=== PATIENT | male | born 1980 | race African-American/Black ===

== ENCOUNTER 2016-12-16 20:22 | Inpatient (IN) | payer OTHER ==
[2016-12-16] MEDS ORDERED: SODIUM CHLORIDE 0.9% 1000 ML INFUS.BAG IV PRN (21:01)
--- NOTE | 2016-12-16 21:48 | PDOC ---
History of Present Illness - General Chief Complaint: Blood Pressure Problem Stated Complaint: ALTERED MENTAL STATUS Time Seen by Provider: 12/16/16 20:27 Past History - Past Medical History Allergies/Adverse Reactions: Allergies Allergy/AdvReac Type Severity Reaction Status Date / Time No Known Allergies Allergy Verified 06/18/13 23:43 Home Medications: Ambulatory Orders Atenolol [Tenormin -] 25 mg PEG DAILY 06/19/13 Baclofen [Lioresal -] 10 mg PEG DAILY 06/19/13 LA/Bif Animalis/lb/S.thermophl [Acidophilus Xtra Caplet] 1 each PEG BID Metoclopramide HCl 10 mg PEG BID 06/19/13 Mometasone Furoate [Nasonex] 1 - 2 inh NS DAILY 06/19/13 Omeprazole Magnesium [Prilosec (OTC)] 20 mg PEG BID 06/19/13 Pnv/Iron,Carb/Om-3/FA/Fat 1 [Multivitamin with Minerals Cap] 1 cap PEG DAILY Potassium Chloride 10 meq PEG DAILY 06/19/13 Tiagabine HCl [Gabitril] 4 mg PEG TID 06/19/13 Tizanidine HCl 4 mg PEG QID 06/19/13 Anemia: No Asthma: No Cancer: No Cardiac Disorders: No CVA: No COPD: No CHF: No Dementia: Yes Diabetes: No GI Disorders: Yes (feeding tube) Disorders: No HTN: No Hypercholesterolemia: No Liver Disease: No Seizures: No Thyroid Disease: No - Surgical History Abdominal Surgery: Yes (feeding tube) - Suicide/Smoking/Psychosocial Hx Smoking History: Never smoked Have you smoked in the past 12 months: No Hx Alcohol Use: No Substance Use Type: None *Physical Exam - Vital Signs Last Vital Signs Temp Pulse Resp BP Pulse Ox 99.6 F 78 18 91/60 97 12/16/16 20:26 12/16/16 20:26 12/16/16 20:26 12/16/16 20:26 12/16/16 20:26
--- NOTE | 2016-12-16 21:48 | PDOC ---
History of Present Illness - General Chief Complaint: Blood Pressure Problem Stated Complaint: ALTERED MENTAL STATUS Time Seen by Provider: 12/16/16 20:27 History Source: Half-Way Records Exam Limitations: Clinical Condition - History of Present Illness Initial Comments: 12/16/16 21:42 Patient is a 36M with history of congenital quadriplegia, general convulsive epilepsy, profound mental retardation and monocular exotropia here today complaining of hypotensino. longterm records state that his blood pressure was 84/34 and was satting 80% on room air. There's no mention of fever. The only other history available is that he has a new GT and JT tube. The start time of these symptoms is unclear. Past History - Past Medical History Allergies/Adverse Reactions: Allergies Allergy/AdvReac Type Severity Reaction Status Date / Time No Known Allergies Allergy Verified 06/18/13 23:43 Home Medications: Ambulatory Orders Atenolol [Tenormin -] 25 mg PEG DAILY 06/19/13 Baclofen [Lioresal -] 10 mg PEG DAILY 06/19/13 LA/Bif Animalis/lb/S.thermophl [Acidophilus Xtra Caplet] 1 each PEG BID Metoclopramide HCl 10 mg PEG BID 06/19/13 Mometasone Furoate [Nasonex] 1 - 2 inh NS DAILY 06/19/13 Omeprazole Magnesium [Prilosec (OTC)] 20 mg PEG BID 06/19/13 Pnv/Iron,Carb/Om-3/FA/Fat 1 [Multivitamin with Minerals Cap] 1 cap PEG DAILY Potassium Chloride 10 meq PEG DAILY 06/19/13 Tiagabine HCl [Gabitril] 4 mg PEG TID 06/19/13 Tizanidine HCl 4 mg PEG QID 06/19/13 Anemia: No Asthma: No Cancer: No Cardiac Disorders: No CVA: No COPD: No CHF: No Dementia: Yes Diabetes: No GI Disorders: Yes (feeding tube) Disorders: No HTN: No Hypercholesterolemia: No Liver Disease: No Seizures: No Thyroid Disease: No - Surgical History Abdominal Surgery: Yes (feeding tube) - Suicide/Smoking/Psychosocial Hx Smoking History: Never smoked Have you smoked in the past 12 months: No Hx Alcohol Use: No Substance Use Type: None Review of Systems - Review of Systems Able to Perform ROS?: No *Physical Exam - Vital Signs Last Vital Signs Temp Pulse Resp BP Pulse Ox 99.6 F 78 18 91/60 97 12/16/16 20:26 12/16/16 20:26 12/16/16 20:26 12/16/16 20:26 12/16/16 20:26 - Physical Exam Comments: 12/16/16 21:55 GENERAL: Awake, non-communicative, large amount of excretions around mouth HEAD: Atraumatic EYES: PERRLA, EOMI, sclera anicteric, conjunctiva clear ENT: Auricles normal inspection, hearing grossly normal, nares patent, oropharynx clear without exudates. Moist mucosa LUNGS: Tachypneic, coarse breath sounds bilaterally. HEART: Regular rate and rhythm, normal S1 and S2, no murmurs, rubs or gallops, peripheral pulses normal and equal bilaterally. ABDOMEN: Soft, nontender, normoactive bowel sounds. G tube and J tube present. No guarding, no rebound. NEUROLOGICAL: Cranial nerves II through XII grossly intact. No focal sensorimotor deficits, moves all extremities SKIN: Warm, Dry, normal turgor, no rashes or lesions noted. ED Treatment Course - RADIOLOGY Radiology Studies Ordered: Category Date Time Status CHEST X-RAY PORTABLE* [RAD] Stat Radiology 12/16/16 21:01 Ordered Medical Decision Making - Medical Decision Making 12/16/16 21:56 Patient is a 36M with history of profound mental retardation, congenital quadriplegia, exopthalmos here today complaining of hypotension. Initial blood pressure here 91/60. Septic workup initiated. Will sign out to Dr Roach. Concern is for aspiration pneumonia. *DC/Admit/Observation/Transfer Diagnosis at time of Disposition: Pneumonia
--- NOTE | 2016-12-16 21:50 | PDOC ---
Attending Attestation - Medical Decision Making 12/17/16 04:31 THIS IS A PRELIMINARY REPORT FROM [facility] EXAM: CT ABDOMEN AND PELVIS without contrast IMAGES: [id number] EXAM DATE AND TIME: 2016-12-17 01:06:36 REASON FOR EXAM: Abdominal pain COMPARISON: None. FINDINGS: Lung bases are clear. The visualized cardiac chambers are normal size and configuration. Normal unenhanced liver, gallbladder, pancreas, spleen, adrenal glands and kidneys. Jejunostomy tube appears to be appropriately positioned without obvious bowel obstruction or inflammation there is a moderate amount of pelvic free fluid with layering density, possibly indicating bowel perforation and intraperitoneal contrast.. There is no aortic aneurysm. There is no significant retroperitoneal lymphadenopathy. Appendix not identified. The urinary bladder and prostate gland are normal. There is no significant pelvic lymphadenopathy. Severe scoliosis is noted. There is a right ischial decubitus ulcer with possible chronic right ischial tuberosity osteomyelitis. There is no discrete abscess. Both hips are dislocated, presumably chronic. IMPRESSION Moderate amount of free fluid within the layering dense material, possibly intraperitoneal oral contrast without perforation although there is no definite free air or abscess. Posterior right pelvic effusion is also suspected chronic osteomyelitis of the right ischial tuberosity. Addendum: There aren't acute dissected droplets of free air within the fluid which would also suggest a bowel perforation. There is a left abdominal ostomy as well. This finding was verbally communicated to Doctor Zachary on ThuDecember 17 2016 03:51:59 EDT. THIS DOCUMENT HAS BEEN ELECTRONICALLY SIGNED Gokul Michele MD <Andra Sifuentes - Last Filed: 12/17/16 04:31> - Resident Resident Name: Doc Enamorado - ED Attending Attestation I have performed the following: I have examined & evaluated the patient, The case was reviewed & discussed with the resident, I agree w/resident's findings & plan, Exceptions are as noted - HPI HPI: 12/16/16 21:49 36 yo male BIBA from [facility] for hypotension and hypoxia PMH MR,quadraplegia with congental deformities PSH j tube,g tube 12/16/16 22:00 - Physicial Exam PE: 12/16/16 22:02 36 yo male brouight in with unstable vital signs hypotensive and hypoxia eyes exohthalmous lungs coaurse breath sounds,rhonchi abd has g tube neuro nonverbal.nonambulatory - Medical Decision Making 12/16/16 22:03 Concern for sepsis and sepsis w/u initiated 12/17/16 05:00 PT GIVEN OC ACOSTA thru g tube/wbc 20,000 admitted to hospitalist <Yoselin Roach - Last Filed: 12/17/16 05:01>
[2016-12-16 23:05] LABS: INR 1.15 (0.82-1.09); PROTHROMBIN TIME (PATIENT) 12.7 SEC (9.98-11.88)
[2016-12-16 23:08] LABS: ACTIVATED PTT 20.6 SECONDS (26.9-34.4)
[2016-12-16 23:14] LABS: MCH 23.9 pg (25.7-33.7); MCHC 32.8 g/dl (32.0-35.9); MEAN CELL VOLUME 72.9 fl (80-96); MEAN PLT VOLUME 7.7 fl (7.5-11.1); PLATELET COUNT 334 K/MM3 (134-434); RDW 15.8 % (11.9-15.9); WHITE BLOOD COUNT 20.1 K/mm3 (4.0-10.0)
[2016-12-16 23:18] LABS: ALBUMIN 3.9 g/dl (3.4-5.0); ANION GAP 10 (8-16); BILIRUBIN,TOTAL 0.7 mg/dL (0.2-1.0); CALCIUM 9.5 mg/dL (8.5-10.1); CO2 35 mmol/L (21-32); CREATININE 0.4 mg/dL (0.7-1.3); GLUCOSE,RANDOM 93 mg/dL (74-106); SGOT/AST 11 U/L (15-37); SGPT/ALT 18 U/L (12-78); TOT PROT 8.1 g/dl (6.4-8.2)
[2016-12-16 23:20] LABS: ALK PHOS 61 U/L (45-117); CPK 78 IU/L (39-308); TROPONIN I < 0.02 ng/ml (0.00-0.05)
[2016-12-17 00:04] LABS: PLATELET ESTIMATE ADEQUATE (NORMAL)
[2016-12-17 00:05] LABS: REACTIVE LYMPHOCYTES 1 % (0-80); TOTAL CELLS COUNTED 100
[2016-12-17 00:53] LABS: VENOUS PH 7.41 (7.32-7.42)
[2016-12-17 00:55] LABS: VENOUS BLOOD GAS HCO3 35.2 meq/L (19-25)
[2016-12-17] MEDS ORDERED: LEVOFLOXACIN 250 MG TABLET (FP) PO ONE (04:24)
[2016-12-17] MEDS ORDERED: LEVOFLOXACIN 500 MG TABLET (FP) ONE ×2 (04:30→04:44)
[2016-12-17] MEDS ORDERED: LEVOFLOXACIN 250 MG TABLET (FP) ONE ×2 (04:30→04:44)
[2016-12-17] MEDS ORDERED: metroNIDAZOLE 500 MG TABLET PO ONE (04:32)
[2016-12-17] MEDS ORDERED: metroNIDAZOLE 250 MG TABLET ONE ×2 (04:34→04:44)
--- NOTE | 2016-12-17 04:49 | PN ---
Teaching Attending Note Name of Resident: Papi Randhawa ATTENDING PHYSICIAN STATEMENT I saw and evaluated the patient. I reviewed the resident's note and discussed the case with the resident. I agree with the resident's findings and plan as documented. SUBJECTIVE: 36 yo M with pmhx of congenital quadriplegia, general convulsive epilepsy, profound mental retardation, and monocular extropia who was BIBA from [facility] for hypotension and increased RR (26). Upon arrival to ED pt.s BP was in 90-100 systolic and RR 20, with 02 97%. History cannot be obtained from pt. due to diminished capacity due to MR. History obtained from chart. OBJECTIVE: Physical: VS: Vital Signs Period Temp Pulse Resp BP Sys/Bruce Pulse Ox Last 24 Hr 99.6 F 78 18 91/60 97-98 GEN: NAD, resting in bed, AA0X0 HEENT: NCAT, PERRL, extropia CARD: RRR S1, S2 RESP: CTAB ABD: Open stoma mid epigastric area with area surrounding J tube with serosanginous drainage and pus. LLQ stoma draining yellow fluid. Pt. contracted unable to exam low back buttocks. EXT: Contracted extremities, No C/C/E CBCD WBC 20.1 K/mm3 (4.0-10.0) H D 12/16/16 22:44 RBC 4.41 M/mm3 (4.00-5.60) 12/16/16 22:44 Hgb 10.5 GM/dL (11.7-16.9) L 12/16/16 22:44 Hct 32.1 % (35.4-49) L 12/16/16 22:44 MCV 72.9 fl (80-96) L 12/16/16 22:44 MCHC 32.8 g/dl (32.0-35.9) 12/16/16 22:44 RDW 15.8 % (11.9-15.9) 12/16/16 22:44 Plt Count 334 K/MM3 (134-434) 12/16/16 22:44 MPV 7.7 fl (7.5-11.1) 12/16/16 22:44 CMP Sodium 132 mmol/L (136-145) L 12/16/16 22:44 Potassium 3.6 mmol/L (3.5-5.1) 12/16/16 22:44 Chloride 87 mmol/L (98-107) L 12/16/16 22:44 Carbon Dioxide 35 mmol/L (21-32) H D 12/16/16 22:44 Anion Gap 10 (8-16) 12/16/16 22:44 BUN 24 mg/dL (7-18) H 12/16/16 22:44 Creatinine 0.4 mg/dL (0.7-1.3) L 12/16/16 22:44 Creat Clearance w eGFR > 60 (>60) 12/16/16 22:44 Random Glucose 93 mg/dL (74-106) D 12/16/16 22:44 Calcium 9.5 mg/dL (8.5-10.1) 12/16/16 22:44 Total Bilirubin 0.7 mg/dL (0.2-1.0) D 12/16/16 22:44 AST 11 U/L (15-37) L 12/16/16 22:44 ALT 18 U/L (12-78) 12/16/16 22:44 Alkaline Phosphatase 61 U/L (45-117) 12/16/16 22:44 Total Protein 8.1 g/dl (6.4-8.2) 12/16/16 22:44 Albumin 3.9 g/dl (3.4-5.0) D 12/16/16 22:44 CARDIAC ENZYMES Creatine Kinase 78 IU/L (39-308) 12/16/16 22:44 Troponin I < 0.02 ng/ml (0.00-0.05) 12/16/16 22:44 CXR: NO acute Process CT ABD/PELVIS:Moderate Free fluid within layering dense material, possibly intraperitoneal oral contrast without perforation, although there is no definate free air or abscess. Posterior R. Pelvic Effusion, suspected Chronic Osteo of R. Iscial tuberosity. There are not acute dissected droplets of free air within the fluid. L. Abdominal ostomy. Ambulatory Orders Atenolol [Tenormin -] 25 mg PEG DAILY 06/19/13 Baclofen [Lioresal -] 10 mg PEG DAILY 06/19/13 LA/Bif Animalis/lb/S.thermophl [Acidophilus Xtra Caplet] 1 each PEG BID Metoclopramide HCl 10 mg PEG BID 06/19/13 Mometasone Furoate [Nasonex] 1 - 2 inh NS DAILY 06/19/13 Omeprazole Magnesium [Prilosec (OTC)] 20 mg PEG BID 06/19/13 Pnv/Iron,Carb/Om-3/FA/Fat 1 [Multivitamin with Minerals Cap] 1 cap PEG DAILY Potassium Chloride 10 meq PEG DAILY 06/19/13 Tiagabine HCl [Gabitril] 4 mg PEG TID 06/19/13 Tizanidine HCl 4 mg PEG QID 06/19/13 ASSESSMENT AND PLAN: 36 yo M with pmhx of MR, Quadriplegia, epilepsy, who was BIBA for Inc RR, and hypotension was found to have a leukocytosis in ED. Being admitted for sepsis 1.) Sepsis (inc. RR/Leukocytosis) - Most likley source gtube stoma, - manzano cx - Wound care/sx to eval. Stoma - UA stat - IVF - Repeat LA - Unable to obtain IV acess on patient- Levaquin/Flagyl for now - Wound cx - ESR/CRP 2.) Chronic OSteo of R. Iscial tuberosity -ESR/CRP - ID 3.) HTN - Hold all meds 4.) Dvt Ppx - Mod Risk - Scds for now Place in Med- Sx
--- NOTE | 2016-12-17 05:07 | HP ---
CHIEF COMPLAINT: Hypotension PCP: Anand HISTORY OF PRESENT ILLNESS: History taken from records and staff as patient is noncommunicative. Pt is 36M with extensive PMH including Congenital Quadriplegia, General convulsive epilepsy, Profound MR, Monocular extropia, nonverbal, severe mental deficit sent to ED because of hypotension (84/34) and hypoxia (80% on RA). Pt had a new J tube placed recently (exact date unknown). ER course was notable for: (1) Leukocytosis of 20, CT showing no acute free air in abdomen (2) (3) Recent Travel: none PAST MEDICAL HISTORY: as above PAST SURGICAL HISTORY: Social History: Smoking: no Alcohol: no Drugs: no Family History: none Allergies No Known Allergies Allergy (Verified 06/18/13 23:43) HOME MEDICATIONS: Home Medications Medication Instructions Recorded Atenolol [Tenormin -] 25 mg PEG DAILY 06/19/13 Baclofen [Lioresal -] 10 mg PEG DAILY 06/19/13 LA/Bif Animalis/lb/S.thermophl 1 each PEG BID 06/19/13 [Acidophilus Xtra Caplet] Metoclopramide HCl 10 mg PEG BID 06/19/13 Mometasone Furoate [Nasonex] 1 - 2 inh NS DAILY 06/19/13 Omeprazole Magnesium [Prilosec 20 mg PEG BID 06/19/13 (OTC)] Pnv/Iron,Carb/Om-3/FA/Fat 1 1 cap PEG DAILY 06/19/13 [Multivitamin with Minerals Cap] Potassium Chloride 10 meq PEG DAILY 06/19/13 Tiagabine HCl [Gabitril] 4 mg PEG TID 06/19/13 Tizanidine HCl 4 mg PEG QID 06/19/13 REVIEW OF SYSTEMS Limited. Pt is noncommunicative. CONSTITUTIONAL: Absent: fever, chills, diaphoresis, generalized weakness, malaise, loss of appetite, weight change HEENT: Absent: rhinorrhea, nasal congestion, throat pain, throat swelling, difficulty swallowing, mouth swelling, ear pain, eye pain, visual changes CARDIOVASCULAR: Absent: chest pain, syncope, palpitations, irregular heart rate, lightheadedness , peripheral edema RESPIRATORY: Absent: cough, shortness of breath, dyspnea with exertion, orthopnea, wheezing, stridor, hemoptysis GASTROINTESTINAL: Absent: abdominal pain, abdominal distension, nausea, vomiting, diarrhea, constipation, melena, hematochezia GENITOURINARY: Absent: dysuria, frequency, urgency, hesitancy, hematuria, flank pain, genital pain MUSCULOSKELETAL: Absent: myalgia, arthralgia, joint swelling, back pain, neck pain SKIN: Absent: rash, itching, pallor HEMATOLOGIC/IMMUNOLOGIC: Absent: easy bleeding, easy bruising, lymphadenopathy, frequent infections ENDOCRINE: Absent: unexplained weight gain, unexplained weight loss, heat intolerance, cold intolerance NEUROLOGIC: Absent: headache, focal weakness or paresthesias, dizziness, unsteady gait, seizure, mental status changes, bladder or bowel incontinence PSYCHIATRIC: Absent: anxiety, depression, suicidal or homicidal ideation, hallucinations. PHYSICAL EXAMINATION Vital Signs - 24 hr 12/16/16 12/16/16 20:26 22:45 Temperature 99.6 F Pulse Rate 78 Respiratory 18 Rate Blood Pressure 91/60 O2 Sat by Pulse 97 98 Oximetry (%) Limited exam. Pt noncommunicative GENERAL: Noncommunicative. Contracted HEAD: Normal with no signs of trauma. EYES:sclera anicteric, conjunctiva clear. EARS, NOSE, THROAT: nares patent, Moist mucous membranes. NECK: without lymphadenopathy, JVD, or masses. LUNGS: Breath sounds equal, clear to auscultation bilaterally. Pt makes noise, therefore difficult to auscultate HEART: Regular rate and rhythm, normal S1 and S2 without murmur, rub or gallop. ABDOMEN: Soft, not distended, normoactive bowel sounds, no guarding, no rebound , no masses. No hepatomegaly or splenomegaly. Colostomy intact and funtioning with pink healthy borders. J tube site looks infected/excoriated and funk. Possibly with exposed jejunum protruding. Borders of wound are funk and appear in poor condition. No active bleeding. Inferior Right buttock has small healing incision from prior procedure with dressing. No oozing. No sacral/hip decubitous ulcers MUSCULOSKELETAL: contracted. atrophy UPPER EXTREMITIES: 2+ pulses,contracted LOWER EXTREMITIES: 2+ pulses, No peripheral edema. SKIN: Warm, dry, normal turgor, no rashes or lesions noted, normal capillary refill. Laboratory Results - last 24 hr 12/16/16 12/16/16 12/16/16 22:44 22:44 22:44 WBC 20.1 H D RBC 4.41 Hgb 10.5 L Hct 32.1 L MCV 72.9 L MCH 23.9 L MCHC 32.8 RDW 15.8 Plt Count 334 MPV 7.7 Total Counted 100 Neutrophils % No Result Required. Neutrophils % (Manual) 78 Band Neuts % (Manual) 2 Lymphocytes % No Result Required. Lymphocytes % (Manual) 10 Monocytes % (Manual) 8 Eosinophils % (Manual) 1 Other Cell Type Platelet Estimate Adequate Platelet Comment Rare giant plts PT with INR 12.70 H INR 1.15 H PTT (Actin FS) 20.6 L VBG pH POC VBG pCO2 POC VBG pO2 Mixed VBG HCO3 Sodium 132 L Potassium 3.6 Chloride 87 L Carbon Dioxide 35 H D Anion Gap 10 BUN 24 H Creatinine 0.4 L Creat Clearance w eGFR > 60 Random Glucose 93 D Lactic Acid Calcium 9.5 Total Bilirubin 0.7 D AST 11 L ALT 18 Alkaline Phosphatase 61 Creatine Kinase 78 Troponin I < 0.02 Total Protein 8.1 Albumin 3.9 D Blood Type Antibody Screen 12/16/16 12/16/16 12/17/16 22:44 22:44 00:35 WBC RBC Hgb Hct MCV MCH MCHC RDW Plt Count MPV Total Counted Neutrophils % Neutrophils % (Manual) Band Neuts % (Manual) Lymphocytes % Lymphocytes % (Manual) Monocytes % (Manual) Eosinophils % (Manual) Other Cell Type Platelet Estimate Platelet Comment PT with INR INR PTT (Actin FS) VBG pH 7.41 POC VBG pCO2 56.9 H POC VBG pO2 105.0 H Mixed VBG HCO3 35.2 H Sodium Potassium Chloride Carbon Dioxide Anion Gap BUN Creatinine Creat Clearance w eGFR Random Glucose Lactic Acid 1.2 Calcium Total Bilirubin AST ALT Alkaline Phosphatase Creatine Kinase Troponin I Total Protein Albumin Blood Type A POSITIVE Antibody Screen Negative ASSESSMENT/PLAN: 36M w/ PMH Congenital Quadriplegia, General convulsive epilepsy, Profound MR, Monocular extropia, nonverbal, severe mental deficit sent to ED because of hypotension and hypoxia. Pt is being admitted for sepsis workup & possible wound infection. #Sepsis -tachypnea -leukocytosis -likely site, J-tube -U culture -blood culture -wound site culture -IV with IVF if possible to get a line -Levaquin & flagyl until line obtained -ESR, CRP #J-tube site -Appears in poor state. Edges of wound are discolored and inflamed. possibly with protruding bowel through excoriated skin with erythema and drainage -wound culture -levaqfederico, flagyl -Surg consult -ID consult #Hypotension -resolved. BP systolic now 130's -monitor #leukocytosis -WBC 20 -Levaquin -Flagyl #Chronic osteo of Ischial tuberosity -ESR/CRP #HTN -Hold meds at this time #DVT PPX -SCDs -HSQ #FEN -No fluids because of no IV -Na low - will replete -NPO for now #Dispo: admit to same day surgery center Papi Randhawa MD PGY-1 Discussed with senior Visit type - Emergency Visit Emergency Visit: Yes ED Registration Date: 12/17/16 Care time: The patient presented to the Emergency Department on the above date and was hospitalized for further evaluation of their emergent condition. - New Patient This patient is new to me today: Yes Date on this admission: 12/18/16 - Critical Care Critical Care patient: No
--- NOTE | 2016-12-17 05:52 | HP ---
Admitting History and Physical - Admission Chief Complaint: desaturation History of Present Illness: 36 yo M with pmhx of congenital quadriplegia, general convulsive epilepsy, profound mental retardation, and monocular extropia who was BIBA from [facility] for hypotension desaturation and tachypnea. History taken from chart and ED as patient is non verbal. Patient noted to be septic in ED with leurkocytosis and tachypnea. No IV placed as he is a difficult stick. ABx given levaquin and flagyl through J tube. COncern that J tube is not in place. Limitations to Obtaining History: Physical Impairment, Other (non verbal) - Smoking History Smoking history: Never smoked Have you smoked in the past 12 months: No - Alcohol/Substance Use Hx Alcohol Use: No Home Medications - Allergies Allergies/Adverse Reactions: Allergies Allergy/AdvReac Type Severity Reaction Status Date / Time No Known Allergies Allergy Verified 06/18/13 23:43 - Home Medications Home Medications: Ambulatory Orders Atenolol [Tenormin -] 25 mg PEG DAILY 06/19/13 Baclofen [Lioresal -] 10 mg PEG DAILY 06/19/13 LA/Bif Animalis/lb/S.thermophl [Acidophilus Xtra Caplet] 1 each PEG BID Metoclopramide HCl 10 mg PEG BID 06/19/13 Mometasone Furoate [Nasonex] 1 - 2 inh NS DAILY 06/19/13 Omeprazole Magnesium [Prilosec (OTC)] 20 mg PEG BID 06/19/13 Pnv/Iron,Carb/Om-3/FA/Fat 1 [Multivitamin with Minerals Cap] 1 cap PEG DAILY Potassium Chloride 10 meq PEG DAILY 06/19/13 Tiagabine HCl [Gabitril] 4 mg PEG TID 06/19/13 Tizanidine HCl 4 mg PEG QID 06/19/13 Physical Examination Vital Signs: Vital Signs Temperature 99.6 F 12/16/16 20:26 Pulse Rate 78 12/16/16 20:26 Respiratory Rate 18 12/16/16 20:26 Blood Pressure 91/60 12/16/16 20:26 O2 Sat by Pulse Oximetry (%) 98 12/16/16 22:45 Constitutional: Yes: No Distress, Calm, Other (contracted extremities) Neck: Yes: Supple Cardiovascular: Yes: Regular Rate and Rhythm Respiratory: Yes: Other (coarse breath sounds bilaterally) Gastrointestinal: Yes: Soft (J tube in place. Dressing removed purulent drainage with excoriated necrotic skin and exposed bowel protruding from abdomen ), Other (LLL ostomy functioning) Edema: No Integumentary: Yes: Other (no decubi. Look like old I&D open healing wound without evidence of infection over right buttok) Labs: CBC, BMP 12/16/16 22:44 12/16/16 22:44 Imaging - Results Chest X-ray: Report Reviewed, Image Reviewed Cat Scan: Report Reviewed, Image Reviewed Assessment/Plan 36 yo M with pmhx of congenital quadriplegia, general convulsive epilepsy, profound mental retardation, and monocular extropia who was BIBA from [facility] for sepsis found to have excoriated skin and protruding bowel from the J tube site Problem List: Sepsis secondary to aspiration PNA vs UTI VS J tube site Hypotension Hypertenison profound MR Functional quadriplegia epilepsy monocular extropia plan: admit to med surg surgery consult ID consult Needs IV access may need IR Hold antihypertensives DVT PPx UA UCx BCx Can send wound culture but abdominal wound is superficial and may only yield skin debra organisms however there is some secretions that may yield intraabdominal organisms Visit type - Emergency Visit Emergency Visit: Yes Care time: The patient presented to the Emergency Department on the above date and was hospitalized for further evaluation of their emergent condition. - New Patient This patient is new to me today: Yes Date on this admission: 12/17/16 - Critical Care Critical Care patient: No
[2016-12-17 05:54] LABS: URINE APPEARANCE SLCLOUDY; URINE BILIRUBIN NEGATIVE (NEGATIVE); URINE BLOOD NEGATIVE (NEGATIVE); URINE COLOR YELLOW; URINE GLUCOSE (UA) NEGATIVE (NEGATIVE); URINE KETONE NEGATIVE (NEGATIVE); URINE NITRITE NEGATIVE (NEGATIVE); URINE PROTEIN NEGATIVE (NEGATIVE); URINE UROBILINOGEN NEGATIVE mg/dL (0.2-1.0)
[2016-12-17 05:56] LABS: URINE LEUK ESTERASE 2+ (NEGATIVE)
[2016-12-17 05:59] LABS: URINE BACTERIA RARE /hpf (NONE SEEN); URINE MUCUS RARE; URINE RBC 3 /hpf (0-3); URINE WBC 49 /hpf (3-5)
[2016-12-17] MEDS: HEPARIN NA (PORCINE) 5,000 UNITS/ML 1ML VIAL SQ SCH ×3 (06:22→22:26)
[2016-12-17 09:22] LABS: BASOPHIL 0.5 % (0-2.0); EOSINOPHIL 1.2 % (0-4.5); MCH 23.4 pg (25.7-33.7); MCHC 31.8 g/dl (32.0-35.9); MEAN CELL VOLUME 73.4 fl (80-96); MEAN PLT VOLUME 7.2 fl (7.5-11.1); NEUTROPHILS 82.4 % (42.8-82.8); PLATELET COUNT 340 K/MM3 (134-434); RDW 15.7 % (11.9-15.9); WHITE BLOOD COUNT 12.3 K/mm3 (4.0-10.0)
--- NOTE | 2016-12-17 10:50 | PN ---
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 I called the hospitalist and informed her of this finding he needs surgical evaluation and iv access she will speak with surgery could switch to zosyn/flagyl once access is placed he received levaquin and flagyl this am Problem List - Problems (1) Sepsis Code(s): A41.9 - SEPSIS, UNSPECIFIED ORGANISM (2) Perforated small intestine Code(s): K63.1 - PERFORATION OF INTESTINE (NONTRAUMATIC)
[2016-12-17 11:31] LABS: ALBUMIN 4.1 g/dl (3.4-5.0); ALK PHOS 67 U/L (45-117); ANION GAP 15 (8-16); BILIRUBIN,TOTAL 0.7 mg/dL (0.2-1.0); CALCIUM 9.9 mg/dL (8.5-10.1); CO2 33 mmol/L (21-32); CREATININE 0.6 mg/dL (0.7-1.3); GLUCOSE,RANDOM 110 mg/dL (74-106); MAGNESIUM 2.6 mg/dL (1.8-2.4); PHOSPHOROUS 3.9 mg/dL (2.5-4.9); SGOT/AST 10 U/L (15-37); SGPT/ALT 22 U/L (12-78); TOT PROT 8.7 g/dl (6.4-8.2)
--- NOTE | 2016-12-17 11:43 | CONS ---
DATE OF CONSULTATION: 12/17/2016 HISTORY OF PRESENT ILLNESS: This is a 36-year-old man with multiple developmental delays including congenital quadriplegia and profound mental retardation. He was sent to the emergency room for hypoxia and hypotension. He apparently had a new J tube placed recently the date of which is unknown. I am not sure where it was done, as well. He was evaluated overnight. He was noted to have an elevated white count of 20,000. He did not have any IV access and was given Levaquin and Flagyl. When I was asked to see him this morning, his blood pressure had improved, and he was smiling and responsive. He is nonverbal. As stated before, he received Levaquin and Flagyl through the tube. PAST MEDICAL HISTORY: Notable for history of congenital quadriplegia, general convulsive epilepsy, profound mental retardation. He has a J tube. He has a urostomy, as well. ALLERGIES: He has no known drug allergies. MEDICATIONS: At the [facility] include atenolol, baclofen, metoclopramide, Nasonex, omeprazole, multivitamins, potassium, Gabitril, and tizanidine. REVIEW OF SYSTEMS: Is not available. PHYSICAL EXAMINATION General: He is smiling. He does not appear to be in any distress. He does not follow any commands. Heart: Regular rate and rhythm. Lungs: Have diminished breath sounds at the bases. Abdomen: Is distended. He has a J tube with some surrounding brown drainage. The area is excoriated, and he has a urostomy with urine in it. Extremities: Without edema. Skin: He has a right buttock ulcer that is quite shallow without any erythema or drainage. DIAGNOSTIC DATA: White count on admission last night was 20,000, this morning it is 12, hemoglobin 11, platelets are 340. INR is 1.15. BUN 24, creatinine 0.4. LFTs are normal. Urinalysis has 49 white cells. Chest x-ray is negative for infiltrates. CT scan report of the abdomen and pelvis is notable for PEG tube within the body of the stomach, which has been advanced through the duodenum into a proximal jejunal loop. There is apparent perforation of the jejunal loop by the tube with pooling of tube feeds in the pelvis. SUMMARY: This is a 36-year-old man with intraabdominal sepsis with apparently a jejunal perforation secondary to J tube. I called the hospitalist and informed her of this finding. I tried to contact the surgeon, but was unsuccessful. She will contact the surgeon. As well, he needs IV access placed. We could switch him to Zosyn once he has his access. Awaiting surgical evaluation, as well. Further recommendations to follow based on his clinical course. BERTO MONTENEGRO M.D. [id number]
[2016-12-17 12:39] LABS: C-REACTIVE PROTEIN 11.4 MG/DL (0.00-0.3)
--- NOTE | 2016-12-17 12:46 | PN ---
Physical Exam: SUBJECTIVE: Patient seen and examined in the ER. He is non verbal at baseline but was awake and alert on exam. OBJECTIVE: CT/Abdomen & Pelvis shows apparent performation of a jejunal loop by the tube with pooling of tube feeds within anterior pelvis. Maintain NPO, Antibiotics Needs central line placement and ICU monitoring Physical exam: GENERAL: The patient is awake, alert, non verbal at baseline HEAD: Normal with no signs of trauma. EYES: PERRL, extraocular movements intact, sclera anicteric, conjunctiva clear. No ptosis. LUNGS: Scattered rhonchi HEART: Regular rate and rhythm, episodes of tachycardia ABDOMEN: Distended abdomen, bowel sounds not present, drainage of feces? and tube feeds through peg tube, excoriated skin surrounding the peg tube which is protruding thru abdomen EXTREMITIES: contracted NEUROLOGICAL: profound MR Active Medications Generic Name Dose Route Start Last Admin Trade Name Freq PRN Reason Stop Dose Admin Heparin Sodium (Porcine) 5,000 unit 12/17/16 06:00 12/17/16 06:22 Heparin - SQ 5,000 unit TID TOSIN Administration Sodium Chloride 1,000 mls @ 100 mls/hr 12/17/16 11:00 Normal Saline - IV ASDIR TOSIN Piperacillin Sod/Tazobactam Sod 3.375 gm 12/17/16 12:00 Zosyn 3.375gm Ivpb (Pre-Docked) IVPB Q8H-IV TOSIN Protocol Sodium Chloride 1,000 ml 12/16/16 21:01 Normal Saline - IV Q20M PRN MAP<65mm Hg OR SBP <90 ASSESSMENT/PLAN: Patient is a 36 year old male with a significant past medical history of congenital quadriplegia, general convulsive epilepsy, profound MR, monocular extropia, nonverbal, severe mental deficit. He was sent to the ED because of hypotension and hypoxia. Patient reportedly had a new J tube placed. CT 12/17/2016: PEG tube within the body of the stomach which has been advanced through the duodenem into the proximal jejunal loop. Apparent performation of the jejunal loop by the tube with pooling of tube feeding within the anterior pelvis. ID: Severe Sepsis secondary to small bowel perforation Hypotensive, hypoxic in ER with elevated WBC WBC 20K on presentation, now 12K On Zosyn q8 per ID Flagyl q8 NS @ 100cc/hr Blood and urine cultures pending Monitor in the ICU ID following Neuro: General Convulsive epilepsy A/P: On Tizanidine anticonvulsant which is not formulary here Also on Baclophen Has bowel perf and GT unable to be used Will dose on Keppra 500mg BID IV and consult neuro Will give Ativan IV for seizures Cardiology: Hypertension A/P: On Atenolol via peg, continue to hold in setting of sepsis Monitor BP F.E.N. Fluids: On NS @ 100cc/hr Electrolytes: monitor Nutrition: NPO Prophylaxis: DVT: heparin GI: Protonix Disposition; Full code, ICU monitoring
--- NOTE | 2016-12-17 12:53 | EKG ---
Test Reason : Blood Pressure : / mmHG Vent. Rate : 077 BPM Atrial Rate : 077 BPM P-R Int : 144 ms QRS Dur : 074 ms QT Int : 392 ms P-R-T Axes : 055 035 057 degrees QTc Int : 443 ms NORMAL SINUS RHYTHM POSSIBLE LEFT ATRIAL ENLARGEMENT NONSPECIFIC T WAVE ABNORMALITY ABNORMAL ECG WHEN COMPARED WITH ECG OF 18-JUN-2013 21:37, ST NO LONGER ELEVATED IN ANTERIOR LEADS T WAVE AMPLITUDE HAS DECREASED IN INFERIOR LEADS Confirmed by PHANI SELLERS MD ([id number]) on 12/17/2016 12:53:30 PM Referred By: Confirmed By:PHANI SELLERS MD
--- NOTE | 2016-12-17 13:18 | CONSULT ---
- Consultation REQUESTING PROVIDER: CARSON Bhagat CONSULT REQUEST: We have been asked to surgically evaluate this patient for management of a possible perforated viscus. PCP:Lance Bhagat NP HISTORY OF PRESENT ILLNESS:36 y/o male from [facility] was xferred here and found to have evidence of pneumoperitoneum due to a jejunal perforation form a recently replaced GJ tube. PMHx: reveiwed PSHx: laparotomy for placement of GJ tube and other unknown procedures Home Medications Medication Instructions Recorded Atenolol [Tenormin -] 25 mg PEG DAILY 06/19/13 Baclofen [Lioresal -] 10 mg PEG DAILY 06/19/13 LA/Bif Animalis/lb/S.thermophl 1 each PEG BID 06/19/13 [Acidophilus Xtra Caplet] Metoclopramide HCl 10 mg PEG BID 06/19/13 Mometasone Furoate [Nasonex] 1 - 2 inh NS DAILY 06/19/13 Omeprazole Magnesium [Prilosec 20 mg PEG BID 06/19/13 (OTC)] Pnv/Iron,Carb/Om-3/FA/Fat 1 1 cap PEG DAILY 06/19/13 [Multivitamin with Minerals Cap] Potassium Chloride 10 meq PEG DAILY 06/19/13 Tiagabine HCl [Gabitril] 4 mg PEG TID 06/19/13 Tizanidine HCl 4 mg PEG QID 06/19/13 Allergies Allergy/AdvReac Type Severity Reaction Status Date / Time No Known Allergies Allergy Verified 06/18/13 23:43 REVIEW OF SYSTEMS: unobtainable PHYSICAL EXAM: GENERAL: Awake, alert, and not oriented, in no acute distress ? HEAD: Normal with no signs of trauma. ABDOMEN: Soft, ?nontender ?, not distended, ? no guarding, ?no rebound, no masses. No organomegaly. 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 MUSCULOSKELETAL: Contractures UPPER EXTREMITIES: 2+ pulses, warm, well-perfused. No cyanosis. Cap refill <2 seconds. No peripheral edema. LOWER EXTREMITIES: 2+ pulses, warm, well-perfused. No calf tenderness. No peripheral edema. NEUROLOGICAL: No speech, gait not observed. PSYCH: Poor eye contact. SKIN: Warm, dry, normal turgor, no rashes or lesions noted. Vital Signs Temperature 99.6 F 12/16/16 20:26 Pulse Rate 86 12/17/16 07:04 Respiratory Rate 18 12/16/16 20:26 Blood Pressure 127/85 12/17/16 07:04 O2 Sat by Pulse Oximetry (%) 97 12/17/16 07:04 Lab Results WBC 12.3 K/mm3 (4.0-10.0) H D 12/17/16 09:10 RBC 4.77 M/mm3 (4.00-5.60) 12/17/16 09:10 Hgb 11.1 GM/dL (11.7-16.9) L 12/17/16 09:10 Hct 35.0 % (35.4-49) L 12/17/16 09:10 MCV 73.4 fl (80-96) L 12/17/16 09:10 MCHC 31.8 g/dl (32.0-35.9) L 12/17/16 09:10 RDW 15.7 % (11.9-15.9) 12/17/16 09:10 Plt Count 340 K/MM3 (134-434) 12/17/16 09:10 Sodium 136 mmol/L (136-145) 12/17/16 09:10 Potassium 3.7 mmol/L (3.5-5.1) 12/17/16 09:10 Chloride 88 mmol/L (98-107) L 12/17/16 09:10 Carbon Dioxide 33 mmol/L (21-32) H 12/17/16 09:10 Anion Gap 15 (8-16) 12/17/16 09:10 BUN 28 mg/dL (7-18) H 12/17/16 09:10 Creatinine 0.6 mg/dL (0.7-1.3) L D 12/17/16 09:10 Random Glucose 110 mg/dL (74-106) H 12/17/16 09:10 Calcium 9.9 mg/dL (8.5-10.1) 12/17/16 09:10 Blood Type A POSITIVE 12/16/16 22:44 Antibody Screen Negative 12/16/16 22:44 INR 1.15 (0.82-1.09) H 12/16/16 22:44 Imaging to date reviewed IMP: jejunal perforation PLAN: Long d/w mother re need for surgery; she is not able to decide at this time if she will give consent for surgery; I advised her that w or w/o surgery the prognosis may be the same due to his underlying condition and that I may not be able to get in to his abdomen and/or that I may not be able to find the perforation and that he may have a prolonged hospital stay and that he may never return to the facility where he has been living; d/w Jovana Benites RN from the facility as well; they will contact me with there decision once a team meeting w/ the mother is conveened and over; in the ineterim he should be NPO and get IVF and IVAB's. Abdulkadir Ralph MD FACS Visit type - Case Type Case Type: ED Admission - Emergency Emergency Visit: Yes ED Registration Date: 12/17/16 Care time: The patient presented to the Emergency Department on the above date and was hospitalized for further evaluation of their emergent condition. - New patient This patient is new to me today: Yes Date on this admission: 12/17/16 - Critical Care Critical Care patient: No
[2016-12-17] MEDS: SODIUM CHLORIDE 1,000 ML IV SCH ×2 (14:09→18:30)
[2016-12-17] MEDS: PIPERACILLIN/TAZOB 3.375 GM/50 ML PRE-DOCKED IVPB SCH ×2 (14:09→18:31)
--- NOTE | 2016-12-17 14:41 | CON.GI ---
Consult Consult Specialty:: GI Referred by:: Olayinka BYRD Reason for Consultation:: intra-abdominal sepsis - History of Present Illness History of Present Illness: The patient is non-verbal, non-communicative, 36 yo male who was transferred to ED with hypotenssion, desaturation an tachypnea. In ED found to have WBC 20K. A CT AP w/o revealed a pneumoteritoneum with G-tube tip protruding through the jejunal wall into the abdominal cavity with pooling of the feeding material within the pelvis. The G-tube was apparently repositioned recently elsewhere. The details of that are not immediately available. A caregiver at the patient bedside is not familiar with the details, or patient's medical history. No medical records from patient's residency available for review - History Source History Provided By: Medical Record, Transfer Record Limitations to Obtaining History: Other (severe mental retardation) 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) - Past Surgical History Additional Surgical History: As above - Alcohol/Substance Use Hx Alcohol Use: No - Smoking History Smoking history: Never smoked Have you smoked in the past 12 months: No - Social History Usual Living Arrangement: [facility] Home Medications - Allergies Allergies/Adverse Reactions: Allergies Allergy/AdvReac Type Severity Reaction Status Date / Time No Known Allergies Allergy Verified 06/18/13 23:43 - Home Medications Home Medications: Ambulatory Orders Atenolol [Tenormin -] 25 mg PEG DAILY 06/19/13 Baclofen [Lioresal -] 10 mg PEG DAILY 06/19/13 LA/Bif Animalis/lb/S.thermophl [Acidophilus Xtra Caplet] 1 each PEG BID Metoclopramide HCl 10 mg PEG BID 06/19/13 Mometasone Furoate [Nasonex] 1 - 2 inh NS DAILY 06/19/13 Omeprazole Magnesium [Prilosec (OTC)] 20 mg PEG BID 06/19/13 Pnv/Iron,Carb/Om-3/FA/Fat 1 [Multivitamin with Minerals Cap] 1 cap PEG DAILY Potassium Chloride 10 meq PEG DAILY 06/19/13 Tiagabine HCl [Gabitril] 4 mg PEG TID 06/19/13 Tizanidine HCl 4 mg PEG QID 06/19/13 Family Disease History - Family Disease History Family History: Unremarkable Review of Systems Unable to obtain ROS, reason: non-comunicative Physical Exam-GI Vital Signs: Vital Signs Temperature 98.6 F 12/17/16 13:30 Pulse Rate 105 H 12/17/16 13:30 Respiratory Rate 18 12/17/16 13:30 Blood Pressure 116/104 12/17/16 13:30 O2 Sat by Pulse Oximetry (%) 97 12/17/16 07:04 Constitutional: Yes: Other (the patient appears confortable, and not in any disctress). No: No Distress, Diaphoresis, Pallor Eyes: No: Sclera Icterus HENT: Yes: Drooling Cardiovascular: Yes: Regular Rate and Rhythm Respiratory: Yes: Regular. No: Accessory Muscle Use, Cough, Rales Gastrointestinal Inspection: Yes: Other (Small amounts of dark, bloody discharge from gastocutaneous track, LLQ colostomy bag over entero-cutaneous fistula. Non-distended abdomen with palpable bowel loops. Appears to be non- tender, no guarding elicited, however, these findings may not be reliable as the patients is non-communicative and non-verbal.) ...Auscultate: Yes: Normoactive Bowel Sounds ...Palpate: No: Guarding, Pulsatile Mass, Tenderness, Tenderness, Epigastium, Tenderness, Rebound ...Percussion: Yes: Dullness. No: Tympanitic Musculoskeletal: Yes: Other (contracted) Extremities: Yes: Other (deformed) Integumentary: No: Jaundice Wound/Incision: Yes: Draining, Reddened, Excoriated Labs: INR, PTT INR 1.15 (0.82-1.09) H 12/16/16 22:44 Current Medications Generic Name Dose Route Start Last Admin Trade Name Freq PRN Reason Stop Dose Admin Heparin Sodium (Porcine) 5,000 unit 12/17/16 06:00 12/17/16 14:08 Heparin - SQ Not Given TID TOSIN Sodium Chloride 1,000 mls @ 100 mls/hr 12/17/16 11:00 12/17/16 14:09 Normal Saline - IV Not Given ASDIR TOSIN Piperacillin Sod/Tazobactam Sod 3.375 gm 12/17/16 12:00 12/17/16 14:09 Zosyn 3.375gm Ivpb (Pre-Docked) IVPB Not Given Q8H-IV TOSIN Protocol Sodium Chloride 1,000 ml 12/16/16 21:01 Normal Saline - IV Q20M PRN MAP<65mm Hg OR SBP <90 Intake & Output 12/14/16 12/15/16 12/16/16 12/17/16 23:59 23:59 23:59 23:59 Weight 110 lb 3.698 oz Laboratory Results - last 24 hr 12/16/16 12/16/16 12/16/16 22:44 22:44 22:44 WBC 20.1 H D RBC 4.41 Hgb 10.5 L Hct 32.1 L MCV 72.9 L MCH 23.9 L MCHC 32.8 RDW 15.8 Plt Count 334 MPV 7.7 Total Counted 100 Neutrophils % No Result Required. Neutrophils % (Manual) 78 Band Neuts % (Manual) 2 Lymphocytes % No Result Required. Lymphocytes % (Manual) 10 Monocytes % Monocytes % (Manual) 8 Eosinophils % Eosinophils % (Manual) 1 Basophils % Other Cell Type Platelet Estimate Adequate Platelet Comment Rare giant plts PT with INR 12.70 H INR 1.15 H PTT (Actin FS) 20.6 L VBG pH POC VBG pCO2 POC VBG pO2 Mixed VBG HCO3 Sodium 132 L Potassium 3.6 Chloride 87 L Carbon Dioxide 35 H D Anion Gap 10 BUN 24 H Creatinine 0.4 L Creat Clearance w eGFR > 60 Random Glucose 93 D Lactic Acid Calcium 9.5 Phosphorus Magnesium Total Bilirubin 0.7 D AST 11 L ALT 18 Alkaline Phosphatase 61 Creatine Kinase 78 Troponin I < 0.02 C-Reactive Protein Total Protein 8.1 Albumin 3.9 D Urine Color Urine Appearance Urine pH Ur Specific [place] Urine Protein Urine Glucose (UA) Urine Ketones Urine Blood Urine Nitrite Urine Bilirubin Urine Urobilinogen Urine RBC Urine WBC Ur Epithelial Cells Urine Bacteria Urine Mucus Blood Type Antibody Screen 12/16/16 12/16/16 12/17/16 22:44 22:44 00:35 WBC RBC Hgb Hct MCV MCH MCHC RDW Plt Count MPV Total Counted Neutrophils % Neutrophils % (Manual) Band Neuts % (Manual) Lymphocytes % Lymphocytes % (Manual) Monocytes % Monocytes % (Manual) Eosinophils % Eosinophils % (Manual) Basophils % Other Cell Type Platelet Estimate Platelet Comment PT with INR INR PTT (Actin FS) VBG pH 7.41 POC VBG pCO2 56.9 H POC VBG pO2 105.0 H Mixed VBG HCO3 35.2 H Sodium Potassium Chloride Carbon Dioxide Anion Gap BUN Creatinine Creat Clearance w eGFR Random Glucose Lactic Acid 1.2 Calcium Phosphorus Magnesium Total Bilirubin AST ALT Alkaline Phosphatase Creatine Kinase Troponin I C-Reactive Protein Total Protein Albumin Urine Color Urine Appearance Urine pH Ur Specific [place] Urine Protein Urine Glucose (UA) Urine Ketones Urine Blood Urine Nitrite Urine Bilirubin Urine Urobilinogen Urine RBC Urine WBC Ur Epithelial Cells Urine Bacteria Urine Mucus Blood Type A POSITIVE Antibody Screen Negative 12/17/16 12/17/16 12/17/16 05:45 09:10 09:10 WBC 12.3 H D RBC 4.77 Hgb 11.1 L Hct 35.0 L MCV 73.4 L MCH 23.4 L MCHC 31.8 L RDW 15.7 Plt Count 340 MPV 7.2 L Total Counted Neutrophils % 82.4 D Neutrophils % (Manual) Band Neuts % (Manual) Lymphocytes % 11.8 D Lymphocytes % (Manual) Monocytes % 4.1 Monocytes % (Manual) Eosinophils % 1.2 Eosinophils % (Manual) Basophils % 0.5 Other Cell Type Platelet Estimate Platelet Comment PT with INR INR PTT (Actin FS) VBG pH POC VBG pCO2 POC VBG pO2 Mixed VBG HCO3 Sodium 136 Potassium 3.7 Chloride 88 L Carbon Dioxide 33 H Anion Gap 15 BUN 28 H Creatinine 0.6 L D Creat Clearance w eGFR > 60 Random Glucose 110 H Lactic Acid Calcium 9.9 Phosphorus 3.9 Magnesium 2.6 H Total Bilirubin 0.7 AST 10 L ALT 22 D Alkaline Phosphatase 67 Creatine Kinase Troponin I C-Reactive Protein 11.4 H Total Protein 8.7 H Albumin 4.1 Urine Color Yellow Urine Appearance Slcloudy Urine pH 7.0 Ur Specific [place] 1.015 Urine Protein Negative Urine Glucose (UA) Negative Urine Ketones Negative Urine Blood Negative Urine Nitrite Negative Urine Bilirubin Negative Urine Urobilinogen Negative Urine RBC 3 Urine WBC 49 Ur Epithelial Cells Rare Urine Bacteria Rare Urine Mucus Rare Blood Type Antibody Screen Imaging - Results Cat Scan: Report Reviewed Assessment/Plan Perforated small bowel intraabdominal sepsis Doesn't appear critical at the time of exam Limited history No advance directive Surgical eval and plan noted ICU monitoring Agree with Zosyn Nothing per G-tube. IVF Close monitoring and correction of electrolytes Drainage and repair as per surgical team
--- NOTE | 2016-12-17 15:46 | CONSULT ---
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) - Past Surgical History Additional Surgical History: As above - Alcohol/Substance Use Hx Alcohol Use: No - Smoking History Smoking history: Never smoked Have you smoked in the past 12 months: No - Social History Usual Living Arrangement: [facility] Home Medications - Allergies Allergies/Adverse Reactions: Allergies Allergy/AdvReac Type Severity Reaction Status Date / Time No Known Allergies Allergy Verified 06/18/13 23:43 - Home Medications Home Medications: Ambulatory Orders Atenolol [Tenormin -] 25 mg PEG DAILY 06/19/13 Baclofen [Lioresal -] 10 mg PEG DAILY 06/19/13 LA/Bif Animalis/lb/S.thermophl [Acidophilus Xtra Caplet] 1 each PEG BID Metoclopramide HCl 10 mg PEG BID 06/19/13 Mometasone Furoate [Nasonex] 1 - 2 inh NS DAILY 06/19/13 Omeprazole Magnesium [Prilosec (OTC)] 20 mg PEG BID 06/19/13 Pnv/Iron,Carb/Om-3/FA/Fat 1 [Multivitamin with Minerals Cap] 1 cap PEG DAILY Potassium Chloride 10 meq PEG DAILY 06/19/13 Tiagabine HCl [Gabitril] 4 mg PEG TID 06/19/13 Tizanidine HCl 4 mg PEG QID 06/19/13 Physical Exam Vital Signs: Vital Signs Temperature 98.6 F 12/17/16 13:30 Pulse Rate 105 H 12/17/16 13:30 Respiratory Rate 18 12/17/16 13:30 Blood Pressure 116/104 12/17/16 13:30 O2 Sat by Pulse Oximetry (%) 97 12/17/16 07:04 Visit type - Emergency Visit Emergency Visit: No - New Patient This patient is new to me today: No - Critical Care Critical Care patient: No
--- NOTE | 2016-12-17 16:57 | PN ---
Progress Note (short form) - Note Progress Note: Attending Surgeon Seen in f/u VSS AF abdomen-as before; no evidence of an acute surgical abdomen IMP: presumed jejunal perforation from feeding tube. PLAN: [facility] NPO/IVF/IVABS; patient is decompressed distally by entero- cutaneous fistula; suggest NGT/GT to LCWS to decompress proximally; as of this time 4:54 PM have not had a return call from the patients mother/facility; will continue as above; ? contrast study through GJ tube and ?? evaluation for IR drainage of pelvic collection; prognosis with or without surgical intervention remains poor. Abdulkadir Ralph MD FACS
[2016-12-17 17:15] VITALS: BMI 18.2
[2016-12-17] MEDS ORDERED: PNEUMOC 13-VAL CONJ-DIP CRM/PF 0.5 ML DISP.SYRIN IM ONE (17:15)
--- NOTE | 2016-12-17 17:58 | PN ---
Progress Note (short form) - Note Progress Note: vascular surgery Pt seen and examined. Right femoral vein TLC placed guidewire removed. All ports flushed. can use TLC for treatment. Zander powell DO
[2016-12-17] MEDS ORDERED: PIPERACILLIN/TAZOB 3.375 GM 50 ML IVPB ONE (18:15)
[2016-12-17] MEDS ORDERED: PANTOPRAZOLE SODIUM 100 ML IVPB ONE (19:22)
[2016-12-17] MEDS ORDERED: METRONIDAZOLE 500 MG PREMIXED 100 ML IVPB ONE (19:22)
[2016-12-17] MEDS ORDERED: levETIRAcetam 500 MG/5 ML INJECTION VIAL IVPB ONE (19:22)
[2016-12-17] MEDS: METRONIDAZOLE 500 MG PREMIXED 100 ML IVPB SCH (19:26)
[2016-12-17] MEDS ORDERED: SODIUM CHLORIDE 1,000 ML IV SCH (20:33)
[2016-12-17] MEDS ORDERED: SODIUM CHLORIDE 0.9% 1000 ML INFUS.BAG IV PRN (20:33)
[2016-12-17] MEDS: PANTOPRAZOLE SODIUM 40 MG in SODIUM CHLORIDE 100 ML IVPB SCH (22:21)
[2016-12-17] MEDS: levETIRAcetam 500 MG/5 ML INJECTION VIAL IVPB SCH (22:21)
--- NOTE | 2016-12-17 23:24 | CONSULT ---
Consult Consult Specialty:: PULM / CCM Referred by:: Dr. Bhagat Reason for Consultation:: Perf Bowel - History of Present Illness Chief Complaint: Abd Pain History of Present Illness: Mr. Causey is a 36 y/o man, [facility] resident, non-verbal, non-communicative, transferred to ED w/ hypotenssion, desaturation an tachypnea. In ED found to have WBC 20K. A CT AP w/o revealed a pneumoteritoneum with G-tube tip protruding through the jejunal wall into the abdominal cavity with pooling of the feeding material within the pelvis. The G-tube was apparently repositioned recently elsewhere. The details of that are not immediately available. Pt admitted to the ICU for Perf Bowel. 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) - Past Surgical History Additional Surgical History: As above - Alcohol/Substance Use Hx Alcohol Use: No - Smoking History Smoking history: Never smoked Have you smoked in the past 12 months: No - Social History Usual Living Arrangement: Intermediate Place of : [facility] History of Recent Travel: No Home Medications - Allergies Allergies/Adverse Reactions: Allergies Allergy/AdvReac Type Severity Reaction Status Date / Time No Known Allergies Allergy Verified 06/18/13 23:43 - Home Medications Home Medications: Ambulatory Orders Atenolol [Tenormin -] 25 mg PEG DAILY 06/19/13 Baclofen [Lioresal -] 10 mg PEG TID 06/19/13 LA/Bif Animalis/lb/S.thermophl [Acidophilus Xtra Caplet] 1 each PEG BID Mometasone Furoate [Nasonex] 1 - 2 inh NS DAILY 06/19/13 Pnv/Iron,Carb/Om-3/FA/Fat 1 [Multivitamin with Minerals Cap] 1 cap PEG DAILY Tiagabine HCl [Gabitril] 4 mg PEG TID 06/19/13 Tizanidine HCl 4 mg PEG QID 06/19/13 Albuterol 0.083% Nebulizer Lupe [Ventolin 0.083%] 1 neb NEB Q4H PRN 12/17/16 Bisacodyl Suppository [Dulcolax Suppository -] 10 mg RC ASDIR PRN 12/17/16 Calcium Carbonate/Vitamin D3 [Calcium 500 + Vit D 200 Caplet] 1 each PEG TID Enema Bag, Disposable [Enema Bag] 1 each RC ASDIR PRN 12/17/16 Ferrous Sulfate *Liquid* [Feosol] 5 ml PEG DAILY 12/17/16 Fluticasone Prop 0.05% Nasal [Flonase -] 1 spray NS DAILY 12/17/16 Mag Hydrox/Al Hydrox/Simeth [Antacid-Antigas Liquid] 5 ml PEG ASDIR PRN Metoclopramide HCl 5 mg PEG BID 12/17/16 Nut.tx.impaired Digest Fxn [Peptamen 1.5] 850 ml GT 199912/17/16 Potassium Chloride 7.5 ml PEG DAILY 12/17/16 Protein Supplement [Promod] 30 ml PEG DAILY 12/17/16 Simethicone Liquid [Mylicon] 40 mg GT Q6H 12/17/16 Sucralfate [Carafate] 1 gm PEG BID 12/17/16 Zinc Gluconate [Zinc] 10 mg DAILY 12/17/16 Zinc Oxide 0 gm TP PRN 12/17/16 Family Disease History - Family Disease History Family History: Unable to Obtain (non-verbal, non-communicative) Review of Systems Unable to obtain ROS, reason: Pt is Non-Verbal Physical Exam Vital Signs: Vital Signs Temperature 98.1 F 12/17/16 23:17 Pulse Rate 100 H 12/17/16 23:17 Respiratory Rate 20 12/17/16 23:17 Blood Pressure 112/57 12/17/16 23:17 O2 Sat by Pulse Oximetry (%) 98 12/17/16 20:26 Constitutional: Yes: Well Nourished, No Distress, Calm Eyes: Yes: WNL, Conjunctiva Clear, EOM Intact HENT: Yes: WNL, Atraumatic, Normocephalic Neck: Yes: WNL, Supple, Trachea Midline Cardiovascular: Yes: WNL, Regular Rate and Rhythm Respiratory: Yes: WNL, Regular, CTA Bilaterally Gastrointestinal: Yes: Distention, Hyperactive Bowel Sounds ...Rectal Exam: Yes: Deferred Renal/: Yes: WNL Breast(s): Yes: WNL Musculoskeletal: Yes: WNL Extremities: Yes: WNL, Other (R Femoral Vein w/ TLC.) Edema: No Peripheral Pulses WNL: Yes Neurological: Yes: WNL ...Motor Strength: WNL Psychiatric: Yes: WNL Labs: CBC, BMP 12/17/16 09:10 12/17/16 09:10 Imaging - Results Cat Scan: Report Reviewed (12/17 CTAP: reveals pneumoteritoneum with G-tube tip protruding through the jejunal wall into the abd cavity w/ pooling of the feeding material within the pelvis.) Problem List - Problems (1) Perforated small intestine Code(s): K63.1 - PERFORATION OF INTESTINE (NONTRAUMATIC) Assessment/Plan ASSESS: This is a 36 y/o man [facility] resident, non-verbal, non-communicative, w / bowel perf 2/2 feeding tube PLAN: -NPO -Supp FiO2 for an SpO2 > 92% -Nebs -IVFs -IV Abx -D/c all anti-HTN meds -Trend UOP -Trend BUN/Cr -Replete e-lytes prn -No evidence of an acute surgical abd @ this time -Mother is NOT giving consent for any non-emergent surgery -Consider IR for drainage of pelvic collection -Transfer to floor Thank you for this interesting consult [facility] ICU 44 PULM / CCM
[2016-12-18] MEDS: METRONIDAZOLE 500 MG PREMIXED 100 ML IVPB SCH ×3 (01:20→17:40)
[2016-12-18] MEDS: PIPERACILLIN/TAZOB 3.375 GM/50 ML PRE-DOCKED IVPB SCH ×3 (01:22→18:04)
[2016-12-18] MEDS: levETIRAcetam 500 MG/5 ML INJECTION VIAL IVPB SCH ×2 (05:58→18:20)
[2016-12-18] MEDS: HEPARIN NA (PORCINE) 5,000 UNITS/ML 1ML VIAL SQ SCH ×3 (05:59→21:24)
[2016-12-18 06:18] LABS: BASOPHIL 0.3 % (0-2.0); EOSINOPHIL 0.6 % (0-4.5); MCHC 32.2 g/dl (32.0-35.9); MEAN CELL VOLUME 74.3 fl (80-96); MEAN PLT VOLUME 7.4 fl (7.5-11.1); NEUTROPHILS 80.9 % (42.8-82.8); PLATELET COUNT 359 K/MM3 (134-434); RDW 15.9 % (11.9-15.9); WHITE BLOOD COUNT 11.8 K/mm3 (4.0-10.0)
[2016-12-18 06:57] LABS: ALBUMIN 3.7 g/dl (3.4-5.0); ANION GAP 13 (8-16); CO2 37 mmol/L (21-32); CREATININE 0.6 mg/dL (0.7-1.3); GLUCOSE,RANDOM 104 mg/dL (74-106); MAGNESIUM 2.4 mg/dL (1.8-2.4); PHOSPHOROUS 5.6 mg/dL (2.5-4.9); SGOT/AST 7 U/L (15-37); SGPT/ALT 19 U/L (12-78)
[2016-12-18 06:58] LABS: ALK PHOS 57 U/L (45-117); BILIRUBIN,TOTAL 0.9 mg/dL (0.2-1.0); TOT PROT 7.9 g/dl (6.4-8.2)
--- NOTE | 2016-12-18 07:24 | PN ---
Progress Note, Physician Chief Complaint: ID Zosyn & Metronidazole Appears in no acute distress - Current Medication List Current Medications: Active Medications Heparin Sodium (Porcine) (Heparin -) 5,000 unit SQ TID [facility] Last Admin: 12/18/16 05:59 Dose: 5,000 unit Metronidazole (Flagyl 500mg Premixed Ivpb -) 100 mls @ 100 mls/hr IVPB Q8H-IV TOSIN Last Admin: 12/18/16 01:20 Dose: 100 mls/hr Pantoprazole Sodium 40 mg/ (Sodium Chloride) 100 mls @ 200 mls/hr IVPB DAILY [facility] Last Admin: 12/17/16 22:21 Dose: 200 mls/hr Sodium Chloride (Normal Saline -) 1,000 mls @ 100 mls/hr IV ASDIR TOSIN Last Admin: 12/17/16 22:22 Dose: 100 mls/hr Levetiracetam (Keppra Injection -) 500 mg IVPB Q12H TOSIN Last Admin: 12/18/16 05:58 Dose: 500 mg Lorazepam (Ativan Injection -) 1 mg IVPUSH Q6H PRN PRN Reason: seizures Piperacillin Sod/Tazobactam Sod (Zosyn 3.375gm Ivpb (Pre-Docked)) 3.375 gm IVPB Q8H-IV TOSIN PRN Reason: Protocol Last Admin: 12/18/16 01:22 Dose: 3.375 gm Pneumococcal 13-Valent Conj Vacc (Prevnar 13 Syringe -) 0.5 ml IM .ONCE ONE Stop: 12/17/16 17:16 Sodium Chloride (Normal Saline -) 1,000 ml IV Q20M PRN PRN Reason: MAP<65mm Hg OR SBP <90 - Objective Vital Signs: Vital Signs Temperature 98.2 F 12/18/16 06:00 Pulse Rate 82 12/18/16 06:00 Respiratory Rate 17 12/18/16 06:00 Blood Pressure 99/73 12/18/16 06:00 O2 Sat by Pulse Oximetry (%) 97 12/17/16 22:00 Constitutional: Yes: No Distress, Other (Contracted) Cardiovascular: Yes: S1, S2 Respiratory: Yes: WNL, Regular, CTA Bilaterally Gastrointestinal: Yes: Soft, Other (Drains) Labs: CBC, BMP 12/18/16 05:20 12/18/16 05:20 INR, PTT INR 1.15 (0.82-1.09) H 12/16/16 22:44 Assessment/Plan Microbiology 12/17/16 05:49 Blood - Peripheral Venous Blood Culture - Preliminary NO GROWTH OBTAINED AFTER 24 HOURS, INCUBATION TO CONTINUE FOR 4 DAYS. 12/17/16 05:49 Blood - Peripheral Venous Blood Culture - Preliminary NO GROWTH OBTAINED AFTER 24 HOURS, INCUBATION TO CONTINUE FOR 4 DAYS. Laboratory Tests 12/18/16 12/18/16 05:20 05:20 WBC 11.8 H Hgb 10.3 L Hct 31.9 L Plt Count 359 BUN 33 H Creatinine 0.6 L Total Bilirubin 0.9 D ALT 19 Alkaline Phosphatase 57 Assessment Perforated viscus Clinically stable Fluid collection Pelvis Plan Supportive care and empiric intrabdominal coverage Discussed with LOUIS Redman MD
[2016-12-18] MEDS ORDERED: POTASSIUM CHLORIDE 10 MEQ in SODIUM CHLORIDE 1,000 ML IVPB SCH (07:30)
--- NOTE | 2016-12-18 08:07 | PN ---
Progress Note, Physician History of Present Illness: No events overnight. Appears comfortable. Smiling. - Current Medication List Current Medications: Active Medications Heparin Sodium (Porcine) (Heparin -) 5,000 unit SQ TID [facility]OS[facility] Last Admin: 12/18/16 05:59 Dose: 5,000 unit Metronidazole (Flagyl 500mg Premixed Ivpb -) 100 mls @ 100 mls/hr IVPB Q8H-IV TOSIN Last Admin: 12/18/16 01:20 Dose: 100 mls/hr Pantoprazole Sodium 40 mg/ (Sodium Chloride) 100 mls @ 200 mls/hr IVPB DAILY [facility]OSIN Last Admin: 12/17/16 22:21 Dose: 200 mls/hr Potassium Chloride (Potassium Chloride 10 Meq Premix Ivpb -) 100 mls @ 100 mls/ hr IVPB Q60M TOSIN Stop: 12/18/16 10:29 Potassium Chloride 10 meq/ (Sodium Chloride) 1,005 mls @ 100 mls/hr IVPB ASDIR TOSIN Levetiracetam (Keppra Injection -) 500 mg IVPB Q12H TOSIN Last Admin: 12/18/16 05:58 Dose: 500 mg Lorazepam (Ativan Injection -) 1 mg IVPUSH Q6H PRN PRN Reason: seizures Piperacillin Sod/Tazobactam Sod (Zosyn 3.375gm Ivpb (Pre-Docked)) 3.375 gm IVPB Q8H-IV TOSIN PRN Reason: Protocol Last Admin: 12/18/16 01:22 Dose: 3.375 gm Pneumococcal 13-Valent Conj Vacc (Prevnar 13 Syringe -) 0.5 ml IM .ONCE ONE Stop: 12/17/16 17:16 Sodium Chloride (Normal Saline -) 1,000 ml IV Q20M PRN PRN Reason: MAP<65mm Hg OR SBP <90 - Objective Vital Signs: Vital Signs Temperature 98.2 F 12/18/16 06:00 Pulse Rate 82 12/18/16 06:00 Respiratory Rate 17 12/18/16 06:00 Blood Pressure 99/73 12/18/16 06:00 O2 Sat by Pulse Oximetry (%) 97 12/17/16 22:00 Constitutional: Yes: No Distress, Calm Cardiovascular: Yes: Regular Rate and Rhythm Respiratory: Yes: Regular, CTA Bilaterally Gastrointestinal: Yes: Hypoactive Bowel Sounds, Palpable Mass, Other (G-tube, high output fistula). No: Distention, Melena, Pulsatile Mass, Rectal Bleeding, Tenderness, Tenderness, Epigastrium, Tenderness, Rebound, Vomiting Labs: CBC, BMP 12/18/16 05:20 12/18/16 05:20 INR, PTT INR 1.15 (0.82-1.09) H 12/16/16 22:44 Problem List - Problems (1) Perforated small intestine Assessment/Plan: Clinically stable. No evidence of acute/surgical abdomen. Family's decision noted Broad spectrum ABx as per ID IVF Monitor electrolytes Assess for need for drainage Code(s): K63.1 - PERFORATION OF INTESTINE (NONTRAUMATIC) Visit type - Emergency Visit Emergency Visit: No - New Patient This patient is new to me today: No - Critical Care Critical Care patient: No
--- NOTE | 2016-12-18 08:44 | CON.NEURO ---
Consult - History of Present Illness History of Present Illness: Pt is 36M with extensive PMH including Congenital Quadriplegia, General convulsive epilepsy, Profound MR, Monocular extropia, nonverbal, severe mental deficit sent to ED because of hypotension (84/34) and hypoxia (80% on RA). being treated for per bowel; CT AP w/o revealed a pneumoteritoneum with G-tube tip protruding through the jejunal wall into the abdominal cavity; no seizures noted by team -on keppra 500Q12 IV. 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) - Past Surgical History Additional Surgical History: As above - Alcohol/Substance Use Hx Alcohol Use: No - Smoking History Smoking history: Never smoked Have you smoked in the past 12 months: No - Social History Usual Living Arrangement: Shelter History of Recent Travel: No Home Medications - Allergies Allergies/Adverse Reactions: Allergies Allergy/AdvReac Type Severity Reaction Status Date / Time No Known Allergies Allergy Verified 06/18/13 23:43 - Home Medications Home Medications: Ambulatory Orders Atenolol [Tenormin -] 25 mg PEG DAILY 06/19/13 Baclofen [Lioresal -] 10 mg PEG TID 06/19/13 LA/Bif Animalis/lb/S.thermophl [Acidophilus Xtra Caplet] 1 each PEG BID Mometasone Furoate [Nasonex] 1 - 2 inh NS DAILY 06/19/13 Pnv/Iron,Carb/Om-3/FA/Fat 1 [Multivitamin with Minerals Cap] 1 cap PEG DAILY Tiagabine HCl [Gabitril] 4 mg PEG TID 06/19/13 Tizanidine HCl 4 mg PEG QID 06/19/13 Albuterol 0.083% Nebulizer Lupe [Ventolin 0.083%] 1 neb NEB Q4H PRN 12/17/16 Bisacodyl Suppository [Dulcolax Suppository -] 10 mg RC ASDIR PRN 12/17/16 Calcium Carbonate/Vitamin D3 [Calcium 500 + Vit D 200 Caplet] 1 each PEG TID Enema Bag, Disposable [Enema Bag] 1 each RC ASDIR PRN 12/17/16 Ferrous Sulfate *Liquid* [Feosol] 5 ml PEG DAILY 12/17/16 Fluticasone Prop 0.05% Nasal [Flonase -] 1 spray NS DAILY 12/17/16 Mag Hydrox/Al Hydrox/Simeth [Antacid-Antigas Liquid] 5 ml PEG ASDIR PRN Metoclopramide HCl 5 mg PEG BID 12/17/16 Nut.tx.impaired Digest Fxn [Peptamen 1.5] 850 ml GT 199912/17/16 Potassium Chloride 7.5 ml PEG DAILY 12/17/16 Protein Supplement [Promod] 30 ml PEG DAILY 12/17/16 Simethicone Liquid [Mylicon] 40 mg GT Q6H 12/17/16 Sucralfate [Carafate] 1 gm PEG BID 12/17/16 Zinc Gluconate [Zinc] 10 mg DAILY 12/17/16 Zinc Oxide 0 gm TP PRN 12/17/16 Physical Exam-Neuro Vital Signs: Vital Signs Temperature 98.2 F 12/18/16 06:00 Pulse Rate 82 12/18/16 06:00 Respiratory Rate 12/18/16 06:00 Blood Pressure 99/73 12/18/16 06:00 O2 Sat by Pulse Oximetry (%) 97 12/17/16 22:00 Labs: CBC, BMP 12/18/16 05:20 12/18/16 05:20 INR, PTT INR 1.15 (0.82-1.09) H 12/16/16 22:44
[2016-12-18] MEDS: SODIUM CHLORIDE 0.9%/KCL 1,000 ML IV SCH (08:55)
[2016-12-18] MEDS: KCL 10 MEQ IVPB 100 ML IVPB SCH ×7 (08:55→23:38)
[2016-12-18] MEDS: PANTOPRAZOLE SODIUM 40 MG in SODIUM CHLORIDE 100 ML IVPB SCH (10:37)
--- NOTE | 2016-12-18 11:53 | PN ---
Physical Exam: SUBJECTIVE: 36 M with h/o Congenital Quadriplegia, General convulsive epilepsy, Mental deficit, Monocular extropia, nonverbal, non commmunicative at baseline who presented to ED with SEPSIS elevated wbc 20,000, hypoxic, and hypotensive. CT scan (12/17) revealed pneumoperitoneum 2/2 G tube perforation through jejunal wall and transferred to ICU for management of bowel perforation, LLQ enterocutaneous fistula, and pelvic fluid collection. Pt. with no acute overnight events. OBJECTIVE: Vital Signs Period Temp Pulse Resp BP Sys/Bruce Pulse Ox Last 24 Hr 98.1 F-98.6 F 69-108 12-20 99-139/57-104 97-100 GENERAL: The patient is awake, and alert. He is smiling on presentation and NAD. HEAD: Normal with no signs of trauma. EYES: PERRL, extraocular movements intact, sclera anicteric, conjunctiva clear. No ptosis. ENT: Ears normal, nares patent, oropharynx clear without exudates, moist mucous membranes. NECK: Trachea midline, full range of motion, supple. LUNGS: Breath sounds equal, clear to auscultation bilaterally, no wheezes, no crackles, no accessory muscle use. HEART: Regular rate and rhythm, S1, S2 without murmur, rub or gallop. ABDOMEN:Left quadrant GJ tube in place. Soft, nontender, nondistended, normoactive bowel sounds, no guarding, no rebound, no hepatosplenomegaly, no masses. + enteorcutaneous fistula. EXTREMITIES: 2+ pulses, warm, well-perfused, no edema. NEUROLOGICAL: Cranial nerves II through XII grossly intact. gait not observed. PSYCH: Normal mood, normal affect. SKIN: Warm, dry, normal turgor, no rashes or lesions noted Laboratory Results - last 24 hr 12/18/16 12/18/16 05:20 05:20 WBC 11.8 H RBC 4.29 Hgb 10.3 L Hct 31.9 L MCV 74.3 L MCH 24.0 L MCHC 32.2 RDW 15.9 Plt Count 359 MPV 7.4 L Neutrophils % 80.9 Lymphocytes % 9.3 D Monocytes % 8.9 D Eosinophils % 0.6 Basophils % 0.3 Sodium 143 Potassium 2.5 L* D Chloride 93 L Carbon Dioxide 37 H Anion Gap 13 BUN 33 H Creatinine 0.6 L Creat Clearance w eGFR > 60 Random Glucose 104 Calcium 9.0 Phosphorus 5.6 H D Magnesium 2.4 Total Bilirubin 0.9 D AST 7 L D ALT 19 Alkaline Phosphatase 57 Total Protein 7.9 Albumin 3.7 Active Medications Generic Name Dose Route Start Last Admin Trade Name Freq PRN Reason Stop Dose Admin Heparin Sodium (Porcine) 5,000 unit 12/17/16 22:00 12/18/16 05:59 Heparin - SQ 5,000 unit TID TOSIN Administration Metronidazole 100 mls @ 100 mls/hr 12/17/16 18:00 12/18/16 09:10 Flagyl 500mg Premixed Ivpb - IVPB 100 mls/hr Q8H-IV TOSIN Administration Pantoprazole Sodium 40 mg/ 100 mls @ 200 mls/hr 12/17/16 18:30 12/18/16 10:37 Sodium Chloride IVPB 200 mls/hr DAILY TOSIN Administration Potassium Chloride/Sodium Chloride 1,000 mls @ 100 mls/hr 12/18/16 08:09 08:55 Ns+20 Meq Kcl - IV 100 mls/hr ASDIR TOSIN Administration Levetiracetam 500 mg 12/17/16 18:30 12/18/16 05:58 Keppra Injection - IVPB 500 mg Q12H TOSIN Administration Lorazepam 1 mg 12/17/16 18:28 Ativan Injection - IVPUSH Q6H PRN seizures Piperacillin Sod/Tazobactam Sod 3.375 gm 12/18/16 02:00 12/18/16 10:37 Zosyn 3.375gm Ivpb (Pre-Docked) IVPB 3.375 gm Q8H-IV TOSIN Administration Protocol Pneumococcal 13-Valent Conj Vacc 0.5 ml 12/17/16 17:15 Prevnar 13 Syringe - IM 12/17/16 17:16 .ONCE ONE Sodium Chloride 1,000 ml 12/17/16 20:33 Normal Saline - IV Q20M PRN MAP<65mm Hg OR SBP <90 ASSESSMENT/PLAN: 36 M with h/o Congenital Quadriplegia, General convulsive epilepsy, Mental deficit, Monocular extropia, nonverbal, non commmunicative at baseline who presented to ED with SEPSIS elevated wbc 20,000, hypoxic, and hypotensive. CT scan (12/17) revealed pneumoperitoneum 2/2 G tube perforation through jejunal wall and transferred to ICU for management of bowel perforation, LLQ enterocutaneous fistula, and pelvic fluid collection. GI: Bowel Perforation -Absent evidence of an acute surgical abdomen - Possible IR drianage of pelvic fluid collection. Awaiting consent for procedure from health care proxy. Mother refuses consent for non emergent procedures. Patient is resident at [facility]. Resp: -Supp FiO2 for an SpO2 > 92% -duonebs - IV Zosyn, Metronidazole Renal: -Trend UOP -Trend BUN/Cr FEN: IVF's, Lytes PRN, G tube PPx: SCD's, Heparin 5000 U TID, PPI Dispo: Remain on ICU floor Visit type - Emergency Visit Emergency Visit: Yes ED Registration Date: 12/17/16 Care time: The patient presented to the Emergency Department on the above date and was hospitalized for further evaluation of their emergent condition. - New Patient This patient is new to me today: Yes Date on this admission: 12/18/16 - Critical Care Critical Care patient: Yes Total Critical Care Time (in minutes): 35 Critical Care Statement: The care of this patient involved high complexity decision making to prevent further life threatening deterioration of the patient 's condition and/or to evaluate & treat vital organ system(s) failure or risk of failure.
--- NOTE | 2016-12-18 12:13 | PN ---
Teaching Attending Note Name of Resident: Cole Araiza ATTENDING PHYSICIAN STATEMENT I saw and evaluated the patient. I reviewed the resident's note and discussed the case with the resident. I agree with the resident's findings and plan as documented. SUBJECTIVE: Pt seen and examined in the ICU. No fevers recorded, hemodynamically stable. Pt nonverbal. OBJECTIVE: Last Vital Signs Temp Pulse Resp BP Pulse Ox 98.2 F 90 17 128/76 100 12/18/16 06:00 12/18/16 10:32 12/18/16 10:00 12/18/16 10:00 12/18/16 10:32 Intake & Output 12/15/16 12/16/16 12/17/16 12/18/16 23:59 23:59 23:59 23:59 Intake Total 50 1150 Output Total 160 300 Balance -110 850 Weight 110 lb 3.698 oz 106 lb 3.2 oz 82 lb 3.719 oz Gen: NAD at rest, awake Heart: RRR Lung: decreased breath sounds at the bases Abd: soft, +enterocutaneous fistula Ext: no edema, contracted CBC, BMP 12/18/16 05:20 12/18/16 10:00 Active Medications Heparin Sodium (Porcine) (Heparin -) 5,000 unit SQ TID [facility] Last Admin: 12/18/16 05:59 Dose: 5,000 unit Metronidazole (Flagyl 500mg Premixed Ivpb -) 100 mls @ 100 mls/hr IVPB Q8H-IV TOSIN Last Admin: 12/18/16 09:10 Dose: 100 mls/hr Pantoprazole Sodium 40 mg/ (Sodium Chloride) 100 mls @ 200 mls/hr IVPB DAILY [facility] Last Admin: 12/18/16 10:37 Dose: 200 mls/hr Potassium Chloride/Sodium Chloride (Ns+20 Meq Kcl -) 1,000 mls @ 100 mls/hr IV ASDIR [facility] Last Admin: 12/18/16 08:55 Dose: 100 mls/hr Levetiracetam (Keppra Injection -) 500 mg IVPB Q12H [facility] Last Admin: 12/18/16 05:58 Dose: 500 mg Lorazepam (Ativan Injection -) 1 mg IVPUSH Q6H PRN PRN Reason: seizures Piperacillin Sod/Tazobactam Sod (Zosyn 3.375gm Ivpb (Pre-Docked)) 3.375 gm IVPB Q8H-IV TOSIN PRN Reason: Protocol Last Admin: 12/18/16 10:37 Dose: 3.375 gm Pneumococcal 13-Valent Conj Vacc (Prevnar 13 Syringe -) 0.5 ml IM .ONCE ONE Stop: 12/17/16 17:16 Sodium Chloride (Normal Saline -) 1,000 ml IV Q20M PRN PRN Reason: MAP<65mm Hg OR SBP <90 ASSESSMENT AND PLAN: Bowel Perforation Intra-Abdominal Collection/Abscess Mental Retardation Functional Quadriplegia - continue antibiotics - f/u cultures - IVF - replete lytes - surgery f/u - aspiration precautions - IR eval for drainage of collection - DVT prophylaxis - continue ICU monitoring for now critical care time spent in reviewing chart, evaluating patient and formulating plan 35 min
--- NOTE | 2016-12-18 12:52 | PN ---
Progress Note (short form) - Note Progress Note: Attending Surgeon Seen in f/u; does not appear to be iany distress VSS AF abdomen-soft; ECF draining;GJT draining bilious material; o/w no change labs reviewed IMP: ? perforation of GI tract by GJT ? PLAN: Continue present tx.; get contrast study through GJT and IR evaluation for ? drainage of collection ?. Abdulkadir Ralph MD FACS
--- NOTE | 2016-12-18 12:56 | PN ---
Progress Note (short form) - Note Progress Note: Attending Surgeon Spoke w/ patients mother who declines any operative intervention if needed for her son at this time. Abdulkadir Ralph MD FACS
--- NOTE | 2016-12-18 18:18 | PN ---
Physical Exam: SUBJECTIVE: Patient seen and examined in the ICU He is non verbal at baseline but was awake and alert on exam. His mother is at the bedside. OBJECTIVE: CT/Abdomen & Pelvis shows apparent perforation of a jejunal loop by the tube with pooling of tube feeds within anterior pelvis. Maintain NPO, Antibiotics Physical exam: GENERAL: The patient is awake, alert, non verbal at baseline HEAD: Normal with no signs of trauma. EYES: PERRL, extraocular movements intact, sclera anicteric, conjunctiva clear. No ptosis. LUNGS: Scattered rhonchi HEART: Regular rate and rhythm, episodes of tachycardia ABDOMEN: Distended abdomen, bowel sounds not present, drainage of feces? and tube feeds through peg tube, excoriated skin surrounding the peg tube which is protruding thru abdomen EXTREMITIES: contracted NEUROLOGICAL: profound MR Vital Signs Period Temp Pulse Resp BP Sys/Bruce Pulse Ox Last 24 Hr 98.0 F-98.6 F 69-102 12-20 99-131/57-84 97-100 Laboratory Results - last 24 hr 12/18/16 12/18/16 12/18/16 05:20 05:20 10:00 WBC 11.8 H RBC 4.29 Hgb 10.3 L Hct 31.9 L MCV 74.3 L MCH 24.0 L MCHC 32.2 RDW 15.9 Plt Count 359 MPV 7.4 L Neutrophils % 80.9 Lymphocytes % 9.3 D Monocytes % 8.9 D Eosinophils % 0.6 Basophils % 0.3 Sodium 143 Potassium 2.5 L* D 2.6 L* Chloride 93 L Carbon Dioxide 37 H Anion Gap 13 BUN 33 H Creatinine 0.6 L Creat Clearance w eGFR > 60 Random Glucose 104 Calcium 9.0 Phosphorus 5.6 H D Magnesium 2.4 Total Bilirubin 0.9 D AST 7 L D ALT 19 Alkaline Phosphatase 57 Total Protein 7.9 Albumin 3.7 Active Medications Generic Name Dose Route Start Last Admin Trade Name Freq PRN Reason Stop Dose Admin Heparin Sodium (Porcine) 5,000 unit 12/17/16 22:00 12/18/16 17:40 Heparin - SQ 5,000 unit TID TOSIN Administration Metronidazole 100 mls @ 100 mls/hr 12/17/16 18:00 12/18/16 17:40 Flagyl 500mg Premixed Ivpb - IVPB 100 mls/hr Q8H-IV TOSIN Administration Pantoprazole Sodium 40 mg/ 100 mls @ 200 mls/hr 12/17/16 18:30 12/18/16 10:37 Sodium Chloride IVPB 200 mls/hr DAILY TOSIN Administration Potassium Chloride/Sodium Chloride 1,000 mls @ 100 mls/hr 12/18/16 08:09 08:55 Ns+20 Meq Kcl - IV 100 mls/hr ASDIR TOSIN Administration Levetiracetam 500 mg 12/17/16 18:30 12/18/16 05:58 Keppra Injection - IVPB 500 mg Q12H TOSIN Administration Lorazepam 1 mg 12/17/16 18:28 Ativan Injection - IVPUSH Q6H PRN seizures Piperacillin Sod/Tazobactam Sod 3.375 gm 12/18/16 02:00 12/18/16 18:04 Zosyn 3.375gm Ivpb (Pre-Docked) IVPB 3.375 gm Q8H-IV TOSIN Administration Protocol Sodium Chloride 1,000 ml 12/17/16 20:33 Normal Saline - IV Q20M PRN MAP<65mm Hg OR SBP <90 ASSESSMENT/PLAN: Patient is a 36 year old male (from [place])with a significant past medical history of congenital quadriplegia, general convulsive epilepsy, profound MR, monocular extropia, nonverbal, severe mental deficit. He was sent to the ED because of hypotension and hypoxia. Patient reportedly had a new J tube placed. He was transferred to ICU for management of bowel perforation, LLQ enterocutaneous fistula, and pelvic fluid collection. Imaging: CT 12/17/2016: PEG tube within the body of the stomach which has been advanced through the duodenem into the proximal jejunal loop. Apparent perforation of the jejunal loop by the tube with pooling of tube feeding within the anterior pelvis. Additional fluid in the perirectal space. GI/ID: Severe Sepsis secondary to small bowel perforation, pelvic fluid collection and LLQ fistula A/P: In ER he was hypotensive, hypoxic in ER with elevated WBC He appears to be improving clinically although the CT shows concern for a perforation and perirectal fluid WBC 20K on presentation, now 11.8K No fevers, vitals stable On Zosyn q8 per ID Flagyl q8 IVF Blood and urine cultures pending Monitor in the ICU IR tomorrow for pelvic fluid collection drainage ID following Neuro: General Convulsive epilepsy A/P: On Tizanidine anticonvulsant which is not formulary here Also on Baclophen Has bowel perf and GT unable to be used Will dose on Keppra 500mg BID IV and consult neuro Will give Ativan IV prn for breakthrough seizures Cardiology: Hypertension/Tachycardia: A/P: On Atenolol via peg, continue to hold in setting of sepsis Monitor BP F.E.N. Fluids: On NS with 20MEQ @ 100cc/hr Electrolytes: Critical K 2.6 today, on IVF NS with 20meq, 3 K riders today, trend K+ Nutrition: NPO, do not use PEG tube Prophylaxis: DVT: heparin GI: Protonix Disposition; Full code, ICU monitoring Visit type - Emergency Visit Emergency Visit: Yes ED Registration Date: 12/17/16 Care time: The patient presented to the Emergency Department on the above date and was hospitalized for further evaluation of their emergent condition. - New Patient This patient is new to me today: No - Critical Care Critical Care patient: No - Discharge Referral Referred to [facility] Med [facility] No
[2016-12-19] MEDS: KCL 10 MEQ IVPB 100 ML IVPB SCH ×2 (00:53→01:43)
[2016-12-19] MEDS: METRONIDAZOLE 500 MG PREMIXED 100 ML IVPB SCH (01:08)
[2016-12-19] MEDS: PIPERACILLIN/TAZOB 3.375 GM/50 ML PRE-DOCKED IVPB SCH ×3 (01:09→18:17)
[2016-12-19] MEDS: levETIRAcetam 500 MG/5 ML INJECTION VIAL IVPB SCH ×2 (06:03→18:17)
[2016-12-19] MEDS: HEPARIN NA (PORCINE) 5,000 UNITS/ML 1ML VIAL SQ SCH ×3 (06:03→22:35)
[2016-12-19 06:57] LABS: BASOPHIL 1.3 % (0-2.0); EOSINOPHIL 5.3 % (0-4.5); MCH 24.1 pg (25.7-33.7); MEAN CELL VOLUME 75.3 fl (80-96); MEAN PLT VOLUME 7.1 fl (7.5-11.1); NEUTROPHILS 62.4 % (42.8-82.8); PLATELET COUNT 232 K/MM3 (134-434); RDW 15.9 % (11.9-15.9); WHITE BLOOD COUNT 6.7 K/mm3 (4.0-10.0)
--- NOTE | 2016-12-19 07:27 | PN ---
Progress Note, Physician Chief Complaint: ID Surgical note reviewed Intrabd coverage Zosyn and metronidazole Afebrile - Current Medication List Current Medications: Active Medications Heparin Sodium (Porcine) (Heparin -) 5,000 unit SQ TID TOSIN Last Admin: 12/19/16 06:03 Dose: 5,000 unit Metronidazole (Flagyl 500mg Premixed Ivpb -) 100 mls @ 100 mls/hr IVPB Q8H-IV TOSIN Last Admin: 12/19/16 01:08 Dose: 100 mls/hr Pantoprazole Sodium 40 mg/ (Sodium Chloride) 100 mls @ 200 mls/hr IVPB DAILY TOSIN Last Admin: 12/18/16 10:37 Dose: 200 mls/hr Potassium Chloride/Sodium Chloride (Ns+20 Meq Kcl -) 1,000 mls @ 100 mls/hr IV ASDIR TOSIN Last Admin: 12/18/16 08:55 Dose: 100 mls/hr Levetiracetam (Keppra Injection -) 500 mg IVPB Q12H TOSIN Last Admin: 12/19/16 06:03 Dose: 500 mg Lorazepam (Ativan Injection -) 1 mg IVPUSH Q6H PRN PRN Reason: seizures Piperacillin Sod/Tazobactam Sod (Zosyn 3.375gm Ivpb (Pre-Docked)) 3.375 gm IVPB Q8H-IV TOSIN PRN Reason: Protocol Last Admin: 12/19/16 01:09 Dose: 3.375 gm Sodium Chloride (Normal Saline -) 1,000 ml IV Q20M PRN PRN Reason: MAP<65mm Hg OR SBP <90 - Objective Vital Signs: Vital Signs Temperature 98.6 F 12/19/16 06:00 Pulse Rate 94 H 12/19/16 06:00 Respiratory Rate 23 12/19/16 06:00 Blood Pressure 137/91 12/19/16 06:00 O2 Sat by Pulse Oximetry (%) 98 12/18/16 21:00 Cardiovascular: Yes: Regular Rate and Rhythm, S1, S2 Respiratory: Yes: WNL, Regular, CTA Bilaterally Gastrointestinal: Yes: Soft, Other (Tubes x 2) Labs: CBC, BMP 12/19/16 05:45 INR, PTT INR 1.15 (0.82-1.09) H 12/16/16 22:44 Assessment/Plan Microbiology 12/17/16 05:20 Abdomen Gram Stain - Final 12/16/16 23:00 Urine - Urine - Catheterized Urine Culture - Final NO GROWTH OBTAINED 12/17/16 05:49 Blood - Peripheral Venous Blood Culture - Preliminary NO GROWTH OBTAINED AFTER 48 HOURS, INCUBATION TO CONTINUE FOR 3 DAYS. 12/17/16 05:49 Blood - Peripheral Venous Blood Culture - Preliminary NO GROWTH OBTAINED AFTER 48 HOURS, INCUBATION TO CONTINUE FOR 3 DAYS. 12/17/16 05:20 Abdomen Wound Culture - Preliminary NO GROWTH OBTAINED AFTER 24 HOURS INCUBATION, REINCUBATED. Laboratory Tests 12/18/16 12/18/16 12/18/16 05:20 10:00 20:00 WBC Hgb Hct Plt Count Potassium 2.5 L* D 2.6 L* 3.0 L 12/19/16 05:45 WBC 6.7 D Hgb 8.3 L D Hct 26.0 L D Plt Count 232 D Potassium Assessment Perforated Jejunum ?? Plan Empiric Zosyn IR drainage per Dr Lee Redman MD
[2016-12-19 07:39] LABS: ALBUMIN 3.1 g/dl (3.4-5.0); ANION GAP 5 (8-16); CALCIUM 8.6 mg/dL (8.5-10.1); CO2 33 mmol/L (21-32); GLUCOSE,RANDOM 89 mg/dL (74-106); MAGNESIUM 2.3 mg/dL (1.8-2.4)
[2016-12-19 07:43] LABS: ALK PHOS 46 U/L (45-117); BILIRUBIN,TOTAL 0.6 mg/dL (0.2-1.0); CREATININE 0.5 mg/dL (0.7-1.3); PHOSPHOROUS 2.2 mg/dL (2.5-4.9); SGOT/AST 8 U/L (15-37); SGPT/ALT 14 U/L (12-78); TOT PROT 6.7 g/dl (6.4-8.2)
--- NOTE | 2016-12-19 07:48 | PN ---
Progress Note, Physician History of Present Illness: s/p pelvic collection drainage. - Current Medication List Current Medications: Active Medications Heparin Sodium (Porcine) (Heparin -) 5,000 unit SQ TID [facility] Last Admin: 12/19/16 06:03 Dose: 5,000 unit Pantoprazole Sodium 40 mg/ (Sodium Chloride) 100 mls @ 200 mls/hr IVPB DAILY [facility] Last Admin: 12/18/16 10:37 Dose: 200 mls/hr Potassium Chloride/Sodium Chloride (Ns+20 Meq Kcl -) 1,000 mls @ 100 mls/hr IV ASDIR [facility] Last Admin: 12/18/16 08:55 Dose: 100 mls/hr Levetiracetam (Keppra Injection -) 500 mg IVPB Q12H [facility] Last Admin: 12/19/16 06:03 Dose: 500 mg Lorazepam (Ativan Injection -) 1 mg IVPUSH Q6H PRN PRN Reason: seizures Piperacillin Sod/Tazobactam Sod (Zosyn 3.375gm Ivpb (Pre-Docked)) 3.375 gm IVPB Q8H-IV TOSIN PRN Reason: Protocol Last Admin: 12/19/16 01:09 Dose: 3.375 gm Sodium Chloride (Normal Saline -) 1,000 ml IV Q20M PRN PRN Reason: MAP<65mm Hg OR SBP <90 - Objective Vital Signs: Vital Signs Temperature 98.6 F 12/19/16 06:00 Pulse Rate 94 H 12/19/16 06:00 Respiratory Rate 23 12/19/16 06:00 Blood Pressure 137/91 12/19/16 06:00 O2 Sat by Pulse Oximetry (%) 98 12/18/16 21:00 Constitutional: Yes: No Distress, Calm Eyes: Yes: Conjunctiva Clear Cardiovascular: Yes: Regular Rate and Rhythm Respiratory: Yes: Regular Gastrointestinal: Yes: Soft, Palpable Mass. No: Distention, Hematemesis, Melena , Pulsatile Mass, Rectal Bleeding, Tenderness, Epigastrium, Tenderness, Rebound , Vomiting Labs: CBC, BMP 12/19/16 05:45 INR, PTT INR 1.15 (0.82-1.09) H 12/16/16 22:44 Abnormal Lab Results 12/18/16 12/18/16 12/19/16 10:00 20:00 05:45 RBC 3.46 L Hgb 8.3 L D Hct 26.0 L D MCV 75.3 L MCH 24.1 L MPV 7.1 L Eosinophils % 5.3 H D Potassium 2.6 L* 3.0 L Laboratory Results - last 24 hr 12/18/16 12/18/16 12/19/16 10:00 20:00 05:45 WBC 6.7 D RBC 3.46 L Hgb 8.3 L D Hct 26.0 L D MCV 75.3 L MCH 24.1 L MCHC 32.0 RDW 15.9 Plt Count 232 D MPV 7.1 L Neutrophils % 62.4 D Lymphocytes % 22.4 D Monocytes % 8.6 Eosinophils % 5.3 H D Basophils % 1.3 D Potassium 2.6 L* 3.0 L CBCD WBC 6.7 K/mm3 (4.0-10.0) D 12/19/16 05:45 RBC 3.46 M/mm3 (4.00-5.60) L 12/19/16 05:45 Hgb 8.3 GM/dL (11.7-16.9) L D 12/19/16 05:45 Hct 26.0 % (35.4-49) L D 12/19/16 05:45 MCV 75.3 fl (80-96) L 12/19/16 05:45 MCHC 32.0 g/dl (32.0-35.9) 12/19/16 05:45 RDW 15.9 % (11.9-15.9) 12/19/16 05:45 Plt Count 232 K/MM3 (134-434) D 12/19/16 05:45 MPV 7.1 fl (7.5-11.1) L 12/19/16 05:45 CMP Sodium 143 mmol/L (136-145) 12/18/16 05:20 Potassium 3.0 mmol/L (3.5-5.1) L 12/18/16 20:00 Chloride 93 mmol/L (98-107) L 12/18/16 05:20 Carbon Dioxide 37 mmol/L (21-32) H 12/18/16 05:20 Anion Gap 13 (8-16) 12/18/16 05:20 BUN 33 mg/dL (7-18) H 12/18/16 05:20 Creatinine 0.6 mg/dL (0.7-1.3) L 12/18/16 05:20 Creat Clearance w eGFR > 60 (>60) 12/18/16 05:20 Calcium 9.0 mg/dL (8.5-10.1) 12/18/16 05:20 Total Bilirubin 0.9 mg/dL (0.2-1.0) D 12/18/16 05:20 AST 7 U/L (15-37) L D 12/18/16 05:20 ALT 19 U/L (12-78) 12/18/16 05:20 Alkaline Phosphatase 57 U/L (45-117) 12/18/16 05:20 Total Protein 7.9 g/dl (6.4-8.2) 12/18/16 05:20 Albumin 3.7 g/dl (3.4-5.0) 12/18/16 05:20 Active Orders - 24 Hr 12/18/16 08:09 Sodium Chloride 0.9%/KCl [Ns+20 Meq KCl -] 1,000 ml IV ASDIR 12/18/16 08:41 ABSCESS DRAIN PELVIS [RADS] Routine 12/18/16 10:20 VREF SCREEN Stat 12/18/16 12:14 Reminder: new phy cons See Order 12/19/16 05:45 CMP [COMP METABOLIC PANEL] Routine LACTIC ACID Routine MAGNESIUM Routine PHOSPHOROUS Routine 12/19/16 10:00 POTASSIUM SERIES 12/19/16 12:00 BMP [BASIC METABOLIC PANEL] Stat 12/20/16 10:00 POTASSIUM SERIES 12/21/16 10:00 POTASSIUM SERIES Problem List - Problems (1) Perforated small intestine Assessment/Plan: Clinically stable. No evidence of acute/surgical abdomen. Broad spectrum ABx as per ID IVF Monitor electrolytes Code(s): K63.1 - PERFORATION OF INTESTINE (NONTRAUMATIC) Visit type - Emergency Visit Emergency Visit: No - New Patient This patient is new to me today: No - Critical Care Critical Care patient: No
[2016-12-19] MEDS ORDERED: NAPH,MB-DB/K PH,MBDB POWDER PACKET PO SCH (10:00)
--- NOTE | 2016-12-19 10:29 | PN ---
Progress Note (short form) - Note Progress Note: Attending Surgeon Remains in ICU; had IR procedure yesterday; report pending VSS AF abdomen-no change from previous WBC wnl IMP: ?? jejunal perforation w/? collection ? s/p IR drainage?? PLAN: Contrast study through jejunal lumen of GJ tube; check report for procedure done yesterday; will f/u; continue present tx. Abdulkadir Ralph MD FACS
[2016-12-19] MEDS: PANTOPRAZOLE SODIUM 40 MG in SODIUM CHLORIDE 100 ML IVPB SCH (10:42)
[2016-12-19] MEDS ORDERED: POTASSIUM PHOSPHATE 15 MM in DEXTROSE 5%-WATER - 250 ML IVPB ONE (11:30)
--- NOTE | 2016-12-19 11:39 | PN ---
Physical Exam: SUBJECTIVE: Patient seen and examined. He is stable after IR procedure, no signs of bleeding, no acute distress at this time. Events: - Scheduled IR bowel abscess drainage 12/18, however procedure aborted, awaiting call back from IR OBJECTIVE: Vital Signs Period Temp Pulse Resp BP Sys/Bruce Pulse Ox Last 24 Hr 98.0 F-98.9 F 88-112 12-54 108-145/66-97 98-100 PE Neuro: awake, alert, non verbal Pulm: + wet cough, b/l rhonchi +NC CV: s1 s2 rrr tachycardia no mrg Abd: J tube with brown/yellow output, entero-cutaneous fistula drainage LLQ, Skin: R groin central line CDI, gluteal stage 3 wound, Ext: upper ext contractures, no le edema Laboratory Results - last 24 hr 12/18/16 12/18/16 12/19/16 10:00 20:00 05:45 WBC 6.7 D RBC 3.46 L Hgb 8.3 L D Hct 26.0 L D MCV 75.3 L MCH 24.1 L MCHC 32.0 RDW 15.9 Plt Count 232 D MPV 7.1 L Neutrophils % 62.4 D Lymphocytes % 22.4 D Monocytes % 8.6 Eosinophils % 5.3 H D Basophils % 1.3 D Sodium Potassium 2.6 L* 3.0 L Chloride Carbon Dioxide Anion Gap BUN Creatinine Creat Clearance w eGFR Random Glucose Lactic Acid Calcium Phosphorus Magnesium Total Bilirubin AST ALT Alkaline Phosphatase Total Protein Albumin 12/19/16 12/19/16 05:45 05:45 WBC RBC Hgb Hct MCV MCH MCHC RDW Plt Count MPV Neutrophils % Lymphocytes % Monocytes % Eosinophils % Basophils % Sodium 145 Potassium 4.0 D Chloride 107 D Carbon Dioxide 33 H Anion Gap 5 L BUN 22 H D Creatinine 0.5 L Creat Clearance w eGFR > 60 Random Glucose 89 Lactic Acid 0.5 Calcium 8.6 Phosphorus 2.2 L D Magnesium 2.3 Total Bilirubin 0.6 D AST 8 L ALT 14 D Alkaline Phosphatase 46 Total Protein 6.7 Albumin 3.1 L Active Medications Generic Name Dose Route Start Last Admin Trade Name Freq PRN Reason Stop Dose Admin Heparin Sodium (Porcine) 5,000 unit 12/17/16 22:00 12/19/16 06:03 Heparin - SQ 5,000 unit TID TOSIN Administration Pantoprazole Sodium 40 mg/ 100 mls @ 200 mls/hr 12/17/16 18:30 12/19/16 10:42 Sodium Chloride IVPB 200 mls/hr DAILY TOSIN Administration Potassium Chloride/Sodium Chloride 1,000 mls @ 100 mls/hr 12/18/16 08:09 08:55 Ns+20 Meq Kcl - IV 100 mls/hr ASDIR TOSIN Administration Levetiracetam 500 mg 12/17/16 18:30 12/19/16 06:03 Keppra Injection - IVPB 500 mg Q12H TOSIN Administration Lorazepam 1 mg 12/17/16 18:28 Ativan Injection - IVPUSH Q6H PRN seizures Piperacillin Sod/Tazobactam Sod 3.375 gm 12/18/16 02:00 12/19/16 10:42 Zosyn 3.375gm Ivpb (Pre-Docked) IVPB 3.375 gm Q8H-IV TOSIN Administration Protocol Potassium Phos/Sodium Phos 1 packet 12/19/16 10:00 Phos-Nak Packet - PO DAILY TOSIN Sodium Chloride 1,000 ml 12/17/16 20:33 Normal Saline - IV Q20M PRN MAP<65mm Hg OR SBP <90 Microbiology 12/17/16 05:20 Gram Stain - Final Abdomen Wound Culture - Preliminary NO GROWTH OBTAINED AFTER 24 HOURS INCUBATION, REINCUBATED. 12/17/16 05:49 Blood Culture - Preliminary Blood - Peripheral Venous NO GROWTH OBTAINED AFTER 48 HOURS, INCUBATION TO CONTINUE FOR 3 DAYS. 12/17/16 05:49 Blood Culture - Preliminary Blood - Peripheral Venous NO GROWTH OBTAINED AFTER 48 HOURS, INCUBATION TO CONTINUE FOR 3 DAYS. 12/16/16 23:00 Urine Culture - Final Urine - Urine - Catheterized NO GROWTH OBTAINED Imaging: CT 12/17/2016: PEG tube within the body of the stomach which has been advanced through the duodenem into the proximal jejunal loop. Apparent perforation of the jejunal loop by the tube with pooling of tube feeding within the anterior pelvis. Additional fluid in the perirectal space. Assessment: 36 year old male [facility] resident, with congenital quadriplegia , general convulsive epilepsy, profound MR, monocular extropia, nonverbal, severe mental deficit admitted with sepsis due to bowel perforation 2/2 J tube placement. Plan: 1. Sepsis d/t bowel perforation - WBC today - Stop flagyl - Continue Zosyn - ID following 2. Small bowel perforation - ? bowel abscess drainage 12/18 - Prelim abdomen cx ngtd - AM abd xray report pending 3. General Convulsive epilepsy - Home Tizanidine anticonvulsant NF - Baclophen TID on hold for npo - Started Keppra 500mg BID IV - Ativan PRN 4. HTN - BP stable/HR controlled - Dose PRN labteolol as needed - Hold PO Atenolol 5. Nutrition - NPO - Start d5 03/24 NS @ 42cc x24 hr - Will re eval tomorrow for possible clinimix initiation tomorrow 6. Hypophosphatemia - Replete phos 15mm iv x1 Visit type - Emergency Visit Emergency Visit: Yes ED Registration Date: 12/17/16 Care time: The patient presented to the Emergency Department on the above date and was hospitalized for further evaluation of their emergent condition. - New Patient This patient is new to me today: Yes Date on this admission: 12/19/16 - Critical Care Critical Care patient: No
[2016-12-19] MEDS ORDERED: DEXTROSE 5%-0.45% SALINE 1,000 ML IV SCH (12:15)
--- NOTE | 2016-12-19 12:37 | PN ---
Teaching Attending Note Name of Resident: Yanna Roca ATTENDING PHYSICIAN STATEMENT I saw and evaluated the patient. I reviewed the resident's note and discussed the case with the resident. I agree with the resident's findings and plan as documented. SUBJECTIVE: Patient seen and examined in the ICU. No fevers recorded. Not enough fluid noted to have drainage performed. Hemodynamically stable. Nonverbal. OBJECTIVE: Intake & Output 12/16/16 12/17/16 12/18/16 12/19/16 23:59 23:59 23:59 23:59 Intake Total 50 1650 1950 Output Total 160 425 150 Balance -110 1225 1800 Weight 110 lb 3.698 oz 106 lb 3.2 oz 82 lb 3.719 oz 88 lb 13.541 oz Last Vital Signs Temp Pulse Resp BP Pulse Ox 98.8 F 91 H 22 120/89 98 12/19/16 10:00 12/19/16 10:00 12/19/16 10:00 12/19/16 10:00 12/18/16 21:00 Active Medications Heparin Sodium (Porcine) (Heparin -) 5,000 unit SQ TID TOSIN Last Admin: 12/19/16 06:03 Dose: 5,000 unit Potassium Phosphate 15 mm/ (Dextrose) 255 mls @ 62.5 mls/hr IVPB ONCE ONE Stop: 12/19/16 15:34 Dextrose/Sodium Chloride (D5-1/2ns -) 1,000 mls @ 42 mls/hr IV ASDIR TOSIN Levetiracetam (Keppra Injection -) 500 mg IVPB Q12H TOSIN Last Admin: 12/19/16 06:03 Dose: 500 mg Lorazepam (Ativan Injection -) 1 mg IVPUSH Q6H PRN PRN Reason: seizures Piperacillin Sod/Tazobactam Sod (Zosyn 3.375gm Ivpb (Pre-Docked)) 3.375 gm IVPB Q8H-IV TOSIN PRN Reason: Protocol Last Admin: 12/19/16 10:42 Dose: 3.375 gm Sodium Chloride (Normal Saline -) 1,000 ml IV Q20M PRN PRN Reason: MAP<65mm Hg OR SBP <90 Gen: NAD at rest, awake Heart: RRR Lung: decreased breath sounds at the bases Abd: soft, +enterocutaneous fistula Ext: no edema, contracted Laboratory Results - last 24 hr 12/18/16 12/19/16 12/19/16 20:00 05:45 05:45 WBC 6.7 D RBC 3.46 L Hgb 8.3 L D Hct 26.0 L D MCV 75.3 L MCH 24.1 L MCHC 32.0 RDW 15.9 Plt Count 232 D MPV 7.1 L Neutrophils % 62.4 D Lymphocytes % 22.4 D Monocytes % 8.6 Eosinophils % 5.3 H D Basophils % 1.3 D Sodium 145 Potassium 3.0 L 4.0 D Chloride 107 D Carbon Dioxide 33 H Anion Gap 5 L BUN 22 H D Creatinine 0.5 L Creat Clearance w eGFR > 60 Random Glucose 89 Lactic Acid Calcium 8.6 Phosphorus 2.2 L D Magnesium 2.3 Total Bilirubin 0.6 D AST 8 L ALT 14 D Alkaline Phosphatase 46 Total Protein 6.7 Albumin 3.1 L 12/19/16 05:45 WBC RBC Hgb Hct MCV MCH MCHC RDW Plt Count MPV Neutrophils % Lymphocytes % Monocytes % Eosinophils % Basophils % Sodium Potassium Chloride Carbon Dioxide Anion Gap BUN Creatinine Creat Clearance w eGFR Random Glucose Lactic Acid 0.5 Calcium Phosphorus Magnesium Total Bilirubin AST ALT Alkaline Phosphatase Total Protein Albumin ASSESSMENT AND PLAN: Bowel Perforation Intra-Abdominal Collection/Abscess Mental Retardation Functional Quadriplegia - ABX coverage - f/u cultures - IVF - replete lytes - surgery f/u - aspiration precautions - DVT prophylaxis - Aspiration precautions Dr Irwin critical care time spent in reviewing chart, evaluating patient and formulating plan 35 min
[2016-12-19 15:54] LABS: ANION GAP 9 (8-16); CALCIUM 8.7 mg/dL (8.5-10.1); CO2 31 mmol/L (21-32); CREATININE 0.3 mg/dL (0.7-1.3); GLUCOSE,RANDOM 87 mg/dL (74-106)
--- NOTE | 2016-12-19 16:25 | PN ---
Physical Exam: SUBJECTIVE: Patient seen and examined by me at bedside. Overnight events noted. Patient was sent for IR drainage of bowel abscess. No complications and patient remains stable with no complaints. OBJECTIVE: Vital Signs Period Temp Pulse Resp BP Sys/Bruce Pulse Ox Last 24 Hr 97.8 F-98.9 F 88-112 12-54 108-145/66-97 98-100 GENERAL: The patient is awake, alert and nonverbal (baseline) LUNGS: Bilateral Rhonchi's throughout lung bases. No accessory muscle use. HEART: Tachycardia and regular rhythm, normal S1 and S2 ABDOMEN: Jtube with serous drainage and extero-cutaneous fistula in the LLQ draining seous fluid. Soft, nontender, nondistended, normoactive bowel sounds, no guarding, no rebound tenderness EXTREMITIES: Right groin central line C/D/I, Contracted upper and lower extremities of bilateral hands and feet. No edema. NEUROLOGICAL: Severe MR. Unable to walk or speak. Laboratory Results - last 24 hr 12/18/16 12/19/16 12/19/16 20:00 05:45 05:45 WBC 6.7 D RBC 3.46 L Hgb 8.3 L D Hct 26.0 L D MCV 75.3 L MCH 24.1 L MCHC 32.0 RDW 15.9 Plt Count 232 D MPV 7.1 L Neutrophils % 62.4 D Lymphocytes % 22.4 D Monocytes % 8.6 Eosinophils % 5.3 H D Basophils % 1.3 D Sodium 145 Potassium 3.0 L 4.0 D Chloride 107 D Carbon Dioxide 33 H Anion Gap 5 L BUN 22 H D Creatinine 0.5 L Creat Clearance w eGFR > 60 Random Glucose 89 Lactic Acid Calcium 8.6 Phosphorus 2.2 L D Magnesium 2.3 Total Bilirubin 0.6 D AST 8 L ALT 14 D Alkaline Phosphatase 46 Total Protein 6.7 Albumin 3.1 L 12/19/16 12/19/16 12/19/16 05:45 15:00 15:00 WBC RBC Hgb Hct MCV MCH MCHC RDW Plt Count MPV Neutrophils % Lymphocytes % Monocytes % Eosinophils % Basophils % Sodium 147 H Potassium Cancelled 3.9 Chloride 107 Carbon Dioxide 31 Anion Gap 9 BUN 20 H Creatinine 0.3 L D Creat Clearance w eGFR Random Glucose 87 Lactic Acid 0.5 Calcium 8.7 Phosphorus Magnesium Total Bilirubin AST ALT Alkaline Phosphatase Total Protein Albumin Active Medications Generic Name Dose Route Start Last Admin Trade Name Freq PRN Reason Stop Dose Admin Heparin Sodium (Porcine) 5,000 unit 12/17/16 22:00 12/19/16 06:03 Heparin - SQ 5,000 unit TID TOSIN Administration Dextrose/Sodium Chloride 1,000 mls @ 42 mls/hr 12/19/16 12:15 D5-1/2ns - IV ASDIR TOSIN Levetiracetam 500 mg 12/17/16 18:30 12/19/16 06:03 Keppra Injection - IVPB 500 mg Q12H TOSIN Administration Lorazepam 1 mg 12/17/16 18:28 Ativan Injection - IVPUSH Q6H PRN seizures Piperacillin Sod/Tazobactam Sod 3.375 gm 12/18/16 02:00 12/19/16 10:42 Zosyn 3.375gm Ivpb (Pre-Docked) IVPB 3.375 gm Q8H-IV TOSIN Administration Protocol Sodium Chloride 1,000 ml 12/17/16 20:33 Normal Saline - IV Q20M PRN MAP<65mm Hg OR SBP <90 ASSESSMENT/PLAN: Patient is a 36 year old male from [facility] with a PMHx of congenital quadriplegia, general convulsive epilepsy, MR and nonverbal at baseline, who presented with sepsis secondayr to bowel perforation. GI #Sepsis secondary to Bowel Perforation -Continue Zosyn 3.375mg Q8H, Flagyl discontinued today -Leukocytosis resolved -IR procedure attempted last night for drainage of bowel abscess. Will attempt again this afternoon -Cultures NGTD -Continue to monitor Vitals -Continue D5-1/2NS @42mls/hr Neurology #Generalized Convulside Epilepsy -Continue Keppra 500mg IV BID -Continue Ativan 1mg IV Q6H PRN Cardiology #HTN -BP controlled and stable -Continue Labetolol PRN -Will hold Atenolol for now as BP is borderline F/E/N -D5-1/2NS@42cc/hr for 24 hours -Hypophosphatemia replete with phos 15mm IV -NPO Prophylaxis -Heparin 5000 units SQ for DVT -No GI needed Disposition -Deconditioning : PT -Full code -Transfer to med/surg Visit type - Emergency Visit Emergency Visit: Yes ED Registration Date: 12/17/16 Care time: The patient presented to the Emergency Department on the above date and was hospitalized for further evaluation of their emergent condition. - New Patient This patient is new to me today: Yes Date on this admission: 12/19/16 - Critical Care Critical Care patient: Yes Total Critical Care Time (in minutes): 45 Critical Care Statement: The care of this patient involved high complexity decision making to prevent further life threatening deterioration of the patient 's condition and/or to evaluate & treat vital organ system(s) failure or risk of failure.
[2016-12-19] MEDS ORDERED: LORazepam 2 MG/ML SDV VIAL ONE (19:13)
[2016-12-19] MEDS: SODIUM CHLORIDE 0.9%/KCL 1,000 ML IV SCH (19:43)
[2016-12-19] MEDS: ACETAMINOPHEN 1000 MG/100 ML VIAL (NON FORMULARY) IVPB PRN (20:20)
[2016-12-20] MEDS: PIPERACILLIN/TAZOB 3.375 GM/50 ML PRE-DOCKED IVPB SCH ×3 (01:22→18:23)
[2016-12-20] MEDS: ACETAMINOPHEN 1000 MG/100 ML VIAL (NON FORMULARY) IVPB PRN (02:20)
[2016-12-20] MEDS: HEPARIN NA (PORCINE) 5,000 UNITS/ML 1ML VIAL SQ SCH ×3 (05:13→22:38)
[2016-12-20] MEDS: levETIRAcetam 500 MG/5 ML INJECTION VIAL IVPB SCH ×2 (05:35→18:23)
[2016-12-20 05:56] LABS: BASOPHIL 0.9 % (0-2.0); EOSINOPHIL 6.2 % (0-4.5); MCH 24.7 pg (25.7-33.7); MCHC 33.1 g/dl (32.0-35.9); MEAN CELL VOLUME 74.6 fl (80-96); MEAN PLT VOLUME 6.9 fl (7.5-11.1); NEUTROPHILS 59.4 % (42.8-82.8); PLATELET COUNT 258 K/MM3 (134-434); RDW 15.8 % (11.9-15.9)
[2016-12-20 06:16] LABS: ALBUMIN 3.2 g/dl (3.4-5.0); ANION GAP 8 (8-16); CALCIUM 8.7 mg/dL (8.5-10.1); CO2 31 mmol/L (21-32); GLUCOSE,RANDOM 90 mg/dL (74-106)
[2016-12-20 06:21] LABS: ALK PHOS 45 U/L (45-117); BILIRUBIN,TOTAL 0.5 mg/dL (0.2-1.0); CREATININE 0.2 mg/dL (0.7-1.3); PHOSPHOROUS 2.3 mg/dL (2.5-4.9); SGOT/AST 6 U/L (15-37); SGPT/ALT 13 U/L (12-78); TOT PROT 6.5 g/dl (6.4-8.2)
--- NOTE | 2016-12-20 07:18 | PN ---
Progress Note, Physician Chief Complaint: ID Zosyn continues day 4 intrabdominal coverage Remains afebrile NAD WBC normal - Current Medication List Current Medications: Active Medications Acetaminophen (Ofirmev Injection -) 600 mg IVPB Q6H PRN PRN Reason: FEVER OR PAIN Stop: 12/20/16 13:15 Last Admin: 12/20/16 02:20 Dose: 600 mg Heparin Sodium (Porcine) (Heparin -) 5,000 unit SQ TID TOSIN Last Admin: 12/20/16 05:13 Dose: 5,000 unit Dextrose/Sodium Chloride (D5-1/2ns -) 1,000 mls @ 42 mls/hr IV ASDIR TOISN Last Admin: 12/19/16 13:00 Dose: 42 mls/hr Levetiracetam (Keppra Injection -) 500 mg IVPB Q12H TOSIN Last Admin: 12/20/16 05:35 Dose: 500 mg Lorazepam (Ativan Injection -) 1 mg IVPUSH Q6H PRN PRN Reason: seizures Last Admin: 12/19/16 20:20 Dose: 1 mg Piperacillin Sod/Tazobactam Sod (Zosyn 3.375gm Ivpb (Pre-Docked)) 3.375 gm IVPB Q8H-IV TOSIN PRN Reason: Protocol Last Admin: 12/20/16 01:22 Dose: 3.375 gm Sodium Chloride (Normal Saline -) 1,000 ml IV Q20M PRN PRN Reason: MAP<65mm Hg OR SBP <90 - Objective Vital Signs: Vital Signs Temperature 98.6 F 12/20/16 06:00 Pulse Rate 98 H 12/20/16 06:00 Respiratory Rate 25 H 12/20/16 06:00 Blood Pressure 138/92 12/20/16 06:00 O2 Sat by Pulse Oximetry (%) 98 12/19/16 21:00 Constitutional: Yes: No Distress Cardiovascular: Yes: S1, S2 Respiratory: Yes: WNL, Regular, CTA Bilaterally Gastrointestinal: Yes: Soft, Other (G and J tube) Edema: No Labs: CBC, BMP 12/20/16 05:10 12/20/16 05:10 INR, PTT INR 1.15 (0.82-1.09) H 12/16/16 22:44 Assessment/Plan Microbiology 12/17/16 05:20 Abdomen Gram Stain - Final 12/17/16 05:20 Abdomen Wound Culture - Final NO GROWTH AFTER 48 HOURS INCUBATION 12/16/16 23:00 Urine - Urine - Catheterized Urine Culture - Final NO GROWTH OBTAINED 06/18/13 22:00 Blood - Peripheral Venous Blood Culture - Final NO GROWTH AFTER 5 DAYS INCUBATION 06/18/13 21:45 Blood - Peripheral Venous Blood Culture - Final NO GROWTH AFTER 5 DAYS INCUBATION 12/17/16 05:49 Blood - Peripheral Venous Blood Culture - Preliminary NO GROWTH OBTAINED AFTER 72 HOURS, INCUBATION TO CONTINUE FOR 2 DAYS. 12/17/16 05:49 Blood - Peripheral Venous Blood Culture - Preliminary NO GROWTH OBTAINED AFTER 72 HOURS, INCUBATION TO CONTINUE FOR 2 DAYS. Laboratory Tests 12/20/16 12/20/16 05:10 05:10 WBC 7.0 RBC 3.34 L Hct 24.9 L Plt Count 258 BUN 13 D Creatinine 0.2 L D Creat Clearance w eGFR > 60 Assessment The issue being ? of perforation apparently not yet clarified by multiple imaging CTs Plan Continue antibiotic few more days Advance feeding per surgery IV Clinimix Юлия JENKINS
--- NOTE | 2016-12-20 09:03 | PN ---
Progress Note (short form) - Note Progress Note: PULM/CCM SUBJECTIVE: Patient seen and examined in the ICU. -stable overnight -repeat imaging still unclear for perf/extravasation of contrast, Surg pursing further image Active Medications Acetaminophen (Ofirmev Injection -) 600 mg IVPB Q6H PRN PRN Reason: FEVER OR PAIN Stop: 12/20/16 13:15 Last Admin: 12/20/16 02:20 Dose: 600 mg Heparin Sodium (Porcine) (Heparin -) 5,000 unit SQ TID TOSIN Last Admin: 12/20/16 05:13 Dose: 5,000 unit Dextrose/Sodium Chloride (D5-1/2ns -) 1,000 mls @ 42 mls/hr IV ASDIR TOSIN Last Admin: 12/19/16 13:00 Dose: 42 mls/hr Levetiracetam (Keppra Injection -) 500 mg IVPB Q12H TOSIN Last Admin: 12/20/16 05:35 Dose: 500 mg Lorazepam (Ativan Injection -) 1 mg IVPUSH Q6H PRN PRN Reason: seizures Last Admin: 12/19/16 20:20 Dose: 1 mg Piperacillin Sod/Tazobactam Sod (Zosyn 3.375gm Ivpb (Pre-Docked)) 3.375 gm IVPB Q8H-IV TOSIN PRN Reason: Protocol Last Admin: 12/20/16 01:22 Dose: 3.375 gm Sodium Chloride (Normal Saline -) 1,000 ml IV Q20M PRN PRN Reason: MAP<65mm Hg OR SBP <90 Vital Signs Temp 98.6 F 12/20/16 06:00 Pulse 98 H 12/20/16 06:00 Resp 25 H 12/20/16 06:00 BP 138/92 12/20/16 06:00 Pulse Ox 98 12/19/16 21:00 Intake & Output 12/19/16 12/19/16 12/20/16 11:59 23:59 11:59 Intake Total 1950 954 Output Total 150 100 Balance 1800 854 Weight 40.3 kg 40.3 kg Intake: IV 1200 504 D5-1/2Ns - 1,000 ml @ 42 504 mls/hr IV ASDIR TOSIN Rx#: [id number] NS + 20meq kcl @100cc/hr 1200 IVPB 750 450 Output: Gastric Drainage 150 100 Other: Voiding Method Incontinent Incontinent # Unmeasured Voids Void 3 Weight Measurement Method Built in [facility] Built in [facility] Gen: NAD at rest, awake to baseline Heart: RRR Lung: decreased breath sounds at the bases Abd: soft, +enterocutaneous fistula with minimal output, PEG site with some leakage around tube,draining bile and ? old tube feed Ext: no edema, contracted CBCD WBC 7.0 K/mm3 (4.0-10.0) 12/20/16 05:10 RBC 3.34 M/mm3 (4.00-5.60) L 12/20/16 05:10 Hgb 8.2 GM/dL (11.7-16.9) L 12/20/16 05:10 Hct 24.9 % (35.4-49) L 12/20/16 05:10 MCV 74.6 fl (80-96) L 12/20/16 05:10 MCHC 33.1 g/dl (32.0-35.9) 12/20/16 05:10 RDW 15.8 % (11.9-15.9) 12/20/16 05:10 Plt Count 258 K/MM3 (134-434) 12/20/16 05:10 MPV 6.9 fl (7.5-11.1) L 12/20/16 05:10 CMP Sodium 142 mmol/L (136-145) 12/20/16 05:10 Potassium 3.7 mmol/L (3.5-5.1) 12/20/16 05:10 Chloride 103 mmol/L (98-107) 12/20/16 05:10 Carbon Dioxide 31 mmol/L (21-32) 12/20/16 05:10 Anion Gap 8 (8-16) 12/20/16 05:10 BUN 13 mg/dL (7-18) D 12/20/16 05:10 Creatinine 0.2 mg/dL (0.7-1.3) L D 12/20/16 05:10 Creat Clearance w eGFR > 60 (>60) 12/20/16 05:10 Calcium 8.7 mg/dL (8.5-10.1) 12/20/16 05:10 Total Bilirubin 0.5 mg/dL (0.2-1.0) 12/20/16 05:10 AST 6 U/L (15-37) L D 12/20/16 05:10 ALT 13 U/L (12-78) 12/20/16 05:10 Alkaline Phosphatase 45 U/L (45-117) 12/20/16 05:10 Total Protein 6.5 g/dl (6.4-8.2) 12/20/16 05:10 Albumin 3.2 g/dl (3.4-5.0) L 12/20/16 05:10 ASSESSMENT AND PLAN: ??? Bowel Perforation Intra-Abdominal Collection/Abscess Mental Retardation Functional Quadriplegia - ABX coverage, completes P/T on Thursday - f/u cultures - IVF - replete lytes as needed - surgery f/u, awaiting definitive imaging - will have to start some form of nutrition soon - DVT prophylaxis - Aspiration precautions - OK for floor if no planned OR Ganesh SHAIKH
--- NOTE | 2016-12-20 12:32 | PN ---
Physical Exam: SUBJECTIVE: Patient seen and examined. No acute issues, he is awake, no fevers, seizure activity. Event: - Taken to IR 12/19 for G/J eval under fluero, needs repeat CT - JG site with foam like output this AM OBJECTIVE: Vital Signs Period Temp Pulse Resp BP Sys/Bruce Pulse Ox Last 24 Hr 97.8 F-100.3 F 84-113 22-46 111-139/75-99 98 PE Neuro: awake, alert, non verbal Pulm: b/l rhonchi +NC CV: s1 s2 rrr no mrg Abd: J/G tube drainage thick, green/brown sludge, entero-cutaneous fistula drainage LLQ, surrounding JG site red with outer white coating Skin: R groin central line CDI, gluteal stage 3 wound Ext: upper ext contractures, no le edema Laboratory Results - last 24 hr 12/19/16 12/19/16 12/20/16 15:00 15:00 05:10 WBC 7.0 RBC 3.34 L Hgb 8.2 L Hct 24.9 L MCV 74.6 L MCH 24.7 L MCHC 33.1 RDW 15.8 Plt Count 258 MPV 6.9 L Neutrophils % 59.4 Lymphocytes % 26.4 Monocytes % 7.1 Eosinophils % 6.2 H Basophils % 0.9 Sodium 147 H Potassium Cancelled 3.9 Chloride 107 Carbon Dioxide 31 Anion Gap 9 BUN 20 H Creatinine 0.3 L D Creat Clearance w eGFR Random Glucose 87 Calcium 8.7 Phosphorus Magnesium Total Bilirubin AST ALT Alkaline Phosphatase Total Protein Albumin 12/20/16 12/20/16 05:10 10:32 WBC RBC Hgb Hct MCV MCH MCHC RDW Plt Count MPV Neutrophils % Lymphocytes % Monocytes % Eosinophils % Basophils % Sodium 142 Potassium 3.7 3.3 L Chloride 103 Carbon Dioxide 31 Anion Gap 8 BUN 13 D Creatinine 0.2 L D Creat Clearance w eGFR > 60 Random Glucose 90 Calcium 8.7 Phosphorus 2.3 L Magnesium 2.0 Total Bilirubin 0.5 AST 6 L D ALT 13 Alkaline Phosphatase 45 Total Protein 6.5 Albumin 3.2 L Active Medications Generic Name Dose Route Start Last Admin Trade Name Freq PRN Reason Stop Dose Admin Acetaminophen 600 mg 12/19/16 19:14 12/20/16 02:20 Ofirmev Injection - IVPB 12/20/16 13:15 600 mg Q6H PRN Administration FEVER OR PAIN Heparin Sodium (Porcine) 5,000 unit 12/17/16 22:00 12/20/16 05:13 Heparin - SQ 5,000 unit TID TOSIN Administration Potassium Chloride 100 mls @ 100 mls/hr 12/20/16 12:30 Potassium Chloride 10 Meq Premix Ivpb - IVPB 12/20/16 13:29 Q60M TOSIN Potassium Chloride/Dextrose/Sod Cl 1,000 mls @ 42 mls/hr 12/20/16 12:30 D5-1/2ns+20 Meq Kcl - IV ASDIR TOSIN Levetiracetam 500 mg 12/17/16 18:30 12/20/16 05:35 Keppra Injection - IVPB 500 mg Q12H TOSIN Administration Lorazepam 1 mg 12/17/16 18:28 12/19/16 20:20 Ativan Injection - IVPUSH 1 mg Q6H PRN Administration seizures Piperacillin Sod/Tazobactam Sod 3.375 gm 12/18/16 02:00 12/20/16 09:28 Zosyn 3.375gm Ivpb (Pre-Docked) IVPB 3.375 gm Q8H-IV TOSIN Administration Protocol Sodium Chloride 1,000 ml 12/17/16 20:33 Normal Saline - IV Q20M PRN MAP<65mm Hg OR SBP <90 Assessment: 36 year old male [facility] resident, with congenital quadriplegia , general convulsive epilepsy, profound MR, monocular extropia, nonverbal, severe mental deficit admitted with sepsis due to bowel perforation 2/2 J tube placement. Plan: 1. Sepsis d/t bowel perforation - Continue Zosyn (day 4) - ID following 2. Small bowel perforation vs intraluminal leak vs extravasation of contrast - Imaging unable to discern perf vs extravasation of contrast - Repeat CTAP today, eval leak, with fresh ostomy bag placement 3. Nutrition - Change d5 1/2 NS w/ 20meq kcl - Following CT today, will start tube feeds or IV clinimix 4. General Convulsive epilepsy - Home Tizanidine anticonvulsant NF - Baclophen TID on hold for npo - Started Keppra 500mg BID IV - Ativan PRN 5. HTN - BP stable/HR controlled - Dose PRN labteolol as needed - Hold PO Atenolol 6. Hypophosphatemia - Replete phos 15mm iv x1 7. Hypokalemia - Replete with IVF + x1 10meq rider Visit type - Emergency Visit Emergency Visit: Yes ED Registration Date: 12/17/16 Care time: The patient presented to the Emergency Department on the above date and was hospitalized for further evaluation of their emergent condition. - New Patient This patient is new to me today: No - Critical Care Critical Care patient: No
[2016-12-20] MEDS: D5-1/2NS+20 MEQ KCL - 1,000 ML IV SCH (13:00)
[2016-12-20] MEDS ORDERED: POTASSIUM PHOSPHATE 15 MM in SODIUM CHLORIDE 250 ML IVPB ONE (13:00)
[2016-12-20] MEDS ORDERED: KCL 10 MEQ IVPB 100 ML IVPB SCH (13:00)
[2016-12-20] MEDS ORDERED: PT OWN MED DRAWER 7, Y5N ONE ×2 (16:41→20:23)
[2016-12-20] MEDS: AMINO ACIDS 4.25%/D5W 1,000 ML IV SCH (18:25)
[2016-12-21] MEDS: PIPERACILLIN/TAZOB 3.375 GM/50 ML PRE-DOCKED IVPB SCH ×3 (01:02→18:16)
[2016-12-21] MEDS: levETIRAcetam 500 MG/5 ML INJECTION VIAL IVPB SCH ×2 (06:14→18:21)
[2016-12-21] MEDS: HEPARIN NA (PORCINE) 5,000 UNITS/ML 1ML VIAL SQ SCH ×3 (06:15→22:04)
[2016-12-21 06:16] LABS: MCH 24.3 pg (25.7-33.7); MCHC 32.8 g/dl (32.0-35.9); PLATELET COUNT 244 K/MM3 (134-434); RDW 15.9 % (11.9-15.9); WHITE BLOOD COUNT 5.4 K/mm3 (4.0-10.0)
[2016-12-21 06:57] LABS: ANION GAP 4 (8-16); CALCIUM 8.8 mg/dL (8.5-10.1); CO2 33 mmol/L (21-32); GLUCOSE,RANDOM 119 mg/dL (74-106); MAGNESIUM 1.7 mg/dL (1.8-2.4)
[2016-12-21 06:58] LABS: CREATININE 0.3 mg/dL (0.7-1.3); PHOSPHOROUS 2.7 mg/dL (2.5-4.9)
--- NOTE | 2016-12-21 08:13 | PN ---
Progress Note, Physician Chief Complaint: ID Zosyn day [address] shows no definate collection/ perforation - Current Medication List Current Medications: Active Medications Heparin Sodium (Porcine) (Heparin -) 5,000 unit SQ TID [facility] Last Admin: 12/21/16 06:15 Dose: 5,000 unit Potassium Chloride/Dextrose/Sod Cl (D5-1/2ns+20 Meq Kcl -) 1,000 mls @ 42 mls/ hr IV ASDIR [facility] Last Admin: 12/20/16 13:00 Dose: 42 mls/hr Amino Acids (Clinimix -) 1,000 mls @ 42 mls/hr IV Q24H [facility] Last Admin: 12/20/16 18:25 Dose: 42 mls/hr Levetiracetam (Keppra Injection -) 500 mg IVPB Q12H [facility] Last Admin: 12/21/16 06:14 Dose: 500 mg Piperacillin Sod/Tazobactam Sod (Zosyn 3.375gm Ivpb (Pre-Docked)) 3.375 gm IVPB Q8H-IV TOSIN PRN Reason: Protocol Last Admin: 12/21/16 01:02 Dose: 3.375 gm Sodium Chloride (Normal Saline -) 1,000 ml IV Q20M PRN PRN Reason: MAP<65mm Hg OR SBP <90 - Objective Vital Signs: Vital Signs Temperature 98 F 12/21/16 06:00 Pulse Rate 98 H 12/21/16 06:00 Respiratory Rate 30 H 12/21/16 06:00 Blood Pressure 153/97 12/21/16 06:00 O2 Sat by Pulse Oximetry (%) 100 12/21/16 06:00 Constitutional: Yes: No Distress Neck: Yes: WNL, Supple Cardiovascular: Yes: Regular Rate and Rhythm, S1, S2 Respiratory: Yes: WNL, Regular, CTA Bilaterally Gastrointestinal: Yes: Soft, Other (Drainage around tube) Labs: CBC, BMP 12/21/16 05:15 12/21/16 05:15 INR, PTT INR 1.15 (0.82-1.09) H 12/16/16 22:44 Assessment/Plan Microbiology 12/17/16 05:20 Abdomen Gram Stain - Final 12/17/16 05:20 Abdomen Wound Culture - Final NO GROWTH AFTER 48 HOURS INCUBATION 12/16/16 23:00 Urine - Urine - Catheterized Urine Culture - Final NO GROWTH OBTAINED 12/17/16 05:49 Blood - Peripheral Venous Blood Culture - Preliminary NO GROWTH OBTAINED AFTER 96 HOURS, INCUBATION TO CONTINUE FOR 1 DAYS. 12/17/16 05:49 Blood - Peripheral Venous Blood Culture - Preliminary NO GROWTH OBTAINED AFTER 96 HOURS, INCUBATION TO CONTINUE FOR 1 DAYS. Laboratory Tests 12/21/16 12/21/16 05:15 05:15 WBC 5.4 Hgb 8.3 L Hct 25.4 L Plt Count 244 BUN 13 Creatinine 0.3 L D Assessment At this point no clear evidence for abscess infection Plan Stable for floor transfer Can stop antibiotic tomorrow VREF screen Surgery follow up re feeding him Юлия JENKINS
--- NOTE | 2016-12-21 11:01 | PN ---
Physical Exam: SUBJECTIVE: Patient seen and examined. No acute issues overnight. Events: - b/l EJ placed R: 18guage L: 20guage OBJECTIVE: Vital Signs Period Temp Pulse Resp BP Sys/Bruce Pulse Ox Last 24 Hr 98 F-99.1 F 75-103 26-46 124-157/81-109 100-100 PE Neuro: awake, alert, non verbal HEENT: b/l EJ' s Pulm: b/l rhonchi + wet cough +NC CV: s1 s2 rrr no mrg Abd: J/G tube: green output, entero-cutaneous fistula drainage LLQ, surrounding JG site red stoma Ext: upper ext contractures, no le edema Laboratory Results - last 24 hr 12/20/16 12/21/16 12/21/16 10:32 05:15 05:15 WBC 5.4 RBC 3.43 L Hgb 8.3 L Hct 25.4 L MCV 74.0 L MCH 24.3 L MCHC 32.8 RDW 15.9 Plt Count 244 MPV 7.0 L Sodium 141 Potassium 3.3 L 3.6 Chloride 104 Carbon Dioxide 33 H Anion Gap 4 L BUN 13 Creatinine 0.3 L D Random Glucose 119 H D Calcium 8.8 Phosphorus 2.7 Magnesium 1.7 L Active Medications Generic Name Dose Route Start Last Admin Trade Name Mikeq PRN Reason Stop Dose Admin Heparin Sodium (Porcine) 5,000 unit 12/17/16 22:00 12/21/16 06:15 Heparin - SQ 5,000 unit TID TOSIN Administration Potassium Chloride/Dextrose/Sod Cl 1,000 mls @ 42 mls/hr 12/20/16 12:30 13:00 D5-1/2ns+20 Meq Kcl - IV 42 mls/hr ASDIR TOSIN Administration Amino Acids 1,000 mls @ 42 mls/hr 12/20/16 17:45 12/20/16 18:25 Clinimix - IV 42 mls/hr Q24H TOSIN Administration Levetiracetam 500 mg 12/17/16 18:30 12/21/16 06:14 Keppra Injection - IVPB 500 mg Q12H TOSIN Administration Piperacillin Sod/Tazobactam Sod 3.375 gm 12/18/16 02:00 12/21/16 01:02 Zosyn 3.375gm Ivpb (Pre-Docked) IVPB 3.375 gm Q8H-IV TOSIN Administration Protocol Sodium Chloride 1,000 ml 12/17/16 20:33 Normal Saline - IV Q20M PRN MAP<65mm Hg OR SBP <90 Assessment: 36 [facility] old male [facility] resident, with congenital quadriplegia , general convulsive epilepsy, profound MR, monocular extropia, nonverbal, severe mental deficit admitted with sepsis due to bowel perforation 2/2 J tube placement. Plan: 1. Sepsis d/t bowel perforation - Continue Zosyn, final dose tomorrow (day 5) 2. Small bowel perforation vs intraluminal leak vs extravasation of contrast - Repeat CT shows no extravasation, retained contrast, no air - Awating surgery and GI clearance to advance feeding 3. Nutrition - D5 1/2 NS w/ 20meq kcl - Clinimix 42cc/hr 4. General Convulsive epilepsy - Home Tizanidine anticonvulsant NF - Baclophen TID on hold for npo - Started Keppra 500mg BID IV - Ativan PRN 5. HTN - BP labile, however stable - Dose PRN labteolol as needed - Hold PO Atenolol 6. Hypomagnesemia - Replete Mg 1gm x1 8. Hypophosphatemia - Resolved 9. Hypokalemia - Resolved Visit type - Emergency Visit Emergency Visit: Yes ED Registration Date: 12/17/16 Care time: The patient presented to the Emergency Department on the above date and was hospitalized for further evaluation of their emergent condition. - New Patient This patient is new to me today: No - Critical Care Critical Care patient: No
--- NOTE | 2016-12-21 11:36 | HOSP ---
Physical Examination Vital Signs: Vital Signs Temperature 98 F 12/21/16 06:00 Pulse Rate 103 H 12/21/16 08:00 Respiratory Rate 26 H 12/21/16 08:00 Blood Pressure 153/97 12/21/16 06:00 O2 Sat by Pulse Oximetry (%) 100 12/21/16 06:00 Labs: CBC, BMP 12/21/16 05:15 12/21/16 05:15 Hospitalist Encounter Assessment: R femoral central line removed, pressure applied for 5 mins, no bleeding noted, pressure dressing placed PT remains in stable condition
[2016-12-21] MEDS ORDERED: MAGNESIUM SULF 50% (8.12 MEQ/2 ML-1 GM VIAL) IVPB ONE (12:00)
--- NOTE | 2016-12-21 12:17 | PN ---
Progress Note (short form) - Note Progress Note: PULM / CCM Pt seen & examined in the ICU. NAD. PEG tube to gravity w/ green bilious foamy drainage. MED REVIEW Generic Name Dose Route Start Last Admin Trade Name Jeferson PRN Reason Stop Dose Admin Heparin Sodium (Porcine) 5,000 unit 12/17/16 22:00 12/21/16 06:15 Heparin - SQ 5,000 unit TID TOSIN Administration Potassium Chloride/Dextrose/Sod Cl 1,000 mls @ 42 mls/hr 12/20/16 12:30 13:00 D5-1/2ns+20 Meq Kcl - IV 42 mls/hr ASDIR TOSIN Administration Amino Acids 1,000 mls @ 42 mls/hr 12/20/16 17:45 12/20/16 18:25 Clinimix - IV 42 mls/hr Q24H TOSIN Administration Levetiracetam 500 mg 12/17/16 18:30 12/21/16 06:14 Keppra Injection - IVPB 500 mg Q12H TOSIN Administration Piperacillin Sod/Tazobactam Sod 3.375 gm 12/18/16 02:00 12/21/16 01:02 Zosyn 3.375gm Ivpb (Pre-Docked) IVPB 3.375 gm Q8H-IV TOSIN Administration Protocol Sodium Chloride 1,000 ml 12/17/16 20:33 Normal Saline - IV Q20M PRN MAP<65mm Hg OR SBP <90 EXAM: V/S Temp 98 F 12/21/16 06:00 Pulse 88 12/21/16 12:00 Resp 32 H 12/21/16 12:00 BP 140/85 12/21/16 12:00 Pulse Ox 100 12/21/16 06:00 I's & O's 12/20/16 12/21/16 12/21/16 23:59 11:59 23:59 Intake Total 1164 801 Output Total 200 200 Balance 964 601 Weight 39.7 kg Intake: IV 714 651 D5-1/2Ns+20 Meq KCl - 1, 588 315 000 ml @ 42 mls/hr IV ASDIR TOSIN Rx#:[id number] clinimix 126 336 IVPB 450 150 Output: Gastric Drainage 200 200 Other: Voiding Method Diaper Incontinent # Unmeasured Voids Void 1 3 Bowel Movement Yes: large, liquid, dark brown # Bowel Movements 1 Weight Measurement Method [facility]: 36 y/o man, C & A, contracted, in bed, NAD HEENT: PERRL, an-icteric, NC, O-P Clear PULM: coarse w/ wet cough CV: nml S1, S2, RR, unable to appreciate any G/M/R ABD: J/G tube w/ green output, LLQ EC fistula drainage, surrounding JG site red stoma EXT: gross UE contractures, + pulses, WWP X4, (-) edema SKIN: No obvious rashes, lesions or ulcers BACK: C/D/I NEURO: Non-verbal MR but C & A, functional quadriplegia DATA: CBC, BMP 12/21/16 05:15 12/21/16 05:15 Microbiology 12/20/16 10:35 Rectal Swab VRE Culture - Preliminary Pending Organism 12/17/16 05:49 Blood - Peripheral Venous Blood Culture - Preliminary NO GROWTH OBTAINED AFTER 96 HOURS, INCUBATION TO CONTINUE FOR 1 DAYS. 12/17/16 05:49 Blood - Peripheral Venous Blood Culture - Preliminary NO GROWTH OBTAINED AFTER 96 HOURS, INCUBATION TO CONTINUE FOR 1 DAYS. 12/17/16 05:20 Abdomen Gram Stain - Final 12/17/16 05:20 Abdomen Wound Culture - Final NO GROWTH AFTER 48 HOURS INCUBATION 12/16/16 23:00 Urine - Urine - Catheterized Urine Culture - Final NO GROWTH OBTAINED RECENT STUDIES TO NOTE: CXR 12/18: Clear (My Read) CTAP 12/17/2016: PEG tube within the body of the stomach which has been advanced through the duodenem into the proximal jejunal loop. Apparent perforation of the jejunal loop by the tube with pooling of tube feeding within the anterior pelvis. Additional fluid in the perirectal space. ASSESS: ??? Bowel Perf w/ nebulous imaging Possible Intra-Abd Collection/Abscess MR Functional Quadriplegia PLAN: - Supp Fio2 prn for an SpO2 > 92% - Aspiration precautions - ABX coverage, completes P/T tomorrow (Thursday) - f/u cultures - IVF - replete e-lytes as needed - D/c groin TLC - Start IV Nutrient - DVT prophylaxis - No imminent surgery planned - OK for floor [facility] ICU 4436 PULM / CCM Problem List - Problems (1) Perforated small intestine Code(s): K63.1 - PERFORATION OF INTESTINE (NONTRAUMATIC)
[2016-12-21] MEDS ORDERED: MAGNESIUM SULF 50% (8.12 MEQ/2 ML-1 GM VIAL) ONE (14:31)
[2016-12-21] MEDS: D5-1/2NS+20 MEQ KCL - 1,000 ML IV SCH (14:38)
[2016-12-21] MEDS ORDERED: PT OWN MED DRAWER 7, Y5N ONE (18:07)
[2016-12-21] MEDS: AMINO ACIDS 4.25%/D5W 1,000 ML IV SCH (18:16)
--- NOTE | 2016-12-21 21:38 | PN ---
Progress Note (short form) - Note Progress Note: Attending Surgeon Noncommunicative VSS AF abdomen-soft; no evidence of an acute surgical abdomen; no output from fidtula site; GG tube draining bile; o/w negative. WBC-wnl IMP: stable PLAN: Imaging studies to date reviewed; trial of feeding tomorrow. Abdulkadir Ralph MD FACS
[2016-12-22] MEDS ORDERED: PIPERACILLIN/TAZOBACTAM 3.375 GM VIAL IVPB ONE ×2 (02:01→10:25)
[2016-12-22] MEDS ORDERED: DEXTROSE 5%-WATER - 50 ML IVPB ONE ×2 (02:02→10:25)
[2016-12-22] MEDS: PIPERACILLIN/TAZOB 3.375 GM 3.375 GM in DEXTROSE 5%-WATER - 50 ML IVPB SCH ×2 (02:10→10:32)
[2016-12-22] MEDS: HEPARIN NA (PORCINE) 5,000 UNITS/ML 1ML VIAL SQ SCH ×3 (06:04→22:02)
[2016-12-22] MEDS: levETIRAcetam 500 MG/5 ML INJECTION VIAL IVPB SCH ×2 (06:04→17:33)
[2016-12-22] MEDS ORDERED: SODIUM CHLORIDE 0.9% 1000 ML INFUS.BAG IV PRN (07:19)
[2016-12-22 08:07] LABS: MCH 23.8 pg (25.7-33.7); MCHC 32.4 g/dl (32.0-35.9); MEAN CELL VOLUME 73.4 fl (80-96); MEAN PLT VOLUME 6.6 fl (7.5-11.1); NEUTROPHILS 55.8 % (42.8-82.8); PLATELET COUNT 207 K/MM3 (134-434); RDW 15.6 % (11.9-15.9); WHITE BLOOD COUNT 4.4 K/mm3 (4.0-10.0)
[2016-12-22 08:33] LABS: ALBUMIN 2.9 g/dl (3.4-5.0); ALK PHOS 42 U/L (45-117); ANION GAP 3 (8-16); BILIRUBIN,TOTAL 0.4 mg/dL (0.2-1.0); CALCIUM 8.3 mg/dL (8.5-10.1); CO2 31 mmol/L (21-32); CREATININE 0.2 mg/dL (0.7-1.3); GLUCOSE,RANDOM 105 mg/dL (74-106); MAGNESIUM 1.5 mg/dL (1.8-2.4); SGOT/AST 7 U/L (15-37); SGPT/ALT 12 U/L (12-78); TOT PROT 6.7 g/dl (6.4-8.2)
[2016-12-22] MEDS: D5-1/2NS+20 MEQ KCL - 1,000 ML IV SCH ×2 (10:33→13:20)
--- NOTE | 2016-12-22 13:17 | PN ---
Progress Note, Physician History of Present Illness: Awake. No acute distress Afebrile WBC WNL - Current Medication List Current Medications: Active Medications Heparin Sodium (Porcine) (Heparin -) 5,000 unit SQ TID TOSIN Potassium Chloride/Dextrose/Sod Cl (D5-1/2ns+20 Meq Kcl -) 1,000 mls @ 42 mls/ hr IV ASDIR TOSIN Last Admin: 12/22/16 10:33 Dose: 42 mls/hr Amino Acids (Clinimix -) 1,000 mls @ 42 mls/hr IV Q24H TOSIN Last Admin: 12/21/16 18:16 Dose: Not Given Piperacillin Sod/Tazobactam (Sod 3.375 gm/ Dextrose) 50 mls @ 100 mls/hr IVPB Q8H-IV TOSIN Last Admin: 12/22/16 10:32 Dose: 100 mls/hr Levetiracetam (Keppra Injection -) 500 mg IVPB BID@0600,1800 TOSIN Sodium Chloride (Normal Saline -) 1,000 ml IV Q20M PRN PRN Reason: MAP<65mm Hg OR SBP <90 - Objective Vital Signs: Vital Signs Temperature 97.5 F L 12/22/16 06:00 Pulse Rate 83 12/22/16 10:21 Respiratory Rate 24 12/22/16 06:00 Blood Pressure 141/95 12/22/16 06:00 O2 Sat by Pulse Oximetry (%) 97 12/22/16 10:21 Constitutional: Yes: No Distress Eyes: Yes: Conjunctiva Clear Cardiovascular: Yes: Regular Rate and Rhythm, S1, S2 Respiratory: Yes: Diminished Gastrointestinal: Yes: Normal Bowel Sounds, Soft. No: Tenderness Labs: CBC, BMP 12/22/16 07:45 12/22/16 07:45 INR, PTT INR 1.15 (0.82-1.09) H 12/16/16 22:44 Assessment/Plan Fever/ leukocytosis resolved Developmental delay Off antibiotics Observe
[2016-12-22] MEDS: AMINO ACIDS 4.25%/D5W 1,000 ML IV SCH ×2 (14:01→17:55)
--- NOTE | 2016-12-22 14:13 | PN ---
Physical Exam: SUBJECTIVE: Patient seen and examined. He appears calm, smiling, no issues reported OBJECTIVE: Vital Signs Period Temp Pulse Resp BP Sys/Bruce Pulse Ox Last 24 Hr 97.2 F-98.1 F 80-93 22-28 138-155/92-99 97-99 PE Neuro: awake, alert, non verbal HEENT: b/l EJ' s cdi Pulm: b/l rhonchi, +NC CV: s1 s2 rrr no mrg Abd: J/G tube: green output, entero-cutaneous fistula drainage LLQ, surrounding JG site red stoma Ext: upper ext contractures, no le edema Laboratory Results - last 24 hr 12/22/16 12/22/16 07:45 07:45 WBC 4.4 RBC 3.58 L Hgb 8.5 L Hct 26.3 L MCV 73.4 L MCH 23.8 L MCHC 32.4 RDW 15.6 Plt Count 207 MPV 6.6 L Neutrophils % 55.8 Lymphocytes % 27.8 Monocytes % 7.4 Eosinophils % 8.0 H Basophils % 1.0 Sodium 135 L Potassium 3.4 L Chloride 101 Carbon Dioxide 31 Anion Gap 3 L BUN 12 Creatinine 0.2 L D Creat Clearance w eGFR > 60 Random Glucose 105 Calcium 8.3 L Magnesium 1.5 L Total Bilirubin 0.4 AST 7 L ALT 12 Alkaline Phosphatase 42 L Total Protein 6.7 Albumin 2.9 L Active Medications Generic Name Dose Route Start Last Admin Trade Name Freq PRN Reason Stop Dose Admin Heparin Sodium (Porcine) 5,000 unit 12/22/16 14:00 12/22/16 13:20 Heparin - SQ 5,000 unit TID TOSIN Administration Potassium Chloride/Dextrose/Sod Cl 1,000 mls @ 42 mls/hr 12/20/16 12:30 13:20 D5-1/2ns+20 Meq Kcl - IV Not Given ASDIR TOSIN Amino Acids 1,000 mls @ 42 mls/hr 12/20/16 17:45 12/22/16 14:01 Clinimix - IV 42 mls/hr Q24H TOSIN Administration Piperacillin Sod/Tazobactam 50 mls @ 100 mls/hr 12/22/16 02:00 12/22/16 10:32 Sod 3.375 gm/ Dextrose IVPB 100 mls/hr Q8H-IV TOSIN Administration Levetiracetam 500 mg 12/22/16 18:00 Keppra Injection - IVPB BID@0600,1800 TOSIN Sodium Chloride 1,000 ml 12/22/16 07:19 Normal Saline - IV Q20M PRN MAP<65mm Hg OR SBP <90 Assessment: 36 year old male [facility] resident, with congenital quadriplegia , general convulsive epilepsy, profound MR, monocular extropia, nonverbal, severe mental deficit admitted with sepsis due to bowel perforation 2/2 J tube placement. Plan: 1. Sepsis d/t bowel perforation - Completes Zosyn today day 6 2. Small bowel perforation vs intraluminal leak vs extravasation of contrast - No obstruction or perf seen - Can resume feeds per surgery 3. Nutrition - Resume feeds, Vital 1.2, start slow 10cc 4. General Convulsive epilepsy - Home Tizanidine anticonvulsant NF - Baclophen TID on hold for npo - Started Keppra 500mg BID IV - Ativan PRN 5. HTN - Resumed atenolol 25mg daily 6. Hypomagnesemia - Replete Mg 2gm x1 7. Hypokalemia - Stop IVF w/ kcl - Will give po k+ 20meq Dispo: - Will need peer to peer at [place] when ready for discharge Visit type - Emergency Visit Emergency Visit: Yes ED Registration Date: 12/17/16 Care time: The patient presented to the Emergency Department on the above date and was hospitalized for further evaluation of their emergent condition. - New Patient This patient is new to me today: No - Critical Care Critical Care patient: No
[2016-12-22] MEDS ORDERED: MAGNESIUM SULF 50% (8.12 MEQ/2 ML-1 GM VIAL) IVPB ONE (14:17)
--- NOTE | 2016-12-22 14:19 | PN ---
Progress Note (short form) - Note Progress Note: NAD. Febrile. No documented acute events overnight. Intake & Output 12/19/16 12/20/16 12/21/16 12/22/16 23:59 23:59 23:59 23:59 Intake Total 2904 1164 1296 995 Output Total 250 200 750 Balance 2654 964 546 995 Weight 88 lb 13.541 oz 88 lb 13.541 oz 87 lb 8.376 oz 97 lb 11.2 oz Last Vital Signs Temp Pulse Resp BP Pulse Ox 97.2 F L 83 22 155/99 97 12/22/16 10:00 12/22/16 10:21 12/22/16 10:00 12/22/16 10:00 12/22/16 10:21 Active Medications Atenolol (Tenormin -) 25 mg PO DAILY [facility] Heparin Sodium (Porcine) (Heparin -) 5,000 unit SQ TID [facility] Last Admin: 12/22/16 13:20 Dose: 5,000 unit Potassium Chloride/Dextrose/Sod Cl (D5-1/2ns+20 Meq Kcl -) 1,000 mls @ 42 mls/ hr IV ASDIR [facility] Last Admin: 12/22/16 13:20 Dose: Not Given Amino Acids (Clinimix -) 1,000 mls @ 42 mls/hr IV Q24H [facility] Last Admin: 12/22/16 14:01 Dose: 42 mls/hr Piperacillin Sod/Tazobactam (Sod 3.375 gm/ Dextrose) 50 mls @ 100 mls/hr IVPB Q8H-IV [facility] Last Admin: 12/22/16 10:32 Dose: 100 mls/hr Levetiracetam (Keppra Injection -) 500 mg IVPB BID@0600,1800 [facility] Magnesium Sulfate (Magnesium Sulfate) 2 gm IVPB ONCE ONE Stop: 12/22/16 14:18 Sodium Chloride (Normal Saline -) 1,000 ml IV Q20M PRN PRN Reason: MAP<65mm Hg OR SBP <90 Gen: NAD at rest, awake Heart: RRR Lung: decreased breath sounds at the bases Abd: soft, +enterocutaneous fistula Ext: no edema, contracted Laboratory Results - last 24 hr 12/22/16 12/22/16 07:45 07:45 WBC 4.4 RBC 3.58 L Hgb 8.5 L Hct 26.3 L MCV 73.4 L MCH 23.8 L MCHC 32.4 RDW 15.6 Plt Count 207 MPV 6.6 L Neutrophils % 55.8 Lymphocytes % 27.8 Monocytes % 7.4 Eosinophils % 8.0 H Basophils % 1.0 Sodium 135 L Potassium 3.4 L Chloride 101 Carbon Dioxide 31 Anion Gap 3 L BUN 12 Creatinine 0.2 L D Creat Clearance w eGFR > 60 Random Glucose 105 Calcium 8.3 L Magnesium 1.5 L Total Bilirubin 0.4 AST 7 L ALT 12 Alkaline Phosphatase 42 L Total Protein 6.7 Albumin 2.9 L ASSESSMENT AND PLAN: Bowel Perforation Intra-Abdominal Collection/Abscess Mental Retardation Functional Quadriplegia - Off ABX coverage per ID - IVF - replete lytes - aspiration precautions - DVT prophylaxis - Aspiration precautions - Nutritional support Dr Irwin
[2016-12-22] MEDS ORDERED: POTASSIUM CHLORIDE ORAL LIQUID 20 MEQ/15 ML PO ONE (14:20)
[2016-12-22] MEDS ORDERED: ATENOLOL 25 MG TABLET (FP) PO SCH (14:30)
[2016-12-22] MEDS: ATENOLOL 25 MG TABLET (FP) GT SCH (15:54)
[2016-12-23] MEDS: levETIRAcetam 500 MG/5 ML INJECTION VIAL IVPB SCH (06:38)
[2016-12-23] MEDS: HEPARIN NA (PORCINE) 5,000 UNITS/ML 1ML VIAL SQ SCH ×3 (06:44→22:06)
[2016-12-23 07:57] LABS: ANION GAP 7 (8-16); CALCIUM 8.3 mg/dL (8.5-10.1); CO2 28 mmol/L (21-32); GLUCOSE,RANDOM 88 mg/dL (74-106)
[2016-12-23 07:59] LABS: CREATININE 0.2 mg/dL (0.7-1.3); PHOSPHOROUS 2.6 mg/dL (2.5-4.9)
[2016-12-23] MEDS ORDERED: ATENOLOL 25 MG TABLET (FP) GT SCH (10:00)
--- NOTE | 2016-12-23 10:46 | PN ---
Physical Exam: SUBJECTIVE: Patient seen and examined at bedside. OBJECTIVE: Vital Signs Period Temp Pulse Resp BP Sys/Bruce Pulse Ox Last 24 Hr 97.4 F-97.9 F 82-84 18-20 119-144/82-96 97 GENERAL/NEURO: The patient is awake. Vocalizes to physical stimuli. Nonverbal, baseline functioning. HEAD: Normal with no signs of trauma. EYES: PERRL, sclera anicteric, conjunctiva clear. No ptosis. LUNGS: Coarse breath sounds. No wheezes, no crackles, no accessory muscle use. HEART: Regular rate and rhythm, S1, S2 without murmur, rub or gallop. ABDOMEN: J-G tube; tube feeds running; J tube draining clear light green fluid EXTREMITIES: contracted; 2+ pulses, warm, well-perfused, no edema. Laboratory Results - last 24 hr 12/23/16 06:30 Sodium 134 L Potassium 3.7 Chloride 99 Carbon Dioxide 28 Anion Gap 7 L BUN 11 Creatinine 0.2 L Random Glucose 88 Calcium 8.3 L Phosphorus 2.6 Magnesium 2.0 D Active Medications Generic Name Dose Route Start Last Admin Trade Name Freq PRN Reason Stop Dose Admin Atenolol 25 mg 12/22/16 15:30 12/22/16 15:54 Tenormin - GT 25 mg DAILY TOSIN Administration Heparin Sodium (Porcine) 5,000 unit 12/22/16 14:00 12/23/16 06:44 Heparin - SQ 5,000 unit TID TOSIN Administration Amino Acids 1,000 mls @ 42 mls/hr 12/20/16 17:45 12/22/16 17:55 Clinimix - IV Not Given Q24H TOSIN Levetiracetam 500 mg 12/22/16 18:00 12/23/16 06:38 Keppra Injection - IVPB 500 mg BID@0600,1800 TOSIN Administration Sodium Chloride 1,000 ml 12/22/16 07:19 Normal Saline - IV Q20M PRN MAP<65mm Hg OR SBP <90 Assessment & Plan 36 year-old male [place] resident, with congenital quadriplegia, general convulsive epilepsy, profound MR, monocular extropia, nonverbal, and severe mental deficits. Admitted with sepsis due to bowel perforation secondary to J tube placement. 1. Sepsis d/t bowel perforation, resolved --completed 6 day course of Zosyn --afebrile, no leukocytosis --continue to observe off antibiotics 2. Small bowel perforation from J tube --IR drainage performed 12/18; cultures negative --J/G tube in place, tube feeds started 12/22, tolerating so far --continue climinix one more day Seizure disorder --continue Keppra IV Hypertension --continue atenolol Hypomagnesemia --resolved Functional quadriplegia --congenital quadriplegia, profound mental retardation --dependent for all ADLs: feeding, toileting, positioning FEN Fluids/Nutrition: Vital 1.2 @ 10-20cc/hr, increase slowly as tolerated to goal: 45cc/hr; 25ml/hr pump flush Electrolytes: replete as indicated DVT prophylaxis: subq heparin Dispo: continues to require inpatient care. Visit type - Emergency Visit Emergency Visit: Yes ED Registration Date: 12/17/16 Care time: The patient presented to the Emergency Department on the above date and was hospitalized for further evaluation of their emergent condition. - New Patient This patient is new to me today: Yes Date on this admission: 12/23/16 - Critical Care Critical Care patient: No
[2016-12-23] MEDS ORDERED: MAG HYDROX/AL HYDROX/SIMETH 30 ML UNIT-DOSE CUP PEG PRN (11:09)
[2016-12-23] MEDS ORDERED: BISACODYL 10 MG SUPP.RECT RC PRN (11:09)
[2016-12-23] MEDS ORDERED: ALBUTEROL SO4 0.083% IH SOL 2.5 MG/3 ML VIAL.NEB. NEB PRN (11:09)
[2016-12-23] MEDS: ATENOLOL 25 MG TABLET (FP) GT SCH (11:12)
[2016-12-23] MEDS ORDERED: PNV PEG SCH (11:15)
[2016-12-23] MEDS ORDERED: [UNRECOGNIZED DRUG - MIXTURE] PEG SCH (11:15)
[2016-12-23] MEDS ORDERED: MOMETASONE FUROATE NS SCH (11:15)
[2016-12-23] MEDS ORDERED: IRON CARB PEG SCH (11:15)
[2016-12-23] MEDS ORDERED: [UNRECOGNIZED DRUG - OTHER] PEG SCH (11:15)
[2016-12-23] MEDS: METOCLOPRAMIDE HCL 5 MG/5 ML UNIT DOSE CUP PEG SCH ×2 (15:14→22:00)
[2016-12-23] MEDS: SIMETHICONE 40 MG/0.6 ML BOTTLE GT SCH ×2 (15:16→18:58)
[2016-12-23] MEDS: FLUTICASONE PROP 0.05% 16 GM NASAL SPRAY NS SCH (15:18)
[2016-12-23] MEDS: FERROUS SO4 300 MG/5 ML ORAL SOLN UNIT DOSE CUPS PEG SCH (16:11)
[2016-12-23] MEDS: POTASSIUM CHLORIDE ORAL LIQUID 20 MEQ/15 ML PEG SCH (16:12)
[2016-12-23] MEDS: TIAGABINE HCL 4 MG PEG SCH ×2 (16:13→21:21)
[2016-12-23] MEDS: BACLOFEN 10 MG TABLET (FP) PEG SCH ×2 (16:13→21:18)
[2016-12-23] MEDS: PATIENT'S OWN MEDICATION (NON-FORMULARY) (Tizanidine Hcl [Tizanidine Hcl] 4 MG) PEG SCH ×3 (16:13→21:21)
[2016-12-23] MEDS: CALCIUM 500MG/VIT-D 200 UNITS COMBO TABLET (FP) PEG SCH ×2 (16:13→21:19)
[2016-12-23] MEDS: SUCRALFATE 1 GM/10 ML UNIT DOSE CUPS PEG SCH ×2 (16:26→21:18)
[2016-12-23] MEDS: AMINO ACIDS 4.25%/D5W 1,000 ML IV SCH ×2 (16:26→17:11)
[2016-12-23] MEDS ORDERED: SODIUM CHLORIDE 250 ML IV STA (17:43)
[2016-12-23] MEDS ORDERED: PT OWN MED DRAWER 7, Y5N ONE ×2 (18:55→21:22)
[2016-12-23] MEDS: LACTOBACILLUS ACIDOPHILUS 1 EACH TAB (FP) PEG SCH (21:18)
[2016-12-23] MEDS: levETIRAcetam 500 MG/5 ML ORAL SOLUTION (UNIT-DOSE CUPS) GT SCH (21:18)
[2016-12-24] MEDS: SIMETHICONE 40 MG/0.6 ML BOTTLE GT SCH ×4 (06:45→18:49)
[2016-12-24] MEDS: HEPARIN NA (PORCINE) 5,000 UNITS/ML 1ML VIAL SQ SCH ×3 (06:45→21:49)
[2016-12-24] MEDS: TIAGABINE HCL 4 MG PEG SCH ×3 (06:46→21:48)
[2016-12-24] MEDS: BACLOFEN 10 MG TABLET (FP) PEG SCH ×3 (06:46→21:46)
[2016-12-24] MEDS: CALCIUM 500MG/VIT-D 200 UNITS COMBO TABLET (FP) PEG SCH ×3 (06:46→21:47)
[2016-12-24] MEDS ORDERED: PT OWN MED DRAWER 7, Y5N ONE ×2 (07:24→08:48)
--- NOTE | 2016-12-24 09:48 | DS ---
Physical Exam: SUBJECTIVE: Patient seen and examined at bedside. OBJECTIVE: Vital Signs Period Temp Pulse Resp BP Sys/Bruce Pulse Ox Last 24 Hr 97.2 F-98.3 F 67-94 18-20 88-144/53-89 PHYSICAL EXAM GENERAL/NEURO: The patient is awake. Vocalizes to physical stimuli. Nonverbal, baseline functioning. HEAD: Normal with no signs of trauma. EYES: PERRL, sclera anicteric, conjunctiva clear. No ptosis. LUNGS: Coarse breath sounds. No wheezes, no crackles, no accessory muscle use. HEART: Regular rate and rhythm, S1, S2 without murmur, rub or gallop. ABDOMEN: J-G tube; tube feeds running; J tube draining clear light green fluid; no drainage from LLQ fistula EXTREMITIES: contracted; 2+ pulses, warm, well-perfused, no edema. LABS CBCD WBC 4.4 K/mm3 (4.0-10.0) 12/22/16 07:45 RBC 3.58 M/mm3 (4.00-5.60) L 12/22/16 07:45 Hgb 8.5 GM/dL (11.7-16.9) L 12/22/16 07:45 Hct 26.3 % (35.4-49) L 12/22/16 07:45 MCV 73.4 fl (80-96) L 12/22/16 07:45 MCHC 32.4 g/dl (32.0-35.9) 12/22/16 07:45 RDW 15.6 % (11.9-15.9) 12/22/16 07:45 Plt Count 207 K/MM3 (134-434) 12/22/16 07:45 MPV 6.6 fl (7.5-11.1) L 12/22/16 07:45 CMP Sodium 134 mmol/L (136-145) L 12/23/16 06:30 Potassium 3.7 mmol/L (3.5-5.1) 12/23/16 06:30 Chloride 99 mmol/L (98-107) 12/23/16 06:30 Carbon Dioxide 28 mmol/L (21-32) 12/23/16 06:30 Anion Gap 7 (8-16) L 12/23/16 06:30 BUN 11 mg/dL (7-18) 12/23/16 06:30 Creatinine 0.2 mg/dL (0.7-1.3) L 12/23/16 06:30 Creat Clearance w eGFR > 60 (>60) 12/22/16 07:45 Calcium 8.3 mg/dL (8.5-10.1) L 12/23/16 06:30 Total Bilirubin 0.4 mg/dL (0.2-1.0) 12/22/16 07:45 AST 7 U/L (15-37) L 12/22/16 07:45 ALT 12 U/L (12-78) 12/22/16 07:45 Alkaline Phosphatase 42 U/L (45-117) L 12/22/16 07:45 Total Protein 6.7 g/dl (6.4-8.2) 12/22/16 07:45 Albumin 2.9 g/dl (3.4-5.0) L 12/22/16 07:45 HOSPITAL COURSE: Date of Admission:12/17/16 Date of Discharge: 12/25/16 36 year-old male [place] resident, with congenital quadriplegia, general convulsive epilepsy, profound MR, monocular extropia, nonverbal, and severe mental deficits. He was sent to the ED because of hypotension and hypoxia. On exam patient was observed to have pus surrounding his J tube and yellow fluid from is LLQ fistula. WBC 20k. Blood and urine cultures were negative. Culture of abdominal fluid was also negative. Initial CT noncontrast imaging was done on 12/17. The study was severely limited due in part to patient's inability to cooperate, a severe dextroscoliosis of the lumbar spine, and deformity of the pelvis. A PEG tube was identified within the body of the stomach which had been advanced through the duodenum into a proximal jejeunal loop. There was an apparent perforation of a jejunal loop by the tube with pooling of the tube feeding within the anterior pelvis. Patient was started on antibiotics and he completed a 6 day-course of Zosyn. He was afebrile throughout his hospital stay. His WBC has been within normal limits since 12/19/16. On 12/18/16 patient was brought to the IR suite and seen and examined by an interventional radiologist. Under fluoroscopy, there was no sign of a bowel perforation. Nor was there fluid/pooling within the anterior pelvis. The G/J tube was functioning and left in situ. Repeat CT imaging on 12/20/16 No gross contrast extravasation or pneumoperitoneum was identified. The PEG tube was again seen with the tip extending into the small bowel within the right abdomen. There was no free intraperitoneal fluid. Tube feeding was resumed on 12/23/16. Patient has been tolerating well. Although there was initial suspicion that the patient might have a perforated bowel, the initial CT study was severely limited. No perforation was seen under fluoroscopy or on repeat CT imaging. The G/J tube has remained in situ and is functioning well. Sepsis secondary to abdominal infection Seizure disorder Hypertension Hypomagnesemia Functional quadriplegia Minutes to complete discharge: 35 Discharge Summary Reason For Visit: SEPSIS Current Active Problems Perforated small intestine (Acute) Pneumonia (Acute) Sepsis (Acute) Condition: Improved - Instructions Referrals: Dae Gusman Jr [Primary Care Provider] - Disposition: TRANSFER ACUTE CARE/OTHER HOSP - Home Medications Comprehensive Discharge Medication List: Ambulatory Orders Atenolol [Tenormin -] 25 mg PEG DAILY 06/19/13 Baclofen [Lioresal -] 10 mg PEG TID 06/19/13 Mometasone Furoate [Nasonex] 1 - 2 inh NS DAILY 06/19/13 Pnv/Iron,Carb/Om-3/FA/Fat 1 [Multivitamin with Minerals Cap] 1 cap PEG DAILY Tiagabine HCl [Gabitril] 4 mg PEG TID 06/19/13 Tizanidine HCl 4 mg PEG QID 06/19/13 Albuterol 0.083% Nebulizer Lupe [Ventolin 0.083% Nebulizer Soln -] 1 neb NEB Q4H PRN 12/17/16 Bisacodyl Suppository [Dulcolax Suppository -] 10 mg RC ASDIR PRN 12/17/16 Calcium Carbonate/Vitamin D3 [Calcium 500-Vit D3 200 Caplet] 1 each PEG TID Enema Bag, Disposable [Enema Bag] 1 each RC ASDIR PRN 12/17/16 Ferrous Sulfate *Liquid* [Feosol *Liquid*] 5 ml PEG DAILY 12/17/16 Fluticasone Prop 0.05% Nasal [Flonase -] 1 spray NS DAILY 12/17/16 Mag Hydrox/Al Hydrox/Simeth [Antacid-Antigas Liquid] 5 ml PEG Q8H PRN 12/17/16 Metoclopramide HCl 5 mg PEG BID 12/17/16 Nut.tx.impaired Digest Fxn [Peptamen 1.5] 850 ml GT 199912/17/16 Potassium Chloride 7.5 ml PEG DAILY 12/17/16 Protein Supplement [Promod] 30 ml PEG DAILY 12/17/16 Simethicone Liquid [Mylicon Liquid -] 40 mg GT Q6H 12/17/16 Sucralfate [Carafate] 1 gm PEG BID 12/17/16 Zinc Gluconate [Zinc] 10 mg DAILY 12/17/16 Zinc Oxide 0 gm TP PRN 12/17/16 Lactobacillus Acidophilus [Acidophilus] 1 each PEG BID 12/23/16 Levetiracetam [Keppra Oral Solution -] 500 mg GT BID #5 ml 12/24/16 This patient is new to me today: No Emergency Visit: Yes ED Registration Date: 12/17/16 Care time: The patient presented to the Emergency Department on the above date and was hospitalized for further evaluation of their emergent condition. Critical Care patient: No - Discharge Referral Referred to [facility] No
[2016-12-24] MEDS ORDERED: ATENOLOL 25 MG TABLET (FP) PEG SCH (10:00)
[2016-12-24] MEDS: LACTOBACILLUS ACIDOPHILUS 1 EACH TAB (FP) PEG SCH ×2 (10:34→21:45)
[2016-12-24] MEDS: SUCRALFATE 1 GM/10 ML UNIT DOSE CUPS PEG SCH ×2 (10:34→21:46)
[2016-12-24] MEDS: levETIRAcetam 500 MG/5 ML ORAL SOLUTION (UNIT-DOSE CUPS) GT SCH ×2 (10:38→21:44)
[2016-12-24] MEDS: POTASSIUM CHLORIDE ORAL LIQUID 20 MEQ/15 ML PEG SCH (10:39)
[2016-12-24] MEDS: MULTIVITAMINS THER W-MINERALS COMBO TABLET (FP) PO SCH (10:40)
[2016-12-24] MEDS: METOCLOPRAMIDE HCL 5 MG/5 ML UNIT DOSE CUP PEG SCH ×2 (10:40→21:47)
[2016-12-24] MEDS: FERROUS SO4 300 MG/5 ML ORAL SOLN UNIT DOSE CUPS GT SCH (11:14)
[2016-12-24] MEDS: FLUTICASONE PROP 0.05% 16 GM NASAL SPRAY NS SCH (11:32)
[2016-12-24] MEDS: PATIENT'S OWN MEDICATION (NON-FORMULARY) (Tizanidine Hcl [Tizanidine Hcl] 4 MG) PEG SCH ×3 (16:15→22:00)
[2016-12-24] MEDS: FERROUS SO4 300 MG/5 ML ORAL SOLN UNIT DOSE CUPS PEG SCH (16:33)
[2016-12-24] MEDS: AMINO ACIDS 4.25%/D5W 1,000 ML IV SCH (18:48)
[2016-12-25] MEDS: SIMETHICONE 40 MG/0.6 ML BOTTLE GT SCH ×3 (05:54→15:07)
[2016-12-25] MEDS: CALCIUM 500MG/VIT-D 200 UNITS COMBO TABLET (FP) PEG SCH ×3 (05:55→23:06)
[2016-12-25] MEDS: BACLOFEN 10 MG TABLET (FP) PEG SCH ×3 (05:55→22:00)
[2016-12-25] MEDS: TIAGABINE HCL 4 MG PEG SCH ×3 (05:56→23:08)
[2016-12-25] MEDS: HEPARIN NA (PORCINE) 5,000 UNITS/ML 1ML VIAL SQ SCH ×3 (05:57→23:04)
[2016-12-25] MEDS ORDERED: PT OWN MED DRAWER 7, Y5N ONE ×3 (09:35→23:21)
[2016-12-25] MEDS ORDERED: INSULIN (NOVOLOG) ASPART 100 UNITS/ML 10ML VIAL ONE (09:39)
[2016-12-25] MEDS: FERROUS SO4 300 MG/5 ML ORAL SOLN UNIT DOSE CUPS GT SCH (09:41)
[2016-12-25] MEDS: POTASSIUM CHLORIDE ORAL LIQUID 20 MEQ/15 ML PEG SCH (09:41)
[2016-12-25] MEDS: SUCRALFATE 1 GM/10 ML UNIT DOSE CUPS PEG SCH ×2 (09:41→22:00)
[2016-12-25] MEDS: MULTIVITAMINS THER W-MINERALS COMBO TABLET (FP) PO SCH (09:42)
[2016-12-25] MEDS: LACTOBACILLUS ACIDOPHILUS 1 EACH TAB (FP) PEG SCH ×2 (09:42→23:01)
[2016-12-25] MEDS: levETIRAcetam 500 MG/5 ML ORAL SOLUTION (UNIT-DOSE CUPS) GT SCH ×2 (09:42→23:02)
[2016-12-25] MEDS: FLUTICASONE PROP 0.05% 16 GM NASAL SPRAY NS SCH (09:43)
[2016-12-25] MEDS: PATIENT'S OWN MEDICATION (NON-FORMULARY) (Tizanidine Hcl [Tizanidine Hcl] 4 MG) PEG SCH ×3 (09:44→23:00)
[2016-12-25] MEDS: METOCLOPRAMIDE HCL 5 MG/5 ML UNIT DOSE CUP PEG SCH ×2 (09:44→23:06)
--- NOTE | 2016-12-25 14:20 | EKG ---
Test Reason : Blood Pressure : / mmHG Vent. Rate : 099 BPM Atrial Rate : 099 BPM P-R Int : 136 ms QRS Dur : 066 ms QT Int : 342 ms P-R-T Axes : 080 018 012 degrees QTc Int : 438 ms POOR DATA QUALITY, INTERPRETATION MAY BE ADVERSELY AFFECTED NORMAL SINUS RHYTHM ABNORMAL ECG WHEN COMPARED WITH ECG OF 16-DEC-2016 23:24, ST NOW DEPRESSED IN INFERIOR LEADS T WAVE INVERSION NOW EVIDENT IN INFERIOR LEADS Confirmed by SHWETHA URIBE MD ([id number]) on 12/25/2016 2:19:52 PM Referred By: Confirmed By:SHWETHA URIBE MD
[2016-12-25 16:38] LABS: ARTERIAL BLD GAS O2 SATURATION 99.2 % (90-98.9); ARTERIAL BLOOD GAS BASE EXCESS 4.2 meq/l (-2-2); ARTERIAL BLOOD GAS pH 7.39 (7.35-7.45)
[2016-12-25 16:40] LABS: ALLENS TEST POSITIVE; ART PUNCT SITE LEFT RADIAL; PT. ON O2? YES; TYPE OF O2 NASAL
--- NOTE | 2016-12-25 16:57 | RAPID ---
<Samantha Toro - Last Filed: 12/25/16 17:17> Physical Examination Vital Signs: Vital Signs Temperature 98.5 F 12/25/16 15:24 Pulse Rate 94 H 12/25/16 15:24 Respiratory Rate 18 12/25/16 15:24 Blood Pressure 119/74 12/25/16 15:24 O2 Sat by Pulse Oximetry (%) 99 12/25/16 10:00 Constitutional: Yes: Diaphoresis Eyes: Yes: Other (pinpoint pupils) HENT: Yes: Atraumatic. No: Drooling Neck: Yes: Supple Cardiovascular: Yes: Regular Rate and Rhythm, Bradycardia. No: S1, S2 Respiratory: Yes: WNL, Regular Gastrointestinal: Yes: Soft, Other (no bowel sounds appreciated) Edema: No Neurological: Yes: Lethargy Labs: CBC, BMP 12/22/16 07:45 12/23/16 06:30 Rapid Response - Rapid Response Assessment: 36 year-old male [place] resident, with congenital quadriplegia, general convulsive epilepsy, profound MR, monocular extropia, nonverbal, and severe mental deficits. He was sent to the ED because of hypotension and hypoxia. he was admitted for sepsis secondary to abdominal infection. Recommendations/Interventions: We were called to assess the pt. He was hypotensive and bradycardic. 70/40 HR 50s. The pt was also found to be lethargic and diaphoretic. Upon physical examination he was lethargic, not following commands and not at his usual mental state. His abdomen was distended, soft and we couldn't appreciate BS. He was given NS bolus to increase BP. We ordered EKG that showed sinus bradycardia, ST depression that was present in the past. We ordered CXR, blood cultures, PT/PTT, type and screen, CBC, troponins, LA and abdominal/pelvis CT to r/o infection/abscess/bleeding. The pt's BP improved to 90s/50 and we transferred him to ICU for further monitoring. Primary Physician Notified: Cathie Portillo Plan: Follow up CT abdomen pelvis, blood cultures, troponins, LA, CXR, CBC and monitor in ICU. Critical Care Total Critical Care Time (in minutes): 30 Critical Care Statement: The care of this patient involved high complexity decision making to prevent further life threatening deterioration of the patient 's condition and/or to evaluate & treat vital organ system(s) failure or risk of failure. <Viral Galvez - Last Filed: 12/28/16 14:39> Physical Examination Vital Signs: Labs: CBC, BMP 12/28/16 07:50 12/28/16 07:30 Critical Care Total Critical Care Time (in minutes): 30 Critical Care Statement: The care of this patient involved high complexity decision making to prevent further life threatening deterioration of the patient 's condition and/or to evaluate & treat vital organ system(s) failure or risk of failure.
[2016-12-25 17:01] LABS: BASOPHIL 0.9 % (0-2.0); EOSINOPHIL 1.9 % (0-4.5); MCH 23.4 pg (25.7-33.7); MCHC 32.3 g/dl (32.0-35.9); MEAN CELL VOLUME 72.6 fl (80-96); MEAN PLT VOLUME 6.8 fl (7.5-11.1); NEUTROPHILS 57.6 % (42.8-82.8); PLATELET COUNT 210 K/MM3 (134-434); RDW 16.2 % (11.9-15.9); WHITE BLOOD COUNT 4.3 K/mm3 (4.0-10.0)
[2016-12-25 17:14] LABS: INR 1.37 (0.82-1.09); PROTHROMBIN TIME (PATIENT) 15.2 SEC (9.98-11.88)
[2016-12-25] MEDS ORDERED: ATROPINE SO4 0.4 MG/1 ML VIAL IVPUSH ONE ×2 (17:21→17:32)
[2016-12-25 17:32] LABS: ALBUMIN 2.5 g/dl (3.4-5.0); ANION GAP 6 (8-16); CALCIUM 8.4 mg/dL (8.5-10.1); CO2 29 mmol/L (21-32); GLUCOSE,RANDOM 135 mg/dL (74-106); MAGNESIUM 1.9 mg/dL (1.8-2.4)
[2016-12-25 17:37] LABS: ALK PHOS 38 U/L (45-117); BILIRUBIN,TOTAL 0.3 mg/dL (0.2-1.0); CREATININE 0.2 mg/dL (0.7-1.3); SGOT/AST 8 U/L (15-37); SGPT/ALT 14 U/L (12-78)
[2016-12-25] MEDS ORDERED: MAGNESIUM SULF 50% (8.12 MEQ/2 ML-1 GM VIAL) IVPB ONE (18:10)
--- NOTE | 2016-12-25 21:54 | CONSULT ---
Consult Consult Specialty:: Pulmonary Critical Care Reason for Consultation:: Hypotension - History of Present Illness Chief Complaint: Hypotension History of Present Illness: Pt is a 36 yo male [place] resident who congenital quadraplegia, general convulsive epilipsy, profound MR who is at baseline nonverbal and bedbound initially admitted to ICU on 12/17 with septic shock and a suspicion of perforated bowel post J tube placement. Pt initially brought in with hypotension and hypoxia. Admission CT A/P was c/f perforated of a jejunal loop, presumably in the setting of J tube placement. Pt was admitted to ICU for further management. On 12/18 pt went to IR and under fluoroscopy there was no signs of perforated bowel. The G/J tube was functioning and was left in situ. Ultimately he was started on tube feedings and tolerated that well. While in ICU he completed 6 day course of Zosyn with resolution of fevers and stabilization of WBC. On 12/22 he was transferred out of the ICU and today was supposed to be transferred back to the [facility]. Earlier today FIRE TECHNICIAN called for hypotension and bradycardia, reported BP 70/40 with HR of 50s. He was given 2.5 L of NS with improvement in BP to 90/50. He was then transferred back to ICU for further management. Of note pt's Hgb today 7.3 (admission Hgb 10.3 with a gradual decline over the week). No overt signs of bleeding, however as per report pt had guiac positive stool. CT A/P negative for any acute processes. Current Medications Al Hydroxide/Mg Hydroxide (Mylanta Oral Suspension -) 5 ml PEG ASDIR PRN PRN Reason: DYSPEPSIA Albuterol Sulfate (Ventolin 0.083% Nebulizer Soln -) 1 amp NEB Q4H PRN PRN Reason: SHORT OF BREATH/WHEEZING Atenolol (Tenormin -) 25 mg GT DAILY [facility] Last Admin: 12/23/16 11:12 Dose: 25 mg Baclofen (Lioresal -) 10 mg PEG TID [facility] Last Admin: 12/25/16 15:06 Dose: 10 mg Bisacodyl (Dulcolax Suppository -) 10 mg RC DAILY PRN PRN Reason: CONSTIPATION Calcium Carbonate/Cholecalciferol (Os-Gerald 500+D -) 1 tab PEG TID [facility] Last Admin: 12/25/16 15:05 Dose: 1 tab Ferrous Sulfate (Feosol) 300 mg GT DAILY [facility] Last Admin: 12/25/16 09:41 Dose: 300 mg Fluticasone Propionate (Flonase -) 1 spray NS DAILY [facility] Last Admin: 12/25/16 09:43 Dose: 1 spray Heparin Sodium (Porcine) (Heparin -) 5,000 unit SQ TID [facility] Last Admin: 12/25/16 15:06 Dose: 5,000 unit Amino Acids (Clinimix -) 1,000 mls @ 42 mls/hr IV Q24H [facility] Last Admin: 12/24/16 18:48 Dose: Not Given Dextrose/Sodium Chloride (D5-Ns -) 1,000 mls @ 83 mls/hr IV ASDIR [facility] Lactobacillus Acidophilus (Bacid -) 1 tab PEG BID [facility] Last Admin: 12/25/16 09:42 Dose: 1 tab Levetiracetam (Keppra Oral Solution -) 500 mg GT BID [facility] Last Admin: 12/25/16 09:42 Dose: 500 mg Metoclopramide HCl (Reglan Oral Solution -) 5 mg PEG BID [facility] Last Admin: 12/25/16 09:44 Dose: 5 mg Multivitamins/Minerals (Theragran-M) 1 each PO DAILY [facility] Last Admin: 12/25/16 09:42 Dose: 1 each Non-Formulary Medication (Tiagabine Hcl [Gabitril]) 4 mg PEG TID [facility] Last Admin: 12/25/16 15:07 Dose: 4 mg Non-Formulary Medication (Tizanidine Hcl [Tizanidine Hcl]) 4 mg PEG QID [facility] Last Admin: 12/25/16 15:06 Dose: 4 mg Potassium Chloride (Potassium Chloride Oral Liquid) 10 meq PEG DAILY [facility] Last Admin: 12/25/16 09:41 Dose: 10 meq Simethicone (Mylicon Liquid -) 40 mg GT Q6HPO [facility] Last Admin: 12/25/16 15:07 Dose: 40 mg Sucralfate (Carafate Oral Suspension -) 1 gm PEG BID [facility] Last Admin: 12/25/16 09:41 Dose: 1 gm 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) - Past Surgical History Additional Surgical History: As above - Alcohol/Substance Use Hx Alcohol Use: No - Smoking History Smoking history: Never smoked Have you smoked in the past 12 months: No - Social History Usual Living Arrangement: [facility] History of Recent Travel: No Home Medications - Allergies Allergies/Adverse Reactions: Allergies Allergy/AdvReac Type Severity Reaction Status Date / Time No Known Allergies Allergy Verified 06/18/13 23:43 - Home Medications Home Medications: Ambulatory Orders Atenolol [Tenormin -] 25 mg PEG DAILY 06/19/13 Baclofen [Lioresal -] 10 mg PEG TID 06/19/13 Mometasone Furoate [Nasonex] 1 - 2 inh NS DAILY 06/19/13 Pnv/Iron,Carb/Om-3/FA/Fat 1 [Multivitamin with Minerals Cap] 1 cap PEG DAILY Tiagabine HCl [Gabitril] 4 mg PEG TID 06/19/13 Tizanidine HCl 4 mg PEG QID 06/19/13 Albuterol 0.083% Nebulizer Lupe [Ventolin 0.083% Nebulizer Soln -] 1 neb NEB Q4H PRN 12/17/16 Bisacodyl Suppository [Dulcolax Suppository -] 10 mg RC ASDIR PRN 12/17/16 Calcium Carbonate/Vitamin D3 [Calcium 500-Vit D3 200 Caplet] 1 each PEG TID Enema Bag, Disposable [Enema Bag] 1 each RC ASDIR PRN 12/17/16 Ferrous Sulfate *Liquid* [Feosol *Liquid*] 5 ml PEG DAILY 12/17/16 Fluticasone Prop 0.05% Nasal [Flonase -] 1 spray NS DAILY 12/17/16 Mag Hydrox/Al Hydrox/Simeth [Antacid-Antigas Liquid] 5 ml PEG Q8H PRN 12/17/16 Metoclopramide HCl 5 mg PEG BID 12/17/16 Nut.tx.impaired Digest Fxn [Peptamen 1.5] 850 ml GT 199912/17/16 Potassium Chloride 7.5 ml PEG DAILY 12/17/16 Protein Supplement [Promod] 30 ml PEG DAILY 12/17/16 Simethicone Liquid [Mylicon Liquid -] 40 mg GT Q6H 12/17/16 Sucralfate [Carafate] 1 gm PEG BID 12/17/16 Zinc Gluconate [Zinc] 10 mg DAILY 12/17/16 Zinc Oxide 0 gm TP PRN 12/17/16 Lactobacillus Acidophilus [Acidophilus] 1 each PEG BID 12/23/16 Levetiracetam [Keppra Oral Solution -] 500 mg GT BID #5 ml 12/24/16 Physical Exam Vital Signs: Vital Signs Temperature 97.4 F L 12/25/16 19:15 Pulse Rate 72 12/25/16 19:15 Respiratory Rate 12 12/25/16 19:15 Blood Pressure 125/74 12/25/16 19:15 O2 Sat by Pulse Oximetry (%) 100 12/25/16 20:59 Cardiovascular: Yes: Regular Rate and Rhythm Respiratory: Yes: Other (coarse BS bilaterally, ++ secretions) Gastrointestinal: Yes: Other (softly distended, PEG tube s) Extremities: Yes: Other (contracted) Edema: No Neurological: Yes: Other (awake, nonverbal) Labs: CBC, BMP 12/25/16 16:45 12/25/16 16:45 Imaging - Results Chest X-ray: Report Reviewed Cat Scan: Report Reviewed Assessment/Plan ASSESSMENT: Hypotension likely in the setting of hypovolemia given improvement with fluids/ PRBC. Less likely infectious given no fevers and stable WBC Anemia, no overt signs of bleeding. No melena, no bloody NGT output, occult blood negative making GIB less likely Seizures Dislodged PEG (attempted to place yarbrough into stoma to keep track open however unable to secure sufficiently enough) PLAN: -2units PRBC transfused -recheck CBC post transfusion -hold atenolol -manzano cultures -low threshold for ABX -Abd X-ray -GI consult for PEG placement -NPO at this time -cont keppra IV -can be transferred back to the floor and subsequently [facility] if remains hemodynamically stable overnight [facility] Critical Care Time: 35 min
[2016-12-25 21:58] LABS: URINE APPEARANCE CLOUDY; URINE BILIRUBIN NEGATIVE (NEGATIVE); URINE BLOOD NEGATIVE (NEGATIVE); URINE COLOR AMBER; URINE GLUCOSE (UA) NEGATIVE (NEGATIVE); URINE KETONE NEGATIVE (NEGATIVE); URINE NITRITE NEGATIVE (NEGATIVE); URINE PROTEIN NEGATIVE (NEGATIVE); URINE UROBILINOGEN NEGATIVE mg/dL (0.2-1.0)
[2016-12-25] MEDS: DEXTROSE 5%-NORMAL SALINE 1,000 ML IV SCH (22:30)
[2016-12-25] MEDS ORDERED: MULTIVIT-MINERALS 236 ML ML PO SCH (23:15)
[2016-12-25] MEDS ORDERED: MULTIVIT-MINERALS 236 ML ML GT SCH (23:21)
[2016-12-25 23:24] LABS: URINE LEUK ESTERASE Negative (NEGATIVE)
[2016-12-25] MEDS ORDERED: levETIRAcetam 500 MG/5 ML INJECTION VIAL IVPB ONE (23:45)
[2016-12-26] MEDS: SIMETHICONE 40 MG/0.6 ML BOTTLE GT SCH ×4 (00:27→17:31)
[2016-12-26 02:19] LABS: MCH 25.2 pg (25.7-33.7); MCHC 32.6 g/dl (32.0-35.9); MEAN CELL VOLUME 77.5 fl (80-96); MEAN PLT VOLUME 7.4 fl (7.5-11.1); PLATELET COUNT 238 K/MM3 (134-434); RDW 18.2 % (11.9-15.9); WHITE BLOOD COUNT 6.6 K/mm3 (4.0-10.0)
[2016-12-26 05:55] LABS: MCH 25.6 pg (25.7-33.7); MCHC 33.8 g/dl (32.0-35.9); MEAN CELL VOLUME 75.8 fl (80-96); MEAN PLT VOLUME 7.2 fl (7.5-11.1); PLATELET COUNT 242 K/MM3 (134-434); RDW 17.8 % (11.9-15.9); WHITE BLOOD COUNT 6.8 K/mm3 (4.0-10.0)
[2016-12-26 06:40] LABS: ALBUMIN 2.8 g/dl (3.4-5.0); ANION GAP 7 (8-16); CALCIUM 8.7 mg/dL (8.5-10.1); CO2 27 mmol/L (21-32); GLUCOSE,RANDOM 107 mg/dL (74-106); MAGNESIUM 1.9 mg/dL (1.8-2.4); PHOSPHOROUS 3.2 mg/dL (2.5-4.9)
[2016-12-26 06:43] LABS: ALK PHOS 43 U/L (45-117); BILIRUBIN,TOTAL 1.8 mg/dL (0.2-1.0); CREATININE < 0.2 mg/dL (0.7-1.3); SGOT/AST 13 U/L (15-37); SGPT/ALT 17 U/L (12-78); TOT PROT 6.5 g/dl (6.4-8.2)
[2016-12-26] MEDS: BACLOFEN 10 MG TABLET (FP) PEG SCH ×3 (06:43→22:52)
[2016-12-26] MEDS: CALCIUM 500MG/VIT-D 200 UNITS COMBO TABLET (FP) PEG SCH ×3 (06:44→22:47)
[2016-12-26] MEDS: TIAGABINE HCL 4 MG PEG SCH ×2 (06:44→14:48)
[2016-12-26] MEDS: HEPARIN NA (PORCINE) 5,000 UNITS/ML 1ML VIAL SQ SCH ×3 (06:51→22:46)
[2016-12-26 08:21] LABS: BILIRUBIN,DIRECT 0.3 mg/dL (0.0-0.2)
[2016-12-26 08:22] LABS: LDH 138 U/L (87-241)
[2016-12-26] MEDS ORDERED: FUROSEMIDE 40 MG/4 ML INJECTABLE VIAL IVPUSH STA (09:11)
[2016-12-26] MEDS: TIZANIDINE HCL 3 MG PEG SCH ×2 (10:00→14:00)
--- NOTE | 2016-12-26 10:05 | PN ---
Physical Exam: SUBJECTIVE: Responded to rapid response. Found patient supine in bed, unresponsive, breathing, with a pulse. BP 70/30s, HR 40s. Additional peripheral access obtained. Bolus fluids started with improvement in BP to 110's systolic. Patient maintained excellent oxygen saturation throughout on 2L NC and ABG showed good oxygenation. ECG showed sinus domo with twave inversions in V1, V2 also seen on ECG from 12/17. No arrythmias noted on telemetry and ECG strips. CXR , CT chest, abdomen, pelvis orderd. Stat cbc, cmp, lactic acid, troponins ordered. Stool guiaic done. Hurtado-cultured. Sam placed. NGT placed. In course of response, while transferring patient in CT G/J tube dislodged. Occlusive dressing placed over stoma. Accompanied patient to CT scanning due to hemodynamic instability, and stayed with patient upon transfer to ICU. Ordered 2 units PRBC. Total critical care time: 180 minutes. (4pm to 7pm). OBJECTIVE: Vital Signs Temperature 98.5 F 12/25/16 15:24 Pulse Rate 94 H 12/25/16 15:24 Respiratory Rate 18 12/25/16 15:24 Blood Pressure 119/74 12/25/16 15:24 O2 Sat by Pulse Oximetry (%) 99 12/25/16 10:00 At the time of the rapid response: GENERAL: The patient somnolent. Not opening eyes. Not following commands. Withdrew to physical stimuli (peripheral IV insertion). LUNGS: Rhonchorous throughout, baseline. HEART: Regular rate and rhythm, S1, S2 without murmur, rub or gallop. ABDOMEN: Distended, absent bowel sounds. EXTREMITIES: 2+ pulses, warm, well-perfused, no edema. Contracted NEUROLOGICAL: Cranial nerves II through XII grossly intact. Normal speech, gait not observed. PSYCH: Normal mood, normal affect. SKIN: Warm, dry, normal turgor, no rashes or lesions noted Laboratory Results - last 24 hr 12/25/16 12/25/16 12/25/16 15:58 16:15 16:45 WBC 4.3 RBC 3.13 L Hgb 7.3 L D Hct 22.7 L MCV 72.6 L MCH 23.4 L MCHC 32.3 RDW 16.2 H Plt Count 210 MPV 6.8 L Neutrophils % 57.6 Lymphocytes % 29.0 Monocytes % 10.6 H Eosinophils % 1.9 Basophils % 0.9 PT with INR INR Puncture Site Left radial ABG pH 7.39 ABG pCO2 at Pt Temp 48.8 H ABG pO2 at Pt Temp 149.0 H ABG HCO3 29.0 H ABG O2 Sat (Measured) 99.2 H ABG O2 Content 10.1 L ABG Base Excess 4.2 H Timmy Test Positive O2 Delivery Device Nasal Oxygen Flow Rate Yes PEEP 0.0 Sodium Potassium Chloride Carbon Dioxide Anion Gap BUN Creatinine Creat Clearance w eGFR POC Glucometer 147 Random Glucose Lactic Acid Calcium Phosphorus Magnesium Total Bilirubin Direct Bilirubin AST ALT Alkaline Phosphatase LD Total Troponin I Total Protein Albumin Urine Color Urine Appearance Urine pH Ur Specific Ethel Urine Protein Urine Glucose (UA) Urine Ketones Urine Blood Urine Nitrite Urine Bilirubin Urine Urobilinogen Ur Leukocyte Esterase Stool Occult Blood Blood Type Antibody Screen Crossmatch 12/25/16 12/25/16 12/25/16 16:45 16:45 16:45 WBC RBC Hgb Hct MCV MCH MCHC RDW Plt Count MPV Neutrophils % Lymphocytes % Monocytes % Eosinophils % Basophils % PT with INR 15.20 H INR 1.37 H Puncture Site ABG pH ABG pCO2 at Pt Temp ABG pO2 at Pt Temp ABG HCO3 ABG O2 Sat (Measured) ABG O2 Content ABG Base Excess Timmy Test O2 Delivery Device Oxygen Flow Rate PEEP Sodium 140 Potassium 3.7 Chloride 105 Carbon Dioxide 29 Anion Gap 6 L BUN 13 Creatinine 0.2 L Creat Clearance w eGFR > 60 POC Glucometer Random Glucose 135 H D Lactic Acid 0.4 Calcium 8.4 L Phosphorus 3.0 Magnesium 1.9 Total Bilirubin 0.3 D Direct Bilirubin AST 8 L ALT 14 Alkaline Phosphatase 38 L LD Total Troponin I Total Protein 6.0 L Albumin 2.5 L Urine Color Urine Appearance Urine pH Ur Specific Ethel Urine Protein Urine Glucose (UA) Urine Ketones Urine Blood Urine Nitrite Urine Bilirubin Urine Urobilinogen Ur Leukocyte Esterase Stool Occult Blood Blood Type Antibody Screen Crossmatch 12/25/16 12/25/16 12/25/16 16:45 16:45 19:30 WBC RBC Hgb Hct MCV MCH MCHC RDW Plt Count MPV Neutrophils % Lymphocytes % Monocytes % Eosinophils % Basophils % PT with INR INR Puncture Site ABG pH ABG pCO2 at Pt Temp ABG pO2 at Pt Temp ABG HCO3 ABG O2 Sat (Measured) ABG O2 Content ABG Base Excess Timmy Test O2 Delivery Device Oxygen Flow Rate PEEP Sodium Potassium Chloride Carbon Dioxide Anion Gap BUN Creatinine Creat Clearance w eGFR POC Glucometer Random Glucose Lactic Acid Calcium Phosphorus Magnesium Total Bilirubin Direct Bilirubin AST ALT Alkaline Phosphatase LD Total Troponin I < 0.02 Total Protein Albumin Urine Color Urine Appearance Urine pH Ur Specific Ethel Urine Protein Urine Glucose (UA) Urine Ketones Urine Blood Urine Nitrite Urine Bilirubin Urine Urobilinogen Ur Leukocyte Esterase Stool Occult Blood Negative Blood Type A POSITIVE Antibody Screen Negative Crossmatch See Detail 12/25/16 12/26/16 12/26/16 21:20 01:45 05:00 WBC 6.6 D 6.8 RBC 4.84 D 4.07 Hgb 12.2 D 10.4 L D Hct 37.5 D 30.9 L D MCV 77.5 L 75.8 L MCH 25.2 L 25.6 L MCHC 32.6 33.8 RDW 18.2 H D 17.8 H Plt Count 238 242 MPV 7.4 L 7.2 L Neutrophils % Lymphocytes % Monocytes % Eosinophils % Basophils % PT with INR INR Puncture Site ABG pH ABG pCO2 at Pt Temp ABG pO2 at Pt Temp ABG HCO3 ABG O2 Sat (Measured) ABG O2 Content ABG Base Excess Timym Test O2 Delivery Device Oxygen Flow Rate PEEP Sodium Potassium Chloride Carbon Dioxide Anion Gap BUN Creatinine Creat Clearance w eGFR POC Glucometer Random Glucose Lactic Acid Calcium Phosphorus Magnesium Total Bilirubin Direct Bilirubin AST ALT Alkaline Phosphatase LD Total Troponin I Total Protein Albumin Urine Color [place] Urine Appearance Cloudy Urine pH 7.0 Ur Specific Ethel 1.015 Urine Protein Negative Urine Glucose (UA) Negative Urine Ketones Negative Urine Blood Negative Urine Nitrite Negative Urine Bilirubin Negative Urine Urobilinogen Negative Ur Leukocyte Esterase Negative Stool Occult Blood Blood Type Antibody Screen Crossmatch 12/26/16 12/26/16 12/26/16 05:00 05:00 05:00 WBC RBC Hgb Hct MCV MCH MCHC RDW Plt Count MPV Neutrophils % Lymphocytes % Monocytes % Eosinophils % Basophils % PT with INR INR Puncture Site ABG pH ABG pCO2 at Pt Temp ABG pO2 at Pt Temp ABG HCO3 ABG O2 Sat (Measured) ABG O2 Content ABG Base Excess Timmy Test O2 Delivery Device Oxygen Flow Rate PEEP Sodium 142 Potassium 3.7 Chloride 108 H Carbon Dioxide 27 Anion Gap 7 L BUN 13 Creatinine < 0.2 L Creat Clearance w eGFR > 60 POC Glucometer Random Glucose 107 H D Lactic Acid Calcium 8.7 Phosphorus 3.2 Magnesium 1.9 Total Bilirubin 1.8 H D Cancelled Direct Bilirubin 0.3 H Cancelled AST 13 L D Cancelled ALT 17 D Cancelled Alkaline Phosphatase 43 L Cancelled LD Total 138 Troponin I Cancelled Total Protein 6.5 Cancelled Albumin 2.8 L Cancelled Urine Color Urine Appearance Urine pH Ur Specific Ethel Urine Protein Urine Glucose (UA) Urine Ketones Urine Blood Urine Nitrite Urine Bilirubin Urine Urobilinogen Ur Leukocyte Esterase Stool Occult Blood Blood Type Antibody Screen Crossmatch Active Medications Generic Name Dose Route Start Last Admin Trade Name Freq PRN Reason Stop Dose Admin Al Hydroxide/Mg Hydroxide 5 ml 12/23/16 11:09 Mylanta Oral Suspension - PEG ASDIR PRN DYSPEPSIA Albuterol Sulfate 1 amp 12/23/16 11:09 Ventolin 0.083% Nebulizer Soln - NEB Q4H PRN SHORT OF BREATH/WHEEZING Atenolol 25 mg 12/22/16 15:30 12/23/16 11:12 Tenormin - GT 25 mg DAILY [facility] Administration Baclofen 10 mg 12/23/16 14:00 12/26/16 06:43 Lioresal - PEG Not Given TID [facility] Bisacodyl 10 mg 12/23/16 11:09 Dulcolax Suppository - RC DAILY PRN CONSTIPATION Calcium Carbonate/Cholecalciferol 1 tab 12/23/16 14:00 12/26/16 06:44 Os-Gerald 500+D - PEG Not Given TID [facility] Ferrous Sulfate 300 mg 12/24/16 10:45 12/25/16 09:41 Feosol GT 300 mg DAILY [facility] Administration Fluticasone Propionate 1 spray 12/23/16 11:15 12/25/16 09:43 Flonase - NS 1 spray DAILY [facility] Administration Heparin Sodium (Porcine) 5,000 unit 12/22/16 14:00 12/26/16 06:51 Heparin - SQ 5,000 unit TID [facility] Administration Amino Acids 1,000 mls @ 42 mls/hr 12/20/16 17:45 12/24/16 18:48 Clinimix - IV Not Given Q24H [facility] Dextrose/Sodium Chloride 1,000 mls @ 83 mls/hr 12/25/16 19:30 12/25/16 22:30 D5-Ns - IV 83 mls/hr ASDIR [facility] Administration Lactobacillus Acidophilus 1 tab 12/23/16 16:28 12/25/16 23:01 Bacid - PEG 1 tab BID [facility] Administration Levetiracetam 500 mg 12/23/16 22:00 12/25/16 23:02 Keppra Oral Solution - GT 500 mg BID [facility] Administration Metoclopramide HCl 5 mg 12/23/16 11:15 12/25/16 23:06 Reglan Oral Solution - PEG 5 mg BID [facility] Administration Non-Formulary Medication 4 mg 12/23/16 14:00 12/26/16 06:44 Tiagabine Hcl [Gabitril] PEG Not Given TID [facility] Non-Formulary Medication 3 mg 12/26/16 08:24 Tizanidine Hcl [Tizanidine Hcl] PEG QID [facility] Potassium Chloride 10 meq 12/23/16 12:45 12/25/16 09:41 Potassium Chloride Oral Liquid PEG 10 meq DAILY [facility] Administration Simethicone 40 mg 12/23/16 12:00 12/26/16 06:42 Mylicon Liquid - GT Not Given Q6HPO [facility] Sucralfate 1 gm 12/23/16 11:15 12/25/16 22:00 Carafate Oral Suspension - PEG Not Given BID [facility] ASSESSMENT/PLAN: 36 year-old male [place] resident, with congenital quadriplegia, general convulsive epilepsy, profound MR, monocular extropia, nonverbal, and severe mental deficits. Admitted for suspected abdominal infection and possible bowel perforation from G/J tube. Abdominal infection, resolved --on admission initial WBC 20k, WBC normalized 12/19 --afebrile throughout hospital stay to date --initial imaging suggested a possible bowel perforation but this was subsequently ruled out by Dr. Rausch in two flouroscopic exams and susequent CT imaging --completed course of Zosyn Seizure disorder --no seizure activity observed --continue meds Hypertension --became markedly hypotensive today, BP improved with 2.5L of fluid resuscitation --administer anti-hypertensives via NGT Bradycardia --transfer to ICU, telemetry monitoring Functional quadriplegia --dependent for all ADLs Visit type - Emergency Visit Emergency Visit: Yes ED Registration Date: 12/17/16 Care time: The patient presented to the Emergency Department on the above date and was hospitalized for further evaluation of their emergent condition. - New Patient This patient is new to me today: No - Critical Care Critical Care patient: Yes Total Critical Care Time (in minutes): 180 Critical Care Statement: The care of this patient involved high complexity decision making to prevent further life threatening deterioration of the patient 's condition and/or to evaluate & treat vital organ system(s) failure or risk of failure.
[2016-12-26] MEDS ORDERED: PT OWN MED DRAWER 7, Y5N ONE ×5 (10:35→23:11)
[2016-12-26] MEDS: SUCRALFATE 1 GM/10 ML UNIT DOSE CUPS PEG SCH ×2 (10:44→22:49)
[2016-12-26] MEDS: LACTOBACILLUS ACIDOPHILUS 1 EACH TAB (FP) PEG SCH ×2 (10:44→22:47)
[2016-12-26] MEDS: POTASSIUM CHLORIDE ORAL LIQUID 20 MEQ/15 ML PEG SCH (10:48)
[2016-12-26] MEDS: FERROUS SO4 300 MG/5 ML ORAL SOLN UNIT DOSE CUPS GT SCH (10:48)
[2016-12-26] MEDS: levETIRAcetam 500 MG/5 ML ORAL SOLUTION (UNIT-DOSE CUPS) GT SCH ×2 (10:48→22:52)
[2016-12-26] MEDS: METOCLOPRAMIDE HCL 5 MG/5 ML UNIT DOSE CUP PEG SCH ×2 (10:49→22:52)
[2016-12-26] MEDS ORDERED: METOPROLOL TARTRATE 5 MG/5 ML VIAL IVPUSH ONE (11:07)
--- NOTE | 2016-12-26 11:24 | RAPID ---
Physical Examination Vital Signs: Vital Signs Temperature 98.2 F 12/26/16 10:00 Pulse Rate 95 H 12/26/16 10:43 Respiratory Rate 23 12/26/16 10:00 Blood Pressure 179/89 12/26/16 10:00 O2 Sat by Pulse Oximetry (%) 99 12/26/16 10:43 Labs: CBC, BMP 12/26/16 05:00 12/26/16 05:00
[2016-12-26] MEDS: METOPROLOL TARTRATE 5 MG/5 ML VIAL IVPUSH SCH ×2 (11:35→11:44)
--- NOTE | 2016-12-26 11:53 | PN ---
Teaching Attending Note Name of Resident: Cole Araiza ATTENDING PHYSICIAN STATEMENT I saw and evaluated the patient. I reviewed the resident's note and discussed the case with the resident. I agree with the resident's findings and plan as documented. SUBJECTIVE: Patient seen and examined in the ICU. 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 Hemodynamics stable overnight. For J tube replacement by IR. Intake & Output 12/23/16 12/24/16 12/25/16 12/26/16 23:59 23:59 23:59 23:59 Intake Total 1440 716 842 8335.5 Output Total 100 300 0 350 Balance 1340 390 075 4779.5 Weight 88 lb 5 oz 86 lb 87 lb 6 oz Last Vital Signs Temp Pulse Resp BP Pulse Ox 98.2 F 90 23 183/97 99 12/26/16 10:00 12/26/16 11:26 12/26/16 10:00 12/26/16 11:26 12/26/16 10:43 Active Medications Al Hydroxide/Mg Hydroxide (Mylanta Oral Suspension -) 5 ml PEG ASDIR PRN PRN Reason: DYSPEPSIA Albuterol Sulfate (Ventolin 0.083% Nebulizer Soln -) 1 amp NEB Q4H PRN PRN Reason: SHORT OF BREATH/WHEEZING Atenolol (Tenormin -) 25 mg GT DAILY [facility] Last Admin: 12/23/16 11:12 Dose: 25 mg Baclofen (Lioresal -) 10 mg PEG TID [facility] Last Admin: 12/26/16 06:43 Dose: Not Given Bisacodyl (Dulcolax Suppository -) 10 mg RC DAILY PRN PRN Reason: CONSTIPATION Calcium Carbonate/Cholecalciferol (Os-Gerald 500+D -) 1 tab PEG TID [facility] Last Admin: 12/26/16 06:44 Dose: Not Given Ferrous Sulfate (Feosol) 300 mg GT DAILY [facility] Last Admin: 12/26/16 10:48 Dose: 300 mg Fluticasone Propionate (Flonase -) 1 spray NS DAILY [facility] Last Admin: 12/25/16 09:43 Dose: 1 spray Heparin Sodium (Porcine) (Heparin -) 5,000 unit SQ TID [facility] Last Admin: 12/26/16 06:51 Dose: 5,000 unit Amino Acids (Clinimix -) 1,000 mls @ 42 mls/hr IV Q24H [facility] Last Admin: 12/24/16 18:48 Dose: Not Given Dextrose/Sodium Chloride (D5-Ns -) 1,000 mls @ 83 mls/hr IV ASDIR [facility] Last Admin: 12/25/16 22:30 Dose: 83 mls/hr Lactobacillus Acidophilus (Bacid -) 1 tab PEG BID [facility] Last Admin: 12/26/16 10:44 Dose: 1 tab Levetiracetam (Keppra Oral Solution -) 500 mg GT BID [facility] Last Admin: 12/26/16 10:48 Dose: 500 mg Metoclopramide HCl (Reglan Oral Solution -) 5 mg PEG BID [facility] Last Admin: 12/26/16 10:49 Dose: 5 mg Non-Formulary Medication (Tiagabine Hcl [Gabitril]) 4 mg PEG TID [facility] Last Admin: 12/26/16 06:44 Dose: Not Given Non-Formulary Medication (Tizanidine Hcl [Tizanidine Hcl]) 3 mg PEG QID [facility] Potassium Chloride (Potassium Chloride Oral Liquid) 10 meq PEG DAILY [facility] Last Admin: 12/26/16 10:48 Dose: 10 meq Simethicone (Mylicon Liquid -) 40 mg GT Q6HPO [facility] Last Admin: 12/26/16 06:42 Dose: Not Given Sucralfate (Carafate Oral Suspension -) 1 gm PEG BID [facility] Last Admin: 12/26/16 10:44 Dose: 1 gm Gen: NAD at rest, awake Heart: RRR Lung: decreased breath sounds at the bases Abd: soft, +enterocutaneous fistula Ext: no edema, contracted ASSESSMENT AND PLAN: Resolved Hypotension Dislodged J tube Bowel Perforation Intra-Abdominal Collection/Abscess Mental Retardation Functional Quadriplegia - For J tube placement by IR - Off ABX coverage per ID - IVF - Replete lytes - Aspiration precautions - DVT prophylaxis - Aspiration precautions - Nutritional support Dr Irwin Critical care time spent in reviewing chart, evaluating patient and formulating plan - 36 minutes.
--- NOTE | 2016-12-26 12:03 | EKG ---
Test Reason : Blood Pressure : / mmHG Vent. Rate : 098 BPM Atrial Rate : 098 BPM P-R Int : 126 ms QRS Dur : 080 ms QT Int : 344 ms P-R-T Axes : 063 042 064 degrees QTc Int : 439 ms POOR DATA QUALITY, INTERPRETATION MAY BE ADVERSELY AFFECTED NORMAL SINUS RHYTHM POSSIBLE LEFT ATRIAL ENLARGEMENT NONSPECIFIC T WAVE ABNORMALITY ABNORMAL ECG Confirmed by MADELINE PADGETT MD ([id number]) on 12/26/2016 12:02:50 PM Referred By: LIZZETTE PATINO DR Confirmed By:MADELINE PADGETT MD
--- NOTE | 2016-12-26 12:04 | EKG ---
Test Reason : Blood Pressure : / mmHG Vent. Rate : 048 BPM Atrial Rate : 048 BPM P-R Int : 134 ms QRS Dur : 068 ms QT Int : 472 ms P-R-T Axes : 051 062 064 degrees QTc Int : 421 ms SINUS BRADYCARDIA NONSPECIFIC T WAVE ABNORMALITY Confirmed by MADELINE PADGETT MD ([id number]) on 12/26/2016 12:04:22 PM Referred By: VADIM Confirmed By:MADELINE PADGETT MD
--- NOTE | 2016-12-26 12:55 | PN ---
Progress Note, Physician History of Present Illness: The patient is back in ICU. RR for hypotension and bradycardia while on regular floor ready to be d/s 12/25/16. Noted to have drop in Hgb with negative NG lavage , no melena, hematochezia, hematemesis. 2 units of PBRBC given with current Hgb 10. No bleeding per stoma, or fistula. LDH normal, Direct biliruin is slightly elevated, haptoglobin pending. J-tube got dislodged while getting imaging done. To be replaced by IR this afternoon. CT a/p/c negative for acute, significant pathology. Currently and at the time of transfer to the ICU, hypertensive, afebrial. The patient appears comfortable, smiling. Mother at bedside. No bms since last night. - Current Medication List Current Medications: Active Medications Al Hydroxide/Mg Hydroxide (Mylanta Oral Suspension -) 5 ml PEG ASDIR PRN PRN Reason: DYSPEPSIA Albuterol Sulfate (Ventolin 0.083% Nebulizer Soln -) 1 amp NEB Q4H PRN PRN Reason: SHORT OF BREATH/WHEEZING Atenolol (Tenormin -) 25 mg GT DAILY [facility] Last Admin: 12/23/16 11:12 Dose: 25 mg Baclofen (Lioresal -) 10 mg PEG TID [facility] Last Admin: 12/26/16 06:43 Dose: Not Given Bisacodyl (Dulcolax Suppository -) 10 mg RC DAILY PRN PRN Reason: CONSTIPATION Calcium Carbonate/Cholecalciferol (Os-Gerald 500+D -) 1 tab PEG TID [facility] Last Admin: 12/26/16 06:44 Dose: Not Given Ferrous Sulfate (Feosol) 300 mg GT DAILY [facility] Last Admin: 12/26/16 10:48 Dose: 300 mg Fluticasone Propionate (Flonase -) 1 spray NS DAILY [facility] Last Admin: 12/25/16 09:43 Dose: 1 spray Heparin Sodium (Porcine) (Heparin -) 5,000 unit SQ TID [facility] Last Admin: 12/26/16 06:51 Dose: 5,000 unit Amino Acids (Clinimix -) 1,000 mls @ 42 mls/hr IV Q24H [facility] Last Admin: 12/24/16 18:48 Dose: Not Given Dextrose/Sodium Chloride (D5-Ns -) 1,000 mls @ 83 mls/hr IV ASDIR [facility] Last Admin: 12/25/16 22:30 Dose: 83 mls/hr Lactobacillus Acidophilus (Bacid -) 1 tab PEG BID [facility] Last Admin: 12/26/16 10:44 Dose: 1 tab Levetiracetam (Keppra Oral Solution -) 500 mg GT BID [facility] Last Admin: 12/26/16 10:48 Dose: 500 mg Metoclopramide HCl (Reglan Oral Solution -) 5 mg PEG BID [facility] Last Admin: 12/26/16 10:49 Dose: 5 mg Non-Formulary Medication (Tiagabine Hcl [Gabitril]) 4 mg PEG TID [facility] Last Admin: 12/26/16 06:44 Dose: Not Given Non-Formulary Medication (Tizanidine Hcl [Tizanidine Hcl]) 3 mg PEG QID [facility] Potassium Chloride (Potassium Chloride Oral Liquid) 10 meq PEG DAILY [facility] Last Admin: 12/26/16 10:48 Dose: 10 meq Simethicone (Mylicon Liquid -) 40 mg GT Q6HPO [facility] Last Admin: 12/26/16 12:37 Dose: Not Given Sucralfate (Carafate Oral Suspension -) 1 gm PEG BID [facility] Last Admin: 12/26/16 10:44 Dose: 1 gm - Objective Vital Signs: Vital Signs Temperature 98.2 F 12/26/16 10:00 Pulse Rate 88 12/26/16 11:44 Respiratory Rate 23 12/26/16 10:00 Blood Pressure 165/110 12/26/16 11:44 O2 Sat by Pulse Oximetry (%) 99 12/26/16 10:43 Constitutional: Yes: No Distress Eyes: Yes: Conjunctiva Clear Cardiovascular: Yes: Regular Rate and Rhythm. No: Bradycardia, Tachycardia Respiratory: Yes: Regular Gastrointestinal: Yes: Soft, Other (Normal color stoma with excoriated, discolored skin around it. Minimal clear fluid from fistula). No: Distention, Melena, Palpable Mass, Pulsatile Mass, Rectal Bleeding, Tenderness, Tenderness, Epigastrium, Tenderness, Rebound Integumentary: No: Jaundice Wound/Incision: Yes: Excoriated. No: Bleeding Labs: CBC, BMP 12/26/16 05:00 12/26/16 05:00 INR, PTT INR 1.37 (0.82-1.09) H 10/05/17 16:45 Current Medications Generic Name Dose Route Start Last Admin Trade Name Freq PRN Reason Stop Dose Admin Al Hydroxide/Mg Hydroxide 5 ml 12/23/16 11:09 Mylanta Oral Suspension - PEG ASDIR PRN DYSPEPSIA Albuterol Sulfate 1 amp 12/23/16 11:09 Ventolin 0.083% Nebulizer Soln - NEB Q4H PRN SHORT OF BREATH/WHEEZING Atenolol 25 mg 12/22/16 15:30 12/23/16 11:12 Tenormin - GT 25 mg DAILY [facility] Administration Baclofen 10 mg 12/23/16 14:00 12/26/16 06:43 Lioresal - PEG Not Given TID [facility] Bisacodyl 10 mg 12/23/16 11:09 Dulcolax Suppository - RC DAILY PRN CONSTIPATION Calcium Carbonate/Cholecalciferol 1 tab 12/23/16 14:00 12/26/16 06:44 Os-Gerald 500+D - PEG Not Given TID [facility] Ferrous Sulfate 300 mg 12/24/16 10:45 12/26/16 10:48 Feosol GT 300 mg DAILY [facility] Administration Fluticasone Propionate 1 spray 12/23/16 11:15 12/25/16 09:43 Flonase - NS 1 spray DAILY [facility] Administration Heparin Sodium (Porcine) 5,000 unit 12/22/16 14:00 12/26/16 06:51 Heparin - SQ 5,000 unit TID [facility] Administration Amino Acids 1,000 mls @ 42 mls/hr 12/20/16 17:45 12/24/16 18:48 Clinimix - IV Not Given Q24H [facility] Dextrose/Sodium Chloride 1,000 mls @ 83 mls/hr 12/25/16 19:30 12/25/16 22:30 D5-Ns - IV 83 mls/hr ASDIR [facility] Administration Lactobacillus Acidophilus 1 tab 12/23/16 16:28 12/26/16 10:44 Bacid - PEG 1 tab BID [facility] Administration Levetiracetam 500 mg 12/23/16 22:00 12/26/16 10:48 Keppra Oral Solution - GT 500 mg BID [facility] Administration Metoclopramide HCl 5 mg 12/23/16 11:15 12/26/16 10:49 Reglan Oral Solution - PEG 5 mg BID [facility] Administration Non-Formulary Medication 4 mg 12/23/16 14:00 12/26/16 06:44 Tiagabine Hcl [Gabitril] PEG Not Given TID [facility] Non-Formulary Medication 3 mg 12/26/16 08:24 Tizanidine Hcl [Tizanidine Hcl] PEG QID [facility] Potassium Chloride 10 meq 12/23/16 12:45 12/26/16 10:48 Potassium Chloride Oral Liquid PEG 10 meq DAILY [facility] Administration Simethicone 40 mg 12/23/16 12:00 12/26/16 12:37 Mylicon Liquid - GT Not Given Q6HPO [facility] Sucralfate 1 gm 12/23/16 11:15 12/26/16 10:44 Carafate Oral Suspension - PEG 1 gm BID [facility] Administration Laboratory Results - last 24 hr 12/25/16 12/25/16 12/25/16 15:58 16:15 16:45 WBC 4.3 RBC 3.13 L Hgb 7.3 L D Hct 22.7 L MCV 72.6 L MCH 23.4 L MCHC 32.3 RDW 16.2 H Plt Count 210 MPV 6.8 L Neutrophils % 57.6 Lymphocytes % 29.0 Monocytes % 10.6 H Eosinophils % 1.9 Basophils % 0.9 PT with INR INR Puncture Site Left radial ABG pH 7.39 ABG pCO2 at Pt Temp 48.8 H ABG pO2 at Pt Temp 149.0 H ABG HCO3 29.0 H ABG O2 Sat (Measured) 99.2 H ABG O2 Content 10.1 L ABG Base Excess 4.2 H Timmy Test Positive O2 Delivery Device Nasal Oxygen Flow Rate Yes PEEP 0.0 Sodium Potassium Chloride Carbon Dioxide Anion Gap BUN Creatinine Creat Clearance w eGFR POC Glucometer 147 Random Glucose Lactic Acid Calcium Phosphorus Magnesium Total Bilirubin Direct Bilirubin AST ALT Alkaline Phosphatase LD Total Troponin I Total Protein Albumin Urine Color Urine Appearance Urine pH Ur Specific [place] Urine Protein Urine Glucose (UA) Urine Ketones Urine Blood Urine Nitrite Urine Bilirubin Urine Urobilinogen Ur Leukocyte Esterase Stool Occult Blood Blood Type Antibody Screen Crossmatch 12/25/16 12/25/16 12/25/16 16:45 16:45 16:45 WBC RBC Hgb Hct MCV MCH MCHC RDW Plt Count MPV Neutrophils % Lymphocytes % Monocytes % Eosinophils % Basophils % PT with INR 15.20 H INR 1.37 H Puncture Site ABG pH ABG pCO2 at Pt Temp ABG pO2 at Pt Temp ABG HCO3 ABG O2 Sat (Measured) ABG O2 Content ABG Base Excess Timmy Test O2 Delivery Device Oxygen Flow Rate PEEP Sodium 140 Potassium 3.7 Chloride 105 Carbon Dioxide 29 Anion Gap 6 L BUN 13 Creatinine 0.2 L Creat Clearance w eGFR > 60 POC Glucometer Random Glucose 135 H D Lactic Acid 0.4 Calcium 8.4 L Phosphorus 3.0 Magnesium 1.9 Total Bilirubin 0.3 D Direct Bilirubin AST 8 L ALT 14 Alkaline Phosphatase 38 L LD Total Troponin I Total Protein 6.0 L Albumin 2.5 L Urine Color Urine Appearance Urine pH Ur Specific [place] Urine Protein Urine Glucose (UA) Urine Ketones Urine Blood Urine Nitrite Urine Bilirubin Urine Urobilinogen Ur Leukocyte Esterase Stool Occult Blood Blood Type Antibody Screen Crossmatch 12/25/16 12/25/16 12/25/16 16:45 16:45 19:30 WBC RBC Hgb Hct MCV MCH MCHC RDW Plt Count MPV Neutrophils % Lymphocytes % Monocytes % Eosinophils % Basophils % PT with INR INR Puncture Site ABG pH ABG pCO2 at Pt Temp ABG pO2 at Pt Temp ABG HCO3 ABG O2 Sat (Measured) ABG O2 Content ABG Base Excess Timmy Test O2 Delivery Device Oxygen Flow Rate PEEP Sodium Potassium Chloride Carbon Dioxide Anion Gap BUN Creatinine Creat Clearance w eGFR POC Glucometer Random Glucose Lactic Acid Calcium Phosphorus Magnesium Total Bilirubin Direct Bilirubin AST ALT Alkaline Phosphatase LD Total Troponin I < 0.02 Total Protein Albumin Urine Color Urine Appearance Urine pH Ur Specific [place] Urine Protein Urine Glucose (UA) Urine Ketones Urine Blood Urine Nitrite Urine Bilirubin Urine Urobilinogen Ur Leukocyte Esterase Stool Occult Blood Negative Blood Type A POSITIVE Antibody Screen Negative Crossmatch See Detail 12/25/16 12/26/16 12/26/16 21:20 01:45 05:00 WBC 6.6 D 6.8 RBC 4.84 D 4.07 Hgb 12.2 D 10.4 L D Hct 37.5 D 30.9 L D MCV 77.5 L 75.8 L MCH 25.2 L 25.6 L MCHC 32.6 33.8 RDW 18.2 H D 17.8 H Plt Count 238 242 MPV 7.4 L 7.2 L Neutrophils % Lymphocytes % Monocytes % Eosinophils % Basophils % PT with INR INR Puncture Site ABG pH ABG pCO2 at Pt Temp ABG pO2 at Pt Temp ABG HCO3 ABG O2 Sat (Measured) ABG O2 Content ABG Base Excess Timmy Test O2 Delivery Device Oxygen Flow Rate PEEP Sodium Potassium Chloride Carbon Dioxide Anion Gap BUN Creatinine Creat Clearance w eGFR POC Glucometer Random Glucose Lactic Acid Calcium Phosphorus Magnesium Total Bilirubin Direct Bilirubin AST ALT Alkaline Phosphatase LD Total Troponin I Total Protein Albumin Urine Color [place] Urine Appearance Cloudy Urine pH 7.0 Ur Specific [place] 1.015 Urine Protein Negative Urine Glucose (UA) Negative Urine Ketones Negative Urine Blood Negative Urine Nitrite Negative Urine Bilirubin Negative Urine Urobilinogen Negative Ur Leukocyte Esterase Negative Stool Occult Blood Blood Type Antibody Screen Crossmatch 12/26/16 12/26/16 12/26/16 05:00 05:00 05:00 WBC RBC Hgb Hct MCV MCH MCHC RDW Plt Count MPV Neutrophils % Lymphocytes % Monocytes % Eosinophils % Basophils % PT with INR INR Puncture Site ABG pH ABG pCO2 at Pt Temp ABG pO2 at Pt Temp ABG HCO3 ABG O2 Sat (Measured) ABG O2 Content ABG Base Excess Timmy Test O2 Delivery Device Oxygen Flow Rate PEEP Sodium 142 Potassium 3.7 Chloride 108 H Carbon Dioxide 27 Anion Gap 7 L BUN 13 Creatinine < 0.2 L Creat Clearance w eGFR > 60 POC Glucometer Random Glucose 107 H D Lactic Acid Calcium 8.7 Phosphorus 3.2 Magnesium 1.9 Total Bilirubin 1.8 H D Cancelled Direct Bilirubin 0.3 H Cancelled AST 13 L D Cancelled ALT 17 D Cancelled Alkaline Phosphatase 43 L Cancelled LD Total 138 Cancelled Troponin I Total Protein 6.5 Cancelled Albumin 2.8 L Cancelled Urine Color Urine Appearance Urine pH Ur Specific [place] Urine Protein Urine Glucose (UA) Urine Ketones Urine Blood Urine Nitrite Urine Bilirubin Urine Urobilinogen Ur Leukocyte Esterase Stool Occult Blood Blood Type Antibody Screen Crossmatch 12/26/16 05:00 WBC RBC Hgb Hct MCV MCH MCHC RDW Plt Count MPV Neutrophils % Lymphocytes % Monocytes % Eosinophils % Basophils % PT with INR INR Puncture Site ABG pH ABG pCO2 at Pt Temp ABG pO2 at Pt Temp ABG HCO3 ABG O2 Sat (Measured) ABG O2 Content ABG Base Excess Timmy Test O2 Delivery Device Oxygen Flow Rate PEEP Sodium Potassium Chloride Carbon Dioxide Anion Gap BUN Creatinine Creat Clearance w eGFR POC Glucometer Random Glucose Lactic Acid Calcium Phosphorus Magnesium Total Bilirubin Direct Bilirubin AST ALT Alkaline Phosphatase LD Total Troponin I Cancelled Total Protein Albumin Urine Color Urine Appearance Urine pH Ur Specific [place] Urine Protein Urine Glucose (UA) Urine Ketones Urine Blood Urine Nitrite Urine Bilirubin Urine Urobilinogen Ur Leukocyte Esterase Stool Occult Blood Blood Type Antibody Screen Crossmatch Microbiology 12/20/16 10:35 Rectal Swab VRE Culture - Final Vanco Resistant Enterococcus 12/17/16 05:49 Blood - Peripheral Venous Blood Culture - Final NO GROWTH AFTER 5 DAYS INCUBATION 12/17/16 05:49 Blood - Peripheral Venous Blood Culture - Final NO GROWTH AFTER 5 DAYS INCUBATION 12/17/16 05:20 Abdomen Gram Stain - Final 12/17/16 05:20 Abdomen Wound Culture - Final NO GROWTH AFTER 48 HOURS INCUBATION 12/16/16 23:00 Urine - Urine - Catheterized Urine Culture - Final NO GROWTH OBTAINED Active Orders - 24 Hr 12/25/16 16:11 Rectal Temp NOW 12/25/16 16:13 Sam Catheter, Daily Care DAILY 12/25/16 16:30 DNR [Resuscitation Status] Q7D 12/25/16 16:45 PRBC [PACKED CELLS] Stat TYPE AND SCREEN Stat BLOOD CULTURE Stat 12/25/16 18:13 NG/OG Insert/Management NOW 12/25/16 19:30 Dextrose 5%-Normal Saline [D5-Ns -] 1,000 ml IV ASDIR 12/25/16 21:20 Urine Culture [URINE CULTURE] Stat 12/25/16 23:00 SPUTUM CULTURE Stat 12/25/16 23:21 Multivit-Minerals [Certavite-Antioxidant Liquid] 15 ml GT DAILY 12/26/16 Transfer Order Routine 12/26/16 05:00 HAPTOGLOBIN Stat 12/26/16 08:24 Tizanidine HCl [Tizanidine HCl] 3 mg PEG QID 12/26/16 11:08 PEG/GT Instruction DAILY 12/26/16 11:09 Missing Dose Routine 12/26/16 11:13 Physician Consultation Physician 1 12/26/16 11:14 Reminder: new phy cons See Order 12/26/16 11:50 G-J TUBE REPLACE [RADS] Urgent 12/27/16 10:00 EKG [ELECTROCARDIOGRAM] [CARD] DAILY 12/28/16 10:00 EKG [ELECTROCARDIOGRAM] [CARD] DAILY Vital Signs (72 hours) 12/23/16 12/23/16 12/23/16 15:34 16:59 18:15 Temperature 98.3 F 97.7 F Pulse Rate 73 67 67 Respiratory 20 18 20 Rate Blood Pressure 128/81 88/57 88/53 O2 Sat by Pulse Oximetry (%) 12/23/16 12/23/16 12/23/16 19:03 20:00 21:00 Temperature 97.9 F Pulse Rate 75 70 Respiratory 20 20 20 Rate Blood Pressure 104/65 88/58 O2 Sat by Pulse Oximetry (%) 12/24/16 12/24/16 12/24/16 08:02 09:00 10:00 Temperature 97.9 F 97.6 F Pulse Rate 94 H 90 Respiratory 20 18 18 Rate Blood Pressure 100/80 150/83 O2 Sat by Pulse Oximetry (%) 12/24/16 12/24/16 12/24/16 12:09 15:13 17:20 Temperature 98.5 F 98.5 F 99.5 F Pulse Rate 88 99 H 110 H Respiratory 24 20 22 Rate Blood Pressure 106/60 120/86 141/90 O2 Sat by Pulse Oximetry (%) 12/24/16 12/24/16 12/24/16 20:52 20:53 21:00 Temperature 98.9 F Pulse Rate 108 H Respiratory 24 24 Rate Blood Pressure 144/83 O2 Sat by Pulse 99 99 Oximetry (%) 12/25/16 12/25/16 12/25/16 06:58 09:00 10:00 Temperature 98.1 F 98.4 F Pulse Rate 103 H 104 H Respiratory 20 20 20 Rate Blood Pressure 117/74 130/80 O2 Sat by Pulse 99 99 Oximetry (%) 12/25/16 12/25/16 12/25/16 15:24 18:20 19:15 Temperature 98.5 F 97.2 F L 97.4 F L Pulse Rate 94 H 46 L 72 Respiratory 18 12 12 Rate Blood Pressure 119/74 116/58 125/74 O2 Sat by Pulse Oximetry (%) 12/25/16 12/25/16 12/26/16 20:59 22:00 00:00 Temperature Pulse Rate 95 H 10 L Respiratory 16 25 H Rate Blood Pressure 157/95 134/90 O2 Sat by Pulse 100 Oximetry (%) 12/26/16 12/26/16 12/26/16 02:00 08:00 10:00 Temperature 98.7 F 98.6 F 98.2 F Pulse Rate 94 H 93 H 93 H Respiratory 19 23 23 Rate Blood Pressure 160/97 175/89 179/89 O2 Sat by Pulse 100 Oximetry (%) 12/26/16 12/26/16 12/26/16 10:43 11:26 11:44 Temperature Pulse Rate 95 H 90 88 Respiratory Rate Blood Pressure 183/97 165/110 O2 Sat by Pulse 99 Oximetry (%) - ....Imaging Cat Scan: Report Reviewed Problem List - Problems (1) Anemia Assessment/Plan: Comformable and not in distress. Hypochromic, macrocytic with normal PLT, LDH, BUN. Acutely elevated indirect bili. No signs of recent, or ongoing acute GI blood loss. Hemodynamics stable Intravacular hemolysis is a possibility (acutely elevated direct bili., haptoglobin pending) Septic work up in progress Observe for signs of bleeding Will follow septic work up results, haptoglobin level, and monitor Hgb, chemistry No GI intervention needed at this time. Discussed with pt's mother and nurse. Code(s): D64.9 - ANEMIA, UNSPECIFIED Qualifiers: Anemia type: acquired or hereditary hemolytic anemia Hemolytic anemia type: acquired, nonautoimmune, other Qualified Code(s): D59.4 - Other nonautoimmune hemolytic anemias; D59.4 - Other nonautoimmune hemolytic anemias; D59.4 - Other nonautoimmune hemolytic anemias; D59.4 - Other nonautoimmune hemolytic anemias (2) Perforated small intestine Code(s): K63.1 - PERFORATION OF INTESTINE (NONTRAUMATIC)
--- NOTE | 2016-12-26 13:18 | PN ---
Physical Exam: SUBJECTIVE: 36 yo M [place] resident with congenital quadraplegia, general convulsive epilipsy, Monocular extropia, and MR who is NV, and non commmunicative at baseline with recent ICU admission ( 12/17 ) with septic shock and suspicion of bowel perforation post J tube placement through jejunal wall and LLQ enterocutaneous fistula, and pelvic fluid collection. He was treated in ICU with 6 day course of Zosyn with resolution of fevers and leukocytosis with discharge on 12/22. Pt. arrived to ICU (12/25) following hypotension and bradycardia on the regular floors awaiting D/C; BP 70/40 with HR of 50s. He was rapid repsonded and given 2.5 L of NS with improvement in BP to 90/50. also given atropine with improvement in bradycardia. He was then transferred back to ICU for further management. Of note pt's Hgb today 12.2 (admission Hgb 10.3 with a gradual decline over the week). Patient with no obvious signs of bleeding following h/o guiac positive stool. Given [address] in ED[address] CT A/P negative for any acute pathology. While undergoing CT A/P Peg tube was displaced and stoma is exposed with no active bleeding. Mother is at bedside. GI /IR has been consulted for PEG tube replacement. Patient smiling, and resting comfortably in bed and able to track across room. Per nursing staff patient has been stable this AM,in NAD. Patient AF and HS. OBJECTIVE: Vital Signs Period Temp Pulse Resp BP Sys/Bruce Pulse Ox Last 24 Hr 97.2 F-98.7 F 10-95 12-25 116-183/58-110 99-100 GENERAL: The patient is awake, alert, and fully oriented, in no acute distress. HEAD: Normal with no signs of trauma. EYES: PERRL, extraocular movements intact, sclera anicteric, conjunctiva clear. No ptosis. NECK: Trachea midline, full range of motion, supple. LUNGS: Breath sounds equal, clear to auscultation bilaterally, no wheezes, no crackles, no accessory muscle use. HEART: Regular rate and rhythm, S1, S2 without murmur, rub or gallop. ABDOMEN: Soft, NDS, and NBS. Left sided stoma: Vance moist, normal color stoma with excoriated, discolored skin around it. There is minimal fluid around stoma. Absent Melena, Palpable Mass, Pulsatile Mass, Rectal Bleeding, tenderness. rebound, no hepatosplenomegaly, no masses. EXTREMITIES: 2+ pulses, warm, well-perfused, no edema. PSYCH: Normal mood, normal affect. SKIN: Warm, dry, normal turgor, no rashes or lesions noted Laboratory Results - last 24 hr 12/25/16 12/25/16 12/25/16 15:58 16:15 16:45 WBC 4.3 RBC 3.13 L Hgb 7.3 L D Hct 22.7 L MCV 72.6 L MCH 23.4 L MCHC 32.3 RDW 16.2 H Plt Count 210 MPV 6.8 L Neutrophils % 57.6 Lymphocytes % 29.0 Monocytes % 10.6 H Eosinophils % 1.9 Basophils % 0.9 PT with INR INR Puncture Site Left radial ABG pH 7.39 ABG pCO2 at Pt Temp 48.8 H ABG pO2 at Pt Temp 149.0 H ABG HCO3 29.0 H ABG O2 Sat (Measured) 99.2 H ABG O2 Content 10.1 L ABG Base Excess 4.2 H Timmy Test Positive O2 Delivery Device Nasal Oxygen Flow Rate Yes PEEP 0.0 Sodium Potassium Chloride Carbon Dioxide Anion Gap BUN Creatinine Creat Clearance w eGFR POC Glucometer 147 Random Glucose Lactic Acid Calcium Phosphorus Magnesium Total Bilirubin Direct Bilirubin AST ALT Alkaline Phosphatase LD Total Troponin I Total Protein Albumin Urine Color Urine Appearance Urine pH Ur Specific [place] Urine Protein Urine Glucose (UA) Urine Ketones Urine Blood Urine Nitrite Urine Bilirubin Urine Urobilinogen Ur Leukocyte Esterase Stool Occult Blood Blood Type Antibody Screen Crossmatch 12/25/16 12/25/16 12/25/16 16:45 16:45 16:45 WBC RBC Hgb Hct MCV MCH MCHC RDW Plt Count MPV Neutrophils % Lymphocytes % Monocytes % Eosinophils % Basophils % PT with INR 15.20 H INR 1.37 H Puncture Site ABG pH ABG pCO2 at Pt Temp ABG pO2 at Pt Temp ABG HCO3 ABG O2 Sat (Measured) ABG O2 Content ABG Base Excess Timmy Test O2 Delivery Device Oxygen Flow Rate PEEP Sodium 140 Potassium 3.7 Chloride 105 Carbon Dioxide 29 Anion Gap 6 L BUN 13 Creatinine 0.2 L Creat Clearance w eGFR > 60 POC Glucometer Random Glucose 135 H D Lactic Acid 0.4 Calcium 8.4 L Phosphorus 3.0 Magnesium 1.9 Total Bilirubin 0.3 D Direct Bilirubin AST 8 L ALT 14 Alkaline Phosphatase 38 L LD Total Troponin I Total Protein 6.0 L Albumin 2.5 L Urine Color Urine Appearance Urine pH Ur Specific [place] Urine Protein Urine Glucose (UA) Urine Ketones Urine Blood Urine Nitrite Urine Bilirubin Urine Urobilinogen Ur Leukocyte Esterase Stool Occult Blood Blood Type Antibody Screen Crossmatch 12/25/16 12/25/16 12/25/16 16:45 16:45 19:30 WBC RBC Hgb Hct MCV MCH MCHC RDW Plt Count MPV Neutrophils % Lymphocytes % Monocytes % Eosinophils % Basophils % PT with INR INR Puncture Site ABG pH ABG pCO2 at Pt Temp ABG pO2 at Pt Temp ABG HCO3 ABG O2 Sat (Measured) ABG O2 Content ABG Base Excess Timmy Test O2 Delivery Device Oxygen Flow Rate PEEP Sodium Potassium Chloride Carbon Dioxide Anion Gap BUN Creatinine Creat Clearance w eGFR POC Glucometer Random Glucose Lactic Acid Calcium Phosphorus Magnesium Total Bilirubin Direct Bilirubin AST ALT Alkaline Phosphatase LD Total Troponin I < 0.02 Total Protein Albumin Urine Color Urine Appearance Urine pH Ur Specific [place] Urine Protein Urine Glucose (UA) Urine Ketones Urine Blood Urine Nitrite Urine Bilirubin Urine Urobilinogen Ur Leukocyte Esterase Stool Occult Blood Negative Blood Type A POSITIVE Antibody Screen Negative Crossmatch See Detail 12/25/16 12/26/16 12/26/16 21:20 01:45 05:00 WBC 6.6 D 6.8 RBC 4.84 D 4.07 Hgb 12.2 D 10.4 L D Hct 37.5 D 30.9 L D MCV 77.5 L 75.8 L MCH 25.2 L 25.6 L MCHC 32.6 33.8 RDW 18.2 H D 17.8 H Plt Count 238 242 MPV 7.4 L 7.2 L Neutrophils % Lymphocytes % Monocytes % Eosinophils % Basophils % PT with INR INR Puncture Site ABG pH ABG pCO2 at Pt Temp ABG pO2 at Pt Temp ABG HCO3 ABG O2 Sat (Measured) ABG O2 Content ABG Base Excess Timmy Test O2 Delivery Device Oxygen Flow Rate PEEP Sodium Potassium Chloride Carbon Dioxide Anion Gap BUN Creatinine Creat Clearance w eGFR POC Glucometer Random Glucose Lactic Acid Calcium Phosphorus Magnesium Total Bilirubin Direct Bilirubin AST ALT Alkaline Phosphatase LD Total Troponin I Total Protein Albumin Urine Color [place] Urine Appearance Cloudy Urine pH 7.0 Ur Specific [place] 1.015 Urine Protein Negative Urine Glucose (UA) Negative Urine Ketones Negative Urine Blood Negative Urine Nitrite Negative Urine Bilirubin Negative Urine Urobilinogen Negative Ur Leukocyte Esterase Negative Stool Occult Blood Blood Type Antibody Screen Crossmatch 12/26/16 12/26/16 12/26/16 05:00 05:00 05:00 WBC RBC Hgb Hct MCV MCH MCHC RDW Plt Count MPV Neutrophils % Lymphocytes % Monocytes % Eosinophils % Basophils % PT with INR INR Puncture Site ABG pH ABG pCO2 at Pt Temp ABG pO2 at Pt Temp ABG HCO3 ABG O2 Sat (Measured) ABG O2 Content ABG Base Excess Timmy Test O2 Delivery Device Oxygen Flow Rate PEEP Sodium 142 Potassium 3.7 Chloride 108 H Carbon Dioxide 27 Anion Gap 7 L BUN 13 Creatinine < 0.2 L Creat Clearance w eGFR > 60 POC Glucometer Random Glucose 107 H D Lactic Acid Calcium 8.7 Phosphorus 3.2 Magnesium 1.9 Total Bilirubin 1.8 H D Cancelled Direct Bilirubin 0.3 H Cancelled AST 13 L D Cancelled ALT 17 D Cancelled Alkaline Phosphatase 43 L Cancelled LD Total 138 Cancelled Troponin I Total Protein 6.5 Cancelled Albumin 2.8 L Cancelled Urine Color Urine Appearance Urine pH Ur Specific [place] Urine Protein Urine Glucose (UA) Urine Ketones Urine Blood Urine Nitrite Urine Bilirubin Urine Urobilinogen Ur Leukocyte Esterase Stool Occult Blood Blood Type Antibody Screen Crossmatch 12/26/16 05:00 WBC RBC Hgb Hct MCV MCH MCHC RDW Plt Count MPV Neutrophils % Lymphocytes % Monocytes % Eosinophils % Basophils % PT with INR INR Puncture Site ABG pH ABG pCO2 at Pt Temp ABG pO2 at Pt Temp ABG HCO3 ABG O2 Sat (Measured) ABG O2 Content ABG Base Excess Timmy Test O2 Delivery Device Oxygen Flow Rate PEEP Sodium Potassium Chloride Carbon Dioxide Anion Gap BUN Creatinine Creat Clearance w eGFR POC Glucometer Random Glucose Lactic Acid Calcium Phosphorus Magnesium Total Bilirubin Direct Bilirubin AST ALT Alkaline Phosphatase LD Total Troponin I Cancelled Total Protein Albumin Urine Color Urine Appearance Urine pH Ur Specific [place] Urine Protein Urine Glucose (UA) Urine Ketones Urine Blood Urine Nitrite Urine Bilirubin Urine Urobilinogen Ur Leukocyte Esterase Stool Occult Blood Blood Type Antibody Screen Crossmatch Active Medications Generic Name Dose Route Start Last Admin Trade Name Freq PRN Reason Stop Dose Admin Al Hydroxide/Mg Hydroxide 5 ml 12/23/16 11:09 Mylanta Oral Suspension - PEG ASDIR PRN DYSPEPSIA Albuterol Sulfate 1 amp 12/23/16 11:09 Ventolin 0.083% Nebulizer Soln - NEB Q4H PRN SHORT OF BREATH/WHEEZING Atenolol 25 mg 12/22/16 15:30 12/23/16 11:12 Tenormin - GT 25 mg DAILY TOSIN Administration Baclofen 10 mg 12/23/16 14:00 12/26/16 06:43 Lioresal - PEG Not Given TID TOSIN Bisacodyl 10 mg 12/23/16 11:09 Dulcolax Suppository - RC DAILY PRN CONSTIPATION Calcium Carbonate/Cholecalciferol 1 tab 12/23/16 14:00 12/26/16 06:44 Os-Gerald 500+D - PEG Not Given TID TOSIN Ferrous Sulfate 300 mg 12/24/16 10:45 12/26/16 10:48 Feosol GT 300 mg DAILY TOSIN Administration Fluticasone Propionate 1 spray 12/23/16 11:15 12/25/16 09:43 Flonase - NS 1 spray DAILY TOSIN Administration Heparin Sodium (Porcine) 5,000 unit 12/22/16 14:00 12/26/16 06:51 Heparin - SQ 5,000 unit TID TOSIN Administration Amino Acids 1,000 mls @ 42 mls/hr 12/20/16 17:45 12/24/16 18:48 Clinimix - IV Not Given Q24H TOSIN Dextrose/Sodium Chloride 1,000 mls @ 83 mls/hr 12/25/16 19:30 12/25/16 22:30 D5-Ns - IV 83 mls/hr ASDIR TOSIN Administration Lactobacillus Acidophilus 1 tab 12/23/16 16:28 12/26/16 10:44 Bacid - PEG 1 tab BID TOSIN Administration Levetiracetam 500 mg 12/23/16 22:00 12/26/16 10:48 Keppra Oral Solution - GT 500 mg BID [facility]OSIN Administration Metoclopramide HCl 5 mg 12/23/16 11:15 12/26/16 10:49 Reglan Oral Solution - PEG 5 mg BID TOSIN Administration Non-Formulary Medication 4 mg 12/23/16 14:00 12/26/16 06:44 Tiagabine Hcl [Gabitril] PEG Not Given TID [facility]OSIN Non-Formulary Medication 3 mg 12/26/16 08:24 Tizanidine Hcl [Tizanidine Hcl] PEG QID [facility] Potassium Chloride 10 meq 12/23/16 12:45 12/26/16 10:48 Potassium Chloride Oral Liquid PEG 10 meq DAILY TOSIN Administration Simethicone 40 mg 12/23/16 12:00 12/26/16 12:37 Mylicon Liquid - GT Not Given Q6HPO [facility] Sucralfate 1 gm 12/23/16 11:15 12/26/16 10:44 Carafate Oral Suspension - PEG 1 gm BID TOSIN Administration ASSESSMENT/PLAN: 36 yo M [place] resident with congenital quadraplegia, general convulsive epilipsy, Monocular extropia, and MR who is NV, and non commmunicative at baseline with recent ICU admission ( 12/17 ) with septic shock and suspicion of bowel perforation post J tube placement through jejunal wall and LLQ enterocutaneous fistula, and pelvic fluid collection who is back in ICU following rapid response for hypotension and bradycardia and drop in Hgb with negative NG lavage. Neuro: General Convulsive Epilipsy - H/o congenital quadraplegia, , and monocular extropia. - Mental disability and nonverbal, non communicative at baseline. - Patient alert and tracking room appropriately Plan: -Keppra 500 mg GT BID Pulm: - Aspiration precautions Cardiac: - EKG reveals normal sinus rhythm, with left atrial enlargement, and nonspecific t wave abnormalities (12/25). - Echo Pending HTN: - Holding Atenolol d/t hypotension. Gastroenterology : Anemia:Hypochromic, macrocytic with normal PLT, LDH, BUN. Acutely elevated indirect bili. - No evidence of ongoing acute GI blood loss. Absent melena, hematochezia, hematemesis. - S/p 2 units of PBRBC. - Absent bleeding per stoma, or fistula. - HS and afebrile. Recently - LDH Nml. - Direct biliruin is slightly elevated, - Haptoglobin pending. - J-tube dislodged while obtainingt CT AP . - NG tube in place. - CT a/p/c negative for acute, significant pathology. Plan: - Interventional radiology PEG tube placement - Obtain consent prior to procedure from Mother. - Abdominal X ray - Observe for occult bleeding Sepsis: WBC 4.3-->6.8 Lactic acid 0.4 SBP 60s-80s ( 12/25 ) SBP curently 140s'-160s. Plan: - Monitor Hemoglobin - Trend lactate FEN: D5 NS, Lytes PRN, tube feeds PPx: Heparin 5000 U Dispo: transfer to Med/Surg Visit type - Emergency Visit Emergency Visit: Yes ED Registration Date: 12/17/16 Care time: The patient presented to the Emergency Department on the above date and was hospitalized for further evaluation of their emergent condition. - New Patient This patient is new to me today: Yes Date on this admission: 12/26/16 - Critical Care Critical Care patient: Yes Total Critical Care Time (in minutes): 35 Critical Care Statement: The care of this patient involved high complexity decision making to prevent further life threatening deterioration of the patient 's condition and/or to evaluate & treat vital organ system(s) failure or risk of failure.
--- NOTE | 2016-12-26 14:11 | PN ---
Physical Exam: SUBJECTIVE: Patient seen and examined at bedside. OBJECTIVE: Vital Signs Period Temp Pulse Resp BP Sys/Bruce Pulse Ox Last 24 Hr 97.2 F-98.7 F 10- 12-25 116-183/58-110 99-100 GENERAL/NEURO: The patient is awake, eyes open, back to baseline; smiles and vocalizes to verbal and tactile stimuli HEAD: Normal with no signs of trauma. EYES: PERRL, sclera anicteric, conjunctiva clear. No ptosis. LUNGS: Breath sounds equal, clear to auscultation bilaterally, no wheezes, no crackles, no accessory muscle use. HEART: Regular rate and rhythm, S1, S2 without murmur, rub or gallop. ABDOMEN: Soft, less distended; J/G tube out, stoma pink, fluid actively leaking from stoma; reapplied occlusive dressing, abdominal pads, abdominal binder EXTREMITIES: 2+ pulses, warm, well-perfused, no edema. Contracted. Laboratory Results - last 24 hr 12/25/16 12/25/16 12/25/16 15:58 16:15 16:45 WBC 4.3 RBC 3.13 L Hgb 7.3 L D Hct 22.7 L MCV 72.6 L MCH 23.4 L MCHC 32.3 RDW 16.2 H Plt Count 210 MPV 6.8 L Neutrophils % 57.6 Lymphocytes % 29.0 Monocytes % 10.6 H Eosinophils % 1.9 Basophils % 0.9 PT with INR INR Puncture Site Left radial ABG pH 7.39 ABG pCO2 at Pt Temp 48.8 H ABG pO2 at Pt Temp 149.0 H ABG HCO3 29.0 H ABG O2 Sat (Measured) 99.2 H ABG O2 Content 10.1 L ABG Base Excess 4.2 H Timmy Test Positive O2 Delivery Device Nasal Oxygen Flow Rate Yes PEEP 0.0 Sodium Potassium Chloride Carbon Dioxide Anion Gap BUN Creatinine Creat Clearance w eGFR POC Glucometer 147 Random Glucose Lactic Acid Calcium Phosphorus Magnesium Total Bilirubin Direct Bilirubin AST ALT Alkaline Phosphatase LD Total Troponin I Total Protein Albumin Urine Color Urine Appearance Urine pH Ur Specific [place] Urine Protein Urine Glucose (UA) Urine Ketones Urine Blood Urine Nitrite Urine Bilirubin Urine Urobilinogen Ur Leukocyte Esterase Stool Occult Blood Blood Type Antibody Screen Crossmatch 12/25/16 12/25/16 12/25/16 16:45 16:45 16:45 WBC RBC Hgb Hct MCV MCH MCHC RDW Plt Count MPV Neutrophils % Lymphocytes % Monocytes % Eosinophils % Basophils % PT with INR 15.20 H INR 1.37 H Puncture Site ABG pH ABG pCO2 at Pt Temp ABG pO2 at Pt Temp ABG HCO3 ABG O2 Sat (Measured) ABG O2 Content ABG Base Excess Timmy Test O2 Delivery Device Oxygen Flow Rate PEEP Sodium 140 Potassium 3.7 Chloride 105 Carbon Dioxide 29 Anion Gap 6 L BUN 13 Creatinine 0.2 L Creat Clearance w eGFR > 60 POC Glucometer Random Glucose 135 H D Lactic Acid 0.4 Calcium 8.4 L Phosphorus 3.0 Magnesium 1.9 Total Bilirubin 0.3 D Direct Bilirubin AST 8 L ALT 14 Alkaline Phosphatase 38 L LD Total Troponin I Total Protein 6.0 L Albumin 2.5 L Urine Color Urine Appearance Urine pH Ur Specific [place] Urine Protein Urine Glucose (UA) Urine Ketones Urine Blood Urine Nitrite Urine Bilirubin Urine Urobilinogen Ur Leukocyte Esterase Stool Occult Blood Blood Type Antibody Screen Crossmatch 12/25/16 12/25/16 12/25/16 16:45 16:45 19:30 WBC RBC Hgb Hct MCV MCH MCHC RDW Plt Count MPV Neutrophils % Lymphocytes % Monocytes % Eosinophils % Basophils % PT with INR INR Puncture Site ABG pH ABG pCO2 at Pt Temp ABG pO2 at Pt Temp ABG HCO3 ABG O2 Sat (Measured) ABG O2 Content ABG Base Excess Timmy Test O2 Delivery Device Oxygen Flow Rate PEEP Sodium Potassium Chloride Carbon Dioxide Anion Gap BUN Creatinine Creat Clearance w eGFR POC Glucometer Random Glucose Lactic Acid Calcium Phosphorus Magnesium Total Bilirubin Direct Bilirubin AST ALT Alkaline Phosphatase LD Total Troponin I < 0.02 Total Protein Albumin Urine Color Urine Appearance Urine pH Ur Specific [place] Urine Protein Urine Glucose (UA) Urine Ketones Urine Blood Urine Nitrite Urine Bilirubin Urine Urobilinogen Ur Leukocyte Esterase Stool Occult Blood Negative Blood Type A POSITIVE Antibody Screen Negative Crossmatch See Detail 12/25/16 12/26/16 12/26/16 21:20 01:45 05:00 WBC 6.6 D 6.8 RBC 4.84 D 4.07 Hgb 12.2 D 10.4 L D Hct 37.5 D 30.9 L D MCV 77.5 L 75.8 L MCH 25.2 L 25.6 L MCHC 32.6 33.8 RDW 18.2 H D 17.8 H Plt Count 238 242 MPV 7.4 L 7.2 L Neutrophils % Lymphocytes % Monocytes % Eosinophils % Basophils % PT with INR INR Puncture Site ABG pH ABG pCO2 at Pt Temp ABG pO2 at Pt Temp ABG HCO3 ABG O2 Sat (Measured) ABG O2 Content ABG Base Excess Timmy Test O2 Delivery Device Oxygen Flow Rate PEEP Sodium Potassium Chloride Carbon Dioxide Anion Gap BUN Creatinine Creat Clearance w eGFR POC Glucometer Random Glucose Lactic Acid Calcium Phosphorus Magnesium Total Bilirubin Direct Bilirubin AST ALT Alkaline Phosphatase LD Total Troponin I Total Protein Albumin Urine Color [place] Urine Appearance Cloudy Urine pH 7.0 Ur Specific [place] 1.015 Urine Protein Negative Urine Glucose (UA) Negative Urine Ketones Negative Urine Blood Negative Urine Nitrite Negative Urine Bilirubin Negative Urine Urobilinogen Negative Ur Leukocyte Esterase Negative Stool Occult Blood Blood Type Antibody Screen Crossmatch 12/26/16 12/26/16 12/26/16 05:00 05:00 05:00 WBC RBC Hgb Hct MCV MCH MCHC RDW Plt Count MPV Neutrophils % Lymphocytes % Monocytes % Eosinophils % Basophils % PT with INR INR Puncture Site ABG pH ABG pCO2 at Pt Temp ABG pO2 at Pt Temp ABG HCO3 ABG O2 Sat (Measured) ABG O2 Content ABG Base Excess Timmy Test O2 Delivery Device Oxygen Flow Rate PEEP Sodium 142 Potassium 3.7 Chloride 108 H Carbon Dioxide 27 Anion Gap 7 L BUN 13 Creatinine < 0.2 L Creat Clearance w eGFR > 60 POC Glucometer Random Glucose 107 H D Lactic Acid Calcium 8.7 Phosphorus 3.2 Magnesium 1.9 Total Bilirubin 1.8 H D Cancelled Direct Bilirubin 0.3 H Cancelled AST 13 L D Cancelled ALT 17 D Cancelled Alkaline Phosphatase 43 L Cancelled LD Total 138 Cancelled Troponin I Total Protein 6.5 Cancelled Albumin 2.8 L Cancelled Urine Color Urine Appearance Urine pH Ur Specific [place] Urine Protein Urine Glucose (UA) Urine Ketones Urine Blood Urine Nitrite Urine Bilirubin Urine Urobilinogen Ur Leukocyte Esterase Stool Occult Blood Blood Type Antibody Screen Crossmatch Active Medications Generic Name Dose Route Start Last Admin Trade Name Freq PRN Reason Stop Dose Admin Al Hydroxide/Mg Hydroxide 5 ml 12/23/16 11:09 Mylanta Oral Suspension - PEG ASDIR PRN DYSPEPSIA Albuterol Sulfate 1 amp 12/23/16 11:09 Ventolin 0.083% Nebulizer Soln - NEB Q4H PRN SHORT OF BREATH/WHEEZING Atenolol 25 mg 12/22/16 15:30 12/23/16 11:12 Tenormin - GT 25 mg DAILY TOSIN Administration Baclofen 10 mg 12/23/16 14:00 12/26/16 06:43 Lioresal - PEG Not Given TID TOSIN Bisacodyl 10 mg 12/23/16 11:09 Dulcolax Suppository - RC DAILY PRN CONSTIPATION Calcium Carbonate/Cholecalciferol 1 tab 12/23/16 14:00 12/26/16 06:44 Os-Gerald 500+D - PEG Not Given TID [facility] Ferrous Sulfate 300 mg 12/24/16 10:45 12/26/16 10:48 Feosol GT 300 mg DAILY TOSIN Administration Fluticasone Propionate 1 spray 12/23/16 11:15 12/25/16 09:43 Flonase - NS 1 spray DAILY TOSIN Administration Heparin Sodium (Porcine) 5,000 unit 12/22/16 14:00 12/26/16 06:51 Heparin - SQ 5,000 unit TID [facility] Administration Amino Acids 1,000 mls @ 42 mls/hr 12/20/16 17:45 12/24/16 18:48 Clinimix - IV Not Given Q24H [facility]OS[facility] Dextrose/Sodium Chloride 1,000 mls @ 83 mls/hr 12/25/16 19:30 12/25/16 22:30 D5-Ns - IV 83 mls/hr ASDIR TOSIN Administration Lactobacillus Acidophilus 1 tab 12/23/16 16:28 12/26/16 10:44 Bacid - PEG 1 tab BID TOSIN Administration Levetiracetam 500 mg 12/23/16 22:00 12/26/16 10:48 Keppra Oral Solution - GT 500 mg BID TOSIN Administration Metoclopramide HCl 5 mg 12/23/16 11:15 12/26/16 10:49 Reglan Oral Solution - PEG 5 mg BID TOSIN Administration Non-Formulary Medication 4 mg 12/23/16 14:00 12/26/16 06:44 Tiagabine Hcl [Gabitril] PEG Not Given TID TOSIN Non-Formulary Medication 3 mg 12/26/16 08:24 Tizanidine Hcl [Tizanidine Hcl] PEG QID [facility] Potassium Chloride 10 meq 12/23/16 12:45 12/26/16 10:48 Potassium Chloride Oral Liquid PEG 10 meq DAILY TOSIN Administration Simethicone 40 mg 12/23/16 12:00 12/26/16 12:37 Mylicon Liquid - GT Not Given Q6HPO [facility] Sucralfate 1 gm 12/23/16 11:15 12/26/16 10:44 Carafate Oral Suspension - PEG 1 gm BID TOSIN Administration ASSESSMENT/PLAN 36 year-old male [place] resident, with congenital quadriplegia, general convulsive epilepsy, profound MR, monocular extropia, nonverbal, and severe mental deficits. Admitted for suspected abdominal infection. Hospital course complicated on 12/26 by episode of severe hypotension and bradycardia. Abdominal infection, resolved --on admission initial WBC 20k, WBC normalized 12/19; afebrile --initial imaging suggested a possible bowel perforation but this was subsequently ruled out by Dr. Rausch in two flouroscopic exams and susequent CT imaging --completed course of Zosyn for an abdominal infection not otherwise specified J/G Tube replacement --done today; functioning well Seizure disorder --no seizure activity observed --continue meds Hypotension, bradycardia, resolved --became markedly hypotensive and bradycardic on 12/26; responded to fluids --suspect multifactorial: combination of atenolol and high dose tizanidine ( alpha 2 agonist) and anemia --had started slow titration of tizanidine prior to this episode, will resume lower dose this evening Hypertension --resume atenolol, tizanidine TID (from QID) Microcytic Anemia --Hgb 11.1 on admission, has trended slowly down; transfused 2U PRBC yesterday with good response 09/22-->12.2; repeat this morning down again 10.4 --repeat cbc pending --no signs of active bleeding --may be hemolysis, haptoglobin pending --GI following Functional quadriplegia --dependent for all ADLs Resume tube feeds Visit type - Emergency Visit Emergency Visit: Yes ED Registration Date: 12/17/16 Care time: The patient presented to the Emergency Department on the above date and was hospitalized for further evaluation of their emergent condition. - New Patient This patient is new to me today: No - Critical Care Critical Care patient: Yes Total Critical Care Time (in minutes): 45 Critical Care Statement: The care of this patient involved high complexity decision making to prevent further life threatening deterioration of the patient 's condition and/or to evaluate & treat vital organ system(s) failure or risk of failure.
[2016-12-26] MEDS: FLUTICASONE PROP 0.05% 16 GM NASAL SPRAY NS SCH (15:00)
[2016-12-26] MEDS: DEXTROSE 5%-NORMAL SALINE 1,000 ML IV SCH (15:00)
[2016-12-26] MEDS ORDERED: PATIENT'S OWN MEDICATION (NON-FORMULARY) (Tizanidine Hcl [Tizanidine Hcl] 4 MG) PEG STA (17:44)
[2016-12-26] MEDS ORDERED: ALBUTEROL SO4 0.083% IH SOL 2.5 MG/3 ML VIAL.NEB. NEB PRN (18:49)
[2016-12-26] MEDS ORDERED: MAGNESIUM SULF 50% (8.12 MEQ/2 ML-1 GM VIAL) IVPB ONE (18:49)
[2016-12-26] MEDS ORDERED: BISACODYL 10 MG SUPP.RECT RC PRN (18:49)
[2016-12-26] MEDS ORDERED: MAG HYDROX/AL HYDROX/SIMETH 30 ML UNIT-DOSE CUP PEG PRN (18:49)
[2016-12-26 19:11] LABS: MCH 25.2 pg (25.7-33.7); MCHC 33.4 g/dl (32.0-35.9); MEAN CELL VOLUME 75.6 fl (80-96); MEAN PLT VOLUME 7.2 fl (7.5-11.1); PLATELET COUNT 246 K/MM3 (134-434); RDW 18.3 % (11.9-15.9); WHITE BLOOD COUNT 10.7 K/mm3 (4.0-10.0)
[2016-12-26] MEDS ORDERED: MAGNESIUM SULF 50% (8.12 MEQ/2 ML-1 GM VIAL) ONE (21:41)
[2016-12-26] MEDS: GABITRIL 4 MG PEG SCH (22:48)
[2016-12-26] MEDS: TIZANIDINE 4 MG PEG SCH (22:48)
[2016-12-27] MEDS: GABITRIL 4 MG PEG SCH ×4 (05:58→23:38)
[2016-12-27] MEDS: BACLOFEN 10 MG TABLET (FP) PEG SCH ×4 (05:59→23:36)
[2016-12-27] MEDS: CALCIUM 500MG/VIT-D 200 UNITS COMBO TABLET (FP) PEG SCH ×4 (05:59→23:36)
[2016-12-27] MEDS: TIZANIDINE 4 MG PEG SCH ×4 (05:59→23:37)
[2016-12-27] MEDS: HEPARIN NA (PORCINE) 5,000 UNITS/ML 1ML VIAL SQ SCH ×3 (06:00→23:54)
[2016-12-27] MEDS: SIMETHICONE 40 MG/0.6 ML BOTTLE GT SCH ×2 (06:00→12:17)
[2016-12-27] MEDS ORDERED: PT OWN MED DRAWER 7, Y5N ONE ×4 (09:13→14:01)
[2016-12-27] MEDS: LACTOBACILLUS ACIDOPHILUS 1 EACH TAB (FP) PEG SCH ×3 (10:07→23:25)
[2016-12-27] MEDS: POTASSIUM CHLORIDE ORAL LIQUID 20 MEQ/15 ML PEG SCH (10:15)
[2016-12-27] MEDS: MULTIVIT-MINERALS 236 ML ML GT SCH (10:15)
[2016-12-27] MEDS: FERROUS SO4 300 MG/5 ML ORAL SOLN UNIT DOSE CUPS GT SCH (10:16)
[2016-12-27] MEDS: METOCLOPRAMIDE HCL 5 MG/5 ML UNIT DOSE CUP PEG SCH ×2 (10:16→23:37)
[2016-12-27] MEDS: SUCRALFATE 1 GM/10 ML UNIT DOSE CUPS PEG SCH ×2 (10:16→23:35)
[2016-12-27] MEDS: levETIRAcetam 500 MG/5 ML ORAL SOLUTION (UNIT-DOSE CUPS) GT SCH (10:17)
[2016-12-27] MEDS: ATENOLOL 25 MG TABLET (FP) GT SCH (10:17)
[2016-12-27] MEDS: FLUTICASONE PROP 0.05% 16 GM NASAL SPRAY NS SCH (10:18)
[2016-12-27 10:32] LABS: BASOPHIL 0.6 % (0-2.0); EOSINOPHIL 2.3 % (0-4.5); MCH 24.8 pg (25.7-33.7); MCHC 32.8 g/dl (32.0-35.9); MEAN CELL VOLUME 75.4 fl (80-96); MEAN PLT VOLUME 7.4 fl (7.5-11.1); PLATELET COUNT 261 K/MM3 (134-434); RDW 18.4 % (11.9-15.9); WHITE BLOOD COUNT 11.8 K/mm3 (4.0-10.0)
[2016-12-27 11:09] LABS: ALBUMIN 3.3 g/dl (3.4-5.0); ALK PHOS 52 U/L (45-117); ANION GAP 8 (8-16); BILIRUBIN,TOTAL 0.9 mg/dL (0.2-1.0); CALCIUM 9.6 mg/dL (8.5-10.1); CO2 32 mmol/L (21-32); CREATININE 0.3 mg/dL (0.7-1.3); GLUCOSE,RANDOM 97 mg/dL (74-106); MAGNESIUM 2.3 mg/dL (1.8-2.4); PHOSPHOROUS 3.2 mg/dL (2.5-4.9); SGOT/AST 10 U/L (15-37); SGPT/ALT 16 U/L (12-78); TOT PROT 7.5 g/dl (6.4-8.2)
--- NOTE | 2016-12-27 13:08 | PN ---
Progress Note (short form) - Note Progress Note: resting comfortably smiling afebrile Vital Signs Period Temp Pulse Resp BP Sys/Bruce Pulse Ox Last 24 Hr 97.9 F-99.4 F 70-110 12-26 106-170/67-100 96-100 cor-rrr lungs bilateral rhonchi abd soft, GT intact with some clear drainage ext no edema [place] CBC, BMP 12/27/16 09:45 12/27/16 09:45 ct scan of chest 12/[address] abd/pelvis- no acute pathology a/p leukocytosis would observe for now no clear source of infection will repeat cxray as pulmonary exam is difficult Problem List - Problems (1) Sepsis Code(s): A41.9 - SEPSIS, UNSPECIFIED ORGANISM (2) Perforated small intestine Code(s): K63.1 - PERFORATION OF INTESTINE (NONTRAUMATIC)
--- NOTE | 2016-12-27 14:17 | PN ---
Physical Exam: SUBJECTIVE: Patient seen and examined at bedside. Mother present. OBJECTIVE: Vital Signs Period Temp Pulse Resp BP Sys/Bruce Pulse Ox Last 24 Hr 97.9 F-99.4 F 70-110 18-24 106-170/67-100 96-97 GENERAL/NEURO: The patient is awake, eyes open, back to baseline; smiles and vocalizes to verbal and tactile stimuli HEAD: Normal with no signs of trauma. EYES: PERRL, sclera anicteric, conjunctiva clear. No ptosis. LUNGS: Rhonchorous breath sounds HEART: Regular rate and rhythm, S1, S2 without murmur, rub or gallop. ABDOMEN: Soft, less distended; new J/G tube leaking EXTREMITIES: 2+ pulses, warm, well-perfused, no edema. Contracted. Laboratory Results - last 24 hr 12/26/16 12/26/16 12/26/16 05:00 18:45 18:45 WBC 10.7 H D RBC 4.20 Hgb 10.6 L Hct 31.7 L MCV 75.6 L MCH 25.2 L MCHC 33.4 RDW 18.3 H Plt Count 246 MPV 7.2 L Neutrophils % Lymphocytes % Monocytes % Eosinophils % Basophils % Retic Count 0.92 Haptoglobin 197 Sodium Potassium Chloride Carbon Dioxide Anion Gap BUN Creatinine Creat Clearance w eGFR Random Glucose Calcium Phosphorus Magnesium Total Bilirubin AST ALT Alkaline Phosphatase Total Protein Albumin 12/27/16 12/27/16 09:45 09:45 WBC 11.8 H RBC 4.74 Hgb 11.8 D Hct 35.8 MCV 75.4 L MCH 24.8 L MCHC 32.8 RDW 18.4 H Plt Count 261 MPV 7.4 L Neutrophils % 75.0 D Lymphocytes % 16.3 D Monocytes % 5.8 Eosinophils % 2.3 Basophils % 0.6 Retic Count Haptoglobin Sodium 142 Potassium 3.5 Chloride 102 Carbon Dioxide 32 Anion Gap 8 BUN 14 Creatinine 0.3 L D Creat Clearance w eGFR > 60 Random Glucose 97 Calcium 9.6 Phosphorus 3.2 Magnesium 2.3 D Total Bilirubin 0.9 D AST 10 L D ALT 16 Alkaline Phosphatase 52 D Total Protein 7.5 Albumin 3.3 L Active Medications Generic Name Dose Route Start Last Admin Trade Name Freq PRN Reason Stop Dose Admin Al Hydroxide/Mg Hydroxide 5 ml 12/26/16 18:49 Mylanta Oral Suspension - PEG ASDIR PRN DYSPEPSIA Albuterol Sulfate 1 amp 12/26/16 18:49 Ventolin 0.083% Nebulizer Soln - NEB Q4H PRN SHORT OF BREATH/WHEEZING Atenolol 25 mg 12/27/16 10:00 12/27/16 10:17 Tenormin - GT 25 mg DAILY [facility] Administration Baclofen 10 mg 12/26/16 22:00 12/27/16 14:03 Lioresal - PEG 10 mg TID [facility] Administration Bisacodyl 10 mg 12/26/16 18:49 Dulcolax Suppository - RC DAILY PRN CONSTIPATION Calcium Carbonate/Cholecalciferol 1 tab 12/26/16 22:00 12/27/16 14:05 Os-Gerald 500+D - PEG 1 tab TID [facility] Administration Ferrous Sulfate 300 mg 12/27/16 10:00 12/27/16 10:16 Feosol GT 300 mg DAILY [facility] Administration Fluticasone Propionate 1 spray 12/27/16 10:00 12/27/16 10:18 Flonase - NS 1 spray DAILY [facility] Administration Heparin Sodium (Porcine) 5,000 unit 12/26/16 22:00 12/27/16 13:51 Heparin - SQ 5,000 unit TID [facility] Administration Lactobacillus Acidophilus 1 tab 12/26/16 22:00 12/27/16 10:17 Bacid - PEG 1 tab BID [facility] Administration Levetiracetam 500 mg 12/26/16 22:00 12/27/16 10:17 Keppra Oral Solution - GT 500 mg BID [facility] Administration Metoclopramide HCl 5 mg 12/26/16 22:00 12/27/16 10:16 Reglan Oral Solution - PEG 5 mg BID [facility] Administration Tizanidine 4 Mg Tab 1 each 12/26/16 22:00 12/27/16 14:04 - Patient Own Med PEG 1 each TID [facility] Administration Gabitril 4 Mg Tab - 4 mg 12/26/16 22:00 12/27/16 14:04 Patient Own Med PEG 4 mg TID [facility] Administration Potassium Chloride 10 meq 12/27/16 10:00 12/27/16 10:15 Potassium Chloride Oral Liquid PEG 10 meq DAILY [facility] Administration Simethicone 40 mg 12/27/16 00:00 12/27/16 12:17 Mylicon Liquid - GT 40 mg Q6HPO [facility] Administration Sucralfate 1 gm 12/26/16 22:00 12/27/16 10:16 Carafate Oral Suspension - PEG 1 gm BID [facility] Administration ASSESSMENT/PLAN 36 year-old male [place] resident, with congenital quadriplegia, general convulsive epilepsy, profound MR, monocular extropia, nonverbal, and severe mental deficits. Admitted for suspected abdominal infection. Hospital course complicated on 12/26 by episode of severe hypotension and bradycardia. Abdominal infection, resolved --on admission initial WBC 20k, WBC normalized 12/19; afebrile --initial imaging suggested a possible bowel perforation but this was subsequently ruled out by Dr. Rausch in two flouroscopic exams and susequent CT imaging --completed course of Zosyn for an abdominal infection not otherwise specified Mild leukocytosis --WBC 11.8k, afebrile --sputum culture growing GNB --CT chest two days ago was clear; discussed with Dr. Hernandez; repeat CXR today; if no infiltrate, no abx J/G Tube replacement 12/26 --leaking; PEG study ordered --stopped tube feeds --start IV fluids Seizure disorder --no seizure activity observed --continue meds Hypotension, bradycardia, resolved --became markedly hypotensive and bradycardic on 12/25; responded to fluids --suspect multifactorial: combination of atenolol and high dose tizanidine ( alpha 2 agonist) and anemia --now hemodynamically stable, OK to d/c yarbrough Hypertension --resume atenolol, tizanidine TID (from QID) Microcytic Anemia --Hgb 11.1 on admission, has trended slowly down; transfused 2U PRBC 12/25 yesterday with good response 09/22-->12.2; --Hgb today 11.8, stable --GI following Functional quadriplegia --dependent for all ADLs F/E/N Fluids: back on IV fluids until PEG study complete; D5NS @ 100mL/hr; yarbrough in place Electrolytes: replete as indicated Nutrition: hold tube feeds DVT prophylaxis: subq heparin Dispo: continues to require inpatient care Visit type - Emergency Visit Emergency Visit: Yes ED Registration Date: 12/17/16 Care time: The patient presented to the Emergency Department on the above date and was hospitalized for further evaluation of their emergent condition. - New Patient This patient is new to me today: No - Critical Care Critical Care patient: No
[2016-12-27] MEDS: DEXTROSE 5%-NORMAL SALINE 1,000 ML IV SCH (15:14)
[2016-12-27] MEDS ORDERED: METOPROLOL TARTRATE 5 MG/5 ML VIAL IVPUSH STA (15:58)
--- NOTE | 2016-12-27 18:36 | EKG ---
Test Reason : Blood Pressure : / mmHG Vent. Rate : 101 BPM Atrial Rate : 101 BPM P-R Int : 130 ms QRS Dur : 072 ms QT Int : 336 ms P-R-T Axes : 060 027 057 degrees QTc Int : 435 ms POOR DATA QUALITY, INTERPRETATION MAY BE ADVERSELY AFFECTED SINUS TACHYCARDIA POSSIBLE LEFT ATRIAL ENLARGEMENT BORDERLINE ECG WHEN COMPARED WITH ECG OF 26-DEC-2016 09:10, NO SIGNIFICANT CHANGE WAS FOUND PATIENT MOVING DURING EKG REPEAT EKG IF CLINICALLY INDICATED Confirmed by WADE MAY MD ([id number] on 12/27/2016 6:36:36 PM Referred By: Terrance KELLY Confirmed By:WADE MAY MD
[2016-12-27] MEDS: levETIRAcetam 500 MG/5 ML INJECTION VIAL IVPB SCH (23:54)
[2016-12-28] MEDS: DEXTROSE 5%-NORMAL SALINE 1,000 ML IV SCH (05:24)
[2016-12-28] MEDS: HEPARIN NA (PORCINE) 5,000 UNITS/ML 1ML VIAL SQ SCH ×3 (06:19→21:50)
[2016-12-28] MEDS: SIMETHICONE 40 MG/0.6 ML BOTTLE GT SCH ×4 (06:20→17:37)
[2016-12-28] MEDS: GABITRIL 4 MG PEG SCH ×3 (06:21→21:49)
[2016-12-28] MEDS: TIZANIDINE 4 MG PEG SCH ×3 (06:21→21:49)
[2016-12-28] MEDS: CALCIUM 500MG/VIT-D 200 UNITS COMBO TABLET (FP) PEG SCH (06:21)
[2016-12-28] MEDS: BACLOFEN 10 MG TABLET (FP) PEG SCH ×3 (06:21→21:49)
[2016-12-28 08:39] LABS: ALBUMIN 3.2 g/dl (3.4-5.0); ALK PHOS 50 U/L (45-117); ANION GAP 6 (8-16); BILIRUBIN,TOTAL 0.9 mg/dL (0.2-1.0); CALCIUM 9.6 mg/dL (8.5-10.1); CO2 30 mmol/L (21-32); CREATININE 0.3 mg/dL (0.7-1.3); GLUCOSE,RANDOM 117 mg/dL (74-106); PHOSPHOROUS 3.4 mg/dL (2.5-4.9); SGPT/ALT 16 U/L (12-78); TOT PROT 7.4 g/dl (6.4-8.2)
[2016-12-28 08:40] LABS: MAGNESIUM 2.1 mg/dL (1.8-2.4); SGOT/AST 17 U/L (15-37)
[2016-12-28 08:45] LABS: BASOPHIL 0.7 % (0-2.0); EOSINOPHIL 3.3 % (0-4.5); MCH 24.7 pg (25.7-33.7); MCHC 32.2 g/dl (32.0-35.9); MEAN CELL VOLUME 76.8 fl (80-96); MEAN PLT VOLUME 7.9 fl (7.5-11.1); NEUTROPHILS 66.7 % (42.8-82.8); PLATELET COUNT 236 K/MM3 (134-434); RDW 19.5 % (11.9-15.9); WHITE BLOOD COUNT 8.3 K/mm3 (4.0-10.0)
[2016-12-28] MEDS: FLUTICASONE PROP 0.05% 16 GM NASAL SPRAY NS SCH (10:00)
--- NOTE | 2016-12-28 11:20 | PN ---
Progress Note (short form) - Note Progress Note: resting comfortably smiling afebrile Vital Signs Period Temp Pulse Resp BP Sys/Bruce Pulse Ox Last 24 Hr 98.2 F-99.0 F 90-96 20-22 151-165/94-115 97-97 cor-rrr lungs scattered drhonchi abd firm +G/Jt ext no edema CBC, BMP 12/28/16 07:50 12/28/16 07:30 Microbiology 12/25/16 23:00 Sputum - Expectorated Gram Stain - Final 12/25/16 23:00 Sputum - Expectorated Sputum Culture - Preliminary Klebsiella Pneumoniae Pseudomonas Aeruginosa 12/25/16 16:45 Blood - Peripheral Venous Blood Culture - Preliminary NO GROWTH OBTAINED AFTER 48 HOURS, INCUBATION TO CONTINUE FOR 3 DAYS. 12/25/16 16:45 Blood - Peripheral Venous Blood Culture - Preliminary NO GROWTH OBTAINED AFTER 48 HOURS, INCUBATION TO CONTINUE FOR 3 DAYS. 12/25/16 21:20 Urine - Urine Sam Urine Culture - Final NO GROWTH OBTAINED ct chest no acute pathology ct abd/pelvis- no acute pathology cxray no infiltrate a/p leukocytosis resolved sputum culture represents colonization no need to treat please call back if needed Problem List - Problems (1) Sepsis Code(s): A41.9 - SEPSIS, UNSPECIFIED ORGANISM (2) Perforated small intestine Code(s): K63.1 - PERFORATION OF INTESTINE (NONTRAUMATIC)
[2016-12-28] MEDS: levETIRAcetam 500 MG/5 ML INJECTION VIAL IVPB SCH ×2 (11:48→21:50)
[2016-12-28] MEDS: POTASSIUM CHLORIDE ORAL LIQUID 20 MEQ/15 ML PEG SCH (11:49)
--- NOTE | 2016-12-28 11:49 | PN ---
Physical Exam: SUBJECTIVE: Patient seen and examined OBJECTIVE: Vital Signs Period Temp Pulse Resp BP Sys/Bruce Pulse Ox Last 24 Hr 98.2 F-99.0 F 90-96 20-22 151-165/94-115 97 GENERAL/NEURO: The patient is awake, eyes open, back to baseline; smiles and vocalizes to verbal and tactile stimuli HEAD: Normal with no signs of trauma. EYES: PERRL, sclera anicteric, conjunctiva clear. No ptosis. LUNGS: Breath sounds equal, clear to auscultation bilaterally, no wheezes, no crackles, no accessory muscle use. HEART: Regular rate and rhythm, S1, S2 without murmur, rub or gallop. ABDOMEN: Soft, less distended; J/G tube in place; deflated and reinflated balloon and connected to LWS, no further leaking EXTREMITIES: 2+ pulses, warm, well-perfused, no edema. Contracted. Laboratory Results - last 24 hr 12/28/16 12/28/16 07:30 07:50 WBC 8.3 RBC 4.48 Hgb 11.1 L Hct 34.4 L MCV 76.8 L MCH 24.7 L MCHC 32.2 RDW 19.5 H Plt Count 236 MPV 7.9 Neutrophils % 66.7 Lymphocytes % 20.1 D Monocytes % 9.2 Eosinophils % 3.3 Basophils % 0.7 Sodium 146 H Potassium 3.7 Chloride 110 H Carbon Dioxide 30 Anion Gap 6 L BUN 15 Creatinine 0.3 L Creat Clearance w eGFR > 60 Random Glucose 117 H D Calcium 9.6 Phosphorus 3.4 Magnesium 2.1 Total Bilirubin 0.9 AST 17 D ALT 16 Alkaline Phosphatase 50 Total Protein 7.4 Albumin 3.2 L Active Medications Generic Name Dose Route Start Last Admin Trade Name Freq PRN Reason Stop Dose Admin Al Hydroxide/Mg Hydroxide 5 ml 12/26/16 18:49 Mylanta Oral Suspension - PEG ASDIR PRN DYSPEPSIA Albuterol Sulfate 1 amp 12/26/16 18:49 Ventolin 0.083% Nebulizer Soln - NEB Q4H PRN SHORT OF BREATH/WHEEZING Atenolol 25 mg 12/27/16 10:00 12/27/16 10:17 Tenormin - GT 25 mg DAILY [facility] Administration Baclofen 10 mg 12/26/16 22:00 12/28/16 06:21 Lioresal - PEG Not Given TID [facility] Bisacodyl 10 mg 12/26/16 18:49 Dulcolax Suppository - RC DAILY PRN CONSTIPATION Calcium Carbonate/Cholecalciferol 1 tab 12/26/16 22:00 12/28/16 06:21 Os-Gerald 500+D - PEG Not Given TID [facility] Ferrous Sulfate 300 mg 12/27/16 10:00 12/27/16 10:16 Feosol GT 300 mg DAILY [facility] Administration Fluticasone Propionate 1 spray 12/27/16 10:00 12/27/16 10:18 Flonase - NS 1 spray DAILY [facility] Administration Heparin Sodium (Porcine) 5,000 unit 12/26/16 22:00 12/28/16 06:19 Heparin - SQ 5,000 unit TID [facility] Administration Lactobacillus Acidophilus 1 tab 12/26/16 22:00 12/27/16 23:25 Bacid - PEG Not Given BID [facility] Levetiracetam 500 mg 12/27/16 23:30 12/27/16 23:54 Keppra Injection - IVPB 500 mg BID [facility] Administration Metoclopramide HCl 5 mg 12/26/16 22:00 12/27/16 23:37 Reglan Oral Solution - PEG Not Given BID [facility] Tizanidine 4 Mg Tab 1 each 12/26/16 22:00 12/28/16 06:21 - Patient Own Med PEG Not Given TID [facility] Gabitril 4 Mg Tab - 4 mg 12/26/16 22:00 12/28/16 06:21 Patient Own Med PEG Not Given TID [facility] Potassium Chloride 10 meq 12/27/16 10:00 12/27/16 10:15 Potassium Chloride Oral Liquid PEG 10 meq DAILY [facility] Administration Simethicone 40 mg 12/27/16 00:00 12/28/16 06:20 Mylicon Liquid - GT Not Given Q6HPO [facility] Sucralfate 1 gm 12/26/16 22:00 12/27/16 23:35 Carafate Oral Suspension - PEG Not Given BID [facility] ASSESSMENT/PLAN 36 year-old male [place] resident, with congenital quadriplegia, general convulsive epilepsy, profound MR, monocular extropia, nonverbal, and severe mental deficits. Admitted for suspected abdominal infection. Hospital course complicated on 12/26 by episode of severe hypotension and bradycardia. Abdominal infection, resolved --on admission initial WBC 20k, afebrile throughout hospital stay --initial imaging suggested a possible bowel perforation but this was subsequently ruled out by Dr. Rausch in two flouroscopic exams and susequent CT imaging --completed course of Zosyn 12/22 Pulmonary bacterial colonization --sputum cultures grew Klebsiella and Pseudomonas --afebrile, no leukocytosis --serial CXRs and CT imaging were negative for infiltrates --seen and evaluated by ID, this is considered colonization, no treatment J/G Tube replacement 12/26 --previous tube dislodged Seizure disorder --no seizure activity observed --continued home meds Hypotension, bradycardia, resolved --became markedly hypotensive and bradycardic on 12/25; responded to fluids --suspect multifactorial: combination of atenolol and high dose tizanidine ( alpha 2 agonist) and anemia Hypertension --resume atenolol, tizanidine TID (from QID) Microcytic Anemia --Hgb 11.1 on admission, trended slowly down; transfused 2U PRBC 12/25 yesterday with good response 09/22-->12.2; --Hgb back to baseline, stable Functional quadriplegia --dependent for all ADLs F/E/N Fluids/Nutrition: tube feeds with free water resumed Electrolytes: replete as indicated DVT prophylaxis: subq heparin Dispo: continues to require inpatient care. Hopefully can be transferred back to [place] tomorrow. Full Code. Visit type - Emergency Visit Emergency Visit: Yes ED Registration Date: 12/17/16 Care time: The patient presented to the Emergency Department on the above date and was hospitalized for further evaluation of their emergent condition. - New Patient This patient is new to me today: No - Critical Care Critical Care patient: No
[2016-12-28] MEDS: ATENOLOL 25 MG TABLET (FP) GT SCH (11:50)
[2016-12-28] MEDS: METOCLOPRAMIDE HCL 5 MG/5 ML UNIT DOSE CUP PEG SCH ×2 (11:51→21:49)
--- NOTE | 2016-12-28 15:18 | EKG ---
Test Reason : Blood Pressure : / mmHG Vent. Rate : 087 BPM Atrial Rate : 087 BPM P-R Int : 132 ms QRS Dur : 066 ms QT Int : 356 ms P-R-T Axes : 060 039 062 degrees QTc Int : 428 ms POOR DATA QUALITY, INTERPRETATION MAY BE ADVERSELY AFFECTED NORMAL SINUS RHYTHM WITH SINUS ARRHYTHMIA POSSIBLE LEFT ATRIAL ENLARGEMENT EARLT TRANSITION IN V2 BORDERLINE ECG WHEN COMPARED WITH ECG OF 28-DEC-2016 10:47, NO SIGNIFICANT CHANGE WAS FOUND PATIENT CONTRACTED CLINICAL CORRELATION IS RECOMMENDED Confirmed by WADE MAY MD ([id number]) on 12/28/2016 3:18:01 PM Referred By: Terrance KELLY Confirmed By:WADE MAY MD
--- NOTE | 2016-12-28 15:21 | EKG ---
Test Reason : Blood Pressure : / mmHG Vent. Rate : 086 BPM Atrial Rate : 086 BPM P-R Int : 134 ms QRS Dur : 068 ms QT Int : 356 ms P-R-T Axes : 060 036 057 degrees QTc Int : 426 ms POOR DATA QUALITY, INTERPRETATION MAY BE ADVERSELY AFFECTED Baseline wander Baseline wander NORMAL SINUS RHYTHM POSSIBLE LEFT ATRIAL ENLARGEMENT BORDERLINE ECG WHEN COMPARED WITH ECG OF 27-DEC-2016 11:00, NO SIGNIFICANT CHANGE WAS FOUND PATIENT CONTRACTED Confirmed by WADE MAY MD ([id number]) on 12/28/2016 3:21:10 PM Referred By: Terrance KELLY Confirmed By:WADE MAY MD
[2016-12-28] MEDS ORDERED: PT OWN MED DRAWER 7, Y5N ONE (17:15)
[2016-12-29] MEDS ORDERED: ACETAMINOPHEN 325 MG TABLET (FP) PO PRN (00:06)
[2016-12-29] MEDS ORDERED: oxyCODONE HCL 5 MG TABLET PO PRN (00:06)
[2016-12-29] MEDS: SIMETHICONE 40 MG/0.6 ML BOTTLE GT SCH ×3 (01:00→12:03)
[2016-12-29] MEDS: TIZANIDINE 4 MG PEG SCH ×3 (04:59→22:11)
[2016-12-29] MEDS: GABITRIL 4 MG PEG SCH ×3 (05:00→22:10)
[2016-12-29] MEDS: BACLOFEN 10 MG TABLET (FP) PEG SCH ×3 (05:01→22:14)
[2016-12-29] MEDS: HEPARIN NA (PORCINE) 5,000 UNITS/ML 1ML VIAL SQ SCH ×3 (05:01→22:14)
--- NOTE | 2016-12-29 07:42 | PN ---
Progress Note, Physician History of Present Illness: chart reviewed, events noted. Appears comfortable. No events overnight. Tolerating tube feeding - Current Medication List Current Medications: Active Medications Al Hydroxide/Mg Hydroxide (Mylanta Oral Suspension -) 5 ml PEG ASDIR PRN PRN Reason: DYSPEPSIA Albuterol Sulfate (Ventolin 0.083% Nebulizer Soln -) 1 amp NEB Q4H PRN PRN Reason: SHORT OF BREATH/WHEEZING Atenolol (Tenormin -) 25 mg GT DAILY [facility] Last Admin: 12/28/16 11:50 Dose: 25 mg Baclofen (Lioresal -) 10 mg PEG TID [facility] Last Admin: 12/29/16 05:01 Dose: 10 mg Bisacodyl (Dulcolax Suppository -) 10 mg RC DAILY PRN PRN Reason: CONSTIPATION Calcium Carbonate/Cholecalciferol (Os-Egrald 500+D -) 1 tab PEG TID [facility] Last Admin: 12/28/16 06:21 Dose: Not Given Ferrous Sulfate (Feosol) 300 mg GT DAILY [facility] Last Admin: 12/27/16 10:16 Dose: 300 mg Fluticasone Propionate (Flonase -) 1 spray NS DAILY [facility] Last Admin: 12/28/16 10:00 Dose: 1 spray Heparin Sodium (Porcine) (Heparin -) 5,000 unit SQ TID [facility] Last Admin: 12/29/16 05:01 Dose: 5,000 unit Lactobacillus Acidophilus (Bacid -) 1 tab PEG BID [facility] Last Admin: 12/27/16 23:25 Dose: Not Given Levetiracetam (Keppra Injection -) 500 mg IVPB BID [facility] Last Admin: 12/28/16 21:50 Dose: 500 mg Metoclopramide HCl (Reglan Oral Solution -) 5 mg PEG BID [facility] Last Admin: 12/28/16 21:49 Dose: 5 mg Tizanidine 4 Mg Tab (- Patient Own Med) 1 each PEG TID [facility] Last Admin: 12/29/16 04:59 Dose: 1 each Gabitril 4 Mg Tab - (Patient Own Med) 4 mg PEG TID [facility] Last Admin: 12/29/16 05:00 Dose: 4 mg Potassium Chloride (Potassium Chloride Oral Liquid) 10 meq PEG DAILY [facility] Last Admin: 12/28/16 11:49 Dose: 10 meq Simethicone (Mylicon Liquid -) 40 mg GT Q6HPO [facility] Last Admin: 12/29/16 05:04 Dose: 40 mg Sucralfate (Carafate Oral Suspension -) 1 gm PEG BID [facility] Last Admin: 12/27/16 23:35 Dose: Not Given - Objective Vital Signs: Vital Signs Temperature 97.6 F 12/29/16 06:00 Pulse Rate 59 L 12/29/16 06:00 Respiratory Rate 24 12/29/16 06:00 Blood Pressure 122/76 12/29/16 06:00 O2 Sat by Pulse Oximetry (%) 96 12/28/16 20:51 Constitutional: Yes: No Distress, Calm Cardiovascular: Yes: Regular Rate and Rhythm Respiratory: Yes: Regular Gastrointestinal: Yes: Normal Bowel Sounds, Soft, Distention Labs: CBC, BMP 12/28/16 07:50 12/28/16 07:30 INR, PTT INR 1.37 (0.82-1.09) H 12/25/16 16:45 Laboratory Results - last 24 hr 12/25/16 12/28/16 12/28/16 16:45 07:30 07:50 WBC 8.3 RBC 4.48 Hgb 11.1 L Hct 34.4 L MCV 76.8 L MCH 24.7 L MCHC 32.2 RDW 19.5 H Plt Count 236 MPV 7.9 Neutrophils % 66.7 Lymphocytes % 20.1 D Monocytes % 9.2 Eosinophils % 3.3 Basophils % 0.7 Sodium 146 H Potassium 3.7 Chloride 110 H Carbon Dioxide 30 Anion Gap 6 L BUN 15 Creatinine 0.3 L Creat Clearance w eGFR > 60 Random Glucose 117 H D Calcium 9.6 Phosphorus 3.4 Magnesium 2.1 Total Bilirubin 0.9 AST 17 D ALT 16 Alkaline Phosphatase 50 Total Protein 7.4 Albumin 3.2 L Blood Type A POSITIVE Antibody Screen Negative Crossmatch See Detail Problem List - Problems (1) Perforated small intestine Assessment/Plan: Tolerating GJ-tube feeding. D/c plan as per primary team Code(s): K63.1 - PERFORATION OF INTESTINE (NONTRAUMATIC) (2) Anemia Code(s): D64.9 - ANEMIA, UNSPECIFIED Qualifiers: Anemia type: acquired or hereditary hemolytic anemia Hemolytic anemia type: acquired, nonautoimmune, other Qualified Code(s): D59.4 - Other nonautoimmune hemolytic anemias; D59.4 - Other nonautoimmune hemolytic anemias; D59.4 - Other nonautoimmune hemolytic anemias; D59.4 - Other nonautoimmune hemolytic anemias
[2016-12-29 09:12] LABS: ALBUMIN 2.9 g/dl (3.4-5.0); ALK PHOS 50 U/L (45-117); ANION GAP 9 (8-16); BILIRUBIN,TOTAL 0.7 mg/dL (0.2-1.0); CO2 24 mmol/L (21-32); CREATININE 0.2 mg/dL (0.7-1.3); GLUCOSE,RANDOM 97 mg/dL (74-106); SGPT/ALT 15 U/L (12-78); TOT PROT 6.8 g/dl (6.4-8.2)
[2016-12-29 09:16] LABS: SGOT/AST 14 U/L (15-37)
[2016-12-29 09:25] LABS: MCH 24.8 pg (25.7-33.7); MCHC 32.3 g/dl (32.0-35.9); MEAN CELL VOLUME 76.9 fl (80-96); MEAN PLT VOLUME 7.1 fl (7.5-11.1); PLATELET COUNT 232 K/MM3 (134-434); RDW 19.5 % (11.9-15.9); WHITE BLOOD COUNT 15.3 K/mm3 (4.0-10.0)
[2016-12-29 11:17] LABS: TOTAL CELLS COUNTED 100
[2016-12-29 11:18] LABS: PLATELET ESTIMATE ADEQUATE (NORMAL)
[2016-12-29] MEDS ORDERED: PT OWN MED DRAWER 7, Y5N ONE ×3 (11:47→22:04)
[2016-12-29] MEDS: METOCLOPRAMIDE HCL 5 MG/5 ML UNIT DOSE CUP PEG SCH ×2 (11:54→22:13)
[2016-12-29] MEDS: ATENOLOL 25 MG TABLET (FP) GT SCH (11:54)
[2016-12-29] MEDS: POTASSIUM CHLORIDE ORAL LIQUID 20 MEQ/15 ML PEG SCH (11:55)
[2016-12-29] MEDS: levETIRAcetam 500 MG/5 ML INJECTION VIAL IVPB SCH ×2 (11:56→22:14)
[2016-12-29] MEDS: FLUTICASONE PROP 0.05% 16 GM NASAL SPRAY NS SCH (12:03)
--- NOTE | 2016-12-29 12:53 | PN ---
Progress Note (short form) - Note Progress Note: NAD on NC O2. Febrile. Apparently tolerating TF. No documented acute events overnight. Intake & Output 12/26/16 12/27/16 12/28/16 12/29/16 23:59 23:59 23:59 23:59 Intake Total 2352.5 135 1360 1840 Output Total 2100 300 Balance 252.5 -165 1360 1840 Weight 95 lb 2 oz 97 lb 6 oz 95 lb 12.8 oz Last Vital Signs Temp Pulse Resp BP Pulse Ox 98.4 F 75 20 137/89 95 12/29/16 09:00 12/29/16 09:05 12/29/16 09:00 12/29/16 09:00 12/29/16 09:05 Active Medications Al Hydroxide/Mg Hydroxide (Mylanta Oral Suspension -) 5 ml PEG ASDIR PRN PRN Reason: DYSPEPSIA Albuterol Sulfate (Ventolin 0.083% Nebulizer Soln -) 1 amp NEB Q4H PRN PRN Reason: SHORT OF BREATH/WHEEZING Atenolol (Tenormin -) 25 mg GT DAILY [facility] Last Admin: 12/29/16 11:54 Dose: 25 mg Baclofen (Lioresal -) 10 mg PEG TID [facility] Last Admin: 12/29/16 05:01 Dose: 10 mg Bisacodyl (Dulcolax Suppository -) 10 mg RC DAILY PRN PRN Reason: CONSTIPATION Calcium Carbonate/Cholecalciferol (Os-Gerald 500+D -) 1 tab PEG TID [facility] Last Admin: 12/28/16 06:21 Dose: Not Given Ferrous Sulfate (Feosol) 300 mg GT DAILY [facility] Last Admin: 12/27/16 10:16 Dose: 300 mg Fluticasone Propionate (Flonase -) 1 spray NS DAILY [facility] Last Admin: 12/29/16 12:03 Dose: 1 spray Heparin Sodium (Porcine) (Heparin -) 5,000 unit SQ TID [facility] Last Admin: 12/29/16 05:01 Dose: 5,000 unit Lactobacillus Acidophilus (Bacid -) 1 tab PEG BID [facility] Last Admin: 12/27/16 23:25 Dose: Not Given Levetiracetam (Keppra Injection -) 500 mg IVPB BID [facility] Last Admin: 12/29/16 11:56 Dose: 500 mg Metoclopramide HCl (Reglan Oral Solution -) 5 mg PEG BID [facility] Last Admin: 12/29/16 11:54 Dose: 5 mg Tizanidine 4 Mg Tab (- Patient Own Med) 1 each PEG TID [facility] Last Admin: 12/29/16 04:59 Dose: 1 each Gabitril 4 Mg Tab - (Patient Own Med) 4 mg PEG TID [facility] Last Admin: 12/29/16 05:00 Dose: 4 mg Potassium Chloride (Potassium Chloride Oral Liquid) 10 meq PEG DAILY [facility] Last Admin: 12/29/16 11:55 Dose: 10 meq Simethicone (Mylicon Liquid -) 40 mg GT Q6HPO [facility] Last Admin: 12/29/16 12:03 Dose: 40 mg Sucralfate (Carafate Oral Suspension -) 1 gm PEG BID [facility] Last Admin: 12/27/16 23:35 Dose: Not Given Gen: NAD at rest, awake Heart: RRR Lung: decreased breath sounds at the bases Abd: soft, +enterocutaneous fistula Ext: no edema, contracted Laboratory Results - last 24 hr 12/25/16 12/29/16 12/29/16 16:45 07:40 08:42 WBC 15.3 H D RBC 4.40 Hgb 10.9 L Hct 33.9 L MCV 76.9 L MCH 24.8 L MCHC 32.3 RDW 19.5 H Plt Count 232 MPV 7.1 L D Total Counted 100 Neutrophils % No Result Required. Neutrophils % (Manual) 88 H Lymphocytes % No Result Required. Lymphocytes % (Manual) 8 Monocytes % (Manual) 4 Platelet Estimate Adequate Sodium 144 Potassium 4.0 Chloride 111 H Carbon Dioxide 24 Anion Gap 9 BUN 14 Creatinine 0.2 L D Creat Clearance w eGFR > 60 Random Glucose 97 Calcium 9.0 Total Bilirubin 0.7 D AST 14 L ALT 15 Alkaline Phosphatase 50 Total Protein 6.8 Albumin 2.9 L Blood Type A POSITIVE Antibody Screen Negative Crossmatch See Detail ASSESSMENT AND PLAN: Bowel Perforation Intra-Abdominal Collection/Abscess Mental Retardation Functional Quadriplegia - Remains off ABX coverage - Enteral feeds as tolerated - Aspiration precautions - DVT prophylaxis - D/C planning Dr Irwin
--- NOTE | 2016-12-29 14:43 | PN ---
Physical Exam: SUBJECTIVE: Patient seen and examined at the bedside. Appears to be at his baseline. OBJECTIVE: Would ideally discharge patient today back to [place], he is tolerating his feeds and appears to be doing well, however, His WBC today is 15.3, but he remains afebrile Will need ID clearance prior to discharge Notes and events reviewed Vital Signs Period Temp Pulse Resp BP Sys/Bruce Pulse Ox Last 24 Hr 97.6 F-99.6 F 59-77 20-24 122-151/76-106 95-96 GENERAL: The patient is awake, eyes open, back to baseline smiles and vocalizes to verbal and tactile stimuli HEAD: Normal with no signs of trauma. EYES: PERRL, sclera anicteric, conjunctiva clear. No ptosis. LUNGS: Breath sounds equal, clear to auscultation bilaterally, no wheezes, no crackles, no accessory muscle use. HEART: Regular rate and rhythm, S1, S2 without murmur, rub or gallop. ABDOMEN: Soft, less distended; J/G tube in place; deflated and reinflated balloon and connected to LWS, no further leaking EXTREMITIES: 2+ pulses, warm, well-perfused, no edema. Contracted. Laboratory Results - last 24 hr 12/25/16 12/29/16 12/29/16 16:45 07:40 08:42 WBC 15.3 H D RBC 4.40 Hgb 10.9 L Hct 33.9 L MCV 76.9 L MCH 24.8 L MCHC 32.3 RDW 19.5 H Plt Count 232 MPV 7.1 L D Total Counted 100 Neutrophils % No Result Required. Neutrophils % (Manual) 88 H Lymphocytes % No Result Required. Lymphocytes % (Manual) 8 Monocytes % (Manual) 4 Platelet Estimate Adequate Sodium 144 Potassium 4.0 Chloride 111 H Carbon Dioxide 24 Anion Gap 9 BUN 14 Creatinine 0.2 L D Creat Clearance w eGFR > 60 Random Glucose 97 Calcium 9.0 Total Bilirubin 0.7 D AST 14 L ALT 15 Alkaline Phosphatase 50 Total Protein 6.8 Albumin 2.9 L Blood Type A POSITIVE Antibody Screen Negative Crossmatch See Detail Active Medications Generic Name Dose Route Start Last Admin Trade Name Freq PRN Reason Stop Dose Admin Al Hydroxide/Mg Hydroxide 5 ml 12/26/16 18:49 Mylanta Oral Suspension - PEG ASDIR PRN DYSPEPSIA Albuterol Sulfate 1 amp 10/06/17 18:49 Ventolin 0.083% Nebulizer Soln - NEB Q4H PRN SHORT OF BREATH/WHEEZING Atenolol 25 mg 12/27/16 10:00 12/29/16 11:54 Tenormin - GT 25 mg DAILY TOSIN Administration Baclofen 10 mg 12/26/16 22:00 12/29/16 14:27 Lioresal - PEG 10 mg TID TOSIN Administration Bisacodyl 10 mg 12/26/16 18:49 Dulcolax Suppository - RC DAILY PRN CONSTIPATION Calcium Carbonate/Cholecalciferol 1 tab 12/26/16 22:00 12/28/16 06:21 Os-Gerald 500+D - PEG Not Given TID TOSIN Ferrous Sulfate 300 mg 12/27/16 10:00 12/27/16 10:16 Feosol GT 300 mg DAILY TOSIN Administration Fluticasone Propionate 1 spray 12/27/16 10:00 12/29/16 12:03 Flonase - NS 1 spray DAILY TOSIN Administration Heparin Sodium (Porcine) 5,000 unit 12/26/16 22:00 12/29/16 14:27 Heparin - SQ 5,000 unit TID TOSIN Administration Lactobacillus Acidophilus 1 tab 12/26/16 22:00 12/27/16 23:25 Bacid - PEG Not Given BID TOSIN Levetiracetam 500 mg 12/27/16 23:30 12/29/16 11:56 Keppra Injection - IVPB 500 mg BID TOSIN Administration Metoclopramide HCl 5 mg 12/26/16 22:00 12/29/16 11:54 Reglan Oral Solution - PEG 5 mg BID TOSIN Administration Tizanidine 4 Mg Tab 1 each 12/26/16 22:00 12/29/16 14:27 - Patient Own Med PEG 1 each TID TOSIN Administration Gabitril 4 Mg Tab - 4 mg 12/26/16 22:00 12/29/16 14:27 Patient Own Med PEG 4 mg TID TOSIN Administration Potassium Chloride 10 meq 12/27/16 10:00 12/29/16 11:55 Potassium Chloride Oral Liquid PEG 10 meq DAILY TOSIN Administration Simethicone 40 mg 12/27/16 00:00 12/29/16 12:03 Mylicon Liquid - GT 40 mg Q6HPO TOSIN Administration Sucralfate 1 gm 12/26/16 22:00 12/27/16 23:35 Carafate Oral Suspension - PEG Not Given BID TOSIN ASSESSMENT/PLAN: Patient is a 36 year old male (from [place])with a significant past medical history of congenital quadriplegia, general convulsive epilepsy, profound MR, monocular extropia, nonverbal, severe mental deficit. He was sent to the ED on 12/17/2016 because of hypotension and hypoxia. GI: Abdominal distention/suspected abdominal perforation, resolved/ruled out A/P: A suspected bowel performation seen on initial imaging was subsequently ruled out WBC on admission 20 but he remained afebrile during hospization WBC today 15.3, was 8.3 yesterday. He remains afebrile He has completed IV Zosyn therapy on 12/22/2016 ID consulted for the elevation in his WBC on 12/26/2016 he had a new J/G Tube replaced and is now tolerating feeds Neurology: Seizure disorder A/P: no seizure activity during hospitalization On his home medications via Gtube Cardiology: Eposide of hypotension and bradycardia on 12/25, now resolved A/P: It was suspected that this may have been caused by the combination of atenolol and high dose tizanidine and anemia No further episodes, vitals stable Note that the Tizanidine is now TID, previously QID Hematology: Microcytic Anemia A/P: S/p 2 units of prbc on 12/25/2016 Now back to baseline Functional quadriplegia, chronic A/P: dependent for all ADLs F.E.N. Fluids/Nutrition: tube feeds with free water resumed/Jevity Electrolytes: replete as indicated Prophylaxis: DVT: Heparin GI: mylanta, reglan, carafate Disposition: Discharge to [place] pending repeat a.m. labs. Full Code. Visit type - Emergency Visit Emergency Visit: Yes ED Registration Date: 12/17/16 Care time: The patient presented to the Emergency Department on the above date and was hospitalized for further evaluation of their emergent condition. - New Patient This patient is new to me today: No - Critical Care Critical Care patient: No - Discharge Referral Referred to [facility] No
[2016-12-30] MEDS: SIMETHICONE 40 MG/0.6 ML BOTTLE GT SCH ×4 (00:05→18:14)
[2016-12-30] MEDS ORDERED: PT OWN MED DRAWER 7, Y5N ONE ×4 (02:36→18:05)
[2016-12-30] MEDS: GABITRIL 4 MG PEG SCH ×3 (05:53→23:08)
[2016-12-30] MEDS: CALCIUM 500MG/VIT-D 200 UNITS COMBO TABLET (FP) PEG SCH ×3 (05:53→23:06)
[2016-12-30] MEDS: HEPARIN NA (PORCINE) 5,000 UNITS/ML 1ML VIAL SQ SCH ×3 (05:53→23:06)
[2016-12-30] MEDS: TIZANIDINE 4 MG PEG SCH ×3 (05:53→23:10)
[2016-12-30] MEDS: BACLOFEN 10 MG TABLET (FP) PEG SCH ×3 (05:53→23:06)
[2016-12-30 07:05] LABS: BASOPHIL 0.1 % (0-2.0); EOSINOPHIL 0.8 % (0-4.5); MCH 24.9 pg (25.7-33.7); MCHC 32.7 g/dl (32.0-35.9); MEAN PLT VOLUME 6.9 fl (7.5-11.1); NEUTROPHILS 84.1 % (42.8-82.8); PLATELET COUNT 227 K/MM3 (134-434); RDW 19.6 % (11.9-15.9); WHITE BLOOD COUNT 18.1 K/mm3 (4.0-10.0)
[2016-12-30 07:29] LABS: ALBUMIN 2.7 g/dl (3.4-5.0); ALK PHOS 51 U/L (45-117); ANION GAP 9 (8-16); BILIRUBIN,TOTAL 0.7 mg/dL (0.2-1.0); CALCIUM 8.2 mg/dL (8.5-10.1); CO2 27 mmol/L (21-32); CREATININE 0.2 mg/dL (0.7-1.3); GLUCOSE,RANDOM 122 mg/dL (74-106); SGPT/ALT 11 U/L (12-78); TOT PROT 6.4 g/dl (6.4-8.2)
[2016-12-30 07:34] LABS: SGOT/AST 4 U/L (15-37)
--- NOTE | 2016-12-30 10:30 | PN ---
Physical Exam: SUBJECTIVE: Patient seen and examined at the bedside. He is non verbal at baseline. OBJECTIVE: WBC keeps rising @ 18, temp of 100.7 F reported Fever source? cdiff vs. abd source vs other Blood and urine cultures ordered Unknown source of rising WBC Abdomen soft, +distended CT scan of abd. ordered Vital Signs Period Temp Pulse Resp BP Sys/Bruce Pulse Ox Last 24 Hr 99.3 F-99.9 F 78-91 20-20 123-146/76-102 95 GENERAL: The patient is awake, eyes open, vocalizes to verbal and tactile stimuli, smiles, non verbal at baseline HEAD: Normal with no signs of trauma. EYES: PERRL, sclera anicteric, conjunctiva clear. No ptosis. LUNGS: Breath sounds equal, clear to auscultation bilaterally, no wheezes, no crackles, no accessory muscle use. HEART: Regular rate and rhythm, S1, S2 without murmur, rub or gallop. ABDOMEN: Soft, distended; J/G tube in place, appears patent, feeds stopped for CT scan of abdomen EXTREMITIES: 2+ pulses, warm, well-perfused, no edema. upper and lower extremities contracted at baseline. NEURO: at baseline Laboratory Results - last 24 hr 12/29/16 12/30/16 12/30/16 08:42 06:35 06:35 WBC 15.3 H D 18.1 H RBC 4.40 3.85 L Hgb 10.9 L 9.6 L D Hct 33.9 L 29.2 L MCV 76.9 L 76.0 L MCH 24.8 L 24.9 L MCHC 32.3 32.7 RDW 19.5 H 19.6 H Plt Count 232 227 MPV 7.1 L D 6.9 L Total Counted 100 Neutrophils % 84.1 H D Neutrophils % (Manual) 88 H Lymphocytes % 5.2 L D Lymphocytes % (Manual) 8 Monocytes % 9.8 Monocytes % (Manual) 4 Eosinophils % 0.8 Basophils % 0.1 Platelet Estimate Adequate Sodium 138 Potassium 3.8 Chloride 102 Carbon Dioxide 27 Anion Gap 9 BUN 17 D Creatinine 0.2 L Creat Clearance w eGFR > 60 Random Glucose 122 H D Calcium 8.2 L Total Bilirubin 0.7 AST 4 L D ALT 11 L D Alkaline Phosphatase 51 Total Protein 6.4 Albumin 2.7 L Active Medications Generic Name Dose Route Start Last Admin Trade Name Freq PRN Reason Stop Dose Admin Al Hydroxide/Mg Hydroxide 5 ml 12/26/16 18:49 Mylanta Oral Suspension - PEG ASDIR PRN DYSPEPSIA Albuterol Sulfate 1 amp 12/26/16 18:49 Ventolin 0.083% Nebulizer Soln - NEB Q4H PRN SHORT OF BREATH/WHEEZING Atenolol 25 mg 12/27/16 10:00 12/29/16 11:54 Tenormin - GT 25 mg DAILY TOSIN Administration Baclofen 10 mg 12/26/16 22:00 12/30/16 05:53 Lioresal - PEG 10 mg TID TOSIN Administration Bisacodyl 10 mg 12/26/16 18:49 Dulcolax Suppository - RC DAILY PRN CONSTIPATION Calcium Carbonate/Cholecalciferol 1 tab 12/26/16 22:00 12/30/16 05:53 Os-Gerald 500+D - PEG 1 tab TID TOSIN Administration Ferrous Sulfate 300 mg 12/27/16 10:00 12/27/16 10:16 Feosol GT 300 mg DAILY TOSIN Administration Fluticasone Propionate 1 spray 12/27/16 10:00 12/29/16 12:03 Flonase - NS 1 spray DAILY TOSIN Administration Heparin Sodium (Porcine) 5,000 unit 12/26/16 22:00 12/30/16 05:53 Heparin - SQ 5,000 unit TID TOSIN Administration Lactobacillus Acidophilus 1 tab 12/26/16 22:00 12/27/16 23:25 Bacid - PEG Not Given BID TOSIN Levetiracetam 500 mg 12/27/16 23:30 12/29/16 22:14 Keppra Injection - IVPB 500 mg BID TOSIN Administration Metoclopramide HCl 5 mg 12/26/16 22:00 12/29/16 22:13 Reglan Oral Solution - PEG 5 mg BID TOSIN Administration Tizanidine 4 Mg Tab 1 each 12/26/16 22:00 12/30/16 05:53 - Patient Own Med PEG 1 each TID TOSIN Administration Gabitril 4 Mg Tab - 4 mg 12/26/16 22:00 12/30/16 05:53 Patient Own Med PEG 4 mg TID TOSIN Administration Potassium Chloride 10 meq 12/27/16 10:00 12/29/16 11:55 Potassium Chloride Oral Liquid PEG 10 meq DAILY TOSIN Administration Simethicone 40 mg 12/27/16 00:00 12/30/16 05:54 Mylicon Liquid - GT 40 mg Q6HPO TOSIN Administration Sucralfate 1 gm 12/26/16 22:00 12/27/16 23:35 Carafate Oral Suspension - PEG Not Given BID TOSIN ASSESSMENT/PLAN: Patient is a 36 year old male (from [place])with a significant past medical history of congenital quadriplegia, general convulsive epilepsy, profound MR, monocular extropia, nonverbal, severe mental deficit. He was sent to the ED on 12/17/2016 because of hypotension and hypoxia. ID/GI: Abdominal distention/suspected abdominal perforation, resolved/ruled out A/P: A suspected bowel perforation seen on initial imaging was subsequently ruled out WBC on admission 20, then began to trend down, WBC now 18.1 with low grade fevers of 100.7F Fever source? cdiff vs, abdominal source, vs other Blood and urine cultures sent, cdiff sent He has completed IV Zosyn therapy on 12/22/2016 ID consulted for the elevation in his WBC, spoke to Dr. Chandler and made him aware of leukocytosis on 12/26/2016 he had a new J/G Tube replaced and is now tolerating feeds Neurology: Seizure disorder, chronic A/P: no seizure activity during hospitalization On his home medications via Gtube, also on Keppra which was started during hospitalization Cardiology: Episode of hypotension and bradycardia on 12/25, now resolved A/P: It was suspected that this may have been caused by the combination of atenolol and high dose tizanidine and anemia No further episodes, vitals stable Note that the Tizanidine is now TID, previously QID Hematology: Microcytic Anemia A/P: S/p 2 units of prbc on 12/25/2016 Monitor CBC Functional quadriplegia, chronic A/P: dependent for all ADLs F.E.N. Fluids/Nutrition: tube feeds with free water resumed/Vital Electrolytes: replete as indicated Prophylaxis: DVT: Heparin GI: mylanta, reglan, carafate Disposition: Discharge to [place] once medically cleared. Full Code. Visit type - Emergency Visit Emergency Visit: Yes ED Registration Date: 12/17/16 Care time: The patient presented to the Emergency Department on the above date and was hospitalized for further evaluation of their emergent condition. - New Patient This patient is new to me today: No - Critical Care Critical Care patient: No - Discharge Referral Referred to [facility] No
[2016-12-30] MEDS: METOCLOPRAMIDE HCL 5 MG/5 ML UNIT DOSE CUP PEG SCH ×2 (10:43→22:55)
[2016-12-30] MEDS: FERROUS SO4 300 MG/5 ML ORAL SOLN UNIT DOSE CUPS GT SCH (10:44)
[2016-12-30] MEDS: levETIRAcetam 500 MG/5 ML INJECTION VIAL IVPB SCH ×2 (10:44→23:06)
[2016-12-30] MEDS: POTASSIUM CHLORIDE ORAL LIQUID 20 MEQ/15 ML PEG SCH (10:44)
[2016-12-30] MEDS: LACTOBACILLUS ACIDOPHILUS 1 EACH TAB (FP) PEG SCH ×2 (10:45→23:06)
[2016-12-30] MEDS: ATENOLOL 25 MG TABLET (FP) GT SCH (10:45)
[2016-12-30] MEDS: MULTIVIT-MINERALS 236 ML ML GT SCH (10:45)
[2016-12-30] MEDS: SUCRALFATE 1 GM/10 ML UNIT DOSE CUPS PEG SCH ×2 (10:48→23:07)
[2016-12-30] MEDS: FLUTICASONE PROP 0.05% 16 GM NASAL SPRAY NS SCH (10:48)
[2016-12-30 13:45] LABS: URINE APPEARANCE SLCLOUDY; URINE BILIRUBIN NEGATIVE (NEGATIVE); URINE BLOOD NEGATIVE (NEGATIVE); URINE COLOR AMBER; URINE GLUCOSE (UA) 1+ (NEGATIVE); URINE KETONE TRACE (NEGATIVE); URINE NITRITE NEGATIVE (NEGATIVE); URINE UROBILINOGEN NEGATIVE mg/dL (0.2-1.0)
[2016-12-30 13:49] LABS: URINE PROTEIN 1+ (NEGATIVE)
[2016-12-30 13:50] LABS: URINE BACTERIA MODERATE /hpf (NONE SEEN); URINE MUCUS FEW; URINE RBC 8 /hpf (0-3); URINE WBC 15 /hpf (3-5)
--- NOTE | 2016-12-30 14:39 | PN ---
Progress Note (short form) - Note Progress Note: NAD on NC O2. Clinically appears unchanged, but increasing WBC and low grade temps persist. CT evaluation. Intake & Output 12/27/16 12/28/16 12/29/16 12/30/16 23:59 23:59 23:59 23:59 Intake Total 135 1360 1840 Output Total 300 Balance -165 1360 1840 Weight 95 lb 2 oz 97 lb 6 oz 95 lb 12.8 oz 95 lb 3.2 oz Last Vital Signs Temp Pulse Resp BP Pulse Ox 99.6 F 92 H 20 136/76 97 12/30/16 05:51 12/30/16 10:35 12/30/16 05:51 12/30/16 05:51 12/30/16 10:35 Gen: NAD at rest, awake Heart: RRR Lung: decreased breath sounds at the bases Abd: soft, +enterocutaneous fistula Ext: no edema, contracted Laboratory Results - last 24 hr 12/30/16 12/30/16 12/30/16 06:35 06:35 13:35 WBC 18.1 H RBC 3.85 L Hgb 9.6 L D Hct 29.2 L MCV 76.0 L MCH 24.9 L MCHC 32.7 RDW 19.6 H Plt Count 227 MPV 6.9 L Neutrophils % 84.1 H D Lymphocytes % 5.2 L D Monocytes % 9.8 Eosinophils % 0.8 Basophils % 0.1 Sodium 138 Potassium 3.8 Chloride 102 Carbon Dioxide 27 Anion Gap 9 BUN 17 D Creatinine 0.2 L Creat Clearance w eGFR > 60 Random Glucose 122 H D Calcium 8.2 L Total Bilirubin 0.7 AST 4 L D ALT 11 L D Alkaline Phosphatase 51 Total Protein 6.4 Albumin 2.7 L Urine Color [place] Urine Appearance Slcloudy Urine pH 5.0 D Urine Protein 1+ H Urine Glucose (UA) 1+ H Urine Ketones Trace H Urine Blood Negative Urine Nitrite Negative Urine Bilirubin Negative Urine Urobilinogen Negative Urine RBC 8 Urine WBC 15 Ur Epithelial Cells Rare Urine Bacteria Moderate Urine Mucus Few ASSESSMENT AND PLAN: Bowel Perforation Intra-Abdominal Collection/Abscess Mental Retardation Functional Quadriplegia - Remains off ABX coverage per ID - Aspiration precautions - DVT prophylaxis - CT imaging pending Dr Irwin
[2016-12-30] MEDS ORDERED: VANCOMYCIN 1,000 MG in DEXTROSE 5%-WATER - 250 ML IVPB ONE (16:21)
--- NOTE | 2016-12-30 16:23 | PN ---
Progress Note, Physician History of Present Illness: Temp elevation, increased WBC noted Repeat c/s, CT ordered - Current Medication List Current Medications: Active Medications Al Hydroxide/Mg Hydroxide (Mylanta Oral Suspension -) 5 ml PEG ASDIR PRN PRN Reason: DYSPEPSIA Albuterol Sulfate (Ventolin 0.083% Nebulizer Soln -) 1 amp NEB Q4H PRN PRN Reason: SHORT OF BREATH/WHEEZING Atenolol (Tenormin -) 25 mg GT DAILY [facility] Last Admin: 12/30/16 10:45 Dose: 25 mg Baclofen (Lioresal -) 10 mg PEG TID [facility] Last Admin: 12/30/16 14:19 Dose: 10 mg Bisacodyl (Dulcolax Suppository -) 10 mg RC DAILY PRN PRN Reason: CONSTIPATION Calcium Carbonate/Cholecalciferol (Os-Gerald 500+D -) 1 tab PEG TID [facility] Last Admin: 12/30/16 14:19 Dose: 1 tab Ferrous Sulfate (Feosol) 300 mg GT DAILY [facility] Last Admin: 12/30/16 10:44 Dose: 300 mg Fluticasone Propionate (Flonase -) 1 spray NS DAILY [facility] Last Admin: 12/30/16 10:48 Dose: 1 spray Heparin Sodium (Porcine) (Heparin -) 5,000 unit SQ TID [facility] Last Admin: 12/30/16 14:19 Dose: 5,000 unit Vancomycin HCl 1,000 mg/ (Dextrose) 250 mls @ 200 mls/hr IVPB ONCE ONE Stop: 12/30/16 17:35 Aztreonam 0.5 gm/ Dextrose 50 mls @ 100 mls/hr IVPB BID [facility] PRN Reason: Protocol Lactobacillus Acidophilus (Bacid -) 1 tab PEG BID [facility] Last Admin: 12/30/16 10:45 Dose: 1 tab Levetiracetam (Keppra Injection -) 500 mg IVPB BID [facility] Last Admin: 12/30/16 10:44 Dose: 500 mg Metoclopramide HCl (Reglan Oral Solution -) 5 mg PEG BID [facility] Last Admin: 12/30/16 10:43 Dose: 5 mg Tizanidine 4 Mg Tab (- Patient Own Med) 1 each PEG TID [facility] Last Admin: 12/30/16 14:19 Dose: 1 each Gabitril 4 Mg Tab - (Patient Own Med) 4 mg PEG TID [facility] Last Admin: 12/30/16 14:19 Dose: 4 mg Potassium Chloride (Potassium Chloride Oral Liquid) 10 meq PEG DAILY [facility] Last Admin: 12/30/16 10:44 Dose: 10 meq Simethicone (Mylicon Liquid -) 40 mg GT Q6HPO [facility] Last Admin: 12/30/16 12:13 Dose: Not Given Sucralfate (Carafate Oral Suspension -) 1 gm PEG BID [facility] Last Admin: 12/30/16 10:48 Dose: 1 gm - Objective Vital Signs: Vital Signs Temperature 100.4 F H 12/30/16 15:00 Pulse Rate 92 H 12/30/16 15:00 Respiratory Rate 22 12/30/16 15:00 Blood Pressure 124/72 12/30/16 15:00 O2 Sat by Pulse Oximetry (%) 97 12/30/16 10:35 Constitutional: Yes: No Distress Cardiovascular: Yes: Regular Rate and Rhythm, S1, S2 Respiratory: Yes: Diminished Gastrointestinal: Yes: Other (distended, no tenderness elicited) Labs: CBC, BMP 12/30/16 06:35 12/30/16 06:35 INR, PTT INR 1.37 (0.82-1.09) H 12/25/16 16:45 Assessment/Plan Fever/ leukocytosis possible sepsis GI// lung Developmental delay Repeat c/s, CT ordered Empiric aztreonam/ vancomycin
[2016-12-30] MEDS ORDERED: AZTREONAM 0.5 GM in DEXTROSE 5%-WATER - 50 ML IVPB SCH ×2 (16:30→22:00)
[2016-12-30 19:55] LABS: URINE LEUK ESTERASE TRACE (NEGATIVE)
[2016-12-30] MEDS: AZTREONAM 0.5 GM in DEXTROSE 5%-WATER - 50 ML IVPB SCH (23:12)
[2016-12-31] MEDS: SIMETHICONE 40 MG/0.6 ML BOTTLE GT SCH ×7 (00:30→18:10)
[2016-12-31] MEDS ORDERED: PT OWN MED DRAWER 7, Y5N ONE ×11 (00:43→23:21)
[2016-12-31] MEDS: CALCIUM 500MG/VIT-D 200 UNITS COMBO TABLET (FP) PEG SCH ×3 (05:38→22:29)
[2016-12-31] MEDS: HEPARIN NA (PORCINE) 5,000 UNITS/ML 1ML VIAL SQ SCH ×3 (05:38→22:29)
[2016-12-31] MEDS: BACLOFEN 10 MG TABLET (FP) PEG SCH ×3 (05:39→22:29)
[2016-12-31] MEDS: GABITRIL 4 MG PEG SCH ×3 (05:40→22:30)
[2016-12-31] MEDS: TIZANIDINE 4 MG PEG SCH ×3 (05:41→22:32)
[2016-12-31] MEDS ORDERED: INSULIN (NOVOLOG) ASPART 100 UNITS/ML 10ML VIAL ONE (06:44)
[2016-12-31 07:11] LABS: BASOPHIL 0.2 % (0-2.0); EOSINOPHIL 1.4 % (0-4.5); MCH 24.5 pg (25.7-33.7); MCHC 32.2 g/dl (32.0-35.9); MEAN CELL VOLUME 76.1 fl (80-96); MEAN PLT VOLUME 8.1 fl (7.5-11.1); NEUTROPHILS 81.2 % (42.8-82.8); PLATELET COUNT 245 K/MM3 (134-434); WHITE BLOOD COUNT 14.5 K/mm3 (4.0-10.0)
[2016-12-31 07:33] LABS: ALBUMIN 2.9 g/dl (3.4-5.0); ANION GAP 8 (8-16); CO2 29 mmol/L (21-32); GLUCOSE,RANDOM 103 mg/dL (74-106)
[2016-12-31 07:38] LABS: ALK PHOS 61 U/L (45-117); BILIRUBIN,TOTAL 0.6 mg/dL (0.2-1.0); CREATININE 0.2 mg/dL (0.7-1.3); SGOT/AST 6 U/L (15-37); SGPT/ALT 12 U/L (12-78); TOT PROT 7.1 g/dl (6.4-8.2)
[2016-12-31] MEDS ORDERED: ZINC OXIDE/PANTHENOL/VITAMIN E 56 GM TUBE TP PRN (08:25)
--- NOTE | 2016-12-31 08:27 | PN ---
Physical Exam: SUBJECTIVE: Patient seen and examined. He is non verbal at baseline. He is awake, alert at baseline. OBJECTIVE: Patient has increased drainage around tube site with excoriated skin, zinc ointment ordered CT scan of abdomen reviewed WBC 18>14.5: Now back on IV antibiotics as per ID Hyponatremia: NS @ 50cc/hr x 1 bag Zinc ointment and Nystatin for increased drainage around tube Important phone #s Anand PEOPLE MANAGER to call for updates Lulu: [phone] (office), cell Patient's mother and HCP, PLEASE CALL WITH DAILY UPDATES: Nan Causey Vital Signs Period Temp Pulse Resp BP Sys/Bruce Pulse Ox Last 24 Hr 97.5 F-100.7 F 84-100 18-22 108-128/68-87 96-97 GENERAL: The patient is awake, eyes open, vocalizes to verbal and tactile stimuli, smiles, non verbal at baseline HEAD: Normal with no signs of trauma. EYES: PERRL, sclera anicteric, conjunctiva clear. No ptosis. LUNGS: Breath sounds equal, clear to auscultation bilaterally, no wheezes, no crackles, no accessory muscle use. HEART: Regular rate and rhythm, S1, S2 without murmur, rub or gallop. ABDOMEN: Soft, distended; J/G tube in place, appears patent, tolerating feeds, excoriated skin around peg site and now with increased drainage. Seen by GI, peg tube manipulated *If patient's abdomen becomes distended, can put Gtube to low intermittent wall sx as needed* All feeds through J tube, all meds through G tube EXTREMITIES: warm, well-perfused, no edema. upper and lower extremities contracted at baseline. NEURO: at baseline, smiles - non verbal Laboratory Results - last 24 hr 12/30/16 12/31/16 12/31/16 13:35 05:50 05:50 WBC 14.5 H RBC 4.34 Hgb 10.7 L D Hct 33.1 L MCV 76.1 L MCH 24.5 L MCHC 32.2 RDW 20.0 H Plt Count 245 MPV 8.1 D Neutrophils % 81.2 Lymphocytes % 8.2 D Monocytes % 9.0 Eosinophils % 1.4 Basophils % 0.2 Sodium 132 L Potassium 3.7 Chloride 95 L Carbon Dioxide 29 Anion Gap 8 BUN 16 Creatinine 0.2 L Creat Clearance w eGFR > 60 Random Glucose 103 Calcium 9.0 Total Bilirubin 0.6 AST 6 L D ALT 12 Alkaline Phosphatase 61 Total Protein 7.1 Albumin 2.9 L Urine Color [place] Urine Appearance Slcloudy Urine pH 5.0 D Ur Specific [place] >= 1.030 H Urine Protein 1+ H Urine Glucose (UA) 1+ H Urine Ketones Trace H Urine Blood Negative Urine Nitrite Negative Urine Bilirubin Negative Urine Urobilinogen Negative Ur Leukocyte Esterase Trace H Urine RBC 8 Urine WBC 15 Ur Epithelial Cells Rare Urine Bacteria Moderate Urine Mucus Few Active Medications Generic Name Dose Route Start Last Admin Trade Name Freq PRN Reason Stop Dose Admin Al Hydroxide/Mg Hydroxide 5 ml 12/26/16 18:49 Mylanta Oral Suspension - PEG ASDIR PRN DYSPEPSIA Albuterol Sulfate 1 amp 12/26/16 18:49 Ventolin 0.083% Nebulizer Soln - NEB Q4H PRN SHORT OF BREATH/WHEEZING Atenolol 25 mg 12/27/16 10:00 12/30/16 10:45 Tenormin - GT 25 mg DAILY TOSIN Administration Baclofen 10 mg 12/26/16 22:00 12/31/16 05:39 Lioresal - PEG 10 mg TID TOSIN Administration Bisacodyl 10 mg 12/26/16 18:49 Dulcolax Suppository - RC DAILY PRN CONSTIPATION Calcium Carbonate/Cholecalciferol 1 tab 12/26/16 22:00 12/31/16 05:38 Os-Gerald 500+D - PEG 1 tab TID TOSIN Administration Ferrous Sulfate 300 mg 12/27/16 10:00 12/30/16 10:44 Feosol GT 300 mg DAILY TOSIN Administration Fluticasone Propionate 1 spray 12/27/16 10:00 12/30/16 10:48 Flonase - NS 1 spray DAILY TOSIN Administration Heparin Sodium (Porcine) 5,000 unit 12/26/16 22:00 12/31/16 05:38 Heparin - SQ 5,000 unit TID TOSIN Administration Aztreonam 0.5 gm/ Dextrose 50 mls @ 100 mls/hr 12/30/16 16:32 12/30/16 23:12 IVPB 100 mls/hr BID TOSIN Administration Sodium Chloride 1,000 mls @ 50 mls/hr 12/31/16 08:00 Normal Saline - IV 01/01/17 07:54 ASDIR TOSIN Lactobacillus Acidophilus 1 tab 12/26/16 22:00 12/30/16 23:06 Bacid - PEG 1 tab BID TOSIN Administration Levetiracetam 500 mg 12/27/16 23:30 12/30/16 23:06 Keppra Injection - IVPB 500 mg BID TOSIN Administration Metoclopramide HCl 5 mg 12/26/16 22:00 12/30/16 22:55 Reglan Oral Solution - PEG 5 mg BID TOSIN Administration Tizanidine 4 Mg Tab 1 each 12/26/16 22:00 12/31/16 05:41 - Patient Own Med PEG 1 each TID TOSIN Administration Gabitril 4 Mg Tab - 4 mg 12/26/16 22:00 12/31/16 05:40 Patient Own Med PEG 4 mg TID TOSIN Administration Potassium Chloride 10 meq 12/27/16 10:00 12/30/16 10:44 Potassium Chloride Oral Liquid PEG 10 meq DAILY TOSIN Administration Simethicone 40 mg 12/27/16 00:00 12/31/16 05:39 Mylicon Liquid - GT 40 mg Q6HPO TOSIN Administration Sucralfate 1 gm 12/26/16 22:00 12/30/16 23:07 Carafate Oral Suspension - PEG 1 gm BID TOSIN Administration Zinc Oxide/Panthenol/Vitamin E 1 applic 12/31/16 08:25 Balmex Cream - TP ASDIR PRN HYGEINE ASSESSMENT/PLAN: Patient is a 36 year old male (from [place]) with a significant past medical history of congenital quadriplegia, general convulsive epilepsy, profound MR, monocular extropia, nonverbal, severe mental deficit. He was sent to the ED on 12/17/2016 because of hypotension and hypoxia. CT/Abdomen&Pelvis 12/30/2016: (1) circumferential thickening of the urinary bladder wall with perivesical fat stranding compatible with cystitis. No hydro. (2) Percutaneous gastrojejunostomy in place, no SBO, no free air or large drainable collection. (3) Dependent opacities in the left lung base, slightly increased since 12/25/2016, may be atelectasis, pna unable to be excluded. ID/GI: Abdominal distention/suspected abdominal perforation, resolved/ruled out A/P: A suspected bowel perforation seen on initial imaging was subsequently ruled out WBC on admission 20, then began to trend down, however on 12/29, is WBC began to trend up and now with low grade temps Fever source? cdiff vs, abdominal source, vs other CT of abd/pelvis noted above, shoes possible cystitis vs. pneumonia On Azactam and given one dose of Vanco on 12/30/2016 as per ID Blood and urine cultures sent, cdiff ordered on 12/26/2016 he had a new J/G Tube replaced and is now tolerating feeds *If patient's abdomen becomes distended, can put Gtube to low intermittent wall sx as needed* All feeds through J tube, all meds through G tube GI/ID following Neurology: Seizure disorder, chronic A/P: no seizure activity during hospitalization On his home medications via Gtube, also on Keppra which was started during hospitalization Cardiology: Episode of hypotension and bradycardia on 12/25, now resolved A/P: It was suspected that this may have been caused by the combination of atenolol and high dose tizanidine and anemia No further episodes, vitals stable Note that the Tizanidine is now TID, previously QID Hematology: Microcytic Anemia A/P: S/p 2 units of prbc on 12/25/2016 Monitor CBC Functional quadriplegia, chronic A/P: dependent for all ADLs F.E.N. Fluids/Nutrition: tube feeds with free water resumed/Vital 1.2 Electrolytes: replete as indicated Prophylaxis: DVT: Heparin GI: mylanta, reglan, carafate Disposition: Discharge to [place] once medically cleared. Full Code. Visit type - Emergency Visit Emergency Visit: Yes ED Registration Date: 12/17/16 Care time: The patient presented to the Emergency Department on the above date and was hospitalized for further evaluation of their emergent condition. - New Patient This patient is new to me today: No - Critical Care Critical Care patient: No - Discharge Referral Referred to [facility] No
--- NOTE | 2016-12-31 09:00 | PN ---
Progress Note (short form) - Note Progress Note: Celled to evaluate leaking GJ tube track. [place], normal looking stoma, however the skin around the track is excoriated and erythematous. Clear mucous with specs of old blood noted around the track. The bumper was adjusted however not too tight to avoid necrosis. Keep the area dry, Apply topical antifungal. Problem List - Problems (1) Perforated small intestine Code(s): K63.1 - PERFORATION OF INTESTINE (NONTRAUMATIC) (2) Anemia Code(s): D64.9 - ANEMIA, UNSPECIFIED Qualifiers: Anemia type: acquired or hereditary hemolytic anemia Hemolytic anemia type: acquired, nonautoimmune, other Qualified Code(s): D59.4 - Other nonautoimmune hemolytic anemias; D59.4 - Other nonautoimmune hemolytic anemias; D59.4 - Other nonautoimmune hemolytic anemias; D59.4 - Other nonautoimmune hemolytic anemias
[2016-12-31] MEDS: SODIUM CHLORIDE 1,000 ML IV SCH (09:07)
--- NOTE | 2016-12-31 10:19 | PN ---
Progress Note, Physician History of Present Illness: Appears more comfortable today Low grade fever WBC improved Cultures pending CT shows possible cystitis - Current Medication List Current Medications: Active Medications Al Hydroxide/Mg Hydroxide (Mylanta Oral Suspension -) 5 ml PEG ASDIR PRN PRN Reason: DYSPEPSIA Albuterol Sulfate (Ventolin 0.083% Nebulizer Soln -) 1 amp NEB Q4H PRN PRN Reason: SHORT OF BREATH/WHEEZING Atenolol (Tenormin -) 25 mg GT DAILY [facility] Last Admin: 12/30/16 10:45 Dose: 25 mg Baclofen (Lioresal -) 10 mg PEG TID [facility] Last Admin: 12/31/16 05:39 Dose: 10 mg Bisacodyl (Dulcolax Suppository -) 10 mg RC DAILY PRN PRN Reason: CONSTIPATION Calcium Carbonate/Cholecalciferol (Os-Gerald 500+D -) 1 tab PEG TID [facility] Last Admin: 12/31/16 05:38 Dose: 1 tab Ferrous Sulfate (Feosol) 300 mg GT DAILY [facility] Last Admin: 12/30/16 10:44 Dose: 300 mg Fluticasone Propionate (Flonase -) 1 spray NS DAILY [facility] Last Admin: 12/30/16 10:48 Dose: 1 spray Heparin Sodium (Porcine) (Heparin -) 5,000 unit SQ TID [facility] Last Admin: 12/31/16 05:38 Dose: 5,000 unit Aztreonam 0.5 gm/ Dextrose 50 mls @ 100 mls/hr IVPB BID [facility] Last Admin: 12/30/16 23:12 Dose: 100 mls/hr Sodium Chloride (Normal Saline -) 1,000 mls @ 50 mls/hr IV ASDIR [facility] Stop: 01/01/17 07:54 Last Admin: 12/31/16 09:07 Dose: 50 mls/hr Lactobacillus Acidophilus (Bacid -) 1 tab PEG BID [facility] Last Admin: 12/30/16 23:06 Dose: 1 tab Levetiracetam (Keppra Injection -) 500 mg IVPB BID [facility] Last Admin: 12/30/16 23:06 Dose: 500 mg Metoclopramide HCl (Reglan Oral Solution -) 5 mg PEG BID [facility] Last Admin: 12/30/16 22:55 Dose: 5 mg Tizanidine 4 Mg Tab (- Patient Own Med) 1 each PEG TID [facility] Last Admin: 12/31/16 05:41 Dose: 1 each Gabitril 4 Mg Tab - (Patient Own Med) 4 mg PEG TID [facility] Last Admin: 12/31/16 05:40 Dose: 4 mg Potassium Chloride (Potassium Chloride Oral Liquid) 10 meq PEG DAILY [facility] Last Admin: 12/30/16 10:44 Dose: 10 meq Simethicone (Mylicon Liquid -) 40 mg GT Q6HPO [facility] Last Admin: 12/31/16 05:39 Dose: 40 mg Sucralfate (Carafate Oral Suspension -) 1 gm PEG BID [facility] Last Admin: 12/30/16 23:07 Dose: 1 gm Zinc Oxide/Panthenol/Vitamin E (Balmex Cream -) 1 applic TP ASDIR PRN PRN Reason: HYGEINE - Objective Vital Signs: Vital Signs Temperature 98.2 F 12/31/16 09:53 Pulse Rate 88 12/31/16 09:53 Respiratory Rate 20 12/31/16 09:53 Blood Pressure 126/89 12/31/16 09:53 O2 Sat by Pulse Oximetry (%) 97 12/30/16 21:00 Constitutional: Yes: No Distress Cardiovascular: Yes: Regular Rate and Rhythm, S1, S2 Respiratory: Yes: Diminished Gastrointestinal: Yes: Normal Bowel Sounds, Soft, Other (distended + feeding tube drainage) Labs: CBC, BMP 12/31/16 05:50 12/31/16 05:50 INR, PTT INR 1.37 (0.82-1.09) H 12/25/16 16:45 Assessment/Plan Fever/ leukocytosis possible sepsis GI// lung Developmental delay Await c/s Empiric aztreonam/ vancomycin
[2016-12-31] MEDS ORDERED: NYSTATIN POWDER 100,000 UNITS/GM - 15 GM TOPICAL POWDER TP SCH (10:30)
[2016-12-31] MEDS: AZTREONAM 0.5 GM in DEXTROSE 5%-WATER - 50 ML IVPB SCH ×2 (10:36→22:29)
[2016-12-31] MEDS: SUCRALFATE 1 GM/10 ML UNIT DOSE CUPS PEG SCH ×2 (10:36→22:29)
[2016-12-31] MEDS: LACTOBACILLUS ACIDOPHILUS 1 EACH TAB (FP) PEG SCH ×2 (10:37→22:29)
[2016-12-31] MEDS: METOCLOPRAMIDE HCL 5 MG/5 ML UNIT DOSE CUP PEG SCH ×2 (10:37→23:27)
[2016-12-31] MEDS: ATENOLOL 25 MG TABLET (FP) GT SCH (10:37)
[2016-12-31] MEDS: FERROUS SO4 300 MG/5 ML ORAL SOLN UNIT DOSE CUPS GT SCH (10:37)
[2016-12-31] MEDS: FLUTICASONE PROP 0.05% 16 GM NASAL SPRAY NS SCH (10:39)
[2016-12-31] MEDS: levETIRAcetam 500 MG/5 ML INJECTION VIAL IVPB SCH ×2 (10:47→22:29)
[2016-12-31] MEDS ORDERED: VANCOMYCIN 1,000 MG in DEXTROSE 5%-WATER - 250 ML IVPB ONE (12:00)
[2016-12-31] MEDS: POTASSIUM CHLORIDE ORAL LIQUID 20 MEQ/15 ML PEG SCH (13:14)
[2016-12-31] MEDS: MULTIVIT-MINERALS 236 ML ML GT SCH (13:14)
[2016-12-31] MEDS: NYSTATIN POWDER 100,000 UNITS/GM - 15 GM TOPICAL POWDER TP SCH (13:43)
[2017-01-01] MEDS: SIMETHICONE 40 MG/0.6 ML BOTTLE GT SCH ×4 (00:10→18:07)
[2017-01-01] MEDS: BACLOFEN 10 MG TABLET (FP) PEG SCH ×3 (06:14→22:06)
[2017-01-01] MEDS: HEPARIN NA (PORCINE) 5,000 UNITS/ML 1ML VIAL SQ SCH ×3 (06:14→22:07)
[2017-01-01] MEDS: CALCIUM 500MG/VIT-D 200 UNITS COMBO TABLET (FP) PEG SCH ×3 (06:14→22:06)
[2017-01-01] MEDS: GABITRIL 4 MG PEG SCH ×3 (06:15→22:08)
[2017-01-01] MEDS: TIZANIDINE 4 MG PEG SCH ×3 (06:15→22:07)
[2017-01-01] MEDS: SODIUM CHLORIDE 1,000 ML IV SCH (07:01)
[2017-01-01 08:34] LABS: BASOPHIL 0.8 % (0-2.0); EOSINOPHIL 1.3 % (0-4.5); MCHC 33.1 g/dl (32.0-35.9); MEAN CELL VOLUME 75.4 fl (80-96); MEAN PLT VOLUME 7.3 fl (7.5-11.1); NEUTROPHILS 79.6 % (42.8-82.8); PLATELET COUNT 268 K/MM3 (134-434); RDW 19.7 % (11.9-15.9); WHITE BLOOD COUNT 6.8 K/mm3 (4.0-10.0)
--- NOTE | 2017-01-01 08:48 | PN ---
Progress Note (short form) - Note Progress Note: NAD on NC O2. Remained afebrile overnight. No acute events overnight. Intake & Output 12/29/16 12/30/16 12/31/16 01/01/17 23:59 23:59 23:59 23:59 Intake Total 1840 1560 2535 Output Total 0 Balance 1840 1560 2535 Weight 95 lb 12.8 oz 95 lb 3.2 oz Last Vital Signs Temp Pulse Resp BP Pulse Ox 98.5 F 88 18 148/89 100 01/01/17 06:00 01/01/17 06:00 01/01/17 06:00 01/01/17 06:00 12/31/16 21:00 Active Medications Al Hydroxide/Mg Hydroxide (Mylanta Oral Suspension -) 5 ml PEG ASDIR PRN PRN Reason: DYSPEPSIA Atenolol (Tenormin -) 25 mg GT DAILY [facility] Last Admin: 12/31/16 10:37 Dose: 25 mg Baclofen (Lioresal -) 10 mg PEG TID [facility] Last Admin: 01/01/17 06:14 Dose: 10 mg Bisacodyl (Dulcolax Suppository -) 10 mg RC DAILY PRN PRN Reason: CONSTIPATION Calcium Carbonate/Cholecalciferol (Os-Gerald 500+D -) 1 tab PEG TID [facility] Last Admin: 01/01/17 06:14 Dose: 1 tab Ferrous Sulfate (Feosol) 300 mg GT DAILY [facility] Last Admin: 12/31/16 10:37 Dose: 300 mg Fluticasone Propionate (Flonase -) 1 spray NS DAILY [facility] Last Admin: 12/31/16 10:39 Dose: 1 spray Heparin Sodium (Porcine) (Heparin -) 5,000 unit SQ TID [facility] Last Admin: 01/01/17 06:14 Dose: 5,000 unit Aztreonam 0.5 gm/ Dextrose 50 mls @ 100 mls/hr IVPB BID [facility] Last Admin: 12/31/16 22:29 Dose: 100 mls/hr Lactobacillus Acidophilus (Bacid -) 1 tab PEG BID [facility] Last Admin: 12/31/16 22:29 Dose: 1 tab Levetiracetam (Keppra Injection -) 500 mg IVPB BID [facility] Last Admin: 12/31/16 22:29 Dose: 500 mg Metoclopramide HCl (Reglan Oral Solution -) 5 mg PEG BID [facility] Last Admin: 12/31/16 23:27 Dose: 5 mg Tizanidine 4 Mg Tab (- Patient Own Med) 1 each PEG TID [facility] Last Admin: 01/01/17 06:15 Dose: 1 each Gabitril 4 Mg Tab - (Patient Own Med) 4 mg PEG TID [facility] Last Admin: 01/01/17 06:15 Dose: 4 mg Nystatin (Nystop Powder -) 1 applic TP DAILY [facility] Last Admin: 12/31/16 13:43 Dose: 1 applic Potassium Chloride (Potassium Chloride Oral Liquid) 10 meq PEG DAILY [facility] Last Admin: 12/31/16 13:14 Dose: 10 meq Simethicone (Mylicon Liquid -) 40 mg GT Q6HPO [facility] Last Admin: 01/01/17 06:14 Dose: 40 mg Sucralfate (Carafate Oral Suspension -) 1 gm PEG BID [facility] Last Admin: 12/31/16 22:29 Dose: 1 gm Zinc Oxide/Panthenol/Vitamin E (Balmex Cream -) 1 applic TP ASDIR PRN PRN Reason: HYGEINE Gen: NAD at rest, awake Heart: RRR Lung: decreased breath sounds at the bases Abd: soft, +enterocutaneous fistula Ext: no edema, contracted ASSESSMENT AND PLAN: Bowel Perforation Intra-Abdominal Collection/Abscess Mental Retardation Functional Quadriplegia - ABX coverage per ID - Aspiration precautions - DVT prophylaxis - AEDs Dr Irwin
[2017-01-01 09:09] LABS: ALBUMIN 2.8 g/dl (3.4-5.0); ALK PHOS 52 U/L (45-117); ANION GAP 10 (8-16); BILIRUBIN,TOTAL 0.4 mg/dL (0.2-1.0); CALCIUM 8.6 mg/dL (8.5-10.1); CO2 27 mmol/L (21-32); CREATININE < 0.2 mg/dL (0.7-1.3); GLUCOSE,RANDOM 108 mg/dL (74-106); MAGNESIUM 1.7 mg/dL (1.8-2.4); SGOT/AST 5 U/L (15-37); SGPT/ALT 11 U/L (12-78)
--- NOTE | 2017-01-01 09:13 | PN ---
Progress Note (short form) - Note Progress Note: Subjective: Patient seen and examined at the bedside, he is non-verbal at baseline. He is awake and smiling. Current Medications Generic Name Dose Route Start Last Admin Trade Name Freq PRN Reason Stop Dose Admin Al Hydroxide/Mg Hydroxide 5 ml 12/26/16 18:49 Mylanta Oral Suspension - PEG ASDIR PRN DYSPEPSIA Atenolol 25 mg 12/27/16 10:00 12/31/16 10:37 Tenormin - GT 25 mg DAILY [facility] Administration Baclofen 10 mg 12/26/16 22:00 01/01/17 06:14 Lioresal - PEG 10 mg TID [facility] Administration Bisacodyl 10 mg 12/26/16 18:49 Dulcolax Suppository - RC DAILY PRN CONSTIPATION Calcium Carbonate/Cholecalciferol 1 tab 12/26/16 22:00 01/01/17 06:14 Os-Gerald 500+D - PEG 1 tab TID [facility] Administration Ferrous Sulfate 300 mg 12/27/16 10:00 12/31/16 10:37 Feosol GT 300 mg DAILY [facility] Administration Fluticasone Propionate 1 spray 12/27/16 10:00 12/31/16 10:39 Flonase - NS 1 spray DAILY [facility] Administration Heparin Sodium (Porcine) 5,000 unit 12/26/16 22:00 01/01/17 06:14 Heparin - SQ 5,000 unit TID [facility] Administration Aztreonam 0.5 gm/ Dextrose 50 mls @ 100 mls/hr 12/30/16 16:32 12/31/16 22:29 IVPB 100 mls/hr BID [facility] Administration Lactobacillus Acidophilus 1 tab 12/26/16 22:00 12/31/16 22:29 Bacid - PEG 1 tab BID [facility] Administration Levetiracetam 500 mg 12/27/16 23:30 12/31/16 22:29 Keppra Injection - IVPB 500 mg BID [facility] Administration Metoclopramide HCl 5 mg 12/26/16 22:00 12/31/16 23:27 Reglan Oral Solution - PEG 5 mg BID [facility] Administration Tizanidine 4 Mg Tab 1 each 12/26/16 22:00 01/01/17 06:15 - Patient Own Med PEG 1 each TID [facility] Administration Gabitril 4 Mg Tab - 4 mg 12/26/16 22:00 10/12/17 06:15 Patient Own Med PEG 4 mg TID [facility] Administration Nystatin 1 applic 12/31/16 10:30 12/31/16 13:43 Nystop Powder - TP 1 applic DAILY [facility] Administration Potassium Chloride 10 meq 12/27/16 10:00 12/31/16 13:14 Potassium Chloride Oral Liquid PEG 10 meq DAILY [facility] Administration Simethicone 40 mg 12/27/16 00:00 01/01/17 06:14 Mylicon Liquid - GT 40 mg Q6HPO [facility] Administration Sucralfate 1 gm 12/26/16 22:00 12/31/16 22:29 Carafate Oral Suspension - PEG 1 gm BID [facility] Administration Zinc Oxide/Panthenol/Vitamin E 1 applic 12/31/16 08:25 Balmex Cream - TP ASDIR PRN HYGEINE Objective: Vital Signs Period Temp Pulse Resp BP Sys/Bruce Pulse Ox Last 24 Hr 98 F-975 F 72-88 18-20 91-148/51-89 100-100 Physical Exam: General: NAD, opens eyes and smiles Lungs: CTA bilaterally Heart: RRR, S1S2 Abd: J/G tube in place, excoriated skin surrounding. Soft, non-tender, non- distended Ext: Contracted Neuro: Unable to assess CN CBCD WBC 6.8 K/mm3 (4.0-10.0) D 01/01/17 08:05 RBC 4.26 M/mm3 (4.00-5.60) 01/01/17 08:05 Hgb 10.6 GM/dL (11.7-16.9) L 01/01/17 08:05 Hct 32.1 % (35.4-49) L 01/01/17 08:05 MCV 75.4 fl (80-96) L 01/01/17 08:05 MCHC 33.1 g/dl (32.0-35.9) 01/01/17 08:05 RDW 19.7 % (11.9-15.9) H 01/01/17 08:05 Plt Count 268 K/MM3 (134-434) 01/01/17 08:05 MPV 7.3 fl (7.5-11.1) L 01/01/17 08:05 CMP Sodium 132 mmol/L (136-145) L 12/31/16 05:50 Potassium 3.7 mmol/L (3.5-5.1) 12/31/16 05:50 Chloride 95 mmol/L (98-107) L 12/31/16 05:50 Carbon Dioxide 29 mmol/L (21-32) 12/31/16 05:50 Anion Gap 8 (8-16) 12/31/16 05:50 BUN 16 mg/dL (7-18) 12/31/16 05:50 Creatinine 0.2 mg/dL (0.7-1.3) L 12/31/16 05:50 Creat Clearance w eGFR > 60 (>60) 12/31/16 05:50 Random Glucose 103 mg/dL (74-106) 12/31/16 05:50 Calcium 9.0 mg/dL (8.5-10.1) 12/31/16 05:50 Total Bilirubin 0.6 mg/dL (0.2-1.0) 12/31/16 05:50 AST 6 U/L (15-37) L D 12/31/16 05:50 ALT 12 U/L (12-78) 12/31/16 05:50 Alkaline Phosphatase 61 U/L (45-117) 12/31/16 05:50 Total Protein 7.1 g/dl (6.4-8.2) 12/31/16 05:50 Albumin 2.9 g/dl (3.4-5.0) L 12/31/16 05:50 CARDIAC ENZYMES Creatine Kinase 78 IU/L (39-308) 12/16/16 22:44 Troponin I < 0.02 ng/ml (0.00-0.05) 12/25/16 16:45 Microbiology 12/30/16 09:25 Blood - Peripheral Venous Blood Culture - Preliminary NO GROWTH OBTAINED AFTER 24 HOURS, INCUBATION TO CONTINUE FOR 4 DAYS. 12/30/16 09:25 Blood - Peripheral Venous Blood Culture - Preliminary NO GROWTH OBTAINED AFTER 24 HOURS, INCUBATION TO CONTINUE FOR 4 DAYS. 12/30/16 13:35 Urine - Urine - Catheterized Urine Culture - Final Contaminated: Please Repeat 12/25/16 16:45 Blood - Peripheral Venous Blood Culture - Final NO GROWTH AFTER 5 DAYS INCUBATION 12/25/16 16:45 Blood - Peripheral Venous Blood Culture - Final NO GROWTH AFTER 5 DAYS INCUBATION 12/25/16 23:00 Sputum - Expectorated Gram Stain - Final 12/25/16 23:00 Sputum - Expectorated Sputum Culture - Final Klebsiella Pneumoniae Pseudomonas Aeruginosa 12/25/16 21:20 Urine - Urine Sam Urine Culture - Final NO GROWTH OBTAINED 12/20/16 10:35 Rectal Swab VRE Culture - Final Vanco Resistant Enterococcus 12/17/16 05:49 Blood - Peripheral Venous Blood Culture - Final NO GROWTH AFTER 5 DAYS INCUBATION 12/17/16 05:49 Blood - Peripheral Venous Blood Culture - Final NO GROWTH AFTER 5 DAYS INCUBATION 12/17/16 05:20 Abdomen Gram Stain - Final 12/17/16 05:20 Abdomen Wound Culture - Final NO GROWTH AFTER 48 HOURS INCUBATION 12/16/16 23:00 Urine - Urine - Catheterized Urine Culture - Final NO GROWTH OBTAINED Assessment: This is a 36 year old male from [facility] with PMHx of congenital quadriplegia, general convulsive epilepsy, profound MR, monocular extropia, nonverbal, and severe mental deficits. Admitted for suspected abdominal infection. Hospital course complicated on 12/26 by episode of severe hypotension and bradycardia and an increase in WBC Plan: 1) ID: Leukocytosis, fever - CT shows possible cystitis - Started on empiric aztreonam and vancomycin (12/30- ) - WBC wnl today, afebrile - Continue to monitor Abdominal infection, resolved - Initial imaging suggested a possible bowel perforation but this was subsequently ruled out by Dr. Rausch in two flouroscopic exams and susequent CT imaging - Completed course of Zosyn 12/22 Pulmonary bacterial colonization - Sputum cultures grew Klebsiella and Pseudomonas - Seen and evaluated by ID, this is considered colonization, no treatment 2) GI: J/G tube replacement 12/26 - Working well - Excoriated skin surrounding, will place barrier cream on skin to prevent further excoriation 3) Neurology: Seizure disorder - No seizure activity - Continue home medication 4) Cardiology: HTN - Continue antihypertensives with hold parameters 5) Heme: Iron deficiency anemia - Continue ferrous sulfate 6) F/E/N: - Monitor electrolytes - Continue tube feeds - Hypomagnesemia: replete - Hyponatremia: d/c IV fluids 7) Prophylaxis: - Functional quadriplegia: dependent for all ADLs - Heparin 5,000u sq tid 8) Dispo: - Requires continued inpatient care - Still on IV abx CODE STATUS: FULL CODE Visit type - Emergency Visit Emergency Visit: Yes ED Registration Date: 12/17/16 Care time: The patient presented to the Emergency Department on the above date and was hospitalized for further evaluation of their emergent condition. - New Patient This patient is new to me today: Yes Date on this admission: 01/01/17 - Critical Care Critical Care patient: No
[2017-01-01] MEDS ORDERED: PT OWN MED DRAWER 7, Y5N ONE ×3 (09:18→17:11)
[2017-01-01] MEDS: METOCLOPRAMIDE HCL 5 MG/5 ML UNIT DOSE CUP PEG SCH ×2 (09:30→22:06)
[2017-01-01] MEDS: SUCRALFATE 1 GM/10 ML UNIT DOSE CUPS PEG SCH ×2 (09:30→22:07)
[2017-01-01] MEDS: FERROUS SO4 300 MG/5 ML ORAL SOLN UNIT DOSE CUPS GT SCH (09:31)
[2017-01-01] MEDS: levETIRAcetam 500 MG/5 ML INJECTION VIAL IVPB SCH ×2 (09:31→22:07)
[2017-01-01] MEDS: LACTOBACILLUS ACIDOPHILUS 1 EACH TAB (FP) PEG SCH ×2 (09:31→22:06)
[2017-01-01] MEDS: AZTREONAM 0.5 GM in DEXTROSE 5%-WATER - 50 ML IVPB SCH ×2 (09:32→22:06)
[2017-01-01] MEDS: NYSTATIN POWDER 100,000 UNITS/GM - 15 GM TOPICAL POWDER TP SCH (09:33)
[2017-01-01] MEDS: FLUTICASONE PROP 0.05% 16 GM NASAL SPRAY NS SCH (09:34)
[2017-01-01] MEDS: POTASSIUM CHLORIDE ORAL LIQUID 20 MEQ/15 ML PEG SCH (09:38)
[2017-01-01] MEDS: MULTIVIT-MINERALS 236 ML ML GT SCH (11:33)
[2017-01-01] MEDS: ATENOLOL 25 MG TABLET (FP) GT SCH (11:34)
[2017-01-01] MEDS ORDERED: MAGNESIUM OXIDE 400 MG TABLET (FP) GT ONE (12:00)
[2017-01-01] MEDS ORDERED: ACETAMINOPHEN 650 MG/20.3 ML ORAL SOLUTION (CUPS) GT ONE (12:15)
[2017-01-02] MEDS: SIMETHICONE 40 MG/0.6 ML BOTTLE GT SCH ×5 (00:18→23:15)
[2017-01-02] MEDS: TIZANIDINE 4 MG PEG SCH ×3 (05:40→21:06)
[2017-01-02] MEDS: CALCIUM 500MG/VIT-D 200 UNITS COMBO TABLET (FP) PEG SCH ×3 (05:40→21:01)
[2017-01-02] MEDS: BACLOFEN 10 MG TABLET (FP) PEG SCH ×3 (05:40→21:01)
[2017-01-02] MEDS: GABITRIL 4 MG PEG SCH ×3 (05:40→21:06)
[2017-01-02] MEDS: HEPARIN NA (PORCINE) 5,000 UNITS/ML 1ML VIAL SQ SCH ×3 (05:41→21:02)
[2017-01-02 08:37] LABS: MCHC 33.2 g/dl (32.0-35.9); MEAN CELL VOLUME 75.5 fl (80-96); MEAN PLT VOLUME 6.7 fl (7.5-11.1); PLATELET COUNT 271 K/MM3 (134-434); RDW 19.3 % (11.9-15.9); WHITE BLOOD COUNT 4.4 K/mm3 (4.0-10.0)
[2017-01-02 09:06] LABS: ALBUMIN 2.6 g/dl (3.4-5.0); ALK PHOS 49 U/L (45-117); ANION GAP 8 (8-16); BILIRUBIN,TOTAL 0.3 mg/dL (0.2-1.0); CALCIUM 8.9 mg/dL (8.5-10.1); CO2 30 mmol/L (21-32); CREATININE 0.2 mg/dL (0.7-1.3); GLUCOSE,RANDOM 127 mg/dL (74-106); MAGNESIUM 1.9 mg/dL (1.8-2.4); SGOT/AST 7 U/L (15-37); SGPT/ALT 12 U/L (12-78); TOT PROT 6.7 g/dl (6.4-8.2)
[2017-01-02] MEDS ORDERED: PT OWN MED DRAWER 7, Y5N ONE ×4 (09:41→18:00)
--- NOTE | 2017-01-02 09:49 | PN ---
Progress Note (short form) - Note Progress Note: Subjective: Patient seen and examined at the bedside, he is non-verbal at baseline. He is awake and smiling. Current Medications Generic Name Dose Route Start Last Admin Trade Name Freq PRN Reason Stop Dose Admin Al Hydroxide/Mg Hydroxide 5 ml 12/26/16 18:49 Mylanta Oral Suspension - PEG ASDIR PRN DYSPEPSIA Atenolol 25 mg 12/27/16 10:00 12/31/16 10:37 Tenormin - GT 25 mg DAILY [facility] Administration Baclofen 10 mg 12/26/16 22:00 01/01/17 06:14 Lioresal - PEG 10 mg TID [facility] Administration Bisacodyl 10 mg 12/26/16 18:49 Dulcolax Suppository - RC DAILY PRN CONSTIPATION Calcium Carbonate/Cholecalciferol 1 tab 12/26/16 22:00 01/01/17 06:14 Os-Gerald 500+D - PEG 1 tab TID [facility] Administration Ferrous Sulfate 300 mg 12/27/16 10:00 12/31/16 10:37 Feosol GT 300 mg DAILY [facility] Administration Fluticasone Propionate 1 spray 12/27/16 10:00 12/31/16 10:39 Flonase - NS 1 spray DAILY [facility] Administration Heparin Sodium (Porcine) 5,000 unit 12/26/16 22:00 01/01/17 06:14 Heparin - SQ 5,000 unit TID [facility] Administration Aztreonam 0.5 gm/ Dextrose 50 mls @ 100 mls/hr 12/30/16 16:32 12/31/16 22:29 IVPB 100 mls/hr BID [facility] Administration Lactobacillus Acidophilus 1 tab 12/26/16 22:00 12/31/16 22:29 Bacid - PEG 1 tab BID [facility] Administration Levetiracetam 500 mg 12/27/16 23:30 12/31/16 22:29 Keppra Injection - IVPB 500 mg BID [facility] Administration Metoclopramide HCl 5 mg 12/26/16 22:00 12/31/16 23:27 Reglan Oral Solution - PEG 5 mg BID [facility] Administration Tizanidine 4 Mg Tab 1 each 12/26/16 22:00 01/01/17 06:15 - Patient Own Med PEG 1 each TID [facility] Administration Gabitril 4 Mg Tab - 4 mg 12/26/16 22:00 10/12/17 06:15 Patient Own Med PEG 4 mg TID [facility] Administration Nystatin 1 applic 12/31/16 10:30 12/31/16 13:43 Nystop Powder - TP 1 applic DAILY [facility] Administration Potassium Chloride 10 meq 12/27/16 10:00 12/31/16 13:14 Potassium Chloride Oral Liquid PEG 10 meq DAILY [facility] Administration Simethicone 40 mg 12/27/16 00:00 01/01/17 06:14 Mylicon Liquid - GT 40 mg Q6HPO [facility] Administration Sucralfate 1 gm 12/26/16 22:00 12/31/16 22:29 Carafate Oral Suspension - PEG 1 gm BID [facility] Administration Zinc Oxide/Panthenol/Vitamin E 1 applic 12/31/16 08:25 Balmex Cream - TP ASDIR PRN HYGEINE Objective: Vital Signs Period Temp Pulse Resp BP Sys/Bruce Pulse Ox Last 24 Hr 98 F-975 F 72-88 18-20 91-148/51-89 100-100 Physical Exam: General: NAD, opens eyes and smiles Lungs: CTA bilaterally Heart: RRR, S1S2 Abd: J/G tube in place, excoriated skin surrounding. Soft, non-tender, non- distended Ext: Contracted Neuro: Unable to assess CN CBCD WBC 6.8 K/mm3 (4.0-10.0) D 01/01/17 08:05 RBC 4.26 M/mm3 (4.00-5.60) 01/01/17 08:05 Hgb 10.6 GM/dL (11.7-16.9) L 01/01/17 08:05 Hct 32.1 % (35.4-49) L 01/01/17 08:05 MCV 75.4 fl (80-96) L 01/01/17 08:05 MCHC 33.1 g/dl (32.0-35.9) 01/01/17 08:05 RDW 19.7 % (11.9-15.9) H 01/01/17 08:05 Plt Count 268 K/MM3 (134-434) 01/01/17 08:05 MPV 7.3 fl (7.5-11.1) L 01/01/17 08:05 CMP Sodium 132 mmol/L (136-145) L 12/31/16 05:50 Potassium 3.7 mmol/L (3.5-5.1) 12/31/16 05:50 Chloride 95 mmol/L (98-107) L 12/31/16 05:50 Carbon Dioxide 29 mmol/L (21-32) 12/31/16 05:50 Anion Gap 8 (8-16) 12/31/16 05:50 BUN 16 mg/dL (7-18) 12/31/16 05:50 Creatinine 0.2 mg/dL (0.7-1.3) L 12/31/16 05:50 Creat Clearance w eGFR > 60 (>60) 12/31/16 05:50 Random Glucose 103 mg/dL (74-106) 12/31/16 05:50 Calcium 9.0 mg/dL (8.5-10.1) 12/31/16 05:50 Total Bilirubin 0.6 mg/dL (0.2-1.0) 12/31/16 05:50 AST 6 U/L (15-37) L D 12/31/16 05:50 ALT 12 U/L (12-78) 12/31/16 05:50 Alkaline Phosphatase 61 U/L (45-117) 12/31/16 05:50 Total Protein 7.1 g/dl (6.4-8.2) 12/31/16 05:50 Albumin 2.9 g/dl (3.4-5.0) L 12/31/16 05:50 CARDIAC ENZYMES Creatine Kinase 78 IU/L (39-308) 12/16/16 22:44 Troponin I < 0.02 ng/ml (0.00-0.05) 12/25/16 16:45 Microbiology 12/30/16 09:25 Blood - Peripheral Venous Blood Culture - Preliminary NO GROWTH OBTAINED AFTER 24 HOURS, INCUBATION TO CONTINUE FOR 4 DAYS. 12/30/16 09:25 Blood - Peripheral Venous Blood Culture - Preliminary NO GROWTH OBTAINED AFTER 24 HOURS, INCUBATION TO CONTINUE FOR 4 DAYS. 12/30/16 13:35 Urine - Urine - Catheterized Urine Culture - Final Contaminated: Please Repeat 12/25/16 16:45 Blood - Peripheral Venous Blood Culture - Final NO GROWTH AFTER 5 DAYS INCUBATION 12/25/16 16:45 Blood - Peripheral Venous Blood Culture - Final NO GROWTH AFTER 5 DAYS INCUBATION 12/25/16 23:00 Sputum - Expectorated Gram Stain - Final 12/25/16 23:00 Sputum - Expectorated Sputum Culture - Final Klebsiella Pneumoniae Pseudomonas Aeruginosa 12/25/16 21:20 Urine - Urine Sam Urine Culture - Final NO GROWTH OBTAINED 12/20/16 10:35 Rectal Swab VRE Culture - Final Vanco Resistant Enterococcus 12/17/16 05:49 Blood - Peripheral Venous Blood Culture - Final NO GROWTH AFTER 5 DAYS INCUBATION 12/17/16 05:49 Blood - Peripheral Venous Blood Culture - Final NO GROWTH AFTER 5 DAYS INCUBATION 12/17/16 05:20 Abdomen Gram Stain - Final 12/17/16 05:20 Abdomen Wound Culture - Final NO GROWTH AFTER 48 HOURS INCUBATION 12/16/16 23:00 Urine - Urine - Catheterized Urine Culture - Final NO GROWTH OBTAINED Assessment: This is a 36 year old male from [facility] with PMHx of congenital quadriplegia, general convulsive epilepsy, profound MR, monocular extropia, nonverbal, and severe mental deficits. Admitted for suspected abdominal infection. Hospital course complicated on 12/26 by episode of severe hypotension and bradycardia and an increase in WBC Plan: 1) ID: Leukocytosis, fever - Tmax 101.2 yesterday - CT shows possible cystitis - Aztreonam bid - Vancomycin 12/30, 12/31 - WBC wnl today - Continue to monitor Abdominal infection, resolved - Initial imaging suggested a possible bowel perforation but this was subsequently ruled out by Dr. Rausch in two flouroscopic exams and susequent CT imaging - Completed course of Zosyn 12/22 Pulmonary bacterial colonization - Sputum cultures grew Klebsiella and Pseudomonas - Seen and evaluated by ID, this is considered colonization, no treatment 2) GI: J/G tube replacement 12/26 - Working well - Excoriated skin surrounding, will place barrier cream on skin to prevent further excoriation 3) Neurology: Seizure disorder - No seizure activity - Continue home medication 4) Cardiology: HTN - Continue antihypertensives with hold parameters 5) Heme: Iron deficiency anemia - Continue ferrous sulfate 6) F/E/N: - Monitor electrolytes - Continue tube feeds - Hypomagnesemia: resolved - Hyponatremia: improving 7) Prophylaxis: - Functional quadriplegia: dependent for all ADLs - Heparin 5,000u sq tid 8) Dispo: - Requires continued inpatient care - Still on IV abx CODE STATUS: FULL CODE Visit type - Emergency Visit Emergency Visit: Yes ED Registration Date: 12/17/16 Care time: The patient presented to the Emergency Department on the above date and was hospitalized for further evaluation of their emergent condition. - New Patient This patient is new to me today: No - Critical Care Critical Care patient: No
[2017-01-02] MEDS: POTASSIUM CHLORIDE ORAL LIQUID 20 MEQ/15 ML PEG SCH (09:58)
[2017-01-02] MEDS: METOCLOPRAMIDE HCL 5 MG/5 ML UNIT DOSE CUP PEG SCH ×2 (09:58→21:01)
[2017-01-02] MEDS: MULTIVIT-MINERALS 236 ML ML GT SCH (09:58)
[2017-01-02] MEDS: FERROUS SO4 300 MG/5 ML ORAL SOLN UNIT DOSE CUPS GT SCH (09:58)
[2017-01-02] MEDS: ATENOLOL 25 MG TABLET (FP) GT SCH (09:59)
[2017-01-02] MEDS: SUCRALFATE 1 GM/10 ML UNIT DOSE CUPS PEG SCH ×2 (09:59→21:01)
[2017-01-02] MEDS: LACTOBACILLUS ACIDOPHILUS 1 EACH TAB (FP) PEG SCH ×2 (09:59→21:01)
[2017-01-02] MEDS: levETIRAcetam 500 MG/5 ML INJECTION VIAL IVPB SCH ×2 (09:59→21:01)
[2017-01-02] MEDS: NYSTATIN POWDER 100,000 UNITS/GM - 15 GM TOPICAL POWDER TP SCH (10:00)
[2017-01-02] MEDS: FLUTICASONE PROP 0.05% 16 GM NASAL SPRAY NS SCH (10:00)
[2017-01-02] MEDS: AZTREONAM 0.5 GM in DEXTROSE 5%-WATER - 50 ML IVPB SCH ×2 (11:03→21:12)
--- NOTE | 2017-01-02 14:33 | PN ---
Progress Note, Physician History of Present Illness: Awake, smiling No acute distress Temp elevation noted WBC WNL Repeat c/s pending - Current Medication List Current Medications: Active Medications Al Hydroxide/Mg Hydroxide (Mylanta Oral Suspension -) 5 ml PEG ASDIR PRN PRN Reason: DYSPEPSIA Atenolol (Tenormin -) 25 mg GT DAILY [facility] Last Admin: 01/02/17 09:59 Dose: 25 mg Baclofen (Lioresal -) 10 mg PEG TID [facility] Last Admin: 01/02/17 05:40 Dose: 10 mg Bisacodyl (Dulcolax Suppository -) 10 mg RC DAILY PRN PRN Reason: CONSTIPATION Calcium Carbonate/Cholecalciferol (Os-Gerald 500+D -) 1 tab PEG TID [facility] Last Admin: 01/02/17 05:40 Dose: 1 tab Ferrous Sulfate (Feosol) 300 mg GT DAILY [facility] Last Admin: 01/02/17 09:58 Dose: 300 mg Fluticasone Propionate (Flonase -) 1 spray NS DAILY [facility] Last Admin: 01/02/17 10:00 Dose: 1 spray Heparin Sodium (Porcine) (Heparin -) 5,000 unit SQ TID [facility] Last Admin: 01/02/17 05:41 Dose: 5,000 unit Aztreonam 0.5 gm/ Dextrose 50 mls @ 100 mls/hr IVPB BID [facility] Last Admin: 01/02/17 11:03 Dose: 100 mls/hr Lactobacillus Acidophilus (Bacid -) 1 tab PEG BID [facility] Last Admin: 01/02/17 09:59 Dose: 1 tab Levetiracetam (Keppra Injection -) 500 mg IVPB BID [facility] Last Admin: 01/02/17 09:59 Dose: 500 mg Metoclopramide HCl (Reglan Oral Solution -) 5 mg PEG BID [facility] Last Admin: 01/02/17 09:58 Dose: 5 mg Tizanidine 4 Mg Tab (- Patient Own Med) 1 each PEG TID [facility] Last Admin: 01/02/17 05:40 Dose: 1 each Gabitril 4 Mg Tab - (Patient Own Med) 4 mg PEG TID [facility] Last Admin: 01/02/17 05:40 Dose: 4 mg Nystatin (Nystop Powder -) 1 applic TP DAILY [facility] Last Admin: 01/02/17 10:00 Dose: 1 applic Potassium Chloride (Potassium Chloride Oral Liquid) 10 meq PEG DAILY [facility] Last Admin: 01/02/17 09:58 Dose: 10 meq Simethicone (Mylicon Liquid -) 40 mg GT Q6HPO [facility] Last Admin: 01/02/17 05:40 Dose: 40 mg Sucralfate (Carafate Oral Suspension -) 1 gm PEG BID [facility] Last Admin: 01/02/17 09:59 Dose: 1 gm Zinc Oxide/Panthenol/Vitamin E (Balmex Cream -) 1 applic TP ASDIR PRN PRN Reason: HYGEINE - Objective Vital Signs: Vital Signs Temperature 97.8 F 01/02/17 10:00 Pulse Rate 76 01/02/17 10:00 Respiratory Rate 18 01/02/17 10:00 Blood Pressure 111/72 01/02/17 10:00 O2 Sat by Pulse Oximetry (%) 100 01/01/17 21:00 Constitutional: Yes: No Distress Eyes: Yes: Conjunctiva Clear Cardiovascular: Yes: Regular Rate and Rhythm, S1, S2 Respiratory: Yes: Rhonchi Gastrointestinal: Yes: Normal Bowel Sounds, Soft, Other (distended, no tenderness + feeding tube drainage, skin excoriation) Edema: No Labs: CBC, BMP 01/02/17 08:20 01/02/17 08:20 INR, PTT INR 1.37 (0.82-1.09) H 12/25/16 16:45 Assessment/Plan Fever/ leukocytosis possible sepsis GI// lung Developmental delay Await repeat c/s Empiric aztreonam/ vancomycin
[2017-01-02] MEDS: VANCOMYCIN 500 MG in DEXTROSE 5%-WATER - 100 ML IVPB SCH (18:24)
[2017-01-02] MEDS: metroNIDAZOLE 250 MG TABLET PEG SCH (21:01)
[2017-01-03] MEDS: CALCIUM 500MG/VIT-D 200 UNITS COMBO TABLET (FP) PEG SCH ×3 (05:31→22:20)
[2017-01-03] MEDS: BACLOFEN 10 MG TABLET (FP) PEG SCH ×3 (05:31→22:20)
[2017-01-03] MEDS: metroNIDAZOLE 250 MG TABLET PEG SCH ×3 (05:32→22:20)
[2017-01-03] MEDS: GABITRIL 4 MG PEG SCH ×3 (05:32→22:22)
[2017-01-03] MEDS: SIMETHICONE 40 MG/0.6 ML BOTTLE GT SCH ×3 (05:32→18:53)
[2017-01-03] MEDS: TIZANIDINE 4 MG PEG SCH ×3 (05:32→22:22)
[2017-01-03 09:53] LABS: MCH 24.9 pg (25.7-33.7); MEAN CELL VOLUME 75.4 fl (80-96); MEAN PLT VOLUME 7.6 fl (7.5-11.1); PLATELET COUNT 324 K/MM3 (134-434); RDW 19.6 % (11.9-15.9); WHITE BLOOD COUNT 6.4 K/mm3 (4.0-10.0)
--- NOTE | 2017-01-03 10:06 | PN ---
Progress Note (short form) - Note Progress Note: NAD on NC O2. Remained afebrile overnight. No acute events overnight. Intake & Output 12/31/16 01/01/17 01/02/17 01/03/17 23:59 23:59 23:59 23:59 Intake Total 2535 1180 200 Output Total 0 Balance 2535 1180 200 Last Vital Signs Temp Pulse Resp BP Pulse Ox 97.5 F L 110 H 20 152/98 97 01/03/17 07:03 01/03/17 07:03 01/03/17 07:03 01/03/17 07:03 01/02/17 21:00 Active Medications Al Hydroxide/Mg Hydroxide (Mylanta Oral Suspension -) 5 ml PEG ASDIR PRN PRN Reason: DYSPEPSIA Atenolol (Tenormin -) 25 mg GT DAILY [facility] Last Admin: 01/02/17 09:59 Dose: 25 mg Baclofen (Lioresal -) 10 mg PEG TID [facility] Last Admin: 01/03/17 05:31 Dose: 10 mg Bisacodyl (Dulcolax Suppository -) 10 mg RC DAILY PRN PRN Reason: CONSTIPATION Calcium Carbonate/Cholecalciferol (Os-Gerald 500+D -) 1 tab PEG TID [facility] Last Admin: 01/03/17 05:31 Dose: 1 tab Ferrous Sulfate (Feosol) 300 mg GT DAILY [facility] Last Admin: 01/02/17 09:58 Dose: 300 mg Fluticasone Propionate (Flonase -) 1 spray NS DAILY [facility] Last Admin: 01/02/17 10:00 Dose: 1 spray Aztreonam 0.5 gm/ Dextrose 50 mls @ 100 mls/hr IVPB BID [facility] Last Admin: 01/02/17 21:12 Dose: 100 mls/hr Vancomycin HCl 500 mg/ (Dextrose) 100 mls @ 100 mls/hr IVPB Q24H [facility] Last Admin: 01/02/17 18:24 Dose: 100 mls/hr Lactobacillus Acidophilus (Bacid -) 1 tab PEG BID [facility] Last Admin: 01/02/17 21:01 Dose: 1 tab Levetiracetam (Keppra Injection -) 500 mg IVPB BID [facility] Last Admin: 01/02/17 21:01 Dose: 500 mg Metoclopramide HCl (Reglan Oral Solution -) 5 mg PEG BID [facility] Last Admin: 01/02/17 21:01 Dose: 5 mg Metronidazole (Flagyl -) 500 mg PEG TID [facility] Last Admin: 01/03/17 05:32 Dose: 500 mg Tizanidine 4 Mg Tab (- Patient Own Med) 1 each PEG TID [facility] Last Admin: 01/03/17 05:32 Dose: 1 each Gabitril 4 Mg Tab - (Patient Own Med) 4 mg PEG TID [facility] Last Admin: 01/03/17 05:32 Dose: 4 mg Nystatin (Nystop Powder -) 1 applic TP DAILY [facility] Last Admin: 01/02/17 10:00 Dose: 1 applic Potassium Chloride (Potassium Chloride Oral Liquid) 10 meq PEG DAILY [facility] Last Admin: 01/02/17 09:58 Dose: 10 meq Simethicone (Mylicon Liquid -) 40 mg GT Q6HPO [facility] Last Admin: 01/03/17 05:32 Dose: 40 mg Sucralfate (Carafate Oral Suspension -) 1 gm PEG BID [facility] Last Admin: 01/02/17 21:01 Dose: 1 gm Zinc Oxide/Panthenol/Vitamin E (Balmex Cream -) 1 applic TP ASDIR PRN PRN Reason: HYGEINE Gen: NAD at rest, awake Heart: RRR Lung: decreased breath sounds at the bases Abd: soft, +enterocutaneous fistula Ext: no edema, contracted Laboratory Results - last 24 hr 01/03/17 09:00 WBC 6.4 D RBC 4.62 Hgb 11.5 L D Hct 34.9 L MCV 75.4 L MCH 24.9 L MCHC 33.0 RDW 19.6 H Plt Count 324 MPV 7.6 D ASSESSMENT AND PLAN: Bowel Perforation Intra-Abdominal Collection/Abscess Mental Retardation Functional Quadriplegia - ABX coverage per ID - Aspiration precautions - DVT prophylaxis - AEDs Dr Irwin
--- NOTE | 2017-01-03 10:13 | PN ---
Progress Note (short form) - Note Progress Note: Subjective: Patient seen and examined at the bedside, he is non-verbal at baseline. He is awake and smiling. C.diff Ag and toxin positive Blood cultures from 01/01 with staph coag negative Current Medications Generic Name Dose Route Start Last Admin Trade Name Freq PRN Reason Stop Dose Admin Al Hydroxide/Mg Hydroxide 5 ml 12/26/16 18:49 Mylanta Oral Suspension - PEG ASDIR PRN DYSPEPSIA Atenolol 25 mg 01/01/17 10:00 01/02/17 09:59 Tenormin - GT 25 mg DAILY [facility] Administration Baclofen 10 mg 12/26/16 22:00 01/03/17 05:31 Lioresal - PEG 10 mg TID [facility] Administration Bisacodyl 10 mg 12/26/16 18:49 Dulcolax Suppository - RC DAILY PRN CONSTIPATION Calcium Carbonate/Cholecalciferol 1 tab 12/26/16 22:00 01/03/17 05:31 Os-Gerald 500+D - PEG 1 tab TID [facility] Administration Ferrous Sulfate 300 mg 12/27/16 10:00 01/02/17 09:58 Feosol GT 300 mg DAILY [facility] Administration Fluticasone Propionate 1 spray 12/27/16 10:00 01/02/17 10:00 Flonase - NS 1 spray DAILY [facility] Administration Aztreonam 0.5 gm/ Dextrose 50 mls @ 100 mls/hr 12/30/16 16:32 01/02/17 21:12 IVPB 100 mls/hr BID [facility] Administration Vancomycin HCl 500 mg/ 100 mls @ 100 mls/hr 01/02/17 14:45 01/02/17 18:24 Dextrose IVPB 100 mls/hr Q24H [facility] Administration Lactobacillus Acidophilus 1 tab 12/26/16 22:00 01/02/17 21:01 Bacid - PEG 1 tab BID [facility] Administration Levetiracetam 500 mg 12/27/16 23:30 01/02/17 21:01 Keppra Injection - IVPB 500 mg BID [facility] Administration Metoclopramide HCl 5 mg 12/26/16 22:00 01/02/17 21:01 Reglan Oral Solution - PEG 5 mg BID [facility] Administration Metronidazole 500 mg 01/02/17 22:00 01/03/17 05:32 Flagyl - PEG 500 mg TID [facility] Administration Tizanidine 4 Mg Tab 1 each 12/26/16 22:00 01/03/17 05:32 - Patient Own Med PEG 1 each TID [facility] Administration Gabitril 4 Mg Tab - 4 mg 12/26/16 22:00 01/03/17 05:32 Patient Own Med PEG 4 mg TID [facility] Administration Nystatin 1 applic 12/31/16 10:30 01/02/17 10:00 Nystop Powder - TP 1 applic DAILY [facility] Administration Potassium Chloride 10 meq 12/27/16 10:00 01/02/17 09:58 Potassium Chloride Oral Liquid PEG 10 meq DAILY [facility] Administration Simethicone 40 mg 12/27/16 00:00 01/03/17 05:32 Mylicon Liquid - GT 40 mg Q6HPO [facility] Administration Sucralfate 1 gm 12/26/16 22:00 01/02/17 21:01 Carafate Oral Suspension - PEG 1 gm BID [facility] Administration Zinc Oxide/Panthenol/Vitamin E 1 applic 12/31/16 08:25 Balmex Cream - TP ASDIR PRN HYGEINE Objective: Vital Signs Period Temp Pulse Resp BP Sys/Bruce Pulse Ox Last 24 Hr 97.5 F-98.9 F 77-110 18-20 108-152/67-98 97-97 Physical Exam: General: NAD, opens eyes and smiles Lungs: CTA bilaterally Heart: RRR, S1S2 Abd: J/G tube in place, excoriated skin surrounding. Soft, non-tender, non- distended Ext: Contracted Neuro: Unable to assess CN CBCD WBC 6.4 K/mm3 (4.0-10.0) D 01/03/17 09:00 RBC 4.62 M/mm3 (4.00-5.60) 01/03/17 09:00 Hgb 11.5 GM/dL (11.7-16.9) L D 01/03/17 09:00 Hct 34.9 % (35.4-49) L 01/03/17 09:00 MCV 75.4 fl (80-96) L 01/03/17 09:00 MCHC 33.0 g/dl (32.0-35.9) 01/03/17 09:00 RDW 19.6 % (11.9-15.9) H 01/03/17 09:00 Plt Count 324 K/MM3 (134-434) 01/03/17 09:00 MPV 7.6 fl (7.5-11.1) D 01/03/17 09:00 CMP Sodium 134 mmol/L (136-145) L 01/02/17 08:20 Potassium 3.7 mmol/L (3.5-5.1) 01/02/17 08:20 Chloride 96 mmol/L (98-107) L 01/02/17 08:20 Carbon Dioxide 30 mmol/L (21-32) 01/02/17 08:20 Anion Gap 8 (8-16) 01/02/17 08:20 BUN 12 mg/dL (7-18) 01/02/17 08:20 Creatinine 0.2 mg/dL (0.7-1.3) L 01/02/17 08:20 Creat Clearance w eGFR > 60 (>60) 01/02/17 08:20 Random Glucose 127 mg/dL (74-106) H 01/02/17 08:20 Calcium 8.9 mg/dL (8.5-10.1) 01/02/17 08:20 Total Bilirubin 0.3 mg/dL (0.2-1.0) D 01/02/17 08:20 AST 7 U/L (15-37) L D 01/02/17 08:20 ALT 12 U/L (12-78) 01/02/17 08:20 Alkaline Phosphatase 49 U/L (45-117) 01/02/17 08:20 Total Protein 6.7 g/dl (6.4-8.2) 01/02/17 08:20 Albumin 2.6 g/dl (3.4-5.0) L 01/02/17 08:20 CARDIAC ENZYMES Creatine Kinase 78 IU/L (39-308) 12/16/16 22:44 Troponin I < 0.02 ng/ml (0.00-0.05) 12/25/16 16:45 Microbiology 01/01/17 13:20 Blood - Peripheral Venous Blood Culture - Preliminary Staphylococcus Coagulase Neg 01/01/17 13:20 Blood - Peripheral Venous Blood Culture - Preliminary Staphylococcus Coagulase Neg 01/01/17 16:00 Stool Clostridium difficile Antigen (JUANJOSE) - Final 01/01/17 16:00 Stool Clostridium difficile Toxin Assay - Final 12/25/16 23:00 Sputum - Expectorated Sputum Culture - Final Klebsiella Pneumoniae Pseudomonas Aeruginosa 12/20/16 10:35 Rectal Swab VRE Culture - Final Vanco Resistant Enterococcus Assessment: This is a 36 year old male from [facility] with PMHx of congenital quadriplegia, general convulsive epilepsy, profound MR, monocular extropia, nonverbal, and severe mental deficits. Admitted for suspected abdominal infection. Hospital course complicated on 12/26 by episode of severe hypotension and bradycardia and an increase in WBC Plan: 1) ID: Staph coag neg bacteremia - Afebrile - Aztreonam bid - Vancomycin daily - WBC wnl today - Continue to monitor C.diff - Ag and toxin positive - Flagyl 500mg gt tid Abdominal infection, resolved - Initial imaging suggested a possible bowel perforation but this was subsequently ruled out by Dr. Rausch in two flouroscopic exams and susequent CT imaging - Completed course of Zosyn 12/22 Pulmonary bacterial colonization - Sputum cultures grew Klebsiella and Pseudomonas - Seen and evaluated by ID, this is considered colonization, no treatment 2) GI: J/G tube replacement 12/26 - Working well - Excoriated skin surrounding, will place barrier cream on skin to prevent further excoriation 3) Neurology: Seizure disorder - No seizure activity - Continue home medication 4) Cardiology: HTN - Continue antihypertensives with hold parameters 5) Heme: Iron deficiency anemia - Continue ferrous sulfate 6) F/E/N: - Monitor electrolytes - Continue tube feeds - Hyponatremia: improving 7) Prophylaxis: - Functional quadriplegia: dependent for all ADLs - Heparin 5,000u sq tid 8) Dispo: - Requires continued inpatient care - Still on IV abx CODE STATUS: FULL CODE Visit type - Emergency Visit Emergency Visit: Yes ED Registration Date: 12/17/16 Care time: The patient presented to the Emergency Department on the above date and was hospitalized for further evaluation of their emergent condition. - New Patient This patient is new to me today: No - Critical Care Critical Care patient: No
[2017-01-03 10:15] LABS: ALBUMIN 3.4 g/dl (3.4-5.0); ALK PHOS 59 U/L (45-117); ANION GAP 11 (8-16); BILIRUBIN,TOTAL 0.4 mg/dL (0.2-1.0); CO2 29 mmol/L (21-32); CREATININE 0.3 mg/dL (0.7-1.3); GLUCOSE,RANDOM 97 mg/dL (74-106); SGOT/AST 13 U/L (15-37); SGPT/ALT 20 U/L (12-78); TOT PROT 8.4 g/dl (6.4-8.2)
[2017-01-03] MEDS: METOCLOPRAMIDE HCL 5 MG/5 ML UNIT DOSE CUP PEG SCH ×2 (10:22→22:23)
[2017-01-03] MEDS: ATENOLOL 25 MG TABLET (FP) GT SCH (10:22)
[2017-01-03] MEDS: LACTOBACILLUS ACIDOPHILUS 1 EACH TAB (FP) PEG SCH ×2 (10:22→22:20)
[2017-01-03] MEDS: AZTREONAM 0.5 GM in DEXTROSE 5%-WATER - 50 ML IVPB SCH ×2 (10:22→22:20)
[2017-01-03] MEDS: POTASSIUM CHLORIDE ORAL LIQUID 20 MEQ/15 ML PEG SCH (10:22)
[2017-01-03] MEDS: FERROUS SO4 300 MG/5 ML ORAL SOLN UNIT DOSE CUPS GT SCH (10:23)
[2017-01-03] MEDS: levETIRAcetam 500 MG/5 ML INJECTION VIAL IVPB SCH ×2 (10:23→22:20)
[2017-01-03] MEDS: NYSTATIN POWDER 100,000 UNITS/GM - 15 GM TOPICAL POWDER TP SCH (10:23)
[2017-01-03] MEDS: SUCRALFATE 1 GM/10 ML UNIT DOSE CUPS PEG SCH ×2 (10:23→22:20)
[2017-01-03] MEDS: MULTIVIT-MINERALS 236 ML ML GT SCH (10:23)
[2017-01-03] MEDS: FLUTICASONE PROP 0.05% 16 GM NASAL SPRAY NS SCH (10:24)
--- NOTE | 2017-01-03 11:46 | PN ---
Progress Note, Physician History of Present Illness: Non-verbal No acute distress Temps down Afebrile WBC WNL BC SCN - Current Medication List Current Medications: Active Medications Al Hydroxide/Mg Hydroxide (Mylanta Oral Suspension -) 5 ml PEG ASDIR PRN PRN Reason: DYSPEPSIA Atenolol (Tenormin -) 25 mg GT DAILY [facility] Last Admin: 01/03/17 10:22 Dose: 25 mg Baclofen (Lioresal -) 10 mg PEG TID [facility] Last Admin: 01/03/17 05:31 Dose: 10 mg Bisacodyl (Dulcolax Suppository -) 10 mg RC DAILY PRN PRN Reason: CONSTIPATION Calcium Carbonate/Cholecalciferol (Os-Gerald 500+D -) 1 tab PEG TID [facility] Last Admin: 01/03/17 05:31 Dose: 1 tab Ferrous Sulfate (Feosol) 300 mg GT DAILY [facility] Last Admin: 01/03/17 10:23 Dose: 300 mg Fluticasone Propionate (Flonase -) 1 spray NS DAILY [facility] Last Admin: 01/03/17 10:24 Dose: 1 spray Aztreonam 0.5 gm/ Dextrose 50 mls @ 100 mls/hr IVPB BID [facility] Last Admin: 01/03/17 10:22 Dose: 100 mls/hr Vancomycin HCl 500 mg/ (Dextrose) 100 mls @ 100 mls/hr IVPB Q24H [facility] Last Admin: 01/02/17 18:24 Dose: 100 mls/hr Lactobacillus Acidophilus (Bacid -) 1 tab PEG BID [facility] Last Admin: 01/03/17 10:22 Dose: 1 tab Levetiracetam (Keppra Injection -) 500 mg IVPB BID [facility] Last Admin: 01/03/17 10:23 Dose: 500 mg Metoclopramide HCl (Reglan Oral Solution -) 5 mg PEG BID [facility] Last Admin: 01/03/17 10:22 Dose: 5 mg Metronidazole (Flagyl -) 500 mg PEG TID [facility] Last Admin: 01/03/17 05:32 Dose: 500 mg Tizanidine 4 Mg Tab (- Patient Own Med) 1 each PEG TID [facility] Last Admin: 01/03/17 05:32 Dose: 1 each Gabitril 4 Mg Tab - (Patient Own Med) 4 mg PEG TID [facility] Last Admin: 01/03/17 05:32 Dose: 4 mg Nystatin (Nystop Powder -) 1 applic TP DAILY [facility] Last Admin: 01/03/17 10:23 Dose: 1 applic Potassium Chloride (Potassium Chloride Oral Liquid) 10 meq PEG DAILY [facility] Last Admin: 01/03/17 10:22 Dose: 10 meq Simethicone (Mylicon Liquid -) 40 mg GT Q6HPO [facility] Last Admin: 01/03/17 05:32 Dose: 40 mg Sucralfate (Carafate Oral Suspension -) 1 gm PEG BID [facility] Last Admin: 01/03/17 10:23 Dose: 1 gm Zinc Oxide/Panthenol/Vitamin E (Balmex Cream -) 1 applic TP ASDIR PRN PRN Reason: HYGEINE - Objective Vital Signs: Vital Signs Temperature 97.5 F L 01/03/17 07:03 Pulse Rate 110 H 01/03/17 07:03 Respiratory Rate 20 01/03/17 07:03 Blood Pressure 152/98 01/03/17 07:03 O2 Sat by Pulse Oximetry (%) 97 01/02/17 21:00 Constitutional: Yes: No Distress Cardiovascular: Yes: Regular Rate and Rhythm, S1, S2 Respiratory: Yes: Diminished Gastrointestinal: Yes: Normal Bowel Sounds, Other (Distended, non tender) Labs: CBC, BMP 01/03/17 09:00 01/03/17 09:00 INR, PTT INR 1.37 (0.82-1.09) H 12/25/16 16:45 Assessment/Plan Fever/ leukocytosis possible sepsis GI// lung + BC SCN Developmental delay Continue vancomycin/ aztreonam
[2017-01-03] MEDS ORDERED: PT OWN MED DRAWER 7, Y5N ONE ×3 (15:04→22:26)
[2017-01-03] MEDS: VANCOMYCIN 500 MG in DEXTROSE 5%-WATER - 100 ML IVPB SCH (15:18)
[2017-01-04] MEDS: SIMETHICONE 40 MG/0.6 ML BOTTLE GT SCH ×4 (00:10→17:45)
[2017-01-04] MEDS: BACLOFEN 10 MG TABLET (FP) PEG SCH ×3 (05:27→22:57)
[2017-01-04] MEDS: CALCIUM 500MG/VIT-D 200 UNITS COMBO TABLET (FP) PEG SCH ×3 (05:27→22:57)
[2017-01-04] MEDS: metroNIDAZOLE 250 MG TABLET PEG SCH ×3 (05:27→22:57)
[2017-01-04] MEDS: TIZANIDINE 4 MG PEG SCH ×3 (05:28→22:58)
[2017-01-04] MEDS: GABITRIL 4 MG PEG SCH ×3 (05:28→22:58)
[2017-01-04] MEDS ORDERED: INSULIN DETEMIR 100 UNITS/ML MDV SQ ONE (07:10)
[2017-01-04] MEDS ORDERED: INSULIN (NOVOLOG) ASPART 100 UNITS/ML 10ML VIAL ONE (07:10)
[2017-01-04] MEDS ORDERED: PT OWN MED DRAWER 7, Y5N ONE ×5 (08:08→18:23)
--- NOTE | 2017-01-04 10:25 | PN ---
Progress Note (short form) - Note Progress Note: Subjective: Patient seen and examined at the bedside, he is non-verbal at baseline. He is awake and smiling. Current Medications Generic Name Dose Route Start Last Admin Trade Name Freq PRN Reason Stop Dose Admin Al Hydroxide/Mg Hydroxide 5 ml 12/26/16 18:49 Mylanta Oral Suspension - PEG ASDIR PRN DYSPEPSIA Atenolol 25 mg 01/01/17 10:00 01/03/17 10:22 Tenormin - GT 25 mg DAILY [facility] Administration Baclofen 10 mg 12/26/16 22:00 01/04/17 05:27 Lioresal - PEG 10 mg TID [facility] Administration Bisacodyl 10 mg 12/26/16 18:49 Dulcolax Suppository - RC DAILY PRN CONSTIPATION Calcium Carbonate/Cholecalciferol 1 tab 12/26/16 22:00 01/04/17 05:27 Os-Gerald 500+D - PEG 1 tab TID [facility] Administration Ferrous Sulfate 300 mg 12/27/16 10:00 01/03/17 10:23 Feosol GT 300 mg DAILY [facility] Administration Fluticasone Propionate 1 spray 12/27/16 10:00 01/03/17 10:24 Flonase - NS 1 spray DAILY [facility] Administration Aztreonam 0.5 gm/ Dextrose 50 mls @ 100 mls/hr 12/30/16 16:32 01/03/17 22:20 IVPB 100 mls/hr BID [facility] Administration Vancomycin HCl 500 mg/ 100 mls @ 100 mls/hr 01/02/17 14:45 01/03/17 15:18 Dextrose IVPB 100 mls/hr Q24H [facility] Administration Lactobacillus Acidophilus 1 tab 12/26/16 22:00 01/03/17 22:20 Bacid - PEG 1 tab BID [facility] Administration Levetiracetam 500 mg 12/27/16 23:30 01/03/17 22:20 Keppra Injection - IVPB 500 mg BID [facility] Administration Metoclopramide HCl 5 mg 12/26/16 22:00 01/03/17 22:23 Reglan Oral Solution - PEG 5 mg BID [facility] Administration Metronidazole 500 mg 01/02/17 22:00 01/04/17 05:27 Flagyl - PEG 500 mg TID [facility] Administration Tizanidine 4 Mg Tab 1 each 12/26/16 22:00 01/04/17 05:28 - Patient Own Med PEG 1 each TID [facility] Administration Gabitril 4 Mg Tab - 4 mg 12/26/16 22:00 01/04/17 05:28 Patient Own Med PEG 4 mg TID [facility] Administration Nystatin 1 applic 12/31/16 10:30 01/03/17 10:23 Nystop Powder - TP 1 applic DAILY [facility] Administration Potassium Chloride 10 meq 12/27/16 10:00 01/03/17 10:22 Potassium Chloride Oral Liquid PEG 10 meq DAILY [facility] Administration Simethicone 40 mg 12/27/16 00:00 01/04/17 05:27 Mylicon Liquid - GT 40 mg Q6HPO [facility] Administration Sucralfate 1 gm 12/26/16 22:00 01/03/17 22:20 Carafate Oral Suspension - PEG 1 gm BID [facility] Administration Zinc Oxide/Panthenol/Vitamin E 1 applic 12/31/16 08:25 Balmex Cream - TP ASDIR PRN HYGEINE Objective: Vital Signs Period Temp Pulse Resp BP Sys/Bruce Pulse Ox Last 24 Hr 97.6 F-98.9 F 84-104 18-20 108-134/68-92 98 Physical Exam: General: NAD, opens eyes and smiles, non-verbal at baseline HEENT: Thick secretions Lungs: CTA bilaterally Heart: RRR, S1S2 Abd: J/G tube in place, excoriated skin surrounding. Soft, non-tender, non- distended Ext: Contracted CBCD WBC 6.4 K/mm3 (4.0-10.0) D 01/03/17 09:00 RBC 4.62 M/mm3 (4.00-5.60) 01/03/17 09:00 Hgb 11.5 GM/dL (11.7-16.9) L D 01/03/17 09:00 Hct 34.9 % (35.4-49) L 01/03/17 09:00 MCV 75.4 fl (80-96) L 01/03/17 09:00 MCHC 33.0 g/dl (32.0-35.9) 01/03/17 09:00 RDW 19.6 % (11.9-15.9) H 01/03/17 09:00 Plt Count 324 K/MM3 (134-434) 01/03/17 09:00 MPV 7.6 fl (7.5-11.1) D 01/03/17 09:00 CMP Sodium 135 mmol/L (136-145) L 01/03/17 09:00 Potassium 4.5 mmol/L (3.5-5.1) D 01/03/17 09:00 Chloride 95 mmol/L (98-107) L 01/03/17 09:00 Carbon Dioxide 29 mmol/L (21-32) 01/03/17 09:00 Anion Gap 11 (8-16) 01/03/17 09:00 BUN 16 mg/dL (7-18) D 01/03/17 09:00 Creatinine 0.3 mg/dL (0.7-1.3) L D 01/03/17 09:00 Creat Clearance w eGFR > 60 (>60) 01/03/17 09:00 Random Glucose 97 mg/dL (74-106) D 01/03/17 09:00 Calcium 10.0 mg/dL (8.5-10.1) 01/03/17 09:00 Total Bilirubin 0.4 mg/dL (0.2-1.0) D 01/03/17 09:00 AST 13 U/L (15-37) L D 01/03/17 09:00 ALT 20 U/L (12-78) D 01/03/17 09:00 Alkaline Phosphatase 59 U/L (45-117) D 01/03/17 09:00 Total Protein 8.4 g/dl (6.4-8.2) H D 01/03/17 09:00 Albumin 3.4 g/dl (3.4-5.0) D 01/03/17 09:00 CARDIAC ENZYMES Creatine Kinase 78 IU/L (39-308) 12/16/16 22:44 Troponin I < 0.02 ng/ml (0.00-0.05) 12/25/16 16:45 Microbiology 01/01/17 13:20 Blood - Peripheral Venous Blood Culture - Final Staphylococcus Epidermidis 01/01/17 13:20 Blood - Peripheral Venous Blood Culture - Preliminary Staphylococcus Epidermidis 01/01/17 16:00 Stool Clostridium difficile Antigen (JUANJOSE) - Final 12/25/16 23:00 Sputum - Expectorated Sputum Culture - Final Klebsiella Pneumoniae Pseudomonas Aeruginosa Assessment: This is a 36 year old male from [facility] with PMHx of congenital quadriplegia, general convulsive epilepsy, profound MR, monocular extropia, nonverbal, and severe mental deficits. Admitted for suspected abdominal infection. Hospital course complicated on 12/26 by episode of severe hypotension and bradycardia and an increase in WBC Plan: 1) ID: Staph epidermidis bacteremia - Afebrile - Aztreonam bid - Vancomycin daily - Continue to monitor C.diff - Ag and toxin positive - Flagyl 500mg gt tid Abdominal infection, resolved - Initial imaging suggested a possible bowel perforation but this was subsequently ruled out by Dr. Rausch in two flouroscopic exams and susequent CT imaging - Completed course of Zosyn 12/22 Pulmonary bacterial colonization - Sputum cultures grew Klebsiella and Pseudomonas - Seen and evaluated by ID, this is considered colonization, no treatment 2) GI: J/G tube replacement 12/26 - Working well - Excoriated skin surrounding, will place barrier cream on skin to prevent further excoriation 3) Neurology: Seizure disorder - No seizure activity - Continue home medication 4) Cardiology: HTN - Continue antihypertensives with hold parameters 5) Heme: Iron deficiency anemia - Continue ferrous sulfate 6) F/E/N: - Monitor electrolytes - Continue tube feeds - Hyponatremia: improving 7) Prophylaxis: - Functional quadriplegia: dependent for all ADLs - Heparin 5,000u sq tid 8) Dispo: - Requires continued inpatient care - Still on IV abx CODE STATUS: FULL CODE Visit type - Emergency Visit Emergency Visit: Yes ED Registration Date: 12/17/16 Care time: The patient presented to the Emergency Department on the above date and was hospitalized for further evaluation of their emergent condition. - New Patient This patient is new to me today: No - Critical Care Critical Care patient: No
[2017-01-04] MEDS: SUCRALFATE 1 GM/10 ML UNIT DOSE CUPS PEG SCH ×2 (10:38→22:57)
[2017-01-04] MEDS: levETIRAcetam 500 MG/5 ML INJECTION VIAL IVPB SCH ×2 (10:38→22:57)
[2017-01-04] MEDS: AZTREONAM 0.5 GM in DEXTROSE 5%-WATER - 50 ML IVPB SCH ×3 (10:38→23:56)
[2017-01-04] MEDS: POTASSIUM CHLORIDE ORAL LIQUID 20 MEQ/15 ML PEG SCH (10:38)
[2017-01-04] MEDS: FERROUS SO4 300 MG/5 ML ORAL SOLN UNIT DOSE CUPS GT SCH (10:38)
[2017-01-04] MEDS: LACTOBACILLUS ACIDOPHILUS 1 EACH TAB (FP) PEG SCH ×2 (10:38→22:57)
[2017-01-04] MEDS: MULTIVIT-MINERALS 236 ML ML GT SCH (10:39)
[2017-01-04] MEDS: ATENOLOL 25 MG TABLET (FP) GT SCH (10:39)
[2017-01-04] MEDS: METOCLOPRAMIDE HCL 5 MG/5 ML UNIT DOSE CUP PEG SCH ×2 (10:39→22:57)
[2017-01-04] MEDS: NYSTATIN POWDER 100,000 UNITS/GM - 15 GM TOPICAL POWDER TP SCH (10:40)
[2017-01-04] MEDS: FLUTICASONE PROP 0.05% 16 GM NASAL SPRAY NS SCH (10:40)
--- NOTE | 2017-01-04 10:52 | PN ---
Progress Note (short form) - Note Progress Note: NAD on NC O2. Remained afebrile overnight. No acute events overnight. Intake & Output 01/01/17 01/02/17 01/03/17 01/04/17 23:59 23:59 23:59 23:59 Intake Total 9854 935 9070 Balance 2001 251 9870 Last Vital Signs Temp Pulse Resp BP Pulse Ox 97.6 F 95 H 20 108/77 98 01/04/17 08:05 01/04/17 08:05 01/04/17 08:05 01/04/17 08:05 01/03/17 20:24 Active Medications Al Hydroxide/Mg Hydroxide (Mylanta Oral Suspension -) 5 ml PEG ASDIR PRN PRN Reason: DYSPEPSIA Atenolol (Tenormin -) 25 mg GT DAILY [facility] Last Admin: 01/04/17 10:39 Dose: 25 mg Baclofen (Lioresal -) 10 mg PEG TID [facility] Last Admin: 01/04/17 05:27 Dose: 10 mg Bisacodyl (Dulcolax Suppository -) 10 mg RC DAILY PRN PRN Reason: CONSTIPATION Calcium Carbonate/Cholecalciferol (Os-Gerald 500+D -) 1 tab PEG TID [facility] Last Admin: 01/04/17 05:27 Dose: 1 tab Ferrous Sulfate (Feosol) 300 mg GT DAILY [facility] Last Admin: 01/04/17 10:38 Dose: 300 mg Fluticasone Propionate (Flonase -) 1 spray NS DAILY [facility] Last Admin: 01/04/17 10:40 Dose: 1 spray Aztreonam 0.5 gm/ Dextrose 50 mls @ 100 mls/hr IVPB BID [facility] Last Admin: 01/04/17 10:38 Dose: 100 mls/hr Vancomycin HCl 500 mg/ (Dextrose) 100 mls @ 100 mls/hr IVPB Q24H [facility] Last Admin: 01/03/17 15:18 Dose: 100 mls/hr Lactobacillus Acidophilus (Bacid -) 1 tab PEG BID [facility] Last Admin: 01/04/17 10:38 Dose: 1 tab Levetiracetam (Keppra Injection -) 500 mg IVPB BID [facility] Last Admin: 01/04/17 10:38 Dose: 500 mg Metoclopramide HCl (Reglan Oral Solution -) 5 mg PEG BID [facility] Last Admin: 10/15/17 10:39 Dose: 5 mg Metronidazole (Flagyl -) 500 mg PEG TID [facility] Last Admin: 01/04/17 05:27 Dose: 500 mg Tizanidine 4 Mg Tab (- Patient Own Med) 1 each PEG TID [facility] Last Admin: 01/04/17 05:28 Dose: 1 each Gabitril 4 Mg Tab - (Patient Own Med) 4 mg PEG TID [facility] Last Admin: 01/04/17 05:28 Dose: 4 mg Nystatin (Nystop Powder -) 1 applic TP DAILY [facility] Last Admin: 01/04/17 10:40 Dose: 1 applic Potassium Chloride (Potassium Chloride Oral Liquid) 10 meq PEG DAILY [facility] Last Admin: 01/04/17 10:38 Dose: 10 meq Simethicone (Mylicon Liquid -) 40 mg GT Q6HPO [facility] Last Admin: 01/04/17 05:27 Dose: 40 mg Sucralfate (Carafate Oral Suspension -) 1 gm PEG BID [facility] Last Admin: 01/04/17 10:38 Dose: 1 gm Zinc Oxide/Panthenol/Vitamin E (Balmex Cream -) 1 applic TP ASDIR PRN PRN Reason: HYGEINE Gen: NAD at rest, awake Heart: RRR Lung: decreased breath sounds at the bases Abd: soft, +enterocutaneous fistula Ext: no edema, contracted ASSESSMENT AND PLAN: Bowel Perforation Intra-Abdominal Collection/Abscess Mental Retardation Functional Quadriplegia - ABX coverage per ID - Aspiration precautions - DVT prophylaxis - AEDs Dr Irwin
[2017-01-04] MEDS: VANCOMYCIN 500 MG in DEXTROSE 5%-WATER - 100 ML IVPB SCH (15:05)
[2017-01-04] MEDS ORDERED: AZTREONAM 0.5 GM in DEXTROSE 5%-WATER - 50 ML IVPB SCH (23:00)
[2017-01-05] MEDS: SIMETHICONE 40 MG/0.6 ML BOTTLE GT SCH ×4 (00:13→17:48)
[2017-01-05] MEDS: BACLOFEN 10 MG TABLET (FP) PEG SCH ×3 (05:34→21:36)
[2017-01-05] MEDS: CALCIUM 500MG/VIT-D 200 UNITS COMBO TABLET (FP) PEG SCH ×3 (05:34→21:36)
[2017-01-05] MEDS: GABITRIL 4 MG PEG SCH ×3 (05:35→21:37)
[2017-01-05] MEDS: TIZANIDINE 4 MG PEG SCH ×3 (05:35→21:37)
[2017-01-05] MEDS: metroNIDAZOLE 250 MG TABLET PEG SCH ×3 (05:36→21:37)
[2017-01-05] MEDS ORDERED: PT OWN MED DRAWER 7, Y5N ONE ×3 (10:03→20:56)
[2017-01-05 10:08] LABS: MCH 24.6 pg (25.7-33.7); MCHC 32.3 g/dl (32.0-35.9); MEAN CELL VOLUME 76.2 fl (80-96); MEAN PLT VOLUME 7.7 fl (7.5-11.1); RDW 19.4 % (11.9-15.9)
[2017-01-05 10:17] LABS: WHITE BLOOD COUNT 15.3 K/mm3 (4.0-10.0)
[2017-01-05] MEDS: levETIRAcetam 500 MG/5 ML INJECTION VIAL IVPB SCH ×2 (10:28→21:37)
[2017-01-05] MEDS: LACTOBACILLUS ACIDOPHILUS 1 EACH TAB (FP) PEG SCH ×2 (10:28→21:36)
[2017-01-05] MEDS: FERROUS SO4 300 MG/5 ML ORAL SOLN UNIT DOSE CUPS GT SCH (10:29)
[2017-01-05] MEDS: MULTIVIT-MINERALS 236 ML ML GT SCH (10:29)
[2017-01-05] MEDS: SUCRALFATE 1 GM/10 ML UNIT DOSE CUPS PEG SCH ×2 (10:29→21:36)
[2017-01-05] MEDS: POTASSIUM CHLORIDE ORAL LIQUID 20 MEQ/15 ML PEG SCH (10:30)
[2017-01-05] MEDS: METOCLOPRAMIDE HCL 5 MG/5 ML UNIT DOSE CUP PEG SCH ×2 (10:31→21:36)
[2017-01-05] MEDS: AZTREONAM 0.5 GM in DEXTROSE 5%-WATER - 50 ML IVPB SCH ×2 (10:32→21:37)
[2017-01-05] MEDS: NYSTATIN POWDER 100,000 UNITS/GM - 15 GM TOPICAL POWDER TP SCH (10:32)
[2017-01-05] MEDS: FLUTICASONE PROP 0.05% 16 GM NASAL SPRAY NS SCH (10:33)
[2017-01-05 10:40] LABS: ANION GAP 8 (8-16); CALCIUM 9.6 mg/dL (8.5-10.1); CO2 29 mmol/L (21-32); CREATININE 0.3 mg/dL (0.7-1.3); GLUCOSE,RANDOM 104 mg/dL (74-106)
[2017-01-05] MEDS: ATENOLOL 25 MG TABLET (FP) GT SCH (10:40)
--- NOTE | 2017-01-05 11:03 | PN ---
Progress Note, Physician History of Present Illness: Awake, non-verbal No acute distress Afebrile WBC WNL BC (01/01) SCN; BC (01/03) no growth - Current Medication List Current Medications: Active Medications Al Hydroxide/Mg Hydroxide (Mylanta Oral Suspension -) 5 ml PEG ASDIR PRN PRN Reason: DYSPEPSIA Atenolol (Tenormin -) 25 mg GT DAILY [facility] Last Admin: 01/05/17 10:40 Dose: 25 mg Baclofen (Lioresal -) 10 mg PEG TID [facility] Last Admin: 01/05/17 05:34 Dose: 10 mg Bisacodyl (Dulcolax Suppository -) 10 mg RC DAILY PRN PRN Reason: CONSTIPATION Calcium Carbonate/Cholecalciferol (Os-Gerald 500+D -) 1 tab PEG TID [facility] Last Admin: 01/05/17 05:34 Dose: 1 tab Ferrous Sulfate (Feosol) 300 mg GT DAILY [facility] Last Admin: 01/05/17 10:29 Dose: 300 mg Fluticasone Propionate (Flonase -) 1 spray NS DAILY [facility] Last Admin: 01/05/17 10:33 Dose: 1 spray Vancomycin HCl 500 mg/ (Dextrose) 100 mls @ 100 mls/hr IVPB Q24H [facility] Last Admin: 01/04/17 15:05 Dose: 100 mls/hr Aztreonam 0.5 gm/ Dextrose 50 mls @ 100 mls/hr IVPB BID [facility] Last Admin: 01/05/17 10:32 Dose: Not Given Lactobacillus Acidophilus (Bacid -) 1 tab PEG BID [facility] Last Admin: 01/05/17 10:28 Dose: 1 tab Levetiracetam (Keppra Injection -) 500 mg IVPB BID [facility] Last Admin: 01/05/17 10:28 Dose: 500 mg Metoclopramide HCl (Reglan Oral Solution -) 5 mg PEG BID [facility] Last Admin: 01/05/17 10:31 Dose: 5 mg Metronidazole (Flagyl -) 500 mg PEG TID [facility] Last Admin: 01/05/17 05:36 Dose: 500 mg Tizanidine 4 Mg Tab (- Patient Own Med) 1 each PEG TID [facility] Last Admin: 01/05/17 05:35 Dose: 1 each Gabitril 4 Mg Tab - (Patient Own Med) 4 mg PEG TID [facility] Last Admin: 01/05/17 05:35 Dose: 4 mg Nystatin (Nystop Powder -) 1 applic TP DAILY [facility] Last Admin: 01/05/17 10:32 Dose: 1 applic Potassium Chloride (Potassium Chloride Oral Liquid) 10 meq PEG DAILY [facility] Last Admin: 01/05/17 10:30 Dose: 10 meq Simethicone (Mylicon Liquid -) 40 mg GT Q6HPO [facility] Last Admin: 01/05/17 05:37 Dose: 40 mg Sucralfate (Carafate Oral Suspension -) 1 gm PEG BID [facility] Last Admin: 01/05/17 10:29 Dose: 1 gm Zinc Oxide/Panthenol/Vitamin E (Balmex Cream -) 1 applic TP ASDIR PRN PRN Reason: HYGEINE - Objective Vital Signs: Vital Signs Temperature 98.0 F 01/05/17 06:30 Pulse Rate 83 01/05/17 06:30 Respiratory Rate 18 01/05/17 06:30 Blood Pressure 129/62 01/05/17 06:30 O2 Sat by Pulse Oximetry (%) 98 01/04/17 09:00 Constitutional: Yes: No Distress Eyes: Yes: Conjunctiva Clear Cardiovascular: Yes: Regular Rate and Rhythm, S1, S2 Respiratory: Yes: Diminished Gastrointestinal: Yes: Normal Bowel Sounds, Soft, Other (less distended + leakage from feeding tube site) Labs: CBC, BMP 01/05/17 09:45 01/05/17 09:45 INR, PTT INR 1.37 (0.82-1.09) H 12/25/16 16:45 Assessment/Plan Fever/ leukocytosis possible sepsis GI// lung + BC SCN- transient bacteremia, likely skin source Developmental delay D/C aztreonam Complete 7d course vancomycin ( additional 24h)
[2017-01-05 11:39] LABS: HYPOCHROMIA FEW; PLATELET COUNT 400 K/MM3 (134-434); PLATELET ESTIMATE ADEQUATE (NORMAL); TEAR DROP CELLS 1+; TOTAL CELLS COUNTED 100
--- NOTE | 2017-01-05 14:08 | PN ---
Physical Exam: SUBJECTIVE: Patient seen and examined. Appears well, no acute distress, smiling in bed, awake. OBJECTIVE: Vital Signs Period Temp Pulse Resp BP Sys/Bruce Pulse Ox Last 24 Hr 98.0 F-98.4 F 72-95 16-18 103-129/62-80 PE Neuro: awake, alert, non verbal Pulm: b/l rhonchi, +NC CV: s1 s2 rrr no mrg Abd: J/G tube surrounding skin reddened, no pus noted Ext: upper ext contractures, no le edema Skin: R upper thigh PIV Laboratory Results - last 24 hr 01/05/17 01/05/17 09:45 09:45 WBC 15.3 H D RBC 4.92 Hgb 12.1 Hct 37.5 MCV 76.2 L MCH 24.6 L MCHC 32.3 RDW 19.4 H Plt Count 400 D MPV 7.7 Total Counted 100 Neutrophils % No Result Required. Neutrophils % (Manual) 60 D Lymphocytes % No Result Required. Lymphocytes % (Manual) 28 D Monocytes % (Manual) 5 Eosinophils % (Manual) 7 H D Hypochromia Few Platelet Estimate Adequate Platelet Comment No clumping noted Tear Drop Cells 1+ Fragmented RBCs 2+ Sodium 132 L Potassium 4.6 Chloride 95 L Carbon Dioxide 29 Anion Gap 8 BUN 23 H D Creatinine 0.3 L Random Glucose 104 Calcium 9.6 Active Medications Generic Name Dose Route Start Last Admin Trade Name Freq PRN Reason Stop Dose Admin Al Hydroxide/Mg Hydroxide 5 ml 12/26/16 18:49 Mylanta Oral Suspension - PEG ASDIR PRN DYSPEPSIA Atenolol 25 mg 01/01/17 10:00 01/05/17 10:40 Tenormin - GT 25 mg DAILY [facility] Administration Baclofen 10 mg 12/26/16 22:00 01/05/17 05:34 Lioresal - PEG 10 mg TID [facility] Administration Bisacodyl 10 mg 12/26/16 18:49 Dulcolax Suppository - RC DAILY PRN CONSTIPATION Calcium Carbonate/Cholecalciferol 1 tab 12/26/16 22:00 01/05/17 05:34 Os-Gerald 500+D - PEG 1 tab TID [facility] Administration Ferrous Sulfate 300 mg 12/27/16 10:00 01/05/17 10:29 Feosol GT 300 mg DAILY [facility] Administration Fluticasone Propionate 1 spray 12/27/16 10:00 01/05/17 10:33 Flonase - NS 1 spray DAILY [facility] Administration Vancomycin HCl 500 mg/ 100 mls @ 100 mls/hr 01/02/17 14:45 01/04/17 15:05 Dextrose IVPB 100 mls/hr Q24H [facility] Administration Aztreonam 0.5 gm/ Dextrose 50 mls @ 100 mls/hr 01/04/17 23:45 01/05/17 10:32 IVPB Not Given BID [facility] Lactobacillus Acidophilus 1 tab 12/26/16 22:00 01/05/17 10:28 Bacid - PEG 1 tab BID [facility] Administration Levetiracetam 500 mg 12/27/16 23:30 01/05/17 10:28 Keppra Injection - IVPB 500 mg BID [facility] Administration Metoclopramide HCl 5 mg 12/26/16 22:00 01/05/17 10:31 Reglan Oral Solution - PEG 5 mg BID [facility] Administration Metronidazole 500 mg 01/02/17 22:00 01/05/17 05:36 Flagyl - PEG 500 mg TID [facility] Administration Tizanidine 4 Mg Tab 1 each 12/26/16 22:00 01/05/17 05:35 - Patient Own Med PEG 1 each TID [facility] Administration Gabitril 4 Mg Tab - 4 mg 12/26/16 22:00 01/05/17 05:35 Patient Own Med PEG 4 mg TID [facility] Administration Nystatin 1 applic 12/31/16 10:30 01/05/17 10:32 Nystop Powder - TP 1 applic DAILY [facility] Administration Potassium Chloride 10 meq 12/27/16 10:00 01/05/17 10:30 Potassium Chloride Oral Liquid PEG 10 meq DAILY [facility] Administration Simethicone 40 mg 12/27/16 00:00 01/05/17 05:37 Mylicon Liquid - GT 40 mg Q6HPO [facility] Administration Sucralfate 1 gm 12/26/16 22:00 01/05/17 10:29 Carafate Oral Suspension - PEG 1 gm BID [facility] Administration Zinc Oxide/Panthenol/Vitamin E 1 applic 12/31/16 08:25 Balmex Cream - TP ASDIR PRN HYGEINE Microbiology 01/03/17 09:10 Blood Culture - Preliminary Blood - Peripheral Venous NO GROWTH OBTAINED AFTER 48 HOURS, INCUBATION TO CONTINUE FOR 3 DAYS. 01/03/17 09:10 Blood Culture - Preliminary Blood - Peripheral Venous NO GROWTH OBTAINED AFTER 48 HOURS, INCUBATION TO CONTINUE FOR 3 DAYS. 12/30/16 09:25 Blood Culture - Final Blood - Peripheral Venous NO GROWTH AFTER 5 DAYS INCUBATION 12/30/16 09:25 Blood Culture - Final Blood - Peripheral Venous NO GROWTH AFTER 5 DAYS INCUBATION 01/01/17 13:20 Blood Culture - Final Blood - Peripheral Venous Staphylococcus Epidermidis 01/01/17 13:20 Blood Culture - Final Blood - Peripheral Venous Staphylococcus Epidermidis Assessment: 36 year old male from [facility] with PMHx of congenital quadriplegia, general convulsive epilepsy, profound MR, monocular extropia, nonverbal, and severe mental deficits. Admitted for suspected abdominal infection. Hospital course complicated on 12/26 by episode of severe hypotension and bradycardia and an increase in WBC, now with negative blood cultures. Plan: 1. Staph epidermidis bacteremia - Repeat blood cx negative - Stop aztreonam - Continue vanco x24 hrs, will have competed 7 days - Abx per ID 2. C.diff - Ag and toxin positive - Flagyl 500mg gt tid 3. Abdominal infection, resolved - Initial imaging suggested a possible bowel perforation, however ruled out by Dr. Rausch in two flouroscopic exams and subsequent CT imaging - Completed course of Zosyn 12/22 4. Pulmonary bacterial colonization - Sputum cultures grew Klebsiella and Pseudomonas - Seen and evaluated by ID, this is considered colonization, no treatment 5. J/G tube replacement 12/26 - Working well - Barrier cream for excoriated skin - Continue Tube feeds 6. Seizure disorder - No seizure activity - Continue home medication 7. HTN - Continue antihypertensives with hold parameters 8. Iron deficiency anemia - Continue ferrous sulfate 9. Hyponatremia - Labile trend, however around baseline 10. PPx - Functional quadriplegia: dependent for all ADLs - Heparin 5,000u sq tid 11. Dispo - Requires continued inpatient care x24 hrs - Still on IV abx Visit type - Emergency Visit Emergency Visit: Yes ED Registration Date: 12/17/16 Care time: The patient presented to the Emergency Department on the above date and was hospitalized for further evaluation of their emergent condition. - New Patient This patient is new to me today: No - Critical Care Critical Care patient: No
[2017-01-05] MEDS: VANCOMYCIN 500 MG in DEXTROSE 5%-WATER - 100 ML IVPB SCH (17:47)
[2017-01-06] MEDS: SIMETHICONE 40 MG/0.6 ML BOTTLE GT SCH ×3 (00:30→11:39)
[2017-01-06] MEDS: CALCIUM 500MG/VIT-D 200 UNITS COMBO TABLET (FP) PEG SCH ×2 (06:21→14:56)
[2017-01-06] MEDS: metroNIDAZOLE 250 MG TABLET PEG SCH ×2 (06:21→14:56)
[2017-01-06] MEDS: BACLOFEN 10 MG TABLET (FP) PEG SCH ×2 (06:21→14:56)
[2017-01-06] MEDS: TIZANIDINE 4 MG PEG SCH ×2 (06:22→14:57)
[2017-01-06] MEDS: GABITRIL 4 MG PEG SCH ×2 (06:22→14:57)
[2017-01-06] MEDS ORDERED: INSULIN (NOVOLOG) ASPART 100 UNITS/ML 10ML VIAL ONE (06:57)
[2017-01-06 09:27] LABS: ANION GAP 9 (8-16); CALCIUM 9.3 mg/dL (8.5-10.1); CO2 30 mmol/L (21-32); CREATININE 0.3 mg/dL (0.7-1.3); GLUCOSE,RANDOM 95 mg/dL (74-106); MAGNESIUM 2.2 mg/dL (1.8-2.4); PHOSPHOROUS 4.7 mg/dL (2.5-4.9)
[2017-01-06 10:09] LABS: MCH 24.6 pg (25.7-33.7); MEAN CELL VOLUME 74.7 fl (80-96); MEAN PLT VOLUME 6.6 fl (7.5-11.1); PLATELET COUNT 453 K/MM3 (134-434); WHITE BLOOD COUNT 7.7 K/mm3 (4.0-10.0)
[2017-01-06] MEDS: SUCRALFATE 1 GM/10 ML UNIT DOSE CUPS PEG SCH (11:37)
[2017-01-06] MEDS: LACTOBACILLUS ACIDOPHILUS 1 EACH TAB (FP) PEG SCH (11:37)
[2017-01-06] MEDS: ATENOLOL 25 MG TABLET (FP) GT SCH (11:37)
[2017-01-06] MEDS: levETIRAcetam 500 MG/5 ML INJECTION VIAL IVPB SCH (11:38)
[2017-01-06] MEDS: MULTIVIT-MINERALS 236 ML ML GT SCH (11:38)
[2017-01-06] MEDS: POTASSIUM CHLORIDE ORAL LIQUID 20 MEQ/15 ML PEG SCH (11:38)
[2017-01-06] MEDS: FERROUS SO4 300 MG/5 ML ORAL SOLN UNIT DOSE CUPS GT SCH (11:38)
[2017-01-06] MEDS: FLUTICASONE PROP 0.05% 16 GM NASAL SPRAY NS SCH (11:39)
[2017-01-06] MEDS: METOCLOPRAMIDE HCL 5 MG/5 ML UNIT DOSE CUP PEG SCH (11:42)
[2017-01-06] MEDS ORDERED: PT OWN MED DRAWER 7, Y5N ONE (14:11)
--- NOTE | 2017-01-06 14:41 | DS ---
Physical Exam: SUBJECTIVE: Patient seen and examined. No issues overnight, no fever. OBJECTIVE: Vital Signs Period Temp Pulse Resp BP Sys/Bruce Pulse Ox Last 24 Hr 97.2 F-98.1 F 80-90 18-20 104-117/71-84 99 PE Neuro: awake, alert, non verbal Pulm: clear anteriorly scattered rhonchi CV: s1 s2 rrr no mrg Abd: J/G tube surrounding skin reddened, draining - chronic, no pus noted Ext: upper ext contractures, no le edema Laboratory Results - last 24 hr 01/06/17 01/06/17 01/06/17 08:35 08:35 09:50 WBC Cancelled 7.7 D Corrected WBC (auto) Cancelled RBC Cancelled 4.62 Hgb Cancelled 11.4 L Hct Cancelled 34.6 L MCV Cancelled 74.7 L MCH Cancelled 24.6 L MCHC Cancelled 33.0 RDW Cancelled 19.0 H Plt Count Cancelled 453 H MPV Cancelled 6.6 L D Differential Comment Cancelled Platelet Estimate Cancelled Platelet Comment Cancelled RBC Morphology Cancelled Sodium 132 L Potassium 4.5 Chloride 93 L Carbon Dioxide 30 Anion Gap 9 BUN 27 H Creatinine 0.3 L Random Glucose 95 Calcium 9.3 Phosphorus 4.7 D Magnesium 2.2 HOSPITAL COURSE: Date of Admission:12/17/16 Date of Discharge: 01/06/17 Minutes to complete discharge: 37 Discharge Summary Reason For Visit: SEPSIS Current Active Problems Anemia (Acute) Perforated small intestine (Acute) Pneumonia (Acute) Sepsis (Acute) Hospital Course: 36 year-old male [place] resident, with congenital quadriplegia, general convulsive epilepsy, profound MR, monocular extropia, nonverbal, and severe mental deficits. He was sent to the ED because of hypotension and hypoxia. On exam patient was observed to have pus surrounding his J tube and yellow fluid from is LLQ fistula. WBC 20k. Blood and urine cultures were negative. Culture of abdominal fluid was also negative. Initial CT noncontrast imaging was done on 12/17. The study was severely limited due in part to patient's inability to cooperate, a severe dextroscoliosis of the lumbar spine, and deformity of the pelvis. A PEG tube was identified within the body of the stomach which had been advanced through the duodenum into a proximal jejeunal loop. There was an apparent perforation of a jejunal loop by the tube with pooling of the tube feeding within the anterior pelvis. Patient was started on antibiotics and he completed a 6 day-course of Zosyn. He was afebrile throughout his hospital stay. His WBC has been within normal limits since 12/19/16. On 12/18/16 patient was brought to the IR suite and seen and examined by an interventional radiologist. Under fluoroscopy, there was no sign of a bowel perforation. Nor was there fluid/pooling within the anterior pelvis. The G/J tube was functioning and left in situ. Repeat CT imaging on 12/20/16 No gross contrast extravasation or pneumoperitoneum was identified. The PEG tube was again seen with the tip extending into the small bowel within the right abdomen. There was no free intraperitoneal fluid. Tube feeding was resumed on 12/23/16. Patient has been tolerating well. Although there was initial suspicion that the patient might have a perforated bowel, the initial CT study was severely limited. No perforation was seen under fluoroscopy or on repeat CT imaging. The G/J tube has remained in situ and is functioning well. On 12/25 found to be hypotensive and bradycardic transferred to [facility]. thought to be due to medication from tizanidine and anemia. Medication decreased and transfused 2 units prbc. Hospital Couse complicated by rising white count and fever. Blood cx drawn showed staph epidermidis bacteremia. Treated with aztreonam and vanco for 7 days. blood cx cleared and remained negative. C diff started and continue flagyl 500mg po TID x14 days total To return to [place], discussed with mother Ms. Causey and [employer] Doc. Condition: Stable - Instructions Diet, Activity, Other Instructions: Please return to the ED for any new, persistent, or worsening symptoms. Follow up with your PCP in 1week Take home medications as directed Complete 11 more days of flagyl 500mg TID for c diff Daily wound care to G/J tube site Referrals: Dae Gusman Jr [Primary Care Provider] - Disposition: ASSISTED FACILITY - Home Medications Comprehensive Discharge Medication List: Ambulatory Orders Atenolol [Tenormin -] 25 mg PEG DAILY 06/19/13 Baclofen [Lioresal -] 10 mg PEG TID 06/19/13 Mometasone Furoate [Nasonex] 1 - 2 inh NS DAILY 06/19/13 Pnv/Iron,Carb/Om-3/FA/Fat 1 [Multivitamin with Minerals Cap] 1 cap PEG DAILY Tiagabine HCl [Gabitril] 4 mg PEG TID 06/19/13 Tizanidine HCl 4 mg PEG QID 06/19/13 Albuterol 0.083% Nebulizer Lupe [Ventolin 0.083% Nebulizer Soln -] 1 neb NEB Q4H PRN 12/17/16 Bisacodyl Suppository [Dulcolax Suppository -] 10 mg RC ASDIR PRN 12/17/16 Calcium Carbonate/Vitamin D3 [Calcium 500-Vit D3 200 Caplet] 1 each PEG TID Enema Bag, Disposable [Enema Bag] 1 each RC ASDIR PRN 12/17/16 Ferrous Sulfate *Liquid* [Feosol *Liquid*] 5 ml PEG DAILY 12/17/16 Fluticasone Prop 0.05% Nasal [Flonase -] 1 spray NS DAILY 12/17/16 Mag Hydrox/Al Hydrox/Simeth [Antacid-Antigas Liquid] 5 ml PEG Q8H PRN 12/17/16 Metoclopramide HCl 5 mg PEG BID 12/17/16 Nut.tx.impaired Digest Fxn [Peptamen 1.5] 850 ml GT 2000 12/17/16 Potassium Chloride 7.5 ml PEG DAILY 12/17/16 Protein Supplement [Promod] 30 ml PEG DAILY 12/17/16 Simethicone Liquid [Mylicon Liquid -] 40 mg GT Q6H 12/17/16 Sucralfate [Carafate] 1 gm PEG BID 12/17/16 Zinc Gluconate [Zinc] 10 mg DAILY 12/17/16 Zinc Oxide 0 gm TP PRN 12/17/16 Lactobacillus Acidophilus [Acidophilus] 1 each PEG BID 12/23/16 Levetiracetam [Keppra Oral Solution -] 500 mg GT BID #5 ml 12/24/16 Metronidazole [Flagyl -] 500 mg PEG TID #33 tablet 01/06/17 This patient is new to me today: No Emergency Visit: Yes ED Registration Date: 12/17/16 Care time: The patient presented to the Emergency Department on the above date and was hospitalized for further evaluation of their emergent condition. Critical Care patient: No - Discharge Referral Referred to [facility] No
[2017-01-06] MEDS: VANCOMYCIN 500 MG in DEXTROSE 5%-WATER - 100 ML IVPB SCH (14:56)
[2017-01-06] MEDS: NYSTATIN POWDER 100,000 UNITS/GM - 15 GM TOPICAL POWDER TP SCH (14:57)
[2017-01-06 17:18] VITALS: BP 110/65; PULSE 97; TEMP 98.1
== END 2017-01-06 17:34 | disposition home or self-care (01) | DRG 720 ==
LOC: JER 20:22 → JERBED 12-17 10:38 → JICU 12-17 20:37 → J8W 12-21 13:17 → JICU 12-25 18:32 → J2W 12-26 22:56 → J6S 12-27 03:33 → J8W 12-30 15:12
PROVIDERS: ADMIT Internal Medicine; ATTEND Nurse Practitioner Acute Care
PROC: 30233N1 Transfusion of Nonautologous Red Blood Cells into Peripheral Vein, Percutaneous Approach (ICD-10-PCS; 2016-12-25)
PROC: 0D2DXUZ Change Feeding Device in Lower Intestinal Tract, External Approach (ICD-10-PCS; principal; 2016-12-26)
DX: A41.9 Sepsis, unspecified organism (principal); F73 Profound intellectual disabilities; Z68.1 Body mass index [BMI] 19.9 or less, adult; G80.8 Other cerebral palsy; J18.9 Pneumonia, unspecified organism; K63.1 Perforation of intestine (nontraumatic); I95.9 Hypotension, unspecified; A04.72 Enterocolitis due to Clostridium difficile, not specified as recurrent; G40.909 Epilepsy, unspecified, not intractable, without status epilepticus; D50.9 Iron deficiency anemia, unspecified; E87.1 Hypo-osmolality and hyponatremia; R53.2 Functional quadriplegia; D72.829 Elevated white blood cell count, unspecified; E83.42 Hypomagnesemia; R00.1 Bradycardia, unspecified; Z43.1 Encounter for attention to gastrostomy; I10 Essential (primary) hypertension; E87.6 Hypokalemia; E83.39 Other disorders of phosphorus metabolism; L89.213 Pressure ulcer of right hip, stage 3; E43 Unspecified severe protein-calorie malnutrition
CPT/HCPCS: 36415; 36430; 36600; 49452; 49465; 71010-TC; 71250-TC; 72192-TC; 74000-TC; 74020-TC; 74176-TC; 76000-TC; 80048; 80053; 80076; 81003; 81015; 82272; 82803; 83010; 83605; 83615; 83735; 84100; 84132; 84484; 85025; 85027; 85044; 85610; 85651; 85730; 86140; 86850; 86900; 86901; 86922; 87040; 87070; 87081; 87086; 87186; 87205; 87324; 87449; 93005; 93010; 93306-TC; 99285-25; C1769; J0475; J1644; P9038; P9058; Q9967

== ENCOUNTER 2017-02-05 20:20 | Observation (INO) | payer OTHER ==
--- NOTE | 2017-02-05 21:35 | PDOC ---
Rapid Medical Evaluation Chief Complaint: G Tube Problem Time Seen by Provider: 02/05/17 21:34 Medical Evaluation: Allergies Allergy/AdvReac Type Severity Reaction Status Date / Time No Known Allergies Allergy Verified 01/24/17 01:24 02/05/17 21:36 I Have performed a brief in-person evaluation of this patient. c/o GT extension is cracked. patient is a resident of [facility]. pertinent physical exam findings: Patient alert, smiling. I have ordered the following: n/a The patient will proceed to the ED for further evaluation.
[2017-02-05 21:38] VITALS: TEMP 97.4; BMI 20.2
--- NOTE | 2017-02-05 23:24 | PDOC ---
History of Present Illness - History of Present Illness Initial Comments: 02/05/17 23:42 The patient is a 36-year-old male, [place] resident, with a significant past medical history of congenital quadriplegia, general convulsive epilepsy, profound MR, nonverbal severe mental deficits, who presents to the emergency department with a broken G J-tube. G-tube is in place but leaking and broken at the tip. <Aidee Salazar - Last Filed: 02/05/17 23:42> <Citlaly Dougherty - Last Filed: 02/06/17 00:16> - General Chief Complaint: G Tube Problem Stated Complaint: FEEDING TUBE PLACEMENT Time Seen by Provider: 02/05/17 21:34 Past History <Aidee Salazar - Last Filed: 02/05/17 23:42> - Past Medical History Anemia: No DVT: No Dementia: Yes GI Disorders: Yes (GERD) Seizures: Yes Thyroid Disease: Yes - Surgical History Abdominal Surgery: Yes (feeding tube) - Immunization History Immunization Up to Date: Yes - Suicide/Smoking/Psychosocial Hx Smoking History: Never smoked Have you smoked in the past 12 months: No Information on smoking cessation initiated: No Hx Alcohol Use: No Drug/Substance Use Hx: No Substance Use Type: None <Citlaly Dougherty - Last Filed: 02/06/17 00:16> - Past Medical History Allergies/Adverse Reactions: Allergies Allergy/AdvReac Type Severity Reaction Status Date / Time No Known Allergies Allergy Verified 02/05/17 21:35 Home Medications: Ambulatory Orders Atenolol [Tenormin -] 25 mg PEG DAILY 06/19/13 Baclofen [Lioresal -] 10 mg PEG TID 06/19/13 Mometasone Furoate [Nasonex] 1 - 2 inh NS DAILY 06/19/13 Pnv/Iron,Carb/Om-3/FA/Fat 1 [Multivitamin with Minerals Cap] 1 cap PEG DAILY Tiagabine HCl [Gabitril] 4 mg PEG TID 06/19/13 Tizanidine HCl 4 mg PEG QID 06/19/13 Albuterol 0.083% Nebulizer Lupe [Ventolin 0.083% Nebulizer Soln -] 1 neb NEB Q4H PRN 12/17/16 Bisacodyl Suppository [Dulcolax Suppository -] 10 mg RC ASDIR PRN 12/17/16 Calcium Carbonate/Vitamin D3 [Calcium 500-Vit D3 200 Caplet] 1 each PEG TID Enema Bag, Disposable [Enema Bag] 1 each RC ASDIR PRN 12/17/16 Ferrous Sulfate *Liquid* [Feosol *Liquid*] 5 ml PEG DAILY 12/17/16 Fluticasone Prop 0.05% Nasal [Flonase -] 1 spray NS DAILY 12/17/16 Mag Hydrox/Al Hydrox/Simeth [Antacid-Antigas Liquid] 5 ml PEG Q8H PRN 12/17/16 Metoclopramide HCl 5 mg PEG BID 12/17/16 Nut.tx.impaired Digest Fxn [Peptamen 1.5] 850 ml GT 2000 12/17/16 Potassium Chloride 7.5 ml PEG DAILY 12/17/16 Protein Supplement [Promod] 30 ml PEG DAILY 12/17/16 Simethicone Liquid [Mylicon Liquid -] 40 mg GT Q6H 12/17/16 Sucralfate [Carafate] 1 gm PEG BID 12/17/16 Zinc Gluconate [Zinc] 10 mg DAILY 12/17/16 Zinc Oxide 0 gm TP PRN 12/17/16 Lactobacillus Acidophilus [Acidophilus] 1 each PEG BID 12/23/16 Levetiracetam [Keppra Oral Solution -] 500 mg GT BID #5 ml 12/24/16 Zinc Oxide/Panthenol/Vitamin E [Balmex Cream -] 1 applic TP ASDIR PRN #0 tube Review of Systems - Review of Systems Able to Perform ROS?: No (MR, nonverbal) <Aidee Salazar - Last Filed: 02/05/17 23:42> *Physical Exam - Vital Signs Last Vital Signs Temp Pulse Resp BP Pulse Ox 97.4 F L 100 H 16 132/89 97 02/05/17 21:35 02/05/17 21:35 02/05/17 21:35 02/05/17 21:35 02/05/17 21:35 - Physical Exam Comments: 02/05/17 23:43 Constitutional: Awake, alert, nonverbal. severe MR. No acute distress. Head: Normocephalic. Atraumatic Eyes: PERRL. EOMI. Conjunctivae are not pale. ENT: Mucous membranes are moist and intact. Posterior pharynx without exudates or erythema. Uvula midline. Neck: Supple. Full ROM. No lymphadenopathy. Cardiovascular: Regular rate. Regular rhythm. S1, S2 regular. Distal pulses are 2+ and symmetric. Pulmonary/Chest: No evidence of respiratory distress. Clear to auscultation bilaterally No wheezing, rales or rhonchi. Abdominal: (+) GJ Tube is cracked, Soft and non-distended. There is no tenderness. No rebound, guarding or rigidity. No organomegaly. No palpable masses. Good bowel sounds. Back: No CVA tenderness. Musculoskeletal: No edema. No cyanosis. No clubbing. Full range of motion in all extremities. Nocalf tenderness. Radial/pedal pulses are intact and 2+ bilaterally Skin: Skin is warm and dry. No petechiae. No purpura. Neurological: (+) Mental retardation, Cranial nerves II-XII are grossly intact. Normal speech. Strength is grossly symmetric. No sensory deficits. <Aidee Salazar - Last Filed: 02/05/17 23:42> - Vital Signs Last Vital Signs Temp Pulse Resp BP Pulse Ox 97.4 F L 100 H 16 132/89 97 02/05/17 21:35 02/05/17 21:35 02/05/17 21:35 02/05/17 21:35 02/05/17 21:35 <Citlaly Dougherty - Last Filed: 02/06/17 00:16> Medical Decision Making - Medical Decision Making 02/05/17 23:37 a/p: 36yo male with congenital quadriplegia and MR with broken GJ tube -not amenable to bedside replacement. requires replacement by IR or surgery -will check labs and place on hospitalist service for IR to replace tomorrow. 02/05/17 23:56 case discussed with IM resident, accept pt to service under Dr. Carrasquillo pending IR placement of GJ tube tomorrow 02/06/17 00:15 case discussed with the hospitalist SUBCONTRACT ADMINISTRATOR who accepts pt to service <Citlaly Dougherty - Last Filed: 02/06/17 00:16> *DC/Admit/Observation/Transfer - Attestations Scribe Attestion: 02/05/17 23:44 Documentation prepared by Aidee Salazar, acting as director of medical services for Citlaly Dougherty DO, <Aidee Salazar - Last Filed: 02/05/17 23:42> - Discharge Dispostion Admit: Yes - Attestations Physician Attestion: 02/05/17 23:57 I, Dr. Citlaly Dougherty DO, attest that this document has been prepared under my direction and personally reviewed by me in its entirety. I further attest, that it accurately reflects all work, treatment, procedures and medical decision -making performed by me. <Citlaly Dougherty - Last Filed: 02/06/17 00:16> Diagnosis at time of Disposition: Feeding tube dysfunction - Discharge Dispostion Condition at time of disposition: Stable - Referrals Referrals: Dae Gusman Jr [Primary Care Provider] - - Patient Instructions - Post Discharge Activity
[2017-02-05] MEDS ORDERED: SODIUM CHLORIDE 0.9% 1000 ML INFUS.BAG IV ONE (23:36)
[2017-02-06 01:33] LABS: BASOPHIL 0.8 % (0-2.0); EOSINOPHIL 3.2 % (0-4.5); MCH 24.7 pg (25.7-33.7); MCHC 33.5 g/dl (32.0-35.9); MEAN CELL VOLUME 73.7 fl (80-96); MEAN PLT VOLUME 7.1 fl (7.5-11.1); NEUTROPHILS 62.2 % (42.8-82.8); PLATELET COUNT 353 K/MM3 (134-434); RDW 18.4 % (11.9-15.9); WHITE BLOOD COUNT 9.1 K/mm3 (4.0-10.0)
[2017-02-06 01:51] LABS: INR 1.06 (0.82-1.09)
[2017-02-06 01:54] LABS: ACTIVATED PTT 33.9 SECONDS (26.9-34.4)
[2017-02-06 02:12] LABS: ALBUMIN 3.9 g/dl (3.4-5.0); ANION GAP 11 (8-16); BILIRUBIN,TOTAL 0.6 mg/dL (0.2-1.0); CALCIUM 9.7 mg/dL (8.5-10.1); CO2 28 mmol/L (21-32); CREATININE 0.4 mg/dL (0.7-1.3); GLUCOSE,RANDOM 94 mg/dL (74-106); SGOT/AST 9 U/L (15-37); SGPT/ALT 21 U/L (12-78); TOT PROT 8.8 g/dl (6.4-8.2)
[2017-02-06 02:13] LABS: ALK PHOS 67 U/L (45-117)
--- NOTE | 2017-02-06 06:45 | HP ---
CHIEF COMPLAINT: Feeding Tube Dysfunction PCP: Dr. Dae Gusman Jr HISTORY OF PRESENT ILLNESS: This is a 36 y/o male with a past medical history of profound MR, CP Quadriplegic, Generalized Convulsive Epilepsy, Hyperthyroidism, Aspiration Pneumonia, GERD, Scoliosis. Who presents from the [facility] for dysfunctional feeding tube. Patient's catalytic case operator reports the tube was noted to be split overnight. The G-tube is in place but leaking and broken at the tip. ER course was notable for: (1) Hgb 11.6. Hct 34.7 (2) (3) Recent Travel: None PAST MEDICAL HISTORY: See HPI PAST SURGICAL HISTORY: JT placement Social History: Smoking: Alcohol: Drugs: Family History: Allergies No Known Allergies Allergy (Verified 02/05/17 21:35) HOME MEDICATIONS: Home Medications Medication Instructions Recorded Atenolol [Tenormin -] 25 mg PEG DAILY 06/19/13 Baclofen [Lioresal -] 10 mg PEG TID 06/19/13 Mometasone Furoate [Nasonex] 1 - 2 inh NS DAILY 06/19/13 Pnv/Iron,Carb/Om-3/FA/Fat 1 1 cap PEG DAILY 06/19/13 [Multivitamin with Minerals Cap] Tiagabine HCl [Gabitril] 4 mg PEG TID 06/19/13 Tizanidine HCl 4 mg PEG QID 06/19/13 Albuterol 0.083% Nebulizer Lupe 1 neb NEB Q4H PRN 12/17/16 [Ventolin 0.083% Nebulizer Soln -] Bisacodyl Suppository [Dulcolax 10 mg RC ASDIR PRN 12/17/16 Suppository -] Calcium Carbonate/Vitamin D3 1 each PEG TID 12/17/16 [Calcium 500-Vit D3 200 Caplet] Enema Bag, Disposable [Enema Bag] 1 each RC ASDIR PRN 12/17/16 Ferrous Sulfate *Liquid* [Feosol 5 ml PEG DAILY 12/17/16 *Liquid*] Fluticasone Prop 0.05% Nasal 1 spray NS DAILY 12/17/16 [Flonase -] Mag Hydrox/Al Hydrox/Simeth 5 ml PEG Q8H PRN 12/17/16 [Antacid-Antigas Liquid] Metoclopramide HCl 5 mg PEG BID 12/17/16 Nut.tx.impaired Digest Fxn 850 ml GT 199912/17/16 [Peptamen 1.5] Potassium Chloride 7.5 ml PEG DAILY 12/17/16 Protein Supplement [Promod] 30 ml PEG DAILY 12/17/16 Simethicone Liquid [Mylicon Liquid 40 mg GT Q6H 12/17/16 -] Sucralfate [Carafate] 1 gm PEG BID 12/17/16 Zinc Gluconate [Zinc] 10 mg DAILY 12/17/16 Zinc Oxide 0 gm TP PRN 12/17/16 Lactobacillus Acidophilus 1 each PEG BID 12/23/16 [Acidophilus] Levetiracetam [Keppra Oral 500 mg GT BID #5 ml 12/24/16 Solution -] Zinc Oxide/Panthenol/Vitamin E 1 applic TP ASDIR PRN #0 tube 01/06/17 [Balmex Cream -] REVIEW OF SYSTEMS Unable to obtain- Profound MR CONSTITUTIONAL: Absent: fever, chills, diaphoresis, generalized weakness, malaise, loss of appetite, weight change HEENT: Absent: rhinorrhea, nasal congestion, throat pain, throat swelling, difficulty swallowing, mouth swelling, ear pain, eye pain, visual changes CARDIOVASCULAR: Absent: chest pain, syncope, palpitations, irregular heart rate, lightheadedness , peripheral edema RESPIRATORY: Absent: cough, shortness of breath, dyspnea with exertion, orthopnea, wheezing, stridor, hemoptysis GASTROINTESTINAL: Absent: abdominal pain, abdominal distension, nausea, vomiting, diarrhea, constipation, melena, hematochezia GENITOURINARY: Absent: dysuria, frequency, urgency, hesitancy, hematuria, flank pain, genital pain MUSCULOSKELETAL: Absent: myalgia, arthralgia, joint swelling, back pain, neck pain SKIN: Absent: rash, itching, pallor HEMATOLOGIC/IMMUNOLOGIC: Absent: easy bleeding, easy bruising, lymphadenopathy, frequent infections ENDOCRINE: Absent: unexplained weight gain, unexplained weight loss, heat intolerance, cold intolerance NEUROLOGIC: Absent: headache, focal weakness or paresthesias, dizziness, unsteady gait, seizure, mental status changes, bladder or bowel incontinence PSYCHIATRIC: Absent: anxiety, depression, suicidal or homicidal ideation, hallucinations. PHYSICAL EXAMINATION Vital Signs - 24 hr 02/05/17 21:35 Temperature 97.4 F L Pulse Rate 100 H Respiratory 16 Rate Blood Pressure 132/89 O2 Sat by Pulse 97 Oximetry (%) GENERAL: Awake, alert, oriented to baseline, in no acute distress. HEAD: Normal with no signs of trauma. EYES: Pupils equal, round and reactive to light, extraocular movements intact, sclera anicteric, conjunctiva clear. No lid lag. EARS, NOSE, THROAT: Ears normal, nares patent, oropharynx clear without exudates. Moist mucous membranes. NECK: Normal range of motion, supple without lymphadenopathy, JVD, or masses. LUNGS: Breath sounds equal, clear to auscultation bilaterally. No wheezes, and no crackles. No accessory muscle use. HEART: Regular rate and rhythm, normal S1 and S2 without murmur, rub or gallop. ABDOMEN: Soft, nontender, not distended, normoactive bowel sounds, no guarding, no rebound, no masses. No hepatomegaly or splenomegaly. MUSCULOSKELETAL: Pasive range of motion at all joints. No tenderness. No CVA tenderness. UPPER EXTREMITIES: 2+ pulses, warm, well perfused, severely contractured, flaccid. No peripheral edema LOWER EXTREMITIES: 2+ pulses, warm, well-perfused. No calf tenderness. flaccid. No peripheral edema. NEUROLOGICAL: at baseline for MR/CP PSYCHIATRIC: Cooperative. Good eye contact at baseline SKIN: Warm, dry, normal turgor, no rashes or lesions noted, normal capillary refill. Laboratory Results - last 24 hr 02/06/17 02/06/17 02/06/17 01:15 01:15 01:15 WBC 9.1 RBC 4.71 Hgb 11.6 L Hct 34.7 L MCV 73.7 L MCH 24.7 L MCHC 33.5 RDW 18.4 H Plt Count 353 MPV 7.1 L Neutrophils % 62.2 Lymphocytes % 24.5 D Monocytes % 9.3 Eosinophils % 3.2 Basophils % 0.8 PT with INR 12.00 H INR 1.06 PTT (Actin FS) 33.9 D Sodium 137 Potassium 4.4 D Chloride 98 Carbon Dioxide 28 Anion Gap 11 BUN 22 H D Creatinine 0.4 L D Creat Clearance w eGFR > 60 Random Glucose 94 D Calcium 9.7 Total Bilirubin 0.6 D AST 9 L D ALT 21 Alkaline Phosphatase 67 Total Protein 8.8 H Albumin 3.9 ASSESSMENT/PLAN: This is a 36 y/o man with profound MR, CP with quadriplegia. Placed in Observation for Dysfunctional Feeding Tube for further evaluation of their emergent condition. FEN -NS@42ml/hr -Replete lytes prn -NPO Code Status: Full Code Dispo: Observation Problem List - Problem (1) Feeding tube dysfunction Assessment/Plan: - Appreciate IR consult for J- tube replacement Code(s): T85.598A - [facility] COMPL OF GASTROINTESTINAL PROSTH DEV/GRFT, INIT (2) Profound mental retardation Assessment/Plan: -Continue to monitor -Fall Precautions Code(s): F73 - PROFOUND INTELLECTUAL DISABILITIES (3) Quadriplegic infantile cerebral palsy Assessment/Plan: - Continue total care as needed Code(s): G80.8 - OTHER CEREBRAL PALSY (4) Generalized convulsive epilepsy Assessment/Plan: - Continue Keppra via IV secondary to non functional J tube - Seizure Precautions Code(s): G40.309 - GEN IDIOPATHIC EPILEPSY, NOT INTRACTABLE, W/O STAT EPI (5) Hyperthyroidism Assessment/Plan: - Continue to monitor and trait with interventions accordingly Code(s): E05.90 - THYROTOXICOSIS, UNSP WITHOUT THYROTOXIC CRISIS OR STORM (6) GERD (gastroesophageal reflux disease) Assessment/Plan: -Continue PPI Code(s): K21.9 - GASTRO-ESOPHAGEAL REFLUX DISEASE WITHOUT ESOPHAGITIS (7) Anemia Assessment/Plan: - Hgb 11.6 at baseline - Will transfuse if Hgb < 7.0 Code(s): D64.9 - ANEMIA, UNSPECIFIED Qualifiers: Anemia type: acquired or hereditary hemolytic anemia Hemolytic anemia type : acquired, nonautoimmune, other Qualified Code(s): D59.4 - Other nonautoimmune hemolytic anemias (8) DVT prophylaxis Assessment/Plan: -TEDS - SCDs - Code(s): JWL8259 - Visit type - Emergency Visit Emergency Visit: Yes ED Registration Date: 02/05/17 Care time: The patient presented to the Emergency Department on the above date and was hospitalized for further evaluation of their emergent condition. - New Patient This patient is new to me today: Yes Date on this admission: 02/06/17 - Critical Care Critical Care patient: No
[2017-02-06] MEDS ORDERED: ZINC OXIDE/PANTHENOL/VITAMIN E 56 GM TUBE TP PRN (06:55)
[2017-02-06] MEDS ORDERED: SODIUM CHLORIDE 1,000 ML IV SCH (08:45)
[2017-02-06] MEDS ORDERED: levETIRAcetam 500 MG/5 ML INJECTION VIAL IVPB SCH (10:00)
--- NOTE | 2017-02-06 12:59 | PN ---
Progress Note (short form) - Note Progress Note: The patient has gastrojeunal tube. It replaced on last admission by IR. Please contact IR. I am available should you need me.
--- NOTE | 2017-02-06 15:42 | DS ---
Physical Examination Vital Signs: Vital Signs Temperature 97.4 F L 02/05/17 21:35 Pulse Rate 99 H 02/06/17 14:34 Respiratory Rate 16 02/06/17 14:34 Blood Pressure 153/94 02/06/17 14:34 O2 Sat by Pulse Oximetry (%) 98 02/06/17 14:34 Labs: CBC, BMP 02/06/17 01:15 02/06/17 01:15 Discharge Summary Reason For Visit: FEEDING TUBE DYSFUNCTION Current Active Problems DVT prophylaxis (Acute) Feeding tube dysfunction (Acute) GERD (gastroesophageal reflux disease) (Acute) Generalized convulsive epilepsy (Acute) Hyperthyroidism (Acute) Profound mental retardation (Acute) Quadriplegic infantile cerebral palsy (Acute) Hospital Course: G-J tube replaced Condition: Stable - Instructions Diet, Activity, Other Instructions: You are being transferred back to [facility] with a new G-J tube. Please follow-up with Dr. Rose (GI) to discuss further options for feeding as the G-J tube continues to break/fall out. Referrals: Dae Gusman Jr [Primary Care Provider] - Juan Pablo Rose MD [Staff Physician] - 1 Week Disposition: TRANSFER ACUTE CARE/OTHER HOSP - Home Medications Comprehensive Discharge Medication List: Ambulatory Orders Atenolol [Tenormin -] 25 mg PEG DAILY 06/19/13 Baclofen [Lioresal -] 10 mg PEG TID 06/19/13 Mometasone Furoate [Nasonex] 1 - 2 inh NS DAILY 06/19/13 Pnv/Iron,Carb/Om-3/FA/Fat 1 [Multivitamin with Minerals Cap] 1 cap PEG DAILY Tiagabine HCl [Gabitril] 4 mg PEG TID 06/19/13 Tizanidine HCl 4 mg PEG QID 06/19/13 Albuterol 0.083% Nebulizer Lupe [Ventolin 0.083% Nebulizer Soln -] 1 neb NEB Q4H PRN 12/17/16 Bisacodyl Suppository [Dulcolax Suppository -] 10 mg RC ASDIR PRN 12/17/16 Calcium Carbonate/Vitamin D3 [Calcium 500-Vit D3 200 Caplet] 1 each PEG TID Enema Bag, Disposable [Enema Bag] 1 each RC ASDIR PRN 12/17/16 Ferrous Sulfate *Liquid* [Feosol *Liquid*] 5 ml PEG DAILY 12/17/16 Fluticasone Prop 0.05% Nasal [Flonase -] 1 spray NS DAILY 12/17/16 Mag Hydrox/Al Hydrox/Simeth [Antacid-Antigas Liquid] 5 ml PEG Q8H PRN 12/17/16 Metoclopramide HCl 5 mg PEG BID 12/17/16 Nut.tx.impaired Digest Fxn [Peptamen 1.5] 850 ml GT 199912/17/16 Potassium Chloride 7.5 ml PEG DAILY 12/17/16 Protein Supplement [Promod] 30 ml PEG DAILY 12/17/16 Simethicone Liquid [Mylicon Liquid -] 40 mg GT Q6H 12/17/16 Sucralfate [Carafate] 1 gm PEG BID 12/17/16 Zinc Oxide 0 gm TP PRN 12/17/16 Lactobacillus Acidophilus [Acidophilus] 1 each PEG BID 12/23/16 Levetiracetam [Keppra Oral Solution -] 500 mg GT BID #5 ml 12/24/16 Zinc Oxide/Panthenol/Vitamin E [Balmex Cream -] 1 applic TP ASDIR PRN #0 tube
[2017-02-06 17:21] VITALS: BP 149/85; PULSE 91
== END 2017-02-06 17:25 ==
LOC: JER 20:20 → JERBED 23:57
PROVIDERS: ADMIT Internal Medicine; ATTEND Registered Nurse
PROC: 0D2DXUZ Change Feeding Device in Lower Intestinal Tract, External Approach (ICD-10-PCS; principal; 2017-02-05)
DX: K94.23 Gastrostomy malfunction (principal); Y83.3 Surgical operation with formation of external stoma as the cause of abnormal reaction of the patient, or of later complication, without mention of misadventure at the time of the procedure; Y92.129 Unspecified place in nursing home as the place of occurrence of the external cause; G80.8 Other cerebral palsy; F73 Profound intellectual disabilities; F81.9 Developmental disorder of scholastic skills, unspecified; E05.90 Thyrotoxicosis, unspecified without thyrotoxic crisis or storm; K21.9 Gastro-esophageal reflux disease without esophagitis; G40.309 Generalized idiopathic epilepsy and epileptic syndromes, not intractable, without status epilepticus
CPT/HCPCS: 36415; 49452; 76000-TC; 80053; 85025; 85610; 85730; 99284-25; C1769; C1887; G0378

== ENCOUNTER 2017-02-23 06:10 | Emergency (ER) | payer OTHER ==
[2017-02-23 06:43] VITALS: TEMP 98.5; BMI 17.6
--- NOTE | 2017-02-23 07:28 | PDOC ---
History of Present Illness - History of Present Illness Initial Comments: 02/23/17 07:44 The patient is a 36 year old male, with a significant past medical history of cp quadriplegia, hyperthyroidism, aspiration pneumonia, GERD, mental retardation , and epilepsy who was BIBA from [facility] and presents to the emergency department for G-J tube displacement. As per brush loader and handle attacher, patients g-tube came out overnight. Patient is unable to provide adequate history to due his mental status. Patient has been seen here recently for similar issue. <Jihan Arteaga - Last Filed: 02/23/17 07:44> <Brody Montiel - Last Filed: 02/23/17 14:25> - General Chief Complaint: G Tube Problem Stated Complaint: G TUBE PROBLEM Time Seen by Provider: 02/23/17 07:16 Past History <Jihan Arteaga - Last Filed: 02/23/17 07:44> - Past Medical History Anemia: No COPD: No DVT: No Dementia: Yes GI Disorders: Yes (GERD) Seizures: Yes Thyroid Disease: Yes - Surgical History Abdominal Surgery: Yes (feeding tube) - Immunization History Immunization Up to Date: Yes - Suicide/Smoking/Psychosocial Hx Smoking History: Never smoked Have you smoked in the past 12 months: No Information on smoking cessation initiated: No Hx Alcohol Use: No Drug/Substance Use Hx: No Substance Use Type: None <Brody Montiel - Last Filed: 02/23/17 14:25> - Past Medical History Allergies/Adverse Reactions: Allergies Allergy/AdvReac Type Severity Reaction Status Date / Time No Known Allergies Allergy Verified 02/23/17 06:41 Home Medications: Ambulatory Orders Atenolol [Tenormin -] 25 mg PEG DAILY 06/19/13 Baclofen [Lioresal -] 10 mg PEG TID 06/19/13 Mometasone Furoate [Nasonex] 1 - 2 inh NS DAILY 06/19/13 Pnv/Iron,Carb/Om-3/FA/Fat 1 [Multivitamin with Minerals Cap] 1 cap PEG DAILY Tiagabine HCl [Gabitril] 4 mg PEG TID 06/19/13 Tizanidine HCl 4 mg PEG QID 06/19/13 Albuterol 0.083% Nebulizer Lupe [Ventolin 0.083% Nebulizer Soln -] 1 neb NEB Q4H PRN 12/17/16 Bisacodyl Suppository [Dulcolax Suppository -] 10 mg RC ASDIR PRN 12/17/16 Calcium Carbonate/Vitamin D3 [Calcium 500-Vit D3 200 Caplet] 1 each PEG TID Enema Bag, Disposable [Enema Bag] 1 each RC ASDIR PRN 12/17/16 Ferrous Sulfate *Liquid* [Feosol *Liquid*] 5 ml PEG DAILY 12/17/16 Fluticasone Prop 0.05% Nasal [Flonase -] 1 spray NS DAILY 12/17/16 Mag Hydrox/Al Hydrox/Simeth [Antacid-Antigas Liquid] 5 ml PEG Q8H PRN 12/17/16 Metoclopramide HCl 5 mg PEG BID 12/17/16 Potassium Chloride 7.5 ml PEG DAILY 12/17/16 Simethicone Liquid [Mylicon Liquid -] 40 mg GT Q6H 12/17/16 Sucralfate [Carafate] 1 gm PEG BID 12/17/16 Zinc Oxide 1 gm TP BID 12/17/16 Lactobacillus Acidophilus [Acidophilus] 1 each PEG BID 12/23/16 Zinc Oxide/Panthenol/Vitamin E [Balmex Cream -] 1 applic TP ASDIR PRN #0 tube Ascorbic Acid [Vitamin C Oral Solution -] 500 mg GT DAILY 02/23/17 Bacitracin - [Bacitracin Topical Ointment -] 1 applic TP TID 02/23/17 Clindamycin 1% Gel [Cleocin 1% Gel -] 1 applic TP DAILY 02/23/17 Clotrimazole/Betamet Diprop [Lotrisone -] 1 applic TP TID 02/23/17 Tropicamide 0.5% Ophth Soln [Mydriacyl 0.5% Eye Drops -] 15 ml OP DAILY Review of Systems - Review of Systems Able to Perform ROS?: No (nonverbal, profound MR) <Brody Montiel - Last Filed: 02/23/17 14:25> *Physical Exam - Vital Signs Last Vital Signs Temp Pulse Resp BP Pulse Ox 98.5 F 97 H 14 150/109 97 02/23/17 06:42 02/23/17 06:42 02/23/17 06:42 02/23/17 06:42 02/23/17 06:42 - Physical Exam Comments: 02/23/17 07:44 GENERAL: Alert, seated in wheelchairs,nonverbal at baseline, smiling, no acute distress HEAD: Normal with no signs of trauma. EYES: Pupils equal, round and reactive to light, extraocular movements intact, sclera anicteric, conjunctiva clear with no pallor. ENT: Ears normal, nares patent, oropharynx clear without exudates. Moist mucous membranes. NECK: Normal range of motion, supple without lymphadenopathy, JVD, or masses. LUNGS: Breath sounds equal, clear to auscultation bilaterally. No wheeze/ crackles. Airway patent HEART: Regular rate and rhythm, normal S1 and S2 without murmur or rub. ABDOMEN: Soft, non-distended, no guarding. Displace g-j tube with intact an inflated balloon. The g-j site was draining some mucous fluid. No bleeding, no erythema, no swelling. No palpable masses. No hepatosplenomegaly. EXTREMITIES: Contracture x4. no edema. No clubbing or cyanosis. No cords, erythema, or tenderness. NEUROLOGICAL: Unable to assess. PSYCH: Unable to access. SKIN: Warm, Dry, normal turgor, no rashes or lesions noted. <Jihan Arteaga - Last Filed: 02/23/17 07:44> - Vital Signs Last Vital Signs Temp Pulse Resp BP Pulse Ox 98.5 F 97 H 14 150/109 97 02/23/17 06:42 02/23/17 06:42 02/23/17 06:42 02/23/17 06:42 02/23/17 06:42 <Brody Montiel - Last Filed: 02/23/17 14:25> Medical Decision Making - Medical Decision Making 02/23/17 07:36 36y/o M quadriplegia, profound MR, dependent on GJ tube p/w displaced tube overnight. Occurred during sleep, no bleeding/vomiting. Pt otherwise at his baseline. Has been seen here twice in the last month and replaced successfully by IR. afebrile alert in wheelchair, smiling, nonverbal at baseline abd soft/nd/nt. displaced GJ tube with intact and inflated balloon. mucous discharge from site, no bleeding/swelling/erythema 36y/o M with displaced GJ tube, no other concerning findings. - will need replacement by IR. Order entered - dispo back home once completed 02/23/17 14:22 GJ tube successfully replaced by IR. Abd benign, feels and looks at baseline. Ambulance to return to [place]. Aide at bedside. <Brody Montiel - Last Filed: 02/23/17 14:25> *DC/Admit/Observation/Transfer - Attestations Scribe Attestion: 02/23/17 07:47 Documentation prepared by Jihan Arteaga, acting as medical records library professor for Brody Montiel MD. <Jihan Arteaga - Last Filed: 02/23/17 07:44> <Brody Montiel - Last Filed: 02/23/17 14:25> Diagnosis at time of Disposition: Feeding tube dysfunction Qualifiers: Encounter type: initial encounter Qualified Code(s): T85.598A - Other mechanical complication of other gastrointestinal prosthetic devices, implants and grafts, initial encounter - Discharge Dispostion Disposition: HOME Condition at time of disposition: Improved - Patient Instructions Printed Discharge Instructions: How to Use Your Feeding Tube, How to Care for Your Child's Feeding Tube Additional Instructions: The feeding tube was replaced again today. Continue to use as previously instructed, keep out of reach and protected as much as possible. Return to the emergency department for any new or concerning symptoms, including dysfunction or displacement of the tube, abdominal pain, fevers or chills, vomiting.
[2017-02-23 15:15] VITALS: BP 146/89; PULSE 81
== END 2017-02-23 15:13 | disposition home or self-care (01) ==
LOC: JER 06:10
PROC: 0D20XUZ Change Feeding Device in Upper Intestinal Tract, External Approach (ICD-10-PCS; principal; 2017-02-23)
DX: T85.598A Other mechanical complication of other gastrointestinal prosthetic devices, implants and grafts, initial encounter (principal); G82.50 Quadriplegia, unspecified; G80.8 Other cerebral palsy; K21.9 Gastro-esophageal reflux disease without esophagitis; E05.80 Other thyrotoxicosis without thyrotoxic crisis or storm
CPT/HCPCS: 43760; 49452; 99282-25; C1769; C1887

== ENCOUNTER → 2017-03-03 | Emergency (ER) | payer OTHER ==
[2017-03-03 04:14] VITALS: BMI 20.2
--- NOTE | 2017-03-03 04:21 | PDOC ---
History of Present Illness - General Chief Complaint: G Tube Problem Stated Complaint: G-TUBE DISPLACEMENT Time Seen by Provider: 03/03/17 04:10 - History of Present Illness Initial Comments: 03/03/17 04:21 36 year old male with profound mental retardation, infantile cerebral palsy, Seizure , hyperthyroidism, scoliosis, b/l hip dislocation, severe GERD sent in for evaluation of G/JT. As per Nurse tube noted to be out and was pushed back in at the facility. patient was send for tube placement confirmation. as per nurse patient is in usual state of health denies fever, NVD, abdominal pain Past History - Past Medical History Allergies/Adverse Reactions: Allergies Allergy/AdvReac Type Severity Reaction Status Date / Time No Known Allergies Allergy Verified 03/03/17 04:13 Home Medications: Ambulatory Orders Acetaminophen [Tylenol -] 325 mg PO Q4H 03/03/17 Albuterol 0.083% Nebulizer Lupe [Ventolin 0.083%] 1 neb NEB Q4H 03/03/17 Ascorbate Calcium [Vitamin C] 500 mg PO BID 03/03/17 Atenolol [Tenormin] 25 mg PO DAILY 03/03/17 Baclofen 10 mg PO TID 03/03/17 Bisacodyl 10 mg RC TID 03/03/17 Calcium 250Mg/Vit-D 125 Units [Oscal 250 mg+D -] 500 tab PO TID 03/03/17 Clindamycin 1% Gel [Cleocin *Gel*] 1 applic TP DAILY 03/03/17 Esomeprazole Magnesium [Nexium] 40 mg PO DAILY 03/03/17 Ferrous Sulfate *Pediatric* [Willy-in-Lupe Drops *Pediatric* -] 15 mg PO DAILY 03/08 Gel Dressing [Solosite] 1 each TP PRN 03/03/17 Lactase [Lactaid] 3,000 unit PO TID 03/03/17 Lactobacillus Acidophilus [Acidophilus] 1 each PO BID 03/03/17 Multivit-Min/FA/Lycopen/Lutein [Vitrum 50+ Senior Tablet] 1 each PO DAILY Polyethylene Glycol 3350 [Miralax (For Daily Use) -] 17 gm PO DAILY 03/03/17 Potassium Chloride Oral Soln [KCl Oral Solution] 10 meq PO DAILY 03/03/17 Saliva Substitute Combo No.9 [Biotene] 1,000 ml MM BID 03/03/17 Simethicone 40 mg PO QID 03/03/17 Sodium Phosphate,Ransom-Dibasic [Enema Ready To Use] 133 ml RC PRN 03/03/17 Sulfacetamide Sodium/Sulfur [Sulfacetamide-Sulfur 10-2% Crm] 57 gm TP HS Talc/Cellulos/Chloroxy/Aldioxa [Zeasorb Powder] 71 gm TP DAILY 03/03/17 Tiagabine HCl [Gabitril] 4 mg PO TID 03/03/17 Tizanidine HCl 4 mg PO QID 03/03/17 Triamcinolone Acetonide [Nasacort] 10.8 mg IN DAILY 03/03/17 Anemia: No COPD: No DVT: No Dementia: Yes GI Disorders: Yes (GERD) Seizures: Yes Thyroid Disease: Yes - Surgical History Abdominal Surgery: Yes (feeding tube) - Immunization History Immunization Up to Date: Yes - Suicide/Smoking/Psychosocial Hx Smoking History: Never smoked Have you smoked in the past 12 months: No Hx Alcohol Use: No Drug/Substance Use Hx: No Substance Use Type: None Review of Systems - Review of Systems Able to Perform ROS?: Yes Is the patient limited Yemeni proficient: No ABD/GI: Yes: Other (GT evaluation) *Physical Exam - Vital Signs 03/03/17 04:24 Vital Signs Temp Pulse Resp BP Pulse Ox 98.7 F 88 14 141/85 97 03/03/17 04:13 03/03/17 04:13 03/03/17 04:13 03/03/17 04:13 03/03/17 04:13 - Physical Exam General Appearance: Yes: Appropriately Dressed, Other (+ EYE) Respiratory/Chest: positive: Lungs Clear, Normal Breath Sounds Gastrointestinal/Abdominal: positive: Normal Bowel Sounds, Distended, Other ( + erythema and irritation at the GT site. + granuloma at the site. ) Integumentary: positive: Normal Color, Dry, Warm Neurologic: positive: Alert Progress Note - Progress Note Progress Note: A: G/J tube replacement P: will place in ED obs. patient needs to have tube guided in with IR, Physician consult for Dr. Cueva pending. patient signed out to Maria L BYRD. *DC/Admit/Observation/Transfer Diagnosis at time of Disposition: Profound mental retardation Feeding tube dysfunction Qualifiers: Encounter type: initial encounter Qualified Code(s): T85.598A - Other mechanical complication of other gastrointestinal prosthetic devices, implants and grafts, initial encounter - Discharge Dispostion Condition at time of disposition: Good Admit: Yes - Referrals Referrals: Dae Gusman Jr [Primary Care Provider] - - Patient Instructions Printed Discharge Instructions: How to Care for Your PEG Tube Additional Instructions: Patient's x-rays show proper placement of the JG tube. At this time the G-tube portion of the tube should only be used as recommendations from Dr. Howard. I spoken to Dr. Ralph, surgeon in regards to the J-tube who recommends the patient have consultation with the surgeon at [facility]. I've also spoken to Dr. Howard interventional radiologist who feels patient would benefit from a J-tube. - Post Discharge Activity
--- NOTE | 2017-03-03 07:27 | PDOC ---
*Physical Exam - Vital Signs Last Vital Signs Temp Pulse Resp BP Pulse Ox 98.7 F 88 14 141/85 97 03/03/17 04:13 03/03/17 04:13 03/03/17 04:13 03/03/17 04:13 03/03/17 04:13 Medical Decision Making - Medical Decision Making 03/03/17 07:26 Pt here for G-JT replacement. Pt sent over from snf last night. Pt comfortable with staff at bedside. Pt awaiting Dr. Connolly, IR, for consultation. Pt placed in ED obs 03/03/17 08:40 Patient ordered for x-rays to visualize placement and rule out perforation. Gastrografin was administered via 60 mL syringe diluted with sterile water via JG tube 03/03/17 10:[address] Howard interventional radiologist who state JG tube has good placement within the stomach but is concerned with the left upper quadrant air and is recommending a KUB with patient lying on right side. He also states patient has had a JG tube placed 4 and at this time is recommending either a J-tube placement or use the present to as a G-tube only until physician has spoken with the mother. I put a consultation the computer for Dr. Ralph surgeon and presently trying to contact the medical provider at [facility]. 03/03/17 11:54 Message left for CARSON Roach at [facility] with full summary and recommendations. I will spoken to Dr. Ralph who states patient should return to [facility] and have one of the original surgeon stat was involved in his case discussed the J-tube placement. 03/03/17 13:21 X-rays repeated the patient side-lying on the left and then on the right to evaluate for free air. X-ray showed no gross free air. Patient be sent back to [facility] 03/03/17 13:39 Case discussed with medical imaging director Dr. Gusman was notified that patient is not a candidate for interventional radiology J G-tube placement and was recommended that patient would benefit from a J-tube which may be performed as an outpatient surgical procedure. Patient did tolerate 60 mL of sterile water mixed with Gastrografin via G-tube without difficulty prior to receiving the KUB. At this time Dr. Gusman was made aware that G-tube portion may be utilized and needs to follow proper precautions in regards to aspiration. *DC/Admit/Observation/Transfer Diagnosis at time of Disposition: Profound mental retardation Feeding tube dysfunction Qualifiers: Encounter type: initial encounter Qualified Code(s): T85.598A - Other mechanical complication of other gastrointestinal prosthetic devices, implants and grafts, initial encounter - Discharge Dispostion Disposition: HOME Condition at time of disposition: Good - Referrals Referrals: Dae Gusman Jr [Primary Care Provider] - - Patient Instructions Printed Discharge Instructions: How to Care for Your PEG Tube Additional Instructions: Patient's x-rays show proper placement of the JG tube. At this time the G-tube portion of the tube should only be used as recommendations from Dr. Howard. I spoken to Dr. Ralph, surgeon in regards to the J-tube who recommends the patient have consultation with the surgeon at [facility]. I've also spoken to Dr. Howard interventional radiologist who feels patient would benefit from a J-tube. - Post Discharge Activity
[2017-03-03 14:49] VITALS: BP 154/97; PULSE 100; TEMP 98
== END ==
LOC: JER 03:23
DX: T85.598A Other mechanical complication of other gastrointestinal prosthetic devices, implants and grafts, initial encounter (principal); F79 Unspecified intellectual disabilities; E05.90 Thyrotoxicosis, unspecified without thyrotoxic crisis or storm; K21.9 Gastro-esophageal reflux disease without esophagitis; M41.9 Scoliosis, unspecified
CPT/HCPCS: 74000-TC; 99283-25

== ENCOUNTER 2017-08-26 01:41 | Emergency (ER) | payer OTHER ==
--- NOTE | 2017-08-26 01:46 | PDOC ---
History of Present Illness - General Stated Complaint: LOW BLOOD PRESSURE Time Seen by Provider: 08/26/17 01:45 History Source: [facility] Past History - Past Medical History Allergies/Adverse Reactions: Allergies Allergy/AdvReac Type Severity Reaction Status Date / Time No Known Allergies Allergy Verified 08/26/17 04:46 Home Medications: Ambulatory Orders Acetaminophen [Tylenol -] 325 mg PO Q4H 03/03/17 Albuterol 0.083% Nebulizer Lupe [Ventolin 0.083%] 1 neb NEB Q4H 03/03/17 Ascorbate Calcium [Vitamin C] 500 mg PO BID 03/03/17 Atenolol [Tenormin] 25 mg PO DAILY 03/03/17 Baclofen 10 mg PO TID 03/03/17 Bisacodyl 10 mg RC TID 03/03/17 Calcium 250Mg/Vit-D 125 Units [Oscal 250 mg+D -] 500 tab PO TID 03/03/17 Clindamycin 1% Gel [Cleocin *Gel*] 1 applic TP DAILY 03/03/17 Esomeprazole Magnesium [Nexium] 40 mg PO DAILY 03/03/17 Ferrous Sulfate *Pediatric* [Willy-in-Lupe Drops *Pediatric* -] 15 mg PO DAILY 03/08 Gel Dressing [Solosite] 1 each TP PRN 03/03/17 Lactase [Lactaid] 3,000 unit PO TID 03/03/17 Lactobacillus Acidophilus [Acidophilus] 1 each PO BID 03/03/17 Multivit-Min/FA/Lycopen/Lutein [Vitrum 50+ Senior Tablet] 1 each PO DAILY Polyethylene Glycol 3350 [Miralax (For Daily Use) -] 17 gm PO DAILY 03/03/17 Potassium Chloride Oral Soln [KCl Oral Solution] 10 meq PO DAILY 03/03/17 Saliva Substitute Combo No.9 [Biotene] 1,000 ml MM BID 03/03/17 Simethicone 40 mg PO QID 03/03/17 Sodium Phosphate,Imperial-Dibasic [Enema Ready To Use] 133 ml RC PRN 03/03/17 Sulfacetamide Sodium/Sulfur [Sulfacetamide-Sulfur 10-2% Crm] 57 gm TP HS Talc/Cellulos/Chloroxy/Aldioxa [Zeasorb Powder] 71 gm TP DAILY 03/03/17 Tiagabine HCl [Gabitril] 4 mg PO TID 03/03/17 Tizanidine HCl 4 mg PO QID 03/03/17 Triamcinolone Acetonide [Nasacort] 10.8 mg IN DAILY 03/03/17 Anemia: No COPD: No DVT: No Dementia: Yes GI Disorders: Yes (GERD) Seizures: Yes Thyroid Disease: Yes - Surgical History Abdominal Surgery: Yes (feeding tube) - Immunization History Immunization Up to Date: Yes - Suicide/Smoking/Psychosocial Hx Smoking History: Never smoked Have you smoked in the past 12 months: No Hx Alcohol Use: No Drug/Substance Use Hx: No Substance Use Type: None Review of Systems - Review of Systems Able to Perform ROS?: No *Physical Exam - Physical Exam Comments: 08/26/17 01:59 Alert, contracted young male who appears mildly agitated in ER General Appearance: Yes: Appropriately Dressed Respiratory/Chest: positive: Lungs Clear, Normal Breath Sounds. negative: Respiratory Distress, Accessory Muscle Use Cardiovascular: positive: Regular Rate, S1, S2 Gastrointestinal/Abdominal: positive: Normal Bowel Sounds, Soft, Other (Gtube in place w/ green colored fluid in bag) Integumentary: positive: Dry, Warm Neurologic: positive: Alert ED Treatment Course - LABORATORY CBC & Chemistry Diagram: 08/26/17 03:28 08/26/17 02:35 Medical Decision Making - Medical Decision Making 08/26/17 01:45 37 yo M, h/o profound mental retardation, infantile cerebral palsy, seizure , hyperthyroidism, scoliosis, b/l hip dislocation, severe GERD, G-tube, sent in from [place] for evaluation after found to be hypoxic in the high 80s tonight. Per EMS, at scene, pt was sating 94% on room air on their assessment, but found to have cold extremities with difficulty obtaining a blood pressure in the field. No vomiting or fever reported at [facility] See exam Transient hypoxia at [facility] tonight Pt unable to give hx 2/2 severe MR but alert and appears somewhat agitated in ER Pt sating 97% here on RA w/ rest of Vss -cxr -labs -manzano-cx -IVF -dispo pending 08/26/17 03:13 Pt very difficult stick w/ multiple attempts by several ED staff including multiple nurses. US guided EJ attempted by myself and Dr Oh w/ no success. Will continue to attempt to obtain blood and m/l place IO for IVF 08/26/17 05:27 Labs, ua and CXR unremarkable. Rpt BP 90/58. IVF in progress via RLE IO. Will reassess 08/26/17 06:37 On 2nd 500cc IVF, BP 110/89. Will arrange transport back to [facility] at this time *DC/Admit/Observation/Transfer Diagnosis at time of Disposition: Hypoxemia, Dehydration Hypotension Qualifiers: Hypotension type: unspecified hypotension type Qualified Code(s): I95.9 - Hypotension, unspecified - Discharge Dispostion Disposition: HOME Condition at time of disposition: Improved - Referrals - Patient Instructions Additional Instructions: [facility]. Patient's sats have been 97% on room air in ED BP initially found to be 90s over 70s that improved to 110/89 with IV fluids. Labs, UA and chest x-ray were all unremarkable. Patient's hypotension could possibly be secondary to dehydration. Continue to maintain adequate hydration and have patient return for worsening of symptoms, otherwise follow-up with his project technician - Post Discharge Activity
[2017-08-26] MEDS ORDERED: SODIUM CHLORIDE 500 ML IV STA ×2 (01:55→05:31)
[2017-08-26 02:38] VITALS: BMI 17.8
[2017-08-26 03:07] LABS: ALBUMIN 3.2 g/dl (3.4-5.0); ANION GAP 7 (8-16); BILIRUBIN,TOTAL 0.3 mg/dL (0.2-1.0); BLOOD UREA NITROGEN 40 mg/dL (7-18); CALCIUM 9.4 mg/dL (8.5-10.1); CHLORIDE 93 mmol/L (98-107); CO2 37 mmol/L (21-32); CREATININE 1.3 mg/dL (0.7-1.3); GLUCOSE,RANDOM 101 mg/dL (74-106); LIPASE 144 U/L (73-393); POTASSIUM 4.6 mmol/L (3.5-5.1); SGOT/AST 48 U/L (15-37); SGPT/ALT 101 U/L (12-78); SODIUM 137 mmol/L (136-145); TOT PROT 8.8 g/dl (6.4-8.2)
[2017-08-26 03:08] LABS: ALK PHOS 96 U/L (45-117)
[2017-08-26 03:37] LABS: BASO % 1.3 % (0-2.0); EOS % 2.5 % (0-4.5); HEMATOCRIT 33.4 % (35.4-49); HEMOGLOBIN 11.1 GM/dL (11.7-16.9); LYMPH % 14.8 % (8-40); MCH 23.6 pg (25.7-33.7); MCHC 33.1 g/dl (32.0-35.9); MEAN CELL VOLUME 71.3 fl (80-96); MONO % 6.4 % (3.8-10.2); RBC 4.69 M/mm3 (4.00-5.60); RDW 16.2 % (11.9-15.9)
[2017-08-26 04:09] LABS: PLATELET ESTIMATE ADEQUATE
[2017-08-26 04:15] LABS: URINE APPEARANCE CLOUDY; URINE BILIRUBIN NEGATIVE (<2.0 mg/dL); URINE BLOOD NEGATIVE (NEGATIVE); URINE COLOR YELLOW; URINE GLUCOSE (UA) NEGATIVE (NEGATIVE); URINE KETONE NEGATIVE (NEGATIVE); URINE NITRITE NEGATIVE (NEGATIVE); URINE UROBILINOGEN NEGATIVE mg/dL (0.2-1.0)
[2017-08-26 04:16] LABS: URINE LEUK ESTERASE 2+ (NEGATIVE); URINE PROTEIN 1+ (NEGATIVE)
[2017-08-26 04:18] LABS: EPI CELLS MODERATE /HPF (FEW); URINE BACTERIA RARE /hpf (NONE SEEN); URINE HYALINE CAST 4 /lpf; URINE MUCUS RARE
[2017-08-26 04:44] VITALS: PULSE 89
[2017-08-26 06:36] VITALS: TEMP 97.9
[2017-08-26 06:42] VITALS: BP 107/80
== END 2017-08-26 07:00 | disposition home or self-care (01) ==
LOC: JER 01:41
PROC: 3E0337Z Introduction of Electrolytic and Water Balance Substance into Peripheral Vein, Percutaneous Approach (ICD-10-PCS; principal; 2017-08-26)
DX: R09.02 Hypoxemia (principal); E86.0 Dehydration; I95.9 Hypotension, unspecified; F03.90 Unspecified dementia, unspecified severity, without behavioral disturbance, psychotic disturbance, mood disturbance, and anxiety; K21.9 Gastro-esophageal reflux disease without esophagitis; E07.9 Disorder of thyroid, unspecified
CPT/HCPCS: 36415; 71045-TC-FY; 80053; 81003; 81015; 83690; 85025; 96360; 96361; 99282-25

== ENCOUNTER 2017-10-15 16:35 | Inpatient (IN) | payer OTHER ==
--- NOTE | 2017-10-15 16:51 | PDOC ---
History of Present Illness - General Chief Complaint: Shortness of Breath Stated Complaint: Respiratory Time Seen by Provider: 10/15/17 16:43 - History of Present Illness Initial Comments: 10/15/17 16:50 The patient is a 37-year-old male, [facility] resident, with a significant past medical history of congenital quadriplegia, general convulsive epilepsy, profound MR, nonverbal severe mental deficits, who presents to the emergency department with upper respiratory difficulties, SOB, and difficulty breathing. This is reported by the aid from the custodial accompanying him. 10/15/17 17:19 Past History - Past Medical History Allergies/Adverse Reactions: Allergies Allergy/AdvReac Type Severity Reaction Status Date / Time piperacillin [From Zosyn] Allergy Verified 10/15/17 21:56 tazobactam [From Zosyn] Allergy Verified 10/15/17 21:56 Home Medications: Ambulatory Orders Atenolol [Tenormin] 25 mg PO DAILY 03/03/17 Baclofen 10 mg PO TID 03/03/17 Bisacodyl 10 mg RC TID 03/03/17 Clindamycin 1% Gel [Cleocin *Gel*] 1 applic TP DAILY 03/03/17 Lactobacillus Acidophilus [Acidophilus] 1 each PO BID 03/03/17 Potassium Chloride Oral Soln [KCl Oral Solution] 10 meq PO DAILY 03/03/17 Simethicone 40 mg PO QID 03/03/17 Tiagabine HCl [Gabitril] 4 mg PO TID 03/03/17 Tizanidine HCl 4 mg PO QID 03/03/17 Bacitracin - [Bacitracin Topical Ointment -] 1 applic TP BID 10/16/17 Calcium Carbonate/Vitamin D3 [Oyster Shell 500-Vit D3 200 Tb] 1 each PO TID Clindamycin Topical Solution [Cleocin 1% Topical Solution -] 1 applic TP DAILY 10/16/17 Clotrimazole 1 applic TP TID 10/16/17 Ferrous Sulfate 220 mg PO DAILY 10/16/17 Fluticasone Prop 0.05% Nasal [Flonase -] 1 - 2 spray NS DAILY 10/16/17 Metoclopramide Oral Soln [Reglan *Liquid*] 10 mg PO BID 10/16/17 Multivit-Minerals/Ferrous Fum [Multivitamin Liquid] 30 ml PO DAILY 10/16/17 Nystatin Powder [Nystop Powder -] 1 applic TP TID 10/16/17 Zinc Gluconate [Zinc] 100 mg PO DAILY 10/16/17 Zinc Oxide 20% Topical Oint 1 applic TP BID 10/16/17 Anemia: No COPD: No DVT: No Dementia: Yes GI Disorders: Yes (GERD) Seizures: Yes Thyroid Disease: Yes Other medical history: mental retardation - Surgical History Abdominal Surgery: Yes (feeding tube) - Immunization History Immunization Up to Date: Yes - Suicide/Smoking/Psychosocial Hx Smoking History: Never smoked Have you smoked in the past 12 months: No Hx Alcohol Use: No Drug/Substance Use Hx: No Substance Use Type: None Review of Systems - Review of Systems Able to Perform ROS?: No (Patient is non-verbal) *Physical Exam - Vital Signs Last Vital Signs Temp Pulse Resp BP Pulse Ox 120 H 32 H 137/92 100 10/15/17 16:46 10/15/17 16:46 10/15/17 16:46 10/15/17 16:46 - Physical Exam Comments: 10/15/17 17:20 GENERAL: Patient is not well developed. He is Awake and alert and periodically smiles. He is drooling and breathing very quickly. HEENT: Normocephalic, atraumatic. No conjunctival pallor. Sclera are non-icteric. Patient is drooling significantly. Moist mucous membranes. Oropharynx is clear. NECK: No JVD. Carotid pulses 2+ and symmetric, without bruits. No thyromegaly. No lymphadenopathy. CARDIOVASCULAR: Patient is tachycardic. Regular rhythm. Distal pulses are 2+ and symmetric. PULMONARY: Clear evidence of respiratory distress. Patient is tachypnic There are crackles on the left and diffuse wheezing. No rales or rhonchi. ABDOMINAL: Patient has a leaking colostomy bag. Abdomen is Soft. No rebound or guarding. No organomegaly. Normoactive bowel sounds. MUSCULOSKELETAL Patient is quadriplegic with multiple bony deformities. EXTREMITIES: No cyanosis. No clubbing. No edema. SKIN: Hot and dry. Normal capillary refill. No rashes. No jaundice. PSYCHIATRIC: Cooperative. Good eye contact. Appropriate mood and affect. ED Treatment Course - LABORATORY CBC & Chemistry Diagram: 10/17/17 07:20 10/17/17 07:20 Medical Decision Making - Medical Decision Making 10/15/17 17:27 The patient is a 37-year-old male, [place] resident, with a significant past medical history of congenital quadriplegia, general convulsive epilepsy, profound MR, nonverbal severe mental deficits, who presents to the emergency department with upper respiratory difficulties, SOB, and difficulty breathing. Patients vitals are worrisome for sepsis. Plan: full septic workup, fluids, antipyretic, bloodwork, urine, ekg, imaging, re-assess. Having significant difficulty obtaining blood. There is a small 24 gauge line in and giving Abx. Signing out patient. 10/15/17 20:37 *DC/Admit/Observation/Transfer Diagnosis at time of Disposition: Sepsis, Shortness of breath Pneumonia Qualifiers: Aspiration pneumonia type: unspecified Laterality: unspecified laterality Lung location: unspecified part of lung - Discharge Dispostion Decision to Admit order: Yes - Referrals - Patient Instructions - Post Discharge Activity
[2017-10-15] MEDS ORDERED: ACETAMINOPHEN 1000 MG/100 ML VIAL (NON FORMULARY) IVPB ONE (17:17)
[2017-10-15] MEDS ORDERED: SODIUM CHLORIDE 0.9% 500 ML INFUS.BAG IV ONE (17:17)
[2017-10-15] MEDS ORDERED: ALBUTEROL SO4 2.5/IPRATROPIUM 0.5 INH SOL 3 ML VIAL.NEB. NEB ONE (17:26)
--- NOTE | 2017-10-15 19:29 | PDOC ---
Attending Attestation - Resident Resident Name: Av Luo - ED Attending Attestation I have performed the following: I have examined & evaluated the patient, The case was reviewed & discussed with the resident, I agree w/resident's findings & plan, Exceptions are as noted - HPI HPI: 10/15/17 19:19 "The patient is a 37 year old male from [facility], accompanied by aid, with a significant PMH of profound mental retardation, infantile cerebral palsy, seizure, hyperthyroidism, scoliosis, b/l hip dislocation, severe GERD, G- tube, who presents to the emergency department with increased secretions, fevers , and shortness of breath. The patients history is limited secondary to mental status. Allergies: NKA " - Physicial Exam PE: 10/15/17 19:20 "GENERAL: Awake, alert, and appropriately interactive EYES: PERRLA, clear conjunctiva NOSE: Nose is clear without discharge EARS: EACs and TMs are normal THROAT: Moist mucosa, oropharynx is clear without erythema or exudates, NECK: Supple, no adenopathy, no meningismus CHEST: + Diffuse coarse breath sounds, no wheezing HEART: Regular rhythm, normal S1 and S2, no murmurs ABDOMEN: Soft and nontender with normal bowel sounds, no organomegaly, no mass, no rebound, no guarding EXTREMITIES: Normal NEURO: normal cranial nerves, bilateral upper and lower extremity contractures SKIN: Unremarkable, no rash, no swelling, no bruising, no signs of injury " - Medical Decision Making 10/15/17 19:20 37 M presenting with fever, tachycardia, and increased secretions and SOB. Concerning for PNA. - Labs, cultures - CXR, UA - IVF, tylenol - Abx - Admit
[2017-10-15] MEDS ORDERED: VANCOMYCIN 1,000 MG in DEXTROSE 5%-WATER - 250 ML IVPB ONE (19:30)
[2017-10-15] MEDS ORDERED: PIPERACILLIN/TAZOB 3.375 GM 3.375 GM in DEXTROSE 5%-WATER - 50 ML IVPB ONE (19:32)
[2017-10-15] MEDS ORDERED: ACETAMINOPHEN INJECTION 100 ML IVPB ONE (19:38)
[2017-10-15] MEDS ORDERED: PIPERACILLIN/TAZOB 3.375 GM 3.375 GM/50 ML BAG IVPB ONE (20:48)
[2017-10-15] MEDS ORDERED: LORazepam 2 MG/ML SDV VIAL ONE (21:18)
--- NOTE | 2017-10-15 21:18 | PDOC ---
*Physical Exam - Vital Signs Last Vital Signs Temp Pulse Resp BP Pulse Ox 100.3 F H 130 H 32 H 137/92 98 10/15/17 17:00 10/15/17 19:25 10/15/17 16:46 10/15/17 16:46 10/15/17 19:25 - Physical Exam Comments: 10/15/17 21:23 GENERAL: Awake, alert, non verbal, non communicative, but tracking across midline. HEAD: No signs of trauma, normocephalic, atraumatic EYES: PERRLA, EOMI, sclera anicteric, conjunctiva clear ENT: Auricles normal inspection, hearing grossly normal, nares patent, oropharynx clear without exudates. Moist mucosa NECK: Normal ROM, supple, no lymphadenopathy, JVD, or masses LUNGS: Coarse diffuse lung sounds. HEART: Regular rate and rhythm, normal S1 and S2, no murmurs, rubs or gallops, peripheral pulses normal and equal bilaterally. ABDOMEN: Soft, nontender, normoactive bowel sounds. EXTREMITIES : Normal inspection, Normal range of motion, no edema. No clubbing or cyanosis. SKIN: Warm, Dry, normal turgor, no rashes or lesions noted ED Treatment Course - LABORATORY CBC & Chemistry Diagram: 10/15/17 22:42 10/15/17 22:42 - Medications Given in the ED: ED Medications Discontinued Medications Generic Name Dose Route Start Last Admin Trade Name Jeferson PRN Reason Stop Dose Admin Acetaminophen 1,000 mg 10/15/17 17:17 10/15/17 19:39 Ofirmev Injection - IVPB 10/15/17 17:18 1,000 mg ONCE ONE Administration Albuterol/Ipratropium 1 amp 10/15/17 17:26 10/15/17 19:39 Duoneb - NEB 10/15/17 17:27 1 amp ONCE ONE Administration Diphenhydramine HCl 25 mg 10/15/17 21:06 10/15/17 21:11 Benadryl Injection - IVPB 10/15/17 21:07 25 mg ONCE ONE Administration Piperacillin Sod/Tazobactam 50 mls @ 100 mls/hr 10/15/17 19:32 10/15/17 20:55 Sod 3.375 gm/ Dextrose IVPB 10/15/17 20:01 100 mls/hr ONCE ONE Administration Protocol Sodium Chloride 1,000 ml 10/15/17 17:17 10/15/17 19:38 Normal Saline - IV 10/15/17 17:18 1,000 ml ONCE ONE Administration Medical Decision Making - Medical Decision Making 10/15/17 21:13 37 yo M BIBA from [facility] with h/o profound MR, non verbal, non communicative at baseline, infantile cerebral palsy, seizure, hyperthyroidism, scoliosis, b/l hip dislocation, GERD, G-tube placement, accompanied by aid, BIBA with increased oral secretions, shortness of breath, and fever. 3/4 SIRS criteria HR 130, RR 32, Temp 100.3. suspect respiratory source, possible PNA vs. reactive airway disease. Will assess for electrolyte abnml, metabolic and toxic derangements, acid base disturbances, and infections. ED Course: 10/15/17 21:25 NS 10/15/17 23:58 Vanc, zosyn Patient with acute allergic reaction following zosyn. Given Diphenhydramine Patient with tonic convulsions. Given Ativan 1 mg. WBC: 14.3 BUN/Cr: 45/0.9 Patient admited to med surg [facility] *DC/Admit/Observation/Transfer Diagnosis at time of Disposition: Sepsis, Shortness of breath Pneumonia Qualifiers: Aspiration pneumonia type: unspecified Laterality: unspecified laterality Lung location: unspecified part of lung - Referrals - Patient Instructions - Post Discharge Activity
[2017-10-15 22:56] LABS: BASO % 0.3 % (0-2.0); EOS % 0.4 % (0-4.5); HEMATOCRIT 36.7 % (35.4-49); HEMOGLOBIN 11.8 GM/dL (11.7-16.9); LYMPH % 8.4 % (8-40); MCH 23.6 pg (25.7-33.7); MCHC 32.2 g/dl (32.0-35.9); MEAN CELL VOLUME 73.2 fl (80-96); MEAN PLT VOLUME 7.7 fl (7.5-11.1); MONO % 5.2 % (3.8-10.2); NEUT % 85.7 % (42.8-82.8); PLATELET COUNT 400 K/MM3 (134-434); RBC 5.02 M/mm3 (4.00-5.60); RDW 17.2 % (11.9-15.9); WHITE BLOOD COUNT 14.3 K/mm3 (4.0-10.0)
[2017-10-15 23:27] LABS: ALBUMIN 3.9 g/dl (3.4-5.0); ALK PHOS 82 U/L (45-117); ANION GAP 7 (8-16); BILIRUBIN,TOTAL 0.6 mg/dL (0.2-1.0); BLOOD UREA NITROGEN 45 mg/dL (7-18); CALCIUM 9.9 mg/dL (8.5-10.1); CHLORIDE 98 mmol/L (98-107); CO2 36 mmol/L (21-32); CREATININE 0.9 mg/dL (0.7-1.3); GLUCOSE,RANDOM 114 mg/dL (74-106); POTASSIUM 3.7 mmol/L (3.5-5.1); SGOT/AST 21 U/L (15-37); SGPT/ALT 27 U/L (12-78); SODIUM 141 mmol/L (136-145); TOT PROT 8.8 g/dl (6.4-8.2)
[2017-10-16] MEDS ORDERED: VANCOMYCIN 1 GRAM (PRE-DOCKED) 1,000 MG/250 ML BAG IVPB ONE (00:02)
[2017-10-16] MEDS ORDERED: SODIUM CHLORIDE 1,000 ML IV SCH ×2 (02:00→03:02)
[2017-10-16] MEDS ORDERED: ACETAMINOPHEN 650 MG/20.3 ML ORAL SOLUTION (CUPS) PO PRN (02:07)
[2017-10-16] MEDS ORDERED: [UNRECOGNIZED DRUG - OTHER] TP SCH (02:15)
[2017-10-16] MEDS ORDERED: SODIUM PHOSPHATE/NA BIPHOS 133 ML ENEMA RC SCH (02:15)
--- NOTE | 2017-10-16 02:57 | HP ---
CHIEF COMPLAINT: PCP: HISTORY OF PRESENT ILLNESS: Pt is non verbal w/ MR from [place]. Hx obtained from EMR 37 yo M BIBA from [facility] with h/o profound MR, non verbal, non communicative at baseline, congenital quadriplegia, infantile cerebral palsy, seizure, hyperthyroidism, scoliosis, b/l hip dislocation, GERD, G/j-tube placement, and multpile admissions for pneumonia accompanied by aid, BIBA with increased oral secretions, SOB, and found to be hypoxic in 80s w/ fever of 101F and tachy. ER course was notable for: (1) 3/4 SIRS criteria HR 130, RR 32, Temp 100.3. suspect respiratory source, possible PNA vs. reactive airway disease. The patients history is limited secondary to mental status. (2)Hypoxia was corrected to 98%w/ NRB 15L O2, tylenol, duonebs and sepsis w/u initiated. (3)Was given vanc zosyn. After giving zosyn was noted to have allergic rexn, broke out in hives and rashes. ctl w/ benadryl. Also noted to have a seizure which was ct w/ Ativan 1mg Difficulty obtaining labs, pt is a hard stick. resorted to femoral line Recent Travel: PAST MEDICAL HISTORY: see above PAST SURGICAL HISTORY: g/j-tube Social History: Smoking: na Alcohol:na Drugs: na Family History: Allergies piperacillin [From Zosyn] Allergy (Verified 10/15/17 21:56) tazobactam [From Zosyn] Allergy (Verified 10/15/17 21:56) HOME MEDICATIONS: Home Medications Medication Instructions Recorded Acetaminophen [Tylenol -] 325 mg PO Q4H 03/03/17 Albuterol 0.083% Nebulizer Lupe 1 neb NEB Q4H 03/03/17 [Ventolin 0.083%] Ascorbate Calcium [Vitamin C] 500 mg PO BID 03/03/17 Atenolol [Tenormin] 25 mg PO DAILY 03/03/17 Baclofen 10 mg PO TID 03/03/17 Bisacodyl 10 mg RC TID 03/03/17 Calcium 250Mg/Vit-D 125 Units 500 tab PO TID 03/03/17 [Oscal 250 mg+D -] Clindamycin 1% Gel [Cleocin *Gel*] 1 applic TP DAILY 03/03/17 Esomeprazole Magnesium [Nexium] 40 mg PO DAILY 03/03/17 Ferrous Sulfate *Pediatric* 15 mg PO DAILY 03/03/17 [Willy-in-Lupe Drops *Pediatric* -] Gel Dressing [Solosite] 1 each TP PRN 03/03/17 Lactase [Lactaid] 3,000 unit PO TID 03/03/17 Lactobacillus Acidophilus 1 each PO BID 03/03/17 [Acidophilus] Multivit-Min/FA/Lycopen/Lutein 1 each PO DAILY 03/03/17 [Vitrum 50+ Senior Tablet] Polyethylene Glycol 3350 [Miralax 17 gm PO DAILY 03/03/17 (For Daily Use) -] Potassium Chloride Oral Soln [KCl 10 meq PO DAILY 03/03/17 Oral Solution] Saliva Substitute Combo No.9 1,000 ml MM BID 03/03/17 [Biotene] Simethicone 40 mg PO QID 03/03/17 Sodium Phosphate,Harney-Dibasic 133 ml RC PRN 03/03/17 [Enema Ready To Use] Sulfacetamide Sodium/Sulfur 57 gm TP HS 03/03/17 [Sulfacetamide-Sulfur 10-2% Crm] Talc/Cellulos/Chloroxy/Aldioxa 71 gm TP DAILY 03/03/17 [Zeasorb Powder] Tiagabine HCl [Gabitril] 4 mg PO TID 03/03/17 Tizanidine HCl 4 mg PO QID 03/03/17 Triamcinolone Acetonide [Nasacort] 10.8 mg IN DAILY 03/03/17 REVIEW OF SYSTEMS unable to obtain PHYSICAL EXAMINATION Vital Signs - 24 hr 10/15/17 10/15/17 10/15/17 16:46 17:00 19:25 Temperature 100.3 F H Pulse Rate 120 H 130 H Respiratory 32 H Rate Blood Pressure 137/92 O2 Sat by Pulse 100 98 Oximetry (%) 10/15/17 10/15/17 20:00 22:00 Temperature Pulse Rate 130 H Respiratory 32 H 18 Rate Blood Pressure O2 Sat by Pulse 98 98 Oximetry (%) GENERAL: Awake, alert, in no acute distress. nonverbal, contracted, tracks w/ eyes. on NRB 15LO2 HEAD: Normal with no signs of trauma. EYES: PERRLA, sclera anicteric, conjunctiva clear. No lid lag. EARS, NOSE, THROAT: nares patent LUNGS: difficult exam, CTAB HEART: RRR, normal S1 and S2 without murmur, rub or gallop. ABDOMEN: Soft, ND NT +BS G-tube and colostomy bag intact, no guarding, no rebound, no masses. No hepatomegaly or splenomegaly. MUSCULOSKELETAL: contracted b/l. UPPER EXTREMITIES: 2+ pulses, warm, well-perfused. No cyanosis. No clubbing. No peripheral edema. LOWER EXTREMITIES: 2+ pulses, warm, well-perfused. No calf tenderness. No peripheral edema. NEUROLOGICAL: responds to stimulus SKIN: Warm, dry, normal turgor, no rashes or lesions noted, normal capillary refill. Laboratory Results - last 24 hr 10/15/17 10/15/17 22:42 22:42 WBC 14.3 H RBC 5.02 Hgb 11.8 Hct 36.7 MCV 73.2 L MCH 23.6 L MCHC 32.2 RDW 17.2 H Plt Count 400 MPV 7.7 Absolute Neuts (auto) 12.2 Neutrophils % 85.7 H Lymphocytes % 8.4 D Monocytes % 5.2 Eosinophils % 0.4 D Basophils % 0.3 Nucleated RBC % 0 Sodium 141 Potassium 3.7 Chloride 98 Carbon Dioxide 36 H Anion Gap 7 L BUN 45 H Creatinine 0.9 Creat Clearance w eGFR > 60 Random Glucose 114 H Calcium 9.9 Total Bilirubin 0.6 AST 21 D ALT 27 D Alkaline Phosphatase 82 Total Protein 8.8 H Albumin 3.9 ASSESSMENT/PLAN: 37 yo M BIBA from [facility] with h/o profound MR, non verbal, non communicative at baseline, congenital quadriplegia, infantile cerebral palsy, seizure, hyperthyroidism, scoliosis, b/l hip dislocation, GERD, G/j-tube placement, and multpile admissions for pneumonia accompanied by aid, BIBA with increased oral secretions, SOB, and found to be hypoxic in 80s w/ fever of 101F and tachy. acute hypoxic RF 2/2 sepsis 2/2 HCAP - at risk for aspiration PNA. + leukocytosis. CXR showed no gross infiltrates. BPs have been stable 137/92. Hypoxia corrected w/ NRB 15L O2. In ED received vanc zosyn. Although noted to have allergic rexn w/ zosyn. -tx w / vanc and meropenem 1g q8h to cover for MRSA, pseudo, and anaerobes. -monitor for any adverse rexn w/ meropenem -consult ID. -c/w IV NS 75cc/hr. -f/u bcx, ucx -NRB 15L O2, monitor sats and wean off YOVANI - likely prerenal -c/w IV NS 75cc/hr. -monitor bmp j/g tube, colostomy bag -maintain care -peg feeds HCM -c/w home dose meds for seizure, hyperthyroidism, gerd, HTN #FEN -IV NS 75cc/hr -replete lytes as needed -Peg feeds #DVTppx SQH 5000u tid #Dispo -admit to medsurg -Full code case discussed with attending, Dr. Ki Vargas MD PGY1 Visit type - Emergency Visit Emergency Visit: Yes ED Registration Date: 10/15/17 Care time: The patient presented to the Emergency Department on the above date and was hospitalized for further evaluation of their emergent condition. - New Patient This patient is new to me today: Yes Date on this admission: 10/16/17 - Critical Care Critical Care patient: No Hospitalist Screening - Colonoscopy Questionnaire Colonoscopy Questionnaire: Colonoscopy Questionnaire - Patient: 50 - 75 years old and never had a screening colonoscopy: Unknown History of colon or rectal polyps, or CA: Unknown History of IBD, Crohn's disease or UC: Unknown History of abdominal radiation therapy as a child: Unknown - Relative: 1 with colon or rectal CA, or polyps at age 60 or younger: Unknown Colon or rectal CA diagnosed at age 45 or younger: Unknown Multiple relatives with colon or rectal CA: Unknown - Outcome: Screening Result: Negative Screen
[2017-10-16] MEDS: ALBUTEROL SO4 0.083% IH SOL 2.5 MG/3 ML VIAL.NEB. NEB SCH ×6 (03:27→21:36)
[2017-10-16] MEDS ORDERED: MEROPENEM 1 GM in DEXTROSE 5%-WATER 100 ML IVPB SCH (04:00)
--- NOTE | 2017-10-16 05:31 | PN ---
Teaching Attending Note Name of Resident: Papi Vargas ATTENDING PHYSICIAN STATEMENT I saw and evaluated the patient. I reviewed the resident's note and discussed the case with the resident. I agree with the resident's findings and plan as documented. SUBJECTIVE: 37 y/o Michel resident brought for SOB and evaluation of possible pneumonia. No fevers reported. OBJECTIVE: GEN: Nonverbal, quadraplegic HEENT: NC, PERRLA, MMM CVS: tachycadia Abd: left peg tube, RLQ colostomy bag, Ext: poor tone, atrophy, 2+pulse no edema. Neuro: severe MR CBCD WBC 14.3 K/mm3 (4.0-10.0) H 10/15/17 22:42 RBC 5.02 M/mm3 (4.00-5.60) 10/15/17 22:42 Hgb 11.8 GM/dL (11.7-16.9) 10/15/17 22:42 Hct 36.7 % (35.4-49) 10/15/17 22:42 MCV 73.2 fl (80-96) L 10/15/17 22:42 MCHC 32.2 g/dl (32.0-35.9) 10/15/17 22:42 RDW 17.2 % (11.9-15.9) H 10/15/17 22:42 Plt Count 400 K/MM3 (134-434) 10/15/17 22:42 MPV 7.7 fl (7.5-11.1) 10/15/17 22:42 CMP Sodium 141 mmol/L (136-145) 10/15/17 22:42 Potassium 3.7 mmol/L (3.5-5.1) 10/15/17 22:42 Chloride 98 mmol/L (98-107) 10/15/17 22:42 Carbon Dioxide 36 mmol/L (21-32) H 10/15/17 22:42 Anion Gap 7 (8-16) L 10/15/17 22:42 BUN 45 mg/dL (7-18) H 10/15/17 22:42 Creatinine 0.9 mg/dL (0.7-1.3) 10/15/17 22:42 Creat Clearance w eGFR > 60 (>60) 10/15/17 22:42 Random Glucose 114 mg/dL (74-106) H 10/15/17 22:42 Calcium 9.9 mg/dL (8.5-10.1) 10/15/17 22:42 Total Bilirubin 0.6 mg/dL (0.2-1.0) 10/15/17 22:42 AST 21 U/L (15-37) D 10/15/17 22:42 ALT 27 U/L (12-78) D 10/15/17 22:42 Alkaline Phosphatase 82 U/L (45-117) 10/15/17 22:42 Total Protein 8.8 g/dl (6.4-8.2) H 10/15/17 22:42 Albumin 3.9 g/dl (3.4-5.0) 10/15/17 22:42 CARDIAC ENZYMES Troponin I < 0.02 ng/ml (0.00-0.05) 10/15/17 22:42 ASSESSMENT AND PLAN: Sepsis secondary to pneumonia IVF Meropenem and Vancomycin tylenol prn Follow cultures Continue home medications.
[2017-10-16] MEDS ORDERED: TIAGABINE HCL 4 MG PO SCH (06:00)
[2017-10-16] MEDS ORDERED: LACTASE 3000 UNIT PO SCH (06:00)
[2017-10-16] MEDS ORDERED: CALCIUM 250MG/VIT-D 125 UNITS 1 COMBO TABLET PO SCH ×2 (06:00→14:00)
[2017-10-16 06:54] LABS: URINE APPEARANCE CLEAR; URINE BILIRUBIN NEGATIVE (<2.0 mg/dL); URINE COLOR DKYELLOW; URINE GLUCOSE (UA) NEGATIVE (NEGATIVE); URINE KETONE NEGATIVE (NEGATIVE); URINE LEUK ESTERASE NEGATIVE (NEGATIVE); URINE NITRITE NEGATIVE (NEGATIVE); URINE UROBILINOGEN NEGATIVE mg/dL (0.2-1.0)
[2017-10-16 06:57] LABS: URINE PROTEIN 1+ (NEGATIVE)
[2017-10-16 07:03] LABS: URINE MUCUS RARE
[2017-10-16 07:11] LABS: ALBUMIN 3.6 g/dl (3.4-5.0); ANION GAP 8 (8-16); BLOOD UREA NITROGEN 45 mg/dL (7-18); CALCIUM 9.4 mg/dL (8.5-10.1); CHLORIDE 99 mmol/L (98-107); CO2 32 mmol/L (21-32); GLUCOSE,RANDOM 111 mg/dL (74-106); PHOSPHOROUS 3.5 mg/dL (2.5-4.9); SODIUM 139 mmol/L (136-145)
[2017-10-16 07:14] LABS: ALK PHOS 77 U/L (45-117); BILIRUBIN,TOTAL 0.7 mg/dL (0.2-1.0); CREATININE 0.6 mg/dL (0.7-1.3); SGPT/ALT 27 U/L (12-78); TOT PROT 8.4 g/dl (6.4-8.2)
[2017-10-16 07:21] LABS: MAGNESIUM 2.5 mg/dL (1.8-2.4); POTASSIUM 3.9 mmol/L (3.5-5.1); SGOT/AST 28 U/L (15-37)
[2017-10-16] MEDS: BACLOFEN 10 MG TABLET (FP) PO SCH ×3 (08:11→21:19)
[2017-10-16] MEDS: BISACODYL 10 MG SUPP.RECT RC SCH ×3 (08:11→21:21)
[2017-10-16] MEDS: HEPARIN NA (PORCINE) 5,000 UNITS/ML 1ML VIAL SQ SCH ×3 (08:11→21:29)
[2017-10-16] MEDS ORDERED: ALBUTEROL SO4 0.083% IH SOL 2.5 MG/3 ML VIAL.NEB. NEB ONE (08:13)
[2017-10-16 08:25] LABS: BASO % 0.6 % (0-2.0); EOS % 1.8 % (0-4.5); HEMATOCRIT 33.8 % (35.4-49); HEMOGLOBIN 11.2 GM/dL (11.7-16.9); MCHC 33.1 g/dl (32.0-35.9); MEAN CELL VOLUME 72.7 fl (80-96); MEAN PLT VOLUME 8.3 fl (7.5-11.1); MONO % 7.1 % (3.8-10.2); NEUT % 73.5 % (42.8-82.8); PLATELET COUNT 336 K/MM3 (134-434); RBC 4.65 M/mm3 (4.00-5.60); RDW 17.1 % (11.9-15.9); WHITE BLOOD COUNT 10.3 K/mm3 (4.0-10.0)
--- NOTE | 2017-10-16 08:45 | PN ---
Physical Exam: SUBJECTIVE: Patient is a 37 y/o male from [place] with a history of MR, congenital quadriplegia, infantile cerebral palsy, seizure, hyperthyroidism, scoliosis, GERD, and multiple pneumonias who presented for sepsis 2/2 to possible pneumonia vs UTI. Per aid at bedside patient seems to be at his baseline. Patient is stable. OBJECTIVE: Vital Signs Period Temp Pulse Resp BP Sys/Bruce Pulse Ox Last 24 Hr 98.5 F-100.3 F 120-130 18-32 137/92 98-100 GENERAL: The patient is awake, severly contracted HEAD: Normal with no signs of trauma. EYES: PERRL, extraocular movements intact, LUNGS: Breath sounds equal, clear to auscultation bilaterally HEART: Regular rate and rhythm, ABDOMEN: Soft, nontender, nondistended, normoactive bowel sounds, colonostomy bag at R UQ, suprapubic yarbrough catheter EXTREMITIES: 2+ pulses, warm, well-perfused, no edema. SKIN: ulcer in left inner groin 1 x3 cm, erythematous, clean borders Laboratory Results - last 24 hr 10/15/17 10/15/17 10/15/17 18:37 22:42 22:42 WBC 14.3 H RBC 5.02 Hgb 11.8 Hct 36.7 MCV 73.2 L MCH 23.6 L MCHC 32.2 RDW 17.2 H Plt Count 400 MPV 7.7 Absolute Neuts (auto) 12.2 Neutrophils % 85.7 H Lymphocytes % 8.4 D Monocytes % 5.2 Eosinophils % 0.4 D Basophils % 0.3 Nucleated RBC % 0 Sodium 141 Potassium 3.7 Chloride 98 Carbon Dioxide 36 H Anion Gap 7 L BUN 45 H Creatinine 0.9 Creat Clearance w eGFR > 60 Random Glucose 114 H Calcium 9.9 Phosphorus Magnesium Total Bilirubin 0.6 AST 21 D ALT 27 D Alkaline Phosphatase 82 Troponin I < 0.02 Total Protein 8.8 H Albumin 3.9 Urine Color Dkyellow Urine Appearance Clear Urine pH 6.0 Ur Specific [place] 1.036 H Urine Protein 1+ H Urine Glucose (UA) Negative Urine Ketones Negative Urine Blood Negative Urine Nitrite Negative Urine Bilirubin Negative Urine Urobilinogen Negative Ur Leukocyte Esterase Negative 10/16/17 06:15 WBC RBC Hgb Hct MCV MCH MCHC RDW Plt Count MPV Absolute Neuts (auto) Neutrophils % Lymphocytes % Monocytes % Eosinophils % Basophils % Nucleated RBC % Sodium 139 Potassium 3.9 Chloride 99 Carbon Dioxide 32 Anion Gap 8 BUN 45 H Creatinine 0.6 L Creat Clearance w eGFR > 60 Random Glucose 111 H Calcium 9.4 Phosphorus 3.5 Magnesium 2.5 H Total Bilirubin 0.7 AST 28 D ALT 27 Alkaline Phosphatase 77 Troponin I Total Protein 8.4 H Albumin 3.6 Urine Color Urine Appearance Urine pH Ur Specific [place] Urine Protein Urine Glucose (UA) Urine Ketones Urine Blood Urine Nitrite Urine Bilirubin Urine Urobilinogen Ur Leukocyte Esterase Active Medications Generic Name Dose Route Start Last Admin Trade Name Freq PRN Reason Stop Dose Admin Acetaminophen 650 mg 10/16/17 02:07 Tylenol Oral Solution - PO Q4H PRN FEVER Albuterol Sulfate 1 amp 10/16/17 02:15 10/16/17 08:13 Ventolin 0.083% Nebulizer Soln - NEB 1 amp Q4HPO TOSIN Administration Aldioxa/Cellulose/Chloroxylenol applic 10/16/17 10:00 Zeasorb - TP DAILY [facility] Ascorbic Acid 500 mg 10/16/17 10:00 Vitamin C - PO BID TOSIN Atenolol 25 mg 10/16/17 10:00 Tenormin - PO DAILY TOSIN Baclofen 10 mg 10/16/17 06:00 10/16/17 08:11 Lioresal - PO 10 mg TID TOSIN Administration Bisacodyl 10 mg 10/16/17 06:00 10/16/17 08:11 Dulcolax Suppository - RC 10 mg TID TOSIN Administration Calcium/Vitamin D 500 tab 10/16/17 14:00 Oscal 250 Mg+D - PO TID TOSIN Ferrous Sulfate 15 mg 10/16/17 10:00 Willy-In-Lupe Drops *Pediatric* - PO DAILY TOSIN Heparin Sodium (Porcine) 5,000 unit 10/16/17 06:00 10/16/17 08:11 Heparin - SQ 5,000 unit TID TOSIN Administration Meropenem 1 gm/ Dextrose 100 mls @ 200 mls/hr 10/16/17 04:00 IVPB Q8H-IV TOSIN Sodium Chloride 1,000 mls @ 75 mls/hr 10/16/17 03:02 10/16/17 03:27 Normal Saline - IV 10/17/17 02:03 75 mls/hr ASDIR TOSIN Administration Meropenem 1 gm/ Dextrose 100 mls @ 200 mls/hr 10/16/17 04:00 IVPB 10/16/17 12:29 Q8H TOSIN Lactobacillus Acidophilus 1 tab 10/16/17 10:00 Bacid - PO BID TOSIN Non-Formulary Medication 3,000 unit 10/16/17 06:00 10/16/17 08:12 Lactase [Lactaid] PO Not Given TID TOSIN Non-Formulary Medication 1 each 10/16/17 10:00 Multivit-Min/Fa/Lycopen/Lutein [Vitrum 50+ Senior Tablet] PO DAILY TOSIN Non-Formulary Medication 1,000 ml 10/16/17 10:00 Saliva Substitute Combo No.9 [Biotene] MM BID TOSIN Non-Formulary Medication 57 gm 10/16/17 22:00 Sulfacetamide Sodium/Sulfur [Sulfacetamide-Sulfur 10-2% Crm] TP HS [facility] Non-Formulary Medication 4 mg 10/16/17 06:00 10/16/17 08:12 Tiagabine Hcl [Gabitril] PO Not Given TID [facility] Non-Formulary Medication 10.8 mg 10/16/17 10:00 Triamcinolone Acetonide [Nasacort] IN DAILY [facility] Pantoprazole Sodium 40 mg 10/16/17 10:00 Protonix - PO DAILY [facility] Polyethylene Glycol 17 gm 10/16/17 10:00 Miralax (For Daily Use) - PO DAILY [facility] Potassium Chloride 10 meq 10/16/17 10:00 Potassium Chloride Oral Liquid PO DAILY [facility] Simethicone 40 mg 10/16/17 10:00 Mylicon - PO QID [facility] Sodium Phosphate 133 ml 10/16/17 02:15 Fleet Adult Rectal Enema - RC PRN [facility] Tizanidine HCl 4 mg 10/16/17 10:00 Tizanidine Hcl PO QID [facility] ASSESSMENT/PLAN: Patient is a 37 y/o male from [place] with a history of MR, congenital quadriplegia, infantile cerebral palsy, seizure, hyperthyroidism, scoliosis, GERD, and multiple pneumonias who presented for sepsis 2/2 to possible aspiration pneumonia. #Sepsis 2/2 to pneumonia likely aspiration - WBC: 14.3 - tmax: 100.3, pulse: 120 - ED: Vanc and Zosyn- pt had allergic rxn to zosyn and given benadryl - Aztreonam 1 gm daily ( day 1) - Clindamycin 300 mg TID ( day 1) - D/C meropenem as it lowers seizure threshold, continue above to cover for anaerobes - Vacomycin (day 2) - CXR: no gross infiltrate - lactobaccilus probiotic - f/u bcx - f/u ucx - f/u legionella culture - continue albuterol nebulizer treatments #seizure - have Michel bring in Tiagabine and have patient continue TID #dehydration - continue fluids @ 75 #HTN - continue atenolol #cerebral palsy - continue Tizanidine - continue baclofen #constipation - ducolax suppository TID - fleet enema prn - miralax # DVT ppx - heparin TID Visit type - Emergency Visit Emergency Visit: Yes ED Registration Date: 10/15/17 Care time: The patient presented to the Emergency Department on the above date and was hospitalized for further evaluation of their emergent condition. - New Patient This patient is new to me today: No - Critical Care Critical Care patient: No
[2017-10-16] MEDS: SIMETHICONE 80 MG TAB.CHEW (FP) PO SCH ×4 (09:45→21:18)
[2017-10-16] MEDS: TIZANIDINE HCL 4 MG TABLET PO SCH ×4 (09:45→21:19)
[2017-10-16] MEDS: LACTOBACILLUS ACIDOPHILUS 1 TABLET PO SCH ×2 (09:45→21:18)
[2017-10-16] MEDS: POTASSIUM CHLORIDE ORAL LIQUID 20 MEQ/15 ML PO SCH (09:45)
[2017-10-16] MEDS: ASCORBIC ACID 500 MG TABLET (FP) PO SCH ×2 (09:45→21:19)
[2017-10-16] MEDS: PANTOPRAZOLE 40 MG TABLET (FP) PO SCH (09:46)
[2017-10-16] MEDS: ATENOLOL 25 MG TABLET (FP) PO SCH (09:46)
[2017-10-16] MEDS ORDERED: SALIVA SUBSTITUTE COMBO NO 9 MM SCH (10:00)
[2017-10-16] MEDS ORDERED: [UNRECOGNIZED DRUG - OTHER] MM SCH (10:00)
[2017-10-16] MEDS ORDERED: FERROUS SO4 15 MG/ML *PEDIATRIC* ORAL SOLN- 50ML BTL PO SCH (10:00)
[2017-10-16] MEDS ORDERED: TALC 70.9 GM BTL TP SCH (10:00)
[2017-10-16] MEDS ORDERED: [UNRECOGNIZED DRUG - OTHER] PO SCH (10:00)
--- NOTE | 2017-10-16 11:26 | EKG ---
Test Reason : Blood Pressure : / mmHG Vent. Rate : 136 BPM Atrial Rate : 136 BPM P-R Int : 000 ms QRS Dur : 068 ms QT Int : 374 ms P-R-T Axes : 076 -14 075 degrees QTc Int : 562 ms POOR DATA QUALITY, INTERPRETATION MAY BE ADVERSELY AFFECTED SINUS TACHYCARDIA POSSIBLE INFERIOR INFARCT , AGE UNDETERMINED ABNORMAL ECG WHEN COMPARED WITH ECG OF 28-DEC-2016 10:48, VENT. RATE HAS INCREASED BY 49 BPM BORDERLINE CRITERIA FOR INFERIOR INFARCT ARE NOW PRESENT Confirmed by MARLO JENKINS, PHANI ([id number]) on 10/16/2017 11:25:41 AM Referred By: Confirmed By:PHANI SELLERS MD
[2017-10-16] MEDS ORDERED: AZTREONAM 1 GM in DEXTROSE 5%-WATER - 50 ML IVPB SCH ×3 (12:00→21:30)
[2017-10-16] MEDS ORDERED: SODIUM PHOSPHATE/NA BIPHOS 133 ML ENEMA RC PRN (12:26)
--- NOTE | 2017-10-16 13:11 | PN ---
Progress Note (short form) - Note Progress Note: ID consult imp/reccd 37 year old man with severe developmental difficulties admitted from [facility] with sob, difficulty breathing, hypoxia temp to 100.3 in ED no clear infliltrate on cxray given vanco/zosyn-developed erythema, hives to the zosyn given benadryl also had a seizure in the ED now on clindamycin and azactam suspected respiratory source of infection difficult exam zosyn allergy ?aspiration agree with clindamycin and azactam add probiotics f/u cultures send urinary antigens Problem List - Problems (1) Pneumonia Code(s): J18.9 - PNEUMONIA, UNSPECIFIED ORGANISM Qualifiers: Aspiration pneumonia type: unspecified Laterality: unspecified laterality Lung location: unspecified part of lung (2) Drug allergy, antibiotic Code(s): Z88.1 - ALLERGY STATUS TO OTHER ANTIBIOTIC AGENTS STATUS
--- NOTE | 2017-10-16 13:16 | PN ---
Teaching Attending Note Name of Resident: Jessica Shaw ATTENDING PHYSICIAN STATEMENT I saw and evaluated the patient. I reviewed the resident's note and discussed the case with the resident. I agree with the resident's findings and plan as documented. SUBJECTIVE: No hx form patient. aid in room did not know much about him . OBJECTIVE: NAD , Awake , comfortable CV: RRR Lungs : CTAB , decreased breath sounds at bases Ext: No edema ABd : soft, deformity , PEG in with green material on dressing . RLQ colostomy bag with brown liquid in bag ASSESSMENT AND PLAN: Unfortunate 37 y/o man with h/o MR, congenital quadriplegia , cerebral palsy, seizure disorder, Hip dislocation, GERD, thyroid disease , scoliosis and other medical problems who presented [place] with hypoxia , fever and increased secretions. He was diagnosed with PNA 1- PNA : likely aspiration . No infiltrate on Cxray but can' t r/o especially with his history. severe transient hypoxia could be due to mucus plugging, now on RA . - No need for CT scan of chest unless, condition changes or worsens - dc meropenem , as he had seizures in ER . - start clinda and aztreonam to cover Aspiration and G- organisms. No MRSA on previous cx - follow blood cx - send sputum cx - add , Mucomyst Nebs 2- seizures, in ER. has h/p Seizure . - avoid meds that can lower seizure threshold - asked aid to bring his Tiagabine form Anand 3- possible volume depletion : gentle hydration IVF 4- H/o Thyroid disease. Not clear hypo or hyper. will confirm with Anand. 5- distended bowel on Cxray. Nl abd exam. present on previous imaging. No further w/u 6- DVT PX
[2017-10-16] MEDS ORDERED: PT OWN MED DRAWER 7, Y5N ONE ×4 (13:27→20:30)
[2017-10-16] MEDS: POLYETHYLENE GLYCOL 3350 119 GM BTL PO SCH (13:33)
[2017-10-16] MEDS ORDERED: CALCIUM 500MG/VIT-D 200 UNITS COMBO TABLET (FP) PO SCH (14:00)
[2017-10-16] MEDS: FLUTICASONE PROP 0.05% 16 GM NASAL SPRAY NS SCH (15:50)
[2017-10-16] MEDS: CLINDAMYCIN PALMITATE HCL ORAL SOLUTION 75 MG/5 ML BOTTLE GT SCH ×2 (15:52→21:32)
[2017-10-16] MEDS: SODIUM CHLORIDE 1,000 ML IV SCH (15:54)
[2017-10-16] MEDS: CALCIUM 500MG/VIT-D 200 UNITS COMBO TABLET (FP) PO SCH ×2 (17:21→21:19)
[2017-10-16] MEDS: AZTREONAM 1 GM in DEXTROSE 5%-WATER - 50 ML IVPB SCH (21:17)
[2017-10-16] MEDS: TIAGABINE 4 MG GT SCH (21:20)
[2017-10-16] MEDS ORDERED: [UNRECOGNIZED DRUG - OTHER] TP SCH (22:00)
[2017-10-16] MEDS ORDERED: SULFACETAMIDE SODIUM TP SCH (22:00)
[2017-10-16] MEDS ORDERED: SULFUR TP SCH (22:00)
[2017-10-17] MEDS: AZTREONAM 1 GM in DEXTROSE 5%-WATER - 50 ML IVPB SCH ×3 (01:21→17:25)
[2017-10-17] MEDS: ALBUTEROL SO4 0.083% IH SOL 2.5 MG/3 ML VIAL.NEB. NEB SCH ×6 (03:00→21:36)
[2017-10-17] MEDS: CLINDAMYCIN PALMITATE HCL ORAL SOLUTION 75 MG/5 ML BOTTLE GT SCH ×2 (05:50→14:46)
[2017-10-17] MEDS: BACLOFEN 10 MG TABLET (FP) PO SCH ×3 (05:50→22:40)
[2017-10-17] MEDS: HEPARIN NA (PORCINE) 5,000 UNITS/ML 1ML VIAL SQ SCH ×3 (05:50→22:41)
[2017-10-17] MEDS: CALCIUM 500MG/VIT-D 200 UNITS COMBO TABLET (FP) PO SCH ×3 (05:50→22:40)
[2017-10-17] MEDS: BISACODYL 10 MG SUPP.RECT RC SCH ×3 (05:50→22:40)
[2017-10-17] MEDS: TIAGABINE 4 MG GT SCH ×3 (05:51→22:46)
[2017-10-17 07:43] LABS: HEMATOCRIT 28.5 % (35.4-49); HEMOGLOBIN 9.4 GM/dL (11.7-16.9); MCH 24.1 pg (25.7-33.7); MEAN CELL VOLUME 73.1 fl (80-96); MEAN PLT VOLUME 8.3 fl (7.5-11.1); PLATELET COUNT 248 K/MM3 (134-434); WHITE BLOOD COUNT 5.3 K/mm3 (4.0-10.0)
[2017-10-17 08:07] LABS: ANION GAP 7 (8-16); BLOOD UREA NITROGEN 28 mg/dL (7-18); CALCIUM 8.6 mg/dL (8.5-10.1); CHLORIDE 100 mmol/L (98-107); CO2 29 mmol/L (21-32); GLUCOSE,RANDOM 110 mg/dL (74-106); SODIUM 136 mmol/L (136-145)
[2017-10-17 08:08] LABS: CREATININE 0.4 mg/dL (0.7-1.3)
[2017-10-17] MEDS: SODIUM CHLORIDE 1,000 ML IV SCH (08:10)
[2017-10-17 08:18] LABS: POTASSIUM 4.1 mmol/L (3.5-5.1)
[2017-10-17] MEDS ORDERED: PT OWN MED DRAWER 7, Y5N ONE ×5 (08:56→22:49)
[2017-10-17] MEDS: ASCORBIC ACID 500 MG TABLET (FP) PO SCH ×2 (09:35→22:45)
[2017-10-17] MEDS: TIZANIDINE HCL 4 MG TABLET PO SCH ×4 (09:35→22:47)
[2017-10-17] MEDS: ATENOLOL 25 MG TABLET (FP) PO SCH (09:35)
[2017-10-17] MEDS: POLYETHYLENE GLYCOL 3350 119 GM BTL PO SCH (09:35)
[2017-10-17] MEDS: SIMETHICONE 80 MG TAB.CHEW (FP) PO SCH ×4 (09:35→22:40)
[2017-10-17] MEDS: LACTOBACILLUS ACIDOPHILUS 1 TABLET PO SCH ×2 (09:35→22:40)
[2017-10-17] MEDS: PANTOPRAZOLE 40 MG TABLET (FP) PO SCH (09:35)
[2017-10-17] MEDS: FLUTICASONE PROP 0.05% 16 GM NASAL SPRAY NS SCH (09:36)
[2017-10-17] MEDS: POTASSIUM CHLORIDE ORAL LIQUID 20 MEQ/15 ML PO SCH (09:37)
--- NOTE | 2017-10-17 10:05 | PN ---
Progress Note (short form) - Note Progress Note: nad no fevers resting comfortably Vital Signs Period Temp Pulse Resp BP Sys/Bruce Pulse Ox Last 24 Hr 97.5 F-98.3 F 89-91 18-20 96-141/54-75 95-97 cor-rrr lungs decreased bs at bases abd firm +gt ext no edema CBC, BMP 10/17/17 07:20 10/17/17 07:20 Microbiology 10/15/17 20:41 Blood - Peripheral Venous Blood Culture - Preliminary NO GROWTH OBTAINED AFTER 24 HOURS, INCUBATION TO CONTINUE FOR 4 DAYS. 10/15/17 20:41 Blood - Peripheral Venous Blood Culture - Preliminary NO GROWTH OBTAINED AFTER 24 HOURS, INCUBATION TO CONTINUE FOR 4 DAYS. a/p suspected respiratory source of infection difficult exam zosyn allergy ?aspiration continue clindamycin and azactam day #2 clinically improved Problem List - Problems (1) Pneumonia Code(s): J18.9 - PNEUMONIA, UNSPECIFIED ORGANISM Qualifiers: Aspiration pneumonia type: unspecified Laterality: unspecified laterality Lung location: unspecified part of lung (2) Drug allergy, antibiotic Code(s): Z88.1 - ALLERGY STATUS TO OTHER ANTIBIOTIC AGENTS STATUS
--- NOTE | 2017-10-17 10:28 | CONS ---
DATE OF CONSULTATION: DATE OF DISCHARGE: 10/17/2017 HISTORY: This is a 37-year-old man with multiple developmental delays. He resides at the [facility]. He was sent to the emergency room on the with shortness of breath, hypoxia, difficulty breathing. He had a temperature of 100.3 in the emergency room. There is no clear infiltrate on chest x-ray. He was given vancomycin and Zosyn for possible pneumonia. He developed erythema and hives to the Zosyn and was given Benadryl. He also had a seizure in the emergency room. He is not on clindamycin and Azactam and resting comfortably. I am asked to see him for possible pneumonia. PAST MEDICAL HISTORY: The patient is nonverbal and unable to give any history. Notable for profound retardation, congenital quadriplegia, infantile cerebral palsy, seizure disorder, hypothyroidism, scoliosis, GERD. He has had a G-tube placed. He has had multiple admissions for pneumonia. He had a prior prolonged admission as well in 2017 during which he was treated for aspiration pneumonia during which he had a G-tube replaced. MEDICATIONS: At the [place] [facility] include zinc, tizanidine, Gabitril, simethicone, potassium, nystatin, multivitamins, Reglan, Acidophilus, ferrous sulfate, calcium carbonate, vitamin D, baclofen, and atenolol. SOCIAL HISTORY: He resides at the [facility] where he requires total care. REVIEW OF SYSTEMS: Apparently notable for his respiratory symptoms only. PHYSICAL EXAMINATION: Vital Signs: His T-max is 100.3 in the emergency room. Otherwise, he has been afebrile. Temperature 97.5, pulse 191, blood pressure 96/60, respiratory rate 20. General: He is resting comfortably on room air. He is not cooperative with exam as he cannot follow commands. HEENT: She is normocephalic. Lungs: Diminished breath sounds at the bases. Heart: Regular rate and rhythm. Abdomen: Firm, distended. He has a G-tube in place. Extremities: Without edema. LABORATORIES: On admission, white count 14 on the and on the was 10.3, hemoglobin 11.2, platelets 336. BUN 45, creatinine 0.6. Urinalysis negative. Cultures pending. Chest x-ray showed no clear infiltrate. In summary, a 37-year-old man with multiple developmental delays. Clinical picture most consistent with a respiratory source of infection. It is a difficult exam and difficult x-ray given his habitus. He has a ZOSYN allergy and may very well have aspirated. I would agree with clindamycin and Azactam as ordered with probiotics. Follow up cultures and urinary antigens. Further recommendations to follow based on his clinical course. The case was discussed with the hospitalist. BERTO MONTENEGRO M.D. [id number]
--- NOTE | 2017-10-17 10:50 | PN ---
Physical Exam: SUBJECTIVE: Patient is a 37 y/o male from [place] with a history of MR, congenital quadriplegia, infantile cerebral palsy, seizure, hyperthyroidism, scoliosis, GERD, and multiple pneumonias who presented for sepsis 2/2 to possible pneumonia. Patient afebrile over night. Cultures negative. Patient at baseline OBJECTIVE: Vital Signs Period Temp Pulse Resp BP Sys/Bruce Pulse Ox Last 24 Hr 97.5 F-97.8 F 89-91 18-20 96-141/54-75 97-97 GENERAL: The patient is awake, severly contracted HEAD: Normal with no signs of trauma. EYES: PERRL, extraocular movements intact, LUNGS: Breath sounds equal, clear to auscultation bilaterally HEART: Regular rate and rhythm, ABDOMEN: Soft, nontender, nondistended, normoactive bowel sounds, colonostomy bag at R UQ, suprapubic G tube EXTREMITIES: 2+ pulses, warm, well-perfused, no edema. SKIN: ulcer at back upper left thigh 1 x3 cm, erythematous, clean borders Laboratory Results - last 24 hr 10/17/17 10/17/17 07:20 07:20 WBC 5.3 RBC 3.90 L Hgb 9.4 L Hct 28.5 L D MCV 73.1 L MCH 24.1 L MCHC 33.0 RDW 17.0 H Plt Count 248 D MPV 8.3 Sodium 136 Potassium 4.1 Chloride 100 Carbon Dioxide 29 Anion Gap 7 L BUN 28 H Creatinine 0.4 L Creat Clearance w eGFR > 60 Random Glucose 110 H Calcium 8.6 Active Medications Generic Name Dose Route Start Last Admin Trade Name Mikeq PRN Reason Stop Dose Admin Acetaminophen 650 mg 10/16/17 02:07 10/17/17 09:38 Tylenol Oral Solution - PO 650 mg Q4H PRN Administration FEVER Albuterol Sulfate 1 amp 10/16/17 02:15 10/17/17 10:42 Ventolin 0.083% Nebulizer Soln - NEB 1 amp Q4HPO TOSIN Administration Ascorbic Acid 500 mg 10/16/17 10:00 10/17/17 09:35 Vitamin C - PO 500 mg BID TOSIN Administration Atenolol 25 mg 10/16/17 10:00 10/17/17 09:35 Tenormin - PO 25 mg DAILY TOSIN Administration Baclofen 10 mg 10/16/17 06:00 10/17/17 05:50 Lioresal - PO 10 mg TID TOSIN Administration Bisacodyl 10 mg 10/16/17 06:00 10/17/17 05:50 Dulcolax Suppository - RC 10 mg TID TOSIN Administration Calcium Carbonate/Cholecalciferol 1 tab 10/16/17 16:00 10/17/17 05:50 Os-Gerald 500+D - PO 1 tab TID TOSIN Administration Clindamycin Palmitate HCl 300 mg 10/16/17 14:00 10/17/17 05:50 Cleocin Oral Solution - GT 300 mg TID TOSIN Administration Fluticasone Propionate 1 spray 10/16/17 13:00 10/17/17 09:36 Flonase - NS 1 spray DAILY TOSIN Administration Heparin Sodium (Porcine) 5,000 unit 10/16/17 06:00 10/17/17 05:50 Heparin - SQ 5,000 unit TID TOSIN Administration Aztreonam 1 gm/ Dextrose 50 mls @ 100 mls/hr 10/16/17 21:30 10/17/17 09:34 IVPB 100 mls/hr Q8H-IV TOSIN Administration Protocol Sodium Chloride 1,000 mls @ 50 mls/hr 10/16/17 13:30 10/17/17 08:10 Normal Saline - IV 10/17/17 13:20 50 mls/hr ASDIR TOSIN Administration Lactobacillus Acidophilus 1 tab 10/16/17 10:00 10/17/17 09:35 Bacid - PO 1 tab BID TOSIN Administration Tiagabine 4 Mg 1 each 10/16/17 22:00 10/17/17 05:51 Tablet Patient's Own GT 1 each Medication (Non- TID TOSIN Administration Formulary) Pantoprazole Sodium 40 mg 10/16/17 10:00 10/17/17 09:35 Protonix - PO 40 mg DAILY TOSIN Administration Polyethylene Glycol 17 gm 10/16/17 10:00 10/17/17 09:35 Miralax (For Daily Use) - PO 17 gm DAILY TOSIN Administration Potassium Chloride 10 meq 10/16/17 10:00 10/17/17 09:37 Potassium Chloride Oral Liquid PO 10 meq DAILY TOSIN Administration Simethicone 40 mg 10/16/17 10:00 10/17/17 09:35 Mylicon - PO 40 mg QID TOSIN Administration Sodium Phosphate 133 ml 10/16/17 12:26 Fleet Adult Rectal Enema - RC DAILY PRN CONSTIPATION Tizanidine HCl 4 mg 10/16/17 10:00 10/17/17 09:35 Tizanidine Hcl PO 4 mg QID TOSIN Administration ASSESSMENT/PLAN: Patient is a 37 y/o male from [place] with a history of MR, congenital quadriplegia, infantile cerebral palsy, seizure, hyperthyroidism, scoliosis, GERD, and multiple pneumonias who presented for sepsis 2/2 to possible aspiration pneumonia. #Sepsis 2/2 to pneumonia likely aspiration - WBC: 14.3 - tmax: 100.3, pulse: 120 - ED: Vanc and Zosyn- pt had allergic rxn to zosyn and given benadryl - Aztreonam 1 gm daily ( day 2) - Clindamycin 300 mg TID ( day 2) - D/C meropenem as it lowers seizure threshold, continue above to cover for anaerobes - CXR: no gross infiltrate - lactobaccilus probiotic - f/u bcx - f/u ucx - f/u legionella culture - continue albuterol nebulizer treatments #seizure - have [place] bring in Tiagabine and have patient continue TID #dehydration - continue fluids @ 75 #HTN - continue atenolol #cerebral palsy - continue Tizanidine - continue baclofen #constipation - ducolax suppository TID - fleet enema prn - miralax # DVT ppx - heparin TID #Dispo: switch to oral antibiotics and dispo to [place] thursday. Visit type - Emergency Visit Emergency Visit: No - New Patient This patient is new to me today: No - Critical Care Critical Care patient: No
--- NOTE | 2017-10-17 13:09 | PN ---
Teaching Attending Note Name of Resident: Herminia Causey ATTENDING PHYSICIAN STATEMENT I saw and evaluated the patient. I reviewed the resident's note and discussed the case with the resident. I agree with the resident's findings and plan as documented. SUBJECTIVE: No events over night . OBJECTIVE: NAD , Awake , comfortable CV: RRR Lungs : CTAB , decreased breath sounds at bases Ext: No edema ABd : soft, deformity , PEG in with clean dresing today . RLQ colostomy bag with brown liquid in bag ASSESSMENT AND PLAN: Unfortunate 37 y/o man with h/o MR, congenital quadriplegia , cerebral palsy, seizure disorder, Hip dislocation, GERD, thyroid disease , scoliosis and other medical problems who presented form [place] with hypoxia , fever and increased secretions. He was diagnosed with PNA 1- PNA : likely aspiration . - cont clinda and aztreonam - follow blood cx and sputum cx - cont mucomyst 2- Seizures, - cont Tiagabine 3- Volume depletion : gentle hydration IVF cont free water with TF 4- DVT PX dispo : HLOC
[2017-10-17 13:26] VITALS: BMI 17.4
[2017-10-17] MEDS ORDERED: ACETYLCYSTEINE 20% 200MG/ML 30 ML VIAL *FOR ORAL / INH USE ONLY NEB SCH (22:00)
[2017-10-17] MEDS ORDERED: CLINDAMYCIN HCL 150 MG CAPSULE (FP) GT SCH (23:30)
[2017-10-17] MEDS: CLINDAMYCIN HCL 150 MG CAPSULE (FP) GT SCH (23:34)
[2017-10-18] MEDS: CLINDAMYCIN PALMITATE HCL ORAL SOLUTION 75 MG/5 ML BOTTLE GT SCH (00:56)
[2017-10-18] MEDS: AZTREONAM 1 GM in DEXTROSE 5%-WATER - 50 ML IVPB SCH ×3 (01:33→17:13)
[2017-10-18] MEDS: ALBUTEROL SO4 0.083% IH SOL 2.5 MG/3 ML VIAL.NEB. NEB SCH ×5 (02:15→17:42)
[2017-10-18] MEDS: CLINDAMYCIN HCL 150 MG CAPSULE (FP) GT SCH ×3 (05:26→22:32)
[2017-10-18] MEDS: BACLOFEN 10 MG TABLET (FP) PO SCH ×3 (05:26→22:31)
[2017-10-18] MEDS: HEPARIN NA (PORCINE) 5,000 UNITS/ML 1ML VIAL SQ SCH ×3 (05:26→22:34)
[2017-10-18] MEDS: BISACODYL 10 MG SUPP.RECT RC SCH ×3 (05:26→22:31)
[2017-10-18] MEDS: CALCIUM 500MG/VIT-D 200 UNITS COMBO TABLET (FP) PO SCH ×3 (05:26→22:31)
[2017-10-18] MEDS: TIAGABINE 4 MG GT SCH ×3 (05:27→22:33)
[2017-10-18] MEDS ORDERED: PT OWN MED DRAWER 7, Y5N ONE ×7 (05:46→17:08)
[2017-10-18 08:04] LABS: HEMOGLOBIN 8.5 GM/dL (11.7-16.9); MCH 24.2 pg (25.7-33.7); MCHC 32.8 g/dl (32.0-35.9); MEAN CELL VOLUME 73.6 fl (80-96); MEAN PLT VOLUME 8.5 fl (7.5-11.1); PLATELET COUNT 151 K/MM3 (134-434); RBC 3.53 M/mm3 (4.00-5.60); RDW 16.8 % (11.9-15.9); WHITE BLOOD COUNT 6.4 K/mm3 (4.0-10.0)
[2017-10-18 08:26] LABS: ANION GAP 6 (8-16); BLOOD UREA NITROGEN 22 mg/dL (7-18); CALCIUM 8.7 mg/dL (8.5-10.1); CHLORIDE 103 mmol/L (98-107); CO2 30 mmol/L (21-32); CREATININE 0.3 mg/dL (0.7-1.3); GLUCOSE,RANDOM 110 mg/dL (74-106); POTASSIUM 3.8 mmol/L (3.5-5.1); SODIUM 139 mmol/L (136-145)
[2017-10-18] MEDS: POTASSIUM CHLORIDE ORAL LIQUID 20 MEQ/15 ML PO SCH (10:39)
[2017-10-18] MEDS: ATENOLOL 25 MG TABLET (FP) PO SCH (10:39)
[2017-10-18] MEDS: PANTOPRAZOLE 40 MG TABLET (FP) PO SCH (10:40)
[2017-10-18] MEDS: LACTOBACILLUS ACIDOPHILUS 1 TABLET PO SCH ×2 (10:40→22:31)
[2017-10-18] MEDS: ASCORBIC ACID 500 MG TABLET (FP) PO SCH ×2 (10:40→22:31)
[2017-10-18] MEDS: TIZANIDINE HCL 4 MG TABLET PO SCH ×4 (10:40→22:32)
[2017-10-18] MEDS: SIMETHICONE 80 MG TAB.CHEW (FP) PO SCH ×4 (10:40→22:31)
[2017-10-18] MEDS: POLYETHYLENE GLYCOL 3350 119 GM BTL PO SCH (10:45)
[2017-10-18] MEDS: FLUTICASONE PROP 0.05% 16 GM NASAL SPRAY NS SCH (10:45)
--- NOTE | 2017-10-18 14:26 | PN ---
Progress Note (short form) - Note Progress Note: Subjective: No evens per RN Objective: Vital Signs: Last Vital Signs Temp Pulse Resp BP Pulse Ox 98.2 F 105 H 20 134/84 97 10/18/17 09:57 10/18/17 09:57 10/18/17 09:57 10/18/17 09:57 10/17/17 21:00 Laboratory Results - last 24 hr 10/18/17 10/18/17 06:15 06:15 WBC 6.4 RBC 3.53 L Hgb 8.5 L Hct 26.0 L MCV 73.6 L MCH 24.2 L MCHC 32.8 RDW 16.8 H Plt Count 151 D MPV 8.5 Sodium 139 Potassium 3.8 Chloride 103 Carbon Dioxide 30 Anion Gap 6 L BUN 22 H Creatinine 0.3 L Creat Clearance w eGFR > 60 Random Glucose 110 H Calcium 8.7 Physical Exam: NAD, Awake , comfortable CV: RRR Lungs: CTAB , decreased breath sounds at bases Ext: No edema ABd : soft, deformity , PEG in with clean dressing today.empty RLQ colostomy bag ASSESSMENT AND PLAN: Unfortunate 37 y/o man with h/o MR, congenital quadriplegia , cerebral palsy, seizure disorder, Hip dislocation, GERD, thyroid disease , scoliosis and other medical problems who presented form [place] with hypoxia , fever and increased secretions. He was diagnosed with PNA 1- PNA : likely aspiration . - cont clinda and aztreonam day 3. likely switch to po tomorrow to finish 5 days - follow blood cx. debra on sputum cx 2- Seizures, - cont Tiagabine 3- Volume depletion : stop IVF free water through PEG 4- DVT PX dispo : HLOC possible dc tomorrow Visit type - Emergency Visit Emergency Visit: Yes ED Registration Date: 10/15/17 Care time: The patient presented to the Emergency Department on the above date and was hospitalized for further evaluation of their emergent condition. - New Patient This patient is new to me today: No - Critical Care Critical Care patient: No
[2017-10-19] MEDS ORDERED: PT OWN MED DRAWER 7, Y5N ONE ×3 (01:16→14:31)
[2017-10-19] MEDS: AZTREONAM 1 GM in DEXTROSE 5%-WATER - 50 ML IVPB SCH ×2 (01:23→10:07)
[2017-10-19] MEDS: CLINDAMYCIN HCL 150 MG CAPSULE (FP) GT SCH ×2 (06:18→15:04)
[2017-10-19] MEDS: CALCIUM 500MG/VIT-D 200 UNITS COMBO TABLET (FP) PO SCH ×2 (06:18→15:05)
[2017-10-19] MEDS: TIAGABINE 4 MG GT SCH ×2 (06:19→15:06)
[2017-10-19] MEDS: HEPARIN NA (PORCINE) 5,000 UNITS/ML 1ML VIAL SQ SCH ×2 (06:19→15:05)
[2017-10-19] MEDS: BISACODYL 10 MG SUPP.RECT RC SCH ×2 (06:19→15:05)
[2017-10-19] MEDS: BACLOFEN 10 MG TABLET (FP) PO SCH ×2 (06:26→15:05)
--- NOTE | 2017-10-19 08:56 | PN ---
Teaching Attending Note Name of Resident: Herminia Causey ATTENDING PHYSICIAN STATEMENT I saw and evaluated the patient. I reviewed the resident's note and discussed the case with the resident. I agree with the resident's findings and plan as documented. SUBJECTIVE: No events over night OBJECTIVE: NAD, Awake , comfortable CV: RRR Lungs: CTAB anteriorly , decreased breath sounds at bases Ext: No edema ABd : soft, deformity , PEG in with clean dressing today.empty RLQ colostomy bag ASSESSMENT AND PLAN: Unfortunate 37 y/o man with h/o MR, congenital quadriplegia , cerebral palsy, seizure disorder, Hip dislocation, GERD, thyroid disease , scoliosis and other medical problems who presented form [place] with hypoxia , fever and increased secretions. He was diagnosed with PNA 1- PNA : likely aspiration . - day 4 of clinda and azreonam, cont clinda x 1 more day only - blood cx neg x 72 hrs. debra on sputum cx 2- Seizures, - cont Tiagabine 3- TF with free water dc to [place] today . will call Dr. Gusman
[2017-10-19] MEDS: ASCORBIC ACID 500 MG TABLET (FP) PO SCH (10:08)
[2017-10-19] MEDS: SIMETHICONE 80 MG TAB.CHEW (FP) PO SCH ×2 (10:08→15:20)
[2017-10-19] MEDS: POTASSIUM CHLORIDE ORAL LIQUID 20 MEQ/15 ML PO SCH (10:09)
[2017-10-19] MEDS: FLUTICASONE PROP 0.05% 16 GM NASAL SPRAY NS SCH (10:09)
[2017-10-19] MEDS: LACTOBACILLUS ACIDOPHILUS 1 TABLET PO SCH (10:10)
[2017-10-19] MEDS: PANTOPRAZOLE 40 MG TABLET (FP) PO SCH (10:10)
[2017-10-19] MEDS: ATENOLOL 25 MG TABLET (FP) PO SCH (10:11)
[2017-10-19] MEDS: TIZANIDINE HCL 4 MG TABLET PO SCH ×2 (10:12→15:07)
[2017-10-19] MEDS: ALBUTEROL SO4 0.083% IH SOL 2.5 MG/3 ML VIAL.NEB. NEB SCH (10:15)
[2017-10-19] MEDS: POLYETHYLENE GLYCOL 3350 119 GM BTL PO SCH (10:23)
--- NOTE | 2017-10-19 11:09 | CON.GI ---
Consult Consult Specialty:: GI Reason for Consultation:: Coffee-ground emesis in SNF. - History of Present Illness History of Present Illness: Chart reviewed. Events noted. The pt is known to GI service form prior admissions. The pt is hospitalized and treated for respiratory track infections/ PNA. Per SNF staff, he had few episodes of coffee-ground emesis and dark material in the collecting bag over the g-tube track. No stigmata of recent , or ongoing GI bleeding was noted during this hospitalization however the HGB was noted to decrease by 3 gm. No documented history of PUD, or upper GI inflammatory states. 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) - Alcohol/Substance Use Hx Alcohol Use: No - Smoking History Smoking history: Never smoked Have you smoked in the past 12 months: No - Social History Usual Living Arrangement: Senior Living History of Recent Travel: No Home Medications - Allergies Allergies/Adverse Reactions: Allergies Allergy/AdvReac Type Severity Reaction Status Date / Time piperacillin [From Zosyn] Allergy Verified 10/15/17 21:56 tazobactam [From Zosyn] Allergy Verified 10/15/17 21:56 - Home Medications Home Medications: Ambulatory Orders Atenolol [Tenormin] 25 mg PO DAILY 03/03/17 Baclofen 10 mg PO TID 03/03/17 Bisacodyl 10 mg RC TID 03/03/17 Lactobacillus Acidophilus [Acidophilus] 1 each PO BID 03/03/17 Potassium Chloride Oral Soln [KCl Oral Solution] 10 meq PO DAILY 03/03/17 Simethicone 40 mg PO QID 03/03/17 Tiagabine HCl [Gabitril] 4 mg PO TID 03/03/17 Tizanidine HCl 4 mg PO QID 03/03/17 Bacitracin - [Bacitracin Topical Ointment -] 1 applic TP BID 10/16/17 Calcium Carbonate/Vitamin D3 [Oyster Shell 500-Vit D3 200 Tb] 1 each PO TID Clindamycin Topical Solution [Cleocin 1% Topical Solution -] 1 applic TP DAILY 10/16/17 Clotrimazole 1 applic TP TID 10/16/17 Ferrous Sulfate 220 mg PO DAILY 10/16/17 Fluticasone Prop 0.05% Nasal [Flonase -] 1 - 2 spray NS DAILY 10/16/17 Multivit-Minerals/Ferrous Fum [Multivitamin Liquid] 30 ml PO DAILY 10/16/17 Nystatin Powder [Nystop Powder -] 1 applic TP TID 10/16/17 Zinc Gluconate [Zinc] 100 mg PO DAILY 10/16/17 Zinc Oxide 20% Topical Oint 1 applic TP BID 10/16/17 Clindamycin Oral Solution [Cleocin Oral Solution -] 300 mg GT Q8H #80 ml Family Disease History - Family Disease History Family History: Unremarkable Review of Systems Findings/Remarks: as per SNF records, ED, H&P, and HPI Physical Exam-GI Vital Signs: Vital Signs Temperature 97.5 F L 10/19/17 07:15 Pulse Rate 109 H 10/19/17 07:15 Respiratory Rate 20 10/19/17 07:15 Blood Pressure 140/96 10/19/17 07:15 O2 Sat by Pulse Oximetry (%) 97 10/17/17 21:00 Constitutional: Yes: No Distress, Calm Eyes: Yes: Conjunctiva Clear HENT: Yes: Atraumatic Neck: Yes: Supple Cardiovascular: Yes: Regular Rate and Rhythm Respiratory: Yes: Regular Gastrointestinal Inspection: No: Ascites, Distention ...Auscultate: Yes: Normoactive Bowel Sounds ...Palpate: Yes: Soft, Other (J-tube in plac and appears to be intact.). No: Firm/Rigid, Guarding, Mass Labs: CBC, BMP 10/18/17 06:15 10/18/17 06:15 Laboratory Last Values WBC 6.4 K/mm3 (4.0-10.0) 10/18/17 06:15 RBC 3.53 M/mm3 (4.00-5.60) L 10/18/17 06:15 Hgb 8.5 GM/dL (11.7-16.9) L 10/18/17 06:15 Hct 26.0 % (35.4-49) L 10/18/17 06:15 MCV 73.6 fl (80-96) L 10/18/17 06:15 MCH 24.2 pg (25.7-33.7) L 10/18/17 06:15 MCHC 32.8 g/dl (32.0-35.9) 10/18/17 06:15 RDW 16.8 % (11.9-15.9) H 10/18/17 06:15 Plt Count 151 K/MM3 (134-434) D 10/18/17 06:15 MPV 8.5 fl (7.5-11.1) 10/18/17 06:15 Absolute Neuts (auto) 7.6 # 10/16/17 08:00 Neutrophils % 73.5 % (42.8-82.8) 10/16/17 08:00 Lymphocytes % 17.0 % (8-40) D 10/16/17 08:00 Monocytes % 7.1 % (3.8-10.2) 10/16/17 08:00 Eosinophils % 1.8 % (0-4.5) D 10/16/17 08:00 Basophils % 0.6 % (0-2.0) 10/16/17 08:00 Nucleated RBC % 0 % (0-0) 10/16/17 08:00 Sodium 139 mmol/L (136-145) 10/18/17 06:15 Potassium 3.8 mmol/L (3.5-5.1) 10/18/17 06:15 Chloride 103 mmol/L (98-107) 10/18/17 06:15 Carbon Dioxide 30 mmol/L (21-32) 10/18/17 06:15 Anion Gap 6 (8-16) L 10/18/17 06:15 BUN 22 mg/dL (7-18) H 10/18/17 06:15 Creatinine 0.3 mg/dL (0.7-1.3) L 10/18/17 06:15 Creat Clearance w eGFR > 60 (>60) 10/18/17 06:15 Random Glucose 110 mg/dL (74-106) H 10/18/17 06:15 Calcium 8.7 mg/dL (8.5-10.1) 10/18/17 06:15 Phosphorus 3.5 mg/dL (2.5-4.9) 10/16/17 06:15 Magnesium 2.5 mg/dL (1.8-2.4) H 10/16/17 06:15 Total Bilirubin 0.7 mg/dL (0.2-1.0) 10/16/17 06:15 AST 28 U/L (15-37) D 10/16/17 06:15 ALT 27 U/L (12-78) 10/16/17 06:15 Alkaline Phosphatase 77 U/L (45-117) 10/16/17 06:15 Troponin I < 0.02 ng/ml (0.00-0.05) 10/15/17 22:42 Total Protein 8.4 g/dl (6.4-8.2) H 10/16/17 06:15 Albumin 3.6 g/dl (3.4-5.0) 10/16/17 06:15 Urine Color Dkyellow 10/15/17 18:37 Urine Appearance Clear 10/15/17 18:37 Urine pH 6.0 (5.0-8.0) 10/15/17 18:37 Ur Specific [employer] 1.036 (1.001-1.035) H 10/15/17 18:37 Urine Protein 1+ (NEGATIVE) H 10/15/17 18:37 Urine Glucose (UA) Negative (NEGATIVE) 10/15/17 18:37 Urine Ketones Negative (NEGATIVE) 10/15/17 18:37 Urine Blood Negative (NEGATIVE) 10/15/17 18:37 Urine Nitrite Negative (NEGATIVE) 10/15/17 18:37 Urine Bilirubin Negative (<2.0 mg/dL) 10/15/17 18:37 Urine Urobilinogen Negative mg/dL (0.2-1.0) 10/15/17 18:37 Ur Leukocyte Esterase Negative (NEGATIVE) 10/15/17 18:37 Urine WBC (Auto) 2 /hpf (3-5) 10/15/17 18:37 Urine RBC (Auto) 6 /hpf (0-3) 10/15/17 18:37 Urine Mucus Rare 10/15/17 18:37 Problem List - Problems (1) Anemia Code(s): D64.9 - ANEMIA, UNSPECIFIED (2) Coffee ground emesis Code(s): K92.0 - HEMATEMESIS Assessment/Plan A 37M with acute respiratory tract infection/PNA and anemia w/o stigmata of ongoing, significant GI bleeding. The anemia is mosts likely mulifatorial. Scoliosis and respiratory system infection pose increased risk of complications , thus the endoscopic work up, at this time, will be reserved for suspected active GI bleeding. Agree with PPI, avoiding NSAIDs. Stool heme, iron profile.
[2017-10-19 11:13] LABS: HEMATOCRIT 29.5 % (35.4-49); HEMOGLOBIN 9.6 GM/dL (11.7-16.9); MCH 23.8 pg (25.7-33.7); MCHC 32.7 g/dl (32.0-35.9); MEAN CELL VOLUME 72.8 fl (80-96); MEAN PLT VOLUME 8.1 fl (7.5-11.1); PLATELET COUNT 269 K/MM3 (134-434); RBC 4.05 M/mm3 (4.00-5.60); RDW 17.2 % (11.9-15.9)
[2017-10-19 14:00] VITALS: BP 156/90; PULSE 110; TEMP 98.2
--- NOTE | 2017-10-19 14:10 | DS ---
Physical Exam: SUBJECTIVE: Patient is a 37 y/o male from [place] with a history of MR, congenital quadriplegia, infantile cerebral palsy, seizure, hyperthyroidism, scoliosis, GERD, and multiple pneumonias who presented for sepsis 2/2 to possible pneumonia. Patient afebrile over night. Patient at baseline. Spoke with PCP who wanted a GI consultation for leaky J tube OBJECTIVE: Vital Signs Period Temp Pulse Resp BP Sys/Bruce Pulse Ox Last 24 Hr 97.2 F-97.9 F 80-109 18-20 132-140/73-96 PHYSICAL EXAM GENERAL: The patient is awake, severly contracted HEAD: Normal with no signs of trauma. EYES: PERRL, extraocular movements intact, LUNGS: Breath sounds equal, clear to auscultation bilaterally HEART: Regular rate and rhythm, ABDOMEN: Soft, nontender, nondistended, normoactive bowel sounds, colonostomy bag at R UQ, suprapubic G tube EXTREMITIES: 2+ pulses, warm, well-perfused, no edema. SKIN: ulcer at back upper left thigh 1 x3 cm, erythematous, clean borders LABS Laboratory Results - last 24 hr 10/19/17 10:46 WBC 5.0 RBC 4.05 Hgb 9.6 L Hct 29.5 L MCV 72.8 L MCH 23.8 L MCHC 32.7 RDW 17.2 H Plt Count 269 D MPV 8.1 HOSPITAL COURSE: Date of Admission:10/15/17 Patient is a 37 y/o male from [place] with a history of MR, congenital quadriplegia, infantile cerebral palsy, seizure, hyperthyroidism, scoliosis, GERD, and multiple pneumonias who presented with shortness of breath, fever, and hematemesis. Fever was 100.3, WBC : 14.3. Patient started on Vanc and Zosyn. Patient had an allergic reaction to the Zosyn and was given benadryl. Patient's antibiotics switched to Aztreonam and Clindamycin. Patient had one episode of seizures in the ED. Patients home seizure medications were brought in from [place] and given to him. Patient's blood cultures and urine cultures were all negative. White count trended down. Patient remained afebrile. Patient finished 4 day course of antibiotic Aztreonam. Patient to finish 5 day course of Clindamycin at [place]. Vitals stable. After speaking with PCP, some concern for patient after episode of hematemesis. GI, Dr. Rose consulted. Hemoglobin remained stable throughout his stay. Due to his scoliosis and low suspicion of active bleeding, scope not recommended at this time. Patient will follow up with his outpatient GI, Dr. Castro. Patient will have a repeat CBC in one week. Patients home feeds of Vital 1.5, 60cc hour, 25 cc/hour free flushes will be resumed. Aspiration precautions. Dietary consult will be followed up as an outpatient per PCP. CXR: no gross infiltrate Date of Discharge: 10/19/17 Minutes to complete discharge: 38 Discharge Summary Reason For Visit: SEPSIS, PNEUMONIA, SHORTNESS OF BREATH Current Active Problems Anemia (Acute) Coffee ground emesis (Acute) Prolonged Q-T interval on ECG (Acute) Seizure (Acute) Drug allergy, antibiotic (Chronic) Condition: Improved - Instructions Diet, Activity, Other Instructions: You presented to the Emergency Department because you were short of breath and feverish. This was believed to be due to a pneumonia from aspirating. we treated your pneumonia with antibiotics. You have not had any more fevers and your shortness of breath improved. You will continue to take Clindamycin for 1 more day to complete a 5 day treatment of your pneumonia. Please take 300 mg of Clindamycin tonight and three doses of 300mg tomorrow to complete treatment. Please follow up with Dr. Gusman. Please follow up with your GI doctor, Dr. Castro, as needed for continued treatment. Repeat CBC in one week, most recent Hgb/Hct 9.6/29.5. Please continue your home medications as prescribed. Please return to the ED if you have any worsening of symptoms, chest pain, shortness of breath, fevers, or vomiting. continue Vital feeds 1.5 at 60 cc/hr for 17 hours with free water infusion of 25cc/hr. Please administer additional 300 cc free water flushes three times per day. Aspiration precautions Please discontinue Reglan BID as the patient's QTc is 562. Disposition: HOME - Home Medications Comprehensive Discharge Medication List: Ambulatory Orders Atenolol [Tenormin] 25 mg PO DAILY 03/03/17 Baclofen 10 mg PO TID 03/03/17 Bisacodyl 10 mg RC TID 03/03/17 Lactobacillus Acidophilus [Acidophilus] 1 each PO BID 03/03/17 Potassium Chloride Oral Soln [KCl Oral Solution] 10 meq PO DAILY 03/03/17 Simethicone 40 mg PO QID 03/03/17 Tiagabine HCl [Gabitril] 4 mg PO TID 03/03/17 Tizanidine HCl 4 mg PO QID 03/03/17 Bacitracin - [Bacitracin Topical Ointment -] 1 applic TP BID 10/16/17 Calcium Carbonate/Vitamin D3 [Oyster Shell 500-Vit D3 200 Tb] 1 each PO TID Clindamycin Topical Solution [Cleocin 1% Topical Solution -] 1 applic TP DAILY 10/16/17 Clotrimazole 1 applic TP TID 10/16/17 Ferrous Sulfate 220 mg PO DAILY 10/16/17 Fluticasone Prop 0.05% Nasal [Flonase -] 1 - 2 spray NS DAILY 10/16/17 Multivit-Minerals/Ferrous Fum [Multivitamin Liquid] 30 ml PO DAILY 10/16/17 Nystatin Powder [Nystop Powder -] 1 applic TP TID 10/16/17 Zinc Gluconate [Zinc] 100 mg PO DAILY 10/16/17 Zinc Oxide 20% Topical Oint 1 applic TP BID 10/16/17 Clindamycin Oral Solution [Cleocin Oral Solution -] 300 mg GT Q8H #80 ml Miscellaneous Medical Supply [Outpatient Order] 1 each ASDIR #1 [facility] [place] This patient is new to me today: No Emergency Visit: No Critical Care patient: No - Discharge Referral Referred to [facility] No
--- NOTE | 2017-10-19 16:35 | PN ---
Progress Note (short form) - Note Progress Note: nad no fevers resting comfortably Vital Signs Period Temp Pulse Resp BP Sys/Bruce Pulse Ox Last 24 Hr 97.2 F-98.2 F 80-110 18-20 132-156/73-96 cor-rrr lungs decreased bs at bases abd firm +gt ext no edema CBC, BMP 10/19/17 10:46 10/18/17 06:15 Microbiology 10/17/17 08:09 Sputum - Expectorated Gram Stain - Final 10/17/17 08:09 Sputum - Expectorated Sputum Culture - Final NORMAL RESPIRATORY SENG 10/15/17 20:41 Blood - Peripheral Venous Blood Culture - Preliminary NO GROWTH OBTAINED AFTER 72 HOURS, INCUBATION TO CONTINUE FOR 2 DAYS. 10/15/17 20:41 Blood - Peripheral Venous Blood Culture - Preliminary NO GROWTH OBTAINED AFTER 72 HOURS, INCUBATION TO CONTINUE FOR 2 DAYS. 10/16/17 14:52 Urine For Antigen Detection Legionella Antigen - Final 10/16/17 14:52 Urine For Antigen Detection Streptococcus pneumoniae Antigen (M - Final 10/15/17 18:37 Urine - Urine - Catheterized Urine Culture - Final NO GROWTH OBTAINED a/p suspected respiratory source of infection difficult exam zosyn allergy ?aspiration day #4 antibiotics plan to complete one more day po clindamycin to total of 5 clinically improved d/w Dr Galvez earlier today Problem List - Problems (1) Pneumonia Code(s): J18.9 - PNEUMONIA, UNSPECIFIED ORGANISM Qualifiers: Aspiration pneumonia type: unspecified Laterality: unspecified laterality Lung location: unspecified part of lung (2) Drug allergy, antibiotic Code(s): Z88.1 - ALLERGY STATUS TO OTHER ANTIBIOTIC AGENTS STATUS
== END 2017-10-19 17:31 | disposition home or self-care (01) | DRG 720 ==
LOC: JER 16:35 → JERBED 23:57 → UNDOADMIN 10-16 00:33 → J8W 10-16 11:15
PROVIDERS: ADMIT Internal Medicine; ATTEND Internal Medicine
DX: A41.9 Sepsis, unspecified organism (principal); J69.0 Pneumonitis due to inhalation of food and vomit; G80.8 Other cerebral palsy; G40.802 Other epilepsy, not intractable, without status epilepticus; F73 Profound intellectual disabilities; K21.9 Gastro-esophageal reflux disease without esophagitis; Z93.1 Gastrostomy status; E05.90 Thyrotoxicosis, unspecified without thyrotoxic crisis or storm; M41.9 Scoliosis, unspecified; Q65.1 Congenital dislocation of hip, bilateral; R06.02 Shortness of breath; R00.0 Tachycardia, unspecified; N17.9 Acute kidney failure, unspecified; E86.0 Dehydration; K59.09 Other constipation; I10 Essential (primary) hypertension; K63.89 Other specified diseases of intestine; Z88.1 Allergy status to other antibiotic agents; R09.02 Hypoxemia; E86.9 Volume depletion, unspecified; D64.9 Anemia, unspecified; K92.0 Hematemesis; D72.829 Elevated white blood cell count, unspecified
CPT/HCPCS: 36415; 71045-TC-FY; 80048; 80053; 81003; 81015; 83735; 84100; 84484; 85025; 85027; 87040; 87070; 87086; 87205; 87899; 93005; 93010; 94640; 99285-25; J0131; J0475; J1644; J7030; J7620

== ENCOUNTER 2018-05-13 20:04 | Inpatient (IN) | payer OTHER ==
[2018-05-13] MEDS ORDERED: BACITRACIN 0.9 GM PACKET ONE (20:35)
--- NOTE | 2018-05-13 21:00 | PDOC ---
History of Present Illness - General Stated Complaint: BREATHING ISSUES Time Seen by Provider: 05/13/18 20:16 History Source: EMS, [facility], Old Records Exam Limitations: Other (non verbal baseline) - History of Present Illness Initial Comments: 05/13/18 20:49 37 yo male pmh MR, congenital quadriplegia, cerebral palsy, seizures, hyperthyroidism, GERD, and pneumonia presents from [facility] after being found unresponsive, O2 in the 80s, Temp of 93 (TM) cold and clammy around 7 40 pm today. Hx attainted from previous notes, EMS and Nurse at [place]. Nurse states after sternal rub, 15 min after episode, pt alert and back to baseline. EMS state on arrival to [place] pt was alert to verbal stimuli with normal vitals. Pt transported to ED without change in vitals. Past History - Past Medical History Allergies/Adverse Reactions: Allergies Allergy/AdvReac Type Severity Reaction Status Date / Time piperacillin [From Zosyn] Allergy Verified 10/15/17 21:56 tazobactam [From Zosyn] Allergy Verified 10/15/17 21:56 Home Medications: Ambulatory Orders Atenolol [Tenormin] 25 mg PO DAILY 03/03/17 Baclofen 10 mg PO TID 03/03/17 Bisacodyl 10 mg RC TID 03/03/17 Lactobacillus Acidophilus [Acidophilus] 1 each PO BID 03/03/17 Potassium Chloride Oral Soln [KCl Oral Solution] 10 meq PO DAILY 03/03/17 Simethicone 40 mg PO QID 03/03/17 Tiagabine HCl [Gabitril] 4 mg PO TID 03/03/17 Tizanidine HCl 4 mg PO QID 03/03/17 Bacitracin - [Bacitracin Topical Ointment -] 1 applic TP BID 10/16/17 Calcium Carbonate/Vitamin D3 [Oyster Shell 500-Vit D3 200 Tb] 1 each PO TID Clindamycin Topical Solution [Cleocin 1% Topical Solution -] 1 applic TP DAILY 10/16/17 Clotrimazole 1 applic TP TID 10/16/17 Ferrous Sulfate 220 mg PO DAILY 10/16/17 Fluticasone Prop 0.05% Nasal [Flonase -] 1 - 2 spray NS DAILY 10/16/17 Multivit-Minerals/Ferrous Fum [Multivitamin Liquid] 30 ml PO DAILY 10/16/17 Nystatin Powder [Nystop Powder -] 1 applic TP TID 10/16/17 Zinc Gluconate [Zinc] 100 mg PO DAILY 10/16/17 Zinc Oxide 20% Topical Oint 1 applic TP BID 10/16/17 Clindamycin Oral Solution [Cleocin Oral Solution -] 300 mg GT Q8H #80 ml Miscellaneous Medical Supply [Outpatient Order] 1 each ASDIR #1 misc Pantoprazole Suspension [Protonix Packets For Oral Suspension -] 40 mg GT DAILY #30 packet 10/19/17 Anemia: No COPD: No DVT: No Dementia: Yes GI Disorders: Yes (GERD) Seizures: Yes Thyroid Disease: Yes - Surgical History Abdominal Surgery: Yes (feeding tube) - Immunization History Immunization Up to Date: Yes - Suicide/Smoking/Psychosocial Hx Smoking History: Never smoked Have you smoked in the past 12 months: No Hx Alcohol Use: No Drug/Substance Use Hx: No Substance Use Type: None Hx Substance Use Treatment: No Review of Systems - Review of Systems Able to Perform ROS?: No (non verbal) *Physical Exam - Physical Exam General Appearance: Yes: Nourished. No: Apparent Distress Respiratory/Chest: positive: Lungs Clear Cardiovascular: positive: Regular Rhythm, Regular Rate, S1, S2. negative: Edema , JVD, Murmur Vascular Pulses: Dorsalis-Pedis (R): 3+, Doralis-Pedis (L): 3+ Gastrointestinal/Abdominal: positive: Normal Bowel Sounds, Distended (unaware if this is pts normal abdomen ). negative: Guarding, Rebound, Tenderness Extremity: positive: Other (contracted) Integumentary: positive: Normal Color, Dry, Warm Neurologic: positive: Alert (opens eyes spontaneously) ED Treatment Course - LABORATORY CBC & Chemistry Diagram: 05/13/18 21:34 05/13/18 21:34 Medical Decision Making - Medical Decision Making 05/13/18 21:22 Spoke with Anand munson stated EMS called due to pt found unresponsive, cold/ clamy, O2 in the 80s and 93 temperature (TM temp) around 7 40 pm. Vitals from yesterday at [facility]: 97.2 temp 77 HR 97% O2 RA 104/67 BP No recent changes in pts health, received all medications around 5 pm including anticonvulsant Gabitril 4mg Spoke with Mother who is aware pt is in the ER and states pt has had a similar presentation in the past attributed to seizure. Will order CBC, CMP, Trop, EKG, CXR CT abdomen pelvis ordered for distension, unsure of past appearance of abdomen 05/14/18 00:30 Pt likely had a siezure and became post ictal. CMP pending along with CT abdomen pelvis S/O to night team for further care
--- NOTE | 2018-05-13 21:30 | PDOC ---
Attending Attestation - HPI HPI: 05/13/18 21:31 The patient is a 37 year old male, with a significant PMH of mental retardation , congenital quadriplegia, cerebral palsy, seizures, hyperthyroidism, GERD, and pneumonia, who was BIBA to the emergency department from [place]. As per the nursing the staff at [place], the patient was found unresponsive around 7:40 tonight. They state that the patients oxygen levels were around 80%, a Tmax of 93, and was cold and clammy to touch. Upon receiving a sternal rub, the patient became alert and awake, but is nonverbal. The patient denies chest pain, shortness of breath, headache and dizziness. Denies fever, chills, nausea, vomit, diarrhea and constipation. Denies dysuria, frequency, urgency and hematuria. Allergies: NKA Social history: None reported - Physicial Exam PE: 05/13/18 21:31 GENERAL: Non verbal, alert and awake. HEAD: No signs of trauma EYES: PERRLA, EOMI, sclera anicteric, conjunctiva clear ENT: Auricles normal inspection, hearing grossly normal, nares patent. NECK: Normal ROM, supple LUNGS: Breath sounds equal, clear to auscultation bilaterally. No wheezes, and no crackles HEART: Regular rate and rhythm, normal S1 and S2, no murmurs, rubs or gallops ABDOMEN: (+) distended, nontender. (+)Colostomy and G tube clean, dry and intact with no erythema. No guarding, no rebound. No masses EXTREMITIES: (+) Contractures in all extremities. Normal range of motion, no edema. No clubbing or cyanosis. No cords, erythema, or tenderness NEUROLOGICAL: Cranial nerves II through XII grossly intact. SKIN: Warm, Dry, normal turgor, no rashes or lesions noted. <Aliza Brown - Last Filed: 05/13/18 21:30> - Resident Resident Name: Regan Hernandez - ED Attending Attestation I have performed the following: I have examined & evaluated the patient, The case was reviewed & discussed with the resident, I agree w/resident's findings & plan, Exceptions are as noted - Medical Decision Making 05/13/18 21:30 A portion of this note was documented by scribe services under my direction. I have reviewed the details of the note, within reason, and agree with the documentation with the following case summary and management plan written by me. Patient treated in the ED. Nursing notes are reviewed and incorporated into the medical decision-making. Vital signs reviewed. Peripheral IV access obtained by the nurse, laboratory studies are drawn and sent, reviewed and interpreted by myself. 37-year-old male with past medical history of profound MR, nonverbal, noncommunicative at baseline, tactile cerebral palsy, seizure disorder, thyroid disorder, scoliosis, bilateral hip dislocation, GERD, G2 presents with a single episode of unresponsiveness. The patient is unable to provide a review systems. History was obtained from my resident after speaking with the jail. The staff went to check up on the patient. The patient was unable to be aroused. Was noted to have reportedly and oxygen saturation the mid 80s and a temporal temperature of 93. The patient was given a sternal rub and returned back to baseline. The patient overall appears nontoxic. However, the patient does have a distended abdomen. Concerning be possible that the patient either was sleeping or was postictal from a seizure. We'll obtain labs to evaluate for secondary causes. However, we'll obtain a nabs and pelvis CT to rule out bowel structure. If the workup is negative, will touch base with the jail since the patient may potentially be able to return back to [place]. 05/14/18 03:49 CBC, BMP 05/13/18 21:34 05/14/18 00:13 CMP Sodium 130 mmol/L (136-145) L 05/14/18 00:13 Potassium 2.5 mmol/L (3.5-5.1) L* 05/14/18 00:13 Chloride 77 mmol/L (98-107) L 05/14/18 00:13 Carbon Dioxide 51 mmol/L (21-32) H 05/14/18 00:13 Anion Gap 2 MMOL/L (8-16) L 05/14/18 00:13 BUN 72 mg/dL (7-18) H 05/14/18 00:13 Creatinine 0.7 mg/dL (0.55-1.3) 05/14/18 00:13 Creat Clearance w eGFR > 60 (>60) 05/14/18 00:13 Random Glucose 105 mg/dL (74-106) 05/14/18 00:13 Calcium 9.5 mg/dL (8.5-10.1) 05/14/18 00:13 Phosphorus 3.7 mg/dL (2.5-4.9) 05/14/18 00:13 Magnesium 4.0 mg/dL (1.8-2.4) H 05/14/18 00:13 Total Bilirubin 0.5 mg/dL (0.2-1) 05/14/18 00:13 AST 85 U/L (15-37) H 05/14/18 00:13 ALT 135 U/L (13-61) H 05/14/18 00:13 Alkaline Phosphatase 119 U/L (45-117) H 05/14/18 00:13 Creatine Kinase 307 U/L (26-308) 05/14/18 00:13 Creatine Kinase Index 0.2 % (0.0-5.0) 05/13/18 21:34 CK-MB (CK-2) < 1.0 ng/mL (0.5-3.6) 05/13/18 21:34 Troponin I < 0.02 ng/ml (0.00-0.05) 05/14/18 00:13 Total Protein 8.8 g/dl (6.4-8.2) H 05/14/18 00:13 Albumin 3.9 g/dl (3.4-5.0) 05/14/18 00:13 Lipase 153 U/L (73-393) 05/14/18 00:13 Potassium is 2.5. Potassium IV repletion ordered. Pt also with likely partial bowel obstruction. Will place consultation order for surgery. Admit. <Rohit Ibarra - Last Filed: 05/14/18 03:50> Heart Score/ECG Review #1 ECG reviewed & interpreted by me at: 21:30 05/13/18 21:34 NSR 84, no std/joe, normal axis, normal intervals, VW TWI, QTC 441 msec <Rohit Ibarra - Last Filed: 05/14/18 03:50> Attestations - Attestations 05/13/18 21:31 Documentation prepared by Aliza Brown, acting as medical office specialist for Rohit Ibarra MD. <Aliza Brown - Last Filed: 05/13/18 21:30>
[2018-05-13 21:56] VITALS: BMI 19.5
[2018-05-13 22:06] LABS: BASO % 0.5 % (0-2.0); EOS % 5.9 % (0-4.5); HEMATOCRIT 38.3 % (35.4-49); HEMOGLOBIN 12.7 GM/dL (11.7-16.9); MCH 25.4 pg (25.7-33.7); MCHC 33.2 g/dl (32.0-35.9); MEAN CELL VOLUME 76.5 fl (80-96); MEAN PLT VOLUME 7.5 fl (7.5-11.1); MONO % 12.3 % (3.8-10.2); NEUT % 51.3 % (42.8-82.8); PLATELET COUNT 304 K/MM3 (134-434); RBC 5.01 M/mm3 (4.00-5.60); RDW 14.5 % (11.9-15.9); WHITE BLOOD COUNT 8.6 K/mm3 (4.0-10.0)
[2018-05-13 22:33] LABS: ALK PHOS 124 U/L (45-117); ANION GAP 8 MMOL/L (8-16); BILIRUBIN,TOTAL 0.6 mg/dL (0.2-1); BLOOD UREA NITROGEN 72 mg/dL (7-18); CALCIUM 9.5 mg/dL (8.5-10.1); CHLORIDE 79 mmol/L (98-107); CO2 > 45 mmol/L (21-32); CREATININE 0.8 mg/dL (0.55-1.3); GLUCOSE,RANDOM 58 mg/dL (74-106); SGOT/AST 89 U/L (15-37); SGPT/ALT 139 U/L (13-61); SODIUM 132 mmol/L (136-145); TOT PROT 9.1 g/dl (6.4-8.2)
[2018-05-13 22:45] LABS: POTASSIUM 2.5 mmol/L (3.5-5.1)
[2018-05-13] MEDS ORDERED: KCL 10 MEQ IVPB 10 MEQ/100 ML INFUS.BAG IVPB SCH (23:00)
--- NOTE | 2018-05-14 01:43 | PDOC ---
*Physical Exam - Vital Signs Last Vital Signs Temp Pulse Resp BP Pulse Ox 97.7 F 88 18 96/68 98 05/13/18 21:51 05/13/18 21:51 05/13/18 21:51 05/13/18 21:51 05/13/18 21:51 ED Treatment Course - LABORATORY CBC & Chemistry Diagram: 05/13/18 21:34 05/14/18 00:13 - ADDITIONAL ORDERS Additional order review: Laboratory Results 05/13/18 21:34 Sodium 132 L Potassium 2.5 L* Chloride 79 L Carbon Dioxide > 45 H Anion Gap 8 BUN 72 H Creatinine 0.8 Creat Clearance w eGFR > 60 Random Glucose 58 L Calcium 9.5 Total Bilirubin 0.6 AST 89 H ALT 139 H Alkaline Phosphatase 124 H Creatine Kinase 346 H Creatine Kinase Index 0.2 CK-MB (CK-2) < 1.0 Troponin I < 0.02 Total Protein 9.1 H Albumin 4.0 05/13/18 21:34 RBC 5.01 MCV 76.5 L MCHC 33.2 RDW 14.5 D MPV 7.5 Neutrophils % 51.3 D Lymphocytes % 30.0 D Monocytes % 12.3 H Eosinophils % 5.9 H D Basophils % 0.5 Medical Decision Making - Medical Decision Making Patient signed out to me pending CTAP CTAP shows bowel wall thickening and distension possibly reflecting obstruction. Will admit patient for sbo once chem returns Chem came back showing hypokalemia - Will replete through his IV. *DC/Admit/Observation/Transfer Diagnosis at time of Disposition: SBO (small bowel obstruction) - Discharge Dispostion Condition at time of disposition: Guarded Decision to Admit order: Yes - Referrals - Patient Instructions - Post Discharge Activity
[2018-05-14 03:38] LABS: CREATININE 0.7 mg/dL (0.55-1.3); POTASSIUM 2.5 mmol/L (3.5-5.1)
[2018-05-14 03:40] LABS: ALBUMIN 3.9 g/dl (3.4-5.0)
--- NOTE | 2018-05-14 04:41 | HP ---
CHIEF COMPLAINT: SBO PCP: Dr. Gusman ([facility]) HISTORY OF PRESENT ILLNESS: Pt is non-verbal. History taking according to ED documentation. 37M w/ pmhx of MR, congenital quadriplegia, infantile cerebral palsy, seizure d/ o, hyperthyroidism, scoliosis, GERD was sent to the ED after being found unresponsive, desatting in the 80s, temp of 93 cold and clammy at 740pm today. Per ED notes, nurse performed sternal rub after which pt became alert to verbal stimuli and back to baseline after 15 min with normal vital signs. Pt was transported to ED without change in vitals. ER course was notable for: (1) BP 96/68, rest of vitals stable upon arrival; K 2.5, AST/ALT 85/135, Alk P 119, Trop neg x1 (2) KCl 10 mEq IVPB ordered (3) CXR ordered; CTAP ([place] read): percutaneous enterostomy tube inflated in a segment of mid-epigastric small bowel. some mild thickening and distension of associated bowel loop possibly reflecting partial bowel obstruction. Recent Travel: None PAST MEDICAL HISTORY: Mental Retardation Congenital Quadriplegia Infantile cerebral palsy Seizure Hyperthyroidism Scoliosis GERD Multiple pneumonias PAST SURGICAL HISTORY: Social History: None reported Family History: None reported Allergies piperacillin [From Zosyn] Allergy (Verified 10/15/17 21:56) tazobactam [From Zosyn] Allergy (Verified 10/15/17 21:56) HOME MEDICATIONS: Home Medications Medication Instructions Recorded Atenolol [Tenormin] 25 mg PO DAILY 03/03/17 Baclofen 10 mg PO TID 03/03/17 Bisacodyl 10 mg RC TID 03/03/17 Lactobacillus Acidophilus 1 each PO BID 03/03/17 [Acidophilus] Potassium Chloride Oral Soln [KCl 10 meq PO DAILY 03/03/17 Oral Solution] Simethicone 40 mg PO QID 03/03/17 Tiagabine HCl [Gabitril] 4 mg PO TID 03/03/17 Tizanidine HCl 4 mg PO QID 03/03/17 Bacitracin - [Bacitracin Topical 1 applic TP BID 10/16/17 Ointment -] Calcium Carbonate/Vitamin D3 1 each PO TID 10/16/17 [Oyster Shell 500-Vit D3 200 Tb] Clindamycin Topical Solution 1 applic TP DAILY 10/16/17 [Cleocin 1% Topical Solution -] Clotrimazole 1 applic TP TID 10/16/17 Ferrous Sulfate 220 mg PO DAILY 10/16/17 Fluticasone Prop 0.05% Nasal 1 - 2 spray NS DAILY 10/16/17 [Flonase -] Multivit-Minerals/Ferrous Fum 30 ml PO DAILY 10/16/17 [Multivitamin Liquid] Nystatin Powder [Nystop Powder -] 1 applic TP TID 10/16/17 Zinc Gluconate [Zinc] 100 mg PO DAILY 10/16/17 Zinc Oxide 20% Topical Oint 1 applic TP BID 10/16/17 Clindamycin Oral Solution [Cleocin 300 mg GT Q8H #80 ml 10/19/17 Oral Solution -] Miscellaneous Medical Supply 1 each ASDIR #1 misc 10/19/17 [Outpatient Order] Pantoprazole Suspension [Protonix 40 mg GT DAILY #30 packet 10/19/17 Packets For Oral Suspension -] REVIEW OF SYSTEMS Unable to obtain PHYSICAL EXAMINATION Vital Signs - 24 hr 05/13/18 05/13/18 05/14/18 21:16 21:51 04:11 Temperature 97.7 F 98.0 F Pulse Rate 88 Pulse Rate [ 84 Apical] Respiratory 20 18 20 Rate Blood Pressure 96/68 Blood Pressure 109/76 [Right Arm] O2 Sat by Pulse 99 98 94 L Oximetry (%) GENERAL: Awake, alert, resting comfortably. Smiling. HEENT: AT/NC. EOMI. Dry mucus membranes. LUNGS: HEART: RRR. Normal S1, S2. ABDOMEN: Contracted and distended. Dislodged enterostomy bag in place; brown stool leakage, redness and erythema surrounding site of ostomy bag. G tube in place. Hypoactive bowel sounds. MUSCULOSKELETAL: Contracted upper extremities b/l. UPPER EXTREMITIES: 2+ pulses, warm, well-perfused. No cyanosis. No clubbing. No peripheral edema. LOWER EXTREMITIES: 2+ pulses, warm, well-perfused. No calf tenderness. No peripheral edema. NEUROLOGICAL: Unable to assess. Laboratory Results - last 24 hr 05/13/18 05/13/18 05/14/18 21:34 21:34 00:13 WBC 8.6 RBC 5.01 Hgb 12.7 Hct 38.3 D MCV 76.5 L MCH 25.4 L MCHC 33.2 RDW 14.5 D Plt Count 304 MPV 7.5 Absolute Neuts (auto) 4.4 Neutrophils % 51.3 D Lymphocytes % 30.0 D Monocytes % 12.3 H Eosinophils % 5.9 H D Basophils % 0.5 Nucleated RBC % 0 Sodium 132 L 130 L Potassium 2.5 L* 2.5 L* Chloride 79 L 77 L Carbon Dioxide > 45 H 51 H Anion Gap 8 2 L BUN 72 H 72 H Creatinine 0.8 0.7 Creat Clearance w eGFR > 60 > 60 Random Glucose 58 L 105 Calcium 9.5 9.5 Phosphorus 3.7 Magnesium 4.0 H Total Bilirubin 0.6 0.5 AST 89 H 85 H ALT 139 H 135 H Alkaline Phosphatase 124 H 119 H Creatine Kinase 346 H 307 Creatine Kinase Index 0.2 0.3 CK-MB (CK-2) < 1.0 < 1.00 Troponin I < 0.02 < 0.02 Total Protein 9.1 H 8.8 H Albumin 4.0 3.9 Lipase 153 CONSULT: Surg- Dr. Fong IMAGING: * CTAP: Percutaneous enterostomy tube inflated in a segment of mid-epigastric small bowel. some mild thickening and distension of associated bowel loop possibly reflecting partial bowel obstruction * CXR: ASSESSMENT/PLAN: 37M w/ pmhx of MR, congenital quadriplegia, infantile cerebral palsy, seizure d/ o, hyperthyroidism, scoliosis, GERD was sent to the ED after being found unresponsive and desaturation in the 80s. #Possible partial SBO -Pt currently stable with normal vital signs. CTAP noted above; remarkable for possible partial bowel obstruction. Not currently showing signs of GI symptoms. -Surg eval needed due to dislodgement of ostomy bag -LR @ 60 for IV hydration -No signs of infection at this time, afebrile, WBC wnl -Hold tube feeds #Transamnitis -Abd U/S ordered -GGT, lipase ordered #Seizure disorder -Cont home meds -Seizure precautions #Hyponatremia -U/A ordered -Urine electrolytes, Sosm, Uosm ordered -LR @ 60, recheck BMP to avoid overcorrection #Hypokalemia -KCl 10 Meq IVPB x3 bags ordered -repeat BMP in AM #Prophylaxis -Lovenox 40 SQ #FEN -LR @ 60 -recheck lytes in AM -NPO dispo -admit to inpatient tele Visit type - Emergency Visit Emergency Visit: Yes ED Registration Date: 05/14/18 Care time: The patient presented to the Emergency Department on the above date and was hospitalized for further evaluation of their emergent condition. - New Patient This patient is new to me today: Yes Date on this admission: 05/16/18 - Critical Care Critical Care patient: No
--- NOTE | 2018-05-14 05:33 | PN ---
Teaching Attending Note Name of Resident: Jessica Shaw ATTENDING PHYSICIAN STATEMENT I saw and evaluated the patient. I reviewed the resident's note and discussed the case with the resident. I agree with the resident's findings and plan as documented. SUBJECTIVE: Seen and examined; please see resident documentation for further historical information. Patient presents from [facility] for unresponsiveness and hypothermia, but these issues had completely resolved by the time he arrived to the ER and he is documented as being back to baseline. He was noted to be normothermic with an acceptable blood pressure but slightly tachy which did resolve with fluids. Found on CT to have possible SBO. As no white count, no fever, and the desat was not witnessed here (Currently 99% on RA in the ER) not inclined to tx for PNA (if he did microaspirate without the signs of infection it would be an aspiration pneumonitis which technically doesn't require tx) and he doesn't have any other signs of infection (UA still pending, though, but is likely colonized). Couldn't complete 10 sys ROS due to underlying mental/medical issues PMH, PSH, Family hx, Social hx reviewed Medication list reviewed; reconciliation pending OBJECTIVE: VS, labs, imaging reviewed NAD, Awake and alert, resting comfortably in bed. Smiling and tracking, nonverbal and at apparent baseline Distended and tympanic abdomen with diminished BS; fluid in the ostomy bag with some gas; poor adhesion around it with leakage. Skin irritation with redness but no warmth or purulence around the area extending to the enterostomy tube Lungs mostly CTAB but limited exam, w/ sym exp RRR s1/2 no mgr Not agitated, interactive, calm Preliminary read CT abdomen and pelvis shows some thinckening and distention of a segment of mid-epigastric small bowel possibly representing SBO ASSESSMENT AND PLAN: Patient presents from [facility] with potential partial SBO. He is hemodynamically stable and afebrile. Incidentally found to be hypokalemic, hyponatremic with some derrangements in his LFTs which are new. 1) Possible partial SBO -Based on clinical exam and imaging. Hold feeds. Not vomiting, etc. so will defer putting tube to suction to general surgery who are following him. Furthermore, we will provide any pain and nausea control. We will monitor for BM. Hydrate with LR@60cc/hr. No s/s infection at this juncture with no white count, no fever. 2) Hypokalemia -ER repeated labs to verify; will recheck this AM after running 30 IV K. -Could be related to #1. If persists consider occult causes of hypokalemia. 3) Hyponatremia -Could be due to process from #1, but of course will consider other issues ( SIADH, etc.) -Checking serum/urine osm and urine na. Will followup. As holding feeds is on low dose isotonic; rechecking labs this AM so will avoid for overcorrection. 4) Transaminitis -Checking GGT, RUQ U/S, and Lipase. Followup results; ddx remains broad at this juncture. 5) Hx MRCP -At neuro baseline, tracking and interactive without agitation 6) Seizures -No issues; continue home meds 7) Hx hyperthyroidism -Check TSH 8) S/P G/J tube and ostomy -Continue with inpatient care; leak with bag noted 9) Elevated BUN/Cr from baseline -Though Cr is wnl, his baseline Cr is very low and this is nearing levels of YOVANI given his new creatinine level. Monitor renal function/UOP closely\ 10) ?Hypothermia -Not seen here; monitor temp 11) ?Desat -Discussed briefly, but I don't see any fever or white count or compelling clinical signs of PNA. Followup final imaging reads and of course can cover empirically if clinical decompensation. FENA -LR@60 -Discussed -NPO -As tolerated; bedbound at rest Code Status is unchanged
[2018-05-14 05:34] LABS: URINE APPEARANCE SLCLOUDY; URINE BILIRUBIN NEGATIVE (<2.0 mg/dL); URINE COLOR YELLOW; URINE GLUCOSE (UA) NEGATIVE (NEGATIVE); URINE KETONE NEGATIVE (NEGATIVE); URINE LEUK ESTERASE NEGATIVE (NEGATIVE); URINE NITRITE NEGATIVE (NEGATIVE); URINE PROTEIN NEGATIVE (NEGATIVE); URINE UROBILINOGEN NEGATIVE mg/dL (0.2-1.0)
[2018-05-14 05:42] LABS: ALK PHOS 119 U/L (45-117); ANION GAP 9 MMOL/L (8-16); BILIRUBIN,TOTAL 0.5 mg/dL (0.2-1); BLOOD UREA NITROGEN 72 mg/dL (7-18); CALCIUM 9.5 mg/dL (8.5-10.1); CHLORIDE 77 mmol/L (98-107); CO2 > 45 mmol/L (21-32); GLUCOSE,RANDOM 105 mg/dL (74-106); LIPASE 152 U/L (73-393); PHOSPHOROUS 3.7 mg/dL (2.5-4.9); SGOT/AST 85 U/L (15-37); SGPT/ALT 135 U/L (13-61); SODIUM 130 mmol/L (136-145); TOT PROT 8.8 g/dl (6.4-8.2)
--- NOTE | 2018-05-14 06:48 | CONSULT ---
Consult Consult Specialty:: General surgery Reason for Consultation:: SBO pattern on CT scan - History of Present Illness History of Present Illness: 37yo male PMH MR, congenital quadriplegia, infantile cerebral palsy, seizure d/o , hyperthyroidism, scoliosis, GERD was sent to the ED after being found unresponsive, desaturating in the 80s, temp of 93 cold and clammy at yesterday. Per ED notes, nurse performed sternal rub after which pt became alert to verbal stimuli and back to baseline after 15 min with normal vital signs. Pt was transported to ED without change in vitals. CT showed SBO pattern. We were called to assess. 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) - Alcohol/Substance Use Hx Alcohol Use: No - Smoking History Smoking history: Never smoked Have you smoked in the past 12 months: No - Social History Usual Living Arrangement: [facility] of : [facility] History of Recent Travel: No Home Medications - Allergies Allergies/Adverse Reactions: Allergies Allergy/AdvReac Type Severity Reaction Status Date / Time piperacillin [From Zosyn] Allergy Verified 10/15/17 21:56 tazobactam [From Zosyn] Allergy Verified 10/15/17 21:56 - Home Medications Home Medications: Ambulatory Orders Atenolol [Tenormin] 12.5 mg GT AM 03/03/17 Baclofen 10 mg GT TID 03/03/17 Bisacodyl 10 mg RC TID 03/03/17 Lactobacillus Acidophilus [Acidophilus] 1 each GT BID 03/03/17 Potassium Chloride Oral Soln [KCl Oral Solution] 10 meq GT DAILY 03/03/17 Tiagabine HCl [Gabitril] 4 mg PO TID 03/03/17 Tizanidine HCl 4 mg PO QID 03/03/17 Bacitracin - [Bacitracin Topical Ointment -] 1 applic TP BID 10/16/17 Clindamycin Topical Solution [Cleocin 1% Topical Solution -] 1 applic TP DAILY 10/16/17 Clotrimazole 1 applic TP TID 10/16/17 Ferrous Sulfate 220 mg GT DAILY 10/16/17 Fluticasone Prop 0.05% Nasal [Flonase -] 1 - 2 spray NS DAILY 10/16/17 Multivit-Minerals/Ferrous Fum [Multivitamin Liquid] 30 ml GT DAILY 10/16/17 Nystatin Powder [Nystop Powder -] 1 applic TP QID 10/16/17 Zinc Gluconate [Zinc] 100 mg GT HS 10/16/17 Zinc Oxide 20% Topical Oint 1 applic TP BID 10/16/17 Clindamycin Oral Solution [Cleocin Oral Solution -] 300 mg GT Q8H #80 ml Pantoprazole Suspension [Protonix Packets For Oral Suspension -] 40 mg GT DAILY #30 packet 10/19/17 Albuterol 0.083% Nebulizer Lupe [Ventolin 0.083%] 1 neb NEB Q4H PRN 05/14/18 Calcium Carbonate/Vitamin D3 [Oystercal-D 500 mg-400 Unit Tb] 1 each PO TID Mag Hydrox/Aluminum Hyd/Simeth [Antacid Anti-Gas Liquid] 355 ml GT Q8H 05/14/18 Simethicone Liquid [Mylicon] 40 mg GT QID 05/14/18 Tiagabine HCl [Gabitril] 4 mg GT TID 05/14/18 Review of Systems - Review of Systems Constitutional: denies: Chills, Fever Eyes: denies: Blind Spots, Recent Change in Vision HENT: reports: Difficult Swallowing. denies: Ear Discharge, Mouth Swelling Neck: denies: Decreased ROM, Pain on Movement, Tenderness Cardiovascular: denies: Chest Pain, Palpitations Respiratory: denies: Cough, SOB Gastrointestinal: reports: Bloating, Constipation. denies: Abdominal Pain Genitourinary: denies: Discharge, Dysuria Breasts: reports: No Symptoms Reported. denies: Pain Integumentary: denies: Bruising, Change in Color Neurological: reports: Confusion. denies: Syncope, Tremors Endocrine: denies: Unexplained Weight Gain, Unexplained Weight Loss Hematology/Lymphatic: denies: Easily Bruised, Excessive Bleeding Psychiatric: denies: Anxiety, Depression Physical Exam Vital Signs: Vital Signs Temperature 98.0 F 05/14/18 04:11 Pulse Rate 84 05/14/18 04:11 Respiratory Rate 20 05/14/18 04:11 Blood Pressure 109/76 05/14/18 04:11 O2 Sat by Pulse Oximetry (%) 94 L 05/14/18 04:11 Constitutional: Yes: No Distress, Calm, Thin Eyes: Yes: Conjunctiva Clear, EOM Intact HENT: Yes: Atraumatic, Normocephalic Neck: Yes: Supple, Trachea Midline Cardiovascular: Yes: Regular Rate and Rhythm, S1, S2 Respiratory: Yes: Regular, CTA Bilaterally Gastrointestinal: Yes: Normal Bowel Sounds, Soft, Distention, Other (PEG functional). No: Abdomen, Obese, Ascites, Tenderness, Tenderness, Epigastrium, Tenderness, Rebound ...Rectal Exam: Yes: Sphincter Tone Normal. No: Mass Renal/: No: CVA Tenderness - Left, CVA Tenderness - Right Breast(s): No: Mass, Nipple Inversion Musculoskeletal: No: Muscle Pain, Muscle Weakness Extremities: Yes: Other (contracted). No: Cool, Cyanosis Edema: No Peripheral Pulses WNL: Yes Integumentary: No: Incision, Jaundice, Venous Stasis Changes Wound/Incision: Yes: Clean/Dry, Well Approximated Neurological: Yes: Alert, Confusion, Weakness. No: Oriented Psychiatric: Yes: Alert. No: Oriented Labs: CBC, BMP 05/13/18 21:34 05/14/18 00:13 Imaging - Results Cat Scan: Report Reviewed, Image Reviewed Problem List - Problems (1) SBO (small bowel obstruction) Assessment/Plan: 37yo male MMP with chronic constipation and PEG which is functional, Now passing large BM, No acute surgical intervention Medical managemnt diet as tolerted Manual disimpaction as needed bowel regimen Thank you for the opportunity to participate in the care of this patient. Code(s): K56.609 - UNSP INTESTNL OBST, UNSP TO PARTIAL VERSUS COMPLETE OBST (2) Prolonged Q-T interval on ECG Code(s): R94.31 - ABNORMAL ELECTROCARDIOGRAM [ECG] [EKG] (3) Seizure Code(s): R56.9 - UNSPECIFIED CONVULSIONS (4) Hyperthyroidism Code(s): E05.90 - THYROTOXICOSIS, UNSP WITHOUT THYROTOXIC CRISIS OR STORM (5) Profound mental retardation Code(s): F73 - PROFOUND INTELLECTUAL DISABILITIES (6) Quadriplegic infantile cerebral palsy Code(s): G80.8 - OTHER CEREBRAL PALSY (7) Sacral decubitus ulcer, stage III Code(s): L89.153 - PRESSURE ULCER OF SACRAL REGION, STAGE 3
[2018-05-14] MEDS ORDERED: ALBUTEROL SO4 0.083% IH SOL 2.5 MG/3 ML VIAL.NEB. NEB PRN (06:52)
[2018-05-14] MEDS ORDERED: TIAGABINE HCL 4 MG PO SCH (07:00)
[2018-05-14] MEDS ORDERED: KCL 10 MEQ IVPB 10 MEQ/100 ML INFUS.BAG IVPB ONE ×2 (07:21→13:30)
[2018-05-14] MEDS: LACTATED RINGERS SOLUTION 1,000 ML/1,000 ML INFUS.BAG IV SCH (07:38)
[2018-05-14] MEDS: KCL 10 MEQ IVPB 10 MEQ/100 ML INFUS.BAG IVPB SCH ×7 (07:38→23:10)
[2018-05-14 07:44] LABS: BASO % 1.2 % (0-2.0); EOS % 4.5 % (0-4.5); HEMATOCRIT 33.9 % (35.4-49); HEMOGLOBIN 11.6 GM/dL (11.7-16.9); MCH 25.6 pg (25.7-33.7); MCHC 34.2 g/dl (32.0-35.9); MEAN CELL VOLUME 74.7 fl (80-96); MEAN PLT VOLUME 7.9 fl (7.5-11.1); MONO % 7.4 % (3.8-10.2); NEUT % 67.9 % (42.8-82.8); PLATELET COUNT 309 K/MM3 (134-434); RBC 4.54 M/mm3 (4.00-5.60); WHITE BLOOD COUNT 9.3 K/mm3 (4.0-10.0)
[2018-05-14 08:53] LABS: ALBUMIN 3.9 g/dl (3.4-5.0); ALK PHOS 119 U/L (45-117); ANION GAP 12 MMOL/L (8-16); BILIRUBIN,TOTAL 0.6 mg/dL (0.2-1); BLOOD UREA NITROGEN 66 mg/dL (7-18); CALCIUM 9.3 mg/dL (8.5-10.1); CHLORIDE 78 mmol/L (98-107); CO2 41 mmol/L (21-32); CREATININE 0.5 mg/dL (0.55-1.3); GAMMA GLUTAMYL TRANSPEPTIDASE 271 U/L (5-85); GLUCOSE,RANDOM 90 mg/dL (74-106); LIPASE 107 U/L (73-393); SGOT/AST 78 U/L (15-37); SGPT/ALT 127 U/L (13-61); SODIUM 131 mmol/L (136-145); TOT PROT 8.8 g/dl (6.4-8.2)
[2018-05-14 09:04] LABS: POTASSIUM 2.7 mmol/L (3.5-5.1)
[2018-05-14] MEDS: POTASSIUM CHLORIDE ORAL LIQUID 20 MEQ/15 ML GT SCH (09:10)
[2018-05-14] MEDS: LACTOBACILLUS ACIDOPHILUS 1 TABLET GT SCH ×2 (09:10→23:10)
[2018-05-14] MEDS ORDERED: KCL 10 MEQ IVPB 20 MEQ/200 ML INFUS.BAG IVPB ONE (09:13)
[2018-05-14] MEDS: FERROUS SO4 325 MG TABLET (FP) NR SCH (09:15)
[2018-05-14] MEDS: CALCIUM 500MG/VIT-D 200 UNITS COMBO TABLET (FP) PO SCH ×3 (09:16→23:10)
[2018-05-14] MEDS: MULTIVIT-MINERALS ORAL LIQUID GT SCH (09:16)
[2018-05-14] MEDS: MAG HYDROX/AL HYDROX/SIMETH 30 ML UNIT-DOSE CUP GT SCH ×3 (09:16→23:09)
[2018-05-14] MEDS: BACLOFEN 10 MG TABLET (FP) GT SCH ×3 (09:16→23:10)
[2018-05-14] MEDS: ATENOLOL 25 MG TABLET (FP) GT SCH (09:16)
[2018-05-14] MEDS ORDERED: POTASSIUM CHLORIDE 20 MEQ PREMIX IVPB 100 ML IVPB ONE (09:27)
[2018-05-14] MEDS ORDERED: MULTIVIT-MINERALS ORAL LIQUID GT SCH (10:00)
[2018-05-14] MEDS ORDERED: TIZANIDINE HCL 4 MG TABLET PO SCH (10:00)
[2018-05-14] MEDS ORDERED: SIMETHICONE 40 MG/0.6 ML BOTTLE GT SCH ×2 (10:00)
[2018-05-14] MEDS ORDERED: ENOXAPARIN NA (PORCINE) 40 MG/0.4 ML DISP.SYRIN SQ SCH (10:00)
--- NOTE | 2018-05-14 11:33 | EKG ---
Test Reason : Blood Pressure : / mmHG Vent. Rate : 084 BPM Atrial Rate : 084 BPM P-R Int : 148 ms QRS Dur : 076 ms QT Int : 374 ms P-R-T Axes : 070 043 063 degrees QTc Int : 441 ms POOR DATA QUALITY, INTERPRETATION MAY BE ADVERSELY AFFECTED NORMAL SINUS RHYTHM BIATRIAL ENLARGEMENT ABNORMAL ECG Confirmed by MADELINE PADGETT MD ([id number]) on 05/14/2018 11:33:33 AM Referred By: Confirmed By:MADELINE PADGETT MD
[2018-05-14] MEDS: HEPARIN NA (PORCINE) 5,000 UNITS/ML 1ML VIAL SQ SCH ×2 (13:47→23:10)
[2018-05-14] MEDS ORDERED: HEPARIN NA (PORCINE) 5,000 UNITS/ML 1ML VIAL ONE (13:48)
[2018-05-14] MEDS: CLOTRIMAZOLE 1% 10 ML TOPICAL SOLUTION TP SCH (14:04)
[2018-05-14] MEDS: ZINC OXIDE 20% TOPICAL OINTMENT 30 GM TUBE TP SCH (14:04)
[2018-05-14] MEDS: NYSTATIN POWDER 100,000 UNITS/GM - 15 GM TOPICAL POWDER TP SCH (14:04)
[2018-05-14] MEDS ORDERED: BACLOFEN 10 MG TABLET (FP) ONE (14:06)
--- NOTE | 2018-05-14 14:39 | PN ---
Teaching Attending Note Name of Resident: Papi Zambrano ATTENDING PHYSICIAN STATEMENT I saw and evaluated the patient. I reviewed the resident's note and discussed the case with the resident. I agree with the resident's findings and plan as documented. SUBJECTIVE: Not able to obtain hx. OBJECTIVE: NAD, Awake , comfortable , calm CV: RRR Lungs: poor effort , not able to assess Ext: No edema ABd: distended, soft, deformed , PEG in with surrounding erythema. RLQ fistula with erythematous excoriated skin with colostomy bag off. tympanic . + BS ASSESSMENT AND PLAN: Unfortunate 37 y/o man with h/o MR, congenital quadriplegia , cerebral palsy, seizure disorder, Hip dislocation, GERD, thyroid disease , scoliosis, high out put entero-cutaneous fistula, PEG tube insertion and other medical problems who presented form [place] with hypoxia and decreased responsiveness. 1- Hypxia: resolved at presentation. might have been due to an aspiration event. No evidence of infiltrate, or leukocytosis or fever . No evidence of PNA sat O2 Nl on RA 2- Hypokalemia: was repleted with IV K. will repeat level after infusion and cont to replete 3- Abd distention. no signs of SBO on CT scan. TF in place and functional. seen by sx and no need for intervention will resume TF. changed IVF to NS + Kcl this am, will dc after resuming TF 4-Seizure do: Tiagabine brought from [place] as we don't carry 5- Transaminitis: fatty liver on US . hepatocelluar pattern. no dilated bile ducts. will follow 6- hyponatremia mild. resume TF . possible return to [place] tomorrow , if electrolyte imbalance improve. will call Dr. islas
[2018-05-14] MEDS: BISACODYL 10 MG SUPP.RECT RC SCH (15:09)
--- NOTE | 2018-05-14 18:03 | PN ---
Physical Exam: SUBJECTIVE: Patient seen and examined at bedside. BIBA to ED from [place] due to desaturation to 80's. OBJECTIVE: Vital Signs Period Temp Pulse Resp BP Sys/Bruce Pulse Ox Last 24 Hr 97.3 F-98.6 F 81-93 18-27 96-111/68-92 94-100 GENERAL: Nonverbal. Contracted HEAD: NC/AT EYES: EOMI Sclera Clear ENT: Mouth Open, no bandar or thrush appreciated on tongue. NECK: Trachea midline, full range of motion, supple. LUNGS: Scattered Rhonchi HEART: RRR S1S2 ABDOMEN: G Tube in place. Entero-cutaneous fistula EXTREMITIES: Conracted all 4 extremities NEUROLOGICAL: MR at baseline. SKIN: Irritiation at PEG Site, Colostomy Site. Laboratory Results - last 24 hr 05/13/18 05/13/18 05/14/18 21:34 21:34 00:13 WBC 8.6 RBC 5.01 Hgb 12.7 Hct 38.3 D MCV 76.5 L MCH 25.4 L MCHC 33.2 RDW 14.5 D Plt Count 304 MPV 7.5 Absolute Neuts (auto) 4.4 Neutrophils % 51.3 D Lymphocytes % 30.0 D Monocytes % 12.3 H Eosinophils % 5.9 H D Basophils % 0.5 Nucleated RBC % 0 Sodium 132 L 130 L Potassium 2.5 L* 2.5 L* Chloride 79 L 77 L Carbon Dioxide > 45 H > 45 H Anion Gap 8 9 BUN 72 H 72 H Creatinine 0.8 0.7 Creat Clearance w eGFR > 60 > 60 Random Glucose 58 L 105 Serum Osmolality Lactic Acid Calcium 9.5 9.5 Phosphorus 3.7 Magnesium 4.0 H Total Bilirubin 0.6 0.5 GGT AST 89 H 85 H ALT 139 H 135 H Alkaline Phosphatase 124 H 119 H Creatine Kinase 346 H 307 Creatine Kinase Index 0.2 0.3 CK-MB (CK-2) < 1.0 < 1.0 Troponin I < 0.02 < 0.02 Total Protein 9.1 H 8.8 H Albumin 4.0 3.9 Lipase 152 Urine Color Urine Appearance Urine pH Ur Specific [place] Urine Protein Urine Glucose (UA) Urine Ketones Urine Blood Urine Nitrite Urine Bilirubin Urine Urobilinogen Ur Leukocyte Esterase Urine Osmolality Ur Random Sodium Ur Random Chloride 05/14/18 05/14/18 05/14/18 00:13 04:30 05:32 WBC 9.3 RBC 4.54 Hgb 11.6 L Hct 33.9 L MCV 74.7 L MCH 25.6 L MCHC 34.2 RDW 15.0 Plt Count 309 MPV 7.9 Absolute Neuts (auto) 6.3 Neutrophils % 67.9 D Lymphocytes % 19.0 D Monocytes % 7.4 Eosinophils % 4.5 Basophils % 1.2 Nucleated RBC % 0 Sodium Potassium Chloride Carbon Dioxide Anion Gap BUN Creatinine Creat Clearance w eGFR Random Glucose Serum Osmolality Lactic Acid Calcium Phosphorus Magnesium Total Bilirubin GGT AST ALT Alkaline Phosphatase Creatine Kinase Creatine Kinase Index Cancelled CK-MB (CK-2) Cancelled Troponin I Total Protein Albumin Lipase Urine Color Yellow Urine Appearance Slcloudy Urine pH 6.0 Ur Specific [place] 1.017 Urine Protein Negative Urine Glucose (UA) Negative Urine Ketones Negative Urine Blood Negative Urine Nitrite Negative Urine Bilirubin Negative Urine Urobilinogen Negative Ur Leukocyte Esterase Negative Urine Osmolality Ur Random Sodium Ur Random Chloride 05/14/18 05/14/18 05/14/18 05:32 09:20 14:40 WBC RBC Hgb Hct MCV MCH MCHC RDW Plt Count MPV Absolute Neuts (auto) Neutrophils % Lymphocytes % Monocytes % Eosinophils % Basophils % Nucleated RBC % Sodium 131 L Potassium 2.7 L* Chloride 78 L Carbon Dioxide 41 H Anion Gap 12 BUN 66 H Creatinine 0.5 L Creat Clearance w eGFR > 60 Random Glucose 90 Serum Osmolality 300 Lactic Acid Calcium 9.3 Phosphorus Magnesium Total Bilirubin 0.6 GGT 271 H AST 78 H ALT 127 H Alkaline Phosphatase 119 H Creatine Kinase Creatine Kinase Index CK-MB (CK-2) Troponin I Total Protein 8.8 H Albumin 3.9 Lipase 107 Urine Color Urine Appearance Urine pH Ur Specific [place] Urine Protein Urine Glucose (UA) Urine Ketones Urine Blood Urine Nitrite Urine Bilirubin Urine Urobilinogen Ur Leukocyte Esterase Urine Osmolality 614 Ur Random Sodium Ur Random Chloride 05/14/18 05/14/18 05/14/18 14:45 14:45 14:50 WBC RBC Hgb Hct MCV MCH MCHC RDW Plt Count MPV Absolute Neuts (auto) Neutrophils % Lymphocytes % Monocytes % Eosinophils % Basophils % Nucleated RBC % Sodium Potassium 3.3 L Chloride Carbon Dioxide Anion Gap BUN Creatinine Creat Clearance w eGFR Random Glucose Serum Osmolality Lactic Acid 1.4 Calcium Phosphorus Magnesium Total Bilirubin GGT AST ALT Alkaline Phosphatase Creatine Kinase Creatine Kinase Index CK-MB (CK-2) Troponin I Total Protein Albumin Lipase Urine Color Urine Appearance Urine pH Ur Specific [place] Urine Protein Urine Glucose (UA) Urine Ketones Urine Blood Urine Nitrite Urine Bilirubin Urine Urobilinogen Ur Leukocyte Esterase Urine Osmolality Ur Random Sodium 29 L Ur Random Chloride < 11 L Active Medications Generic Name Dose Route Start Last Admin Trade Name Freq PRN Reason Stop Dose Admin Al Hydroxide/Mg Hydroxide 30 ml 05/14/18 07:00 05/14/18 15:25 Mylanta Oral Suspension - GT 30 ml TID TOSIN Administration Albuterol Sulfate 1 amp 05/14/18 06:52 Ventolin 0.083% Nebulizer Soln - NEB Q4H PRN ASTHMA Atenolol 12.5 mg 05/14/18 07:00 05/14/18 09:16 Tenormin - GT 12.5 mg AM TOSIN Administration Baclofen 10 mg 05/14/18 08:30 05/14/18 15:25 Lioresal - GT 10 mg TID TOSIN Administration Bisacodyl 10 mg 05/14/18 10:00 05/14/18 15:09 Dulcolax Suppository - RC Not Given DAILY TOSIN Calcium Carbonate/Cholecalciferol 1 tab 05/14/18 07:00 05/14/18 15:25 Os-Gerald 500+D - PO 1 tab TID TOSIN Administration Clotrimazole 1 applic 05/14/18 07:00 05/14/18 14:04 Clotrimazole TP Not Given TID TOSIN Ferrous Sulfate 325 mg 05/14/18 10:00 05/14/18 09:15 Feosol - NR 325 mg DAILY TOSIN Administration Heparin Sodium (Porcine) 5,000 unit 05/14/18 14:00 05/14/18 13:47 Heparin - SQ 5,000 unit TID TOSIN Administration Lactated Ringer's 1,000 ml in 1,000 mls @ 60 mls/hr 05/14/18 04:45 05/14/18 07:38 Lactated Ringers Solution IV 60 mls/hr ASDIR TOSIN Administration Lactobacillus Acidophilus 1 tab 05/14/18 10:00 05/14/18 09:10 Bacid - GT 1 tab BID TOSIN Administration Multi-Ingredient Ointment 1 applic 05/14/18 10:00 05/14/18 14:04 Zinc Oxide TP Not Given BID TOSIN Non-Formulary Medication 100 mg 05/14/18 22:00 Zinc Gluconate [Zinc] GT HS TOSIN Non-Formulary Medication 1 each 05/14/18 14:00 Patient's Own Med PEG TID TOSIN Nystatin 1 applic 05/14/18 10:00 05/14/18 14:04 Nystop Powder - TP Not Given QID TOSIN Potassium Chloride 10 meq 05/14/18 10:00 05/14/18 09:10 Potassium Chloride Oral Liquid GT 10 meq DAILY TOSIN Administration ASSESSMENT/PLAN: 37M w/ pmhx of MR, congenital quadriplegia, infantile cerebral palsy, seizure d/ o, hyperthyroidism, scoliosis, GERD was sent to the ED after being found unresponsive and desaturation in the 80s. #Possible partial SBO -Pt currently stable with normal vital signs. CTAP noted above; remarkable for possible partial bowel obstruction. Not currently showing signs of GI symptoms. -Surg eval needed due to dislodgement of ostomy bag -LR @ 60 for IV hydration. Dietary Consult. Will resume Tube Feeds Tomorrow, Thursday. Dietary consult to determine starting rate, Titration instructions, goal rate etc. Paperwork from [facility] does not specify starting rate and titration instructions. -No signs of infection at this time, afebrile, WBC wnl -Hold tube feeds until tomorrow, Tuesday May 15, 2018 -Surgery evaluated pt. No surgical intervention required at this juncture. Bowel REgimen. Manual disimpaction as needed. #Transamnitis -Mild diffuse Fatty infiltration of liver -GGT > 200. Lipase WNL. Not consistent with obstruction. Most likely hepatocellular process . #Seizure disorder -Receiving Home Tiagabine via GT -Seizure precautions #Hyponatremia -U/A ordered -Urine electrolytes, Sosm, Uosm ordered -LR @ 60, recheck BMP to avoid overcorrection #Hypokalemia -KCl 10 Meq IVPB x3 bags ordered -Initial K 2.5. Repeat 2.7. K now 3.4. Will give another 2 bags KCL 10 Meq #Prophylaxis -Heparin SQ TID #FEN -LR @ 60 -BMP in am -NPO dispo -admit to inpatient tele Visit type - Emergency Visit Emergency Visit: Yes ED Registration Date: 05/14/18 Care time: The patient presented to the Emergency Department on the above date and was hospitalized for further evaluation of their emergent condition. - New Patient This patient is new to me today: Yes Date on this admission: 05/14/18 - Critical Care Critical Care patient: No - Discharge Referral Referred to [facility] No
[2018-05-14] MEDS ORDERED: DOCUSATE NA 100 MG/10 ML UNIT-DOSE CUPS GT PRN (18:10)
[2018-05-14] MEDS ORDERED: ZINC GLUCONATE 100 MG GT SCH (22:00)
[2018-05-14] MEDS ORDERED: SENNOSIDES 8.8 MG/5 ML BULK BOTTLE PO SCH (22:00)
[2018-05-14] MEDS: TIAGABINE 4 MG PEG SCH (23:09)
[2018-05-15] MEDS: NYSTATIN POWDER 100,000 UNITS/GM - 15 GM TOPICAL POWDER TP SCH ×2 (06:52→10:14)
[2018-05-15] MEDS: CLOTRIMAZOLE 1% 10 ML TOPICAL SOLUTION TP SCH ×2 (06:52→10:14)
[2018-05-15] MEDS: ZINC OXIDE 20% TOPICAL OINTMENT 30 GM TUBE TP SCH ×2 (06:52→11:56)
[2018-05-15] MEDS: TIAGABINE 4 MG PEG SCH (06:54)
[2018-05-15] MEDS: HEPARIN NA (PORCINE) 5,000 UNITS/ML 1ML VIAL SQ SCH (06:54)
[2018-05-15] MEDS: LACTATED RINGERS SOLUTION 1,000 ML/1,000 ML INFUS.BAG IV SCH (06:54)
[2018-05-15] MEDS: CALCIUM 500MG/VIT-D 200 UNITS COMBO TABLET (FP) PO SCH (06:54)
[2018-05-15] MEDS: MAG HYDROX/AL HYDROX/SIMETH 30 ML UNIT-DOSE CUP GT SCH (06:54)
[2018-05-15] MEDS: BACLOFEN 10 MG TABLET (FP) GT SCH (06:54)
[2018-05-15] MEDS: ATENOLOL 25 MG TABLET (FP) GT SCH (06:55)
[2018-05-15 08:43] LABS: HEMOGLOBIN 12.4 GM/dL (11.7-16.9); MCH 25.6 pg (25.7-33.7); MCHC 33.4 g/dl (32.0-35.9); MEAN CELL VOLUME 76.7 fl (80-96); MEAN PLT VOLUME 7.6 fl (7.5-11.1); PLATELET COUNT 288 K/MM3 (134-434); RBC 4.83 M/mm3 (4.00-5.60); RDW 14.7 % (11.9-15.9); WHITE BLOOD COUNT 6.9 K/mm3 (4.0-10.0)
[2018-05-15 08:46] VITALS: BP 113/72; PULSE 92; TEMP 97.8
[2018-05-15 09:17] LABS: ANION GAP 9 MMOL/L (8-16); BLOOD UREA NITROGEN 39 mg/dL (7-18); CALCIUM 9.3 mg/dL (8.5-10.1); CHLORIDE 86 mmol/L (98-107); CO2 38 mmol/L (21-32); CREATININE 0.5 mg/dL (0.55-1.3); GLUCOSE,RANDOM 104 mg/dL (74-106); MAGNESIUM 3.6 mg/dL (1.8-2.4); PHOSPHOROUS 2.8 mg/dL (2.5-4.9); POTASSIUM 3.6 mmol/L (3.5-5.1); SODIUM 134 mmol/L (136-145)
[2018-05-15] MEDS ORDERED: POLYETHYLENE GLYCOL 3350 119 GM BTL PO SCH (10:00)
[2018-05-15] MEDS: POTASSIUM CHLORIDE ORAL LIQUID 20 MEQ/15 ML GT SCH (10:13)
[2018-05-15] MEDS: LACTOBACILLUS ACIDOPHILUS 1 TABLET GT SCH (10:13)
[2018-05-15] MEDS: FERROUS SO4 325 MG TABLET (FP) NR SCH (10:13)
[2018-05-15] MEDS: BISACODYL 10 MG SUPP.RECT RC SCH (10:17)
[2018-05-15] MEDS: MULTIVIT-MINERALS ORAL LIQUID GT SCH (10:17)
[2018-05-15 11:11] LABS: ALBUMIN 3.8 g/dl (3.4-5.0); ALK PHOS 109 U/L (45-117); BILIRUBIN,DIRECT 0.2 mg/dL (0.0-0.2); BILIRUBIN,TOTAL 0.8 mg/dL (0.2-1); SGOT/AST 49 U/L (15-37); SGPT/ALT 104 U/L (13-61); TOT PROT 8.4 g/dl (6.4-8.2)
--- NOTE | 2018-05-15 12:39 | DS ---
Physical Exam: SUBJECTIVE: Patient seen and examined at bedside. No acute events overnight. Afebrile, no leukocytosis. OBJECTIVE: Vital Signs Period Temp Pulse Resp BP Sys/Bruce Pulse Ox Last 24 Hr 97.8 F-98 F 81-92 18-20 108-113/72-92 98 PHYSICAL EXAM GENERAL: Nonverbal. Contracted HEAD: NC/AT EYES: EOMI Sclera Clear ENT: Mouth Open, no bandar or thrush appreciated on tongue. NECK: Trachea midline, full range of motion, supple. LUNGS: Coarse breath sounds HEART: RRR S1S2 ABDOMEN: Peg in place. Colostomy bag. Tympanic to percussion. Distended, no guarding or rigidity. Hypoactive bowel sounds. EXTREMITIES: Contracted all 4 extremities NEUROLOGICAL: MR at baseline. SKIN: erythema around J tube site, ostomy bag. LABS Laboratory Results - last 24 hr 05/14/18 05/14/18 05/14/18 14:40 14:45 14:45 WBC RBC Hgb Hct MCV MCH MCHC RDW Plt Count MPV Sodium Potassium 3.3 L Chloride Carbon Dioxide Anion Gap BUN Creatinine Creat Clearance w eGFR Random Glucose Lactic Acid 1.4 Calcium Phosphorus Magnesium Total Bilirubin Direct Bilirubin AST ALT Alkaline Phosphatase Total Protein Albumin Urine Osmolality 614 Ur Random Sodium Ur Random Potassium Ur Random Chloride 05/14/18 05/15/18 05/15/18 14:50 08:20 08:20 WBC 6.9 RBC 4.83 Hgb 12.4 Hct 37.0 MCV 76.7 L MCH 25.6 L MCHC 33.4 RDW 14.7 Plt Count 288 MPV 7.6 Sodium 134 L Potassium 3.6 Chloride 86 L Carbon Dioxide 38 H Anion Gap 9 BUN 39 H Creatinine 0.5 L Creat Clearance w eGFR > 60 Random Glucose 104 Lactic Acid Calcium 9.3 Phosphorus 2.8 Magnesium 3.6 H Total Bilirubin 0.8 Direct Bilirubin 0.2 AST 49 H ALT 104 H Alkaline Phosphatase 109 Total Protein 8.4 H Albumin 3.8 Urine Osmolality Ur Random Sodium 29 L Ur Random Potassium 45.8 Ur Random Chloride < 11 L HOSPITAL COURSE: Date of Admission:05/14/18 Pt is a 37 y/o M w/ a pmhx of MR, congenital quadriplegia, infantile cerebral palsy, seizure d/o, hyperthyroidism, scoliosis, and GERD who was sent to the ED from [facility] after being found unresponsive and desaturating to the 80s. Pt remained afebrile and did not have any leukocytosis on labs. Pt underwent a CTAP for possible SBO. CTAP did not reveal any SBO. Surgery was consulted and evaluated pt and did not recommend any surgical intervention as pt had a large bowel movement. U/S abdomen was also performed due to elevated liver enzymes. U/ S revealed diffuse fatty infiltration. Furthermore, pt was hypokalemic (2.5) on admission and potassium was repleated accordingly. Pt d/c back to [facility]. Date of Discharge: 05/15/18 Minutes to complete discharge: 35 Discharge Summary Reason For Visit: SMALL BOWEL OBSTRUCTION Condition: Improved - Instructions Diet, Activity, Other Instructions: You presented to the hospital due decreased oxygen saturation in your blood per [facility]. You're oxygen level in the hospital was in the normal range and you did not have any symptoms of aspiration or blood infection. You were also found to have very elevated liver enzymes, which improved . Please follow up with Dr Gusman at [place] for this. Please continue to take your home medications as prescribed at the [facility]. Need monitoring of K level . please repeat in 2 days avoid constipation resume tube feeding as per pre-admission protocol Please return to the emergency department immediately if you experience the same symptoms including shortness of breath, decreasing blood oxygen levels, chest pain, vomiting or any other abnormal symptoms. Referrals: Dae Gusman Jr [Non Staff, Medical] - Disposition: [facility] F[facility] - Home Medications Comprehensive Discharge Medication List: Ambulatory Orders Atenolol [Tenormin] 12.5 mg GT AM 03/03/17 Baclofen 10 mg GT TID 03/03/17 Bisacodyl 10 mg RC TID 03/03/17 Lactobacillus Acidophilus [Acidophilus] 1 each GT BID 03/03/17 Potassium Chloride Oral Soln [KCl Oral Solution] 10 meq GT DAILY 03/03/17 Tizanidine HCl 4 mg PO QID 03/03/17 Clindamycin Topical Solution [Cleocin 1% Topical Solution -] 1 applic TP DAILY 10/16/17 Clotrimazole 1 applic TP TID 10/16/17 Ferrous Sulfate 220 mg GT DAILY 10/16/17 Fluticasone Prop 0.05% Nasal [Flonase -] 1 - 2 spray NS DAILY 10/16/17 Multivit-Minerals/Ferrous Fum [Multivitamin Liquid] 30 ml GT DAILY 10/16/17 Zinc Gluconate [Zinc] 100 mg GT HS 10/16/17 Zinc Oxide 20% Topical Oint 1 applic TP BID 10/16/17 Albuterol 0.083% Nebulizer Lupe [Ventolin 0.083% Nebulizer Soln -] 1 neb NEB Q4H PRN 05/14/18 Calcium Carbonate/Vitamin D3 [Oystercal-D 500 mg-400 Unit Tb] 1 each PO TID Mag Hydrox/Aluminum Hyd/Simeth [Antacid Anti-Gas Liquid] 355 ml GT Q8H 05/14/18 Simethicone Liquid [Mylicon Liquid -] 40 mg GT QID 05/14/18 Tiagabine HCl [Gabitril] 4 mg GT TID 05/14/18 Lactobacillus Acidophilus [Bacid -] 1 tab GT BID tab 05/15/18 Polyethylene Glycol 3350 [Miralax 119 gm Btl -] 17 gm PO DAILY bottle 05/15/18 This patient is new to me today: No Emergency Visit: Yes ED Registration Date: 05/14/18 Care time: The patient presented to the Emergency Department on the above date and was hospitalized for further evaluation of their emergent condition. Critical Care patient: No - Discharge Referral Referred to [facility] No
--- NOTE | 2018-05-15 12:40 | PN ---
Teaching Attending Note Name of Resident: Papi Zambrano ATTENDING PHYSICIAN STATEMENT I saw and evaluated the patient. I reviewed the resident's note and discussed the case with the resident. I agree with the resident's findings and plan as documented. SUBJECTIVE: no events over night OBJECTIVE: NAD, Awake , comfortable , calm CV: RRR Lungs: poor effort ,clear b/l Ext: No edema ABd: distended, soft, deformed , PEG in with surrounding erythema with white cream on . RLQ fistula with white cream on skin . tympanic . + BS ASSESSMENT AND PLAN: Unfortunate 37 y/o man with h/o MR, congenital quadriplegia , cerebral palsy, seizure disorder, Hip dislocation, GERD, thyroid disease , scoliosis, high out put entero-cutaneous fistula, feeding tube insertion and other medical problems who presented form [place] with hypoxia and decreased responsiveness. 1- Hypxia: resolved at presentation. might have been due to an aspiration event. No evidence of infiltrate, or leukocytosis or fever . No evidence of PNA sat O2 Nl on RA 2- Hypokalemia: resolved. cont his daily supplements through J tube, 3- Abd distention. chronic. no signs of SBO on CT scan. TF in place and functional. seen by sx and no need for intervention 4-Seizure do: Tiagabine TID 5- Transaminitis: fatty liver on US . hepatocelluar pattern. no dilated bile ducts. improved . follow as out pt 6- hyponatremia mild. improved d/w Md at [place]. will dc today
== END 2018-05-15 14:41 | disposition home or self-care (01) | DRG 247 ==
LOC: JER 20:04 → JERBED 05-14 01:43 → J4W 05-14 17:05
PROVIDERS: ADMIT Internal Medicine; ATTEND Internal Medicine
DX: K56.609 Unspecified intestinal obstruction, unspecified as to partial versus complete obstruction (principal); R09.02 Hypoxemia; E87.1 Hypo-osmolality and hyponatremia; R74.0 Nonspecific elevation of levels of transaminase and lactic acid dehydrogenase [LDH]; E05.90 Thyrotoxicosis, unspecified without thyrotoxic crisis or storm; K21.9 Gastro-esophageal reflux disease without esophagitis; G80.8 Other cerebral palsy; M41.9 Scoliosis, unspecified; G40.909 Epilepsy, unspecified, not intractable, without status epilepticus; L89.153 Pressure ulcer of sacral region, stage 3; R94.31 Abnormal electrocardiogram [ECG] [EKG]; F73 Profound intellectual disabilities
CPT/HCPCS: 36415; 71045-TC-FY; 74176-TC; 76705-TC; 80048; 80053; 80076; 81003; 82436; 82550; 82553; 82977; 83605; 83690; 83735; 83930; 83935; 84100; 84132; 84133; 84300; 84484; 85025; 85027; 87040; 87086; 93005; 93010; 99285-25; J0475; J1644

== ENCOUNTER 2018-08-27 15:03 | Inpatient (IN) | payer OTHER ==
[2018-08-27 15:38] VITALS: BMI 19.3
--- NOTE | 2018-08-27 15:42 | PDOC ---
History of Present Illness - General History Source: [facility] Records Exam Limitations: Clinical Condition, Physical Impairment - History of Present Illness Initial Comments: Pt is a 38 yo M, with PMH of CP with severe intellectual disability/non-verbal/ quadriplegia, seizure disorder, hyperthyroidism, G-tube and J-tube placement, and SBO, who is presenting from [place] due to dyspnea and respiratory distress. Pt is accompanied by a caregiver, who states he was recently admitted to [facility] for 2 weeks for pneumonia. Pt was discharged at 11AM this morning, and arrived at [place] with SOB and "desaturating to the 70s" according to the caregiver. [facility] staff immediately called EMS per caregiver. Allergies: Benny PCP: [facility] Social: No cigarette, alcohol, or drug use. No recent travel or sick contacts. Surgical: G-tube, J-tube Family: no relevant history. 08/27/18 17:15 08/27/18 20:05 <Janet Cochran - Last Filed: 08/28/18 01:03> <Alma Delia Kraus - Last Filed: 08/31/18 07:34> - General Chief Complaint: Shortness of Breath Stated Complaint: Shortness of Breath Time Seen by Provider: 08/27/18 15:40 Past History - Travel Traveled outside of the country in the last 30 days: No Close contact w/someone who was outside of country & ill: No - Past Medical History Anemia: Yes (dedra-thalassemia trait,) COPD: No DVT: No Dementia: Yes GI Disorders: Yes (GERD) Seizures: Yes (infantile cerebral palsy quadriplegia. profound mental retardartation,) Thyroid Disease: Yes (hyperthyroidism) - Surgical History Abdominal Surgery: Yes (feeding tube) - Immunization History Immunization Up to Date: Yes - Suicide/Smoking/Psychosocial Hx Smoking History: Never smoked Have you smoked in the past 12 months: No Information on smoking cessation initiated: No Hx Alcohol Use: No Drug/Substance Use Hx: No Substance Use Type: None Hx Substance Use Treatment: No <Janet Cochran - Last Filed: 08/28/18 01:03> <Alma Delia Kraus - Last Filed: 08/31/18 07:34> - Past Medical History Allergies/Adverse Reactions: Allergies Allergy/AdvReac Type Severity Reaction Status Date / Time piperacillin [From Zosyn] Allergy Verified 08/27/18 15:38 tazobactam [From Zosyn] Allergy Verified 08/27/18 15:38 Home Medications: Ambulatory Orders Atenolol [Tenormin] 12.5 mg GT AM 03/03/17 Baclofen 10 mg GT TID 03/03/17 Bisacodyl 10 mg RC TID 03/03/17 Potassium Chloride Oral Soln [KCl Oral Solution] 10 meq GT DAILY 03/03/17 Tizanidine HCl 4 mg PO QID 03/03/17 Clindamycin Topical Solution [Cleocin 1% Topical Solution -] 1 applic TP DAILY 10/16/17 Clotrimazole 1 applic TP TID 10/16/17 Ferrous Sulfate 220 mg GT DAILY 10/16/17 Fluticasone Prop 0.05% Nasal [Flonase -] 1 - 2 spray NS DAILY 10/16/17 Multivit-Minerals/Ferrous Fum [Multivitamin Liquid] 30 ml GT DAILY 10/16/17 Zinc Gluconate [Zinc] 100 mg GT HS 10/16/17 Zinc Oxide 20% Topical Oint 1 applic TP BID 10/16/17 Albuterol 0.083% Nebulizer Lupe [Ventolin 0.083% Nebulizer Soln -] 1 neb NEB Q4H PRN 05/14/18 Calcium Carbonate/Vitamin D3 [Oystercal-D 500 mg-400 Unit Tb] 1 each PO TID Mag Hydrox/Aluminum Hyd/Simeth [Antacid Anti-Gas Liquid] 355 ml GT Q8H 05/14/18 Simethicone Liquid [Mylicon Liquid -] 40 mg GT QID 05/14/18 Tiagabine HCl [Gabitril] 4 mg GT TID 05/14/18 Lactobacillus Acidophilus [Bacid -] 1 tab GT BID tab 05/15/18 Polyethylene Glycol 3350 [Miralax 119 gm Btl -] 17 gm PO DAILY bottle 05/15/18 Review of Systems - Review of Systems Able to Perform ROS?: No (clinical condition) Is the patient limited Bulgarian proficient: No <Janet Cochran - Last Filed: 08/28/18 01:03> *Physical Exam - Vital Signs Last Vital Signs Temp Pulse Resp BP Pulse Ox 98.7 F 124 H 32 H 142/107 H 100 06/07/19 15:03 08/27/18 15:03 08/27/18 15:03 08/27/18 15:03 08/27/18 15:03 - Physical Exam Comments: RR 32, HR 124, BP 142/107, pt afebrile. Pt is thin, diaphoretic, increased WOB. Pt non-verbal, but opens eyes and smiles to staff. 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 Head turned to R side. No midline spinal tenderness, step-offs, or crepitus. Head normocephalic, atraumatic. Eyes PERRLA, EOMI. Oropharynx without erythema or exudates, no LAD b/l. No nasal congestion, hearing intact. Clear heart sounds, S1/S2, no JVD, or heart murmur. Bounding heart sounds. B/l non-pitting edema in feet. Coarse lung sounds with crackles b/l and transmitted upper airway noise. Increased work of breathing. No abdominal or CVA tenderness to palpation, no rebound, no guarding. Abdomen soft, non-distended, and with normoactive bowel sounds. J tube and G tube in place. Excoriations and erythema to b/l medial thighs and abdominal area surrounding J tube. Leakage of fluid from J tube (caregiver states chronic issue). Skin otherwise without jaundice or rash. 08/27/18 15:42 08/27/18 17:06 <Janet Cochran - Last Filed: 08/28/18 01:03> - Vital Signs Last Vital Signs Temp Pulse Resp BP Pulse Ox 98.2 F 93 H 22 H 105/66 100 08/31/18 06:00 08/31/18 06:00 08/31/18 06:00 08/31/18 06:00 08/30/18 21:00 <Alma Delia Kraus - Last Filed: 08/31/18 07:34> Procedures - Central Line Central Line Lumen: triple Central Line Position: internal jugular (R) Anesthesia: 1% Lidocaine Amount of anesthesia (ccs): 3 Complications: line first attempted L IJ, unsuccessful Post Central Line Insertion: sutured, good blood return, position confirmed w/ CXR <DimasJanet - Last Filed: 08/28/18 01:03> ED Treatment Course - LABORATORY CBC & Chemistry Diagram: 08/27/18 16:50 08/27/18 16:50 <DimasJanet - Last Filed: 08/28/18 01:03> - LABORATORY CBC & Chemistry Diagram: 08/30/18 05:45 08/30/18 05:45 - ADDITIONAL ORDERS Additional order review: 08/27/18 16:57 Blood Culture - Preliminary Blood - Peripheral Venous NO GROWTH OBTAINED AFTER 72 HOURS, INCUBATION TO CONTINUE FOR 2 DAYS. 08/27/18 16:57 Blood Culture - Preliminary Blood - Peripheral Venous NO GROWTH OBTAINED AFTER 72 HOURS, INCUBATION TO CONTINUE FOR 2 DAYS. 08/27/18 16:50 RBC 3.30 L MCV 74.9 L MCHC 32.9 RDW 16.0 H MPV 6.5 L D Neutrophils % 70.5 Lymphocytes % 17.9 Monocytes % 6.8 Eosinophils % 4.6 H Basophils % 0.2 - RADIOLOGY Radiology Studies Ordered: Category Date Time Status CHEST X-RAY PORTABLE* [RAD] Stat Radiology 08/28/18 00:43 Completed - Medications Given in the ED: ED Medications Discontinued Medications Generic Name Dose Route Start Last Admin Trade Name Freq PRN Reason Stop Dose Admin Acetaminophen 1,000 mg 08/28/18 01:22 08/28/18 02:40 Ofirmev Injection - IVPB 08/28/18 01:23 1,000 mg ONCE ONE Administration Acetaminophen 1,000 mg 08/28/18 04:45 08/28/18 06:16 Ofirmev Injection - IVPB 08/28/18 04:46 Not Given ONCE ONE Sodium Chloride 1,000 mls @ 1,000 mls/hr 08/28/18 04:45 08/28/18 05:00 Normal Saline - IV 08/28/18 05:44 1,000 mls/hr ASDIR STA Administration Cefepime HCl 1 gm in 50 mls @ 100 mls/hr 08/28/18 04:48 08/28/18 06:17 Maxipime 1 Gm Premix Ivpb IVPB 08/28/18 05:17 Not Given ONCE ONE Vancomycin HCl 1,000 mg/ 250 mls @ 166.667 mls/hr 08/28/18 04:47 08/28/18 05: 30 Dextrose IVPB 08/28/18 06:16 166.667 mls/hr ONCE ONE Administration Protocol Meropenem 1 gm/ Dextrose 100 mls @ 200 mls/hr 08/28/18 06:46 08/28/18 08:04 IVPB 08/28/18 07:15 Not Given ONCE ONE Levofloxacin 750 mg in 150 mls @ 100 mls/hr 08/28/18 07:23 08/30/18 11:18 Levaquin 750 Mg Premixed Ivpb - IVPB Not Given DAILY TOSIN Protocol Metronidazole 500 mg in 100 mls @ 100 mls/hr 08/28/18 10:00 08/28/18 18:23 Flagyl 500mg Premixed Ivpb - IVPB 100 mls/hr Q8H-IV TOSIN Administration Potassium Chloride 20 meq/ 1,010 mls @ 42 mls/hr 08/28/18 19:00 08/28/18 22: 19 Dextrose/Sodium Chloride IVPB 08/29/18 19:02 42 mls/hr ONCE ONE Administration Clindamycin Phosphate 600 mg in 50 mls @ 100 mls/hr 08/28/18 20:45 08/29/18 10:56 Cleocin 600 Mg Premix Ivpb - IVPB 100 mls/hr Q8H-IV TOSIN Administration Protocol Ketorolac Tromethamine 15 mg 08/28/18 05:37 08/28/18 06:13 Toradol Injection - IVPUSH 08/28/18 05:38 15 mg ONCE ONE Administration Magnesium Sulfate 1 gm 08/28/18 14:22 08/28/18 15:11 Magnesium Sulfate IVPB 08/28/18 14:23 1 gm ONCE ONE Administration Midazolam HCl 2 mg 08/27/18 21:57 08/27/18 22:10 Versed - IVPUSH 08/27/18 21:58 2 mg ONCE ONE Administration Non-Formulary Medication 4 mg 08/28/18 14:00 08/28/18 15:53 Tiagabine Hcl [Gabitril] GT Not Given TID TOSIN Vancomycin HCl 1,000 mg 08/29/18 06:00 08/29/18 06:12 Vancomycin (Pre-Docked) IVPB 08/29/18 06:01 1,000 mg ONCE ONE Administration Protocol Alma Delia Hernandez - Last Filed: 08/31/18 07:34> Medical Decision Making - Medical Decision Making Pt was seen at bedside, also will be seen by attending Dr. Garrison. Pt presenting from [place] due to dyspnea and respiratory distress. Pt is accompanied by a caregiver, who states he was recently admitted to [facility] for 2 weeks for pneumonia. Pt was discharged at 11AM this morning, and arrived at [place] with SOB and "desaturating to the 70s" according to the caregiver. They immediately called EMS. Pt sounds and appears potentially fluid overloaded, will evaluate chemistry for electrolytes (pt frequently hypokalemic) before administering diuretics. Also evaluating for infection (sepsis work-up), chest x-ray for pleural effusion vs persistent bacterial infiltrate. Ordered thyroid studies as pt has hx of hyperthyroidism, is diaphoretic and tachycardic, but afebrile. Ordered work-up including CBC, CMP, lactic, TSH/T4, chest x-ray, ECG, blood cultures. Will continue to reassess pt and monitor for symptomatic improvement. IV placement extremely difficult. Placed US-guided EJ with Dr. Garrison. ECG: Sinus tachycardia (HR 127, UT 128, QRS 62, QTc 424). TWIs present on prior ECG (04/2018). No significant ST segment changes. No significant changes from prior ECG. 08/27/18 17:10 Portable chest x-ray shows no obvious infiltrate or consolidation. CBC WNL for pt (chronic anemia) CMP WNL, hypoalbuminemia which may explain fluid collection in extremities Pt persistently tachycardic and hypoxic when weaning off O2 -- on venti mask at 10 L. Ordered CTA of chest to eval for PE (recent hospitalization, bed-bound). 08/27/18 18:08 [id number] RAD/CHEST X-RAY PORTABLE* Chest: Recent pneumonia. Shortness of breath. A single view of the chest is been submitted. Since 05/13/2018 there is evidence of some fluid and possibly atelectasis or infiltrate on the left. There is some atelectasis at the right base. There is a scoliosis with convexity to the right. The mediastinum is not widened. The soft tissues are intact. Correlation recommended. CT may be of help. 08/27/18 19:[address] scan, as multiple pts are waiting for scans. Sent stool guaic, as pt has frequent anemia and is persistently tachycardic. 08/27/18 19:57 08/27/18 20:06 CTA unable to be performed using EJ. Central line placed by sterile technique. Consent was obtained via phone from the pts mother, who is next of kin and proxy. Ordered chest x-ray to confirm central line placement. Pt signed out to Dr. Agustin. Pending CTA and admission. 08/28/18 01:05 <Janet Cochran - Last Filed: 08/28/18 01:03> *DC/Admit/Observation/Transfer <Janet Ccohran - Last Filed: 08/28/18 01:03> - Discharge Dispostion Decision to Admit order: Yes <Alma Delia Kraus - Last Filed: 08/31/18 07:34> Diagnosis at time of Disposition: Hypoxia, Quadriplegic infantile cerebral palsy, NSTEMI (non-ST elevated myocardial infarction), Anemia, Sepsis, Pneumonia - Discharge Dispostion Condition at time of disposition: Guarded
[2018-08-27 17:01] LABS: BASO % 0.2 % (0-2.0); EOS % 4.6 % (0-4.5); HEMATOCRIT 24.7 % (35.4-49); HEMOGLOBIN 8.1 GM/dL (11.7-16.9); LYMPH % 17.9 % (8-40); MCH 24.6 pg (25.7-33.7); MCHC 32.9 g/dl (32.0-35.9); MEAN CELL VOLUME 74.9 fl (80-96); MEAN PLT VOLUME 6.5 fl (7.5-11.1); MONO % 6.8 % (3.8-10.2); NEUT % 70.5 % (42.8-82.8); VENOUS PC02 46.9 mmHg (41-51); VENOUS PH 7.41 (7.31-7.41); VENOUS PO2 48.7 mmHg (30-40); WHITE BLOOD COUNT 8.2 K/mm3 (4.0-10.0)
[2018-08-27 17:43] LABS: ALBUMIN 2.8 g/dl (3.4-5.0); BILIRUBIN,TOTAL 0.4 mg/dL (0.2-1); BLOOD UREA NITROGEN 9.6 mg/dL (7-18); CALCIUM 8.8 mg/dL (8.5-10.1); CREATININE 0.2 mg/dL (0.55-1.3); POTASSIUM 3.9 mmol/L (3.5-5.1); TOT PROT 6.6 g/dl (6.4-8.2)
--- NOTE | 2018-08-27 17:53 | PDOC ---
Documentation entered by Carisa Tirado SCRIBE, acting as scribe for Abdulkadir Garrison MD. Abdulkadir Garrison MD: This documentation has been prepared by the Celestino ram Xhesika, SCRIBE, under my direction and personally reviewed by me in its entirety. I confirm that the documentation accurately reflects all work, treatment, procedures, and medical decision making performed by me. Attending Attestation - Resident Resident Name: Janet Cochran - ED Attending Attestation I have performed the following: I have examined & evaluated the patient, The case was reviewed & discussed with the resident, I agree w/resident's findings & plan, Exceptions are as noted - HPI HPI: 08/27/18 17:42 The patient is a 38 year old male, accompanied by caregiver from [facility], with a significant PMH of mental retardation, congenital quadriplegia, cerebral palsy, seizures, hyperthyroidism, GERD, and pneumonia, who was BIBA to the emergency department with SOB. As per caregiver, the patient was discharged from [facility] today at 11am after being treated for 2 weeks for PNA. As per caregiver, when the patient returned back to [facility] he began to have labored breathing, and was desaturating to the 70s. Allergies: Zosyn Past surgical history: G-tube, J-tube - Physicial Exam PE: 08/27/18 17:54 GENERAL: mild respiratory distress. HEAD: No signs of trauma EYES: PERRLA, EOMI, sclera anicteric, conjunctiva clear ENT: Auricles normal inspection, hearing grossly normal, nares patent, oropharynx clear without exudates. Moist mucosa NECK: Nontender, no stepoffs, Normal ROM, supple, no lymphadenopathy, JVD, or masses LUNGS: + diffuse rhonchi HEART: Regular rate and rhythm, normal S1 and S2, no murmurs, rubs or gallops ABDOMEN: Soft, nontender, normoactive bowel sounds. No guarding, no rebound. No masses EXTREMITIES: + anasarca, No clubbing or cyanosis. No cords, erythema, or tenderness NEUROLOGICAL: nonverbal, contracted SKIN: Warm, Dry, normal turgor, no rashes or lesions noted. - Critical Care Time Total Critical Care Time: 60 Critical Care Statement: The care of this patient involved high complexity decision making to prevent further life threatening deterioration of the patient 's condition and/or to evaluate & treat vital organ system(s) failure or risk of failure. - Medical Decision Making 08/27/18 17:56 38 M with recently treated PNA presenting with respiratory distress and hypoxia. Lungs diffusely rhonchorous. Possible recurrent PNA. Pt with anasarca, will evaluate for pulmonary edema. - Labs, cultures, lactate - CXR
[2018-08-27 20:03] LABS: PLATELET COUNT 289 K/MM3 (134-434); PLATELET ESTIMATE ADEQUATE
[2018-08-27] MEDS ORDERED: MIDAZOLAM HCL 2 MG/2 ML SINGLE DOSE VIAL IVPUSH ONE (21:57)
[2018-08-27] MEDS ORDERED: MIDAZOLAM HCL 2 MG/2 ML SINGLE DOSE VIAL ONE (22:01)
--- NOTE | 2018-08-28 00:59 | PDOC ---
*Physical Exam - Vital Signs Last Vital Signs Temp Pulse Resp BP Pulse Ox 98.7 F 128 H 38 H 137/77 100 08/27/18 15:03 08/27/18 22:17 08/27/18 22:17 08/27/18 22:17 08/27/18 22:17 ED Treatment Course - LABORATORY CBC & Chemistry Diagram: 08/27/18 16:50 08/27/18 16:50 - ADDITIONAL ORDERS Additional order review: Laboratory Results 08/27/18 08/27/18 08/27/18 19:51 16:57 16:50 VBG pH POC VBG pCO2 POC VBG pO2 VBG HCO3 VBG O2 Sat (Shira) VBG Base Excess Sodium Potassium Chloride Carbon Dioxide Anion Gap BUN Creatinine Est GFR (CKD-EPI)AfAm Est GFR (CKD-EPI)NonAf Random Glucose Lactic Acid 0.4 Calcium Total Bilirubin AST ALT Alkaline Phosphatase Total Protein Albumin TSH 2.01 Free T4 1.19 H Stool Occult Blood Negative 08/27/18 08/27/18 16:50 16:50 VBG pH 7.41 POC VBG pCO2 46.9 POC VBG pO2 48.7 H VBG HCO3 29.5 H VBG O2 Sat (Shira) 81.9 H VBG Base Excess 4.8 H Sodium 139 Potassium 3.9 Chloride 105 Carbon Dioxide 30 Anion Gap 5 L BUN 9.6 Creatinine 0.2 L Est GFR (CKD-EPI)AfAm 230.56 Est GFR (CKD-EPI)NonAf 198.93 Random Glucose 77 Lactic Acid Calcium 8.8 Total Bilirubin 0.4 AST 10 L ALT 12 L Alkaline Phosphatase 75 Total Protein 6.6 Albumin 2.8 L TSH Free T4 Stool Occult Blood 08/27/18 16:50 RBC 3.30 L MCV 74.9 L MCHC 32.9 RDW 16.0 H MPV 6.5 L D Neutrophils % 70.5 Lymphocytes % 17.9 Monocytes % 6.8 Eosinophils % 4.6 H Basophils % 0.2 - Medications Given in the ED: ED Medications Discontinued Medications Generic Name Dose Route Start Last Admin Trade Name Freq PRN Reason Stop Dose Admin Midazolam HCl 2 mg 08/27/18 21:57 08/27/18 22:10 Versed - IVPUSH 08/27/18 21:58 2 mg ONCE ONE Administration Medical Decision Making - Medical Decision Making 06/08/19 00:55 38 year old male with PMH CP, quadraplegia, G-tube, J-tube BIBA to ED from [place] for hypoxia/diaphoresis today. Pt was discharged at 1000 today from [facility] for pneumonia. Pt was hypoxic (80s) diaphoretic at [place], which prompted them to call EMS. Pt appeared clinically fluid overloaded. EKG performed at 1832: rate 127, regular rhythm, normal axis, normal intervals, poor quality. Initial Vital Signs Temp Pulse Resp BP Pulse Ox 98.7 F 124 H 32 H 142/107 H 100 08/27/18 15:03 08/27/18 15:03 08/27/18 15:03 08/27/18 15:03 08/27/18 15:03 Afebrile. Tachycardia. Tachypnea. Hypertensive No hypoxia on O2. Vital Signs Pulse Rate 128 H 08/27/18 22:17 Respiratory Rate 38 H 08/27/18 22:17 Blood Pressure 137/77 08/27/18 22:17 O2 Sat by Pulse Oximetry (%) 100 08/27/18 22:17 Tachycardia persisting. Hypertension improving. CBC WBC 8.2 K/mm3 (4.0-10.0) 08/27/18 16:50 RBC 3.30 M/mm3 (4.00-5.60) L 08/27/18 16:50 Hgb 8.1 GM/dL (11.7-16.9) L 08/27/18 16:50 Hct 24.7 % (35.4-49) L D 08/27/18 16:50 MCV 74.9 fl (80-96) L 08/27/18 16:50 MCH 24.6 pg (25.7-33.7) L 08/27/18 16:50 MCHC 32.9 g/dl (32.0-35.9) 08/27/18 16:50 RDW 16.0 % (11.9-15.9) H 08/27/18 16:50 Plt Count 289 K/MM3 (134-434) 08/27/18 16:50 MPV 6.5 fl (7.5-11.1) L D 08/27/18 16:50 Absolute Neuts (auto) 5.8 K/mm3 (1.5-8.0) 08/27/18 16:50 Neutrophils % 70.5 % (42.8-82.8) 08/27/18 16:50 Lymphocytes % 17.9 % (8-40) 08/27/18 16:50 Monocytes % 6.8 % (3.8-10.2) 08/27/18 16:50 Eosinophils % 4.6 % (0-4.5) H 08/27/18 16:50 Basophils % 0.2 % (0-2.0) 08/27/18 16:50 Nucleated RBC % 0 % (0-0) 08/27/18 16:50 Platelet Estimate Adequate 08/27/18 16:50 Platelet Comment Slide scanned 08/27/18 16:50 CMP Sodium 139 mmol/L (136-145) 08/27/18 16:50 Potassium 3.9 mmol/L (3.5-5.1) 08/27/18 16:50 Chloride 105 mmol/L (98-107) 08/27/18 16:50 Carbon Dioxide 30 mmol/L (21-32) 08/27/18 16:50 Anion Gap 5 MMOL/L (8-16) L 08/27/18 16:50 BUN 9.6 mg/dL (7-18) 08/27/18 16:50 Creatinine 0.2 mg/dL (0.55-1.3) L 08/27/18 16:50 Est GFR (CKD-EPI)AfAm 230.56 08/27/18 16:50 Est GFR (CKD-EPI)NonAf 198.93 08/27/18 16:50 Random Glucose 77 mg/dL (74-106) 08/27/18 16:50 Lactic Acid 0.4 mmol/L (0.4-2.0) 08/27/18 16:57 Calcium 8.8 mg/dL (8.5-10.1) 08/27/18 16:50 Total Bilirubin 0.4 mg/dL (0.2-1) 08/27/18 16:50 AST 10 U/L (15-37) L 08/27/18 16:50 ALT 12 U/L (13-61) L 08/27/18 16:50 Alkaline Phosphatase 75 U/L (45-117) 08/27/18 16:50 Total Protein 6.6 g/dl (6.4-8.2) 08/27/18 16:50 Albumin 2.8 g/dl (3.4-5.0) L 08/27/18 16:50 TSH 2.01 uIU/ml (0.358-3.74) 08/27/18 16:50 Free T4 1.19 ng/dl (0.76-1.16) H 08/27/18 16:50 CXR report: A single view of the chest is been submitted. Since 05/13/2018 there is evidence of some fluid and possibly atelectasis or infiltrate on the left. There is some atelectasis at the right base. There is a scoliosis with convexity to the right. The mediastinum is not widened. The soft tissues are intact. Correlation recommended. CT may be of help. Reported By: Mainor Howe MD 08/27/18 0580 VBG - normal pH. Pending CTA for PE R/O. Central line to right IJ. Pending CXR for placement. Pending disposition. 08/28/18 01:32 Repeat CXR: right IJ in place. -Pending official report. 08/28/18 02:44 CMP Troponin I 0.10 ng/ml (0.00-0.05) H 08/28/18 01:59 B-Natriuretic Peptide 1413.3 pg/ml (5-125) H 08/28/18 01:59 BNP elevation Troponin elevation 08/28/18 04:42 CTA chest report: 2.0 cm left thyroid nodule, advise ultrasound correlation. No definite PE, but evaluation limited by motion artifact. No aortic dissection or aneurysm. No pneumonia or pleural effusions. Partial atelectasis left lower lobe. Right central venous catheter, tip in SVC. Dextroscoliosis thoracolumbar spine. Subcutaneous edema Pt now febrile 100.3F by rectal temperature. Medications ordered: Cefepime and Vancomycin, Toradol 30 mg IV once -Zosyn allergy *DC/Admit/Observation/Transfer Diagnosis at time of Disposition: Hypoxia, Quadriplegic infantile cerebral palsy, NSTEMI (non-ST elevated myocardial infarction), Anemia - Discharge Dispostion Condition at time of disposition: Stable Decision to Admit order: Yes - Referrals - Patient Instructions - Post Discharge Activity
[2018-08-28] MEDS ORDERED: ACETAMINOPHEN 1000 MG/100 ML VIAL (NON FORMULARY) IVPB ONE ×2 (01:22→04:45)
[2018-08-28 02:36] LABS: N-TERMINAL BNP 1413.3 pg/ml (5-125)
[2018-08-28] MEDS ORDERED: ACETAMINOPHEN INJECTION 100 ML IVPB ONE (03:17)
[2018-08-28] MEDS ORDERED: SODIUM CHLORIDE 1,000 ML IV STA (04:45)
[2018-08-28] MEDS ORDERED: VANCOMYCIN 1,000 MG in DEXTROSE 5%-WATER - 250 ML IVPB ONE (04:47)
[2018-08-28] MEDS ORDERED: CEFEPIME HCL/D5W 1 GM/50 ML BAG IVPB ONE (04:48)
--- NOTE | 2018-08-28 05:15 | PN ---
Teaching Attending Note Name of Resident: Deagnelo Griffin ATTENDING PHYSICIAN STATEMENT I saw and evaluated the patient. I reviewed the resident's note and discussed the case with the resident. I agree with the resident's findings and plan as documented. SUBJECTIVE: Patient is a 38 year old man with PMH of Cerebral palsy with severe intellectual disability/non-verbal/quadriplegia, seizure disorder, hyperthyroidism, G-tube and J-tube placement, and SBO, who is presenting from [place] due to dyspnea and respiratory distress. Patient is accompanied by a caregiver, who states he was recently admitted to [facility] for 2 weeks for pneumonia. He was discharged at 11AM this morning, and arrived at [place] [facility] with SOB and "desaturating to the 70s" according to the caregiver. [facility] staff immediately called EMS per caregiver. OBJECTIVE: Nonverbal; gargling and noisy breathing Vital Signs Period Temp Pulse Resp BP Sys/Bruce Pulse Ox Last 24 Hr 98.7 F-99.5 F 124-148 32-38 129-152/62-107 88-100 HEENT: No Jaundice, eye redness or discharge, PERRLA, EOMI. Normocephalic, atraumatic. External ears are normal. No nasal discharge. Neck: Supple, nontender. No palpable adenopathy or thyromegaly. No JVD Chest: Good effort. Clear to auscultation and percussion. Heart: Regular. No S3, rub or murmur Abdomen: Distended, feeding tube in place and right colostomy bag, nontender and no HSM. No rebound or guarding. Normal bowel sounds. Ext: Peripheral pulses intact. No leg edema. Sacral decubitus ulcer. Diaper in place. Skin: Warm and dry. No petechiae, rash or ecchymosis. Neuro: Nonverbal. Eyes open. "Decorticate" positioning. Spastic quadriplegia. Upper limb contractures. Bilateral foot drop. Psych: Unable to assess. Current Medications Generic Name Dose Route Start Last Admin Trade Name Freq PRN Reason Stop Dose Admin Vancomycin HCl 1,000 mg/ 250 mls @ 166.667 mls/hr 08/28/18 04:47 08/28/18 05: 30 Dextrose IVPB 08/28/18 06:16 166.667 mls/hr ONCE ONE Administration Protocol Home Medications Medication Instructions Recorded Atenolol [Tenormin] 12.5 mg GT AM 03/03/17 Baclofen 10 mg GT TID 03/03/17 Bisacodyl 10 mg RC TID 03/03/17 Potassium Chloride Oral Soln [KCl 10 meq GT DAILY 03/03/17 Oral Solution] Tizanidine HCl 4 mg PO QID 03/03/17 Clindamycin Topical Solution 1 applic TP DAILY 10/16/17 [Cleocin 1% Topical Solution -] Clotrimazole 1 applic TP TID 10/16/17 Ferrous Sulfate 220 mg GT DAILY 10/16/17 Fluticasone Prop 0.05% Nasal 1 - 2 spray NS DAILY 10/16/17 [Flonase -] Multivit-Minerals/Ferrous Fum 30 ml GT DAILY 10/16/17 [Multivitamin Liquid] Zinc Gluconate [Zinc] 100 mg GT HS 10/16/17 Zinc Oxide 20% Topical Oint 1 applic TP BID 10/16/17 Albuterol 0.083% Nebulizer Lupe 1 neb NEB Q4H PRN 05/14/18 [Ventolin 0.083% Nebulizer Soln -] Calcium Carbonate/Vitamin D3 1 each PO TID 05/14/18 [Oystercal-D 500 mg-400 Unit Tb] Mag Hydrox/Aluminum Hyd/Simeth 355 ml GT Q8H 05/14/18 [Antacid Anti-Gas Liquid] Simethicone Liquid [Mylicon Liquid 40 mg GT QID 05/14/18 -] Tiagabine HCl [Gabitril] 4 mg GT TID 05/14/18 Lactobacillus Acidophilus [Bacid -] 1 tab GT BID tab 05/15/18 Polyethylene Glycol 3350 [Miralax 17 gm PO DAILY bottle 05/15/18 119 gm Btl -] Abnormal Lab Results 08/27/18 08/27/18 08/27/18 16:50 16:50 16:50 RBC 3.30 L Hgb 8.1 L Hct 24.7 L D MCV 74.9 L MCH 24.6 L RDW 16.0 H MPV 6.5 L D Eosinophils % 4.6 H POC VBG pO2 48.7 H VBG HCO3 29.5 H VBG O2 Sat (Shira) 81.9 H VBG Base Excess 4.8 H Anion Gap 5 L Creatinine 0.2 L AST 10 L ALT 12 L Troponin I B-Natriuretic Peptide Albumin 2.8 L Free T4 08/27/18 08/28/18 08/28/18 16:50 01:59 04:37 RBC Hgb Hct MCV MCH RDW MPV Eosinophils % POC VBG pO2 VBG HCO3 VBG O2 Sat (Shira) VBG Base Excess Anion Gap Creatinine AST ALT Troponin I 0.10 H 0.21 H B-Natriuretic Peptide 1413.3 H 1765.4 H Albumin Free T4 1.19 H ASSESSMENT AND PLAN: 1. Aspiration pneumonia?/NSTEMI - No acute abnormality on CXR and CTA pending to rule out pulmonary embolism. Sepsis work up done and patient being treated with IV Vancomycin and Meropenem. Urinalysis pending. Will also get CT abdomen and pelvis to rule out intra-abdominal infection. Patient reportedly has had leakage of the feeding tube recently. Continue daily wound care of sacral ulcer and provide comprehensive care of all his comorbid issues. Continue frequent repositioning. Test feeding tube before commencing feeding and implement aspiration precautions. Consult ID. Troponin is elevated. EKG shows sinus tachycardia but no significant ST-T wave changes. Though elevated troponin may due to demand ischemia, will trend troponin to rule out NSTEMI. Get ECHO and consult cardiology. Will contact [facility] during the day to get records of recent hospital stay. 2. Anemia - Likely multifactorial. Will do basic anemia work up including serial stool guaiacs, reticulocyte count and iron studies. 3. Hypertension - Restart suitable outpatient antihypertensive drugs when clinically appropriate. 4. DVT prophylaxis - Lovenox 40 mg SQ q 24 hours. 5. Advance directives - Full code
[2018-08-28] MEDS ORDERED: VANCOMYCIN 1 GRAM (PRE-DOCKED) 1,000 MG/250 ML BAG IVPB ONE (05:25)
[2018-08-28 05:37] LABS: N-TERMINAL BNP 1765.4 pg/ml (5-125)
[2018-08-28] MEDS ORDERED: KETOROLAC TROMETHAMINE 15 MG/ML VIAL IVPUSH ONE (05:37)
--- NOTE | 2018-08-28 05:38 | PDOC ---
*Physical Exam - Vital Signs Last Vital Signs Temp Pulse Resp BP Pulse Ox 99.5 F 148 H 36 H 130/62 100 08/28/18 01:23 08/28/18 04:20 08/28/18 04:20 08/28/18 04:20 08/28/18 04:20 ED Treatment Course - LABORATORY CBC & Chemistry Diagram: 08/30/18 05:45 08/30/18 05:45 - ADDITIONAL ORDERS Additional order review: Laboratory Results 08/28/18 08/28/18 08/27/18 04:37 01:59 19:51 Sodium Potassium Chloride Carbon Dioxide Anion Gap BUN Creatinine Est GFR (CKD-EPI)AfAm Est GFR (CKD-EPI)NonAf Random Glucose Lactic Acid Calcium Total Bilirubin AST ALT Alkaline Phosphatase Troponin I 0.21 H 0.10 H B-Natriuretic Peptide 1765.4 H 1413.3 H Total Protein Albumin TSH Free T4 Stool Occult Blood Negative 08/27/18 08/27/18 08/27/18 16:57 16:50 16:50 Sodium 139 Potassium 3.9 Chloride 105 Carbon Dioxide 30 Anion Gap 5 L BUN 9.6 Creatinine 0.2 L Est GFR (CKD-EPI)AfAm 230.56 Est GFR (CKD-EPI)NonAf 198.93 Random Glucose 77 Lactic Acid 0.4 Calcium 8.8 Total Bilirubin 0.4 AST 10 L ALT 12 L Alkaline Phosphatase 75 Troponin I B-Natriuretic Peptide Total Protein 6.6 Albumin 2.8 L TSH 2.01 Free T4 1.19 H Stool Occult Blood 08/27/18 16:50 RBC 3.30 L MCV 74.9 L MCHC 32.9 RDW 16.0 H MPV 6.5 L D Neutrophils % 70.5 Lymphocytes % 17.9 Monocytes % 6.8 Eosinophils % 4.6 H Basophils % 0.2 - RADIOLOGY Radiology Studies Ordered: Category Date Time Status CHEST X-RAY PORTABLE* [RAD] Stat Radiology 08/28/18 00:43 Taken - Medications Given in the ED: ED Medications Discontinued Medications Generic Name Dose Route Start Last Admin Trade Name Freq PRN Reason Stop Dose Admin Acetaminophen 1,000 mg 08/28/18 01:22 08/28/18 02:40 Ofirmev Injection - IVPB 08/28/18 01:23 1,000 mg ONCE ONE Administration Midazolam HCl 2 mg 08/27/18 21:57 08/27/18 22:10 Versed - IVPUSH 08/27/18 21:58 2 mg ONCE ONE Administration Medical Decision Making - Medical Decision Making 08/28/18 05:45 38 yo M, with PMH of CP with severe intellectual disability/non-verbal/ quadriplegia, seizure disorder, hyperthyroidism, G-tube and J-tube placement, and SBO, who is presenting from [place] due to dyspnea and respiratory distress. Pt is accompanied by a caregiver, who states he was recently admitted to [facility] for 2 weeks for pneumonia. Discharged today, arrived at [place] with SOB and hypoxia 70s. s/o from Dr Garrison pending labs/workup, CT no peripheral access with contracture even with Ultrasound access. EJ in place, cannot do CTA central line in RIJ placed by resident, see note by Dr Cochran, under Dr Pablo and my supervision. confirmed on CXR with tip at the [facility] labs with new on chronic anemia, guaiac neg. prior H/H has dropped this low, likely chronic disease BNP and trop elevated 0.1, new now as prior . likely demand ischemia vs sepsis. EKG with sinus tachycardia lactic reassuringly negative VS with persistent tachy and tachypnea with O2 supplementation >30s sats normalized here CTA finally able to be done with RIJ central line - no PE or effusion/large infiltrate - small LLL focal infiltrate noted. IV vancomycin and cefepime for empiric coverage, HCAP and recent risk factors/ hospitalization 08/28/18 05:55 - now spiked fever 100.4, sirs response. appropriate abx ongoing. s/p IVF and antipyretics. Tachyardia improving, 120s, some desats with movement and tachypnea noted ICU consulatation, no need for higher level of care for now no pressors needed, on supp O2 currently and VS improving with source likely pna admit telemetry to hospitalist service overnight, medical management, cultures/ infectious etiology pending. 08/28/18 06:01 08/31/18 07:17 *DC/Admit/Observation/Transfer Diagnosis at time of Disposition: Hypoxia, Quadriplegic infantile cerebral palsy, NSTEMI (non-ST elevated myocardial infarction), Anemia, Sepsis, Pneumonia - Discharge Dispostion Condition at time of disposition: Stable Decision to Admit order: Yes Decision to Admit order Date/Time: 08/28/18 06:01 - Referrals - Patient Instructions - Post Discharge Activity
[2018-08-28] MEDS ORDERED: KETOROLAC TROMETHAMINE 15 MG/ML VIAL ONE (06:05)
--- NOTE | 2018-08-28 06:17 | HP ---
CHIEF COMPLAINT: SOB, desaturation PCP: Dr. Gusman HISTORY OF PRESENT ILLNESS: Patient nonverbal; medical hx taken from EMR and caregiver at bedside. The patient is a 38 yo M w/ PMH of CP with severe intellectual disability/non- verbal/quadriplegia, seizure disorder, hyperthyroidism, G-tube and J-tube placement, and SBO, who is presenting from [place] due to dyspnea and respiratory distress. Patient was discharged home after a 2 week stay in [facility] for pneumonia and was noted to be desaturating to the 70's, which prompted the patient's return to the ER. ER course was notable for: (1) 1L NS (2) Vancomycin 1g (3) CXR showing questionable infiltrate on the left (4) CTA pending read (5) Rt IJ cvc placed in ED Recent Travel: none PAST MEDICAL HISTORY: see HPI PAST SURGICAL HISTORY: Colostomy G-tube, J-tube placement Social History: Smoking: denies Alcohol: denies Drugs: denies Allergies piperacillin [From Zosyn] Allergy (Verified 08/27/18 15:38) tazobactam [From Zosyn] Allergy (Verified 08/27/18 15:38) HOME MEDICATIONS: Home Medications Medication Instructions Recorded Atenolol [Tenormin] 12.5 mg GT AM 03/03/17 Baclofen 10 mg GT TID 03/03/17 Bisacodyl 10 mg RC TID 03/03/17 Potassium Chloride Oral Soln [KCl 10 meq GT DAILY 03/03/17 Oral Solution] Tizanidine HCl 4 mg PO QID 03/03/17 Clindamycin Topical Solution 1 applic TP DAILY 10/16/17 [Cleocin 1% Topical Solution -] Clotrimazole 1 applic TP TID 10/16/17 Ferrous Sulfate 220 mg GT DAILY 10/16/17 Fluticasone Prop 0.05% Nasal 1 - 2 spray NS DAILY 10/16/17 [Flonase -] Multivit-Minerals/Ferrous Fum 30 ml GT DAILY 10/16/17 [Multivitamin Liquid] Zinc Gluconate [Zinc] 100 mg GT HS 10/16/17 Zinc Oxide 20% Topical Oint 1 applic TP BID 10/16/17 Albuterol 0.083% Nebulizer Lupe 1 neb NEB Q4H PRN 05/14/18 [Ventolin 0.083% Nebulizer Soln -] Calcium Carbonate/Vitamin D3 1 each PO TID 05/14/18 [Oystercal-D 500 mg-400 Unit Tb] Mag Hydrox/Aluminum Hyd/Simeth 355 ml GT Q8H 05/14/18 [Antacid Anti-Gas Liquid] Simethicone Liquid [Mylicon Liquid 40 mg GT QID 05/14/18 -] Tiagabine HCl [Gabitril] 4 mg GT TID 05/14/18 Lactobacillus Acidophilus [Bacid -] 1 tab GT BID tab 05/15/18 Polyethylene Glycol 3350 [Miralax 17 gm PO DAILY bottle 05/15/18 119 gm Btl -] REVIEW OF SYSTEMS Unable to obtain PHYSICAL EXAMINATION Vital Signs - 24 hr 08/27/18 08/27/18 08/27/18 15:03 17:10 19:42 Temperature 98.7 F Pulse Rate 124 H Pulse Rate [ 130 H Apical] Respiratory 32 H 32 H Rate Blood Pressure 142/107 H Blood Pressure 152/86 [Right Arm] O2 Sat by Pulse 100 100 100 Oximetry (%) 08/27/18 08/27/18 08/27/18 19:51 19:59 22:17 Temperature Pulse Rate 130 H Pulse Rate [ 128 H Apical] Respiratory 38 H Rate Blood Pressure Blood Pressure 137/77 [Right Arm] O2 Sat by Pulse 100 100 100 Oximetry (%) 08/28/18 08/28/18 08/28/18 01:23 02:32 04:20 Temperature 99.5 F Pulse Rate Pulse Rate [ 136 H 148 H Apical] Respiratory 34 H 36 H Rate Blood Pressure Blood Pressure 129/67 130/62 [Right Arm] O2 Sat by Pulse 100 100 100 Oximetry (%) 08/28/18 05:58 Temperature Pulse Rate Pulse Rate [ 124 H Apical] Respiratory 34 H Rate Blood Pressure Blood Pressure 137/84 [Right Arm] O2 Sat by Pulse 88 L Oximetry (%) GENERAL: Awake, alert, in no acute distress. Noisy breathing noted HEAD: Normal with no signs of trauma. NECK: Normal range of motion, supple without lymphadenopathy, JVD, or masses. LUNGS: Breath sounds equal, coarse breath sounds b/l. No wheezes, and no crackles. HEART: Regular rate and rhythm, normal S1 and S2 without murmur, rub or gallop. ABDOMEN: Soft, nontender, not distended, normoactive bowel sounds, no guarding, no rebound, no masses. No hepatomegaly or splenomegaly. LOWER EXTREMITIES: 2+ pulses, warm, well-perfused. No calf tenderness. No peripheral edema. NEUROLOGICAL: Cranial nerves II-X intact. Normal speech. Normal gait. PSYCHIATRIC: Cooperative. Good eye contact. Appropriate mood and affect. SKIN: Warm, dry, normal turgor, no rashes or lesions noted, normal capillary refill. Laboratory Results - last 24 hr 08/27/18 08/27/18 08/27/18 16:50 16:50 16:50 WBC 8.2 RBC 3.30 L Hgb 8.1 L Hct 24.7 L D MCV 74.9 L MCH 24.6 L MCHC 32.9 RDW 16.0 H Plt Count 289 MPV 6.5 L D Absolute Neuts (auto) 5.8 Neutrophils % 70.5 Lymphocytes % 17.9 Monocytes % 6.8 Eosinophils % 4.6 H Basophils % 0.2 Nucleated RBC % 0 Platelet Estimate Adequate Platelet Comment Slide scanned VBG pH 7.41 POC VBG pCO2 46.9 POC VBG pO2 48.7 H VBG HCO3 29.5 H VBG O2 Sat (Shira) 81.9 H VBG Base Excess 4.8 H Sodium 139 Potassium 3.9 Chloride 105 Carbon Dioxide 30 Anion Gap 5 L BUN 9.6 Creatinine 0.2 L Est GFR (CKD-EPI)AfAm 230.56 Est GFR (CKD-EPI)NonAf 198.93 Random Glucose 77 Lactic Acid Calcium 8.8 Total Bilirubin 0.4 AST 10 L ALT 12 L Alkaline Phosphatase 75 Troponin I B-Natriuretic Peptide Total Protein 6.6 Albumin 2.8 L TSH Free T4 Stool Occult Blood 08/27/18 08/27/18 08/27/18 16:50 16:57 19:51 WBC RBC Hgb Hct MCV MCH MCHC RDW Plt Count MPV Absolute Neuts (auto) Neutrophils % Lymphocytes % Monocytes % Eosinophils % Basophils % Nucleated RBC % Platelet Estimate Platelet Comment VBG pH POC VBG pCO2 POC VBG pO2 VBG HCO3 VBG O2 Sat (Shira) VBG Base Excess Sodium Potassium Chloride Carbon Dioxide Anion Gap BUN Creatinine Est GFR (CKD-EPI)AfAm Est GFR (CKD-EPI)NonAf Random Glucose Lactic Acid 0.4 Calcium Total Bilirubin AST ALT Alkaline Phosphatase Troponin I B-Natriuretic Peptide Total Protein Albumin TSH 2.01 Free T4 1.19 H Stool Occult Blood Negative 08/28/18 08/28/18 01:59 04:37 WBC RBC Hgb Hct MCV MCH MCHC RDW Plt Count MPV Absolute Neuts (auto) Neutrophils % Lymphocytes % Monocytes % Eosinophils % Basophils % Nucleated RBC % Platelet Estimate Platelet Comment VBG pH POC VBG pCO2 POC VBG pO2 VBG HCO3 VBG O2 Sat (Shira) VBG Base Excess Sodium Potassium Chloride Carbon Dioxide Anion Gap BUN Creatinine Est GFR (CKD-EPI)AfAm Est GFR (CKD-EPI)NonAf Random Glucose Lactic Acid Calcium Total Bilirubin AST ALT Alkaline Phosphatase Troponin I 0.10 H 0.21 H B-Natriuretic Peptide 1413.3 H 1765.4 H Total Protein Albumin TSH Free T4 Stool Occult Blood ASSESSMENT/PLAN: The patient is a 38 yo M w/ PMH of CP with severe intellectual disability/non- verbal/quadriplegia, seizure disorder, hyperthyroidism, G-tube and J-tube placement, and SBO, who is presenting from [place] due to dyspnea and respiratory distress. #SOB and hypoxia in the field likely 2/2 pna -s/p Vanc in ED -will add levaquin 750; qtc 424 -patient has zosyn allergy in chart; unable to confirm reaction w/ caregiver. -ID consulted, Dr. Hernandez -Will obtain [facility] records from recent admission and potential cultures #troponemia -Likely 2/2 demand ischemia in the setting of increased work of breathing and infection -intial EKG of poor quality, but no apparent ischemia seen -will rpt EKG -trend trop to peak #anemia -Hb 12 from 04/2018, 8.1 today -possible GIB; no active bleeding, no melena -will compare count with [facility] records once obtained -initial FOBT negative; will rpt -maintain normal transfusion thresholds #FEN -s/p 1 L bolus in ED; will use fluids sparingly to avoid overload -Lytes wnl, monitor -tube feeds to be resumed based off of records from [place] #Prophy -SCDs b/l; holding AC until GIB ruled out -Protonix BID #Dispo -Admit tele Visit type - Emergency Visit Emergency Visit: Yes ED Registration Date: 08/28/18 Care time: The patient presented to the Emergency Department on the above date and was hospitalized for further evaluation of their emergent condition. - New Patient This patient is new to me today: Yes Date on this admission: 08/28/18 - Critical Care Critical Care patient: No
--- NOTE | 2018-08-28 06:31 | CONSULT ---
Consultation: REQUESTING PROVIDER: CONSULT REQUEST: We have been asked to medically evaluate this patient for Sepsis. HISTORY OF PRESENT ILLNESS: Pt is a 38 y/o M mental retardation, congenital quadriplegia, cerebral palsy, seizures, hyperthyroidism, GERD, and pneumonia who presented to ED BIBA from [facility] with rapid breathing and hypoxia to the 70s per report. Pt was evidently discharged today from [facility] after 2 weeks of treatment for PNA. He returned to [facility] and was found to be hypoxic and tachypnic. Pt does not speak; history taken from records and report. In ED pt has been persistently tachycardic and tachypnic since arriving. ICU was called to consult. REVIEW OF SYSTEMS: CONSTITUTIONAL: Absent: fever, chills, diaphoresis, generalized weakness, malaise, loss of appetite, weight change HEENT: Absent: rhinorrhea, nasal congestion, throat pain, throat swelling, difficulty swallowing, mouth swelling, ear pain, eye pain, visual changes CARDIOVASCULAR: Absent: chest pain, syncope, palpitations, irregular heart rate, lightheadedness , peripheral edema RESPIRATORY: shortness of breath Absent: cough, , dyspnea with exertion, orthopnea, wheezing, stridor, hemoptysis GASTROINTESTINAL: Absent: abdominal pain, abdominal distension, nausea, vomiting, diarrhea, constipation, melena, hematochezia GENITOURINARY: Absent: dysuria, frequency, urgency, hesitancy, hematuria, flank pain, genital pain MUSCULOSKELETAL: Absent: myalgia, arthralgia, joint swelling, back pain, neck pain SKIN: Absent: rash, itching, pallor HEMATOLOGIC/IMMUNOLOGIC: Absent: easy bleeding, easy bruising, lymphadenopathy, frequent infections ENDOCRINE: Absent: unexplained weight gain, unexplained weight loss, heat intolerance, cold intolerance NEUROLOGIC: Absent: headache, focal weakness or paresthesias, dizziness, unsteady gait, seizure, mental status changes, bladder or bowel incontinence PSYCHIATRIC: Absent: anxiety, depression, suicidal or homicidal ideation, hallucinations. PHYSICAL EXAMINATION Vital Signs - 24 hr 08/27/18 08/27/18 08/27/18 15:03 17:10 19:42 Temperature 98.7 F Pulse Rate 124 H Pulse Rate [ 130 H Apical] Respiratory 32 H 32 H Rate Blood Pressure 142/107 H Blood Pressure 152/86 [Right Arm] O2 Sat by Pulse 100 100 100 Oximetry (%) 08/27/18 08/27/18 08/27/18 19:51 19:59 22:17 Temperature Pulse Rate 130 H Pulse Rate [ 128 H Apical] Respiratory 38 H Rate Blood Pressure Blood Pressure 137/77 [Right Arm] O2 Sat by Pulse 100 100 100 Oximetry (%) 08/28/18 08/28/18 08/28/18 01:23 02:32 04:20 Temperature 99.5 F Pulse Rate Pulse Rate [ 136 H 148 H Apical] Respiratory 34 H 36 H Rate Blood Pressure Blood Pressure 129/67 130/62 [Right Arm] O2 Sat by Pulse 100 100 100 Oximetry (%) Gen: Pt does not respond to commands. Contracted, awake, tracks movement, tachypnic, tachycardic HEENT: NCAT Neck: no JVD evident, R central line in place Cardio: tachycardic, regular, s1s2, no mrg appreciated Pulm: diffusely coarse lung sounds Abd: mild distension (chronic), soft, nontender, G tube in place and cdi, Ostomy bag in place and cdi Ext: contracted, no edema, 2+ radial pulses Laboratory Results - last 24 hr 08/27/18 08/27/18 08/27/18 16:50 16:50 16:50 WBC 8.2 RBC 3.30 L Hgb 8.1 L Hct 24.7 L D MCV 74.9 L MCH 24.6 L MCHC 32.9 RDW 16.0 H Plt Count 289 MPV 6.5 L D Absolute Neuts (auto) 5.8 Neutrophils % 70.5 Lymphocytes % 17.9 Monocytes % 6.8 Eosinophils % 4.6 H Basophils % 0.2 Nucleated RBC % 0 Platelet Estimate Adequate Platelet Comment Slide scanned VBG pH 7.41 POC VBG pCO2 46.9 POC VBG pO2 48.7 H VBG HCO3 29.5 H VBG O2 Sat (Shira) 81.9 H VBG Base Excess 4.8 H Sodium 139 Potassium 3.9 Chloride 105 Carbon Dioxide 30 Anion Gap 5 L BUN 9.6 Creatinine 0.2 L Est GFR (CKD-EPI)AfAm 230.56 Est GFR (CKD-EPI)NonAf 198.93 Random Glucose 77 Lactic Acid Calcium 8.8 Total Bilirubin 0.4 AST 10 L ALT 12 L Alkaline Phosphatase 75 Troponin I B-Natriuretic Peptide Total Protein 6.6 Albumin 2.8 L TSH Free T4 Stool Occult Blood 08/27/18 08/27/18 08/27/18 16:50 16:57 19:51 WBC RBC Hgb Hct MCV MCH MCHC RDW Plt Count MPV Absolute Neuts (auto) Neutrophils % Lymphocytes % Monocytes % Eosinophils % Basophils % Nucleated RBC % Platelet Estimate Platelet Comment VBG pH POC VBG pCO2 POC VBG pO2 VBG HCO3 VBG O2 Sat (Shira) VBG Base Excess Sodium Potassium Chloride Carbon Dioxide Anion Gap BUN Creatinine Est GFR (CKD-EPI)AfAm Est GFR (CKD-EPI)NonAf Random Glucose Lactic Acid 0.4 Calcium Total Bilirubin AST ALT Alkaline Phosphatase Troponin I B-Natriuretic Peptide Total Protein Albumin TSH 2.01 Free T4 1.19 H Stool Occult Blood Negative 08/28/18 08/28/18 01:59 04:37 WBC RBC Hgb Hct MCV MCH MCHC RDW Plt Count MPV Absolute Neuts (auto) Neutrophils % Lymphocytes % Monocytes % Eosinophils % Basophils % Nucleated RBC % Platelet Estimate Platelet Comment VBG pH POC VBG pCO2 POC VBG pO2 VBG HCO3 VBG O2 Sat (Shira) VBG Base Excess Sodium Potassium Chloride Carbon Dioxide Anion Gap BUN Creatinine Est GFR (CKD-EPI)AfAm Est GFR (CKD-EPI)NonAf Random Glucose Lactic Acid Calcium Total Bilirubin AST ALT Alkaline Phosphatase Troponin I 0.10 H 0.21 H B-Natriuretic Peptide 1413.3 H 1765.4 H Total Protein Albumin TSH Free T4 Stool Occult Blood Active Medications Generic Name Dose Route Start Last Admin Trade Name Freq PRN Reason Stop Dose Admin Sodium Chloride 1,000 mls @ 1,000 mls/hr 08/28/18 04:45 08/28/18 05:00 Normal Saline - IV 08/28/18 05:44 1,000 mls/hr ASDIR STA Administration Vancomycin HCl 1,000 mg/ 250 mls @ 166.667 mls/hr 08/28/18 04:47 08/28/18 05: 30 Dextrose IVPB 08/28/18 06:16 166.667 mls/hr ONCE ONE Administration Protocol ASSESSMENT/PLAN: Pt is a 38 y/o M with H mental retardation, congenital quadriplegia, cerebral palsy, seizures, hyperthyroidism, GERD, and pneumonia who presents from [facility] for hypoxia and tachypnea. Pt has been persistently tachypnic and tachycardic in ED since arrival. ICU was called to evaluate for possible Sepsis. #Tachycardia and tachypnia with hypoxia -Persistent derrangement of vital signs. Possibly due to sepsis, though no source has been elucidated thus far. Notably, BP has been stable and Lactic acid /bicarb within normal limits. -Intial workup for PE has been unrevealing as CTA chest was neg. EKG shows sinus tachycardia. -Of note, pt's partial nonrebreather (3L) mask removed during my exam without drop in O2 sat, however, per nurse, sats dropped temporarily while pt was being moved shortly after my physical exam. I was not able to witness any hypoxic event. -CXR with scoliosis and possible evidence of fluid/atalectasis/collection in the left base. 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 Result may be clouded by administration of antibiotics -Consider anemia as possible source of tachycardia. Would not explain hypoxia, however. #Microcytic Anemia -Hb 8 -prior Hb of 12 in Feb -No report of dark or red stool -first FOBT neg -suggest serial FOBT, retic count, Fe studies #Elevated troponin -likely 2/2 tachycardia -trend -EKG with sinus tachycardia and old anterior TWI. No acute change #Elevated BNP -unclear significance in setting of hyperdynamic state -Previous echo in 2017 showed grossly normal LV Given the absence of requirement for titratable drip, intubation, severe metabolic derrangement, recommend admission to floors at this time. Will reevaluate if pt's status deteriorates. Dispo: We will continue to follow the patient. Thank you for this consultative opportunity. Visit type - Emergency Visit Emergency Visit: Yes Care time: The patient presented to the Emergency Department on the above date and was hospitalized for further evaluation of their emergent condition. - New Patient This patient is new to me today: Yes Date on this admission: 08/28/18 - Critical Care Critical Care patient: No
[2018-08-28] MEDS ORDERED: MEROPENEM 1 GM in DEXTROSE 5%-WATER 100 ML IVPB ONE (06:46)
[2018-08-28 07:15] LABS: BASO % 0.2 % (0-2.0); EOS % 0.6 % (0-4.5); HEMATOCRIT 21.9 % (35.4-49); HEMOGLOBIN 7.1 GM/dL (11.7-16.9); LYMPH % 7.2 % (8-40); MCH 24.7 pg (25.7-33.7); MCHC 32.3 g/dl (32.0-35.9); MEAN CELL VOLUME 76.6 fl (80-96); MONO % 3.9 % (3.8-10.2); NEUT % 88.1 % (42.8-82.8); RBC 2.86 M/mm3 (4.00-5.60); RDW 15.9 % (11.9-15.9)
[2018-08-28 08:02] LABS: ALBUMIN 2.4 g/dl (3.4-5.0); BILIRUBIN,TOTAL 0.7 mg/dL (0.2-1); BLOOD UREA NITROGEN 8.7 mg/dL (7-18); CALCIUM 7.8 mg/dL (8.5-10.1); CREATININE 0.2 mg/dL (0.55-1.3); MAGNESIUM 1.7 mg/dL (1.8-2.4); PHOSPHOROUS 4.3 mg/dL (2.5-4.9); POTASSIUM 3.5 mmol/L (3.5-5.1)
--- NOTE | 2018-08-28 08:48 | EKG ---
Test Reason : Blood Pressure : / mmHG Vent. Rate : 119 BPM Atrial Rate : 119 BPM P-R Int : 124 ms QRS Dur : 072 ms QT Int : 324 ms P-R-T Axes : 068 062 066 degrees QTc Int : 455 ms POOR DATA QUALITY, INTERPRETATION MAY BE ADVERSELY AFFECTED SINUS TACHYCARDIA POSSIBLE LEFT ATRIAL ENLARGEMENT T WAVE ABNORMALITY, CONSIDER ANTERIOR ISCHEMIA ABNORMAL ECG WHEN COMPARED WITH ECG OF 27-AUG-2018 18:32, NO SIGNIFICANT CHANGE WAS FOUND Confirmed by PHANI SELLERS MD ([id number]) on 08/28/2018 8:48:28 AM Referred By: Confirmed By:PHANI SELLERS MD
--- NOTE | 2018-08-28 08:49 | EKG ---
Test Reason : Blood Pressure : / mmHG Vent. Rate : 127 BPM Atrial Rate : 127 BPM P-R Int : 128 ms QRS Dur : 062 ms QT Int : 292 ms P-R-T Axes : 071 071 079 degrees QTc Int : 424 ms POOR DATA QUALITY, INTERPRETATION MAY BE ADVERSELY AFFECTED SINUS TACHYCARDIA POSSIBLE LEFT ATRIAL ENLARGEMENT NONSPECIFIC ST ABNORMALITY ABNORMAL ECG WHEN COMPARED WITH ECG OF 13-MAY-2018 21:23, VENT. RATE HAS INCREASED BY [address] NO LONGER DEPRESSED IN INFERIOR LEADS ST NOW DEPRESSED IN ANTERIOR LEADS ST NO LONGER ELEVATED IN LATERAL LEADS Confirmed by MARLO JENKINS, PHANI ([id number]) on 08/28/2018 8:48:38 AM Referred By: Confirmed By:PHANI SELLERS MD
[2018-08-28] MEDS: POTASSIUM CHLORIDE ORAL LIQUID 20 MEQ/15 ML GT SCH (11:47)
[2018-08-28] MEDS: SIMETHICONE 40 MG/0.6 ML BOTTLE GT SCH ×4 (11:47→22:17)
[2018-08-28] MEDS: ZINC OXIDE 20% TOPICAL OINTMENT 30 GM TUBE TP SCH ×2 (11:47→22:20)
[2018-08-28] MEDS: LACTOBACILLUS ACIDOPHILUS 1 TABLET GT SCH ×2 (11:48→22:18)
[2018-08-28] MEDS: POLYETHYLENE GLYCOL 3350 119 GM BTL PO SCH (11:48)
[2018-08-28 12:28] LABS: URINE APPEARANCE CLEAR; URINE BILIRUBIN NEGATIVE (NEGATIVE); URINE COLOR YELLOW; URINE GLUCOSE (UA) NEGATIVE (NEGATIVE)
[2018-08-28 12:29] LABS: URINE NITRITE NEGATIVE (NEGATIVE); URINE PROTEIN NEGATIVE (NEGATIVE); URINE UROBILINOGEN 0.2 mg/dL (0.2-1.0)
[2018-08-28 12:30] LABS: URINE LEUK ESTERASE NEGATIVE (NEGATIVE)
--- NOTE | 2018-08-28 13:43 | PN ---
Progress Note (short form) - Note Progress Note: Patient is a 38yo male, Vital Signs Temperature 98.9 F 08/28/18 08:00 Pulse Rate 115 H 08/28/18 08:00 Respiratory Rate 20 08/28/18 08:00 Blood Pressure 137/85 08/28/18 08:00 O2 Sat by Pulse Oximetry (%) 100 08/28/18 08:00 GENERAL: Awake, alert, in no acute distress. Noisy breathing noted HEAD: Normal with no signs of trauma. NECK: Normal range of motion, supple without lymphadenopathy, JVD, or masses. LUNGS: Breath sounds equal, coarse breath sounds b/l. No wheezes, and no crackles. HEART: Regular rate and rhythm, normal S1 and S2 without murmur, rub or gallop. ABDOMEN: Soft, nontender, not distended, normoactive bowel sounds, no guarding, no rebound, no masses. No hepatomegaly or splenomegaly. LOWER EXTREMITIES: 2+ pulses, warm, well-perfused. No calf tenderness. No peripheral edema. NEUROLOGICAL: Cranial nerves II-X intact. Normal speech. Normal gait. PSYCHIATRIC: Cooperative. Good eye contact. Appropriate mood and affect. SKIN: Warm, dry, normal turgor, no rashes or lesions noted, normal capillary refill. CBCD WBC 10.0 K/mm3 (4.0-10.0) 08/28/18 06:45 RBC 2.86 M/mm3 (4.00-5.60) L 08/28/18 06:45 Hgb 7.1 GM/dL (11.7-16.9) L 08/28/18 06:45 Hct 21.9 % (35.4-49) L 08/28/18 06:45 MCV 76.6 fl (80-96) L 08/28/18 06:45 MCHC 32.3 g/dl (32.0-35.9) 08/28/18 06:45 RDW 15.9 % (11.9-15.9) 08/28/18 06:45 Plt Count 289 K/MM3 (134-434) 08/27/18 16:50 MPV 7.0 fl (7.5-11.1) L 08/28/18 06:45 CMP Sodium 139 mmol/L (136-145) 08/28/18 06:45 Potassium 3.5 mmol/L (3.5-5.1) 08/28/18 06:45 Chloride 106 mmol/L (98-107) 08/28/18 06:45 Carbon Dioxide 21 mmol/L (21-32) 08/28/18 06:45 Anion Gap 13 MMOL/L (8-16) 08/28/18 06:45 BUN 8.7 mg/dL (7-18) 08/28/18 06:45 Creatinine 0.2 mg/dL (0.55-1.3) L 08/28/18 06:45 Random Glucose 89 mg/dL (74-106) 08/28/18 06:45 Calcium 7.8 mg/dL (8.5-10.1) L 08/28/18 06:45 Total Bilirubin 0.7 mg/dL (0.2-1) 08/28/18 06:45 AST 10 U/L (15-37) L 08/28/18 06:45 ALT 12 U/L (13-61) L 08/28/18 06:45 Alkaline Phosphatase 69 U/L (45-117) 08/28/18 06:45 Total Protein 6.0 g/dl (6.4-8.2) L 08/28/18 06:45 Albumin 2.4 g/dl (3.4-5.0) L 08/28/18 06:45 CARDIAC ENZYMES Troponin I 0.11 ng/ml (0.00-0.05) H 08/28/18 10:15 Current Medications Generic Name Dose Route Start Last Admin Trade Name Freq PRN Reason Stop Dose Admin Albuterol Sulfate 1 amp 08/28/18 08:28 Ventolin 0.083% Nebulizer Soln - NEB Q4H PRN ASTHMA Atenolol 12.5 mg 08/29/18 07:00 Tenormin - GT AM TOSIN Baclofen 10 mg 08/28/18 14:00 Lioresal - GT TID TOSIN Bisacodyl 10 mg 08/28/18 14:00 Dulcolax Suppository - RC TID TOSIN Clotrimazole 1 applic 08/28/18 14:00 Clotrimazole TP TID TOSIN Levofloxacin 750 mg in 150 mls @ 100 mls/hr 08/28/18 07:23 08/28/18 09:43 Levaquin 750 Mg Premixed Ivpb - IVPB Not Given DAILY [facility] Protocol Metronidazole 500 mg in 100 mls @ 100 mls/hr 08/28/18 10:00 08/28/18 11:30 Flagyl 500mg Premixed Ivpb - IVPB 100 mls/hr Q8H-IV TOSIN Administration Lactobacillus Acidophilus 1 tab 08/28/18 10:00 08/28/18 11:48 Bacid - GT 1 tab BID TOSIN Administration Multi-Ingredient Ointment 1 applic 08/28/18 10:00 08/28/18 11:47 Zinc Oxide TP 1 applic BID TOSIN Administration Non-Formulary Medication 4 mg 08/28/18 14:00 Tiagabine Hcl [Gabitril] GT TID TOSIN Non-Formulary Medication 100 mg 08/28/18 22:00 Zinc Gluconate [Zinc] GT HS TOSIN Polyethylene Glycol 17 gm 08/28/18 10:00 08/28/18 11:48 Miralax (For Daily Use) - PO 17 mg DAILY TOSIN Administration Potassium Chloride 10 meq 08/28/18 10:00 08/28/18 11:47 Potassium Chloride Oral Liquid GT 10 meq DAILY TOSIN Administration Simethicone 40 mg 08/28/18 10:00 08/28/18 11:47 Mylicon Liquid - GT 40 mg QID TOSIN Administration Vancomycin HCl 1,000 mg 08/29/18 06:00 Vancomycin (Pre-Docked) IVPB 08/29/18 06:01 ONCE ONE Protocol Home Medications Medication Instructions Recorded Atenolol [Tenormin] 12.5 mg GT AM 03/03/17 Baclofen 10 mg GT TID 03/03/17 Bisacodyl 10 mg RC TID 03/03/17 Potassium Chloride Oral Soln [KCl 10 meq GT DAILY 03/03/17 Oral Solution] Tizanidine HCl 4 mg PO QID 03/03/17 Clindamycin Topical Solution 1 applic TP DAILY 10/16/17 [Cleocin 1% Topical Solution -] Clotrimazole 1 applic TP TID 10/16/17 Ferrous Sulfate 220 mg GT DAILY 10/16/17 Fluticasone Prop 0.05% Nasal 1 - 2 spray NS DAILY 10/16/17 [Flonase -] Multivit-Minerals/Ferrous Fum 30 ml GT DAILY 10/16/17 [Multivitamin Liquid] Zinc Gluconate [Zinc] 100 mg GT HS 10/16/17 Zinc Oxide 20% Topical Oint 1 applic TP BID 10/16/17 Albuterol 0.083% Nebulizer Lupe 1 neb NEB Q4H PRN 05/14/18 [Ventolin 0.083% Nebulizer Soln -] Calcium Carbonate/Vitamin D3 1 each PO TID 05/14/18 [Oystercal-D 500 mg-400 Unit Tb] Mag Hydrox/Aluminum Hyd/Simeth 355 ml GT Q8H 05/14/18 [Antacid Anti-Gas Liquid] Simethicone Liquid [Mylicon Liquid 40 mg GT QID 05/14/18 -] Tiagabine HCl [Gabitril] 4 mg GT TID 05/14/18 Lactobacillus Acidophilus [Bacid -] 1 tab GT BID tab 05/15/18 Polyethylene Glycol 3350 [Miralax 17 gm PO DAILY bottle 05/15/18 119 gm Btl -]
[2018-08-28] MEDS ORDERED: TIAGABINE HCL 4 MG GT SCH (14:00)
[2018-08-28 14:09] LABS: PLATELET COUNT 309 K/MM3 (134-434)
[2018-08-28] MEDS ORDERED: MAGNESIUM SULF 50% (8.12 MEQ/2 ML-1 GM VIAL) IVPB ONE (14:22)
[2018-08-28] MEDS: CLOTRIMAZOLE 1% 10 ML TOPICAL SOLUTION TP SCH ×2 (15:12→22:19)
[2018-08-28] MEDS: BISACODYL 10 MG SUPP.RECT RC SCH ×2 (15:12→22:15)
[2018-08-28] MEDS: BACLOFEN 10 MG TABLET (FP) GT SCH ×2 (15:53→22:18)
[2018-08-28] MEDS: TIAGABINE HCL 4 MG GT SCH (15:53)
[2018-08-28] MEDS ORDERED: DEXTROSE 5%-0.45% SALINE 990 ML with POTASSIUM CHLORIDE 20 MEQ IVPB SCH (18:45)
[2018-08-28] MEDS ORDERED: DEXTROSE 5%-0.45% SALINE 1,000 ML IV SCH (18:45)
[2018-08-28] MEDS ORDERED: POTASSIUM CHLORIDE 20 MEQ in DEXTROSE 5%-0.45% SALINE 1,000 ML IVPB ONE (19:00)
--- NOTE | 2018-08-28 20:40 | PN ---
Progress Note (short form) - Note Progress Note: ID CONSULT DICTATED R/O ASPIRATION V. HCAP ZOSYN ALLERGY AWAIT C/S EMPIRIC CLINDAMYCIN/ LEVAQUIN
--- NOTE | 2018-08-28 21:37 | CONSULT ---
Consult Consult Specialty:: General Surgery Reason for Consultation:: Decubitus ulcers and Abdominal Distension - History of Present Illness Chief Complaint: ischaial ulcers and abdominal distension History of Present Illness: 38 yo male PMH CP with severe intellectual disability/non-verbal/quadriplegia, seizure disorder, hyperthyroidism, G-tube and J-tube placement, and SBO, who is presenting from [facility] due to dyspnea and respiratory distress. Patient was discharged home after a 2 week stay in [facility] for pneumonia and was noted to be desaturating to the 70's, which prompted the patient's return to the ER. We were called to assess. 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) - Past Surgical History Additional Surgical History: surgical gastrostomy - Alcohol/Substance Use Hx Alcohol Use: No - Smoking History Smoking history: Never smoked Have you smoked in the past 12 months: No - Social History Usual Living Arrangement: [facility] History of Recent Travel: No Home Medications - Allergies Allergies/Adverse Reactions: Allergies Allergy/AdvReac Type Severity Reaction Status Date / Time piperacillin [From Zosyn] Allergy Verified 08/27/18 15:38 tazobactam [From Zosyn] Allergy Verified 08/27/18 15:38 - Home Medications Home Medications: Ambulatory Orders Atenolol [Tenormin] 12.5 mg GT AM 03/03/17 Baclofen 10 mg GT TID 03/03/17 Bisacodyl 10 mg RC TID 03/03/17 Potassium Chloride Oral Soln [KCl Oral Solution] 10 meq GT DAILY 03/03/17 Tizanidine HCl 4 mg PO QID 03/03/17 Clindamycin Topical Solution [Cleocin 1% Topical Solution -] 1 applic TP DAILY 10/16/17 Clotrimazole 1 applic TP TID 10/16/17 Ferrous Sulfate 220 mg GT DAILY 10/16/17 Fluticasone Prop 0.05% Nasal [Flonase -] 1 - 2 spray NS DAILY 10/16/17 Multivit-Minerals/Ferrous Fum [Multivitamin Liquid] 30 ml GT DAILY 10/16/17 Zinc Gluconate [Zinc] 100 mg GT HS 10/16/17 Zinc Oxide 20% Topical Oint 1 applic TP BID 10/16/17 Albuterol 0.083% Nebulizer Lupe [Ventolin 0.083% Nebulizer Soln -] 1 neb NEB Q4H PRN 05/14/18 Calcium Carbonate/Vitamin D3 [Oystercal-D 500 mg-400 Unit Tb] 1 each PO TID Mag Hydrox/Aluminum Hyd/Simeth [Antacid Anti-Gas Liquid] 355 ml GT Q8H 05/14/18 Simethicone Liquid [Mylicon Liquid -] 40 mg GT QID 05/14/18 Tiagabine HCl [Gabitril] 4 mg GT TID 05/14/18 Lactobacillus Acidophilus [Bacid -] 1 tab GT BID tab 05/15/18 Polyethylene Glycol 3350 [Miralax 119 gm Btl -] 17 gm PO DAILY bottle 05/15/18 Review of Systems - Review of Systems Constitutional: reports: Loss of Appetite, Weakness. denies: Chills, Fever Eyes: denies: Blind Spots, Blurred Vision, Recent Change in Vision HENT: denies: Difficult Swallowing, Throat Pain Neck: denies: Decreased ROM, Tenderness Cardiovascular: denies: Chest Pain, Palpitations Respiratory: denies: Cough, SOB Gastrointestinal: denies: Abdominal Pain, Nausea, Rectal Bleeding Genitourinary: denies: Burning, Discharge, Dysuria Breasts: reports: No Symptoms Reported. denies: Pain Musculoskeletal: reports: Other (stiffness and rigidity). denies: Back Pain, Decreased ROM Integumentary: denies: Bruising, Lump Neurological: reports: Confusion, Weakness Endocrine: denies: Excessive Sweating, Unexplained Weight Gain, Unexplained Weight Loss Hematology/Lymphatic: denies: Easily Bruised, Excessive Bleeding Psychiatric: denies: Anxiety, Depression Physical Exam Vital Signs: Vital Signs Temperature 98.8 F 08/28/18 17:00 Pulse Rate 115 H 08/28/18 10:00 Respiratory Rate 20 08/28/18 10:00 Blood Pressure 137/85 08/28/18 10:00 O2 Sat by Pulse Oximetry (%) 100 08/28/18 10:00 Vital Signs Period Temp Pulse Resp BP Sys/Bruce Pulse Ox Last 24 Hr 97.7 F-98.8 F 94-117 - 117-149/72-98 98 Constitutional: Yes: No Distress, Calm, Cachectic, Thin Eyes: Yes: Conjunctiva Clear, EOM Intact HENT: Yes: Atraumatic, Normocephalic Neck: Yes: Supple, Trachea Midline Cardiovascular: Yes: Regular Rate and Rhythm, S1, S2 Respiratory: Yes: Regular, CTA Bilaterally Gastrointestinal: Yes: Soft, Distention, Hypoactive Bowel Sounds. No: Hepatomegaly, Splenomegaly, Tenderness, Epigastrium, Tenderness, Rebound ...Rectal Exam: Yes: Deferred Renal/: No: CVA Tenderness - Left, CVA Tenderness - Right Breast(s): No: Dimpling, Nipple Inversion Musculoskeletal: Yes: Joint Stiffness, Other (cnostracted from discuse all extremities) Extremities: No: Cool, Cyanosis Edema: No Peripheral Pulses WNL: Yes Integumentary: Yes: Pressure Ulcer (left ischical area and gluteral cleft stage 2-3) Wound/Incision: Yes: Clean/Dry, Unapproximated. No: Draining, Reddened, Bleeding Neurological: Yes: Alert, Oriented Psychiatric: Yes: Alert, Oriented Labs: CBC, BMP 08/28/18 06:45 08/28/18 06:45 Imaging - Results X-ray: Report Reviewed, Image Reviewed (non specific bowel pattern) Cat Scan: Report Reviewed, Image Reviewed Problem List - Problems (1) Sacral decubitus ulcer, stage III Assessment/Plan: 38yo male MMP with chronic constipation and ischial decubitus ulcer stage III ( No sign of entercutaneous fistula) PEG which is functional, Now passing large BM , No acute surgical intervention is indicated. Medical management diet as tolerated, optimize protein calories Consider GI for a suitable bowel regimen manual disimpaction as needed Pressure relief q2 hours turning Local wound care to decubitus ulcers consider Pressure relief mattress Thank you for the opportunity to participate in the care of this patient. Code(s): L89.153 - PRESSURE ULCER OF SACRAL REGION, STAGE 3 (2) Anemia Code(s): D64.9 - ANEMIA, UNSPECIFIED (3) Hypoxia Code(s): R09.02 - HYPOXEMIA (4) Quadriplegic infantile cerebral palsy Code(s): G80.8 - OTHER CEREBRAL PALSY (5) Prolonged Q-T interval on ECG Code(s): R94.31 - ABNORMAL ELECTROCARDIOGRAM [ECG] [EKG] (6) Generalized convulsive epilepsy Code(s): G40.309 - GEN IDIOPATHIC EPILEPSY, NOT INTRACTABLE, W/O STAT EPI (7) Profound mental retardation Code(s): F73 - PROFOUND INTELLECTUAL DISABILITIES
[2018-08-28] MEDS ORDERED: PT OWN MED DRAWER 7, Y5N ONE (21:54)
[2018-08-28] MEDS ORDERED: ZINC GLUCONATE 100 MG GT SCH (22:00)
[2018-08-28] MEDS: CLINDAMYCIN 600MG PREMIX IVPB 600 MG/50 ML BAG IVPB SCH (22:12)
[2018-08-29] MEDS ORDERED: PT OWN MED DRAWER 7, Y5N ONE ×6 (00:17→18:22)
[2018-08-29] MEDS: ZINC SULFATE 220 MG CAPSULE (FP) PO SCH ×3 (00:18→21:18)
[2018-08-29] MEDS: TIAGABINE HCL 4 MG GT SCH ×4 (00:18→21:18)
[2018-08-29] MEDS: CLINDAMYCIN 600MG PREMIX IVPB 600 MG/50 ML BAG IVPB SCH ×2 (02:58→10:56)
[2018-08-29] MEDS ORDERED: VANCOMYCIN 1 GM in D5W (PRE-DOCKED) 1,000 MG/250 ML IVPB ONE (06:00)
[2018-08-29] MEDS: ATENOLOL 25 MG TABLET (FP) GT SCH (06:07)
[2018-08-29] MEDS: BACLOFEN 10 MG TABLET (FP) GT SCH ×3 (06:08→21:18)
[2018-08-29] MEDS: BISACODYL 10 MG SUPP.RECT RC SCH ×3 (06:08→21:14)
[2018-08-29] MEDS: CLOTRIMAZOLE 1% 10 ML TOPICAL SOLUTION TP SCH ×3 (06:13→21:20)
[2018-08-29 06:47] LABS: BASO % 0.6 % (0-2.0); EOS % 4.5 % (0-4.5); HEMOGLOBIN 7.3 GM/dL (11.7-16.9); LYMPH % 10.6 % (8-40); MCHC 33.3 g/dl (32.0-35.9); MEAN CELL VOLUME 75.1 fl (80-96); MEAN PLT VOLUME 6.9 fl (7.5-11.1); MONO % 7.2 % (3.8-10.2); NEUT % 77.1 % (42.8-82.8); RBC 2.93 M/mm3 (4.00-5.60); RDW 15.8 % (11.9-15.9); WHITE BLOOD COUNT 7.7 K/mm3 (4.0-10.0)
[2018-08-29] MEDS: POTASSIUM CHLORIDE ORAL LIQUID 20 MEQ/15 ML GT SCH (10:56)
[2018-08-29] MEDS: SIMETHICONE 40 MG/0.6 ML BOTTLE GT SCH ×4 (10:56→21:18)
[2018-08-29] MEDS: SCOPOLAMINE HYDROBROMIDE 1 PATCH PATCH.TD72 TD SCH (10:58)
[2018-08-29] MEDS: LACTOBACILLUS ACIDOPHILUS 1 TABLET GT SCH ×2 (10:58→21:18)
[2018-08-29] MEDS: POLYETHYLENE GLYCOL 3350 119 GM BTL PO SCH (10:59)
[2018-08-29] MEDS: ZINC OXIDE 20% TOPICAL OINTMENT 30 GM TUBE TP SCH ×2 (10:59→21:19)
--- NOTE | 2018-08-29 14:26 | PN ---
Physical Exam: SUBJECTIVE: Patient seen and examined at bedside. No acute events overnight. OBJECTIVE: Vital Signs Period Temp Pulse Resp BP Sys/Bruce Pulse Ox Last 24 Hr 97.7 F-98.8 F 94-117 20-22 117-149/72-98 98 GENERAL: No acute distress. Contracted. HEAD: AT/NC EYES: EOMI Sclera Clear ENT: Protruding tongue. MMM NECK: Trachea midline, full range of motion, supple. LUNGS: Coarse breath sounds throughout HEART: RRR S1S2 ABDOMEN: Distended, colostomy bag in place, erythema around bag. Tympanic to percussion. EXTREMITIES: Contracted upper/lower extremities. NEUROLOGICAL: Cranial nerves II through XII grossly intact. Normal speech, gait not observed. PSYCH: Normal mood, normal affect. SKIN: Warm, dry, normal turgor, no rashes or lesions noted Laboratory Results - last 24 hr 08/29/18 08/29/18 06:00 06:00 WBC 7.7 RBC 2.93 L Hgb 7.3 L Hct 22.0 L MCV 75.1 L MCH 25.0 L MCHC 33.3 RDW 15.8 Plt Count 374.0 D MPV 6.9 L Absolute Neuts (auto) 5.9 Neutrophils % 77.1 Lymphocytes % 10.6 D Monocytes % 7.2 D Eosinophils % 4.5 D Basophils % 0.6 Blood Type A POSITIVE Antibody Screen Negative Active Medications Generic Name Dose Route Start Last Admin Trade Name Freq PRN Reason Stop Dose Admin Albuterol Sulfate 1 amp 08/28/18 08:28 Ventolin 0.083% Nebulizer Soln - NEB Q4H PRN ASTHMA Atenolol 12.5 mg 08/29/18 07:00 08/29/18 06:07 Tenormin - GT 12.5 mg AM TOSIN Administration Baclofen 10 mg 08/28/18 14:00 08/29/18 06:08 Lioresal - GT 10 mg TID TOSIN Administration Bisacodyl 10 mg 08/28/18 14:00 08/29/18 06:08 Dulcolax Suppository - RC 10 mg TID TOSIN Administration Clotrimazole 1 applic 08/28/18 14:00 08/29/18 06:13 Clotrimazole TP 1 applic TID TOSIN Administration Levofloxacin 750 mg in 150 mls @ 100 mls/hr 08/28/18 07:23 08/29/18 10:56 Levaquin 750 Mg Premixed Ivpb - IVPB 100 mls/hr DAILY TOSIN Administration Protocol Potassium Chloride 20 meq/ 1,010 mls @ 42 mls/hr 08/28/18 19:00 08/28/18 22: 19 Dextrose/Sodium Chloride IVPB 08/29/18 19:02 42 mls/hr ONCE ONE Administration Clindamycin Phosphate 600 mg in 50 mls @ 100 mls/hr 08/28/18 20:45 08/29/18 10:56 Cleocin 600 Mg Premix Ivpb - IVPB 100 mls/hr Q8H-IV TOSIN Administration Protocol Lactobacillus Acidophilus 1 tab 08/28/18 10:00 08/29/18 10:58 Bacid - GT 1 tab BID TOSIN Administration Multi-Ingredient Ointment 1 applic 08/28/18 10:00 08/29/18 10:59 Zinc Oxide TP 1 applic BID TOSIN Administration Non-Formulary Medication 4 mg 08/28/18 15:45 08/29/18 06:07 Tiagabine Hcl [Gabitril] GT 4 mg TID TOSIN Administration Polyethylene Glycol 17 gm 08/28/18 10:00 08/29/18 10:59 Miralax (For Daily Use) - PO 17 mg DAILY TOSIN Administration Potassium Chloride 10 meq 08/28/18 10:00 08/29/18 10:56 Potassium Chloride Oral Liquid GT 10 meq DAILY TOSIN Administration Scopolamine HBr 1 patch 08/29/18 08:00 08/29/18 10:58 Transderm-Scop - TD 1 patch Q72H TOSIN Administration Simethicone 40 mg 08/28/18 10:00 08/28/18 22:17 Mylicon Liquid - GT 40 mg QID TOSIN Administration Zinc Sulfate 220 mg 08/28/18 22:00 08/29/18 10:58 Orazinc - PO 220 mg BID TOSIN Administration ASSESSMENT/PLAN: The patient is a 38 yo M w/ PMH of CP with severe intellectual disability/non- verbal/quadriplegia, seizure disorder, hyperthyroidism, G-tube and J-tube placement, and SBO, who is presenting from [facility] due to dyspnea and respiratory distress. #SOB and hypoxia in the field likely 2/2 pna -s/p Vanc in ED -Empriic treatment w/ Levaquin, Clindamycin. Blood and Urine cultures both negative. -patient has zosyn allergy -ID on board- Dr Chandler #Troponemia -Likely 2/2 demand ischemia in the setting of increased work of breathing and infection -0.21 peak, trended down to 0.11. #Anemia -Hb 12 from 04/2018, today 7.3 -FOBT negative -maintain normal transfusion thresholds #FEN -D5 1/2 NS w/ 20 mEQ KCL -Monitor Electrolytes -NPO #DVT/GI ppx -SCDs -Protonix BID #Dispo - tele Visit type - Emergency Visit Emergency Visit: Yes ED Registration Date: 08/28/18 Care time: The patient presented to the Emergency Department on the above date and was hospitalized for further evaluation of their emergent condition. - New Patient This patient is new to me today: Yes Date on this admission: 08/29/18 - Critical Care Critical Care patient: No - Discharge Referral Referred to [facility] Med [facility] No
--- NOTE | 2018-08-29 17:38 | PN ---
Teaching Attending Note Name of Resident: Papi Zambrano ATTENDING PHYSICIAN STATEMENT I saw and evaluated the patient. I reviewed the resident's note and discussed the case with the resident. I agree with the resident's findings and plan as documented. SUBJECTIVE: Patient is comfortable with no acute distress. OBJECTIVE: Vital Signs Temperature 98.2 F 08/29/18 13:23 Pulse Rate 94 H 08/29/18 13:23 Respiratory Rate 20 08/29/18 13:23 Blood Pressure 123/81 08/29/18 13:23 O2 Sat by Pulse Oximetry (%) 98 08/28/18 21:00 GENERAL: No acute distress. Contracted. HEAD: AT/NC EYES: EOMI Sclera Clear ENT: Protruding tongue. with MMM NECK: Trachea midline, full range of motion, supple. LUNGS: Coarse breath sounds throughout HEART: RRR S1S2, ABDOMEN: Distended, colostomy bag in place, erythema due to irritation of the colostomy bag. EXTREMITIES: Contracted upper/lower extremities. NEUROLOGICAL: Cranial nerves II through XII grossly intact. contracted all the lower extremities. PSYCH: Normal mood, normal affect. SKIN: Warm, dry, normal turgor, decibutus ulcer stage 3 CBCD WBC 7.7 K/mm3 (4.0-10.0) 08/29/18 06:00 RBC 2.93 M/mm3 (4.00-5.60) L 08/29/18 06:00 Hgb 7.3 GM/dL (11.7-16.9) L 08/29/18 06:00 Hct 22.0 % (35.4-49) L 08/29/18 06:00 MCV 75.1 fl (80-96) L 08/29/18 06:00 MCHC 33.3 g/dl (32.0-35.9) 08/29/18 06:00 RDW 15.8 % (11.9-15.9) 08/29/18 06:00 Plt Count 374.0 K/MM3 (134-434) D 08/29/18 06:00 MPV 6.9 fl (7.5-11.1) L 08/29/18 06:00 CMP Sodium 139 mmol/L (136-145) 08/28/18 06:45 Potassium 3.5 mmol/L (3.5-5.1) 08/28/18 06:45 Chloride 106 mmol/L (98-107) 08/28/18 06:45 Carbon Dioxide 21 mmol/L (21-32) 08/28/18 06:45 Anion Gap 13 MMOL/L (8-16) 08/28/18 06:45 BUN 8.7 mg/dL (7-18) 08/28/18 06:45 Creatinine 0.2 mg/dL (0.55-1.3) L 08/28/18 06:45 Random Glucose 89 mg/dL (74-106) 08/28/18 06:45 Calcium 7.8 mg/dL (8.5-10.1) L 08/28/18 06:45 Total Bilirubin 0.7 mg/dL (0.2-1) 08/28/18 06:45 AST 10 U/L (15-37) L 08/28/18 06:45 ALT 12 U/L (13-61) L 08/28/18 06:45 Alkaline Phosphatase 69 U/L (45-117) 08/28/18 06:45 Total Protein 6.0 g/dl (6.4-8.2) L 08/28/18 06:45 Albumin 2.4 g/dl (3.4-5.0) L 08/28/18 06:45 CARDIAC ENZYMES Troponin I 0.11 ng/ml (0.00-0.05) H 08/28/18 10:15 Current Medications Generic Name Dose Route Start Last Admin Trade Name Freq PRN Reason Stop Dose Admin Albuterol Sulfate 1 amp 08/28/18 08:28 Ventolin 0.083% Nebulizer Soln - NEB Q4H PRN ASTHMA Atenolol 12.5 mg 08/29/18 07:00 08/29/18 06:07 Tenormin - GT 12.5 mg AM TOSIN Administration Baclofen 10 mg 08/28/18 14:00 08/29/18 14:57 Lioresal - GT 10 mg TID TOSIN Administration Bisacodyl 10 mg 08/28/18 14:00 08/29/18 14:59 Dulcolax Suppository - RC 10 mg TID TOSIN Administration Clindamycin HCl 300 mg 08/29/18 19:00 Cleocin - GT TID TOSIN Clotrimazole 1 applic 08/28/18 14:00 08/29/18 14:59 Clotrimazole TP 1 applic TID TOSIN Administration Levofloxacin 750 mg in 150 mls @ 100 mls/hr 08/28/18 07:23 08/29/18 10:56 Levaquin 750 Mg Premixed Ivpb - IVPB 100 mls/hr DAILY TOSIN Administration Protocol Potassium Chloride 20 meq/ 1,010 mls @ 42 mls/hr 08/28/18 19:00 08/28/18 22: 19 Dextrose/Sodium Chloride IVPB 08/29/18 19:02 42 mls/hr ONCE ONE Administration Lactobacillus Acidophilus 1 tab 08/28/18 10:00 08/29/18 10:58 Bacid - GT 1 tab BID TOSIN Administration Multi-Ingredient Ointment 1 applic 08/28/18 10:00 08/29/18 10:59 Zinc Oxide TP 1 applic BID TOSIN Administration Non-Formulary Medication 4 mg 08/28/18 15:45 08/29/18 15:17 Tiagabine Hcl [Gabitril] GT 4 mg TID TOSIN Administration Polyethylene Glycol 17 gm 08/28/18 10:00 08/29/18 10:59 Miralax (For Daily Use) - PO 17 mg DAILY TOSIN Administration Potassium Chloride 10 meq 08/28/18 10:00 08/29/18 10:56 Potassium Chloride Oral Liquid GT 10 meq DAILY TOSIN Administration Scopolamine HBr 1 patch 08/29/18 08:00 08/29/18 10:58 Transderm-Scop - TD 1 patch Q72H TOSIN Administration Simethicone 40 mg 08/28/18 10:00 08/29/18 14:54 Mylicon Liquid - GT 40 mg QID TOSIN Administration Zinc Sulfate 220 mg 08/28/18 22:00 08/29/18 10:58 Orazinc - PO 220 mg BID TOSIN Administration Home Medications Medication Instructions Recorded Atenolol [Tenormin] 12.5 mg GT AM 03/03/17 Baclofen 10 mg GT TID 03/03/17 Bisacodyl 10 mg RC TID 03/03/17 Potassium Chloride Oral Soln [KCl 10 meq GT DAILY 03/03/17 Oral Solution] Tizanidine HCl 4 mg PO QID 03/03/17 Clindamycin Topical Solution 1 applic TP DAILY 10/16/17 [Cleocin 1% Topical Solution -] Clotrimazole 1 applic TP TID 10/16/17 Ferrous Sulfate 220 mg GT DAILY 10/16/17 Fluticasone Prop 0.05% Nasal 1 - 2 spray NS DAILY 10/16/17 [Flonase -] Multivit-Minerals/Ferrous Fum 30 ml GT DAILY 10/16/17 [Multivitamin Liquid] Zinc Gluconate [Zinc] 100 mg GT HS 10/16/17 Zinc Oxide 20% Topical Oint 1 applic TP BID 10/16/17 Albuterol 0.083% Nebulizer Lupe 1 neb NEB Q4H PRN 05/14/18 [Ventolin 0.083% Nebulizer Soln -] Calcium Carbonate/Vitamin D3 1 each PO TID 05/14/18 [Oystercal-D 500 mg-400 Unit Tb] Mag Hydrox/Aluminum Hyd/Simeth 355 ml GT Q8H 05/14/18 [Antacid Anti-Gas Liquid] Simethicone Liquid [Mylicon Liquid 40 mg GT QID 05/14/18 -] Tiagabine HCl [Gabitril] 4 mg GT TID 05/14/18 Lactobacillus Acidophilus [Bacid -] 1 tab GT BID tab 05/15/18 Polyethylene Glycol 3350 [Miralax 17 gm PO DAILY bottle 05/15/18 119 gm Btl -] ASSESSMENT AND PLAN: Pt is a 38 y/o M with mental retardation, congenital quadriplegia, cerebral palsy, seizures, hyperthyroidism, GERD, and pneumonia who presented from [facility] with rapid breathing and hypoxia to the 70s per report. Pt was evidently discharged today from [facility] after 2 weeks of treatment for PNA. He returned to [facility] and was found to be hypoxic and tachypnic. # Acute SOB with possible HCAP on Leavquin and Clindamycin , ID on the case, on lactobacillus, on transderm patch q72h, neb treatments. 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
[2018-08-29] MEDS: CLINDAMYCIN HCL 150 MG CAPSULE (FP) GT SCH ×2 (18:39→21:18)
--- NOTE | 2018-08-29 20:07 | CONS ---
DATE OF CONSULTATION: DATE OF DICTATION: 08/29/2018 The patient is a 38-year-old male, history of cerebral palsy, mental retardation, admitted from [facility] with shortness of breath. History was obtained from the chart, as he cannot give a history. He was recently hospitalized at [facility] for pneumonia. He was discharged back to [facility]. On the day of admission, he was noted to be short of breath and hypoxemic. He was transferred to the emergency room at [facility], where he was noted to be hypoxemic with an O2 saturation in the 70s. Chest x-ray showed a possible left lower lobe infiltrate. Cultures were obtained. He was empirically treated with vancomycin, Levaquin, and Flagyl. The patient has a history of PENICILLIN allergy. He is awake but not responsive. His breathing is nonlabored at this time. Past medical history positive for cerebral palsy, mental retardation, functional quadriparesis, seizure disorder, thyroid disease. PAST SURGICAL HISTORY: Status post feeding gastrostomy, small-bowel obstruction, status post colostomy. Allergies to ZOSYN. Medications include Tylenol, atenolol, baclofen, Levaquin, vancomycin. SOCIAL HISTORY: He is a jail resident, totally dependent in activities of daily living. LABORATORY DATA: White blood cell count 10.0, hematocrit 21.9, platelets 309. BUN 8, creatinine 0.2. Urinalysis negative. Culture is pending. Influenza swab negative. RSV swab negative. PHYSICAL EXAMINATION: General: He is awake but not verbally responsive. Vital Signs: Temperature 98.9. BP 137/85. Pulse 115, regular. Respirations 20 per minute. Eyes: Sclerae anicteric. Heart Sounds: S1, S2. Lungs: Grossly clear. Abdomen: Soft. Positive ostomy and feeding gastrostomy tube. Extremities: Negative for edema. IMPRESSION: 1. Rule out aspiration versus healthcare-acquired pneumonia. 2. Cerebral palsy, mental retardation. 3. History of small-bowel obstruction, status post colostomy. 4. PENICILLIN allergy. Pending sepsis workup, empiric antibiotic coverage with clindamycin and Levaquin. Supportive measures. Will follow. Thank you for the kind referral. MADELINE MARAVILLA M.D. [id number]
[2018-08-29] MEDS ORDERED: CLINDAMYCIN HCL 150 MG CAPSULE (FP) GT SCH ×2 (22:00)
[2018-08-30] MEDS: CLINDAMYCIN HCL 150 MG CAPSULE (FP) GT SCH ×3 (05:20→22:39)
[2018-08-30] MEDS: TIAGABINE HCL 4 MG GT SCH ×3 (05:20→22:39)
[2018-08-30] MEDS: BACLOFEN 10 MG TABLET (FP) GT SCH ×3 (05:21→22:39)
[2018-08-30] MEDS: BISACODYL 10 MG SUPP.RECT RC SCH ×3 (05:22→21:49)
[2018-08-30] MEDS: ATENOLOL 25 MG TABLET (FP) GT SCH (06:05)
[2018-08-30] MEDS: CLOTRIMAZOLE 1% 10 ML TOPICAL SOLUTION TP SCH ×3 (06:05→22:45)
[2018-08-30 06:30] LABS: HEMATOCRIT 25.4 % (35.4-49); HEMOGLOBIN 8.4 GM/dL (11.7-16.9); MCH 24.7 pg (25.7-33.7); MCHC 33.1 g/dl (32.0-35.9); MEAN CELL VOLUME 74.6 fl (80-96); MEAN PLT VOLUME 7.2 fl (7.5-11.1); PLATELET COUNT 363 K/MM3 (134-434); RDW 16.1 % (11.9-15.9); WHITE BLOOD COUNT 6.5 K/mm3 (4.0-10.0)
[2018-08-30 06:50] LABS: CALCIUM 8.7 mg/dL (8.5-10.1); CREATININE 0.3 mg/dL (0.55-1.3); MAGNESIUM 1.4 mg/dL (1.8-2.4); PHOSPHOROUS 2.7 mg/dL (2.5-4.9); POTASSIUM 4.2 mmol/L (3.5-5.1)
[2018-08-30 06:51] LABS: BLOOD UREA NITROGEN 1.7 mg/dL (7-18)
[2018-08-30] MEDS ORDERED: PT OWN MED DRAWER 7, Y5N ONE ×3 (10:17→19:59)
[2018-08-30] MEDS: ZINC SULFATE 220 MG CAPSULE (FP) PO SCH ×2 (10:29→22:38)
[2018-08-30] MEDS: POTASSIUM CHLORIDE ORAL LIQUID 20 MEQ/15 ML GT SCH (10:29)
[2018-08-30] MEDS: ZINC OXIDE 20% TOPICAL OINTMENT 30 GM TUBE TP SCH ×2 (10:50→22:45)
[2018-08-30] MEDS: LACTOBACILLUS ACIDOPHILUS 1 TABLET GT SCH ×2 (10:50→22:39)
[2018-08-30] MEDS: SIMETHICONE 40 MG/0.6 ML BOTTLE GT SCH ×4 (10:50→22:38)
[2018-08-30] MEDS: POLYETHYLENE GLYCOL 3350 119 GM BTL PO SCH (11:18)
--- NOTE | 2018-08-30 14:16 | PN ---
Teaching Attending Note Name of Resident: Papi Zambrano ATTENDING PHYSICIAN STATEMENT I saw and evaluated the patient. I reviewed the resident's note and discussed the case with the resident. I agree with the resident's findings and plan as documented. SUBJECTIVE: Patient is better today, no fever or chills, no shortness of breath. OBJECTIVE: Vital Signs Temperature 97.5 F L 08/30/18 10:00 Pulse Rate 96 H 08/30/18 10:00 Respiratory Rate 21 H 08/30/18 10:00 Blood Pressure 119/77 08/30/18 10:00 O2 Sat by Pulse Oximetry (%) 98 08/29/18 20:02 GENERAL: No acute distress. Contracted. HEAD: AT/NC, EYES: EOMI Sclera Clear. ENT: Protruding tongue. with MMM NECK: Trachea midline, full range of motion, supple. LUNGS: Coarse breath sounds throughout HEART: RRR S1S2, ABDOMEN:BS positive, soft, colostomy bag in place, erythema due to irritation of the colostomy bag seen by EXTREMITIES: Contracted upper/lower extremities. NEUROLOGICAL: Cranial nerves II through XII grossly intact. contracted all the lower extremities. PSYCH: Normal mood, normal affect. SKIN: Warm, dry, normal turgor, decibutus ulcer stage 3 CBCD WBC 6.5 K/mm3 (4.0-10.0) 08/30/18 05:45 RBC 3.40 M/mm3 (4.00-5.60) L 08/30/18 05:45 Hgb 8.4 GM/dL (11.7-16.9) L 08/30/18 05:45 Hct 25.4 % (35.4-49) L D 08/30/18 05:45 MCV 74.6 fl (80-96) L 08/30/18 05:45 MCHC 33.1 g/dl (32.0-35.9) 08/30/18 05:45 RDW 16.1 % (11.9-15.9) H 08/30/18 05:45 Plt Count 363 K/MM3 (134-434) 08/30/18 05:45 MPV 7.2 fl (7.5-11.1) L 08/30/18 05:45 CMP Sodium 139 mmol/L (136-145) 08/30/18 05:45 Potassium 4.2 mmol/L (3.5-5.1) 08/30/18 05:45 Chloride 100 mmol/L (98-107) 08/30/18 05:45 Carbon Dioxide 31 mmol/L (21-32) 08/30/18 05:45 Anion Gap 8 MMOL/L (8-16) 08/30/18 05:45 BUN 1.7 mg/dL (7-18) L* 08/30/18 05:45 Creatinine 0.3 mg/dL (0.55-1.3) L 08/30/18 05:45 Random Glucose 75 mg/dL (74-106) 08/30/18 05:45 Calcium 8.7 mg/dL (8.5-10.1) 08/30/18 05:45 Total Bilirubin 0.7 mg/dL (0.2-1) 08/28/18 06:45 AST 10 U/L (15-37) L 08/28/18 06:45 ALT 12 U/L (13-61) L 08/28/18 06:45 Alkaline Phosphatase 69 U/L (45-117) 08/28/18 06:45 Total Protein 6.0 g/dl (6.4-8.2) L 08/28/18 06:45 Albumin 2.4 g/dl (3.4-5.0) L 08/28/18 06:45 CARDIAC ENZYMES Troponin I 0.11 ng/ml (0.00-0.05) H 08/28/18 10:15 Current Medications Generic Name Dose Route Start Last Admin Trade Name Freq PRN Reason Stop Dose Admin Albuterol Sulfate 1 amp 08/28/18 08:28 Ventolin 0.083% Nebulizer Soln - NEB Q4H PRN ASTHMA Atenolol 12.5 mg 08/29/18 07:00 08/30/18 06:05 Tenormin - GT 12.5 mg AM TOSIN Administration Baclofen 10 mg 08/28/18 14:00 08/30/18 05:21 Lioresal - GT 10 mg TID TOSIN Administration Bisacodyl 10 mg 08/28/18 14:00 08/30/18 05:22 Dulcolax Suppository - RC 10 mg TID TOSIN Administration Clindamycin HCl 300 mg 08/29/18 19:00 08/30/18 05:20 Cleocin - GT 300 mg TID TOSIN Administration Clotrimazole 1 applic 08/28/18 14:00 08/30/18 06:05 Clotrimazole TP 1 applic TID TOSIN Administration Levofloxacin 750 mg in 150 mls @ 100 mls/hr 08/28/18 07:23 08/30/18 11:18 Levaquin 750 Mg Premixed Ivpb - IVPB Not Given DAILY [facility] Protocol Lactobacillus Acidophilus 1 tab 08/28/18 10:00 08/30/18 10:50 Bacid - GT 1 tab BID TOSIN Administration Multi-Ingredient Ointment 1 applic 08/28/18 10:00 08/30/18 10:50 Zinc Oxide TP 1 applic BID TOSIN Administration Non-Formulary Medication 4 mg 08/28/18 15:45 08/30/18 05:20 Tiagabine Hcl [Gabitril] GT 4 mg TID TOSIN Administration Polyethylene Glycol 17 gm 08/28/18 10:00 08/30/18 11:18 Miralax (For Daily Use) - PO Not Given DAILY TOSIN Potassium Chloride 10 meq 08/28/18 10:00 08/30/18 10:29 Potassium Chloride Oral Liquid GT 10 meq DAILY TOSIN Administration Scopolamine HBr 1 patch 08/29/18 08:00 08/29/18 10:58 Transderm-Scop - TD 1 patch Q72H TOSIN Administration Simethicone 40 mg 08/28/18 10:00 08/30/18 10:50 Mylicon Liquid - GT 40 mg QID TOSIN Administration Zinc Sulfate 220 mg 08/28/18 22:00 08/30/18 10:29 Orazinc - PO 220 mg BID TOSIN Administration Home Medications Medication Instructions Recorded Atenolol [Tenormin] 12.5 mg GT AM 03/03/17 Baclofen 10 mg GT TID 03/03/17 Bisacodyl 10 mg RC TID 03/03/17 Potassium Chloride Oral Soln [KCl 10 meq GT DAILY 03/03/17 Oral Solution] Tizanidine HCl 4 mg PO QID 03/03/17 Clindamycin Topical Solution 1 applic TP DAILY 10/16/17 [Cleocin 1% Topical Solution -] Clotrimazole 1 applic TP TID 10/16/17 Ferrous Sulfate 220 mg GT DAILY 07/27/18 Fluticasone Prop 0.05% Nasal 1 - 2 spray NS DAILY 10/16/17 [Flonase -] Multivit-Minerals/Ferrous Fum 30 ml GT DAILY 10/16/17 [Multivitamin Liquid] Zinc Gluconate [Zinc] 100 mg GT HS 10/16/17 Zinc Oxide 20% Topical Oint 1 applic TP BID 10/16/17 Albuterol 0.083% Nebulizer Lupe 1 neb NEB Q4H PRN 05/14/18 [Ventolin 0.083% Nebulizer Soln -] Calcium Carbonate/Vitamin D3 1 each PO TID 05/14/18 [Oystercal-D 500 mg-400 Unit Tb] Mag Hydrox/Aluminum Hyd/Simeth 355 ml GT Q8H 05/14/18 [Antacid Anti-Gas Liquid] Simethicone Liquid [Mylicon Liquid 40 mg GT QID 05/14/18 -] Tiagabine HCl [Gabitril] 4 mg GT TID 05/14/18 Lactobacillus Acidophilus [Bacid -] 1 tab GT BID tab 05/15/18 Polyethylene Glycol 3350 [Miralax 17 gm PO DAILY bottle 05/15/18 119 gm Btl -] ASSESSMENT AND PLAN: Pt is a 38 y/o M with mental retardation, congenital quadriplegia, cerebral palsy, seizures, hyperthyroidism, GERD, and pneumonia who presented from [facility] with rapid breathing and hypoxia to the 70s per report. Pt was evidently discharged today from [facility] after 2 weeks of treatment for PNA. He returned to [facility] and was found to be hypoxic and tachypnic. # Acute SOB due to possible HCAP on Leavquin and Clindamycin continue , no IV access will change to oral pills and monitor, ID on the case, on lactobacillus, on transderm patch q72h, neb treatments. 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
--- NOTE | 2018-08-30 15:43 | CON.GI ---
Consult Consult Specialty:: GI Referred by:: Medicine Reason for Consultation:: constipation - History of Present Illness Chief Complaint: SOB History of Present Illness: 38M with h/o cerebral palsy presenting for hypoxia, being treated for HCAP. J tube in place, h/o G tube (removed). GI consulted for acute abdominal distension that appears to have happened while hospitalized. No distension noted in admission notes. 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) - Past Surgical History Additional Surgical History: surgical gastrostomy - Alcohol/Substance Use Hx Alcohol Use: No - Smoking History Smoking history: Never smoked Have you smoked in the past 12 months: No - Social History Usual Living Arrangement: Shelter History of Recent Travel: No Home Medications - Allergies Allergies/Adverse Reactions: Allergies Allergy/AdvReac Type Severity Reaction Status Date / Time piperacillin [From Zosyn] Allergy Verified 08/27/18 15:38 tazobactam [From Zosyn] Allergy Verified 08/27/18 15:38 - Home Medications Home Medications: Ambulatory Orders Atenolol [Tenormin] 12.5 mg GT AM 03/03/17 Baclofen 10 mg GT TID 03/03/17 Bisacodyl 10 mg RC TID 03/03/17 Potassium Chloride Oral Soln [KCl Oral Solution] 10 meq GT DAILY 03/03/17 Tizanidine HCl 4 mg PO QID 03/03/17 Clindamycin Topical Solution [Cleocin 1% Topical Solution -] 1 applic TP DAILY 10/16/17 Clotrimazole 1 applic TP TID 10/16/17 Ferrous Sulfate 220 mg GT DAILY 10/16/17 Fluticasone Prop 0.05% Nasal [Flonase -] 1 - 2 spray NS DAILY 10/16/17 Multivit-Minerals/Ferrous Fum [Multivitamin Liquid] 30 ml GT DAILY 10/16/17 Zinc Gluconate [Zinc] 100 mg GT HS 10/16/17 Zinc Oxide 20% Topical Oint 1 applic TP BID 10/16/17 Albuterol 0.083% Nebulizer Lupe [Ventolin 0.083% Nebulizer Soln -] 1 neb NEB Q4H PRN 05/14/18 Calcium Carbonate/Vitamin D3 [Oystercal-D 500 mg-400 Unit Tb] 1 each PO TID Mag Hydrox/Aluminum Hyd/Simeth [Antacid Anti-Gas Liquid] 355 ml GT Q8H 05/14/18 Simethicone Liquid [Mylicon Liquid -] 40 mg GT QID 05/14/18 Tiagabine HCl [Gabitril] 4 mg GT TID 05/14/18 Lactobacillus Acidophilus [Bacid -] 1 tab GT BID tab 05/15/18 Polyethylene Glycol 3350 [Miralax 119 gm Btl -] 17 gm PO DAILY bottle 05/15/18 Review of Systems Unable to obtain ROS, reason: cerebral palsy Physical Exam-GI Vital Signs: Vital Signs Temperature 98.3 F 08/30/18 15:32 Pulse Rate 94 H 08/30/18 15:32 Respiratory Rate 22 H 08/30/18 15:32 Blood Pressure 135/93 08/30/18 15:32 O2 Sat by Pulse Oximetry (%) 100 08/30/18 09:00 Constitutional: Yes: Well Nourished, No Distress Eyes: Yes: Conjunctiva Clear HENT: Yes: WNL Neck: Yes: WNL Cardiovascular: Yes: WNL, Regular Rate and Rhythm Respiratory: Yes: Regular ...Palpate: Yes: Other (Nontender but tympanitic, G tube stoma draining with surrounding chemical cellulitis, LLQ J tube c/d/i) ...Percussion: Yes: Tympanitic ...Rectal Exam: Yes: Deferred Extremities: Yes: Deformity Neurological: Yes: Other (Nonverbal) Labs: CBC, BMP 08/30/18 05:45 08/30/18 05:45 Imaging - Results X-ray: Report Reviewed Assessment/Plan Abdominal distention - concern given new onset diarrhea in hospital for C. diff , particularly as pt is on clindamycin - check stool for C. diff - repeat abdominal x-ray - hold constipation meds for now Open gastrostomy stoma is causing a chemical cellulitis of abdominal wall - would cover topically with vaseline or some other non-absoptive ointment
--- NOTE | 2018-08-30 16:06 | PN ---
Physical Exam: SUBJECTIVE: Patient seen and examined at bedside. No acute events overnight. I.V came out yesterday evening. OBJECTIVE: Vital Signs Period Temp Pulse Resp BP Sys/Bruce Pulse Ox Last 24 Hr 97.5 F-98.3 F 94-107 20-22 114-139/77-96 98-100 GENERAL:Contracted. At baseline. HEAD: NC/AT EYES: EOMI Sclera Clear ENT: Protruding tongue. MMM LUNGS: Coarse breath sounds throughout HEART: RRR S1S2 ABDOMEN: Distended, colostomy bag off, erythema around bag. EXTREMITIES: Contracted upper/lower extremities. SKIN: excoriation around j tube site. Laboratory Results - last 24 hr 08/29/18 08/30/18 08/30/18 06:00 05:45 05:45 WBC 6.5 RBC 3.40 L Hgb 8.4 L Hct 25.4 L D MCV 74.6 L MCH 24.7 L MCHC 33.1 RDW 16.1 H Plt Count 363 MPV 7.2 L Nucleated RBC % No Result Required. Sodium 139 Potassium 4.2 Chloride 100 Carbon Dioxide 31 Anion Gap 8 BUN 1.7 L* Creatinine 0.3 L Est GFR (CKD-EPI)AfAm 195.17 Est GFR (CKD-EPI)NonAf 168.40 Random Glucose 75 Calcium 8.7 Phosphorus 2.7 Magnesium 1.4 L Active Medications Generic Name Dose Route Start Last Admin Trade Name Freq PRN Reason Stop Dose Admin Albuterol Sulfate 1 amp 08/28/18 08:28 Ventolin 0.083% Nebulizer Soln - NEB Q4H PRN ASTHMA Atenolol 12.5 mg 08/29/18 07:00 08/30/18 06:05 Tenormin - GT 12.5 mg AM TOSIN Administration Baclofen 10 mg 08/28/18 14:00 08/30/18 14:57 Lioresal - GT 10 mg TID TOSIN Administration Bisacodyl 10 mg 08/28/18 14:00 08/30/18 14:20 Dulcolax Suppository - RC Not Given TID TOSIN Clindamycin HCl 300 mg 08/29/18 19:00 08/30/18 14:57 Cleocin - GT 300 mg TID TOSIN Administration Clotrimazole 1 applic 08/28/18 14:00 08/30/18 14:58 Clotrimazole TP 1 applic TID TOSIN Administration Levofloxacin 750 mg in 150 mls @ 100 mls/hr 08/28/18 07:23 08/30/18 11:18 Levaquin 750 Mg Premixed Ivpb - IVPB Not Given DAILY [facility] Protocol Lactobacillus Acidophilus 1 tab 08/28/18 10:00 08/30/18 10:50 Bacid - GT 1 tab BID TOSIN Administration Multi-Ingredient Ointment 1 applic 08/28/18 10:00 08/30/18 10:50 Zinc Oxide TP 1 applic BID TOSIN Administration Non-Formulary Medication 4 mg 08/28/18 15:45 08/30/18 14:57 Tiagabine Hcl [Gabitril] GT 4 mg TID TOSIN Administration Polyethylene Glycol 17 gm 08/28/18 10:00 08/30/18 11:18 Miralax (For Daily Use) - PO Not Given DAILY TOSIN Potassium Chloride 10 meq 08/28/18 10:00 08/30/18 10:29 Potassium Chloride Oral Liquid GT 10 meq DAILY TOSIN Administration Scopolamine HBr 1 patch 08/29/18 08:00 08/29/18 10:58 Transderm-Scop - TD 1 patch Q72H TOSIN Administration Simethicone 40 mg 08/28/18 10:00 08/30/18 14:57 Mylicon Liquid - GT 40 mg QID TOSIN Administration Zinc Sulfate 220 mg 08/28/18 22:00 08/30/18 10:29 Orazinc - PO 220 mg BID TOSIN Administration ASSESSMENT/PLAN: The patient is a 38 yo M w/ PMH of CP with severe intellectual disability/non- verbal/quadriplegia, seizure disorder, hyperthyroidism, G-tube and J-tube placement, and SBO, who is presenting from [place] due to dyspnea and respiratory distress. #SOB and hypoxia in the field likely 2/2 pna -s/p Vanc in ED -Empriic treatment w/ Levaquin, Clindamycin. Blood and Urine cultures both negative. -patient has zosyn allergy -ID on board- Dr Chandler #Chemical Cellulites Abdominal wall -GI on board -Vaseline applied to area #Diarrhea/ Abdominal distension -pt on Clindamycin -Will order C Diff studies -Hold constipation medication at this juncture -KU #Anemia -Hb/HCT, today 8.4/25/4. May be 2/2 hemoconcentration as patient not receiving any fluids as no I.V access. -FOBT negative -maintain normal transfusion thresholds #FEN -No fluids -Monitor Electrolytes -NPO #DVT/GI ppx -SCDs -Protonix BID #Dispo - tele Visit type - Emergency Visit Emergency Visit: Yes ED Registration Date: 08/28/18 Care time: The patient presented to the Emergency Department on the above date and was hospitalized for further evaluation of their emergent condition. - New Patient This patient is new to me today: No - Critical Care Critical Care patient: No - Discharge Referral Referred to [facility] Med P.C.: No
[2018-08-31] MEDS: TIAGABINE HCL 4 MG GT SCH ×3 (05:46→22:09)
[2018-08-31] MEDS: CLINDAMYCIN HCL 150 MG CAPSULE (FP) GT SCH (05:46)
[2018-08-31] MEDS: BACLOFEN 10 MG TABLET (FP) GT SCH ×3 (05:47→22:09)
[2018-08-31] MEDS: BISACODYL 10 MG SUPP.RECT RC SCH ×3 (05:47→22:09)
[2018-08-31] MEDS: CLOTRIMAZOLE 1% 10 ML TOPICAL SOLUTION TP SCH ×3 (06:01→23:07)
[2018-08-31] MEDS: ATENOLOL 25 MG TABLET (FP) GT SCH (06:01)
[2018-08-31 08:02] LABS: CALCIUM 8.9 mg/dL (8.5-10.1); CREATININE 0.3 mg/dL (0.55-1.3); MAGNESIUM 1.4 mg/dL (1.8-2.4); PHOSPHOROUS 3.4 mg/dL (2.5-4.9); POTASSIUM 4.1 mmol/L (3.5-5.1)
[2018-08-31 08:22] LABS: HEMATOCRIT 27.8 % (35.4-49); MCH 24.8 pg (25.7-33.7); MCHC 32.4 g/dl (32.0-35.9); MEAN CELL VOLUME 76.6 fl (80-96); MEAN PLT VOLUME 7.6 fl (7.5-11.1); PLATELET COUNT 350 K/MM3 (134-434); RBC 3.63 M/mm3 (4.00-5.60); RDW 16.3 % (11.9-15.9); WHITE BLOOD COUNT 5.5 K/mm3 (4.0-10.0)
[2018-08-31 08:43] LABS: BLOOD UREA NITROGEN 2.4 mg/dL (7-18)
[2018-08-31] MEDS: POTASSIUM CHLORIDE ORAL LIQUID 20 MEQ/15 ML GT SCH (09:43)
[2018-08-31] MEDS: LACTOBACILLUS ACIDOPHILUS 1 TABLET GT SCH ×2 (09:43→22:09)
[2018-08-31] MEDS: POLYETHYLENE GLYCOL 3350 119 GM BTL PO SCH (09:43)
[2018-08-31] MEDS: ZINC SULFATE 220 MG CAPSULE (FP) PO SCH ×2 (09:43→22:09)
[2018-08-31] MEDS ORDERED: PT OWN MED DRAWER 7, Y5N ONE ×3 (09:49→22:20)
[2018-08-31] MEDS: SIMETHICONE 40 MG/0.6 ML BOTTLE GT SCH ×4 (10:07→23:08)
[2018-08-31] MEDS: ZINC OXIDE 20% TOPICAL OINTMENT 30 GM TUBE TP SCH ×2 (10:07→22:12)
--- NOTE | 2018-08-31 12:27 | PN ---
Teaching Attending Note Name of Resident: Papi Zambrano ATTENDING PHYSICIAN STATEMENT I saw and evaluated the patient. I reviewed the resident's note and discussed the case with the resident. I agree with the resident's findings and plan as documented. SUBJECTIVE: Patient is comfortable with no acute distress. No nausea or vomiting. No fever or chill, no shortness of breath on oxygen 2 liter. OBJECTIVE: Vital Signs Temperature 98.2 F 08/31/18 06:00 Pulse Rate 93 H 08/31/18 06:00 Respiratory Rate 22 H 08/31/18 09:00 Blood Pressure 105/66 08/31/18 06:00 O2 Sat by Pulse Oximetry (%) 100 08/31/18 09:00 GENERAL: No acute distress. Contracted. HEAD: AT/NC, EYES: EOMI Sclera Clear. ENT: Protruding tongue. with MMM NECK: Trachea midline, full range of motion, supple. LUNGS: decreased BS at basis HEART: RRR S1S2, ABDOMEN:BS positive, soft, colostomy bag in place, erythema improving around the colostomy bag. EXTREMITIES: Contracted upper/lower extremities. NEUROLOGICAL: Cranial nerves II through XII grossly intact. contracted all the lower extremities. PSYCH: Normal mood, normal affect. SKIN: Warm, dry, normal turgor, decibutus ulcer stage 3 CBCD WBC 5.5 K/mm3 (4.0-10.0) 08/31/18 06:35 RBC 3.63 M/mm3 (4.00-5.60) L 08/31/18 06:35 Hgb 9.0 GM/dL (11.7-16.9) L 08/31/18 06:35 Hct 27.8 % (35.4-49) L 08/31/18 06:35 MCV 76.6 fl (80-96) L 08/31/18 06:35 MCHC 32.4 g/dl (32.0-35.9) 08/31/18 06:35 RDW 16.3 % (11.9-15.9) H 08/31/18 06:35 Plt Count 350 K/MM3 (134-434) 08/31/18 06:35 MPV 7.6 fl (7.5-11.1) 08/31/18 06:35 CMP Sodium 136 mmol/L (136-145) 08/31/18 06:30 Potassium 4.1 mmol/L (3.5-5.1) 08/31/18 06:30 Chloride 98 mmol/L (98-107) 08/31/18 06:30 Carbon Dioxide 28 mmol/L (21-32) 08/31/18 06:30 Anion Gap 10 MMOL/L (8-16) 08/31/18 06:30 BUN 2.4 mg/dL (7-18) L* 08/31/18 06:30 Creatinine 0.3 mg/dL (0.55-1.3) L 08/31/18 06:30 Random Glucose 98 mg/dL (74-106) 08/31/18 06:30 Calcium 8.9 mg/dL (8.5-10.1) 08/31/18 06:30 Total Bilirubin 0.7 mg/dL (0.2-1) 08/28/18 06:45 AST 10 U/L (15-37) L 08/28/18 06:45 ALT 12 U/L (13-61) L 08/28/18 06:45 Alkaline Phosphatase 69 U/L (45-117) 08/28/18 06:45 Total Protein 6.0 g/dl (6.4-8.2) L 08/28/18 06:45 Albumin 2.4 g/dl (3.4-5.0) L 08/28/18 06:45 CARDIAC ENZYMES Troponin I 0.11 ng/ml (0.00-0.05) H 08/28/18 10:15 Current Medications Generic Name Dose Route Start Last Admin Trade Name Freq PRN Reason Stop Dose Admin Albuterol Sulfate 1 amp 08/28/18 08:28 Ventolin 0.083% Nebulizer Soln - NEB Q4H PRN ASTHMA Atenolol 12.5 mg 08/29/18 07:00 08/31/18 06:01 Tenormin - GT 12.5 mg AM TOSIN Administration Baclofen 10 mg 08/28/18 14:00 08/31/18 05:47 Lioresal - GT 10 mg TID TOSIN Administration Bisacodyl 10 mg 08/28/18 14:00 08/31/18 05:47 Dulcolax Suppository - RC Not Given TID [facility] Clindamycin HCl 300 mg 08/29/18 19:00 08/31/18 05:46 Cleocin - GT 300 mg TID TOSIN Administration Clotrimazole 1 applic 08/28/18 14:00 08/31/18 06:01 Clotrimazole TP 1 applic TID TOSIN Administration Lactobacillus Acidophilus 1 tab 08/28/18 10:00 08/31/18 09:43 Bacid - GT 1 tab BID TOSIN Administration Levofloxacin 500 mg 08/31/18 10:00 08/31/18 10:06 Levaquin - PO 500 mg DAILY@0600 TOSIN Administration Multi-Ingredient Ointment 1 applic 08/28/18 10:00 08/31/18 10:07 Zinc Oxide TP 1 applic BID TOSIN Administration Non-Formulary Medication 4 mg 08/28/18 15:45 08/31/18 05:46 Tiagabine Hcl [Gabitril] GT 4 mg TID TOSIN Administration Polyethylene Glycol 17 gm 08/28/18 10:00 08/31/18 09:43 Miralax (For Daily Use) - PO 17 mg DAILY TOSIN Administration Potassium Chloride 10 meq 08/28/18 10:00 08/31/18 09:43 Potassium Chloride Oral Liquid GT 10 meq DAILY TOSIN Administration Scopolamine HBr 1 patch 08/29/18 08:00 08/29/18 10:58 Transderm-Scop - TD 1 patch Q72H TOSIN Administration Simethicone 40 mg 08/28/18 10:00 08/31/18 10:07 Mylicon Liquid - GT 40 mg QID TOSIN Administration Zinc Sulfate 220 mg 08/28/18 22:00 08/31/18 09:43 Orazinc - PO 220 mg BID TOSIN Administration Home Medications Medication Instructions Recorded Atenolol [Tenormin] 12.5 mg GT AM 03/03/17 Baclofen 10 mg GT TID 03/03/17 Bisacodyl 10 mg RC TID 03/03/17 Potassium Chloride Oral Soln [KCl 10 meq GT DAILY 03/03/17 Oral Solution] Tizanidine HCl 4 mg PO QID 03/03/17 Clindamycin Topical Solution 1 applic TP DAILY 10/16/17 [Cleocin 1% Topical Solution -] Clotrimazole 1 applic TP TID 10/16/17 Ferrous Sulfate 220 mg GT DAILY 10/16/17 Fluticasone Prop 0.05% Nasal 1 - 2 spray NS DAILY 10/16/17 [Flonase -] Multivit-Minerals/Ferrous Fum 30 ml GT DAILY 10/16/17 [Multivitamin Liquid] Zinc Gluconate [Zinc] 100 mg GT HS 10/16/17 Zinc Oxide 20% Topical Oint 1 applic TP BID 10/16/17 Albuterol 0.083% Nebulizer Lupe 1 neb NEB Q4H PRN 05/14/18 [Ventolin 0.083% Nebulizer Soln -] Calcium Carbonate/Vitamin D3 1 each PO TID 05/14/18 [Oystercal-D 500 mg-400 Unit Tb] Mag Hydrox/Aluminum Hyd/Simeth 355 ml GT Q8H 05/14/18 [Antacid Anti-Gas Liquid] Simethicone Liquid [Mylicon Liquid 40 mg GT QID 05/14/18 -] Tiagabine HCl [Gabitril] 4 mg GT TID 05/14/18 Lactobacillus Acidophilus [Bacid -] 1 tab GT BID tab 05/15/18 Polyethylene Glycol 3350 [Miralax 17 gm PO DAILY bottle 05/15/18 119 gm Btl -] ASSESSMENT AND PLAN: Pt is a 38 y/o M with mental retardation, congenital quadriplegia, cerebral palsy, seizures, hyperthyroidism, GERD, and pneumonia who presented from [facility] with rapid breathing and hypoxia to the 70s per report. Pt was evidently discharged today from [facility] after 2 weeks of treatment for PNA. He returned to [facility] and was found to be hypoxic and tachypnic. # Acute SOB due to possible HCAP on Levaquin orall now 250mg discussed with ID and Clindamycin oral will discontinue since no growth was reported ID on the case, on lactobacillus, on transderm patch q72h, neb treatments. 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 discharge patient back to [facility].
[2018-08-31] MEDS: ALBUTEROL SO4 0.083% IH SOL 2.5 MG/3 ML VIAL.NEB. NEB PRN (20:35)
[2018-08-31] MEDS ORDERED: ACETAMINOPHEN 650 MG/20.3 ML ORAL SOLUTION (CUPS) GT ONE (21:06)
--- NOTE | 2018-08-31 22:00 | PN ---
Physical Exam: SUBJECTIVE: Patient seen and examined at bedside. No acute events overnight. OBJECTIVE: Vital Signs Period Temp Pulse Resp BP Sys/Bruce Pulse Ox Last 24 Hr 97.5 F-99.7 F 93-117 16-24 105-134/66-82 95-100 GENERAL: Contracted. No acute distress HEAD: NC/AT EYES: EOMI Sclera Clear ENT: MMM LUNGS: Coarse breath sounds throughout HEART: RRR S1S2 ABDOMEN: Abdomen Distended, colostomy bag off, erythema around bag. EXTREMITIES: Contracted upper/lower extremities. SKIN: excoriation around j tube site. Laboratory Results - last 24 hr 08/31/18 08/31/18 06:30 06:35 WBC 5.5 RBC 3.63 L Hgb 9.0 L Hct 27.8 L MCV 76.6 L MCH 24.8 L MCHC 32.4 RDW 16.3 H Plt Count 350 MPV 7.6 Sodium 136 Potassium 4.1 Chloride 98 Carbon Dioxide 28 Anion Gap 10 BUN 2.4 L* Creatinine 0.3 L Est GFR (CKD-EPI)AfAm 195.17 Est GFR (CKD-EPI)NonAf 168.40 Random Glucose 98 Calcium 8.9 Phosphorus 3.4 Magnesium 1.4 L Active Medications Generic Name Dose Route Start Last Admin Trade Name Freq PRN Reason Stop Dose Admin Albuterol Sulfate 1 amp 08/28/18 08:28 Ventolin 0.083% Nebulizer Soln - NEB Q4H PRN ASTHMA Atenolol 12.5 mg 08/29/18 07:00 08/31/18 06:01 Tenormin - GT 12.5 mg AM TOSIN Administration Baclofen 10 mg 08/28/18 14:00 08/31/18 13:41 Lioresal - GT 10 mg TID TOSIN Administration Bisacodyl 10 mg 08/28/18 14:00 08/31/18 15:43 Dulcolax Suppository - RC 10 mg TID TOSIN Administration Clotrimazole 1 applic 08/28/18 14:00 08/31/18 13:42 Clotrimazole TP 1 applic TID TOSIN Administration Lactobacillus Acidophilus 1 tab 08/28/18 10:00 08/31/18 09:43 Bacid - GT 1 tab BID TOSIN Administration Levofloxacin 250 mg 08/31/18 12:45 08/31/18 13:40 Levaquin - PO Not Given DAILY@0600 TOSIN Multi-Ingredient Ointment 1 applic 08/28/18 10:00 08/31/18 10:07 Zinc Oxide TP 1 applic BID TOSIN Administration Non-Formulary Medication 4 mg 08/28/18 15:45 08/31/18 13:43 Tiagabine Hcl [Gabitril] GT 4 mg TID TOSIN Administration Polyethylene Glycol 17 gm 08/28/18 10:00 08/31/18 09:43 Miralax (For Daily Use) - PO 17 mg DAILY TOSIN Administration Potassium Chloride 10 meq 08/28/18 10:00 08/31/18 09:43 Potassium Chloride Oral Liquid GT 10 meq DAILY TOSIN Administration Scopolamine HBr 1 patch 08/29/18 08:00 08/29/18 10:58 Transderm-Scop - TD 1 patch Q72H TOSIN Administration Simethicone 40 mg 08/28/18 10:00 08/31/18 17:31 Mylicon Liquid - GT 40 mg QID TOSIN Administration Zinc Sulfate 220 mg 08/28/18 22:00 08/31/18 09:43 Orazinc - PO 220 mg BID TOSIN Administration ASSESSMENT/PLAN: The patient is a 38 yo M w/ PMH of CP with severe intellectual disability/non- verbal/quadriplegia, seizure disorder, hyperthyroidism, G-tube and J-tube placement, and SBO, who is presenting from [facility] due to dyspnea and respiratory distress. #SOB and hypoxia in the field likely 2/2 pna -s/p Vanc in ED -Empriic treatment w/ Levaquin. Blood and Urine cultures both negative. Clindamycin DC'ed -patient has zosyn allergy -ID on board- Dr Chandler #Chemical Cellulites Abdominal wall -GI on board -Vaseline applied to area #Diarrhea/ Abdominal distension -Hold constipation medication at this juncture #Anemia -Hb/HCT, today 9.0/27.8. -FOBT negative -Maintain normal transfusion thresholds #FEN -No fluids -Monitor Electrolytes -Tube feeds resumed #DVT/GI ppx -SCDs -Protonix BID #Dispo - Return to [facility] tomorrow
[2018-09-01 05:28] VITALS: BP 136/79; PULSE 102; TEMP 98.6
[2018-09-01] MEDS: BISACODYL 10 MG SUPP.RECT RC SCH (06:22)
[2018-09-01] MEDS: CLOTRIMAZOLE 1% 10 ML TOPICAL SOLUTION TP SCH (06:22)
[2018-09-01] MEDS: BACLOFEN 10 MG TABLET (FP) GT SCH (06:23)
[2018-09-01] MEDS: ATENOLOL 25 MG TABLET (FP) GT SCH (06:23)
[2018-09-01] MEDS: TIAGABINE HCL 4 MG GT SCH (06:23)
[2018-09-01] MEDS ORDERED: PT OWN MED DRAWER 7, Y5N ONE (06:26)
[2018-09-01 06:32] LABS: HEMATOCRIT 25.7 % (35.4-49); HEMOGLOBIN 8.7 GM/dL (11.7-16.9); MCH 25.1 pg (25.7-33.7); MCHC 33.8 g/dl (32.0-35.9); MEAN CELL VOLUME 74.4 fl (80-96); MEAN PLT VOLUME 6.9 fl (7.5-11.1); PLATELET COUNT 431 K/MM3 (134-434); RBC 3.46 M/mm3 (4.00-5.60); RDW 15.9 % (11.9-15.9); WHITE BLOOD COUNT 7.6 K/mm3 (4.0-10.0)
[2018-09-01 06:54] LABS: BLOOD UREA NITROGEN 4.4 mg/dL (7-18); CALCIUM 8.8 mg/dL (8.5-10.1); CREATININE 0.3 mg/dL (0.55-1.3); MAGNESIUM 1.5 mg/dL (1.8-2.4); PHOSPHOROUS 2.7 mg/dL (2.5-4.9); POTASSIUM 3.6 mmol/L (3.5-5.1)
[2018-09-01] MEDS: ALBUTEROL SO4 0.083% IH SOL 2.5 MG/3 ML VIAL.NEB. NEB PRN (07:51)
[2018-09-01] MEDS: SIMETHICONE 40 MG/0.6 ML BOTTLE GT SCH (09:47)
[2018-09-01] MEDS: LACTOBACILLUS ACIDOPHILUS 1 TABLET GT SCH (09:48)
[2018-09-01] MEDS: ZINC SULFATE 220 MG CAPSULE (FP) PO SCH (09:48)
[2018-09-01] MEDS: POLYETHYLENE GLYCOL 3350 119 GM BTL PO SCH (09:48)
[2018-09-01] MEDS: POTASSIUM CHLORIDE ORAL LIQUID 20 MEQ/15 ML GT SCH (09:49)
[2018-09-01] MEDS: ZINC OXIDE 20% TOPICAL OINTMENT 30 GM TUBE TP SCH (09:49)
[2018-09-01] MEDS: SCOPOLAMINE HYDROBROMIDE 1 PATCH PATCH.TD72 TD SCH (09:53)
--- NOTE | 2018-09-01 21:04 | DS ---
Physical Exam: SUBJECTIVE: Patient seen and examined at bedside. No acute events overnight. Saturating at 97% on room air. OBJECTIVE: Vital Signs Period Temp Pulse Resp BP Sys/Bruce Pulse Ox Last 24 Hr 98.6 F-99.0 F 102-114 18-20 121-136/58-79 100 PHYSICAL EXAM GENERAL: Contracted. NAD HEAD: NC/AT EYES: EOMI Sclera Clear ENT: MMM LUNGS: Coarse breath sounds throughout HEART: RRR S1S2 ABDOMEN: Abdomen Distended, colostomy bag off, erythema around bag. EXTREMITIES: Contracted upper/lower extremities. SKIN: excoriation around j tube site. LABS Laboratory Results - last 24 hr 09/01/18 09/01/18 05:45 05:45 WBC 7.6 RBC 3.46 L Hgb 8.7 L Hct 25.7 L MCV 74.4 L MCH 25.1 L MCHC 33.8 RDW 15.9 Plt Count 431 D MPV 6.9 L Sodium 137 Potassium 3.6 Chloride 101 Carbon Dioxide 31 Anion Gap 5 L BUN 4.4 L Creatinine 0.3 L Est GFR (CKD-EPI)AfAm 195.17 Est GFR (CKD-EPI)NonAf 168.40 Random Glucose 116 H Calcium 8.8 Phosphorus 2.7 Magnesium 1.5 L HOSPITAL COURSE: Date of Admission:08/28/18 Patient is a 38 yo M w/ PMH of CP with severe intellectual disability/non- verbal/quadriplegia, seizure disorder, hyperthyroidism, G-tube and J-tube placement, and SBO, who presented to [facility] due to dyspnea, cough, fever, and respiratory distress (desaturating to the 70's per staff). Pt was tachycardic in the 130's and tachypneic at 32 bpm. Pt received Vancomycin 1g while in ED. Pt was noted to have a mild elevation in his troponin at 0.21 ultimately trending down to 0.11; EKG revealed sinus tachycardia (HR 127, DE 128, QRS 62, QTc 424). Furthermore, pt was subsequently placed on empiric Levaquin and Clindamycin as CXR demonstrated possible infiltrate in the left lung field. Tube feeds were initially held but ultimately restarted. Pt was also placed on NC O2 however was taken off as pt was saturating on room air at 97%. Date of Discharge: 09/01/18 Minutes to complete discharge: 35 Discharge Summary Reason For Visit: ANEMIA, NON-ST ELEVATION MYOCARDIAL INFARCTION Condition: Improved - Instructions Diet, Activity, Other Instructions: You presented to the hospital due to respiratory distress. You were also found to have a possible pneumonia and thus received antibiotics. Please continue taking the following medication as prescribed below: Levaquin 250 mg daily for 7 Days we are sending you on oxygen for 2 liter continue home meds. Please retuen to the ED if you begin to experience shortness of breath, fever, or any other abnormal symptom. Referrals: Jett Chandler MD [Staff Physician] - Dae Gusman Jr [Non Staff, Medical] - Zheng Fong MD [Staff Physician] - 1 Week Disposition: CARE HOME FACILITY - Home Medications Comprehensive Discharge Medication List: Ambulatory Orders Atenolol [Tenormin] 12.5 mg GT AM 03/03/17 Baclofen 10 mg GT TID 03/03/17 Bisacodyl 10 mg RC TID 03/03/17 Potassium Chloride Oral Soln [KCl Oral Solution] 10 meq GT DAILY 03/03/17 Tizanidine HCl 4 mg PO QID 03/03/17 Clotrimazole 1 applic TP TID 10/16/17 Ferrous Sulfate 220 mg GT DAILY 10/16/17 Fluticasone Prop 0.05% Nasal [Flonase -] 1 - 2 spray NS DAILY 10/16/17 Multivit-Minerals/Ferrous Fum [Multivitamin Liquid] 30 ml GT DAILY 10/16/17 Zinc Gluconate [Zinc] 100 mg GT HS 10/16/17 Zinc Oxide 20% Topical Oint 1 applic TP BID 10/16/17 Albuterol 0.083% Nebulizer Lupe [Ventolin 0.083% Nebulizer Soln -] 1 neb NEB Q4H PRN 05/14/18 Calcium Carbonate/Vitamin D3 [Oystercal-D 500 mg-400 Unit Tb] 1 each PO TID Mag Hydrox/Aluminum Hyd/Simeth [Antacid Anti-Gas Liquid] 355 ml GT Q8H 05/14/18 Simethicone Liquid [Mylicon Liquid -] 40 mg GT QID 05/14/18 Tiagabine HCl [Gabitril] 4 mg GT TID 05/14/18 Lactobacillus Acidophilus [Bacid -] 1 tab GT BID tab 05/15/18 Polyethylene Glycol 3350 [Miralax 119 gm Btl -] 17 gm PO DAILY bottle 05/15/18 Scopolamine Hydrobromide [Transderm-Scop -] 1 patch TD Q72H patch.td72 Zinc Sulfate [Orazinc -] 220 mg PO BID capsule 08/31/18 levoFLOXacin [Levaquin -] 250 mg PO DAILY@0600 tablet 08/31/18 This patient is new to me today: No Emergency Visit: Yes ED Registration Date: 08/28/18 Care time: The patient presented to the Emergency Department on the above date and was hospitalized for further evaluation of their emergent condition. Critical Care patient: No - Discharge Referral Referred to [facility] Med P.C.: No
== END 2018-09-01 10:29 | disposition home or self-care (01) | DRG 137 ==
LOC: JER 15:03 → JERBED 08-28 04:44 → J4S 08-28 08:08
PROVIDERS: ADMIT Internal Medicine; ATTEND Internal Medicine
DX: J69.0 Pneumonitis due to inhalation of food and vomit (principal); G80.8 Other cerebral palsy; R00.0 Tachycardia, unspecified; R09.02 Hypoxemia; L89.153 Pressure ulcer of sacral region, stage 3; F73 Profound intellectual disabilities; G40.309 Generalized idiopathic epilepsy and epileptic syndromes, not intractable, without status epilepticus; K21.9 Gastro-esophageal reflux disease without esophagitis; D50.9 Iron deficiency anemia, unspecified
CPT/HCPCS: 36415; 71045-TC-FY; 71275-TC; 74018-TC-FY; 80048; 80053; 81003; 82272; 82803; 83605; 83735; 83880; 84100; 84439; 84443; 84484; 85025; 85027; 86850; 86900; 86901; 87040; 87086; 87804; 87807; 93005; 93010; 94640; 94761; 99285-25; J0131; J0475; J7030

== ENCOUNTER 2018-09-01 19:44 | Inpatient (IN) | payer OTHER ==
[2018-09-01 20:21] LABS: BASO % 1.1 % (0-2.0); EOS % 12.5 % (0-4.5); HEMATOCRIT 24.7 % (35.4-49); HEMOGLOBIN 8.2 GM/dL (11.7-16.9); LYMPH % 18.1 % (8-40); MCH 24.8 pg (25.7-33.7); MCHC 33.1 g/dl (32.0-35.9); MEAN CELL VOLUME 74.9 fl (80-96); MEAN PLT VOLUME 6.5 fl (7.5-11.1); MONO % 8.8 % (3.8-10.2); NEUT % 59.5 % (42.8-82.8); PLATELET COUNT 418 K/MM3 (134-434); RDW 16.1 % (11.9-15.9); WHITE BLOOD COUNT 7.9 K/mm3 (4.0-10.0)
[2018-09-01 20:36] LABS: INR 1.31 (0.83-1.09); PROTHROMBIN TIME (PATIENT) 15.5 SEC (9.7-13.0)
[2018-09-01 20:39] LABS: ACTIVATED PTT 39.6 SECONDS (25.2-36.5)
--- NOTE | 2018-09-01 21:22 | PDOC ---
History of Present Illness - General Stated Complaint: DIFFICULTY BREATHING Time Seen by Provider: 09/01/18 20:01 History Source: EMS, [facility] Living Records Exam Limitations: Clinical Condition, Physical Impairment - History of Present Illness Initial Comments: Pt is a 38 yo M, with PMH of CP with severe intellectual disability/non-verbal/ quadriplegia, seizure disorder, hyperthyroidism, G-tube and J-tube placement, and SBO, who is presenting from [place] due to dyspnea and respiratory distress. Pt was brought by EMS, who stated when they arrived at [place], the pt was saturating at low 80% on RA. They provided O2 and pt improved to 100%. Pt was recently admitted at [place] and [facility] for recurrent pneumonia. Pt is non-verbal and unable to provide history. Pt was discharged today from [facility] and was on Levaquin 250 mg PO Qday for pneumonia coverage. Pt has had multiple recent admissions for pneumonia. Pt was receiving abx until this AM. Allergies: Zosyn PCP: [facility] Social: No cigarette, alcohol, or drug use. No recent travel or sick contacts. Surgical: G-tube, J-tube Family: no relevant history. 09/01/18 21:18 Past History - Travel Traveled outside of the country in the last 30 days: No Close contact w/someone who was outside of country & ill: No - Past Medical History Allergies/Adverse Reactions: Allergies Allergy/AdvReac Type Severity Reaction Status Date / Time piperacillin [From Zosyn] Allergy Verified 08/27/18 15:38 tazobactam [From Zosyn] Allergy Verified 08/27/18 15:38 Home Medications: Ambulatory Orders Atenolol [Tenormin] 37.5 mg GT AM 03/03/17 Baclofen 10 mg GT TID 03/03/17 Bisacodyl 10 mg RC DAILY PRN 03/03/17 Potassium Chloride Oral Soln [KCl Oral Solution] 7.5 ml GT DAILY 03/03/17 Tizanidine HCl 4 mg PO QID 03/03/17 Clotrimazole 1 applic TP TID 10/16/17 Ferrous Sulfate 220 mg GT DAILY 10/16/17 Fluticasone Prop 0.05% Nasal [Flonase -] 1 - 2 spray NS DAILY 10/16/17 Multivit-Minerals/Ferrous Fum [Multivitamin Liquid] 30 ml GT DAILY 10/16/17 Zinc Gluconate [Zinc] 100 mg GT HS 10/16/17 Zinc Oxide 20% Topical Oint 1 applic TP BID 10/16/17 Albuterol 0.083% Nebulizer Lupe [Ventolin 0.083% Nebulizer Soln -] 1 neb NEB Q4H PRN 05/14/18 Calcium Carbonate/Vitamin D3 [Oystercal-D 500 mg-400 Unit Tb] 1 each PO TID Simethicone Liquid [Mylicon Liquid -] 40 mg GT QID 05/14/18 Tiagabine HCl [Gabitril] 4 mg GT TID 05/14/18 Lactobacillus Acidophilus [Bacid -] 1 tab GT BID tab 05/15/18 Polyethylene Glycol 3350 [Miralax 119 gm Btl -] 17 gm PO DAILY bottle 05/15/18 Scopolamine Hydrobromide [Transderm-Scop -] 1 patch TD Q72H patch.td72 Clindamycin Topical Solution [Cleocin 1% Topical Solution -] 1 applic TP HS 03/10 Nut.tx.impaired Digest/Fiber [Vital 1.5 Gerald Liquid] 1,000 ml GT DAILY 09/01/18 Protein Supplement [Promod] 30 ml GT BID 09/01/18 Scopolamine [Transderm-Scop] 1.5 mg TD Q3D 09/01/18 levoFLOXacin [Levaquin -] 250 mg PO DAILY 09/02/18 Anemia: Yes (dedra-thalassemia trait,) COPD: No DVT: No Dementia: Yes GI Disorders: Yes (GERD) Seizures: Yes (infantile cerebral palsy quadriplegia. profound mental retardartation,) Thyroid Disease: Yes (hyperthyroidism) - Surgical History Abdominal Surgery: Yes (feeding tube) - Immunization History Immunization Up to Date: Yes - Suicide/Smoking/Psychosocial Hx Smoking History: Never smoked Have you smoked in the past 12 months: No Hx Alcohol Use: No Drug/Substance Use Hx: No Substance Use Type: None Hx Substance Use Treatment: No Review of Systems - Review of Systems Able to Perform ROS?: No (non-verbal) Is the patient limited Portuguese proficient: Yes *Physical Exam - Physical Exam Comments: hypotensive 80s/50s, pt afebrile. Pt in NAD on arrival, O2 100% on face mask. Thin body habitus. Pt alert and looks at examiner. Withdraws from painful stimuli. human factors ergonomist generally intact, muscular strength and sensation intact. No midline spinal tenderness, step-offs, or crepitus. Head normocephalic, atraumatic. Eyes PERRLA, EOMI. Oropharynx without erythema or exudates, no LAD b/l. No nasal congestion, hearing intact. Clear heart sounds, S1/S2, no JVD, or heart murmur. +b/l non-pitting pedal edema. Clear lung sounds, no wheezes, crackles, or accessory muscle use. No abdominal or CVA tenderness to palpation, no rebound, no guarding. Abdomen soft, non-distended, and with normoactive bowel sounds. G-tube and J-tube in place. Significant perineal/diaper rash and erythema surrounding J-tube. 09/01/18 21:28 ED Treatment Course - LABORATORY CBC & Chemistry Diagram: 09/01/18 20:10 09/01/18 20:10 - ADDITIONAL ORDERS Additional order review: Laboratory Results 09/01/18 09/01/18 09/01/18 20:16 20:10 20:10 PT with INR INR PTT (Actin FS) Lactic Acid 1.1 Creatine Kinase 68 Troponin I < 0.02 B-Natriuretic Peptide 273.8 H 09/01/18 20:10 PT with INR 15.50 H INR 1.31 H PTT (Actin FS) 39.6 H Lactic Acid Creatine Kinase Troponin I B-Natriuretic Peptide 09/01/18 20:10 RBC 3.30 L MCV 74.9 L MCHC 33.1 RDW 16.1 H MPV 6.5 L Neutrophils % 59.5 D Lymphocytes % 18.1 D Monocytes % 8.8 Eosinophils % 12.5 H D Basophils % 1.1 Medical Decision Making - Medical Decision Making Pt was seen at bedside, also will be seen by attending Dr. Edgar. Pt presenting from [place] due to dyspnea and respiratory distress. Pt was brought by EMS, who stated when they arrived at [place], the pt was saturating at low 80% on RA. They provided O2 and pt improved to 100%. Pt was recently admitted at [place] and [facility] for recurrent pneumonia. Pt is non-verbal and unable to provide history. Considering mucous plugging/positioning vs hypoxia 2/2 to unresolved pneumonia. Recent CTA showed no acute PE. Ordered work-up including sepsis orders, chest x-ray, ECG. Provided 1 L IV NS and ofirmev for improvement of likely dehydration and discomfort. Will continue to reassess pt and monitor for symptomatic improvement. ECG: NSR, intervals WNL (HR 75, WA 138, QRS 74, QTc 424). TWIs in aVL, V1-V2. Pt was previously sinus tachycardia (08/28/2018). New J-point elevation in lateral and inferior leads. CBC and CMP WNL for pt. Pt has no cardiac history, negative troponin. 09/01/18 21:31 Pt was extremely difficult to establish access. Subclavian central line attempted with no success, as catheter would not advance over guidewire. IO line placed in R tibia by Dr. Agustin, pt receiving IVF and tylenol. BP improved to 108/79. Pt hypothermic, which is pts baseline per the aide (pt frequently is 96-98F) Pt O2 100% on 5L mask. Will continue to wean. Pt admitted to hospitalist service (Dr. Lui). 09/01/18 23:43 09/02/18 00:32 *DC/Admit/Observation/Transfer Diagnosis at time of Disposition: Hypoxia - Discharge Dispostion Condition at time of disposition: Stable Decision to Admit order: Yes - Referrals - Patient Instructions - Post Discharge Activity
[2018-09-01] MEDS ORDERED: ACETAMINOPHEN 1000 MG/100 ML VIAL (NON FORMULARY) IVPB ONE (21:26)
[2018-09-01] MEDS ORDERED: SODIUM CHLORIDE 1,000 ML IV STA (21:26)
[2018-09-01 21:53] VITALS: BMI 16.9
[2018-09-01 22:00] LABS: ALBUMIN 2.7 g/dl (3.4-5.0); ALK PHOS 66 U/L (45-117); ANION GAP 7 MMOL/L (8-16); BILIRUBIN,TOTAL 0.4 mg/dL (0.2-1); BLOOD UREA NITROGEN 6.9 mg/dL (7-18); CALCIUM 8.8 mg/dL (8.5-10.1); CHLORIDE 102 mmol/L (98-107); CO2 31 mmol/L (21-32); CREATININE 0.4 mg/dL (0.55-1.3); GLUCOSE,RANDOM 118 mg/dL (74-106); POTASSIUM 3.9 mmol/L (3.5-5.1); SGOT/AST 7 U/L (15-37); SGPT/ALT 12 U/L (13-61); SODIUM 139 mmol/L (136-145); TOT PROT 6.6 g/dl (6.4-8.2)
--- NOTE | 2018-09-01 22:12 | PDOC ---
Documentation entered by Francisca Skaggs SCRIBE, acting as scribe for Deneen Edgar DO. Deneen Edgar DO: This documentation has been prepared by the leanna, Francisca Skaggs SCRIBE, under my direction and personally reviewed by me in its entirety. I confirm that the documentation accurately reflects all work , treatment, procedures, and medical decision making performed by me. Attending Attestation - Resident Resident Name: Janet Cochran - ED Attending Attestation I have performed the following: I have examined & evaluated the patient, The case was reviewed & discussed with the resident, I agree w/resident's findings & plan - HPI HPI: 09/01/18 20:19 The patient is a 38 year old male with a past medical history significant for CP w/ severe intellectual disability/non-verbal/quadriplegia, seizure disorder, hyperthyroidism presents to the emergency department via EMS from [facility] in respiratory distress. Per EMS, at the facility the patient was noted to have shallow respiration and hypoxic to 80s on room air. The patient was placed on a nonrebreather mask, with O2 improvement. Allergies: tazobactam and piperacillin PCP: From [facility]. - Physicial Exam PE: 09/01/18 20:07 Agree with resident - Critical Care Time Total Critical Care Time: 90 Critical Care Statement: The care of this patient involved high complexity decision making to prevent further life threatening deterioration of the patient 's condition and/or to evaluate & treat vital organ system(s) failure or risk of failure. - Medical Decision Making 09/01/18 22:09 38-year-old male with an episode of respiratory distress with hypoxia witnessed by [facility] staff as well as EMS Patient improved with oxygen applied in route On arrival patient's oxygen saturation was 100% on nonrebreather He was in mild respiratory distress Chest x-ray shows no focal findings Repeat chest x-ray performed after multiple attempts at left subclavian access which shows no large pneumothorax Patient will be admitted to medical service for further observation
[2018-09-01] MEDS ORDERED: ACETAMINOPHEN INJECTION 100 ML IVPB ONE (22:35)
--- NOTE | 2018-09-01 23:40 | PN ---
Teaching Attending Note Name of Resident: Rivera Darby ATTENDING PHYSICIAN STATEMENT I saw and evaluated the patient. I reviewed the resident's note and discussed the case with the resident. I agree with the resident's findings and plan as documented. SUBJECTIVE: Seen and examined; please refer to resident note for further historical information. History limited given clinical condition obtained from ER staff and chart; pending call to [place]. He is a 38 y/o male resident of [facility] presenting for desaturation. He was discharged earlier today on 2L and was instructed to finish a course of levaquin. Microbiology reviewed; no recent growth but did grow 2x MDROs in sputum 2017. He is afebrile and hemodynamically stable in the ER; his temperature is low but I am unsure if they were taken rectally and he has low oral readings in the past. Pending repeat. He was seen by ID during his last stay. Please refer to today's DC summary for further historical information. He is now satting 100% on 5L O2. 10 sys ROS could not be reliably obtained due to clinical condition PMH, PSH, FH, SH reviewed Home Medications Medication Instructions Recorded Atenolol [Tenormin] 12.5 mg GT AM 03/03/17 Baclofen 10 mg GT TID 03/03/17 Bisacodyl 10 mg RC TID 03/03/17 Potassium Chloride Oral Soln [KCl 10 meq GT DAILY 03/03/17 Oral Solution] Tizanidine HCl 4 mg PO QID 03/03/17 Clotrimazole 1 applic TP TID 10/16/17 Ferrous Sulfate 220 mg GT DAILY 10/16/17 Fluticasone Prop 0.05% Nasal 1 - 2 spray NS DAILY 10/16/17 [Flonase -] Multivit-Minerals/Ferrous Fum 30 ml GT DAILY 10/16/17 [Multivitamin Liquid] Zinc Gluconate [Zinc] 100 mg GT HS 10/16/17 Zinc Oxide 20% Topical Oint 1 applic TP BID 10/16/17 Albuterol 0.083% Nebulizer Lupe 1 neb NEB Q4H PRN 05/14/18 [Ventolin 0.083% Nebulizer Soln -] Calcium Carbonate/Vitamin D3 1 each PO TID 05/14/18 [Oystercal-D 500 mg-400 Unit Tb] Mag Hydrox/Aluminum Hyd/Simeth 355 ml GT Q8H 05/14/18 [Antacid Anti-Gas Liquid] Simethicone Liquid [Mylicon Liquid 40 mg GT QID 05/14/18 -] Tiagabine HCl [Gabitril] 4 mg GT TID 05/14/18 Lactobacillus Acidophilus [Bacid -] 1 tab GT BID tab 05/15/18 Polyethylene Glycol 3350 [Miralax 17 gm PO DAILY bottle 05/15/18 119 gm Btl -] Scopolamine Hydrobromide 1 patch TD Q72H patch.td72 08/31/18 [Transderm-Scop -] Zinc Sulfate [Orazinc -] 220 mg PO BID capsule 08/31/18 levoFLOXacin [Levaquin -] 250 mg PO DAILY@0600 tablet 08/31/18 OBJECTIVE: VS, labs, imaging reviewed NAD, interactive and will track, no acute distress RRR s1/2 no mgr Poor inspiratory effort; scattered rales NT baseline distention +BS; tubes noted ASSESSMENT AND PLAN: Patient presents within 24 hours of discharge for repeated hypoxia 1) Hypoxia in the setting of recent HAP -No new infiltrates, etc. on CXR. Repeat in AM post hydration. Continue levaquin he was discharged on. -This is his 3rd hospitalization within weeks of eachother for the same issues -Hypoxia has resolved now; continue him on his baseline O2. Continue with chest PT. Aspiration precautions. No new fevers of WBC; monitor-consider broadening abx should he spike a temp. -Holding feeds; I suspect much of this is due to microaspiration. 2) Acute abdominal distention -GI recommended CDiff on last admission; I don't see it as done so will order. Appears unchanged from prior descriptions. -Disimpact if needed 3) Sacral decubitus ulcer, stage III -Turn and position, consult wound care Dr. Jin 4) Microcytic anemia -monitor; can check iron studies. 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 Full Code
--- NOTE | 2018-09-02 00:24 | HP ---
<Rivera Darby - Last Filed: 09/02/18 20:36> CHIEF COMPLAINT: Hypoxia PCP: Dr. Gusman HISTORY OF PRESENT ILLNESS: Pt. is a 38 y.o. M w/ PMHx. of Cerebral Palsy, Seizure disorder, Hyperthyroidism, anemia and recurrent aspiration pneumonia. As per chart review and discussion with county home demonstration agent. Pt. once he reached [place] desaturated to 70s and was sent back to the ED. Pt. is reportedly on 3L NC at baseline and required supplemental oxygen to 4L. Pt. was found to be hypothermic to 96.2 however as a questionable history of chronic subclinical? hypothermia. Pt. also noted to have soft blood pressure of 80s/50s which is lower than Pt.s already low baseline. In the ED, staff was unable to get IV access on multiple attempts including an attempt at a L. subclavian, there fore Right LE IJ was placed. Unable to obtain history given Pt.s mental state. Of note on last admission there was concern to PE however CTA(07/28/18) was negative. CTA did show LLL atelectasis, therefore Pt. was treated for pneumonia and discharged on 7 days Levaquin. ER course was notable for: (1)BCx./UCx., VBG, EKG, LA, (2)CXR, IVF NS (3)IV Tylenol Recent Travel: No PAST MEDICAL HISTORY: As above PAST SURGICAL HISTORY: Colostomy, G-tube, and J-tube Social History: Smoking: Denies Alcohol: Denies Drugs: Denies Family History: Unknown Allergies piperacillin [From Zosyn] Allergy (Verified 08/27/18 15:38) tazobactam [From Zosyn] Allergy (Verified 08/27/18 15:38) HOME MEDICATIONS: Home Medications Medication Instructions Recorded Atenolol [Tenormin] 37.5 mg GT AM 03/03/17 Baclofen 10 mg GT TID 03/03/17 Bisacodyl 10 mg RC DAILY PRN 03/03/17 Potassium Chloride Oral Soln [KCl 7.5 ml GT DAILY 03/03/17 Oral Solution] Tizanidine HCl 4 mg PO QID 03/03/17 Clotrimazole 1 applic TP TID 10/16/17 Ferrous Sulfate 220 mg GT DAILY 10/16/17 Fluticasone Prop 0.05% Nasal 1 - 2 spray NS DAILY 10/16/17 [Flonase -] Multivit-Minerals/Ferrous Fum 30 ml GT DAILY 10/16/17 [Multivitamin Liquid] Zinc Gluconate [Zinc] 100 mg GT HS 10/16/17 Zinc Oxide 20% Topical Oint 1 applic TP BID 10/16/17 Albuterol 0.083% Nebulizer Lupe 1 neb NEB Q4H PRN 05/14/18 [Ventolin 0.083% Nebulizer Soln -] Calcium Carbonate/Vitamin D3 1 each PO TID 05/14/18 [Oystercal-D 500 mg-400 Unit Tb] Simethicone Liquid [Mylicon Liquid 40 mg GT QID 05/14/18 -] Tiagabine HCl [Gabitril] 4 mg GT TID 05/14/18 Lactobacillus Acidophilus [Bacid -] 1 tab GT BID tab 05/15/18 Polyethylene Glycol 3350 [Miralax 17 gm PO DAILY bottle 05/15/18 119 gm Btl -] Scopolamine Hydrobromide 1 patch TD Q72H patch.td72 08/31/18 [Transderm-Scop -] Clindamycin Topical Solution 1 applic TP HS 09/01/18 [Cleocin 1% Topical Solution -] Nut.tx.impaired Digest/Fiber 1,000 ml GT DAILY 09/01/18 [Vital 1.5 Gerald Liquid] Protein Supplement [Promod] 30 ml GT BID 09/01/18 Scopolamine [Transderm-Scop] 1.5 mg TD Q3D 09/01/18 levoFLOXacin [Levaquin -] 250 mg PO DAILY 09/02/18 REVIEW OF SYSTEMS Unable to obtain PHYSICAL EXAMINATION Vital Signs - 24 hr 09/01/18 09/01/18 09/01/18 19:45 21:54 21:57 Temperature 96.2 F L 96.2 F L Pulse Rate 81 86 Pulse Rate [ 85 Right Brachial] Respiratory 15 14 Rate Blood Pressure 83/65 L Blood Pressure 108/79 [Right Arm] O2 Sat by Pulse 99 100 100 Oximetry (%) GENERAL: Awake, alert, in no acute distress. HEAD: Normal with no signs of trauma. EYES: Pupils equal, round and reactive to light, extraocular movements intact, sclera anicteric, conjunctiva clear. EARS, NOSE, THROAT: Ears normal, nares patent, oropharynx clear without exudates. Moist mucous membranes. NECK: Normal range of motion, supple without lymphadenopathy, JVD, no carotid bruit, or masses. LUNGS: Decreased breath sounds equal, clear to auscultation bilaterally. No wheezes, and no crackles. No accessory muscle use. HEART: Regular rate and rhythm, normal S1 and S2 without murmur ABDOMEN: Soft, nontender, not distended, normoactive bowel sounds, no guarding, no rebound, no masses. Colostomy/Gastrostomy bag present draining green fluid, G /J tube present. MUSCULOSKELETAL: Normal range of motion at all joints. No bony deformities or tenderness. No CVA tenderness. UPPER EXTREMITIES: 2+ radial pulses, warm, well-perfused. No cyanosis. No clubbing. No peripheral edema. LOWER EXTREMITIES: 2+ dorsal pedal pulses, warm, well-perfused. No calf tenderness. No peripheral edema. NEUROLOGICAL: Normal speech. Normal gait. PSYCHIATRIC: Cooperative. Good eye contact. Appropriate mood and affect. SKIN: Warm, dry, normal turgor, no rashes or lesions noted, normal capillary refill. Laboratory Results - last 24 hr 09/01/18 09/01/18 09/01/18 20:10 20:10 20:10 WBC 7.9 RBC 3.30 L Hgb 8.2 L Hct 24.7 L MCV 74.9 L MCH 24.8 L MCHC 33.1 RDW 16.1 H Plt Count 418 MPV 6.5 L Absolute Neuts (auto) 4.7 Neutrophils % 59.5 D Lymphocytes % 18.1 D Monocytes % 8.8 Eosinophils % 12.5 H D Basophils % 1.1 Nucleated RBC % 0 PT with INR 15.50 H INR 1.31 H PTT (Actin FS) 39.6 H Sodium Potassium Chloride Carbon Dioxide Anion Gap BUN Creatinine Est GFR (CKD-EPI)AfAm Est GFR (CKD-EPI)NonAf Random Glucose Lactic Acid Calcium Total Bilirubin AST ALT Alkaline Phosphatase Creatine Kinase Troponin I B-Natriuretic Peptide 273.8 H Total Protein Albumin 09/01/18 09/01/18 20:10 20:16 WBC RBC Hgb Hct MCV MCH MCHC RDW Plt Count MPV Absolute Neuts (auto) Neutrophils % Lymphocytes % Monocytes % Eosinophils % Basophils % Nucleated RBC % PT with INR INR PTT (Actin FS) Sodium 139 Potassium 3.9 Chloride 102 Carbon Dioxide 31 Anion Gap 7 L BUN 6.9 L Creatinine 0.4 L Est GFR (CKD-EPI)AfAm 173.41 Est GFR (CKD-EPI)NonAf 149.62 Random Glucose 118 H Lactic Acid 1.1 Calcium 8.8 Total Bilirubin 0.4 AST 7 L ALT 12 L Alkaline Phosphatase 66 Creatine Kinase 68 Troponin I < 0.02 B-Natriuretic Peptide Total Protein 6.6 Albumin 2.7 L ASSESSMENT/PLAN: Pt. is a 38 y.o. M w/ PMHx. of Cerebral Palsy, Seizure disorder, Hyperthyroidism , anemia and recurrent aspiration pneumonia. #Acute Hypoxic Respiratory Failure 2/2 Aspiration PNA vs. Hospital acquired PNA CXR @ 7:54pm showed no acute pathology CXR @ 9:20pm showed no acute pathology f/u AM CXR Give supplemental O2 to keep SpO2 above 90% c/w Levaquin started Chest Physiotherapy Hold tube feeds Aspiration precautions HOB 35 degrees #Distended abdomen GI recommended C.Diff Ag during last admission f/u CDiff Ag monitor bowel movements daily as Pt. has been on multiple antibiotics recently #Microcytic Anemia Hgb: 8.2 f/u Iron studies f/u reticulocyte count c/w Iron supplemntation ---> may need IV suplpemntation if access can be obtained #Decubitus Ulcers reported to be Stage III, did not see subcutaneous fat Also has numerous skin erosions around groin and around G/J tube site c/w Zinc ointments c/w protective gauze around leaky G/J tube #FEN c/w IVF monitor electrolytes and replete as needed hold Tube feeds #DVT Ppx. Hep SQ Visit type - Emergency Visit Emergency Visit: Yes ED Registration Date: 09/01/18 Care time: The patient presented to the Emergency Department on the above date and was hospitalized for further evaluation of their emergent condition. - New Patient This patient is new to me today: Yes Date on this admission: 09/01/18 - Critical Care Critical Care patient: No <Jorge Lui - Last Filed: 09/06/18 23:40> Seen and examined; agree with above except as supplemented by myself in my own documentation. Present for and verified all whittington parts of history of physical exam and independently reviewed all labs, test results, etc.
[2018-09-02] MEDS ORDERED: LACTATED RINGERS SOLUTION 1,000 ML IV SCH (00:30)
[2018-09-02] MEDS: HEPARIN NA (PORCINE) 5,000 UNITS/ML 1ML VIAL SQ SCH ×3 (02:23→17:31)
[2018-09-02 02:32] LABS: HYALINE CASTS 11 /lpf (0-8); PH,URINE 8.5 (5.0-8.0); URINE APPEARANCE CLEAR; URINE BACTERIA 0.7 /hpf (NEGATIVE); URINE BILIRUBIN NEGATIVE (NEGATIVE); URINE COLOR YELLOW; URINE GLUCOSE (UA) NEGATIVE (NEGATIVE); URINE KETONE NEGATIVE (NEGATIVE); URINE LEUK ESTERASE TRACE (NEGATIVE); URINE NITRITE NEGATIVE (NEGATIVE); URINE PROTEIN 1+ (NEGATIVE); URINE RBC 1 /hpf (0-4); URINE UROBILINOGEN 0.2 mg/dL (0.2-1.0); URINE WBC 2 /hpf (0-5)
[2018-09-02] MEDS ORDERED: BISACODYL 10 MG SUPP.RECT RC PRN (07:39)
[2018-09-02 09:07] LABS: BASO % 0.6 % (0-2.0); EOS % 16.8 % (0-4.5); HEMATOCRIT 26.5 % (35.4-49); HEMOGLOBIN 8.8 GM/dL (11.7-16.9); LYMPH % 19.9 % (8-40); MCH 24.8 pg (25.7-33.7); MCHC 33.1 g/dl (32.0-35.9); MEAN CELL VOLUME 75.1 fl (80-96); MEAN PLT VOLUME 7.8 fl (7.5-11.1); MONO % 6.4 % (3.8-10.2); NEUT % 56.3 % (42.8-82.8); RBC 3.53 M/mm3 (4.00-5.60); RDW 16.1 % (11.9-15.9)
[2018-09-02 09:20] LABS: BLOOD UREA NITROGEN 9.2 mg/dL (7-18); CREATININE 0.3 mg/dL (0.55-1.3); MAGNESIUM 1.9 mg/dL (1.8-2.4); PHOSPHOROUS 3.7 mg/dL (2.5-4.9)
[2018-09-02] MEDS ORDERED: ZINC OXIDE 20% TOPICAL OINTMENT 30 GM TUBE TP SCH (10:00)
[2018-09-02] MEDS: LACTOBACILLUS ACIDOPHILUS 1 TABLET GT SCH ×2 (10:02→23:29)
[2018-09-02] MEDS: FERROUS SO4 300 MG/5 ML ORAL SOLN UNIT DOSE CUPS GT SCH (10:02)
[2018-09-02] MEDS: SIMETHICONE 40 MG/0.6 ML BOTTLE GT SCH ×4 (10:05→23:29)
[2018-09-02] MEDS: TIZANIDINE HCL 4 MG TABLET GT SCH ×4 (10:06→23:32)
[2018-09-02] MEDS: SCOPOLAMINE HYDROBROMIDE 1 PATCH PATCH.TD72 TD SCH (10:42)
--- NOTE | 2018-09-02 11:47 | EKG ---
Test Reason : Blood Pressure : / mmHG Vent. Rate : 075 BPM Atrial Rate : 075 BPM P-R Int : 138 ms QRS Dur : 074 ms QT Int : 380 ms P-R-T Axes : 067 071 076 degrees QTc Int : 424 ms NORMAL SINUS RHYTHM POSSIBLE LEFT ATRIAL ENLARGEMENT ST ELEVATION, CONSIDER EARLY REPOLARIZATION, PERICARDITIS, OR INJURY ABNORMAL ECG WHEN COMPARED WITH ECG OF 28-AUG-2018 06:04, VENT. RATE HAS DECREASED BY [address] ELEVATION NOW PRESENT IN ANTERIOR LEADS Confirmed by SHWETHA URIBE MD ([id number]) on 09/02/2018 11:47:29 AM Referred By: Confirmed By:SHWETHA URIBE MD
[2018-09-02 12:40] LABS: PLATELET COUNT 287 K/MM3 (134-434)
--- NOTE | 2018-09-02 12:44 | PN ---
Physical Exam: SUBJECTIVE: Patient seen and examined at bedside. No acute events overnight. OBJECTIVE: Vital Signs Period Temp Pulse Resp BP Sys/Bruce Pulse Ox Last 24 Hr 96.2 F-97.9 F 81-98 14-24 83-127/65-82 99-100 GENERAL: NAD HEAD: Normal with no signs of trauma. EYES: EOMI Sclera Clear ENT: MMM NECK: Trachea midline, full range of motion, supple. LUNGS: Coarse breath sounds throughout HEART: RRR S1S2 ABDOMEN: Distended, Colostomy bag, BS+, tympanic to percussion. EXTREMITIES: No CCE. Laboratory Results - last 24 hr 09/01/18 09/01/18 09/01/18 20:10 20:10 20:10 WBC 7.9 RBC 3.30 L Hgb 8.2 L Hct 24.7 L MCV 74.9 L MCH 24.8 L MCHC 33.1 RDW 16.1 H Plt Count 418 MPV 6.5 L Absolute Neuts (auto) 4.7 Neutrophils % 59.5 D Lymphocytes % 18.1 D Monocytes % 8.8 Eosinophils % 12.5 H D Basophils % 1.1 Nucleated RBC % 0 Retic Count PT with INR 15.50 H INR 1.31 H PTT (Actin FS) 39.6 H Sodium Potassium Chloride Carbon Dioxide Anion Gap BUN Creatinine Est GFR (CKD-EPI)AfAm Est GFR (CKD-EPI)NonAf Random Glucose Lactic Acid Calcium Phosphorus Magnesium Ferritin Total Bilirubin AST ALT Alkaline Phosphatase Creatine Kinase Troponin I B-Natriuretic Peptide 273.8 H Total Protein Albumin Urine Color Urine Appearance Urine pH Ur Specific [place] Urine Protein Urine Glucose (UA) Urine Ketones Urine Blood Urine Nitrite Urine Bilirubin Urine Urobilinogen Ur Leukocyte Esterase Urine WBC (Auto) Urine RBC (Auto) Urine Casts (Auto) U Epithel Cells (Auto) Urine Bacteria (Auto) 09/01/18 09/01/18 09/02/18 20:10 20:16 01:02 WBC RBC Hgb Hct MCV MCH MCHC RDW Plt Count MPV Absolute Neuts (auto) Neutrophils % Lymphocytes % Monocytes % Eosinophils % Basophils % Nucleated RBC % Retic Count PT with INR INR PTT (Actin FS) Sodium 139 Potassium 3.9 Chloride 102 Carbon Dioxide 31 Anion Gap 7 L BUN 6.9 L Creatinine 0.4 L Est GFR (CKD-EPI)AfAm 173.41 Est GFR (CKD-EPI)NonAf 149.62 Random Glucose 118 H Lactic Acid 1.1 1.1 Calcium 8.8 Phosphorus Magnesium Ferritin Total Bilirubin 0.4 AST 7 L ALT 12 L Alkaline Phosphatase 66 Creatine Kinase 68 Troponin I < 0.02 B-Natriuretic Peptide Total Protein 6.6 Albumin 2.7 L Urine Color Urine Appearance Urine pH Ur Specific [place] Urine Protein Urine Glucose (UA) Urine Ketones Urine Blood Urine Nitrite Urine Bilirubin Urine Urobilinogen Ur Leukocyte Esterase Urine WBC (Auto) Urine RBC (Auto) Urine Casts (Auto) U Epithel Cells (Auto) Urine Bacteria (Auto) 09/02/18 09/02/18 09/02/18 02:20 08:25 08:25 WBC 8.0 RBC 3.53 L Hgb 8.8 L Hct 26.5 L MCV 75.1 L MCH 24.8 L MCHC 33.1 RDW 16.1 H Plt Count 287 D MPV 7.8 D Absolute Neuts (auto) 4.5 Neutrophils % 56.3 Lymphocytes % 19.9 Monocytes % 6.4 Eosinophils % 16.8 H Basophils % 0.6 Nucleated RBC % 0 Retic Count PT with INR INR PTT (Actin FS) Sodium 140 Potassium 4.0 Chloride 103 Carbon Dioxide 30 Anion Gap 7 L BUN 9.2 Creatinine 0.3 L Est GFR (CKD-EPI)AfAm 195.17 Est GFR (CKD-EPI)NonAf 168.40 Random Glucose 76 Lactic Acid Calcium 9.0 Phosphorus 3.7 Magnesium 1.9 Ferritin 201.8 Total Bilirubin AST ALT Alkaline Phosphatase Creatine Kinase Troponin I B-Natriuretic Peptide Total Protein Albumin Urine Color Yellow Urine Appearance Clear Urine pH 8.5 H D Ur Specific [place] 1.016 Urine Protein 1+ H Urine Glucose (UA) Negative Urine Ketones Negative Urine Blood Negative Urine Nitrite Negative Urine Bilirubin Negative Urine Urobilinogen 0.2 Ur Leukocyte Esterase Trace Urine WBC (Auto) 2 Urine RBC (Auto) 1 Urine Casts (Auto) 11 U Epithel Cells (Auto) 2.0 Urine Bacteria (Auto) 0.7 09/02/18 08:25 WBC RBC Hgb Hct MCV MCH MCHC RDW Plt Count MPV Absolute Neuts (auto) Neutrophils % Lymphocytes % Monocytes % Eosinophils % Basophils % Nucleated RBC % Retic Count 1.47 D PT with INR INR PTT (Actin FS) Sodium Potassium Chloride Carbon Dioxide Anion Gap BUN Creatinine Est GFR (CKD-EPI)AfAm Est GFR (CKD-EPI)NonAf Random Glucose Lactic Acid Calcium Phosphorus Magnesium Ferritin Total Bilirubin AST ALT Alkaline Phosphatase Creatine Kinase Troponin I B-Natriuretic Peptide Total Protein Albumin Urine Color Urine Appearance Urine pH Ur Specific [place] Urine Protein Urine Glucose (UA) Urine Ketones Urine Blood Urine Nitrite Urine Bilirubin Urine Urobilinogen Ur Leukocyte Esterase Urine WBC (Auto) Urine RBC (Auto) Urine Casts (Auto) U Epithel Cells (Auto) Urine Bacteria (Auto) Active Medications Generic Name Dose Route Start Last Admin Trade Name Freq PRN Reason Stop Dose Admin Albuterol Sulfate 1 amp 09/02/18 07:39 Ventolin 0.083% Nebulizer Soln - NEB Q4H PRN ASTHMA Atenolol 37.5 mg 09/03/18 07:00 Tenormin - GT AM TOSIN Baclofen 10 mg 09/02/18 14:00 Lioresal - GT TID TOSIN Bisacodyl 10 mg 09/02/18 07:39 Dulcolax Suppository - RC DAILY PRN CONSTIPATION Calcium Carbonate/Cholecalciferol 1 tab 09/02/18 14:00 Os-Gerald 500+D - PO TID TOSIN Clotrimazole 1 applic 09/02/18 14:00 Lotrimin 1% Cream - TP TID TOSIN Ferrous Sulfate 220 mg 09/02/18 10:00 09/02/18 10:02 Feosol GT 220 mg DAILY TOSIN Administration Heparin Sodium (Porcine) 5,000 unit 09/02/18 02:00 09/02/18 10:02 Heparin - SQ 5,000 unit Q8H-IV TOSIN Administration Lactated Ringer's 1,000 mls @ 60 mls/hr 09/02/18 00:30 09/02/18 02:23 Lactated Ringers Solution IV 60 mls/hr ASDIR TOSIN Administration Levofloxacin 250 mg in 50 mls @ 50 mls/hr 09/02/18 10:00 09/02/18 10:03 Levaquin 250 Mg Premixed Ivpb - IVPB 50 mls/hr DAILY TOSIN Administration Protocol Lactobacillus Acidophilus 1 tab 09/02/18 10:00 09/02/18 10:02 Bacid - GT 1 tab BID TOSIN Administration Multi-Ingredient Ointment 1 applic 09/02/18 10:00 09/02/18 10:06 Zinc Oxide TP 1 applic BID TOSIN Administration Non-Formulary Medication 4 mg 09/02/18 14:00 Tiagabine Hcl [Gabitril] GT TID TOSIN Non-Formulary Medication 100 mg 09/02/18 22:00 Zinc Gluconate [Zinc] GT HS TOSIN Scopolamine HBr 1 patch 09/02/18 10:00 09/02/18 10:42 Transderm-Scop - TD 1 patch Q3D@1000 TOSIN Administration Simethicone 40 mg 09/02/18 10:00 09/02/18 10:05 Mylicon Liquid - GT 40 mg QID TOSIN Administration Tizanidine HCl 4 mg 09/02/18 10:00 09/02/18 10:06 Tizanidine Hcl GT 4 mg QID TOSIN Administration ASSESSMENT/PLAN: Patient is a 38 yo M w/ PMH of CP with severe intellectual disability/non-verbal /quadriplegia, seizure disorder, hyperthyroidism, G-tube and J-tube placement, and SBO, who presented to [facility] from [facility] due to dyspnea, cough, fever, and respiratory distress (desaturating to the 70's per staff). # Recent Pneumonia 2/2 possibly 2/2 Aspiration -Pt continuing Levofloxacin 250 mg Daily. 6 more days of treatment -HOB elevation to prevent aspiration # Diarrhea - Holding Constipation medications at this juncture # Seizure d/o -Continue Gabitril, medication non-formulary. Medication received from [facility] this afternoon. DVT ppx: SCDs FEN: LR@60 ml/he Monitor Electrolytes Resume TF Dispo: Med-Surg Visit type - Emergency Visit Emergency Visit: Yes ED Registration Date: 09/01/18 Care time: The patient presented to the Emergency Department on the above date and was hospitalized for further evaluation of their emergent condition. - New Patient This patient is new to me today: Yes Date on this admission: 09/02/18 - Critical Care Critical Care patient: No - Discharge Referral Referred to [facility] Med P.C.: No
[2018-09-02] MEDS: CALCIUM 500MG/VIT-D 200 UNITS COMBO TABLET (FP) PO SCH ×2 (13:00→23:29)
[2018-09-02] MEDS: BACLOFEN 10 MG TABLET (FP) GT SCH ×2 (13:01→23:29)
[2018-09-02] MEDS: CLOTRIMAZOLE 1% CREAM 15 GM TUBE TP SCH ×2 (13:02→23:33)
--- NOTE | 2018-09-02 13:55 | PN ---
Teaching Attending Note Name of Resident: Deangelo Griffin ATTENDING PHYSICIAN STATEMENT I saw and evaluated the patient. I reviewed the resident's note and discussed the case with the resident. I agree with the resident's findings and plan as documented. SUBJECTIVE: No events this am . unable to obtain any hx OBJECTIVE: NAD, Awake , comfortable , calm , smiles CV: RRR Lungs: poor effort ,clear b/l Ext: No edema ABd: distended, soft, deformed , PEG in with slight discharge on gauze. tympanic . + BS. draining bag in epigastric area with surrounding erythema Skin; stage 3 clean decub ulcer on sacral area. ASSESSMENT AND PLAN: Unfortunate 37 y/o man with h/o MR, congenital quadriplegia , cerebral palsy, seizure disorder, Hip dislocation, GERD, thyroid disease , scoliosis, high out put entero-cutaneous fistula, feeding tube insertion and other medical problems who was treated for PNA/hypoxia and was dc on 09/01 to return on same day as [facility] declined him. 1- Recent PNA: possible aspiration . Cxray reviewed. - cont levaquin as per previous plan. 6 more days to go - aspiration precautions - O2 supplementation 2- Diarrhea. c idff neg. could be due to TF. Abd is at base line distention - hold stool softeners 3- h/o Seizures: cont home meds 4- Nutrition : resume TF ( perative at 50 cc/hr with 25 cc/hr water flushes) dc IVF . 5- sacral decub ulcer. hansen snot look infected. frequent turning dispo: per communication with Dr. Gusman yesterday, the mom is the HCP and wants patient full code. [place]'s staff consider patient is in constant deterioration and decline him back. Will contact mom and request the legal paperwork. will address code status and goals of care. Will contact Social work to arrange/find another facility of group home for patient.
[2018-09-02] MEDS ORDERED: TIAGABINE HCL 4 MG GT SCH (14:00)
--- NOTE | 2018-09-02 21:39 | PN ---
Progress Note (short form) - Note Progress Note: Paged for Mother(Felicitas) [phone] wanting to make son DNR/DNI, unclear if Pt. who came from [place] but is reportedly being denied from returning? 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 can be made DNR/DNI. Suggest ethics discussion with [facility]/SW and following up if AM. <Rivera Darby - Last Filed: 09/02/18 21:32> - Note Progress Note: Seen and examined; agree with above except as supplemented by myself in my own documentation. Present for and verified all whittington parts of history of physical exam and independently reviewed all labs, test results, etc. <Jorge Lui - Last Filed: 09/06/18 23:41>
[2018-09-02] MEDS ORDERED: ZINC GLUCONATE 100 MG GT SCH (22:00)
[2018-09-02] MEDS ORDERED: PT OWN MED DRAWER 7, Y5N ONE (23:26)
[2018-09-02] MEDS: TIAGABINE GT SCH (23:31)
[2018-09-02] MEDS: ZINC OXIDE 20% TOPICAL OINTMENT 30 GM TUBE TP SCH (23:33)
[2018-09-03] MEDS: HEPARIN NA (PORCINE) 5,000 UNITS/ML 1ML VIAL SQ SCH ×3 (02:00→18:19)
[2018-09-03 04:20] LABS: SERUM IRON SATURATION 5 % (15-55); TOTAL IRON BINDING CAPACITY 270 ug/dL (250-450); UIBC 256 ug/dL (111-343)
[2018-09-03] MEDS: CALCIUM 500MG/VIT-D 200 UNITS COMBO TABLET (FP) PO SCH ×3 (05:49→22:41)
[2018-09-03] MEDS: BACLOFEN 10 MG TABLET (FP) GT SCH ×3 (05:50→22:41)
[2018-09-03] MEDS: TIAGABINE GT SCH ×3 (05:51→22:42)
[2018-09-03] MEDS: CLOTRIMAZOLE 1% CREAM 15 GM TUBE TP SCH ×3 (05:54→22:39)
[2018-09-03] MEDS: ATENOLOL 25 MG TABLET (FP) GT SCH (06:09)
--- NOTE | 2018-09-03 07:16 | PN ---
Physical Exam: SUBJECTIVE: Patient seen and examined at bedside. No acute events overnight. I.O line removed from left leg. OBJECTIVE: Vital Signs Period Temp Pulse Resp BP Sys/Bruce Pulse Ox Last 24 Hr 97.1 F-98.6 F 85-105 20-22 93-151/55-81 99-99 GENERAL: Mild distress, abdominal breathing HEAD: Normal with no signs of trauma. EYES: EOMI Sclera Clear ENT: MMM LUNGS: Scattered Rhonchi HEART: RRR S1S2 ABDOMEN: Distended, Urostomy bag in place, J Tube. Erythema around urostomy site. EXTREMITIES: No CCCe Laboratory Results - last 24 hr 09/02/18 09/02/18 09/02/18 08:25 08:25 08:25 WBC 8.0 RBC 3.53 L Hgb 8.8 L Hct 26.5 L MCV 75.1 L MCH 24.8 L MCHC 33.1 RDW 16.1 H Plt Count 287 D MPV 7.8 D Absolute Neuts (auto) 4.5 Neutrophils % 56.3 Lymphocytes % 19.9 Monocytes % 6.4 Eosinophils % 16.8 H Basophils % 0.6 Nucleated RBC % 0 Retic Count 1.47 D Sodium 140 Potassium 4.0 Chloride 103 Carbon Dioxide 30 Anion Gap 7 L BUN 9.2 Creatinine 0.3 L Est GFR (CKD-EPI)AfAm 195.17 Est GFR (CKD-EPI)NonAf 168.40 Random Glucose 76 Calcium 9.0 Phosphorus 3.7 Magnesium 1.9 Iron TIBC Iron Saturation Ferritin 201.8 09/02/18 08:25 WBC RBC Hgb Hct MCV MCH MCHC RDW Plt Count MPV Absolute Neuts (auto) Neutrophils % Lymphocytes % Monocytes % Eosinophils % Basophils % Nucleated RBC % Retic Count Sodium Potassium Chloride Carbon Dioxide Anion Gap BUN Creatinine Est GFR (CKD-EPI)AfAm Est GFR (CKD-EPI)NonAf Random Glucose Calcium Phosphorus Magnesium Iron 14 L TIBC 270 Iron Saturation 5 L Ferritin Active Medications Generic Name Dose Route Start Last Admin Trade Name Freq PRN Reason Stop Dose Admin Albuterol Sulfate 1 amp 09/02/18 07:39 Ventolin 0.083% Nebulizer Soln - NEB Q4H PRN ASTHMA Atenolol 37.5 mg 09/03/18 07:00 09/03/18 06:09 Tenormin - GT 37.5 mg AM TOSIN Administration Baclofen 10 mg 09/02/18 14:00 09/03/18 05:50 Lioresal - GT 10 mg TID TOSIN Administration Bisacodyl 10 mg 09/02/18 07:39 Dulcolax Suppository - RC DAILY PRN CONSTIPATION Calcium Carbonate/Cholecalciferol 1 tab 09/02/18 14:00 09/03/18 05:49 Os-Gerald 500+D - PO 1 tab TID TOSIN Administration Clotrimazole 1 applic 09/02/18 14:00 09/03/18 05:54 Lotrimin 1% Cream - TP 1 applic TID TOSIN Administration Ferrous Sulfate 220 mg 09/02/18 10:00 09/02/18 10:02 Feosol GT 220 mg DAILY TOSIN Administration Heparin Sodium (Porcine) 5,000 unit 09/02/18 02:00 09/03/18 02:00 Heparin - SQ 5,000 unit Q8H-IV TOSIN Administration Levofloxacin 250 mg in 50 mls @ 50 mls/hr 09/02/18 10:00 09/02/18 10:03 Levaquin 250 Mg Premixed Ivpb - IVPB 50 mls/hr DAILY TOSIN Administration Protocol Lactobacillus Acidophilus 1 tab 09/02/18 10:00 09/02/18 23:29 Bacid - GT 1 tab BID TOSIN Administration Multi-Ingredient Ointment 1 applic 09/02/18 14:02 09/02/18 23:33 Zinc Oxide TP 1 applic BID TOSIN Administration Patient's Own 1 each 09/02/18 22:00 09/03/18 05:51 Medication (Non- GT 1 each Formulary) Tiagabine TID TOSIN Administration (Gabitril 4mg) Non-Formulary Medication 1 each 09/02/18 22:00 Patient's Own Med GT HS TOSIN Scopolamine HBr 1 patch 09/02/18 10:00 09/02/18 10:42 Transderm-Scop - TD 1 patch Q3D@1000 TOSIN Administration Simethicone 40 mg 09/02/18 10:00 09/02/18 23:29 Mylicon Liquid - GT 40 mg QID TOSIN Administration Tizanidine HCl 4 mg 09/02/18 10:00 09/02/18 23:32 Tizanidine Hcl GT 4 mg QID TOSIN Administration ASSESSMENT/PLAN: Patient is a 38 yo M w/ PMH of CP with severe intellectual disability/non-verbal /quadriplegia, seizure disorder, hyperthyroidism, G-tube and J-tube placement, and SBO, who presented to [facility] from [facility] due to dyspnea, cough, fever, and respiratory distress (desaturating to the 70's per staff). # Recent Pneumonia 2/2 possibly 2/2 Aspiration - Levofloxacin 250 mg Daily Switched to PO. 5 more days of treatment -HOB elevation to prevent aspiration # Sacral Decubitus Ulcer -Wound Care consult # Diarrhea - Holding Constipation medications at this juncture # Seizure d/o -Continue Gabitril, medication non-formulary. Medication received from [facility]. DVT ppx: SCDs FEN: No Fluids Monitor Electrolytes TF Vital 1.2 Dietary on board Dispo: Med-Surg Visit type - Emergency Visit Emergency Visit: Yes ED Registration Date: 09/01/18 Care time: The patient presented to the Emergency Department on the above date and was hospitalized for further evaluation of their emergent condition. - New Patient This patient is new to me today: No - Critical Care Critical Care patient: No - Discharge Referral Referred to [facility] Med P.C.: No
[2018-09-03 08:49] LABS: HEMATOCRIT 24.5 % (35.4-49); HEMOGLOBIN 8.1 GM/dL (11.7-16.9); MCH 24.3 pg (25.7-33.7); MCHC 33.1 g/dl (32.0-35.9); MEAN CELL VOLUME 73.5 fl (80-96); MEAN PLT VOLUME 6.9 fl (7.5-11.1); PLATELET COUNT 419 K/MM3 (134-434); RBC 3.33 M/mm3 (4.00-5.60); WHITE BLOOD COUNT 8.9 K/mm3 (4.0-10.0)
[2018-09-03 09:03] LABS: BLOOD UREA NITROGEN 7.3 mg/dL (7-18); CREATININE 0.3 mg/dL (0.55-1.3); MAGNESIUM 1.9 mg/dL (1.8-2.4); PHOSPHOROUS 3.3 mg/dL (2.5-4.9); POTASSIUM 3.8 mmol/L (3.5-5.1)
[2018-09-03] MEDS: LACTOBACILLUS ACIDOPHILUS 1 TABLET GT SCH ×2 (09:29→22:41)
[2018-09-03] MEDS: FERROUS SO4 300 MG/5 ML ORAL SOLN UNIT DOSE CUPS GT SCH (09:29)
[2018-09-03] MEDS: TIZANIDINE HCL 4 MG TABLET GT SCH ×4 (09:36→22:42)
[2018-09-03] MEDS: ZINC OXIDE 20% TOPICAL OINTMENT 30 GM TUBE TP SCH ×2 (09:37→22:39)
[2018-09-03] MEDS: SIMETHICONE 40 MG/0.6 ML BOTTLE GT SCH ×4 (12:50→22:40)
--- NOTE | 2018-09-03 17:30 | PN ---
Teaching Attending Note Name of Resident: Deangelo Griffin ATTENDING PHYSICIAN STATEMENT I saw and evaluated the patient. I reviewed the resident's note and discussed the case with the resident. I agree with the resident's findings and plan as documented. SUBJECTIVE: No events over night OBJECTIVE: NAD, Awake, comfortable, calm CV: RRR Lungs: poor effort ,clear b/l anteriorly Ext: No edema ABd: distended, soft, deformed , PEG in with slight discharge on gauze. tympanic. + BS. draining bag in epigastric area with surrounding erythema Skin; sacral decub was not examined today ASSESSMENT AND PLAN: Unfortunate 37 y/o man with h/o MR, congenital quadriplegia , cerebral palsy, seizure disorder, Hip dislocation, GERD, thyroid disease , scoliosis, high out put Entero-cutaneous fistula, feeding tube insertion and other medical problems who was treated for PNA/hypoxia and was dc on 09/01 to return on same day as [facility] declined him. 1- Recent PNA: possible aspiration - cont levaquin in po form. 5 days left - aspiration precautions - O2 supplementation 2- Diarrhea.resolved 3- h/o Seizures: cont home meds 4- Nutrition :change TF to Jevity 5- Sacral decub ulcer.frequent turning Dispo: Mom could not be reached today . SW involved for placement medically ready whenever a facility accepts him. remove IO line . risk for infection .
[2018-09-03] MEDS: ALBUTEROL SO4 0.083% IH SOL 2.5 MG/3 ML VIAL.NEB. NEB PRN (20:45)
[2018-09-04] MEDS: HEPARIN NA (PORCINE) 5,000 UNITS/ML 1ML VIAL SQ SCH ×3 (01:16→18:19)
[2018-09-04] MEDS: CALCIUM 500MG/VIT-D 200 UNITS COMBO TABLET (FP) PO SCH ×3 (06:39→22:26)
[2018-09-04] MEDS: BACLOFEN 10 MG TABLET (FP) GT SCH ×3 (06:39→22:27)
[2018-09-04] MEDS: TIAGABINE GT SCH ×3 (06:41→22:25)
[2018-09-04] MEDS: CLOTRIMAZOLE 1% CREAM 15 GM TUBE TP SCH ×3 (06:41→22:23)
[2018-09-04] MEDS: ATENOLOL 25 MG TABLET (FP) GT SCH (06:41)
--- NOTE | 2018-09-04 09:01 | PN ---
Physical Exam: SUBJECTIVE: Patient seen and examined at bedside, No overnight events. OBJECTIVE: Vital Signs Period Temp Pulse Resp BP Sys/Bruce Pulse Ox Last 24 Hr 97.3 F-98.1 F 80-87 20-20 103-142/60-86 100 GENERAL: Awake, non-interactive HEAD: Normal with no signs of trauma. EYES: EOMI Sclera Clear ENT: MMM LUNGS: Scattered Rhonchi HEART: RRR S1S2 ABDOMEN: Distended, Urostomy bag in place, J Tube. Erythema around urostomy site. EXTREMITIES: No CCCe Laboratory Results - last 24 hr 09/03/18 09/03/18 08:20 08:20 WBC 8.9 RBC 3.33 L Hgb 8.1 L Hct 24.5 L MCV 73.5 L MCH 24.3 L MCHC 33.1 RDW 16.0 H Plt Count 419 D MPV 6.9 L D Sodium 138 Potassium 3.8 Chloride 102 Carbon Dioxide 33 H Anion Gap 3 L BUN 7.3 Creatinine 0.3 L Est GFR (CKD-EPI)AfAm 195.17 Est GFR (CKD-EPI)NonAf 168.40 Random Glucose 127 H Calcium 9.0 Phosphorus 3.3 Magnesium 1.9 Active Medications Generic Name Dose Route Start Last Admin Trade Name Freq PRN Reason Stop Dose Admin Albuterol Sulfate 1 amp 09/02/18 07:39 09/03/18 20:45 Ventolin 0.083% Nebulizer Soln - NEB 1 amp Q4H PRN Administration ASTHMA Atenolol 37.5 mg 09/03/18 07:00 09/04/18 06:41 Tenormin - GT 37.5 mg AM TOSIN Administration Baclofen 10 mg 09/02/18 14:00 09/04/18 06:39 Lioresal - GT 10 mg TID TOSIN Administration Bisacodyl 10 mg 09/02/18 07:39 Dulcolax Suppository - RC DAILY PRN CONSTIPATION Calcium Carbonate/Cholecalciferol 1 tab 09/02/18 14:00 09/04/18 06:39 Os-Gerald 500+D - PO 1 tab TID TOSIN Administration Clotrimazole 1 applic 09/02/18 14:00 09/04/18 06:41 Lotrimin 1% Cream - TP 1 applic TID TOSIN Administration Ferrous Sulfate 220 mg 09/02/18 10:00 06/14/19 09:29 Feosol GT 220 mg DAILY TOSIN Administration Heparin Sodium (Porcine) 5,000 unit 09/02/18 02:00 09/04/18 01:16 Heparin - SQ 5,000 unit Q8H-IV TOSIN Administration Lactobacillus Acidophilus 1 tab 09/02/18 10:00 09/03/18 22:41 Bacid - GT 1 tab BID TOSIN Administration Levofloxacin 250 mg 09/03/18 12:15 09/04/18 06:39 Levaquin - PO 250 mg DAILY@0600 TOSIN Administration Multi-Ingredient Ointment 1 applic 09/02/18 14:02 09/03/18 22:39 Zinc Oxide TP 1 applic BID TOSIN Administration Patient's Own 1 each 09/02/18 22:00 09/04/18 06:41 Medication (Non- GT 1 each Formulary) Tiagabine TID TOSIN Administration (Gabitril 4mg) Non-Formulary Medication 1 each 09/02/18 22:00 Patient's Own Med GT HS TOSIN Scopolamine HBr 1 patch 09/02/18 10:00 09/02/18 10:42 Transderm-Scop - TD 1 patch Q3D@1000 TOSIN Administration Simethicone 40 mg 09/02/18 10:00 09/03/18 22:40 Mylicon Liquid - GT 40 mg QID TOSIN Administration Tizanidine HCl 4 mg 09/02/18 10:00 09/03/18 22:42 Tizanidine Hcl GT 4 mg QID TOSIN Administration ASSESSMENT/PLAN: Patient is a 38 yo M w/ PMH of CP with severe intellectual disability/non-verbal /quadriplegia, seizure disorder, hyperthyroidism, G-tube and J-tube placement, and SBO, who presented to [facility] from [facility] due to dyspnea, cough, fever, and respiratory distress (desaturating to the 70's per staff). # Recent Pneumonia 2/2 possibly 2/2 Aspiration - Levofloxacin 250 mg Daily Switched to PO. 4 more days of treatment -HOB elevation to prevent aspiration # Sacral Decubitus Ulcer -Wound Care consult # Diarrhea - Holding Constipation medications at this juncture # Seizure d/o -Continue Gabitril, medication non-formulary. Medication received from [facility]. DVT ppx: SCDs FEN: No Fluids Monitor Electrolytes TF Vital 1.2 Dietary on board Dispo: Med-Surg Visit type - Emergency Visit Emergency Visit: No - New Patient This patient is new to me today: Yes Date on this admission: 09/04/18 - Critical Care Critical Care patient: No
[2018-09-04 09:53] LABS: HEMATOCRIT 26.2 % (35.4-49); HEMOGLOBIN 8.6 GM/dL (11.7-16.9); MCH 24.4 pg (25.7-33.7); MEAN PLT VOLUME 7.2 fl (7.5-11.1); RBC 3.54 M/mm3 (4.00-5.60); WHITE BLOOD COUNT 8.5 K/mm3 (4.0-10.0)
[2018-09-04 09:58] LABS: PLATELET COUNT 428 K/MM3 (134-434)
[2018-09-04 10:09] LABS: BLOOD UREA NITROGEN 8.7 mg/dL (7-18); CALCIUM 8.9 mg/dL (8.5-10.1); CREATININE 0.3 mg/dL (0.55-1.3); MAGNESIUM 1.9 mg/dL (1.8-2.4); POTASSIUM 4.7 mmol/L (3.5-5.1)
[2018-09-04] MEDS: LACTOBACILLUS ACIDOPHILUS 1 TABLET GT SCH ×2 (11:43→22:27)
[2018-09-04] MEDS: FERROUS SO4 300 MG/5 ML ORAL SOLN UNIT DOSE CUPS GT SCH (11:43)
[2018-09-04] MEDS ORDERED: PT OWN MED DRAWER 7, Y5N ONE ×3 (11:46→21:48)
[2018-09-04] MEDS: TIZANIDINE HCL 4 MG TABLET GT SCH ×4 (11:47→22:26)
[2018-09-04] MEDS: SIMETHICONE 40 MG/0.6 ML BOTTLE GT SCH ×4 (11:48→22:26)
[2018-09-04] MEDS: ZINC OXIDE 20% TOPICAL OINTMENT 30 GM TUBE TP SCH ×2 (11:48→22:23)
--- NOTE | 2018-09-04 13:43 | PN ---
Teaching Attending Note Name of Resident: Jamari Claire ATTENDING PHYSICIAN STATEMENT I saw and evaluated the patient. I reviewed the resident's note and discussed the case with the resident. I agree with the resident's findings and plan as documented. SUBJECTIVE: No evens over night. OBJECTIVE: NAD, Awake, comfortable, calm CV: RRR Lungs: poor effort ,clear b/l anteriorly Ext: No edema ABd: distended, soft, deformed , PEG in with slight discharge on gauze. tympanic. + BS. draining bag in epigastric area with surrounding erythema Skin; sacral decub was not examined today ASSESSMENT AND PLAN: Unfortunate 37 y/o man with h/o MR, congenital quadriplegia , cerebral palsy, seizure disorder, Hip dislocation, GERD, thyroid disease , scoliosis, high out put Entero-cutaneous fistula, feeding tube insertion and other medical problems who was treated for PNA/hypoxia and was dc on 09/01 to return on same day as [facility] declined him. 1- Recent PNA: possible aspiration. - cont levaquin in po form. 4 days left - aspiration precautions - O2 supplementation 2- Diarrhea.resolved 3- h/o Seizures: cont home meds 4- Nutrition :change TF to Jevity 5- Sacral decub ulcer.frequent turning Dispo: Mom will bring HCP paperwork today and will make him DNR/DNI. will touch base with [place].
[2018-09-05] MEDS: HEPARIN NA (PORCINE) 5,000 UNITS/ML 1ML VIAL SQ SCH ×3 (02:41→17:38)
[2018-09-05] MEDS: TIAGABINE GT SCH ×3 (06:41→22:35)
[2018-09-05] MEDS: ATENOLOL 25 MG TABLET (FP) GT SCH (06:42)
[2018-09-05] MEDS: CALCIUM 500MG/VIT-D 200 UNITS COMBO TABLET (FP) PO SCH ×3 (06:42→22:37)
[2018-09-05] MEDS: BACLOFEN 10 MG TABLET (FP) GT SCH ×3 (06:42→22:37)
[2018-09-05] MEDS: CLOTRIMAZOLE 1% CREAM 15 GM TUBE TP SCH ×3 (06:43→22:33)
[2018-09-05] MEDS ORDERED: PT OWN MED DRAWER 7, Y5N ONE ×4 (06:54→17:48)
[2018-09-05 08:22] LABS: BASO % 1.2 % (0-2.0); EOS % 16.4 % (0-4.5); HEMATOCRIT 25.3 % (35.4-49); HEMOGLOBIN 8.4 GM/dL (11.7-16.9); MCH 24.3 pg (25.7-33.7); MCHC 33.3 g/dl (32.0-35.9); MEAN CELL VOLUME 73.2 fl (80-96); MEAN PLT VOLUME 7.6 fl (7.5-11.1); MONO % 7.6 % (3.8-10.2); NEUT % 49.8 % (42.8-82.8); RBC 3.46 M/mm3 (4.00-5.60); RDW 15.9 % (11.9-15.9); WHITE BLOOD COUNT 7.4 K/mm3 (4.0-10.0)
[2018-09-05 08:34] LABS: BLOOD UREA NITROGEN 8.6 mg/dL (7-18); CREATININE 0.3 mg/dL (0.55-1.3); MAGNESIUM 2.2 mg/dL (1.8-2.4); PHOSPHOROUS 4.3 mg/dL (2.5-4.9); POTASSIUM 4.4 mmol/L (3.5-5.1)
[2018-09-05 09:12] LABS: PLATELET COUNT 462 K/MM3 (134-434)
[2018-09-05] MEDS: FERROUS SO4 300 MG/5 ML ORAL SOLN UNIT DOSE CUPS GT SCH (10:16)
[2018-09-05] MEDS: LACTOBACILLUS ACIDOPHILUS 1 TABLET GT SCH ×2 (10:16→22:37)
[2018-09-05] MEDS: ZINC OXIDE 20% TOPICAL OINTMENT 30 GM TUBE TP SCH ×2 (10:17→22:33)
[2018-09-05] MEDS: SCOPOLAMINE HYDROBROMIDE 1 PATCH PATCH.TD72 TD SCH (10:17)
[2018-09-05] MEDS: TIZANIDINE HCL 4 MG TABLET GT SCH ×4 (11:39→22:38)
[2018-09-05] MEDS: SIMETHICONE 40 MG/0.6 ML BOTTLE GT SCH ×4 (11:39→22:36)
--- NOTE | 2018-09-05 14:16 | PN ---
Progress Note (short form) - Note Progress Note: Subjective: no events ove rnight Objective: Vital Signs: Last Vital Signs Temp Pulse Resp BP Pulse Ox 97.7 F 86 20 110/66 100 09/05/18 10:00 09/05/18 10:00 09/05/18 10:00 09/05/18 10:00 09/04/18 21:00 Laboratory Results - last 24 hr 09/05/18 09/05/18 06:30 06:30 WBC 7.4 RBC 3.46 L Hgb 8.4 L Hct 25.3 L MCV 73.2 L MCH 24.3 L MCHC 33.3 RDW 15.9 Plt Count 462 H MPV 7.6 Absolute Neuts (auto) 3.7 Neutrophils % 49.8 Lymphocytes % 25.0 D Monocytes % 7.6 Eosinophils % 16.4 H Basophils % 1.2 Nucleated RBC % 0 Sodium 136 Potassium 4.4 Chloride 99 Carbon Dioxide 32 Anion Gap 4 L BUN 8.6 Creatinine 0.3 L Est GFR (CKD-EPI)AfAm 195.17 Est GFR (CKD-EPI)NonAf 168.40 Random Glucose 89 Calcium 9.0 Phosphorus 4.3 Magnesium 2.2 Physical Exam: NAD, Awake, comfortable, calm CV: RRR Lungs: poor effort ,clear b/l anteriorly Ext: No edema ABd: distended, soft, deformed , PEG in with slight discharge on gauze. tympanic. + BS. draining bag in epigastric area with surrounding erythema ASSESSMENT AND PLAN: Unfortunate 37 y/o man with h/o MR, congenital quadriplegia , cerebral palsy, seizure disorder, Hip dislocation, GERD, thyroid disease , scoliosis, high out put Entero-cutaneous fistula, feeding tube insertion and other medical problems who was treated for PNA/hypoxia and was dc on 09/01 to return on same day as [facility] declined him. 1- Recent PNA: possible aspiration. - cont levaquin in po form. 3 days left - aspiration precautions - O2 supplementation 2- Diarrhea.resolved 3- h/o Seizures: cont home meds 4- Nutrition :change TF to Jevity 5- Sacral decub ulcer.frequent turning Dispo: DNR /DNI per d/w mom wh is he HCP . paperwork in chart possible dc to [place] tomorrow Visit type - Emergency Visit Emergency Visit: Yes ED Registration Date: 09/01/18 Care time: The patient presented to the Emergency Department on the above date and was hospitalized for further evaluation of their emergent condition. - New Patient This patient is new to me today: No - Critical Care Critical Care patient: No
[2018-09-05] MEDS: NYSTATIN POWDER 100,000 UNITS/GM - 15 GM TOPICAL POWDER TP SCH (22:35)
[2018-09-06] MEDS: HEPARIN NA (PORCINE) 5,000 UNITS/ML 1ML VIAL SQ SCH ×3 (02:09→18:07)
[2018-09-06] MEDS: CALCIUM 500MG/VIT-D 200 UNITS COMBO TABLET (FP) PO SCH ×3 (06:47→21:09)
[2018-09-06] MEDS: BACLOFEN 10 MG TABLET (FP) GT SCH ×3 (06:47→21:09)
[2018-09-06] MEDS: TIAGABINE GT SCH ×3 (06:47→21:18)
[2018-09-06] MEDS: CLOTRIMAZOLE 1% CREAM 15 GM TUBE TP SCH ×3 (06:48→21:09)
[2018-09-06] MEDS ORDERED: PT OWN MED DRAWER 7, Y5N ONE ×3 (06:51→19:09)
[2018-09-06] MEDS: ATENOLOL 25 MG TABLET (FP) GT SCH (06:52)
--- NOTE | 2018-09-06 09:49 | CONSULT ---
- Consultation REQUESTING PROVIDER: CONSULT REQUEST: We have been asked to surgically evaluate this patient for sacral ulcer. PCP:Viral Galvez HISTORY OF PRESENT ILLNESS: The pt is a 38 y.o. with a history of Cerebral Palsy, Seizure disorder, Hyperthyroidism, anemia and recurrent aspiration pneumonia. He was sent to a nursing facility and sent home because of desaturation. Upon admission he was also noted to be hypothermic and was admitted to the hospital. Surgery called to evaluate his sacral ulcer wounds. Upon this admission he was found to be afebrile. PMHx: as above PSHx: Gtube Home Medications Medication Instructions Recorded Atenolol [Tenormin] 37.5 mg GT AM 03/03/17 Baclofen 10 mg GT TID 03/03/17 Bisacodyl 10 mg RC DAILY PRN 03/03/17 Potassium Chloride Oral Soln [KCl 7.5 ml GT DAILY 03/03/17 Oral Solution] Tizanidine HCl 4 mg PO QID 03/03/17 Clotrimazole 1 applic TP TID 10/16/17 Ferrous Sulfate 220 mg GT DAILY 10/16/17 Fluticasone Prop 0.05% Nasal 1 - 2 spray NS DAILY 10/16/17 [Flonase -] Multivit-Minerals/Ferrous Fum 30 ml GT DAILY 10/16/17 [Multivitamin Liquid] Zinc Gluconate [Zinc] 100 mg GT HS 10/16/17 Zinc Oxide 20% Topical Oint 1 applic TP BID 10/16/17 Albuterol 0.083% Nebulizer Lupe 1 neb NEB Q4H PRN 05/14/18 [Ventolin 0.083% Nebulizer Soln -] Calcium Carbonate/Vitamin D3 1 each PO TID 05/14/18 [Oystercal-D 500 mg-400 Unit Tb] Simethicone Liquid [Mylicon Liquid 40 mg GT QID 05/14/18 -] Tiagabine HCl [Gabitril] 4 mg GT TID 05/14/18 Lactobacillus Acidophilus [Bacid -] 1 tab GT BID tab 05/15/18 Polyethylene Glycol 3350 [Miralax 17 gm PO DAILY bottle 05/15/18 119 gm Btl -] Scopolamine Hydrobromide 1 patch TD Q72H patch.td72 08/31/18 [Transderm-Scop -] Clindamycin Topical Solution 1 applic TP HS 09/01/18 [Cleocin 1% Topical Solution -] Nut.tx.impaired Digest/Fiber 1,000 ml GT DAILY 09/01/18 [Vital 1.5 Gerald Liquid] Protein Supplement [Promod] 30 ml GT BID 09/01/18 Scopolamine [Transderm-Scop] 1.5 mg TD Q3D 09/01/18 levoFLOXacin [Levaquin -] 250 mg PO DAILY 09/02/18 Allergies Allergy/AdvReac Type Severity Reaction Status Date / Time piperacillin [From Zosyn] Allergy Verified 08/27/18 15:38 tazobactam [From Zosyn] Allergy Verified 08/27/18 15:38 REVIEW OF SYSTEMS: Unable to obtained PHYSICAL EXAM: GENERAL: Awake, non -responsive Back: No decubitus ulcers visualized. Right buttock region: irregular shaped ulcer/non-tracking. superficial. Approximately 2x3 cm and 1 x2 cm. Clean base. No boggines or erythema noted. LExt: No ulcers noted. Heel with b/l protective egg crate in place and skin intact. Upper ext: No ulcers noted/upper ext contracted. Vital Signs Temperature 98.6 F 09/06/18 05:47 Pulse Rate 82 09/06/18 05:47 Respiratory Rate 20 09/06/18 05:47 Blood Pressure 129/67 09/06/18 05:47 O2 Sat by Pulse Oximetry (%) 100 09/05/18 21:00 Lab Results WBC 7.4 K/mm3 (4.0-10.0) 09/05/18 06:30 RBC 3.46 M/mm3 (4.00-5.60) L 09/05/18 06:30 Hgb 8.4 GM/dL (11.7-16.9) L 09/05/18 06:30 Hct 25.3 % (35.4-49) L 09/05/18 06:30 MCV 73.2 fl (80-96) L 09/05/18 06:30 MCHC 33.3 g/dl (32.0-35.9) 09/05/18 06:30 RDW 15.9 % (11.9-15.9) 09/05/18 06:30 Plt Count 462 K/MM3 (134-434) H 09/05/18 06:30 Sodium 136 mmol/L (136-145) 09/05/18 06:30 Potassium 4.4 mmol/L (3.5-5.1) 09/05/18 06:30 Chloride 99 mmol/L (98-107) 09/05/18 06:30 Carbon Dioxide 32 mmol/L (21-32) 09/05/18 06:30 Anion Gap 4 MMOL/L (8-16) L 09/05/18 06:30 BUN 8.6 mg/dL (7-18) 09/05/18 06:30 Creatinine 0.3 mg/dL (0.55-1.3) L 09/05/18 06:30 Random Glucose 89 mg/dL (74-106) 09/05/18 06:30 Calcium 9.0 mg/dL (8.5-10.1) 09/05/18 06:30 INR 1.31 (0.83-1.09) H 09/01/18 20:10 Microbiology 09/02/18 06:30 Stool Clostridioides difficile Antigen - Final 09/02/18 06:30 Stool Clostridioides difficile Toxin Assay - Final 09/02/18 02:20 Urine For Antigen Detection Legionella Antigen - Final 09/02/18 02:20 Urine For Antigen Detection Streptococcus pneumoniae Antigen (M - Final 09/02/18 02:20 Urine - Urine - Catheterized Urine Culture - Final NO GROWTH OBTAINED 09/01/18 20:10 Blood - Peripheral Venous Blood Culture - Preliminary NO GROWTH OBTAINED AFTER 96 HOURS, INCUBATION TO CONTINUE FOR 1 DAYS. 09/01/18 20:10 Blood - Peripheral Venous Blood Culture - Preliminary NO GROWTH OBTAINED AFTER 96 HOURS, INCUBATION TO CONTINUE FOR 1 DAYS. A/P: 38 yo male with CP/contracted and bed bound. No need for surgical debridment -Reposition every two hours while in bed -Air mattress recommended -Use drawsheets and Trendelenburg when repositioning to reduce friction and shear -Manage incontinence via timely cleansing, use of appropriate incontinence disposables and use of barrier ointment to intact skin -Ensure adequate hydration/nutrition, supplementation per primary team -Ensure off-loading to all bony areas (heels, ankles, hips and tailbone) with Allevyn/Optifoam -Clean open wounds with normal saline and apply optifoam D/w Dr. Jin
[2018-09-06] MEDS: FERROUS SO4 300 MG/5 ML ORAL SOLN UNIT DOSE CUPS GT SCH (10:37)
[2018-09-06] MEDS: LACTOBACILLUS ACIDOPHILUS 1 TABLET GT SCH ×2 (10:40→21:09)
[2018-09-06] MEDS: TIZANIDINE HCL 4 MG TABLET GT SCH ×4 (10:40→21:08)
[2018-09-06] MEDS: NYSTATIN POWDER 100,000 UNITS/GM - 15 GM TOPICAL POWDER TP SCH ×2 (10:41→21:09)
[2018-09-06] MEDS: ZINC OXIDE 20% TOPICAL OINTMENT 30 GM TUBE TP SCH ×2 (10:42→21:10)
[2018-09-06] MEDS: SIMETHICONE 40 MG/0.6 ML BOTTLE GT SCH ×4 (11:56→21:10)
--- NOTE | 2018-09-06 14:24 | PN ---
Physical Exam: SUBJECTIVE: Patient seen and examined at bedside. No overnight events. OBJECTIVE: Vital Signs Period Temp Pulse Resp BP Sys/Bruce Pulse Ox Last 24 Hr 97.5 F-98.6 F 81-93 19-20 92-129/53-78 100-100 GENERAL: Awake, non-interactive HEAD: Normal with no signs of trauma. EYES: EOMI Sclera Clear ENT: MMM LUNGS: Scattered Rhonchi HEART: RRR S1S2 ABDOMEN: Distended, Urostomy bag in place, J Tube. Erythema around urostomy site. EXTREMITIES: No CCCe Active Medications Generic Name Dose Route Start Last Admin Trade Name Freq PRN Reason Stop Dose Admin Albuterol Sulfate 1 amp 09/02/18 07:39 09/03/18 20:45 Ventolin 0.083% Nebulizer Soln - NEB 1 amp Q4H PRN Administration ASTHMA Atenolol 37.5 mg 09/03/18 07:00 09/06/18 06:52 Tenormin - GT 37.5 mg AM TOSIN Administration Baclofen 10 mg 09/02/18 14:00 09/06/18 06:47 Lioresal - GT 10 mg TID TOSIN Administration Bisacodyl 10 mg 09/02/18 07:39 Dulcolax Suppository - RC DAILY PRN CONSTIPATION Calcium Carbonate/Cholecalciferol 1 tab 09/02/18 14:00 09/06/18 06:47 Os-Gerald 500+D - PO 1 tab TID TOSIN Administration Clotrimazole 1 applic 09/02/18 14:00 09/06/18 06:48 Lotrimin 1% Cream - TP 1 applic TID TOSIN Administration Ferrous Sulfate 220 mg 09/02/18 10:00 09/06/18 10:37 Feosol GT 220 mg DAILY TOSIN Administration Heparin Sodium (Porcine) 5,000 unit 09/02/18 02:00 09/06/18 10:39 Heparin - SQ 5,000 unit Q8H-IV TOSIN Administration Lactobacillus Acidophilus 1 tab 09/02/18 10:00 09/06/18 10:40 Bacid - GT 1 tab BID TOSIN Administration Levofloxacin 250 mg 09/03/18 12:15 09/06/18 06:47 Levaquin - PO 250 mg DAILY@0600 TOSIN Administration Multi-Ingredient Ointment 1 applic 09/02/18 14:02 09/06/18 10:42 Zinc Oxide TP 1 applic BID TOSIN Administration Patient's Own 1 each 09/02/18 22:00 09/06/18 06:47 Medication (Non- GT 1 each Formulary) Tiagabine TID TOSIN Administration (Gabitril 4mg) Non-Formulary Medication 1 each 09/06/18 08:15 Patient's Own Med GT HS TOSIN Nystatin 1 applic 09/05/18 22:00 09/06/18 10:41 Nystop Powder - TP 1 applic BID TOSIN Administration Scopolamine HBr 1 patch 09/02/18 10:00 09/05/18 10:17 Transderm-Scop - TD 1 patch Q3D@1000 TOSIN Administration Simethicone 40 mg 09/02/18 10:00 09/06/18 11:56 Mylicon Liquid - GT Not Given QID TOSIN Tizanidine HCl 4 mg 09/02/18 10:00 09/06/18 10:40 Tizanidine Hcl GT 4 mg QID TOSIN Administration ASSESSMENT/PLAN: Patient is a 38 yo M w/ PMH of CP with severe intellectual disability/non-verbal /quadriplegia, seizure disorder, hyperthyroidism, G-tube and J-tube placement, and SBO, who presented to [facility] from [facility] due to dyspnea, cough, fever, and respiratory distress (desaturating to the 70's per staff). # Recent Pneumonia 2/2 possibly 2/2 Aspiration - Levofloxacin 250 mg Daily Switched to PO. 2 more days of treatment -HOB elevation to prevent aspiration # Sacral Decubitus Ulcer -Wound Care consult # Diarrhea - Holding Constipation medications at this juncture # Seizure d/o -Continue Gabitril, medication non-formulary. Medication received from [facility]. DVT ppx: SCDs FEN: No Fluids Monitor Electrolytes TF Vital 1.2 Dietary on board Dispo: Med-Surg Visit type - Emergency Visit Emergency Visit: No - New Patient This patient is new to me today: No - Critical Care Critical Care patient: No
--- NOTE | 2018-09-06 14:37 | PN ---
Teaching Attending Note Name of Resident: Jamari Claire ATTENDING PHYSICIAN STATEMENT I saw and evaluated the patient. I reviewed the resident's note and discussed the case with the resident. I agree with the resident's findings and plan as documented. SUBJECTIVE: no events over night OBJECTIVE: NAD, Awake, comfortable, calm CV: RRR Lungs: poor effort ,clear b/l anteriorly Ext: No edema ABd: distended, soft, deformed , PEG in with slight discharge on gauze. tympanic. + BS. draining bag full of gas, in epigastric area with surrounding erythema ASSESSMENT AND PLAN: Unfortunate 37 y/o man with h/o MR, congenital quadriplegia , cerebral palsy, seizure disorder, Hip dislocation, GERD, thyroid disease , scoliosis, high out put Entero-cutaneous fistula, feeding tube insertion and other medical problems who was treated for PNA/hypoxia and was dc on 09/01 to return on same day as [facility] declined him. 1- Recent PNA: possible aspiration. - cont levaquin in po form. 2 days left - aspiration precautions - O2 supplementation 2- Diarrhea.resolved 3- h/o Seizures: cont home meds 4- Nutrition :TF to [facility] 5- Sacral decub ulcer.frequent turning Dispo: Meeting with mom, DONNA form done done. DNR/DNI possible return to [facility] tomorrow
[2018-09-06] MEDS: ALBUTEROL SO4 0.083% IH SOL 2.5 MG/3 ML VIAL.NEB. NEB PRN (21:52)
[2018-09-07] MEDS: HEPARIN NA (PORCINE) 5,000 UNITS/ML 1ML VIAL SQ SCH ×3 (01:05→17:34)
[2018-09-07] MEDS: TIAGABINE GT SCH ×3 (05:02→21:13)
[2018-09-07] MEDS: BACLOFEN 10 MG TABLET (FP) GT SCH ×3 (05:03→21:13)
[2018-09-07] MEDS: CALCIUM 500MG/VIT-D 200 UNITS COMBO TABLET (FP) PO SCH ×3 (05:03→21:13)
[2018-09-07] MEDS: ATENOLOL 25 MG TABLET (FP) GT SCH (06:20)
[2018-09-07] MEDS: CLOTRIMAZOLE 1% CREAM 15 GM TUBE TP SCH ×3 (06:20→21:14)
[2018-09-07] MEDS: FERROUS SO4 300 MG/5 ML ORAL SOLN UNIT DOSE CUPS GT SCH (10:24)
[2018-09-07] MEDS: TIZANIDINE HCL 4 MG TABLET GT SCH ×4 (10:24→21:12)
[2018-09-07] MEDS: SIMETHICONE 40 MG/0.6 ML BOTTLE GT SCH ×4 (10:25→21:11)
[2018-09-07] MEDS: LACTOBACILLUS ACIDOPHILUS 1 TABLET GT SCH ×2 (10:27→21:16)
[2018-09-07] MEDS: NYSTATIN POWDER 100,000 UNITS/GM - 15 GM TOPICAL POWDER TP SCH ×2 (11:07→21:13)
[2018-09-07] MEDS: ZINC OXIDE 20% TOPICAL OINTMENT 30 GM TUBE TP SCH ×2 (11:08→21:14)
--- NOTE | 2018-09-07 15:54 | PN ---
Teaching Attending Note Name of Resident: Papi Zambrano ATTENDING PHYSICIAN STATEMENT I saw and evaluated the patient. I reviewed the resident's note and discussed the case with the resident. I agree with the resident's findings and plan as documented. SUBJECTIVE: No events over night OBJECTIVE: NAD, Awake, comfortable, calm, upper resp secretions CV: RRR Lungs: poor effort,clear b/l anteriorly Ext: No edema ABd: distended, soft, deformed, PEG in with slight discharge on gauze. tympanic. + BS. draining bag , in epigastric area with surrounding erythema ASSESSMENT AND PLAN: Unfortunate 37 y/o man with h/o MR, congenital quadriplegia , cerebral palsy, seizure disorder, Hip dislocation, GERD, thyroid disease , scoliosis, high out put Entero-cutaneous fistula, feeding tube insertion and other medical problems who was treated for PNA/hypoxia and was dc on 09/01 to return on same day as [facility] declined him. 1- Recent PNA: possible aspiration.recurrent aspiration events with recurrent PNA 2- H/o seizure 3- sacral decub ulcer plan : Continue levaquin x 1 more day ( last dose tomorrow) Aspiration precautions Cont nutrition with [facility] TF. 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 Also poor ability to tolerate his TF at goal. [facility] accepted him for tomorrow. HE vine[facility] be evaluated for Hospice there. dc early in am after levaquin dose
--- NOTE | 2018-09-07 17:11 | PN ---
Physical Exam: SUBJECTIVE: Patient seen and examined at bedside. No acute events overnight. OBJECTIVE: Vital Signs Period Temp Pulse Resp BP Sys/Bruce Pulse Ox Last 24 Hr 97.4 F-98.5 F 74-90 20-20 85-111/50-68 100-100 GENERAL: Awake, non-interactive HEAD: Normal with no signs of trauma. EYES: EOMI Sclera Clear ENT: MMM LUNGS: Coarse breath sounds throughout. HEART: RRR S1S2 ABDOMEN: Distended, Urostomy bag in place, J Tube. Erythema around urostomy site. EXTREMITIES: No CCC. Active Medications Generic Name Dose Route Start Last Admin Trade Name Freq PRN Reason Stop Dose Admin Albuterol Sulfate 1 amp 09/02/18 07:39 09/06/18 21:52 Ventolin 0.083% Nebulizer Soln - NEB 1 amp Q4H PRN Administration ASTHMA Atenolol 37.5 mg 09/03/18 07:00 09/07/18 06:20 Tenormin - GT 37.5 mg AM TOSIN Administration Baclofen 10 mg 09/02/18 14:00 09/07/18 13:26 Lioresal - GT 10 mg TID TOSIN Administration Bisacodyl 10 mg 09/02/18 07:39 Dulcolax Suppository - RC DAILY PRN CONSTIPATION Calcium Carbonate/Cholecalciferol 1 tab 09/02/18 14:00 09/07/18 13:26 Os-Gerald 500+D - PO 1 tab TID TOSIN Administration Clotrimazole 1 applic 09/02/18 14:00 09/07/18 13:44 Lotrimin 1% Cream - TP 1 applic TID TOSIN Administration Ferrous Sulfate 220 mg 09/02/18 10:00 09/07/18 10:24 Feosol GT 220 mg DAILY TOSIN Administration Heparin Sodium (Porcine) 5,000 unit 09/02/18 02:00 09/07/18 10:27 Heparin - SQ 5,000 unit Q8H-IV TOSIN Administration Lactobacillus Acidophilus 1 tab 09/02/18 10:00 09/07/18 10:27 Bacid - GT 1 tab BID TOSIN Administration Levofloxacin 250 mg 09/08/18 06:00 Levaquin - PO 09/08/18 06:01 DAILY@0600 TOSIN Multi-Ingredient Ointment 1 applic 09/02/18 14:02 09/07/18 11:08 Zinc Oxide TP 1 applic BID TOSIN Administration Patient's Own 1 each 09/02/18 22:00 09/07/18 13:30 Medication (Non- GT 1 each Formulary) Tiagabine TID TOSIN Administration (Gabitril 4mg) Non-Formulary Medication 1 each 09/06/18 08:15 Patient's Own Med GT HS TOSIN Nystatin 1 applic 09/05/18 22:00 09/07/18 11:07 Nystop Powder - TP 1 applic BID TOSIN Administration Scopolamine HBr 1 patch 09/02/18 10:00 09/05/18 10:17 Transderm-Scop - TD 1 patch Q3D@1000 TOSIN Administration Simethicone 40 mg 09/02/18 10:00 09/07/18 13:30 Mylicon Liquid - GT 40 mg QID TOSIN Administration Tizanidine HCl 4 mg 09/02/18 10:00 09/07/18 13:25 Tizanidine Hcl GT 4 mg QID TOSIN Administration ASSESSMENT/PLAN: Patient is a 38 yo M w/ PMH of CP with severe intellectual disability/non-verbal /quadriplegia, seizure disorder, hyperthyroidism, G-tube and J-tube placement, and SBO, who presented to [facility] from [facility] due to dyspnea, cough, fever, and respiratory distress (desaturating to the 70's per staff). # Recent Pneumonia 2/2 possibly 2/2 Aspiration - Levofloxacin 250 mg Daily Switched to PO. 1 more day of treatment -HOB elevation to prevent aspiration # Sacral Decubitus Ulcer -Wound Care consult # Diarrhea - Holding Constipation medications at this juncture # Seizure d/o -Continue Gabitril, medication non-formulary. Medication received from [facility]. DVT ppx: SCDs FEN: No Fluids Monitor Electrolytes TF Vital 1.2 Dietary on board Dispo: [facility] transfer tomorrow Visit type - Emergency Visit Emergency Visit: Yes ED Registration Date: 09/01/18 Care time: The patient presented to the Emergency Department on the above date and was hospitalized for further evaluation of their emergent condition. - New Patient This patient is new to me today: No - Critical Care Critical Care patient: No - Discharge Referral Referred to [facility] Med P.C.: No
--- NOTE | 2018-09-07 19:20 | RAPID ---
Physical Examination Vital Signs: Vital Signs Temperature 98.0 F 09/07/18 18:23 Pulse Rate 78 09/07/18 18:48 Respiratory Rate 16 09/07/18 18:48 Blood Pressure 65/52 L 09/07/18 18:48 O2 Sat by Pulse Oximetry (%) 100 09/07/18 09:00 Findings/Remarks: Rapid response for low BP. BP 60/47, came up to 73/47, remained around 60/40. Free water opened into G tube. Called Anesthesia. Anesthesia and RN unable to get peripheral. Anesthesia declined to do central line or IO. Declined to look for line with US. ED called for central line but opted to IO. Plan - IO access by resident - bolus of fluid once access achieved - patient DNR/DNI, per Marsha and resident Spoke at length with patients mother and she does not want pressors. Discussed his blood pressure may continue to lower, she would not like pressors. She is interested in fluids for treatment. Labs: CBC, BMP 09/05/18 06:30 09/05/18 06:30
[2018-09-07] MEDS ORDERED: LIDOCAINE HCL 2% 100 MG/5 ML DISP.SYRIN IVPUSH ONE (19:36)
[2018-09-07] MEDS ORDERED: SODIUM CHLORIDE 500 ML IV STA ×2 (19:46→19:47)
[2018-09-08] MEDS: HEPARIN NA (PORCINE) 5,000 UNITS/ML 1ML VIAL SQ SCH ×3 (01:09→11:17)
[2018-09-08] MEDS: TIAGABINE GT SCH (05:15)
[2018-09-08] MEDS: CALCIUM 500MG/VIT-D 200 UNITS COMBO TABLET (FP) PO SCH (05:15)
[2018-09-08] MEDS: BACLOFEN 10 MG TABLET (FP) GT SCH (05:15)
[2018-09-08] MEDS: CLOTRIMAZOLE 1% CREAM 15 GM TUBE TP SCH (05:15)
[2018-09-08 05:40] VITALS: TEMP 98
[2018-09-08] MEDS: ATENOLOL 25 MG TABLET (FP) GT SCH (06:18)
[2018-09-08] MEDS: SCOPOLAMINE HYDROBROMIDE 1 PATCH PATCH.TD72 TD SCH (11:00)
[2018-09-08] MEDS: FERROUS SO4 300 MG/5 ML ORAL SOLN UNIT DOSE CUPS GT SCH (11:00)
--- NOTE | 2018-09-08 11:00 | DS ---
Physical Exam: SUBJECTIVE: Patient seen and examined at bedside. Had hypotensive episode last night, rapid response was called, blood pressure corrected with two 500cc boluses. OBJECTIVE: Vital Signs Period Temp Pulse Resp BP Sys/Bruce Pulse Ox Last 24 Hr 97.6 F-98.3 F 70-94 14-20 42-114/29-74 100 PHYSICAL EXAM GENERAL: Awake, non-interactive HEAD: Normal with no signs of trauma. EYES: EOMI Sclera Clear ENT: MMM LUNGS: Coarse breath sounds throughout. HEART: RRR S1S2 ABDOMEN: Distended, Urostomy bag in place, J Tube. Erythema around urostomy site. EXTREMITIES: No CCC. LABS Laboratory Results - last 24 hr 09/07/18 18:27 POC Glucometer 110 HOSPITAL COURSE: Date of Admission:09/01/18 Patient is a 38 yo M w/ PMH of CP with severe intellectual disability/non-verbal /quadriplegia, seizure disorder, hyperthyroidism, G-tube and J-tube placement, and SBO, who presented to [facility] due to dyspnea, cough, fever, and respiratory distress (desaturating to the 70's per staff). He was returning to the ED after inpatient treatment for the same acute issues. He completed ABx therapy as an inpatient. Hospitalization was complicated by an episode of hypotension which corrected with fluids, and medication was adjusted. He was discharged to hospice care at . Date of Discharge: 09/08/18 Minutes to complete discharge: 40 Discharge Summary Reason For Visit: QUADRIPLEGIC INFANTILE CEREBRAL PALSY,HYPOXIA Condition: Stable - Instructions Diet, Activity, Other Instructions: You presented to the hospital due to decrease blood oxygen levels while at the [facility]. You were also found to have a pneumonia. You were treated with antibiotics. Decision has been made to have you become DNR/DNI. Please resume all of your home medications as previously prescribed. Below are the instructions to manage thew sacral ulcer on your lower back: -Reposition every two hours while in bed -Air mattress recommended -Use drawsheets and Trendelenburg when repositioning to reduce friction and shear -Manage incontinence via timely cleansing, use of appropriate incontinence disposables and use of barrier ointment to intact skin -Ensure adequate hydration/nutrition, supplementation per primary team -Ensure off-loading to all bony areas (heels, ankles, hips and tailbone) with Allevyn/Optifoam -Clean open wounds with normal saline and apply optifoam tenormin was decreased to 12.5 mg daily. hold for BP < 100 /60 Disposition: [facility] - Home Medications Comprehensive Discharge Medication List: Ambulatory Orders Baclofen 10 mg GT TID 03/03/17 Bisacodyl 10 mg RC DAILY PRN 03/03/17 Potassium Chloride Oral Soln [KCl Oral Solution] 7.5 ml GT DAILY 03/03/17 Tizanidine HCl 4 mg PO QID 03/03/17 Clotrimazole 1 applic TP TID 10/16/17 Ferrous Sulfate 220 mg GT DAILY 10/16/17 Fluticasone Prop 0.05% Nasal [Flonase -] 1 - 2 spray NS DAILY 10/16/17 Multivit-Minerals/Ferrous Fum [Multivitamin Liquid] 30 ml GT DAILY 10/16/17 Zinc Gluconate [Zinc] 100 mg GT HS 10/16/17 Zinc Oxide 20% Topical Oint 1 applic TP BID 10/16/17 Albuterol 0.083% Nebulizer Lupe [Ventolin 0.083% Nebulizer Soln -] 1 neb NEB Q4H PRN 05/14/18 Calcium Carbonate/Vitamin D3 [Oystercal-D 500 mg-400 Unit Tb] 1 each PO TID Simethicone Liquid [Mylicon Liquid -] 40 mg GT QID 05/14/18 Tiagabine HCl [Gabitril] 4 mg GT TID 05/14/18 Lactobacillus Acidophilus [Bacid -] 1 tab GT BID tab 05/15/18 Polyethylene Glycol 3350 [Miralax 119 gm Btl -] 17 gm PO DAILY bottle 05/15/18 Clindamycin Topical Solution [Cleocin 1% Topical Solution -] 1 applic TP HS 03/10 Nut.tx.impaired Digest/Fiber [Vital 1.5 Gerald Liquid] 1,000 ml GT DAILY 09/01/18 Protein Supplement [Promod] 30 ml GT BID 09/01/18 Scopolamine [Transderm-Scop] 1.5 mg TD Q3D 09/01/18 Atenolol [Tenormin -] 12.5 mg GT DAILY 09/07/18 This patient is new to me today: No Emergency Visit: No Critical Care patient: No - Discharge Referral Referred to [facility] Med P.C.: No
[2018-09-08] MEDS: ZINC OXIDE 20% TOPICAL OINTMENT 30 GM TUBE TP SCH (11:01)
[2018-09-08] MEDS: NYSTATIN POWDER 100,000 UNITS/GM - 15 GM TOPICAL POWDER TP SCH (11:02)
[2018-09-08] MEDS: TIZANIDINE HCL 4 MG TABLET GT SCH (11:02)
[2018-09-08] MEDS: SIMETHICONE 40 MG/0.6 ML BOTTLE GT SCH (11:07)
[2018-09-08] MEDS: LACTOBACILLUS ACIDOPHILUS 1 TABLET GT SCH (11:07)
[2018-09-08 12:28] VITALS: BP 117/55; PULSE 106
--- NOTE | 2018-09-08 14:27 | PN ---
Teaching Attending Note Name of Resident: Jamari Claire ATTENDING PHYSICIAN STATEMENT I saw and evaluated the patient. I reviewed the resident's note and discussed the case with the resident. I agree with the resident's findings and plan as documented. SUBJECTIVE: Patient is comfortable with no acute distress. OBJECTIVE: Vital Signs Temperature 98 F 09/08/18 05:39 Pulse Rate 106 H 09/08/18 10:53 Respiratory Rate 20 09/08/18 10:53 Blood Pressure 117/55 L 09/08/18 10:53 O2 Sat by Pulse Oximetry (%) 93 L 09/08/18 09:00 GE: happy , smiling, non verbal HEAD: Normal with no signs of trauma. EYES: EOMI Sclera Clear ENT: MMM LUNGS: Coarse breath sounds throughout. HEART: RRR S1S2 ABDOMEN: non distended, Urostomy bag in place, J Tube. Erythema around urostomy site. EXTREMITIES: contracted CBCD WBC 7.4 K/mm3 (4.0-10.0) 09/05/18 06:30 RBC 3.46 M/mm3 (4.00-5.60) L 09/05/18 06:30 Hgb 8.4 GM/dL (11.7-16.9) L 09/05/18 06:30 Hct 25.3 % (35.4-49) L 09/05/18 06:30 MCV 73.2 fl (80-96) L 09/05/18 06:30 MCHC 33.3 g/dl (32.0-35.9) 09/05/18 06:30 RDW 15.9 % (11.9-15.9) 09/05/18 06:30 Plt Count 462 K/MM3 (134-434) H 09/05/18 06:30 MPV 7.6 fl (7.5-11.1) 09/05/18 06:30 CMP Sodium 136 mmol/L (136-145) 09/05/18 06:30 Potassium 4.4 mmol/L (3.5-5.1) 09/05/18 06:30 Chloride 99 mmol/L (98-107) 09/05/18 06:30 Carbon Dioxide 32 mmol/L (21-32) 09/05/18 06:30 Anion Gap 4 MMOL/L (8-16) L 09/05/18 06:30 BUN 8.6 mg/dL (7-18) 09/05/18 06:30 Creatinine 0.3 mg/dL (0.55-1.3) L 09/05/18 06:30 Random Glucose 89 mg/dL (74-106) 09/05/18 06:30 Calcium 9.0 mg/dL (8.5-10.1) 09/05/18 06:30 Total Bilirubin 0.4 mg/dL (0.2-1) 09/01/18 20:10 AST 7 U/L (15-37) L 09/01/18 20:10 ALT 12 U/L (13-61) L 09/01/18 20:10 Alkaline Phosphatase 66 U/L (45-117) 09/01/18 20:10 Total Protein 6.6 g/dl (6.4-8.2) 09/01/18 20:10 Albumin 2.7 g/dl (3.4-5.0) L 09/01/18 20:10 CARDIAC ENZYMES Creatine Kinase 68 U/L (26-308) 09/01/18 20:10 Troponin I < 0.02 ng/ml (0.00-0.05) 09/01/18 20:10 Home Medications Medication Instructions Recorded Baclofen 10 mg GT TID 03/03/17 Bisacodyl 10 mg RC DAILY PRN 03/03/17 Potassium Chloride Oral Soln [KCl 7.5 ml GT DAILY 03/03/17 Oral Solution] Tizanidine HCl 4 mg PO QID 03/03/17 Clotrimazole 1 applic TP TID 10/16/17 Ferrous Sulfate 220 mg GT DAILY 10/16/17 Fluticasone Prop 0.05% Nasal 1 - 2 spray NS DAILY 10/16/17 [Flonase -] Multivit-Minerals/Ferrous Fum 30 ml GT DAILY 10/16/17 [Multivitamin Liquid] Zinc Gluconate [Zinc] 100 mg GT HS 10/16/17 Zinc Oxide 20% Topical Oint 1 applic TP BID 10/16/17 Albuterol 0.083% Nebulizer Lupe 1 neb NEB Q4H PRN 05/14/18 [Ventolin 0.083% Nebulizer Soln -] Calcium Carbonate/Vitamin D3 1 each PO TID 05/14/18 [Oystercal-D 500 mg-400 Unit Tb] Simethicone Liquid [Mylicon Liquid 40 mg GT QID 05/14/18 -] Tiagabine HCl [Gabitril] 4 mg GT TID 05/14/18 Lactobacillus Acidophilus [Bacid -] 1 tab GT BID tab 05/15/18 Polyethylene Glycol 3350 [Miralax 17 gm PO DAILY bottle 05/15/18 119 gm Btl -] Clindamycin Topical Solution 1 applic TP HS 09/01/18 [Cleocin 1% Topical Solution -] Nut.tx.impaired Digest/Fiber 1,000 ml GT DAILY 09/01/18 [Vital 1.5 Gerald Liquid] Protein Supplement [Promod] 30 ml GT BID 09/01/18 Scopolamine [Transderm-Scop] 1.5 mg TD Q3D 09/01/18 Atenolol [Tenormin -] 12.5 mg GT DAILY 09/07/18 ASSESSMENT AND PLAN: Patient is a 37 y/o man with h/o MR, congenital quadriplegia , cerebral palsy, seizure disorder, Hip dislocation, GERD, thyroid disease , scoliosis, high out put Entero-cutaneous fistula, on feeding tube who was treated for PNA/hypoxia and was dc on 09/01 , patient returned back to the hospital on same day as [facility] declined him. # s/p Hypotension: s/p IVF overnight, events noted. patient was on Tenormin 37.5mg , was reduced to 12.5mg , blood pressure is stable at this time. # Recent possible aspiration PNA: completed levaquin; last dose today. # H/o seizure continue home meds. # sacral decub ulcer continue home feeding Aspiration precautions Cont nutrition with Jevity TF. Frequent turning [place] is accepted back today, is being discharged
== END 2018-09-08 11:45 | DRG 133 ==
LOC: JER 19:44 → JERBED 22:16 → J7W 09-02 03:34
PROVIDERS: ADMIT Internal Medicine; ATTEND Internal Medicine
DX: J96.01 Acute respiratory failure with hypoxia (principal); J69.0 Pneumonitis due to inhalation of food and vomit; L89.153 Pressure ulcer of sacral region, stage 3; G82.50 Quadriplegia, unspecified; F72 Severe intellectual disabilities; I95.9 Hypotension, unspecified; Z93.1 Gastrostomy status; Z93.4 Other artificial openings of gastrointestinal tract status; Q67.5 Congenital deformity of spine; E05.90 Thyrotoxicosis, unspecified without thyrotoxic crisis or storm; D56.3 Thalassemia minor; R68.0 Hypothermia, not associated with low environmental temperature; D50.9 Iron deficiency anemia, unspecified; G40.909 Epilepsy, unspecified, not intractable, without status epilepticus; Z93.3 Colostomy status; R19.7 Diarrhea, unspecified; K21.9 Gastro-esophageal reflux disease without esophagitis
CPT/HCPCS: 36415; 71045-TC-FY; 73590-TC-LT-FY; 80048; 80053; 81003; 82550; 82728; 82962; 83540; 83550; 83605; 83735; 83880; 84100; 84484; 85025; 85027; 85044; 85610; 85730; 87040; 87086; 87324; 87449; 87899; 93005; 93010; 94640; 99282-25; J0131; J0475; J1644; J7030

== ENCOUNTER 2018-11-18 20:38 | Emergency (ER) | payer OTHER ==
--- NOTE | 2018-11-18 20:55 | PDOC ---
History of Present Illness - General Chief Complaint: Shortness of Breath Stated Complaint: DIFF. BREATHING Time Seen by Provider: 11/18/18 20:40 - History of Present Illness Initial Comments: History limited 2/2 non-verbal Mr. Causey is a 38 y/o male with PMH significant for infantile cerebral palsy, intellectual disability, non-verbal, known seizure disorder, hyperthyroidism, pneumonia, hypoxia, dyspnea, presenting today from [facility] for difficulty breathing and low O2 saturations that started this evening. Patient was saturating in the 70s. long-term gave morphine and called EMS. SurgHx: G-tube, J-tube Past History - Past Medical History Allergies/Adverse Reactions: Allergies Allergy/AdvReac Type Severity Reaction Status Date / Time piperacillin [From Zosyn] Allergy Verified 11/18/18 21:00 tazobactam [From Zosyn] Allergy Verified 11/18/18 21:00 Anemia: Yes (dedra-thalassemia trait,) COPD: No DVT: No Dementia: Yes GI Disorders: Yes (GERD) Seizures: Yes (infantile cerebral palsy quadriplegia. profound mental retardartation,) Thyroid Disease: Yes (hyperthyroidism) - Surgical History Abdominal Surgery: Yes (feeding tube) - Immunization History Immunization Up to Date: Yes - Suicide/Smoking/Psychosocial Hx Smoking History: Never smoked Have you smoked in the past 12 months: No Hx Alcohol Use: No Drug/Substance Use Hx: No Substance Use Type: None Hx Substance Use Treatment: No Review of Systems - Review of Systems Able to Perform ROS?: No (non-verbal) *Physical Exam - Physical Exam Comments: GENERAL: Awake, alert, in no acute distress_ HEAD: No signs of trauma, normocephalic, atraumatic _ EYES: PERRLA, EOMI, sclera anicteric, conjunctiva clear_ ENT: nares patent, oropharynx clear without exudates. Moist mucosa_ NECK: no lymphadenopathy, JVD, or masses_ LUNGS: No distress, clear upper lung orr, wheezes in bibasilar lung orr HEART: Regular rate and rhythm, normal S1 and S2, no murmurs appreciated, peripheral pulses normal and equal bilaterally._ ABDOMEN: Distended, No guarding, no rebound. No masses_ EXTREMITIES: Contracted, muscle wasting, limited ROM NEUROLOGICAL: Quadriplegic. SKIN: Warm, diaphoretic, two sacral decubitus ulcers present Medical Decision Making - Medical Decision Making 38M with hx of developmental delay, pneumonia, hypoxia, dyspnea, non-verbal, presenting with difficulty breathing and low O2 sat in the 70s earlier this evening. Given morphine by half-way. BIBA. Oral and rectal temp 98F. At bedside, patient is resting comfortably. Saturating at 95% on room air. Patient started on 2L NC and saturating 100%. Hypotensive otherwise VSS. Obtain CXR. 11/18/18 22:02 CXR does not show any infiltrates or signs of pneumonia. Plan to d/c back to [facility]. BP has increased to 103/82 without any acute intervention. *DC/Admit/Observation/Transfer Diagnosis at time of Disposition: Dyspnea Qualifiers: Dyspnea type: unspecified Qualified Code(s): R06.00 - Dyspnea, unspecified - Discharge Dispostion Disposition: HOME Condition at time of disposition: Stable Decision to Admit order: No - Referrals - Patient Instructions Additional Instructions: Please follow up with the [facility] physician as needed. If Devone experiences any new, worsening, or concerning symptoms, including difficulty breathing, low O2 saturation, nausea/vomiting, fever, chills, or any other concerns, please return to the emergency department. - Post Discharge Activity
[2018-11-18 21:01] VITALS: TEMP 98.8; BMI 16.0
--- NOTE | 2018-11-18 21:40 | PDOC ---
Documentation entered by Carisa Tirado SCRIBE, acting as scribe for Austyn Gonzalez MD. Austyn Gonzalez MD: This documentation has been prepared by the Celestino ram Xhesika, SCRIBE, under my direction and personally reviewed by me in its entirety. I confirm that the documentation accurately reflects all work, treatment, procedures, and medical decision making performed by me. Attending Attestation - Resident Resident Name: Krishna Sofia - ED Attending Attestation I have performed the following: I have examined & evaluated the patient, The case was reviewed & discussed with the resident, I agree w/resident's findings & plan, Exceptions are as noted - HPI HPI: 11/18/18 21:13 The patient is a 38 year old male, accompanied by caregiver from [facility], with a significant PMH of mental retardation, congenital quadriplegia, cerebral palsy, seizures, hyperthyroidism, GERD, and chronic pneumonia, who was BIBA to the emergency department with SOB. Nursing staff noted that the patient had labored breathing so he was given morphine per standing orders in his chart. They noted he was hypoxic to 70s and called EMS. EMS notes when they arrived the patient was not hypoxic. History is limited due to patient's clinical condition. Allergies: Zosyn Past surgical history: G-tube, J-tube - Physicial Exam PE: 11/18/18 22:16 Patient is non-verbal, NAD LCTAB, normal wob Agree with detailed exam as documented by resident - Medical Decision Making 11/18/18 22:17 38M with above noted hx DNR/DNI on hospice at [facility] Initial vitals on arrival were notable for hypotension to 73/42 and SpO2 of 97% on RA Sent for evaluation of labored breathing and hypoxia Patient has had multiple episodes of HAP but presentation does not seem consistent with infection Will evaluated CXR for any acute pathology BP improved to patient's baseline w/o intervention Pt was never hypoxic in ED and did not require supplemental O2 Symptoms likely 2/2 mucus vs chronic condition No acute issues requiring immediate intervention DC back to [facility]
[2018-11-18 22:52] VITALS: BP 111/88; PULSE 89
== END 2018-11-18 22:48 ==
LOC: JER 20:38
DX: R06.00 Dyspnea, unspecified (principal); F73 Profound intellectual disabilities; G80.8 Other cerebral palsy; G40.909 Epilepsy, unspecified, not intractable, without status epilepticus; E05.90 Thyrotoxicosis, unspecified without thyrotoxic crisis or storm; K21.9 Gastro-esophageal reflux disease without esophagitis; Z87.01 Personal history of pneumonia (recurrent); Z93.1 Gastrostomy status; Z93.4 Other artificial openings of gastrointestinal tract status
CPT/HCPCS: 71045-TC-FY; 99283-25